=== PATIENT | female | born 1945 | race Caucasian/White ===

== ENCOUNTER → 2019-03-10 23:57 | Outpatient (CLI) | payer MEDICARE, OTHER, SELFPAY ==
[2019-03-10 17:14] VITALS: BMI 22.1
[2019-03-11 00:18] LABS: Absolute Lymphocyte Count 2.07 X10^3/ul (0.83-4.51); Absolute Neutrophil Count 3.5 X10^3/uL (2.0-7.7); Basophil# 0.03 X10^3/uL; Basophil% 0.5 % (0-1); Eosinophil# 0.15 X10^3/uL; Eosinophils% 2.4 % (0-5); Hematocrit 40.7 % (37-47); Hemoglobin 13.5 g/dl (12.0-15.0); Lymphocyte # 2.07 X10^3/ul (4.0); Lymphocyte % 32.7 % (19-41); Mean Corp Hgb Conc 33.2 g/gl (32-36); Mean Corpuscular Hgb 30.9 pg (27.0-32.0); Mean Corpuscular Volume 93.1 fL (81-99); Mean Platelet Vol. 9.7 fl (6.2-12.0); Monocyte# 0.59 X10^3/uL; Monocyte% 9.3 % (0-10); Neutrophil # 3.48 X10^3/uL (2.7-7.7); Neutrophil % 54.9 % (47-70); Platelet Count 326 K/mm3 (150-450); RBC Distribution Width CV 12.7 % (11.6-14.6); RBC Distribution Width SD 42.3 fl (35.1-43.9); Red Blood Count 4.37 M/mm3 (4.2-5.4); White Blood Count 6.3 K/mm3 (4.4-11.0)
[2019-03-11 00:26] LABS: POSITIVE COUNT NO; POSITIVE DIFFERENTIAL NO; POSITIVE MORPHOLOGY NO
[2019-03-11 00:37] LABS: ALB/GLOB Ratio 1.1 RATIO (0.9-2.4); AST(SGOT) 19 U/L (15-37); Alanine Aminotransfer ALT/SGPT 20 U/L (13-56); Albumin, Serum 3.9 g/dL (3.2-5.0); Alkaline Phosphatase 116 U/L (45-117); Anion Gap 5 (5-15); BUN 20 mg/dL (7-18); BUN/Creat Ratio 21.3 RATIO (10-20); Chloride 107 mmol/L (98-107); Cholesterol 195 mg/dL (200); Creatinine, Serum 0.94 mg/dL (0.55-1.02); EST Glomerular Filtration Rate 62 mL/min (>60); Est Glom Filt Rate - Afr Amer 75 mL/min (>60); Globulin 3.6 g/dL (2.2-4.2); Glucose 92 mg/dL (74-106); High Density Lipoprotein 55 mg/dL; Potassium 4.4 mmol/L (3.5-5.1); Protein, Total 7.5 g/dL (6.4-8.2); Sodium Level 140 mmol/L (136-145); Triglycerides 234 mg/dL; Very Low Density Lipoprotein 47 mg/dL (5-40)
== END ==
PROVIDERS: Referring Provider Nurse Practitioner; Visit Provider Nurse Practitioner
DX: E78.00 Pure hypercholesterolemia, unspecified (principal); R00.2 Palpitations
CPT/HCPCS: 80053; 80061; 85025

== ENCOUNTER → 2019-10-13 22:22 | Outpatient (CLI) | payer MEDICARE, OTHER, SELFPAY ==
[2019-10-13 15:03] VITALS: BMI 22.1
[2019-10-13 22:39] LABS: Absolute Lymphocyte Count 1.91 X10^3/uL (0.83-4.51); Absolute Neutrophil Count 3.8 X10^3/uL (2.0-7.7); Basophil# 0.03 X10^3/uL; Basophil% 0.4 % (0-1); Eosinophil# 0.21 X10^3/uL; Eosinophils% 3.1 % (0-5); Hematocrit 39.2 % (37-47); Hemoglobin 13.3 g/dL (12.0-15.0); Lymphocyte # 1.91 X10^3/ul (4.0); Lymphocyte % 28.6 % (19-41); Mean Corp Hgb Conc 33.9 g/dL (32-36); Mean Corpuscular Hgb 31.1 pg (27.0-32.0); Mean Corpuscular Volume 91.6 fL (81-99); Mean Platelet Vol. 10.4 fl (6.2-12.0); Monocyte# 0.71 X10^3/uL; Monocyte% 10.6 % (0-10); NRBC Flagged by Analyzer 0 % (0-5); Platelet Count 338 K/mm3 (150-450); RBC Distribution Width CV 12.1 % (11.6-14.6); RBC Distribution Width SD 40.3 fl (35.1-43.9); Red Blood Count 4.28 M/mm3 (4.2-5.4); White Blood Count 6.7 K/mm3 (4.4-11.0)
[2019-10-13 23:00] LABS: ALB/GLOB Ratio 1.1 RATIO (0.9-2.4); AST(SGOT) 28 U/L (15-37); Alanine Aminotransfer ALT/SGPT 23 U/L (13-56); Albumin, Serum 4.2 g/dL (3.2-5.0); Alkaline Phosphatase 95 U/L (45-117); Anion Gap 9 (5-15); BUN 15 mg/dL (7-18); BUN/Creat Ratio 16.1 RATIO (10-20); Calcium,Total 9.4 mg/dL (8.5-10.1); Chloride 106 mmol/L (98-107); Creatinine, Serum 0.93 mg/dL (0.55-1.02); EST Glomerular Filtration Rate 62 mL/min (>60); Est Glom Filt Rate - Afr Amer 76 mL/min (>60); Globulin 3.9 g/dL (2.2-4.2); Glucose 83 mg/dL (74-106); Potassium 3.2 mmol/L (3.5-5.1); Protein, Total 8.1 g/dL (6.4-8.2); Sodium Level 140 mmol/L (136-145)
== END ==
PROVIDERS: Referring Provider Nurse Practitioner; Visit Provider Nurse Practitioner
DX: I10 Essential (primary) hypertension (principal); E87.6 Hypokalemia
CPT/HCPCS: 80053; 85025

== ENCOUNTER → 2020-12-03 22:50 | Outpatient (CLI) | payer MEDICARE, OTHER, SELFPAY ==
[2020-12-03 15:45] VITALS: BMI 22.8
[2020-12-03 23:02] LABS: Absolute Lymphocyte Count 1.63 X10^3/uL (0.83-4.51); Absolute Neutrophil Count 4.3 X10^3/uL (2.0-7.7); Basophil# 0.03 X10^3/uL; Basophil% 0.5 % (0-1); Eosinophil# 0.06 X10^3/uL; Eosinophils% 0.9 % (0-5); Hematocrit 42.2 % (37-47); Hemoglobin 14.3 g/dL (12.0-15.0); Lymphocyte # 1.63 X10^3/ul (4.0); Mean Corp Hgb Conc 33.9 g/dL (32-36); Mean Corpuscular Hgb 31.5 pg (27.0-32.0); Mean Platelet Vol. 9.7 fl (6.2-12.0); Monocyte# 0.53 X10^3/uL; Monocyte% 8.1 % (0-10); NRBC Flagged by Analyzer 0 % (0-5); Neutrophil # 4.27 X10^3/uL (2.7-7.7); Neutrophil % 65.3 % (47-70); Platelet Count 306 K/mm3 (150-450); RBC Distribution Width CV 11.9 % (11.6-14.6); RBC Distribution Width SD 40.7 fl (35.1-43.9); Red Blood Count 4.54 M/mm3 (4.2-5.4); White Blood Count 6.5 K/mm3 (4.4-11.0)
[2020-12-03 23:15] LABS: ALB/GLOB Ratio 1.1 RATIO (0.9-2.4); AST(SGOT) 21 U/L (15-37); Alanine Aminotransfer ALT/SGPT 27 U/L (13-56); Albumin, Serum 4.2 g/dL (3.2-5.0); Alkaline Phosphatase 111 U/L (45-117); Anion Gap 7 (5-15); BUN 18 mg/dL (7-18); BUN/Creat Ratio 16.7 RATIO (10-20); Calcium,Total 9.2 mg/dL (8.5-10.1); Chloride 109 mmol/L (98-107); Cholesterol 157 mg/dL (200); Creatinine, Serum 1.08 mg/dL (0.55-1.02); EST Glomerular Filtration Rate 53 mL/min (>60); Est Glom Filt Rate - Afr Amer 64 mL/min (>60); Globulin 3.7 g/dL (2.2-4.2); Glucose 124 mg/dL (74-106); High Density Lipoprotein 62 mg/dL; Potassium 4.1 mmol/L (3.5-5.1); Protein, Total 7.9 g/dL (6.4-8.2); Sodium Level 143 mmol/L (136-145); Triglycerides 122 mg/dL; Very Low Density Lipoprotein 24 mg/dL (5-40)
[2020-12-05 20:51] LABS: Vitamin D 1,25-Dihydroxy 55.9 pg/mL (19.9-79.3)
== END ==
PROVIDERS: Referring Provider Nurse Practitioner; Visit Provider Nurse Practitioner
DX: I10 Essential (primary) hypertension (principal); E87.6 Hypokalemia; E55.9 Vitamin D deficiency, unspecified
CPT/HCPCS: 80053; 80061; 82652; 85025

== ENCOUNTER → 2020-12-20 21:47 | Outpatient (CLI) | payer MEDICARE, OTHER, SELFPAY ==
[2020-12-03 15:45] VITALS: BMI 22.8
[2020-12-20 22:00] LABS: Absolute Lymphocyte Count 1.74 X10^3/uL (0.83-4.51); Absolute Neutrophil Count 4.3 X10^3/uL (2.0-7.7); Basophil# 0.04 X10^3/uL; Basophil% 0.6 % (0-1); Eosinophil# 0.15 X10^3/uL; Eosinophils% 2.2 % (0-5); Hematocrit 39.5 % (37-47); Hemoglobin 13.5 g/dL (12.0-15.0); Lymphocyte # 1.74 X10^3/ul (4.0); Lymphocyte % 25.1 % (19-41); Mean Corp Hgb Conc 34.2 g/dL (32-36); Mean Corpuscular Hgb 32.3 pg (27.0-32.0); Mean Corpuscular Volume 94.5 fL (81-99); Mean Platelet Vol. 9.8 fl (6.2-12.0); Monocyte# 0.74 X10^3/uL; Monocyte% 10.7 % (0-10); NRBC Flagged by Analyzer 0 % (0-5); Neutrophil # 4.25 X10^3/uL (2.7-7.7); Neutrophil % 61.3 % (47-70); Platelet Count 269 K/mm3 (150-450); RBC Distribution Width CV 12.3 % (11.6-14.6); RBC Distribution Width SD 42.5 fl (35.1-43.9); Red Blood Count 4.18 M/mm3 (4.2-5.4); White Blood Count 6.9 K/mm3 (4.4-11.0)
[2020-12-20 22:32] LABS: ALB/GLOB Ratio 1.1 RATIO (0.9-2.4); AST(SGOT) 22 U/L (15-37); Alanine Aminotransfer ALT/SGPT 29 U/L (13-56); Alkaline Phosphatase 114 U/L (45-117); Anion Gap 3 (5-15); BUN 16 mg/dL (7-18); BUN/Creat Ratio 16.3 RATIO (10-20); CRP, High Sensitivity Cardiac 0.56 mg/L; Calcium,Total 9.2 mg/dL (8.5-10.1); Chloride 111 mmol/L (98-107); Creatinine, Serum 0.98 mg/dL (0.55-1.02); EST Glomerular Filtration Rate 59 mL/min (>60); Est Glom Filt Rate - Afr Amer 71 mL/min (>60); Globulin 3.5 g/dL (2.2-4.2); Glucose 91 mg/dL (74-106); Protein, Total 7.5 g/dL (6.4-8.2); Sodium Level 144 mmol/L (136-145); Thyroid Stim Hormone (TSH) 1.79 uIU/mL (0.358-3.74)
== END ==
PROVIDERS: PCP Nurse Practitioner; Referring Provider Nurse Practitioner; Visit Provider Nurse Practitioner
DX: I10 Essential (primary) hypertension (principal); R00.2 Palpitations
CPT/HCPCS: 80053; 84443; 84484; 85025; 86141

== ENCOUNTER → 2022-08-13 | Outpatient (CLI) | payer MEDICARE, SELFPAY ==
[2022-08-13 22:32] LABS: Absolute Lymphocyte Count 1.45 X10^3/uL (0.83-4.51); Absolute Neutrophil Count 5.4 X10^3/uL (2.0-7.7); Basophil# 0.05 X10^3/uL; Basophil% 0.6 % (0-1); Eosinophil# 0.17 X10^3/uL; Eosinophils% 2.2 % (0-5); Hematocrit 39.5 % (37-47); Hemoglobin 13.4 g/dL (12.0-15.0); Lymphocyte # 1.45 X10^3/ul (0.83-4.51); Lymphocyte % 18.8 % (19-41); Mean Corp Hgb Conc 33.9 g/dL (32-36); Mean Corpuscular Hgb 30.5 pg (27.0-32.0); Mean Platelet Vol. 9.8 fl (6.2-12.0); Monocyte# 0.67 X10^3/uL; Monocyte% 8.7 % (0-10); NRBC Flagged by Analyzer 0 % (0-5); Neutrophil # 5.36 X10^3/uL (2.7-7.7); Neutrophil % 69.4 % (47-70); Platelet Count 326 K/mm3 (150-450); RBC Distribution Width CV 13.5 % (11.6-14.6); RBC Distribution Width SD 44.6 fl (35.1-43.9); Red Blood Count 4.39 M/mm3 (4.2-5.4); White Blood Count 7.7 K/mm3 (4.4-11.0)
[2022-08-13 22:49] LABS: AST(SGOT) 117 U/L (15-37); Alanine Aminotransfer ALT/SGPT 144 U/L (13-56); Albumin, Serum 3.9 g/dL (3.2-5.0); Alkaline Phosphatase 171 U/L (45-117); Anion Gap 9 (5-15); BUN 17 mg/dL (7-18); Calcium,Total 9.4 mg/dL (8.5-10.1); Chloride 106 mmol/L (98-107); Cholesterol 157 mg/dL (200); Creatinine, Serum 0.85 mg/dL (0.55-1.02); EST Glomerular Filtration Rate 69 mL/min (>60); Est Glom Filt Rate - Afr Amer 84 mL/min (>60); Globulin 4.1 g/dL (2.2-4.2); Glucose 96 mg/dL (74-106); High Density Lipoprotein 72 mg/dL; Potassium 3.6 mmol/L (3.5-5.1); Sodium Level 140 mmol/L (136-145); Triglycerides 60 mg/dL; Very Low Density Lipoprotein 12 mg/dL (5-40)
[2022-08-13 23:03] LABS: Vitamin B12 374 pg/mL (211-911)
[2022-08-17 11:35] LABS: Vitamin D 1,25-Dihydroxy 69.6 pg/mL (24.8-81.5)
== END | disposition home or self-care (01) ==
PROVIDERS: PCP Nurse Practitioner; Visit Provider Nurse Practitioner
DX: I10 Essential (primary) hypertension (principal); G30.9 Alzheimer's disease, unspecified; F02.80 Dementia in other diseases classified elsewhere, unspecified severity, without behavioral disturbance, psychotic disturbance, mood disturbance, and anxiety
CPT/HCPCS: 80053; 80061; 82607; 82652; 85025

== ENCOUNTER → 2023-01-26 | Outpatient (CLI) | payer MEDICARE, SELFPAY ==
[2023-01-26 21:58] LABS: AST(SGOT) 17 U/L (15-37); Alanine Aminotransfer ALT/SGPT 23 U/L (13-56); Albumin, Serum 3.7 g/dL (3.2-5.0); Alkaline Phosphatase 102 U/L (45-117); Anion Gap 6 (5-15); BUN 20 mg/dL (7-18); Calcium,Total 9.3 mg/dL (8.5-10.1); Chloride 112 mmol/L (98-107); Cholesterol 144 mg/dL (200); Creatinine, Serum 0.91 mg/dL (0.55-1.02); EST Glomerular Filtration Rate 64 mL/min (>60); Est Glom Filt Rate - Afr Amer 77 mL/min (>60); Globulin 3.6 g/dL (2.2-4.2); Glucose 107 mg/dL (74-106); High Density Lipoprotein 68 mg/dL; Potassium 3.6 mmol/L (3.5-5.1); Protein, Total 7.3 g/dL (6.4-8.2); Sodium Level 145 mmol/L (136-145); Triglycerides 221 mg/dL; Very Low Density Lipoprotein 44 mg/dL (5-40)
[2023-01-26 21:59] LABS: Vitamin D,25 Hydroxy 12.5 ng/mL
[2023-01-26 22:08] LABS: Absolute Lymphocyte Count 1.61 X10^3/uL (0.83-4.51); Absolute Neutrophil Count 4.5 X10^3/uL (2.0-7.7); Basophil# 0.04 X10^3/uL; Basophil% 0.6 % (0-1); Eosinophil# 0.21 X10^3/uL; Hematocrit 40.8 % (37-47); Hemoglobin 13.4 g/dL (12.0-15.0); Lymphocyte # 1.61 X10^3/ul (0.83-4.51); Mean Corp Hgb Conc 32.8 g/dL (32-36); Mean Corpuscular Hgb 30.7 pg (27.0-32.0); Mean Corpuscular Volume 93.6 fL (81-99); Mean Platelet Vol. 10.8 fl (6.2-12.0); Monocyte# 0.65 X10^3/uL; Monocyte% 9.3 % (0-10); NRBC Flagged by Analyzer 0 % (0-5); Neutrophil # 4.48 X10^3/uL (2.7-7.7); Neutrophil % 63.8 % (47-70); Platelet Count 238 K/mm3 (150-450); RBC Distribution Width CV 13.7 % (11.6-14.6); RBC Distribution Width SD 46.9 fl (35.1-43.9); Red Blood Count 4.36 M/mm3 (4.2-5.4)
== END | disposition home or self-care (01) ==
PROVIDERS: PCP Nurse Practitioner; Visit Provider Nurse Practitioner
DX: I10 Essential (primary) hypertension (principal); E87.6 Hypokalemia; E78.00 Pure hypercholesterolemia, unspecified; E55.9 Vitamin D deficiency, unspecified
CPT/HCPCS: 80053; 80061; 82306; 85025

== ENCOUNTER → 2024-01-26 | Outpatient (CLI) | payer MEDICARE, SELFPAY ==
[2024-01-26 21:43] LABS: Absolute Lymphocyte Count 1.56 X10^3/uL (0.83-4.51); Basophil# 0.05 X10^3/uL; Basophil% 0.8 % (0-1); Eosinophil# 0.18 X10^3/uL; Eosinophils% 2.8 % (0-5); Hematocrit 39.9 % (37-47); Hemoglobin 12.8 g/dL (12.0-15.0); Lymphocyte # 1.56 X10^3/ul (0.83-4.51); Lymphocyte % 23.9 % (19-41); Mean Corp Hgb Conc 32.1 g/dL (32-36); Mean Corpuscular Hgb 30.2 pg (27.0-32.0); Mean Corpuscular Volume 94.1 fL (81-99); Mean Platelet Vol. 9.5 fl (6.2-12.0); Monocyte# 0.75 X10^3/uL; Monocyte% 11.5 % (0-10); NRBC Flagged by Analyzer 0 % (0-5); Neutrophil # 3.97 X10^3/uL (2.7-7.7); Neutrophil % 60.7 % (47-70); Platelet Count 302 K/mm3 (150-450); RBC Distribution Width CV 13.9 % (11.6-14.6); RBC Distribution Width SD 47.3 fl (35.1-43.9); Red Blood Count 4.24 M/mm3 (4.2-5.4); White Blood Count 6.5 K/mm3 (4.4-11.0)
[2024-01-26 21:59] LABS: ALB/GLOB Ratio 0.9 RATIO (0.9-2.4); AST(SGOT) 19 U/L (15-37); Alanine Aminotransfer ALT/SGPT 24 U/L (13-56); Albumin, Serum 3.6 g/dL (3.2-5.0); Alkaline Phosphatase 106 U/L (45-117); Anion Gap 6 (5-15); BUN 13 mg/dL (7-18); BUN/Creat Ratio 13.4 RATIO (10-20); Calcium,Total 9.2 mg/dL (8.5-10.1); Chloride 105 mmol/L (98-107); Creatinine, Serum 0.97 mg/dL (0.55-1.02); EST Glomerular Filtration Rate 59 mL/min (>60); Est Glom Filt Rate - Afr Amer 72 mL/min (>60); Globulin 3.8 g/dL (2.2-4.2); Glucose 99 mg/dL (74-106); Potassium 4.2 mmol/L (3.5-5.1); Protein, Total 7.4 g/dL (6.4-8.2); Sodium Level 140 mmol/L (136-145); Thyroid Stim Hormone (TSH) 2.75 uIU/mL (0.358-3.74)
[2024-01-26 22:05] LABS: Vitamin B12 908 pg/mL (211-911)
[2024-01-29 12:09] LABS: Vitamin D 1,25-Dihydroxy 64.8 pg/mL (24.8-81.5)
== END | disposition home or self-care (01) ==
PROVIDERS: PCP Nurse Practitioner; Visit Provider Nurse Practitioner
DX: G30.9 Alzheimer's disease, unspecified (principal); F02.80 Dementia in other diseases classified elsewhere, unspecified severity, without behavioral disturbance, psychotic disturbance, mood disturbance, and anxiety; I10 Essential (primary) hypertension; E87.6 Hypokalemia; F41.0 Panic disorder [episodic paroxysmal anxiety]; E78.5 Hyperlipidemia, unspecified; R41.82 Altered mental status, unspecified; R50.9 Fever, unspecified
CPT/HCPCS: 80053; 81291; 82607; 82652; 84443; 85025; 87086

== ENCOUNTER → 2024-09-21 | Outpatient (CLI) | payer MEDICARE, SELFPAY ==
[2024-09-21 22:32] LABS: Absolute Lymphocyte Count 1.36 X10^3/uL (0.83-4.51); Basophil# 0.03 X10^3/uL; Basophil% 0.5 % (0-1); Eosinophil# 0.12 X10^3/uL; Hematocrit 39.3 % (37-47); Hemoglobin 13.1 g/dL (12.0-15.0); Lymphocyte # 1.36 X10^3/ul (0.83-4.51); Lymphocyte % 22.9 % (19-41); Mean Corp Hgb Conc 33.3 g/dL (32-36); Mean Corpuscular Hgb 31.2 pg (27.0-32.0); Mean Corpuscular Volume 93.6 fL (81-99); Mean Platelet Vol. 10.5 fl (6.2-12.0); Monocyte# 0.44 X10^3/uL; Monocyte% 7.4 % (0-10); NRBC Flagged by Analyzer 0 % (0-5); Neutrophil # 3.96 X10^3/uL (2.7-7.7); Neutrophil % 66.5 % (47-70); Platelet Count 255 K/mm3 (150-450); RBC Distribution Width CV 12.9 % (11.6-14.6); RBC Distribution Width SD 44.2 fl (35.1-43.9)
[2024-09-21 22:48] LABS: AST(SGOT) 17 U/L (15-37); Alanine Aminotransfer ALT/SGPT 18 U/L (13-56); Albumin, Serum 3.7 g/dL (3.2-5.0); Alkaline Phosphatase 86 U/L (45-117); Anion Gap 4 (5-15); BUN 15 mg/dL (7-18); BUN/Creat Ratio 14.4 RATIO (10-20); Calcium,Total 9.5 mg/dL (8.5-10.1); Chloride 107 mmol/L (98-107); Cholesterol 205 mg/dL (200); Creatinine, Serum 1.04 mg/dL (0.55-1.02); EST Glomerular Filtration Rate 54 mL/min (>60); Est Glom Filt Rate - Afr Amer 66 mL/min (>60); Globulin 3.6 g/dL (2.2-4.2); Glucose 135 mg/dL (74-106); High Density Lipoprotein 59 mg/dL; Potassium 3.5 mmol/L (3.5-5.1); Protein, Total 7.3 g/dL (6.4-8.2); Sodium Level 141 mmol/L (136-145); Triglycerides 162 mg/dL; Very Low Density Lipoprotein 32 mg/dL (5-40)
== END | disposition home or self-care (01) ==
PROVIDERS: PCP Nurse Practitioner; Referring Provider Nurse Practitioner; Visit Provider Nurse Practitioner
DX: R41.82 Altered mental status, unspecified (principal); E78.2 Mixed hyperlipidemia; I10 Essential (primary) hypertension; E87.6 Hypokalemia; E78.00 Pure hypercholesterolemia, unspecified
CPT/HCPCS: 80053; 80061; 85025

== ENCOUNTER → 2025-03-10 | Outpatient (REF) | payer MEDICARE, SELFPAY ==
[2025-03-10 06:17] LABS: Hemoglobin 13.2 g/dL (12.0-15.0); Mean Corp Hgb Conc 33.8 g/dL (32-36); Mean Corpuscular Volume 91.5 fL (81-99); Mean Platelet Vol. 9.6 fl (6.2-12.0); Platelet Count 291 K/mm3 (150-450); RBC Distribution Width CV 12.8 % (11.6-14.6); RBC Distribution Width SD 42.4 fl (35.1-43.9); Red Blood Count 4.26 M/mm3 (4.2-5.4); White Blood Count 8.2 K/mm3 (4.4-11.0)
[2025-03-10 06:36] LABS: Hemoglobin A1c 5.7 % (<=5.6)
[2025-03-10 06:47] LABS: ALB/GLOB Ratio 1.4 RATIO (0.9-2.4); AST(SGOT) 21 U/L (<=31); Alanine Aminotransfer ALT/SGPT 14 U/L (<=34); Albumin, Serum 4.1 g/dL (3.4-4.8); Alkaline Phosphatase 73 U/L (35-104); Anion Gap 11 (5-15); BUN 13 mg/dL (4-19); BUN/Creat Ratio 16.2 RATIO (10-20); Calcium,Total 9.6 mg/dL (7.6-11.0); Carbon Dioxide 24.8 mmol/L (21.0-32.0); Chloride 107 mmol/L (98-108); Cholesterol 214 mg/dL (<=200); Creatinine, Serum 0.82 mg/dL (0.70-1.20); EST Glomerular Filtration Rate 74 (>60); Glucose 102 mg/dL (70-99); High Density Lipoprotein 62 mg/dL; Low Density Lipoprotein Calc. 136 mg/dL; Potassium 4.1 mmol/L (3.3-5.1); Protein, Total 7.2 g/dL (5.9-8.4); Sodium Level 143 mmol/L (133-145); T4 Total, Thyroxin 5.1 ug/dL (4.8-13.9); Total Bilirubin 0.26 mg/dL (0.00-1.30); Triglycerides 78 mg/dL; Very Low Density Lipoprotein 16 mg/dL (5-40); cholesterol:hdl ratio screen 3.43
== END ==
LOC: OLS.SW 05:00
PROVIDERS: PCP Nurse Practitioner; Visit Provider Family Medicine
DX: Z00.00 Encounter for general adult medical examination without abnormal findings (principal); F03.90 Unspecified dementia, unspecified severity, without behavioral disturbance, psychotic disturbance, mood disturbance, and anxiety; I10 Essential (primary) hypertension; E87.6 Hypokalemia; E78.00 Pure hypercholesterolemia, unspecified; Z79.899 Other long term (current) drug therapy
CPT/HCPCS: 36415; 80053; 80061; 83036; 84436; 84443; 85027

== ENCOUNTER → 2025-05-30 04:00 | Outpatient (REF) | payer MEDICARE, SELFPAY ==
--- OUTSIDE RECORDS SUMMARY | 2025-05-30 04:06 | XMS RPT_ITS | CCD ---
Author Organization [facility] Care Team Providers Care Technical Support Agent Name Role Phone HAWK PERKINS, DR ROSEMARY Molina Primary Care Physician [phone] Joey FIELD CROP TECHNICAL OFFICER.Emi LOPEZ Primary Care Provide r Yoselyn Paez Attending Unavailable Cook, Emi Primary Care Unavailable PROVIDER, UNKNOWN Referring Unavailable PROVIDER, UNKNOWN Referring Unavailable GUNJAN CASTILLO Attending Unavailabl e Joey, Emi Primary Care Unavailable PROVIDER, UNKNOWN Referring Unavailable GUNJAN CASTILLO Attending Unavailabl e Cook, Emi Primary Care Unavailable PROVIDER, UNKNOWN Referring Unavailable GUNJAN CASTILLO Attending Unavailabl e Cook, Emi Primary Care Unavailable PROVIDER, UNKNOWN Referring Unavailable GUNJAN CASTILLO Attending Unavailabl e Cook, Emi Primary Care Unavailable Cook, Emi Primary Care Provider Joey FIELD CROP TECHNICAL OFFICER.Emi LOPEZ Primary Care Provide r Ventura Cooka Primary Care Provider PROVIDER, UNKNOWN Attending Unavailable PROVIDER, UNKNOWN Admitting Unavailable PATIENT, SELF Referring Unavailable Unavailable Primary Care Provider Unavailabl e Cook, Emi Primary Care Provider Cook, Emi Primary Care Provider [phone] Joey FIELD CROP TECHNICAL OFFICER.JOHN Emi L Primary Care Provide r Celina Levy MD Unavailable EMI COOK Primary Care Unavailable PUSHPARAJI, NICK Admitting Unavailable EDDIE, NICK Attending Unavailable SHAKILA WARE Attending Unavailable COOK, EMI L Primary Care Unavailable JOEY, EMI L Primary Care Unavailable SHAKILA RUIZ Attending Unavailable COOK, EMI Primary Care Unavailable GUNJAN CASTILLO Attending Unavailable GUNJAN CASTILLO Attending Unavailable COOK, EMI Primary Care Unavailable COOK, EMI Primary Care Unavailable GUNJAN CASTILLO Referring Unavailable GUNJAN CASTILLO Attending Unavailable BRADFORD, AMILCAR Referring Unavailable COOK, EMI L Primary Care Unavailable BRADFORD, AMILCAR Referring Unavailable COOK, EMI L Primary Care Unavailable BRADFORD, AMILCAR Referring Unavailable COOK, EMI L Primary Care Unavailable COOK, EMI L Primary Care Unavailable COOK, EMI L Primary Care Unavailable BRADFORD, AMILCAR Referring Unavailable COOK, EMI L Primary Care Unavailable BRADFORD, AMILCAR Referring Unavailable COOK, EMI L Primary Care Unavailable COOK, EMI L Primary Care Unavailable Cook SPECIAL LIBRARY LIBRARIAN, Emi Primary Care Unavailable Cook SPECIAL LIBRARY LIBRARIAN, Emi Attending Unavailable Cook SPECIAL LIBRARY LIBRARIAN, Emi Referring Unavailable Josué Orr Attending Unavailable Cook SPECIAL LIBRARY LIBRARIAN, Emi Primary Care Unavailable Allergies Allergy Classification Reported Allergen(s) Allergy Type Date of Onset Reaction(s) Facility (3 sources) cat dander; Translations: [cat dander] Allergy to substance 2 NEEDS FOLLOW-UP [facility] Medications Current Medications Medication Drug Class(es) Dates Sig (Normalized) Sig (Original) aspirin 81 mg delayed release oral tablet (20 sources) Platelet Aggregation Inhibitor, Nonsteroidal Anti-inflammatory Drug Start: 10-07-2019 End: 08-31-2023 take 1 tablet by mouth once daily aspirin, enteric coated (ASPIRIN, ENTERIC COATED) 81 mg EC tablet Take 1 tablet by mouth once daily. 31 tablet 10/07/2019 Active Start: 11-30-2015 aspirin 0 Refi ll(s) Start Date: 11/30/15 Status: Ordered Comment on above: Take 1 tablet by yina th once daily. atorvastatin 40 mg oral tablet (20 sources) HMG-CoA Reductase Inhibitor Start: 9 End: 5 take 1 tablet by mouth once daily at bedtime atorvastatin (LIPITOR) 40 mg tablet Take 1 tablet by mouth daily at bedtime. 31 tablet 10/07/2019 Active Comment on above: Take 1 tablet by yina th daily at bedtime. donepezil hydrochloride 10 mg oral tablet (20 sources) Start: 2 End: 5 take 1 tablet by mouth once daily donepezil (ARICEPT) 10 mg tablet TAKE 1 TABLET BY MOUTH NIGHTLY 02/19/2022 Active Start: 11-19-2021 take 5 mg by mouth once daily Donepezil Active 5 MG PO DAILY November 19, 2021 1:00am Comment on above: TAKE 1 TABLET BY YINA TH NIGHTLY Folic Acid (12 sources) Folic Acid (OSBALDO TE PO) Take by mouth. Active Folic Acid (OSBALDO TE PO) Take by mouth. 0 Active loperamide hydrochloride 2 mg oral tablet (20 sources) Opioid Agonist take 2 mg by mouth every twenty-four hours as needed Loperamide HCl (IMODIUM PO) Take 2 mg by mouth Daily as needed (diarrhea). PRN Active Loperamide HCl ( IMODIUM PO) Take by mouth. PRN Active Loperamide HCl ( IMODIUM PO) Take by mouth. PRN 0 Active Loperamide HCl ( IMODIUM PO) Take by mouth. 0 Active memantine hydrochloride 10 mg oral tablet (20 sources) I-caslhb-E-aspartate Receptor Antagonist Start: 04-09-2023 memantine (NAMENDA) 10 MG tablet 04/09/2023 Active Start: 01-27-2023 take 1 tablet by yina th twice daily memantine (Namenda) 10 MG tablet Take 10 mg by mouth 2 times daily. 01/27/2023 Active 24 hr metoprolol succinate 25 mg extended release oral tablet (20 sources) beta-Adrenergic Toribio Start: 03-10-2019 End: 08-31-2023 take 1 tablet by mouth twice daily metoprolol succinate ER (TOPROL XL) 25 mg 24 hr tablet Take 1 tablet by mouth twice daily. 12/27/2020 Active Start: 11-30-2015 metoprolol tar trate 25 mg oral tablet Dose : 25 mg = 1 tab(s), Oral, BID, 0 Refill(s) Start Date: 11/30/15 Status: Ordered Comment on above: Take 1 tablet by yina th twice daily. multivit-min/ferrous fumarate (MULTI VITAMIN ORAL) (20 sources) multivit-min/marion twin fumarate (MULTI VITAMIN ORAL) Take by mouth. Active multivit-min/marion twin fumarate (MULTI VITAMIN ORAL) Take by mouth. 0 Active Comment on above: Take by mouth. Multivitamin preparation (2 sources) Start: 1 take 1 tablet by mouth once daily Multivitamin Active 1 TABLET PO DAILY December 21, 2020 1:00am PARoxetine mesylate 10 mg oral tablet (1 source) Serotonin Reuptake Inhibitor Start: 5 take 1 dose by mouth once daily Paxil Dose : 10 mg =, Oral, qDay, 0 Refill(s) Start Date: 10/11/15 Status: Ordered pyridoxine (12 sources) Pyridoxine HCl (VITAMIN B-6 PO) Take by mouth. Active Pyridoxine HCl ( VITAMIN B-6 PO) Take by mouth. 0 Active QUEtiapine 50 mg oral tablet (17 sources) Atypical Antipsychotic End: 02-25-2024 QUEtiapine (SEROquel) 50 MG tablet Take 50 mg by mouth See administration instructions. 25 mg at 10:00 am, 25 mg at 2:00 pm, 50 mg at 5:00 pm and 50 mg at 8:00 pm Active End: 02-23-2025 QUEtiapine (SEROquel) 25 MG tablet Take 50 mg by mouth See administration instructions. Take 50 mg at lunch, 50mg at 4 and 100mg at 8pm 02/23/2025 Discontinued QUEtiapine (SERO quel) 25 MG tablet Take 12.5 mg by mouth See administration instructions. Take 12.5 mg in Am, 12.5 mg in PM, and 37.5 mg nightly Active sertraline 100 mg oral tablet (20 sources) Serotonin Reuptake Inhibitor Start: 01-26-2024 take 100 mg by mouth once daily Sertraline Active 100 MG PO DAILY January 26, 2024 5:56pm Start: 08-31-2023 End: 08-31-2023 take 50 mg by mouth once daily Sertraline Discontinued 50 MG PO DAILY August 31, 2023 7:23pm August 31, 2023 7:25pm Start: 08-31-2023 End: 01-26-2024 take 50 mg by mouth once daily Sertraline Discontinued 50 MG PO DAILY August 31, 2023 12:00am January 26, 2024 5:56pm Start: 02-26-2023 End: 07-22-2025 take 1 tablet by mouth once daily sertraline (Zoloft) 100 MG tablet Indications: Depression, unspecified depression type Take 1 tablet (100 mg) by mouth daily. 30 tablet 11 07/22/2024 07/22/2025 Active Start: 01-27-2023 End: 02-26-2023 take 1 tablet by mouth once daily in the morning sertraline (Zoloft) 50 MG tablet Take 50 mg by mouth every morning. 0 01/27/2023 02/26/2023 Discontinued Start: 08-22-2022 take 1 tablet by yina th once daily sertraline (ZOLOFT) 50 MG tablet Take 1 tablet by mouth daily 90 tablet 1 08/22/2022 Active Start: 11-19-2021 End: 08-31-2023 take 25 mg by mouth once daily Sertraline Discontinued 25 MG PO DAILY November 19, 2021 1:00am August 31, 2023 7:24pm zolpidem tartrate 10 mg oral tablet (11 sources) gamma-Aminobutyric Acid-ergic Agonist take 1 tablet by mouth once daily as needed for sleep zolpidem (Ambien) 10 MG tablet Take 10 mg by mouth Nightly as needed for sleep. Active End: 08-25-2024 take 10 mg by mouth once daily as needed for sleep zolpidem CR (Ambien CR) 12.5 MG ER tablet Take 10 mg by mouth Nightly as needed for sleep. Do not crush, chew, or split. 08/25/2024 Discontinued Completed/Discontinued Medications Medication Drug Class(es) Dates Sig (Normalized) Sig (Original) amoxicillin 875 mg oral tablet (2 sources) Penicillin-class Antibacterial Start: 08-27-2019 End: 12-03-2020 take 875 mg by mouth twice daily Amoxicillin Discontinued 875 MG PO TWICE A DAY August 27, 2019 12:00am December 03, 2020 4:49pm cinnamon bark 500 mg oral capsule (2 sources) Start: 12-21-2020 End: 08-13-2022 take 1 capsule by mouth once daily Cinnamon Bark (Cinnamon) 500 mg capsule Discontinued 1000 MG PO DAILY December 21, 2020 1:00am August 13, 2022 3:33pm cyclobenzaprine hydrochloride 5 mg oral tablet (1 source) Muscle Relaxant Start: 12-07-2023 End: 01-26-2024 take 5 mg by mouth three times daily Cyclobenzaprine Discontinued 5 MG PO THREE TIMES A DAY December 07, 2023 1:00am January 26, 2024 5:55pm diphenhydrAMINE hydrochloride 25 mg oral capsule (2 sources) Histamine-1 Receptor Antagonist Start: 12-21-2020 End: 08-31-2023 take 1 capsule by mouth twice daily Diphenhydramine Hcl (Benadryl) 25 mg capsule Discontinued 25 MG PO TWICE A DAY December 21, 2020 1:00am August 31, 2023 7:22pm mecobalamin 5 mg oral lozenge (2 sources) Start: 11-19-2021 End: 08-13-2022 take 5000 ug by mouth once daily Mecobalamin (Vitamin B12) Discontinued 5000 MCG PO DAILY November 19, 2021 1:00am August 13, 2022 3:33pm allow to dissolve in mouth OR may chew lightly before swallowing potassium chloride 20 meq extended release oral tablet (2 sources) Start: 10-17-2019 End: 12-03-2020 take 20 mEq by mouth once daily Potassium Chloride Discontinued 20 MEQ PO DAILY October 17, 2019 1:00am December 03, 2020 4:50pm predniSONE 20 mg oral tablet (1 source) Start: 12-07-2023 End: 01-26-2024 take 40 mg by mouth once daily Prednisone Discontinued 40 MG PO DAILY December 07, 2023 1:00am January 26, 2024 5:55pm valACYclovir 1000 mg oral tablet (4 sources) Herpesvirus Nucleoside Analog DNA Polymerase Inhibitor, Herpes Simplex Virus Nucleoside Analog DNA Polymerase Inhibitor, Herpes Zoster Virus Nucleoside Analog DNA Polymerase Inhibitor Start: 01-26-2023 End: 02-26-2023 valACYclovir (Valtrex) 1 g tablet Take 1,000 mg by mouth. 0 01/26/2023 02/26/2023 Discontinued Start: 01-26-2023 End: 02-02-2023 take 1000 mg by mouth three times daily Valacyclovir Discontinued 1000 MG PO THREE TIMES A DAY 29 05January 26, 2023 12:00am February 02, 2023 12:04am vitamin b12 0.5 mg oral tablet (3 sources) Vitamin B12 Start: 11-18-2021 End: 02-26-2023 take 1 tablet by mouth once daily cyanocobalamin (Vitamin B-12) 500 MCG tablet Take 1 tablet by mouth daily. 0 11/18/2021 02/26/2023 Discontinued Problems Active Problems Problem Classification Problem Date Documented Da te Episodic/Chronic Anxiety disorders (1 source) Panic attack; Translations: [Panic disorder [episodic paroxysmal anxiety]] 01-26-2024 Chronic Cardiac dysrhythmias (20 sources) Paroxysmal supraventricular tachycardia; Translations: [Supraventricular tachycardia] Onset: 1 Chronic Delirium, dementia, and amnestic and other cognitive disorders (20 sources) Alzheimer's disease with late onset; Translations: [Dementia in other diseases classified elsewhere without behavioral disturbance] Onset: 2 Chronic Disorders of lipid metabolism (20 sources) Pure hypercholesterolemia; Translations: [Pure hypercholesterolemia, unspecified] Onset: 9 Chronic Diverticulosis and diverticulitis (1 source) Diverticulitis of intestine, part unspecified, without perforation or abscess without bleeding; Translations: [Diverticulitis] Onset: 4 Chronic Essential hypertension (20 sources) Hypertensive disorder; Translations: [Essential (primary) hypertension] Onset: 3 12-20-2020 Chronic Fluid and electrolyte disorders (20 sources) Hypokalemia; Translations: [Hypokalemia] Onset: 9 Resolved: 9 10-13-2019 Episodic Mood disorders (20 sources) Depressive disorder; Translations: [Depression, unspecified depression type] Onset: 3 10-11-2015 Chronic Mood disorders (2 sources) Mood disorders; Translations: [Depression, unspecified] Onset: 2 Nutritional deficiencies (4 sources) Deficiency of other specified B group vitamins; Translations: [Cobalamin deficiency] Onset: 2 Episodic Other and unspecified benign neoplasm (1 source) Benign neoplasm of soft tissue; Translations: [Melanocytic nevi, unspecified] 04-13-2023 Episodic Other gastrointestinal disorders (1 source) Diarrhea, unspecified; Translations: [Diarrhea, unspecified type] Onset: 4 Episodic Other screening for suspected conditions (not mental disorders or infectious disease) (2 sources) Patient encounter status; Translations: [Encounter for screening mammogram for malignant neoplasm of breast] 03-10-2019 Episodic Other skin disorders (1 source) Seborrheic keratosis; Translations: [Other seborrheic keratosis] 04-13-2023 Episodic Other skin disorders (1 source) Ephelis; Translations: [Freckles] 04-13-2023 Episodic Other skin disorders (1 source) Lentiginosis; Translations: [Other melanin hyperpigmentation] 04-13-2023 Episodic Residual codes; unclassified (1 source) Memory impairment; Translations: [Other amnesia] 09-24-2023 Episodic Residual codes; unclassified (2 sources) Driving fitness status; Translations: [Other specified personal risk factors, not elsewhere classified] 10-22-2023 Episodic Residual codes; unclassified (1 source) Altered mental status; Translations: [Altered mental status, unspecified] 01-27-2024 Episodic Screening and history of mental health and substance abuse codes (2 sources) H/O: depression; Translations: [Personal history of other mental and behavioral disorders] 10-22-2023 Episodic Unclassified (1 source) Dementia in other diseases classified elsewhere, unspecified severity, with other behavioral disturbance (HCC); Translations: [Dementia in other diseases classified elsewhere, unspecified severity, with other behavioral disturbance (HCC)] Onset: 4 Viral infection (1 source) COVID-19; Translations: [COVID-19] Onset: 4 Past or Other Problems Problem Classification Problem Date Documented Da te Episodic/Chronic Abdominal pain (15 sources) Abdominal pain; Translations: [Unspecified abdominal pain] Onset: 01-03-2024 01-03-2024 Episodic Cardiac dysrhythmias (20 sources) Palpitations; Translations: [Palpitations] Onset: 02-26-2023 03-10-2019 Episodic E Codes: Fall (1 source) Unspecified fall, initial encounter; Translations: [Fall, initial encounter] Onset: 01-13-2024 Episodic Fever of unknown origin (20 sources) Fever; Translations: [Fever, unspecified] Onset: 02-26-2023 08-27-2019 Episodic Nonspecific chest pain (12 sources) Chest pain; Translations: [Chest pain, unspecified] Onset: 10-06-2019 Resolved: 10-07-2019 10-07-2019 Episodic Other connective tissue disease (20 sources) Pain in buttock; Translations: [Myalgia, other site] Onset: 02-26-2023 01-26-2023 Episodic Other injuries and conditions due to external causes (1 source) Unspecified injury of head, initial encounter; Translations: [Injury of head, initial encounter] Onset: 01-13-2024 Episodic Other upper respiratory infections (20 sources) Acute maxillary sinusitis; Translations: [Acute maxillary sinusitis, unspecified] Onset: 02-26-2023 08-27-2019 Episodic Residual codes; unclassified (2 sources) Other amnesia; Translations: [Other amnesia] Onset: 10-14-2021 Episodic Residual codes; unclassified (1 source) Disorientation, unspecified; Translations: [Delirium] Onset: 01-03-2024 Episodic Residual codes; unclassified (1 source) Altered mental status, unspecified; Translations: [Altered mental status, unspecified] Onset: 10-20-2024 Episodic Spondylosis; intervertebral disc disorders; other back problems (15 sources) Backache; Translations: [Dorsalgia, unspecified] Onset: 01-03-2024 01-03-2024 Episodic Unclassified (1 source) Dementia in other diseases classified elsewhere, unspecified severity, with other behavioral disturbance (HCC); Translations: [Dementia in other diseases classified elsewhere, unspecified severity, with other behavioral disturbance (HCC)] Onset: 08-25-2024 Viral infection (20 sources) Herpes zoster; Translations: [Zoster without complications] Onset: 02-26-2023 01-27-2023 Episodic Results Test Name Value Interpretation Reference Range Facility CBC-Complete Blood Cnt No Di ffon 03-10-2025 Erythrocyte distribution width (RBC) [Ratio] 12.8 % Normal 11.6-14.6 [facility] Comment on above: Order Comment: 402-1 Performed By: #### L [id number], L501.9985, L100.0500, L501.9520, L500.4050, L500.4100 #### [facility] [address] [place], [place], [id number] Hematocrit (Bld) [Volume fraction] 39.0 % Normal 37-47 [facility] Comment on above: Order Comment: 402-1 Performed By: #### L [id number], [id number], L100.0500, L501.9520, L500.4050, L500.4100 #### [facility] [address] [place], [address] Hemoglobin (Bld) [Mass/Vol] 13.2 g/dL Normal 12.0-15.0 [facility] Comment on above: Order Comment: 402-1 Performed By: #### L [id number], [id number], L100.0500, L501.9520, L500.4050, L500.4100 #### [facility] [address] [place], [address] MCH (RBC) [Entitic mass] 31.0 pg Normal 27.0-32.0 [facility] Comment on above: Order Comment: 402-1 Performed By: #### L [id number], [id number], L100.0500, L501.9520, L500.4050, L500.4100 #### [facility] [address] [place], [address] MCHC (RBC) [Mass/Vol] 33.8 g/dL Normal 32-36 [facility] Comment on above: Order Comment: 402-1 Performed By: #### L [id number], [id number], L100.0500, L501.9520, L500.4050, L500.4100 #### [facility] [address] [place], [address] MCV (RBC) [Entitic vol] 91.5 fL Normal 81-99 [facility] Comment on above: Order Comment: 402-1 Performed By: #### L [id number], [id number], L100.0500, L501.9520, L500.4050, L500.4100 #### [facility] [address] [place], [address] Platelet mean volume (Bld) [Entitic vol] 9.6 fL Normal 6.2-12.0 [facility] Comment on above: Order Comment: 402-1 Performed By: #### L [id number], [id number], L100.0500, L501.9520, L500.4050, L500.4100 #### [facility] [address] [place], [address] Platelets (Bld) [#/Vol] 291 10*3/uL Normal 150-450 [facility] Comment on above: Order Comment: 402-1 Performed By: #### L [id number], [id number], L100.0500, L501.9520, L500.4050, L500.4100 #### [facility] [address] [place], [address] RBC (Bld) [#/Vol] 4.26 10*6/uL Normal 4.2-5.4 [facility] Comment on above: Order Comment: 402-1 Performed By: #### L [id number], [id number], L100.0500, L501.9520, L500.4050, L500.4100 #### [facility] [address] [place], [address] RDW SD 42.4 fl Normal 35.1-43.9 [facility] Comment on above: Order Comment: 402-1 Performed By: #### L [id number], [id number], L100.0500, L501.9520, L500.4050, L500.4100 #### [facility] [address] [place], [address] WBC (Bld) [#/Vol] 8.2 10*3/uL Normal 4.4-11.0 [facility] Comment on above: Order Comment: 402-1 Performed By: #### L [id number], [id number], L100.0500, L501.9520, L500.4050, L500.4100 #### [facility] [address] [place], [address] Comprehensive Metabolic Prof ilon 03-10-2025 Albumin [Mass/Vol] 4.1 g/dL Normal 3.4-4.8 [facility] Comment on above: Order Comment: 402-1 Performed By: #### L [id number], [id number], L100.0500, L501.9520, L500.4050, L500.4100 #### [facility] [address] [place], [address] Albumin/Globulin [Mass ratio] 1.4 {ratio} Normal 0.9-2.4 [facility] Comment on above: Order Comment: 402-1 Performed By: #### L [id number], [id number], L100.0500, L501.9520, L500.4050, L500.4100 #### [facility] [address] [place], [address] ALK PHOS 73 U/L Normal 35-104 [facility] Comment on above: Order Comment: 402-1 Performed By: #### L [id number], [id number], L100.0500, L501.9520, L500.4050, L500.4100 #### [facility] [address] [place], [address] ALT [Catalytic activity/Vol] 14 U/L Normal <=34 [facility] Comment on above: Order Comment: 402-1 Performed By: #### L [id number], [id number], L100.0500, L501.9520, L500.4050, L500.4100 #### [facility] [address] [place], [address] AST [Catalytic activity/Vol] 21 U/L Normal <=31 [facility] Comment on above: Order Comment: 402-1 Performed By: #### L [id number], [id number], L100.0500, L501.9520, L500.4050, L500.4100 #### [facility] [address] [place], [address] Bilirubin [Mass/Vol] 0.26 mg/dL Normal 0.00-1.30 [facility] Comment on above: Order Comment: 402-1 Performed By: #### L [id number], [id number], L100.0500, L501.9520, L500.4050, L500.4100 #### [facility] [address] [place], [address] BUN/CRE 16.2 RATIO Normal 10-20 [facility] Comment on above: Order Comment: 402-1 Performed By: #### L [id number], [id number], L100.0500, L501.9520, L500.4050, L500.4100 #### [facility] [address] [place], [address] Calcium [Mass/Vol] 9.6 mg/dL Normal 7.6-11.0 [facility] Comment on above: Order Comment: 402-1 Performed By: #### L [id number], [id number], L100.0500, L501.9520, L500.4050, L500.4100 #### [facility] [address] [place], [address] Chloride [Moles/Vol] 107 mmol/L Normal 98-108 [facility] Comment on above: Order Comment: 402-1 Performed By: #### L [id number], [id number], L100.0500, L501.9520, L500.4050, L500.4100 #### [facility] [address] [place], [address] CO2 [Moles/Vol] 24.8 mmol/L Normal 21.0-32.0 [facility] Comment on above: Order Comment: 402-1 Performed By: #### L [id number], [id number], L100.0500, L501.9520, L500.4050, L500.4100 #### [facility] [address] [place], [address] Creatinine [Mass/Vol] 0.82 mg/dL Normal 0.70-1.20 [facility] Comment on above: Order Comment: 402-1 Performed By: #### L [id number], [id number], L100.0500, L501.9520, L500.4050, L500.4100 #### [facility] [address] [place], [address] GAP 11 Normal 5-15 [facility] Comment on above: Order Comment: 402-1 Performed By: #### L [id number], [id number], L100.0500, L501.9520, L500.4050, L500.4100 #### [facility] [address] [place], [address] GFR/1.73 sq M.predicted among non-blacks MDRD (S/P/Bld) [Vol rate/Area] 74 mL/min/{1.73_m2} Normal >60 [facility] Comment on above: Order Comment: 402-1 Result Comment: mL/m in/1.73m2 CKD-EPI Creatinine Equation (2020) Performed By: #### L [id number], [id number], L100.0500, L501.9520, L500.4050, L500.4100 #### [facility] [address] [place], [address] Globulin (S) [Mass/Vol] 3.0 g/dL Normal 2.2-4.2 [facility] Comment on above: Order Comment: 402-1 Performed By: #### L [id number], [id number], L100.0500, L501.9520, L500.4050, L500.4100 #### [facility] Laboratory [address] [place], [address] Glucose [Mass/Vol] 102 mg/dL High 70-99 [facility] Comment on above: Order Comment: 402-1 Performed By: #### L 501.9310, L501.9985, L100.0500, L501.9520, L500.4050, L500.4100 #### [facility] Laboratory [address] [place], [address] Potassium [Moles/Vol] 4.1 mmol/L Normal 3.3-5.1 [facility] Comment on above: Order Comment: 402-1 Performed By: #### L 501.9310, L501.9985, L100.0500, L501.9520, L500.4050, L500.4100 #### [facility] Laboratory [address] [place], [address] Sodium [Moles/Vol] 143 mmol/L Normal 133-145 [facility] Comment on above: Order Comment: 402-1 Performed By: #### L 501.9310, L501.9985, L100.0500, L501.9520, L500.4050, L500.4100 #### [facility] Laboratory [address] [place], [address] T PROT 7.2 g/dL Normal 5.9-8.4 [facility] Comment on above: Order Comment: 402-1 Performed By: #### L 501.9310, L501.9985, L100.0500, L501.9520, L500.4050, L500.4100 #### [facility] Laboratory [address] [place], [address] Urea nitrogen [Mass/Vol] 13 mg/dL Normal 4-19 [facility] Comment on above: Order Comment: 402-1 Performed By: #### L 501.9310, L501.9985, L100.0500, L501.9520, L500.4050, L500.4100 #### [facility] Laboratory [address], [address] Hemoglobin A1con 03-10-2025 HbA1c (Bld) [Mass fraction] 5.7 % Normal <=5.6 [facility] Comment on above: Order Comment: 402- Result Comment: Norm al < 5.7 % Prediabetic 5.7 - 6.4 % Diabetic >or= 6.5 % Please note range changes. Performed By: #### L 501.9310, L501.9985, L100.0500, L501.9520, L500.4050, L500.4100 #### [facility] Laboratory [address] [place], [address] Lipid Profileon 03-10-2025 CHOL:HDL 3.43 Normal [facility] Comment on above: Order Comment: 402 Performed By: #### L 501.9310, L501.9985, L100.0500, L501.9520, L500.4050, L500.4100 #### [facility] Laboratory [address], [address] Cholesterol [Mass/Vol] 214 mg/dL High <=200 [facility] Comment on above: Order Comment: 402 Result Comment: Chol esterol level, Desirable <200 mg/dL Borderline high cholesterol 200-239 mg/dL High cholesterol >=240 mg/dL Recommendations of the NCEP Adult Treatment Panel for the following risk-cutoff thresholds for the [place] Vincent[place] population. Performed By: #### L 501.9310, L501.9985, L100.0500, L501.9520, L500.4050, L500.4100 #### [facility] Laboratory [address] [place], [address] Cholesterol in HDL [Mass/Vol] 62 mg/dL Normal [facility] Comment on above: Order Comment: 402-1 Result Comment: María onal Cholesterol Education Program (NCEP) guidelines: <40 mg/dL: Low HDL-cholesterol (major risk factor for CHD) >= 60 mg/dL: High HDL-cholesterol (negative risk factor for CHD) HDL-cholesterol is affected by a number of factors, e.g. smoking, exercise, hormones, sex and age. Performed By: #### L 501.9310, L501.9985, L100.0500, L501.9520, L500.4050, L500.4100 #### [facility] Laboratory [address] [place], [address] Cholesterol in LDL [Mass/Vol] 136 mg/dL Normal [facility] Comment on above: Order Comment: 402-1 Result Comment: Bord ljakdj=449-374 mg/dL Higher Umis=294 mg/dL or greater Performed By: #### L 501.9310, L501.9985, L100.0500, L501.9520, L500.4050, L500.4100 #### [facility] Laboratory [address] [place], [address] Cholesterol in VLDL [Mass/Vol] 16 mg/dL Normal 5-40 [facility] Comment on above: Order Comment: 402- Performed By: #### L 501.9310, L501.9985, L100.0500, L501.9520, L500.4050, L500.4100 #### [facility] Laboratory [address] [place], [address] Triglyceride [Mass/Vol] 78 mg/dL Normal [facility] Comment on above: Order Comment: 402-1 Result Comment: The drugs N-Acetylcysteine and Metamizole may falsely depress this assay. Normal range: <150 mg/dL Borderline High: 150-199 mg/dL High: 200-499 mg/dL Very High: >500 mg/dL Performed By: #### L 501.9310, L501.9985, L100.0500, L501.9520, L500.4050, L500.4100 #### [facility] Laboratory [address] [place], [place], [address] T4 Total, Thyroxinon 025 T4 [Mass/Vol] 5.1 ug/dL Normal 4.8-13.9 [facility] Comment on above: Order Comment: 402-1 Performed By: #### L 501.9310, L501.9985, L100.0500, L501.9520, L500.4050, L500.4100 #### [facility] Laboratory [address] [place], [address] Thyroid Stim Hormone (TSH)on 03-10-2025 TSH 4.260 uIU/mL High 0.300-4.200 [facility] Comment on above: Order Comment: 402-1 Performed By: #### L 501.9310, L501.9985, L100.0500, L501.9520, L500.4050, L500.4100 #### [facility] Laboratory [address] [place], [address] ECG 12 leadOrdered By: Fabricio Moctezuma on 02-24-2025 Heart rate 63 /min bpm [employer] Work Phone: P [place] 39 degrees [employer] Work Phone: IA Interval 158 ms [employer] Work Phone: QRS [place] -15 degrees [employer] Work Phone: QRSD Interval 68 ms [facility] Work Phone: QT Interval 396 ms [employer] Work Phone: QTC Interval 405 ms [employer] Work Phone: T Wave [place] 25 degrees [employer] Work Phone: [employer] Work Phone: ECG 12 leadon 02-24-2025 Fabricio Moctezuma MD - 02/24/2025 IMPRESSION: Sinus rhythm Ventricular premature complex Abnormal R-wave progression, early transition No previous ECG available for comparison Electronically Signed On 02-24-2025 10:47:30 EDT by Fabricio [facility] 36on 02-23-2025 36 Requested papers wer e signed by Dr Castillo and faxed to [phone]. [facility] 36 Thanks! Patient will be moving into [facility]. They need the following per daughter: -History and Physical -Face Sheet -Med List -Progress Notes -Discharge orders ( statement from the physician recommending [facility]) They could be sent by email or fax to [email or web address] F: [phone]" Can you print out today's note, today's letter, a facesheet, and a medication list? Once I sign the note/letter, then this can be faxed to [facility]. Thanks! [facility] 36 I spoke to Elizabeth and she said it was recently changed to: 25 mg at 10:00 am, 25 mg at 2:00 pm, 50 mg at 5:00 pm and 50 mg at 8:00 pm [facility] 36 Can you call and confirm the quetiapine (Seroquel) dosing with daughter Elizabeth? We have the dose as 50 mg at lunch, 50 mg at 4 pm, and 100 mg at 8 pm. I want to make sure [facility] is [facility] Follow-up visit [id number] Manas Vital margarita 1945 F Date Provider Department Center 02/23/2025 [id number] CASTILLO [facility] None Family History Problem Relation Age of Onset Dementia Maternal Grandmother Family Status - Relation Status Age at Maternal Grandmother Level of Service:83567 [place] OFFICE/OUTPATIENT ESTABLISHED HIGH MDM 40 MIN Reason for Visit and Comments: Memory Loss [66] [facility] Progress Noteon 02-23-2025 Progress Note Senior Services/Geriatrics Social History Present at visit: patient, ninfa Bui Marital status: Children: 2 children (both local) Living arrangement: alone, own condo, moved here close to daughter in 2018 from [place] >>02/17/22 same >>02/26/23 same >>10/22/23 same >>02/25/24 same- now has 24 hour live in aide >>08/25/24 same >>02/23/25 getting ready to move to jail, still currently at home with 24 hour aide Household safety problems: none >>02/17/22 none >>08/22/22 denies >>02/26/23 denies >>10/22/23 one fall outside >>02/25/24 fall >>08/25/24 none >>02/23/25 none Pets: Yes, 1 cat, no issues caring for cat >>08/22/22 gets feed regularly, cleaning litter box Guns in the home: No Wandering potential: No >>02/17/22 none >>08/22/22 denies >>02/26/23 denies >>10/22/23 denies >>02/25/24 is exit seeking, doesn't think her home is her home, family has now installed locks, security >>08/25/24 climbed out of the window, neighbor found her, now family installed alarms on window >>02/23/25 hasclimbed out a window this winter when it was -14 degrees outside. Went to a neighbors. 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 Activities: watches tv, spends time with cat >>02/17/22 just went on vacation, walks in [place], plays cards, plays piano, visiting friends >>08/22/22 outside, TV, cat sits out with neighbor, gnosticism, >>02/26/23 walks, visits with neighbors, gnosticism, kids' sports games, just came back from vacation >>10/22/23 same >>02/25/24 visits with aide, getting to physical therapy, going on walks >>08/25/24 visits with aides, goes to [facility], goes to [facility] >>02/23/25 same Exercise: walks around her house >>02/17/22 walking, weights >>08/22/22 walks around the condo or in her neighborhood >>02/26/23 walks >>10/22/23 walks >>02/25/24 walks, physical therapy >>08/25/24 walking, goint to [facility] Finances: meeting soon with Medicaid commercial real estate attorney Healthcare Power of Tube Pusher: Yes, Daughter Elizabeth Financial Power of Tube Pusher: Yes, Daughter Elizabeth Living Will: Yes Guardian:No Code Status: Full Code Primary Caregiver: daughter, Elizabeth overseeing aides, care- 24 hour aide assisting with day to day care/supervision >>08/25/24 same >>02/23/25 same Current care plan/supervision: daughter sees patient 2x/week, talks to her daily, son talks to her daily >>02/17/22 daughter comes over every day >>08/22/22 dtr sees her daily for shot, son in/out, calls >>02/26/23 same >>10/22/23 daughter sees patient every other day, son sees her sometimes >>02/25/24 has 24 hour daycare director, Xochitl who is living with her, another aide Anabell comes 10-15 hours per week to take patient places, does activities with her >>08/25/24 2 aides that come, providing 24/7 supervision, son and daughter alternate days to give aides time off >>02/23/25 same Community resources: None >>02/17/22 none >>08/22/22 no issues >>02/26/23 video monitors, gps tracker on car >>10/22/23 same >>02/25/24 aides 24 hours, video monitors, locks/alarms on doors, daughter sees patient daily >>08/25/24 24 hour aides, video monitors, alarms on doors/windows >>02/23/25 same Caregiver stressors: daughter denies stress; is concerned about the future >>02/17/22 daughter feeling less stress since they got her in a clinical trial >>02/26/23 some stress but manageable >>10/22/23 same >>02/25/24 less stress since aides are in place >>08/25/24 denies >>02/23/25 family feeling caregiver stress due to patient wandering, plan to move patient into locked memory unit Goals for care: evaluate memory, keep patient at home as long as possible, then possibly moving in with daughter As a Caregiver, What Matters Most to You: Planning for future needs According to daughter, patient more repetative during last few years, some suspicious behavior more recently, gets overwhelmed with new information >>02/17/22 Daughter has helped patient get into clinical trial for Alzheimer's. Patient is doing a little better in her function since starting the trial. Daughter has gotten an alarmed pill dispenser for patient; she is doing well with using that. No other resources given today. >>02/26/23 Patient remaining stable in function since last visit. Daughter getting patient into new clinical trial starting in March. Patient still very active. Daughter has added video monitors, GPS trackers on patient's car. Daughter also created a big bulletin board with photos/phone numbers of family members. SW suggested that daughter check out [email or web address]. [employer] Information to check out any other prod (more content not included)... Normal [facility] Progress Note Review of Systems Constitutional: Negative for appetite change, fatigue and unexpected weight change. HENT: Negative for dental problem, hearing loss and trouble swallowing. Eyes: Negative for visual disturbance. Gastrointestinal: Negative for constipation and diarrhea. Genitourinary: Negative for difficulty urinating and dysuria. Musculoskeletal: Negative for arthralgias, back pain and gait problem. Neurological: Negative for tremors, speech difficulty and weakness. Psychiatric/Behavioral: Positive for agitation, confusion, dysphoric mood and sleep disturbance. Negative for hallucinations. The patient is nervous/anxious. Normal [facility] Progress Note [facility] [address] [facility] [address] Dept: [phone] Dept Loc: [phone] Visit type: [facility] Follow Up Visit Reason for Visit: Memory Loss Visit Date: 02/23/2025 Assessment and Plan 1. 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 Irregular heart rate - ECG 12 lead 3. Primary hypertension Alzheimer's Disease -Moderate-Severe stage of Alzheimer's Disease complicated by evening agitation -Continue donepezil 10 mg daily -Continue memantine 10 mg BID -Continue zoloft 100 mg daily for mood -She is on seroquel (see below for doing) and ambien 10 mg nightly PRN. These are prescribed and managed by [facility]y at [facility] -We did call daughter Elizabeth to confirm seroquel dosing. Neurology manages. She reported the seroquel is currently dosed at: 25 mg at 10:00 am, 25 mg at 2:00 pm, 50 mg at 5:00 pm and 50 mg at 8:00 pm -Plan is for patient to move into [facility]. I agree that she is appropriate for intermediate care placement at this time due to Alzheimer's Disease. Needs 24/ supervision due wandering risk. Needs medication administration by a caregiver. Needs assistance with ADLs (bathing, dressing, toileting). Hypertension: -Controlled. On metoprolol, which PCP manages. Irregular Heart Rate: -Did note irregular heart rate on exam. Sounded like occasional skipped beats but will check EKG to confirm this Follow up in about 6 months (around 08/25/2025). Subjective HPI: Cyndee Vital is a 79 y.o. female with past medical history of Alzheimer's Disease, hypertension, depression who presents to the [facility] for a follow-up visit. The patient is known to me. Chart Review: First seen in October 2021. MOCA . Diagnosed with mild Alzheimer's Disease -August 2022. Continued aricept. Continue zoloft to help with mood. Having some issues with hallucinations. Discussed that one day she may need antipsychotic to help manage them. No ADL issues. Still driving. MOCA was a -February 2023: She is enrolled in a clinical trial for Alzheimer's Disease. Subjectively, cognition stable. MOCA did decline to . MIS 01/21 Zoloft increased to 100 mg daily to help with anxiety/skin picking. -October 2023: MOCA score declined to 10/08. More forgetful and needing more cueing. Referred to Occupational Therapy for driving evaluation. Started back on Vitamin D. Continued on aricept, namenda, and zoloft. -Did receive a message that patient no longer driving. -February 2024: MOCA 06/07. The physicians at her research study had placed her on seroquel for behavioral disturbance. Now with 01/06 care at home -Last seen in August 2024: Behaviors/Mood stable on the seroquel prescribed by her [facility]. They had prescribed ambien for sleep as well. MMSE 11/07 Received [employer] message from the family: Patient will be moving into a memory care unit at [facility]. Will do the H and P for admission at today's appointment History obtained from caregiver(s): Son Hao -Her cognition has continued to decline. Communication skills have really declined. Doesn't comprehend what family says - even instructions like "wash your hands". -Unsteady on her feet. Not using a cane or a walker. No falls recently. -Mood: Does get mad at times. Can be "more mean". Gets more agitation in the evenings. Will be restless and say she "wants to go home". Occasionally she has tried to become physically combative with her daughter in the evenings (when she "wants to escape"). 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 -Sleep: Better now. -Appetite: Still eats well. Does play with her food a lot. -Hallucinations: No -No physical health issues. -Goes to on walks with her caregiver. History obtained from patient: -Things going well. -Memory: "pretty good". No trouble noticed. -Mood: Doing well. Doesn't feel down or hopeless. No stress or worry. -Sleep: "I like to go to bed". -Appetite: Good. -Physical health: Good. No aches or pains. No fevers or nausea. Stomach feels good. Breathing feels fine. -Vision: wears glasses. She says: "I see you". -Hallucinations: none. -Hearing: good. -Walking: good. Reviewed progress notes completed by ALFREDO RUEDA) and social work. No Known Allergies Current Outpatient Medications Medication Sig Dispense Refill donepezil (Aricept) 10 MG tablet Take 1 tablet (10 mg) by mouth Nightly. 90 tablet 1 Folic Acid (FOLATE PO) Take by mouth. Loperamide HCl (IMODIUM PO) Take 2 mg by mouth Daily as needed (diarrhea). PRN memantine (Namenda) 10 MG tablet Take 10 mg by mouth 2 times daily. metoprolol succinate XL (Toprol-XL) 25 MG 24 hr tablet Take 25 mg by mouth 2 times daily. Pyridoxine HCl (VITAMIN B-6 PO) Take by mouth. QUEtiapine (SEROquel) 50 MG tablet Take 50 mg by mouth See administration (more content not included)... Normal [facility] 36on 01-24-2025 36 Request for refill received from interface Last appointment: 08/25/2024 Next appointment: 02/23/2025 Pharmacy confirmed: [x] Yes [] No Normal [facility] NM PET/CT BRAIN PLAQUE IMAGI NGon 09-29-2024 NM PET/CT BRAIN PLAQUE IMAGING * * *Final Report* * * DATE OF EXAM: Sep 29 2024 3:39PM VERONIQUE 0104 - NM PET/CT BRAIN PLAQUE IMAGING / PROCEDURE REASON: Examination of participant or control in clinical research * * * * Physician Interpretation * * * * EXAMINATION: NM PET/CT BRAIN PLAQUE IMAGING HISTORY: Research scan. Examination of participant or control in clinical research TECHNIQUE: Brain amyloid PET scan. Radiotracer: [id number] Dose (mCi): 10.8 Route: Intravenous Patient rested in a dim quiet room for approximately 50 minutes following tracer injection prior to imaging. This examination was performed as a combined PET/CT scan. The CT scan was obtained for attenuation correction purposes only. CT Radiation dose: Integrated Dose-length product (DLP) for this visit: 80 mGy*cm. CT Dose Reduction Employed: Low dose (attenuation protocol) technique. COMPARISON: None. RESULT: Technically adequate brain amyloid PET scan for research purposes. There are no significant incidental findings. Speech Language Pathology Assistant: TOSIN Transcribe Date/Time: Oct 03 2024 8:53A Dictated by : CARIE MELGAR MD This examination was interpreted and the report reviewed and electronically signed by: CARIE MELGAR MD on Oct 03 2024 8:56AM EST [id number] Normal [facility] CBC W/Diff, Automatedon 11-1 Absolute Lymph 1.36 X10 3/uL Normal 0.83-4.51 [facility] Comment on above: Performed By: #### L 500.4100, L500.4050, L100.0100 #### [facility] Laboratory [address] [place], [address] Absolute Neut 4.0 X10 3/uL Normal 2.0-7.7 [facility] Comment on above: Performed By: #### L 500.4100, L500.4050, L100.0100 #### [facility] Laboratory [address] [place], [address] Basophils/100 WBC (Bld) 0.5 % Normal 0-1 [facility] Comment on above: Performed By: #### L 500.4100, L500.4050, L100.0100 #### [facility] Laboratory [address] [place], [address] Eosinophils/100 WBC (Bld) 2.0 % Normal 0-5 [facility] Comment on above: Performed By: #### L 500.4100, L500.4050, L100.0100 #### [facility] Laboratory [address] [place], [address] Erythrocyte distribution width (RBC) [Ratio] 12.9 % Normal 11.6-14.6 [facility] Comment on above: Performed By: #### L 500.4100, L500.4050, L100.0100 #### [facility] Laboratory [address] [place], [address] Hematocrit (Bld) [Volume fraction] 39.3 % Normal 37-47 [facility] Comment on above: Performed By: #### L 500.4100, L500.4050, L100.0100 #### [facility] Laboratory [address] [place], [address] Hemoglobin (Bld) [Mass/Vol] 13.1 g/dL Normal 12.0-15.0 [facility] Comment on above: Performed By: #### L 500.4100, L500.4050, L100.0100 #### [facility] Laboratory [address] [place], [address] IG% 0.700 Normal 0.0-0.9 [facility] Comment on above: Result Comment: IG% - Immature Granulocytes (promyelocytes, myelocytes and metamyelocytes) > 1% indicates that a LEFT SHIFT is Present. Performed By: #### L 500.4100, L500.4050, L100.0100 #### [facility] Laboratory [address], [address] Lymphocytes/100 WBC (Bld) 22.9 % Normal 19-41 [facility] Comment on above: Performed By: #### L 500.4100, L500.4050, L100.0100 #### [facility] Laboratory [address] [place], [address] MCH (RBC) [Entitic mass] 31.2 pg Normal 27.0-32.0 [facility] Comment on above: Performed By: #### L 500.4100, L500.4050, L100.0100 #### [facility] Laboratory [address] [place], [address] MCHC (RBC) [Mass/Vol] 33.3 g/dL Normal 32-36 [facility] Comment on above: Performed By: #### L 500.4100, L500.4050, L100.0100 #### [facility] Laboratory [address] [place], [address] MCV (RBC) [Entitic vol] 93.6 fL Normal 81-99 [facility] Comment on above: Performed By: #### L 500.4100, L500.4050, L100.0100 #### [facility] Laboratory [address] [place], [address] Monocytes/100 WBC (Bld) 7.4 % Normal 0-10 [facility] Comment on above: Performed By: #### L 500.4100, L500.4050, L100.0100 #### [facility] Laboratory [address] [place], [address] Neutrophils/100 WBC (Bld) 66.5 % Normal 47-70 [facility] Comment on above: Performed By: #### L 500.4100, L500.4050, L100.0100 #### [facility] Laboratory [address] [place], [address] Nucleated RBC (Bld) [#/Vol] 0 10*3/uL Normal 0-5 [facility] Comment on above: Performed By: #### L 500.4100, L500.4050, L100.0100 #### [facility] Laboratory [address] [place], [address] Platelet mean volume (Bld) [Entitic vol] 10.5 fL Normal 6.2-12.0 [facility] Comment on above: Performed By: #### L 500.4100, L500.4050, L100.0100 #### [facility] [address] [place], [address] Platelets (Bld) [#/Vol] 255 10*3/uL Normal 150-450 [facility] Comment on above: Performed By: #### L 500.4100, L500.4050, L100.0100 #### [facility] [address] [place], [address] RBC (Bld) [#/Vol] 4.20 10*6/uL Normal 4.2-5.4 [facility] Comment on above: Performed By: #### L 500.4100, L500.4050, L100.0100 #### [facility] [address] [place], [address] RDW SD 44.2 fl High 35.1-43.9 [facility] Comment on above: Performed By: #### L 500.4100, L500.4050, L100.0100 #### [facility] [address] [place], [address] WBC (Bld) [#/Vol] 6.0 10*3/uL Normal 4.4-11.0 [facility] Comment on above: Performed By: #### L 500.4100, L500.4050, L100.0100 #### [facility] [address] [place], [address] Comprehensive Metabolic [facility] 09-21-2024 Albumin [Mass/Vol] 3.7 g/dL Normal 3.2-5.0 [facility] Comment on above: Performed By: #### L 500.4100, L500.4050, L100.0100 #### [facility] [address] [place], [address] Albumin/Globulin [Mass ratio] 1.0 {ratio} Normal 0.9-2.4 [facility] Comment on above: Performed By: #### L 500.4100, L500.4050, L100.0100 #### [facility] [address] [place], [address] ALK P 86 U/L Normal 45-117 [facility] Comment on above: Performed By: #### L 500.4100, L500.4050, L100.0100 #### [facility] [address] [place], [address] ALT [Catalytic activity/Vol] 18 U/L Normal 13-56 [facility] Comment on above: Performed By: #### L 500.4100, L500.4050, L100.0100 #### [facility] [address] [place], [address] AST [Catalytic activity/Vol] 17 U/L Normal 15-37 [facility] Comment on above: Performed By: #### L 500.4100, L500.4050, L100.0100 #### [facility] [address] [place], [address] Bilirubin [Mass/Vol] 0.30 mg/dL Normal 0.20-1.00 [facility] Comment on above: Result Comment: For patients on eltrombopag therapy, use of Dimension [place] TBIL is not recommended. Performed By: #### L 500.4100, L500.4050, L100.0100 #### [facility] [address] [place], [address] BUN/CRE 14.4 RATIO Normal 10-20 [facility] Comment on above: Performed By: #### L 500.4100, L500.4050, L100.0100 #### [facility] [address] [place], [address] CA,Total 9.5 mg/dL Normal 8.5-10.1 [facility] Comment on above: Performed By: #### L 500.4100, L500.4050, L100.0100 #### [facility] [address] [place], [address] Chloride [Moles/Vol] 107 mmol/L Normal 98-107 [facility] Comment on above: Performed By: #### L 500.4100, L500.4050, L100.0100 #### [facility] [address] [place], [address] CO2 [Moles/Vol] 29.0 mmol/L Normal 21.0-32.0 [facility] Comment on above: Performed By: #### L 500.4100, L500.4050, L100.0100 #### [facility] [address] [place], [address] Creatinine [Mass/Vol] 1.04 mg/dL High 0.55-1.02 [facility] Comment on above: Result Comment: The validity of the calculated GFR GFRAA in patients over 70 years has not been determined. Clinical correlation is essential. Performed By: #### L 500.4100, L500.4050, L100.0100 #### [facility] [address] [place], [address] EST GFR - AA 66 mL/min Normal >60 [facility] Comment on above: Result Comment: Afri can Vincentian GFR Calc Performed By: #### L 500.4100, L500.4050, L100.0100 #### [facility] [address] [place], [address] GAP 4 Low 5-15 [facility] Comment on above: Performed By: #### L 500.4100, L500.4050, L100.0100 #### [facility] [address] [place], [address] GFR/1.73 sq M.predicted among non-blacks MDRD (S/P/Bld) [Vol rate/Area] 54 mL/min/{1.73_m2} Low >60 [facility] Comment on above: Result Comment: Non- GFR Calc Performed By: #### L 500.4100, L500.4050, L100.0100 #### [facility] [address] [place], [address] Globulin (S) [Mass/Vol] 3.6 g/dL Normal 2.2-4.2 [facility] Comment on above: Performed By: #### L 500.4100, L500.4050, L100.0100 #### [facility] [address] [place], [address] Glucose [Mass/Vol] 135 mg/dL High 74-106 [facility] Comment on above: Result Comment: Fast ing Glucose result greater than or equal to 126 mg/dL suggests DIABETES MELLITUS per A.D.A. criteria. Performed By: #### L 500.4100, L500.4050, L100.0100 #### [facility] [address] [place], [address] Potassium [Moles/Vol] 3.5 mmol/L Normal 3.5-5.1 [facility] Comment on above: Performed By: #### L 500.4100, L500.4050, L100.0100 #### [facility] [address] [place], [address] Sodium [Moles/Vol] 141 mmol/L Normal 136-145 [facility] Comment on above: Performed By: #### L 500.4100, L500.4050, L100.0100 #### [facility] [address] [place], [address] T PROT 7.3 g/dL Normal 6.4-8.2 [facility] Comment on above: Performed By: #### L 500.4100, L500.4050, L100.0100 #### [facility] [address] [place], [address] Urea nitrogen [Mass/Vol] 15 mg/dL Normal 7-18 [facility] Comment on above: Performed By: #### L 500.4100, L500.4050, L100.0100 #### [facility] [address] [place], [address] Lipid Profileon 09-21-2024 Cholesterol [Mass/Vol] 205 mg/dL High 200 [facility] Comment on above: Result Comment: <200 mg/dL Desirable 200-240 mg/dL Borderline >240 mg/dL High Risk Performed By: #### L 500.4100, L500.4050, L100.0100 #### [facility] [address] [place], [address] Cholesterol in HDL [Mass/Vol] 59 mg/dL Normal [facility] Comment on above: Result Comment: The drugs N-Acetylcysteine and Metamizole may falsely depress this assay. Reference Range HDL <40 mg/dL Low HDL Cholesterol HDL >or= 60 mg/dL High HDL Cholesterol Performed By: #### L 500.4100, L500.4050, L100.0100 #### [facility] [address] [place], [address] Cholesterol in LDL [Mass/Vol] 114 mg/dL Normal 0-130 [facility] Comment on above: Performed By: #### L 500.4100, L500.4050, L100.0100 #### [facility] [address] [place], [address] Cholesterol in VLDL [Mass/Vol] 32 mg/dL Normal 5-40 [facility] Comment on above: Performed By: #### L 500.4100, L500.4050, L100.0100 #### [facility] [address] [place], [address] Triglyceride [Mass/Vol] 162 mg/dL Normal [facility] Comment on above: Result Comment: The drugs N-Acetylcysteine and Metamizole may falsely depress this assay. Serum Triglycerides Reference Interval Normal <150 mg/dL Borderline high 150 - 199 mg/dL High 200 - 499 mg/dL Very High > or = 500 mg/dL Performed By: #### L 500.4100, L500.4050, L100.0100 #### [facility] [address] [place], [address] [facility] 09-19-2024 YVONNE Telephone ([facility]) QUANCYNDEE ([id number]) 1945 F Date Time Provider Department 09/19/24 AMILCAR BRADFORD MD During your visit today, we recorded the following information about you: Abdon Moctezuma, RT(R) 09/19/2024 10:13 AM Signed CYNDEE VITAL [id number] DOS: 09/29/24 PET INJ: 1430 PET 4: 1530 APPT NOTES: DO NOT SUBMIT AUTH TO INSURANCE, BILLED TO [employer] [id number] PET BRAIN AMYVID [employer]M PET 2 ONLY NO CHARGE FOR DOSE Allergies As of Date: 09/19/2024 (No Known Allergies) Date Reviewed: 08/30/2024 Reviewed by: Panfilo Sy RN - Fully Assessed Reason for Visit: Returning Patient's Call [[phone]] Prescriptions as of 09/19/2024 - donepezil (ARICEPT) 10 mg tablet TAKE 1 TABLET BY MOUTH NIGHTLY - metoprolol succinate ER (TOPROL XL) 25 mg 24 hr tablet Take 1 tablet by mouth twice daily. - multivit-min/ferrous fumarate (MULTI VITAMIN ORAL) Take by mouth. - aspirin, enteric coated (ASPIRIN, ENTERIC COATED) 81 mg EC tablet Take 1 tablet by mouth once daily. - atorvastatin (LIPITOR) 40 mg tablet Take 1 tablet by mouth daily at bedtime. Problem List As Of Date 09/19/2024 Noted Resolved Chest pain [R07.9] 10/06/2019 10/07/2019 Hypokalemia [E87.6] 10/06/2019 10/07/2019 Pure hypercholesterolemia [E78.00] 10/14/2019 PVC (premature ventricular contraction) [I49.3] 01/25/2021 PSVT (paroxysmal supraventricular tachycardia) *01/25/2021 Abdominal pain [R10.9] 01/03/2024 Back pain [M54.9] 01/03/2024 Examination of participant or control in clinic*04/13/2024 Encounter Status:Closed by ABDON MOCTEZUMA on 09/19/24 Normal [facility] 08-30-2024 ALLIED HEALTH HNO ID: [id number] Author: LYDIA COSTA RT(Colette) Service: Radiology Author Type: Technologist Type: Allied Health Filed: 08/30/2024 12:40 Note Text: Radiology Service Progress Note DATE OF SERVICE: August 30, 2024 TIME: 12:40 PM PATIENT IDENTITY VERIFICATION COMPLETED USING TWO (2) STANDARD IDENTIFIERS: Name and Date of confirmed by patient verbally and Name and Date of confirmed by identification band. FALL SCREENING: Has the patient had 2 falls in the last year or 1 fall with injury or currently using an Ambulatory Assistive Device (Walker, Cane, Wheelchair, Crutches, etc.)? Emergency Room Patient: Screened in ED PATIENT GENDER DATA: Female. status: : No status: NO. PATIENT RELEVANT IMPLANT DATA REVIEWED: Yes PATIENT PRESENTS WITH AN IMPLANTABLE OR ATTACHED STRATEGIC MARKETING LEADER: No ALLERGIES: Reviewed and unchanged CONTRAST ALLERGY: NO. EXAM: CT -CONTRAST INDUCED NEPHROPATHY RISK FACTORS: Patient age > 60 years CREATININE: Creatinine Date Value Ref Range Status 08/30/2024 1.13 (H) 0.58 - 0.96 mg/dL Final 01/13/2024 0.85 0.58 - 0.96 mg/dL Final 01/03/2024 0.81 0.58 - 0.96 mg/dL Final Estimated Glomerular Filtration Rate Date Value Ref Range Status 08/30/2024 50 (L) >=60 mL/min/1.73m? Final Comment: Estimated Glomerular Filtration Rate (eGFR) is calculated using the 2020 CKD-EPI creatinine equation. This equation utilizes serum creatinine, sex, and age as parameters. The creatinine assay has traceable calibration to isotope dilution-mass spectrometry. Refer to KDIGO guidelines for clinical interpretation. In patients with unstable renal function, e.g. those with acute kidney injury, the eGFR may not accurately reflect actual GFR. eGFR- Date Value Ref Range Status 10/07/2019 >60 Final P.O.C.T. RESULTS: POC done: Yes, See Lab Tab August 30, 2024 TREATMENT: N/A PERIPHERAL IV DATA: Inpatient - refer to LDA documentation RADIOLOGY DEPARTMENT: CT; Exam(s) Completed: Abdomen/Pelvis SIGNATURE: RT Cheng(R) PATIENT NAME: Cyndee Vital DATE: August 30, 2024 TIME: 12:40 PM Normal [facility] CBC W Auto Differential pane l (Bld)on 08-30-2024 Basophils (Bld) [#/Vol] 0.03 10*3/uL Normal <0.11 [facility] Comment on above: Order Comment: Speci men Type: BLOOD SPECIMENOrdering Facility: [facility] Address: [address] [place] [address] Performed By: #### 5 7021-8 ####[facility] [id number] [address] [place] Basophils/100 WBC (Bld) 0.3 % Normal [facility] Comment on above: Order Comment: Speci men Type: BLOOD SPECIMENOrdering Facility: [facility] Address: [address] [place] [address] Performed By: #### 5 7021-8 ####[facility] [id number] [address] [place] Differential cell count method Nom (Bld) Auto Normal [facility] Comment on above: Order Comment: Speci men Type: BLOOD SPECIMENOrdering Facility: [facility] Address: [address] [place] [address] Performed By: #### 5 7021-8 ####[facility] [id number] [address] [place] Eosinophils (Bld) [#/Vol] 0.07 10*3/uL Normal <0.46 [facility] Comment on above: Order Comment: Speci men Type: BLOOD SPECIMENOrdering Facility: [facility] Address: [address] [place] [address] Performed By: #### 5 7021-8 ####[facility] [id number] [address] [place] Eosinophils/100 WBC (Bld) 0.8 % Normal [facility] Comment on above: Order Comment: Speci men Type: BLOOD SPECIMENOrdering Facility: [facility] Address: [address] [place] [address] Performed By: #### 5 7021-8 ####[facility]ORYCL[facility] [id number] [place] [address] [place] Erythrocyte distribution width (RBC) [Ratio] 12.7 % Normal 11.5-15.0 [facility] Comment on above: Order Comment: Speci men Type: BLOOD SPECIMENOrdering Facility: [facility] Address: [address] [place] [address] Performed By: #### 5 7021-8 ####[facility]ORYCL[facility] [id number] [place] [address] [place] Hematocrit (Bld) [Volume fraction] 40.3 % Normal 36.0-46.0 [facility] Comment on above: Order Comment: Speci men Type: BLOOD SPECIMENOrdering Facility: [facility] Address: [address] [place] [address] Performed By: #### 5 7021-8 ####[facility]ORY[facility] [id number] [place] [address] [place] Hemoglobin (Bld) [Mass/Vol] 13.6 g/dL Normal 11.5-15.5 [facility] Comment on above: Order Comment: Speci men Type: BLOOD SPECIMENOrdering Facility: [facility] Address: [address] [place] [address] Performed By: #### 5 7021-8 ####[facility]ATORYCLIA [id number] [place] [address] [place] Immature granulocytes (Bld) [#/Vol] 10*3/uL Normal <0.10 [facility] Comment on above: Order Comment: Speci men Type: BLOOD SPECIMENOrdering Facility: [facility] Address: [address] [place] [address] Performed By: #### 5 7021-8 ####[facility]ORYCL[facility] [id number] [address] [place] Immature granulocytes/100 WBC (Bld) 0.2 % Normal [facility] Comment on above: Order Comment: Speci men Type: BLOOD SPECIMENOrdering Facility: [facility] Address: [address] [place] [address] Performed By: #### 5 7021-8 ####[facility]ORYCL[facility] [id number] [address] Lymphocytes (Bld) [#/Vol] 1.87 10*3/uL Normal 1.00-4.00 [facility] Comment on above: Order Comment: Speci men Type: BLOOD SPECIMENOrdering Facility: [facility] Address: [address] [place] [address] Performed By: #### 5 7021-8 ####[facility]ORYCLIA [id number] [address] Lymphocytes/100 WBC (Bld) 21.5 % Normal [facility] Comment on above: Order Comment: Speci men Type: BLOOD SPECIMENOrdering Facility: [facility] Address: [address] [place] [address] Performed By: #### 5 7021-8 ####[facility]ORYCLIA [id number] [address] MCH (RBC) [Entitic mass] 31.6 pg Normal 26.0-34.0 [facility] Comment on above: Order Comment: Speci men Type: BLOOD SPECIMENOrdering Facility: [facility] Address: [address] [place] [address] Performed By: #### 5 7021-8 ####[facility]ATORYCLIA [id number] [address] MCHC (RBC) [Mass/Vol] 33.7 g/dL Normal 30.5-36.0 [facility] Comment on above: Order Comment: Speci men Type: BLOOD SPECIMENOrdering Facility: [facility] Address: [address] [place] [address] Performed By: #### 5 7021-8 ####[facility]ATORYCLIA [id number] [address] MCV (RBC) [Entitic vol] 93.7 fL Normal 80.0-100.0 [facility] Comment on above: Order Comment: Speci men Type: BLOOD SPECIMENOrdering Facility: [facility] Address: [address] [place] [address] Performed By: #### 5 7021-8 ####[facility]ORATORYCLIA [id number] [place] [address] [place] Monocytes (Bld) [#/Vol] 0.91 10*3/uL High <0.87 [facility] Comment on above: Order Comment: Speci men Type: BLOOD SPECIMENOrdering Facility: [facility] Address: [address] [place] [address] Performed By: #### 5 7021-8 ####[facility]ATORYCLIA [id number] [address] [place] Monocytes/100 WBC (Bld) 10.5 % Normal [facility] Comment on above: Order Comment: Speci men Type: BLOOD SPECIMENOrdering Facility: [facility] Address: [address] [place] [address] Performed By: #### 5 7021-8 ####[facility]ORATORYCLIA [id number] [place] [address] [place] Neutrophils (Bld) [#/Vol] 5.79 10*3/uL Normal 1.45-7.50 [facility] Comment on above: Order Comment: Speci men Type: BLOOD SPECIMENOrdering Facility: [facility] Address: [address] [place] [address] Performed By: #### 5 7021-8 ####[facility]ATORYCLIA [id number] [address] [place] Neutrophils/100 WBC (Bld) 66.7 % Normal [facility] Comment on above: Order Comment: Speci men Type: BLOOD SPECIMENOrdering Facility: [facility] Address: [address] [place] [address] Performed By: #### 5 7021-8 ####[facility]ORATORYCLIA [id number] [place] [address] [place] [facility] [place] Nucleated RBC (Bld) [#/Vol] 10*3/uL Normal <0.01 [facility] Comment on above: Order Comment: Speci men Type: BLOOD SPECIMENOrdering Facility: [facility] Address: [address] [place] [address] Performed By: #### 5 7021-8 ####[facility]ORATORYCLIA [id number] [place] [address] [place] Nucleated RBC/100 WBC (Bld) [Ratio] 0.0 /100 WBC Normal [facility] Comment on above: Order Comment: Speci men Type: BLOOD SPECIMENOrdering Facility: [facility] Address: [address] [place] [address] Performed By: #### 5 7021-8 ####[facility]ORATORYCLIA [id number] [place] [address] [place] Platelet mean volume (Bld) [Entitic vol] 9.5 fL Normal 9.0-12.7 [facility] Comment on above: Order Comment: Speci men Type: BLOOD SPECIMENOrdering Facility: [facility] Address: [address] [place] [address] Performed By: #### 5 7021-8 ####[facility]ORATORYCLIA [id number] [place] [address] [place] Platelets (Bld) [#/Vol] 229 10*3/uL Normal 150-400 [facility] Comment on above: Order Comment: Speci men Type: BLOOD SPECIMENOrdering Facility: [facility] Address: [address] [place] [address] Performed By: #### 5 7021-8 ####[facility]ORATORYCLIA [id number] [place] [address] [place] RBC (Bld) [#/Vol] 4.30 10*6/uL Normal 3.90-5.20 [facility] Comment on above: Order Comment: Speci men Type: BLOOD SPECIMENOrdering Facility: [facility] Address: [address] [place] [address] Performed By: #### 5 7021-8 ####[facility]ORATORYCLIA [id number] [place] [address] [place] WBC (Bld) [#/Vol] 8.69 10*3/uL Normal 3.70-11.00 [facility] Comment on above: Order Comment: Speci men Type: BLOOD SPECIMENOrdering Facility: [facility] Address: [address] [place] [id number] Performed By: #### 5 7021-8 ####[facility] LABORATORYCLIA [id number] [place] [address] [place] [address] ABD/PEL W IVCONon 10-22-[address] ABD/PEL W IVCON * * *Final Report* * * DATE OF EXAM: Aug 30 2024 12:40PM [facility] 0530 - CT ABD/PEL W IVCON / PROCEDURE REASON: LLQ abdominal pain * * * * Physician Interpretation * * * * EXAMINATION: CT ABDOMEN AND PELVIS WITH IV CONTRAST CLINICAL HISTORY: Left lower quadrant pain TECHNIQUE: CT of the abdomen and pelvis was performed using standard technique, scanning from just above the dome of the diaphragm to the symphysis pubis. MQ: CTAP_3 Contrast: IV: 100 ml of Omnipaque 350 : ml of CT Radiation dose: Integrated Dose-length product (DLP) for this visit = 226 mGy*cm. CT Dose Reduction Employed: Automated exposure control(AEC) and iterative recon COMPARISON: 01/03/2024. RESULT: Liver: Right hepatic lobe cysts. No developing or suspicious hepatic lesion Biliary: No bile duct dilation. The gallbladder is unremarkable Spleen: No mass. No splenomegaly. Pancreas: No mass or duct dilation. Adrenals: No mass. Kidneys: 1 cm left renal cyst. No suspicious renal lesion or gross obstructive uropathy GI tract: No dilation or wall thickening. The appendix appears normal. Diverticulosis of the colon without diverticulitis Lymph nodes: No abdominal or pelvic lymphadenopathy. Mesentery/Peritoneum: No ascites or mass. Retroperitoneum: No mass. Vasculature: - Abdominal aorta and iliac arteries: No aneurysm. - Celiac and SMA: Patent without stenosis. - Portal venous system (SMV, splenic vein, portal vein and branches): Patent. - Hepatic veins: Patent. Pelvis: No mass, ascites or fluid collection. Bones/Soft Tissues: Degenerative changes. Lower thorax: Unremarkable. Localizer images: No additional findings. IMPRESSION: Diverticulosis, without evidence of diverticulitis No evidence of acute process in the abdomen or pelvis Speech Language Pathology Assistant: TOSIN Transcribe Date/Time: Aug 30 2024 1:18P Dictated by : CATY ROJAS MD This examination was interpreted and the report reviewed and electronically signed by: CATY ROJAS MD on Aug 30 2024 1:25PM EST [id number] Normal [facility] Comprehensive metabolic 2000 panelon 08-30-2024 Albumin [Mass/Vol] 4.3 g/dL Normal 3.9-4.9 [facility] Comment on above: Order Comment: Speci men Type: BLOOD SPECIMENOrdering Facility: [facility] Address: [address] [place] [address] Performed By: #### 2 4323-8 ####[facility] LABORATORYCLIA [id number] [place] [address] [place] ALP [Catalytic activity/Vol] 73 U/L Normal 34-123 [facility] Comment on above: Order Comment: Speci men Type: BLOOD SPECIMENOrdering Facility: [facility] Address: [address] [place] [address] Performed By: #### 2 4323-8 ####[facility]ORATORYCLIA [id number] [address] [place] ALT [Catalytic activity/Vol] 13 U/L Normal 7-38 [facility] Comment on above: Order Comment: Speci men Type: BLOOD SPECIMENOrdering Facility: [facility] Address: [address] [place] [address] Performed By: #### 2 4323-8 ####[facility]ORATORYCLIA [id number] [place] [address] [place] [facility] Anion gap [Moles/Vol] 10 mmol/L Normal 8-15 [facility] Comment on above: Order Comment: Speci men Type: BLOOD SPECIMENOrdering Facility: [facility] Address: [address] [place] [address] Performed By: #### 2 4323-8 ####[facility] LABORATORYCLIA [id number] [place] [address] [place] AST [Catalytic activity/Vol] 19 U/L Normal 13-35 [facility] Comment on above: Order Comment: Speci men Type: BLOOD SPECIMENOrdering Facility: [facility] Address: [address] [place] [address] Performed By: #### 2 4323-8 ####[facility] LABORATORYCLIA [id number] [place] [address] [place] [place] Bilirubin [Mass/Vol] 0.8 mg/dL Normal 0.2-1.3 [facility] Comment on above: Order Comment: Speci men Type: BLOOD SPECIMENOrdering Facility: [facility] Address: [address] [place] [address] Performed By: #### 2 4323-8 ####[facility] LABORATORYCLIA [id number] [place] [address] [place] Calcium [Mass/Vol] 9.4 mg/dL Normal 8.5-10.2 [facility] Comment on above: Order Comment: Speci men Type: BLOOD SPECIMENOrdering Facility: [facility] Address: [address] [place] [address] Performed By: #### 2 4323-8 ####DIEGO LABORATORYCLIA [id number] [place] [address] [place] Chloride [Moles/Vol] 103 mmol/L Normal 98-107 [facility] Comment on above: Order Comment: Speci men Type: BLOOD SPECIMENOrdering Facility: [facility] Address: [address] [place] [address] Performed By: #### 2 4323-8 ####DIEGO LABORATORYCLIA [id number] [place] [address] [place] CO2 [Moles/Vol] 26 mmol/L Normal 22-30 [facility] Comment on above: Order Comment: Speci men Type: BLOOD SPECIMENOrdering Facility: [facility] Address: [address] [place] [address] Performed By: #### 2 4323-8 ####DIEGO LABORATORYCLIA [id number] [place] [address] [place] Creatinine [Mass/Vol] 1.13 mg/dL High 0.58-0.96 [facility] Comment on above: Order Comment: Speci men Type: BLOOD SPECIMENOrdering Facility: [facility] Address: [address] [place] [address] Performed By: #### 2 4323-8 ####[place] [place] LABORATORYCLIA [id number] [place] [address] [place] Creatinine and Glomerular filtration rate.predicted panel (S/P/Bld) 50 mL/min/1.73m??? Low >=60 [facility] Comment on above: Order Comment: Jessica shearer Type: BLOOD SPECIMENOrdering Facility: [facility] Address: [address] [place] [address] Result Comment: Tanja mated Glomerular Filtration Rate (eGFR) is calculated using the 2020 CKD-EPI creatinine equation. This equation utilizes serum creatinine, sex, and age as parameters. The creatinine assay has traceable calibration to isotope dilution-mass spectrometry. Refer to KDIGO guidelines for clinical interpretation. In patients with unstable renal function, e.g. those with acute kidney injury, the eGFR may not accurately reflect actual GFR. Performed By: #### 2 4323-8 ####[facility] [place] LABORATORYCLIA [id number] [place] [id number] [place] Glucose [Mass/Vol] 113 mg/dL High 74-99 [facility] Comment on above: Order Comment: Jessica shearer Type: BLOOD SPECIMENOrdering Facility: [facility] Address: [address] [place] [address] Result Comment: The [place] Diabetes Association (ADA) provides guidance for cutoff values for fasting glucose and random glucose. The ADA defines fasting as no caloric intake for at least 8 hours. Fasting plasma glucose results between 100 to 125 mg/dL indicate increased risk for diabetes (prediabetes). Fasting plasma glucose results greater than or equal to 126 mg/dL meet the criteria for diagnosis of diabetes. In the absence of unequivocal hyperglycemia, results should be confirmed by repeat testing. In a patient with classic symptoms of hyperglycemia or hyperglycemic crisis, random plasma glucose results greater than or equal to 200 mg/dL meet the criteria for diagnosis of diabetes. Reference: Standards of Medical Care in Diabetes 2016, [place] Diabetes Association. Diabetes Care. 2016.39(Suppl 1). Performed By: #### 2 4323-8 ####[facility] LABORATORYCLIA [id number] [place] [address] [place] Potassium [Moles/Vol] 4.4 mmol/L Normal 3.7-5.1 [facility] Comment on above: Order Comment: Speci men Type: BLOOD SPECIMENOrdering Facility: [facility] Address: [address] [place] [address] Performed By: #### 2 4323-8 ####DIEGO LABORATORYCLIA [id number] [address] Protein [Mass/Vol] 7.3 g/dL Normal 6.3-8.0 [facility] Comment on above: Order Comment: Speci men Type: BLOOD SPECIMENOrdering Facility: [facility] Address: [address] [place] [address] Performed By: #### 2 4323-8 ####DIEGO LABORATORYCLIA [id number] [address] Sodium [Moles/Vol] 139 mmol/L Normal 136-144 [facility] Comment on above: Order Comment: Speci men Type: BLOOD SPECIMENOrdering Facility: [facility] Address: [address] [place] [address] Performed By: #### 2 4323-8 ####DIE[facility] LABORATORYCLIA [id number] [address] STATES [facility] Urea nitrogen [Mass/Vol] 14 mg/dL Normal 7-21 [facility] Comment on above: Order Comment: Speci men Type: BLOOD SPECIMENOrdering Facility: [facility] Address: [address] [place] [address] Performed By: #### 2 4323-8 ####DIE[facility] LABORATORYCLIA [id number] [address] ED NOTEon 08-30-2024 ED NOTE HNO ID: [id number] Author: ANRESH GRAF RN Service: Nursing Author Type: Registered Nurse Type: ED Notes Filed: 08/30/2024 14:19 Note Text: Pt discharged from the facility at this time in satisfactory condition. Pt peripheral IV removed prior to discharge. Pt educated on how to schedule follow up appt with PCP. This nurse reviewed entire discharge packet with Pt including: medications, side effects, s/s to report to MD. Pt verbalized understanding. Pt has a ride home. Pt left with all personal belongings exiting the facility. [facility] ED PROV NOTEon 08-30-2024 ED PROV NOTE HNO ID: [id number] Author: SHAKILA RUIZ MD Service: ? Author Type: Physician Type: ED Provider Notes Filed: 08/30/2024 13:55 Note Text: ED Provider Note Patient Name: Cyndee Vital : 1945 SERVICE DATE: 08/30/24 History Patient presents with: Abdominal Pain: Patient presents to ED with son for lower abdominal pain x 2 days. Patient has associated fever and blood in her stool per her son. Patient has hx of alzheimers and thus is poor historian on history and current symptoms. She does have hx of similar episodes which were diagnosed as diverticulitis. Diarrhea Fever Patient presenting for evaluation secondary to loose bloody stools lower abdominal pain and fevers. Over the course of the last 2 days the patient has had the above symptoms. Patient has just had small amounts of blood in the stool. There is a strong family history of diverticulitis patient had a history of this in the distant past. No nausea or vomiting. Tmax at home was 101. No recent travel, hospitalizations, antibiotic use, camping. PAST MEDICAL HISTORY Diagnosis Date Alzheimer's disease (HCC) on experimental drug therapy per son PSVT (paroxysmal supraventricular tachycardia) (HCC) 01/25/2021 Pure hypercholesterolemia 10/14/2019 PVC (premature ventricular contraction) 01/25/2021 PAST SURGICAL HISTORY Procedure Laterality Date NONE FAMILY HISTORY Problem Relation Age of Onset Cancer Mother ovarian Social History Tobacco Use Smoking status: Never Smokeless tobacco: Never Vaping Use Vaping status: Never Used Substance and Sexual Activity Alcohol use: Yes Comment: occasional Drug use: Never Sexual activity: Not on file ALLERGIES No Known Allergies Review of Systems Unable to perform ROS: Dementia Constitutional: Positive for fever. Gastrointestinal: Positive for abdominal pain and blood in stool. Physical Exam Vitals [08/30/24 1127] BP Pulse Temp Temp src Resp SpO2 Weight Height 128/61 75 36.7 ?C (98.1 ?F) Oral 20 96 % 58.1 kg (128 lb) -- Physical Exam Vitals and nursing note reviewed. Constitutional: General: She is not in acute distress. Appearance: Normal appearance. She is well-developed. HENT: Head: Normocephalic and atraumatic. Nose: Nose normal. Mouth/Throat: Mouth: Mucous membranes are moist. Eyes: Conjunctiva/sclera: Conjunctivae normal. Pupils: Pupils are equal, round, and reactive to light. Cardiovascular: Rate and Rhythm: Normal rate and regular rhythm. Heart sounds: Normal heart sounds. Comments: Radial pulses 2+ bilaterally Pulmonary: Effort: Pulmonary effort is normal. No respiratory distress. Breath sounds: Normal breath sounds. Abdominal: General: Bowel sounds are normal. There is no distension. Palpations: Abdomen is soft. Tenderness: There is no abdominal tenderness. Comments: Patient complains of some pain in the lower abdomen but it is not reproducible on palpation. Musculoskeletal: General: No tenderness. Normal range of motion. Cervical back: Normal range of motion and neck supple. Lymphadenopathy: Cervical: No cervical adenopathy. Skin: General: Skin is warm and dry. Capillary Refill: Capillary refill takes less than 2 seconds. Findings: No rash. Neurological: Mental Status: She is alert. Mental status is at baseline. GCS: GCS eye subscore is 4. GCS verbal subscore is 5. GCS motor subscore is 6. Sensory: No sensory deficit. Motor: No weakness. Psychiatric: Mood and Affect: Mood normal. Diagnostic Testing ED Labs Ordered and Reviewed COMPREHENSIVE METABOLIC PANEL - Abnormal; Notable for the following components: Result Value Ref Range Glucose 113 (*) 74 - 99 mg/dL Creatinine 1.13 (*) 0.58 - 0.96 mg/dL Estimated Glomerular Filtration Rate 50 (*) >=60 mL/min/1.73m? All other components within normal limits COMPLETE BLOOD COUNT AND DIFFERENTIAL - Abnormal; Notable for the following components: Abs [place] 0.91 (*) <0.87 k/uL All other components within normal limits Procedures ED Course / Clinical Impression Clinical Impressions as of 08/30/24 1355 Diverticulitis Diarrhea, unspecified type MDM / Disposition / Plan Patient presenting for evaluation secondary to abdominal pain and mucousy stools. She has a nonsurgical abdomen workup was initiated. Patient's creatinine mildly elevated at 1.1 over baseline at 0.8 no significant electrolyte derangements. CBC shows no signs of leukocytosis or shift. CT abdomen and pelvis shows diverticulosis without diverticulitis. No other acute process. Patient's son reports that she has been having bloody mucousy diarrhea. This seems consistent with a likely early diverticulitis so believe that she would benefit from a mechanical soft diet and a shorter course of antibiotics. She does not require hospitalization she is taking p.o. Patient was discharged with a course of Omnicef and Flagyl. History and Record Review (more content not included)... Normal [facility] Office Visiton 08-25-2024 Follow-up visit [id number] ChongeneManas ggmargarita 1945 F Date Provider Department Center 08/25/2024 [id number] CASTILLO [facility] CS None Family History Problem Relation Age of Onset Dementia Maternal Grandmother Family Status - Relation Status Age at Maternal Grandmother Level of Service:46360 [place] OFFICE/OUTPATIENT ESTABLISHED MOD [facility] 30 MIN Reason for Visit and Comments: Dementia [30] Normal [facility] Progress Noteon 08-25-2024 Progress Note Senior Services/Geriatrics Social History Present at visit: patient, son Hao Marital status: Children: 2 children (both local) Living arrangement: alone, own condo, moved here close to daughter in 2018 from [place] >>02/17/22 same >>02/26/23 same >>10/22/23 same >>02/25/24 same- now has 24 hour live in aide >>08/25/24 same Household safety problems: none >>02/17/22 none >>08/22/22 denies >>02/26/23 denies >>10/22/23 one fall outside >>02/25/24 fall >>08/25/24 none Pets: Yes, 1 cat, no issues caring for cat >>08/22/22 gets feed regularly, cleaning litter box Guns in the home: No Wandering potential: No >>02/17/22 none >>08/22/22 denies >>02/26/23 denies >>10/22/23 denies >>02/25/24 is exit seeking, doesn't think her home is her home, family has now installed locks, security >>08/25/24 climbed out of the window, neighbor found her, now family installed alarms on window Elder abuse: No >>02/17/22 none >>08/22/22 almost gave CC to someone on the phone and stopped, then called daughter >>02/26/23 denies >>10/22/23 denies, daughter has spam blockers on phone >>02/25/24 denies >>08/25/24 denies Alcohol/Drug Abuse History: has an occasional beer service: Yes: Spouse was a , served during [place] Highest level of education: some college 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 Activities: watches tv, spends time with cat >>02/17/22 just went on vacation, walks in condo, plays cards, plays piano, visiting friends >>08/22/22 outside, TV, cat sits out with neighbor, gnosticism, >>02/26/23 walks, visits with neighbors, gnosticism, kids' sports games, just came back from vacation >>10/22/23 same >>02/25/24 visits with aide, getting to physical therapy, going on walks >>08/25/24 visits with aides, goes to [facility], goes to [facility] Exercise: walks around her house >>02/17/22 walking, weights >>08/22/22 walks around the condo or in her neighborhood >>02/26/23 walks >>10/22/23 walks >>02/25/24 walks, physical therapy >>08/25/24 walking, goint to [facility] Finances: meeting soon with Medicaid commercial real estate attorney Healthcare Power of Tube Pusher: Yes, Daughter Elizabeth Financial Power of Tube Pusher: Yes, Madi Johnson Living Will: Yes Guardian:No Code Status: Full Code Primary Caregiver: daughterElizabeth overseeing aides, care- 24 hour aide assisting with day to day care/supervision >>08/25/24 same Current care plan/supervision: daughter sees patient 2x/week, talks to her daily, son talks to her daily >>02/17/22 daughter comes over every day >>08/22/22 dtr sees her daily for shot, son in/out, calls >>02/26/23 same >>10/22/23 daughter sees patient every other day, son sees her sometimes >>02/25/24 has 24 hour daycare director, Xochitl who is living with her, another aide Anabell comes 10-15 hours per week to take patient places, does activities with her >>08/25/24 2 aides that come, providing 01/06 supervision, son and daughter alternate days to give aides time off Community resources: None >>02/17/22 none >>08/22/22 no issues >>02/26/23 video monitors, gps tracker on car >>10/22/23 same >>02/25/24 aides 24 hours, video monitors, locks/alarms on doors, daughter sees patient daily >>08/25/24 24 hour aides, video monitors, alarms on doors/windows Caregiver stressors: daughter denies stress; is concerned about the future >>02/17/22 daughter feeling less stress since they got her in a clinical trial >>02/26/23 some stress but manageable >>10/22/23 same >>02/25/24 less stress since aides are in place >>08/25/24 denies Goals for care: evaluate memory, keep patient at home as long as possible, then possibly moving in with daughter As a Caregiver, What Matters Most to You: Planning for future needs According to daughter, patient more repetative during last few years, some suspicious behavior more recently, gets overwhelmed with new information >>02/17/22 Daughter has helped patient get into clinical trial for Alzheimer's. Patient is doing a little better in her function since starting the trial. Daughter has gotten an alarmed pill dispenser for patient; she is doing well with using that. No other resources given today. >>02/26/23 Patient remaining stable in function since last visit. Daughter getting patient into new clinical trial starting in March. Patient still very active. Daughter has added video monitors, GPS trackers on patient's car. Daughter also created a big bulletin board with photos/phone numbers of family members. SW suggested that daughter check out www.Look.io. [employer] Information to check out any other products that may help keep patient as independent as possible. No resources given today. >>10/22/23 Patient misplaces things, daughter has apple tags/tiles on her items. Patient in a another new clinical trial, function is remaining very stable. Patient had a decline on memory test today. Daughter is providing good support and main objective is to keep patient as independent as possible. No resources give (more content not included)... Normal [facility] Progress Note Review of Systems Constitutional: Positive for unexpected weight change. Negative for appetite change, fatigue and fever. HENT: Negative for dental problem, hearing loss and trouble swallowing. Eyes: Negative for visual disturbance. Respiratory: Negative for cough and shortness of breath. Cardiovascular: Negative for leg swelling. Gastrointestinal: Negative for constipation and diarrhea. Genitourinary: Negative for difficulty urinating and dysuria. Musculoskeletal: Negative for arthralgias, back pain and gait problem. Neurological: Negative for tremors, speech difficulty and weakness. Psychiatric/Behavioral: Positive for confusion and sleep disturbance. Negative for agitation, dysphoric mood and hallucinations. The patient is nervous/anxious. Normal [facility] Progress Note [facility] - [address] [address] Dept: [phone] Dept Loc: [phone] Visit type: [facility] Follow Up Visit Reason for Visit: Dementia Visit Date: 08/25/2024 Assessment and Plan 1. Alzheimer's dementia with behavioral disturbance (HCC) -Moderate-severe Alzheimer's Disease. Active with research study. -Behaviors/Mood improved on current medications (seroquel prescribed by research physicians). She is on Ambien for sleep (also prescribed by research physicians). Generally not a medication recommended for geriatric patients with dementia. However, she appears to be tolerating the medication and it is helping with her sleep. -Continue aricept and namanda -Continue zoloft -It is reasonable to discontinue the atorvastatin given her moderate-severe dementia and lack of strokes/heart disease history. Discussed with son that it is unknown if her risk of heart attack or stroke would increase following stopping atorvastatin. I asked son to check in with her PCP first before discontinuing as they are the prescribing physician Follow up in about 6 months (around 02/23/2025). Subjective HPI: Cyndee Vital is a 79 y.o. female with past medical history of Alzheimer's Disease, hypertension, depression who presents to the [facility] for a follow-up visit. The patient is known to me. Chart Review: First seen in October 2021. MOCA . Diagnosed with mild Alzheimer's Disease -August 2022. Continued aricept. Continue zoloft to help with mood. Having some issues with hallucinations. Discussed that one day she may need antipsychotic to help manage them. No ADL issues. Still driving. MOCA was a -February 2023: She is enrolled in a clinical trial for Alzheimer's Disease. Subjectively, cognition stable. MOCA did decline to . MIS 01/21 Zoloft increased to 100 mg daily to help with anxiety/skin picking. -October 2023: MOCA score declined to 10/08. More forgetful and needing more cueing. Referred to Occupational Therapy for driving evaluation. Started back on Vitamin D. Continued on aricept, namenda, and zoloft. -Did receive a message that patient no longer driving. -Last seen in February 2024: MOCA 06/07. The physicians at her research study had placed her on seroquel for behavioral disturbance. Now with 01/06 care at home History obtained from caregiver(s): Son Alpseh -Overall she has been doing well. Still active with the research study. Receiving injections/infusions. The "blooming" on her brain MRI cleared up. -The research physicians prescribe her seroquel and ambien. The seroquel is 50 mg at lunch, 50 mg at four pm, and 100 mg at bedside. This helps to control behaviors. No longer gets upset. -Did have one behavioral "blip" recently. On Thursday she crawled out a window and was found wandering outside. Now they put alarms on the window. Patient was later upset that she did that. -Research physicians suggested taking her off of the cholesterol medication. She has been on it for awhile - son thinks it was started for high cholesterol. No history of heart attacks or strokes. -She physically has been feeling well. Hasn't complained about sciatica. Appetite: Good. Pack Worker cooks for her. She has gained weight. -Still with 01/06 care. Sleep: Research physicians put her on ambien. She is tolerating this well. Sleep is overall better with the seroquel and ambien. Mood: Good overall. A little depressed at times. Upset she crawled out the window. History obtained from patient: Doing well today. Memory: "pretty good". No problems noticed. Sh does not think she receives any help during the day. Mood: doing well. No anxiety. Hallucination: None Sleep: good. Appetite: "I love to eat". Physically feeling well. No pains anywhere. Reviewed progress notes completed by ALFREDO (JULITO) and social work. No Known Allergies Current Outpatient Medications Medication Sig Dispense Refill atorvastatin (Lipitor) 40 MG tablet Take 40 mg by mouth Nightly. donepezil (Aricept) 10 MG tablet Take 1 tablet (10 mg) by mouth Nightly. 90 tablet 1 Folic Acid (FOLATE PO) Take by mouth. Loperamide HCl (IMODIUM PO) Take by mouth. PRN memantine (Namenda) 10 MG tablet Take 10 mg by mouth 2 times daily. metoprolol succinate XL (Toprol-XL) 25 MG 24 hr tablet Take 25 mg by mouth 2 times daily. Pyridoxine HCl (VITAMIN B-6 PO) Take by mouth. QUEtiapine (SEROquel) 25 MG tablet Take 50 mg by mouth See administration instructions. Take 50 mg at lunch, 50mg at 4 and 100mg at 8pm sertraline (Zoloft) 100 MG tablet Take 1 tablet (100 mg) by mouth daily. 30 tablet 11 zolpidem (Ambien) 10 MG tablet Take 10 mg by mouth Nightly as needed for sleep. No current facility-administered medications for this visit. Past Medical History: Diagnosis Date Acute maxillary sinusitis 02/26/2023 Al (more content not included)... [facility] 36 07-22-2024 36 Ordering provider: Gunjan Castillo Date of last office visit: 02/25/24 Date of next office visit: 08/25/24 Updated/Validated preferred pharmacy: Yes [facility] - [place], [place] - [address] [phone] Patient instructed to contact the pharmacy prior to picking up the medication: Yes (1) Medication name: sertraline (Zoloft) 100 MG tablet Medication dosage: 100 mg (Miligrams Monthly quantity needed: 30 How many day supply requestin days Medication route: oral (PO) Medication administration time(s): daily If taking medication PRN, reason for taking medication: N/A If this is a controlled substance do you receive this or any other controlled medication from any other doctor or facility: N/A Date of last refill (see medication tab): 07/05/23 (2) Medication name: donepezil (Aricept) 10 MG tablet Medication dosage: 10 mg (Miligrams Monthly quantity needed: 30 How many day supply requestin days Medication route: oral (PO) Medication administration time(s): Take 1 tablet (10 mg) by mouth Nightly. If taking medication PRN, reason for taking medication: N/A If this is a controlled substance do you receive this or any other controlled medication from any other doctor or facility: N/A Date of last refill (see medication tab): 12/28/23 [facility] NM PET/CT BRAIN PLAQUE IMAGI [facility] 04-26-2024 NM PET/CT BRAIN PLAQUE IMAGING * * *Final Report* * * DATE OF EXAM: Apr 26 2024 3:31PM N 0104 - NM PET/CT BRAIN PLAQUE IMAGING / PROCEDURE REASON: Examination of participant or control in clinical research * * * * Physician Interpretation * * * * EXAMINATION: NM PET/CT BRAIN PLAQUE IMAGING HISTORY: Research scan. Examination of participant or control in clinical research TECHNIQUE: Brain amyloid PET scan. Radiotracer: 18F-florbetapir Dose (mCi): 11.8 Route: Intravenous Patient rested in a dim quiet room for approximately 50 minutes following tracer injection prior to imaging. This examination was performed as a combined PET/CT scan. The CT scan was obtained for attenuation correction purposes only. CT Radiation dose: Integrated Dose-length product (DLP) for this visit: 80 mGy*cm. CT Dose Reduction Employed: Low dose (attenuation protocol) technique. COMPARISON: None. RESULT: Technically adequate brain amyloid PET scan for research purposes. There are no significant incidental findings. Speech Language Pathology Assistant: TOSIN Transcribe Date/Time: May 04 2024 1:10P Dictated by : JOSUÉ MCCORMACK MD This examination was interpreted and the report reviewed and electronically signed by: JOSUÉ MCCORMACK MD on May 04 2024 1:14PM EST [id number] [facility] 04-18-2024 CNPN Telephone ([facility]) CYNDEE VITAL ([id number]) 1945 F Date Time Provider Department 04/18/24 AMILCAR BRADFORD MD [facility] During your visit today, we recorded the following information about you: MoctezumaAbdon RT(R) 04/18/2024 11:41 AM Signed CYNDEE VITAL [id number] DOS: 04/26/24 PET INJ: 1430 PET 2: 1530 APPT NOTES: DO NOT SUBMIT AUTH TO INSURANCE, BILLED TO [employer]ARCH [employer] ANU [id number] PET BRAIN AMYVID [employer] TRANSMITTAL FORM PET 2 ONLY Dasha Bradley 04/18/2024 11:50 AM Signed Scheduled as requested 04/26 @ 1530 Allergies As of Date: 04/18/2024 (No Known Allergies) Date Reviewed: 01/13/2024 Reviewed by: Sujatha Mckee, RN - Fully Assessed Reason for Visit: Returning Patient's Call [[phone]] Prescriptions as of 04/18/2024 - donepezil (ARICEPT) 10 mg tablet TAKE 1 TABLET BY MOUTH NIGHTLY - metoprolol succinate ER (TOPROL XL) 25 mg 24 hr tablet Take 1 tablet by mouth twice daily. - multivit-min/ferrous fumarate (MULTI VITAMIN ORAL) Take by mouth. - aspirin, enteric coated (ASPIRIN, ENTERIC COATED) 81 mg EC tablet Take 1 tablet by mouth once daily. - atorvastatin (LIPITOR) 40 mg tablet Take 1 tablet by mouth daily at bedtime. Problem List As Of Date 04/18/2024 Noted Resolved Chest pain [R07.9] 10/06/2019 10/07/2019 Hypokalemia [E87.6] 10/06/2019 10/07/2019 Pure hypercholesterolemia [E78.00] 10/14/2019 PVC (premature ventricular contraction) [I49.3] 01/25/2021 PSVT (paroxysmal supraventricular tachycardia) *01/25/2021 Abdominal pain [R10.9] 01/03/2024 Back pain [M54.9] 01/03/2024 Examination of participant or control in clinic*04/13/2024 Encounter Status:Closed by ABDON MOCTEZUMA on 04/18/24 Normal [facility] MR Brain WO contraston 01-31 [facility] Absolute lymphocyte countOrd ered By: Emi Cook on 01-26-2024 Lymphocytes Auto (Unsp spec) [#/Vol] 1.56 10*3/uL 0.83-4.51 [facility] Automated lymphocyte count a s percentage of total leukocytesOrdered By: Emi Cook on 01-26-2024 Lymphocytes/100 WBC Auto (Unsp spec) 23.9 % 19-41 [facility] Basophil percentageOrdered B y: Emi Cook on 01-26-2024 Basophils/100 WBC (Bld) 0.8 % 0-1 [facility] Bilirubin [Mass/Vol] 0.50 mg/dL 0.20-1.00 [facility] Comment on above: For patients on eltr ombopag therapy, use of Dimension [place] TBIL is not recommended. Chloride [Moles/Vol] 105 mmol/L 98-107 [facility] Eosinophils/100 WBC (Bld) 2.8 % 0-5 [facility] Glucose [Mass/Vol] 99 mg/dL 74-106 [facility] Hemoglobin (Bld) [Mass/Vol] 12.8 g/dL 12.0-15.0 [facility] Monocytes/100 WBC (Bld) 11.5 % 0-10 [facility] Neutrophils (Bld) [#/Vol] 4.0 10*3/uL 2.0-7.7 [facility] Neutrophils/100 WBC (Bld) 60.7 % 47-70 [facility] Potassium [Moles/Vol] 4.2 mmol/L 3.5-5.1 [facility] Protein [Mass/Vol] 7.4 g/dL 6.4-8.2 [facility] Sodium [Moles/Vol] 140 mmol/L 136-145 [facility] WBC (Bld) [#/Vol] 6.5 10*3/uL 4.4-11.0 [facility] Culture, urineOrdered By: Do ra Cook on 01-26-2024 Bacteria identified Cx Nom (U) Culture exhibits no growth. [facility] Determination of erythrocyte mean corpuscular volume (MCV)Ordered By: Emi Cook on 01-26-2024 MCV (RBC) [Entitic vol] 94.1 fL 81-99 [facility] Erythrocyte distribution wid th ratioOrdered By: Emi Cook on 01-26-2024 Erythrocyte distribution width (RBC) [Ratio] 13.9 % 11.6-14.6 [facility] Erythrocyte distribution wid th standard deviationOrdered By: Emi Cook on 01-26-2024 Erythrocyte distribution width (RBC) [Entitic vol] 47.3 fL 35.1-43.9 [facility] Hematocrit Auto (Bld) [Volum e fraction]Ordered By: Emi Cook on 01-26-2024 Hematocrit (Bld) [Volume fraction] 39.9 % 37-47 [facility] Immature granulocytes/100 WB C Auto (Bld)Ordered By: Emi Cook on 01-26-2024 Immature granulocytes/100 WBC (Bld) 0.300 % 0.0-0.9 [facility] Comment on above: IG% - Immature Granu locytes (promyelocytes, myelocytes and metamyelocytes) > 1% indicates that a LEFT SHIFT is Present. Laboratory - Chemistry and C hemistry - challengeOrdered By: Emi Cook on 01-26-2024 Albumin/Globulin [Mass ratio] 0.9 {ratio} 0.9-2.4 [facility] ALP [Catalytic activity/Vol] 106 U/L 45-117 [facility] ALT [Catalytic activity/Vol] 24 U/L 13-56 [facility] CO2 [Moles/Vol] 29.0 mmol/L 21.0-32.0 [facility] Cobalamin (Vitamin B12) [Mass/Vol] 908 pg/mL 211-911 [facility] Globulin (S) [Mass/Vol] 3.8 g/dL 2.2-4.2 [facility] Urea nitrogen/Creatinine [Mass ratio] 13.4 mg/mg 10-20 [facility] Laboratory - Chemistry and C hemistry - challengeon 01-26-2024 Bilirubin Ql (U) Negative [facility] Glucose Ql (U) Negative [facility] Ketones Ql (U) Negative [facility] pH (U) 6.5 [pH] [facility] Specific gravity (U) [Rel density] 1.015 [facility] Urobilinogen (U) [Mass/Vol] 0.8868912 mg/dL [facility] Laboratory - Hematology and Cell countsOrdered By: Emi Cook on 01-26-2024 MCH (RBC) [Entitic mass] 30.2 pg 27.0-32.0 [facility] MCHC (RBC) [Mass/Vol] 32.1 g/dL 32-36 [facility] Nucleated RBC/100 WBC (Bld) [Ratio] 0 % 0-5 [facility] Platelet mean volume (Bld) [Entitic vol] 9.5 fL 6.2-12.0 [facility] Platelets (Bld) [#/Vol] 302 10*3/uL 150-450 [facility] Laboratory - Hematology and Cell countson 01-26-2024 Hemoglobin Ql (U) Hemolyzed [facility] Laboratory - Specimen inform ationon 01-26-2024 Clarity (U) Clear [facility] Color (U) YELLOW [facility] Laboratory - Urinalysison Nitrite Ql (U) Negative [facility] Protein Ql (U) Negative [facility] No Panel InformationOrdered By: Emi Cook on 01-26-2024 Estimated GFR (MDRD) Amer 72 mL/min >60 [facility] Comment on above: GFR Calc Estimated GFR (MDRD) Non-Af Amer 59 mL/min >60 [facility] Comment on above: Non- GFR Calc No Panel Informationon 01-25 Urine Leukocytes Negatve [facility] Urine Non-Hemolyzed Blood Trace [facility] RBC Auto (Bld) [#/Vol]Ordere d By: Emi Cook on 01-26-2024 RBC (Bld) [#/Vol] 4.24 10*6/uL 4.2-5.4 [facility] Serum or plasma calcitriol m easurement (mass/volume)Ordered By: Emi Cook on 01-26-2024 1,25-dihydroxyvitamin D3 [Mass/Vol] 64.8 pg/mL 24.8-81.5 [facility] Comment on above: Performed at: [address] [id number] Director: Aimrah Menard MD, Phone: [phone] Serum or plasma calcium yahaira urement (mass/volume)Ordered By: Emi Cook on 01-26-2024 Calcium [Mass/Vol] 9.2 mg/dL 8.5-10.1 [facility] Serum or plasma creatinine m easurement (mass/volume)Ordered By: Emi Cook on 01-26-2024 Creatinine [Mass/Vol] 0.97 mg/dL 0.55-1.02 [facility] Comment on above: The validity of the calculated GFR & GFRAA in patients over 70 years has not been determined. Clinical correlation is essential. Serum or plasma thyroid stim ulating hormone (TSH) measurement (units/volume)Ordered By: Emi Cook on 01-26-2024 TSH Qn 2.75 uIU/mL 0.358-3.74 [facility] Serum or plasma urea nitroge n measurement (mass/volume)Ordered By: Emi Cook on 01-26-2024 Urea nitrogen [Mass/Vol] 13 mg/dL 7-18 [facility] Thin prep Papanicolaou smear with manual screeningOrdered By: Emi Cook on 01-26-2024 Thin prep Papanicolaou smear with manual screening 3.6 g/dL 3.2-5.0 [facility] Thin prep Papanicolaou smear with manual screening 19 U/L 15-37 [facility] Thin prep Papanicolaou smear with manual screening 6 5-15 [facility] ALLIED HEALTHon 01-13-2024 ALLIED HEALTH HNO ID: [id number] Author: ESPERANZA ARCINIEGA RT(R) Service: Radiology Author Type: Technologist Type: Allied Health Filed: 01/13/2024 12:20 Note Text: Radiology Service Progress Note PATIENT NAME: Cyndee Vital DATE OF SERVICE: January 13, 2024 TIME: 12:20 PM PATIENT IDENTITY VERIFICATION COMPLETED USING TWO (2) IDENTIFIERS: Name and Date of confirmed by patient verbally and Name and Date of confirmed by identification band. FALL SCREENING: Has the patient had 2 falls in the last year or 1 fall with injury or currently using an Ambulatory Assistive Device (Walker, Cane, Wheelchair, Crutches, etc.)? Emergency Room Patient: Screened in ED PATIENT GENDER DATA: Female. status: : No status: NO. PATIENT RELEVANT IMPLANT DATA REVIEWED: Not Applicable PATIENT PRESENTS WITH AN IMPLANTABLE OR ATTACHED STRATEGIC MARKETING LEADER: No RADIOLOGY DEPARTMENT: CT; Exam(s) Completed: Brain and Spine PERIPHERAL IV DATA: Not applicable SIGNED BY: Esperanza Arciniega, RT(R) January 13, 2024 12:20 PM Normal [facility] Basic metabolic 2000 panelon 01-13-2024 Anion gap [Moles/Vol] 11 mmol/L Normal 9-18 [facility] Comment on above: Order Comment: Speci men Type: BLOOD SPECIMENOrdering Facility: [facility] Address: [address] [place] [address] Performed By: #### 2 4321-2 ####[facility]ORYCLIA [id number] [place] [address] [place] Calcium [Mass/Vol] 9.3 mg/dL Normal 8.5-10.2 [facility] Comment on above: Order Comment: Speci men Type: BLOOD SPECIMENOrdering Facility: [facility] Address: [address] [place] [address] Performed By: #### 2 4321-2 ####[facility]ATORYCLIA [id number] [place] [address] [place] Chloride [Moles/Vol] 96 mmol/L Low 97-105 [facility] Comment on above: Order Comment: Speci men Type: BLOOD SPECIMENOrdering Facility: [facility] Address: [address] [place] [address] Performed By: #### 2 4321-2 ####[facility]ORYCLIA [id number] [place] [address] [place] CO2 [Moles/Vol] 27 mmol/L Normal 22-30 [facility] Comment on above: Order Comment: Speci men Type: BLOOD SPECIMENOrdering Facility: [facility] Address: [address] [place] [address] Performed By: #### 2 4321-2 ####[facility]ATORYCLIA [id number] [place] [id number] [place] [facility] Creatinine [Mass/Vol] 0.85 mg/dL Normal 0.58-0.96 [facility] Comment on above: Order Comment: Jessica shearer Type: BLOOD SPECIMENOrdering Facility: [facility] Address: [address] [place] [address] Performed By: #### 2 4321-2 ####[facility]ORYCLIA [id number] [address] Creatinine and Glomerular filtration rate.predicted panel (S/P/Bld) 71 mL/min/1.73m??? Normal >=60 [facility] Comment on above: Order Comment: Jessica shearer Type: BLOOD SPECIMENOrdering Facility: [facility] Address: [address] [place] [address] Result Comment: Tanja mated Glomerular Filtration Rate (eGFR) is calculated using the 2020 CKD-EPI creatinine equation. This equation utilizes serum creatinine, sex, and age as parameters. The creatinine assay has traceable calibration to isotope dilution-mass spectrometry. Refer to KDIGO guidelines for clinical interpretation. In patients with unstable renal function, e.g. those with acute kidney injury, the eGFR may not accurately reflect actual GFR. Performed By: #### 2 4321-2 ####[facility]ORYCLIA [id number] [place] [id number] [facility] Glucose [Mass/Vol] 108 mg/dL High 74-99 [facility] Comment on above: Order Comment: Jessica shearer Type: BLOOD SPECIMENOrdering Facility: [facility] Address: [address] [place] [address] Result Comment: The [place] Diabetes Association (ADA) provides guidance for cutoff values for fasting glucose and random glucose. The ADA defines fasting as no caloric intake for at least 8 hours. Fasting plasma glucose results between 100 to 125 mg/dL indicate increased risk for diabetes (prediabetes). Fasting plasma glucose results greater than or equal to 126 mg/dL meet the criteria for diagnosis of diabetes. In the absence of unequivocal hyperglycemia, results should be confirmed by repeat testing. In a patient with classic symptoms of hyperglycemia or hyperglycemic crisis, random plasma glucose results greater than or equal to 200 mg/dL meet the criteria for diagnosis of diabetes. Reference: Standards of Medical Care in Diabetes 2016, [place] Diabetes Association. Diabetes Care. 2016.39(Suppl 1). Performed By: #### 2 4321-2 ####[facility]ORYCLIA [id number] [address] [place] Potassium [Moles/Vol] 3.7 mmol/L Normal 3.7-5.1 [facility] Comment on above: Order Comment: Jessica shearer Type: BLOOD SPECIMENOrdering Facility: [facility] Address: [address] [place] [address] Performed By: #### 2 4321-2 ####[facility]ORYCLIA [id number] [address] Sodium [Moles/Vol] 134 mmol/L Low 136-144 [facility] Comment on above: Order Comment: Jessica shearer Type: BLOOD SPECIMENOrdering Facility: [facility] Address: [address] [place] [address] Performed By: #### 2 4321-2 ####[facility]ORYCLIA [id number] [address] Urea nitrogen [Mass/Vol] 19 mg/dL Normal 7-21 [facility] Comment on above: Order Comment: Jessica shearer Type: BLOOD SPECIMENOrdering Facility: [facility] Address: [address] [place] [address] Performed By: #### 2 4321-2 ####[facility]ORYCLIA [id number] [address] [place] CBC panel Auto (Bld)on 01-12 Erythrocyte distribution width (RBC) [Ratio] 13.0 % Normal 11.5-15.0 [facility] Comment on above: Order Comment: Jessica shearer Type: BLOOD SPECIMENOrdering Facility: [facility] Address: [address] [place] [address] Performed By: #### 5 8410-2 ####[facility]ORYCLIA [id number] [address] [place] Hematocrit (Bld) [Volume fraction] 38.4 % Normal 36.0-46.0 [facility] Comment on above: Order Comment: Speci men Type: BLOOD SPECIMENOrdering Facility: [facility] Address: [address] [place] [address] Performed By: #### 5 8410-2 ####[facility]ATORYCLIA [id number] [address] Hemoglobin (Bld) [Mass/Vol] 13.6 g/dL Normal 11.5-15.5 [facility] Comment on above: Order Comment: Speci men Type: BLOOD SPECIMENOrdering Facility: [facility] Address: [address] [place] [address] Performed By: #### 5 8410-2 ####[facility]ORYCLIA [id number] [address] MCH (RBC) [Entitic mass] 31.6 pg Normal 26.0-34.0 [facility] Comment on above: Order Comment: Speci men Type: BLOOD SPECIMENOrdering Facility: [facility] Address: [address] [place] [address] Performed By: #### 5 8410-2 ####[facility]ORYCLIA [id number] [address] MCHC (RBC) [Mass/Vol] 35.4 g/dL Normal 30.5-36.0 [facility] Comment on above: Order Comment: Speci men Type: BLOOD SPECIMENOrdering Facility: [facility] Address: [address] [place] [address] Performed By: #### 5 8410-2 ####[facility]ORYCLIA [id number] [address] MCV (RBC) [Entitic vol] 89.1 fL Normal 80.0-100.0 [facility] Comment on above: Order Comment: Speci men Type: BLOOD SPECIMENOrdering Facility: [facility] Address: [address] [place] [address] Performed By: #### 5 8410-2 ####[facility]ATORYCLIA [id number] [place] [address] [place] Nucleated RBC (Bld) [#/Vol] 10*3/uL Normal <0.01 [facility] Comment on above: Order Comment: Speci men Type: BLOOD SPECIMENOrdering Facility: [facility] Address: [address] [place] [address] Performed By: #### 5 8410-2 ####[facility]ORYCLIA [id number] [place] [address] [place] Platelet mean volume (Bld) [Entitic vol] 9.2 fL Normal 9.0-12.7 [facility] Comment on above: Order Comment: Speci men Type: BLOOD SPECIMENOrdering Facility: [facility] Address: [address] [place] [address] Performed By: #### 5 8410-2 ####[facility]ATORYCLIA [id number] [place] [address] [place] Platelets (Bld) [#/Vol] 322 10*3/uL Normal 150-400 [facility] Comment on above: Order Comment: Speci men Type: BLOOD SPECIMENOrdering Facility: [facility] Address: [address] [place] [address] Performed By: #### 5 8410-2 ####[facility]ORYCLIA [id number] [place] [address] [place] RBC (Bld) [#/Vol] 4.31 10*6/uL Normal 3.90-5.20 [facility] Comment on above: Order Comment: Speci men Type: BLOOD SPECIMENOrdering Facility: [facility] Address: [address] [place] [address] Performed By: #### 5 8410-2 ####[facility]ORYCLIA [id number] [place] [address] [place] WBC (Bld) [#/Vol] 13.59 10*3/uL High 3.70-11.00 [facility] Comment on above: Order Comment: Speci men Type: BLOOD SPECIMENOrdering Facility: [facility] Address: [address] [place] [address] Performed By: #### 5 8410-2 ####[facility] [id number] [place] [address] [place] [address] BRAIN WO IVCONon 01-13-[address] BRAIN WO IVCON * * *Final Report* * * DATE OF EXAM: Jan 13 2024 12:20PM [facility] - CT BRAIN WO IVCON / PROCEDURE REASON: Head trauma, moderate-severe * * * * Physician Interpretation * * * * EXAMINATION: CT BRAIN WO IVCON, CT CERVICAL SPINE WO IVCON PATIENT/TECHNOLOGIST PROVIDED HISTORY: Hematoma on back of head from fall this morning; no thinner, no LOC witnessed Was in bathroom and fell off the toilet CLINICAL HISTORY: 78 years old Female with Head trauma, moderate-severe. Spine fracture, cervical, traumatic. TECHNIQUE: Serial axial unenhanced images were obtained from the vertex to the foramen magnum. Spiral, high resolution axial unenhanced images were obtained from the skull base to the cervicothoracic junction with sagittal and coronal planar reconstructions. MQ: CTBCSWO_3 Dose-Length Product (DLP): 878 mGy*cm. CT Dose Reduction Employed: Automated exposure control(AEC) and iterative recon COMPARISON: CT brain 01/03/2024 RESULT: BRAIN: Acute change: No evidence of an acute contusion or other acute parenchymal process. Hemorrhage: No evidence of acute intracranial hemorrhage. Mass lesion / Mass effect: There is no evidence of an intracranial mass or extraaxial fluid collection. No significant mass effect. Chronic change: Scattered patchy foci of low attenuation are present within supratentorial white matter which is a nonspecific finding but likely represents mild microvascular ischemia. Parenchyma: There is mild generalized volume loss. The brain parenchyma is otherwise within normal limits for age. 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 Paranasal sinuses and skull base: 5.0 x 1.6 cm LEFT parietal scalp hematoma without underlying calvarial fracture. Mild mucosal thickening of the ethmoid air cells and LEFT maxillary sinus. No air-fluid levels. CERVICAL: Counting reference: Craniocervical junction. Anatomic Variants: None. 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 Craniocervical junction: Craniocervical junction is normal. Osseous structures/fracture: Osteopenia which limits sensitivity for detecting subtle nondisplaced fractures. No acute fracture identified. Chronic RIGHT C6 pars defect and unfused C6 spinous process. Cervical soft tissues: The paraspinal soft tissues planes are maintained. Degenerative changes: Degenerative hypertrophic changes at the C1-C2 articulation. Multilevel facet degenerative changes. Facet and uncovertebral degenerative change contribute to mild RIGHT C5-C6 foraminal stenosis. No significant canal stenosis. Motor Vehicle Field Representative (topogram) images: No significant findings. IMPRESSION: No CT evidence of acute intracranial abnormality. 5 cm LEFT parietal scalp hematoma without underlying calvarial fracture. No evidence of acute cervical spine fracture. 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 Speech Language Pathology Assistant: PSCB Transcribe Date/Time: Jan 13 2024 12:40P Dictated by : ADDISON GUTIERREZ DO This examination was interpreted and the report reviewed and electronically signed by: ADDISON GUTIERREZ DO on Jan 13 2024 1:08PM EST [id number] [facility] CT CERVICAL SPINE WO IVCONon 01-13-2024 CT CERVICAL SPINE WO IVCON * * *Final Report* * * DATE OF EXAM: Jan 13 2024 12:20PM [facility] 0505 - CT CERVICAL SPINE WO IVCON / PROCEDURE REASON: Spine fracture, cervical, traumatic * * * * Physician Interpretation * * * * EXAMINATION: CT BRAIN WO IVCON, CT CERVICAL SPINE WO IVCON PATIENT/TECHNOLOGIST PROVIDED HISTORY: Hematoma on back of head from fall this morning; no thinner, no LOC witnessed Was in bathroom and fell off the toilet CLINICAL HISTORY: 78 years old Female with Head trauma, moderate-severe. Spine fracture, cervical, traumatic. TECHNIQUE: Serial axial unenhanced images were obtained from the vertex to the foramen magnum. Spiral, high resolution axial unenhanced images were obtained from the skull base to the cervicothoracic junction with sagittal and coronal planar reconstructions. MQ: CTBCSWO_3 Dose-Length Product (DLP): 878 mGy*cm. CT Dose Reduction Employed: Automated exposure control(AEC) and iterative recon COMPARISON: CT brain 01/03/2024 RESULT: BRAIN: Acute change: No evidence of an acute contusion or other acute parenchymal process. Hemorrhage: No evidence of acute intracranial hemorrhage. Mass lesion / Mass effect: There is no evidence of an intracranial mass or extraaxial fluid collection. No significant mass effect. Chronic change: Scattered patchy foci of low attenuation are present within supratentorial white matter which is a nonspecific finding but likely represents mild microvascular ischemia. Parenchyma: There is mild generalized volume loss. The brain parenchyma is otherwise within normal limits for age. 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 Paranasal sinuses and skull base: 5.0 x 1.6 cm LEFT parietal scalp hematoma without underlying calvarial fracture. Mild mucosal thickening of the ethmoid air cells and LEFT maxillary sinus. No air-fluid levels. CERVICAL: Counting reference: Craniocervical junction. Anatomic Variants: None. 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 Craniocervical junction: Craniocervical junction is normal. Osseous structures/fracture: Osteopenia which limits sensitivity for detecting subtle nondisplaced fractures. No acute fracture identified. Chronic RIGHT C6 pars defect and unfused C6 spinous process. Cervical soft tissues: The paraspinal soft tissues planes are maintained. Degenerative changes: Degenerative hypertrophic changes at the C1-C2 articulation. Multilevel facet degenerative changes. Facet and uncovertebral degenerative change contribute to mild RIGHT C5-C6 foraminal stenosis. No significant canal stenosis. Motor Vehicle Field Representative (topogram) images: No significant findings. IMPRESSION: No CT evidence of acute intracranial abnormality. 5 cm LEFT parietal scalp hematoma without underlying calvarial fracture. No evidence of acute cervical spine fracture. 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 Speech Language Pathology Assistant: [facility] HOSPITALGinny Transcribe Date/Time: Jan 13 2024 12:40P Dictated by : ADDISON GUTIERREZ DO This examination was interpreted and the report reviewed and electronically signed by: ADDISON GUTIERREZ DO on Jan 13 2024 1:08PM EST [id number] Normal [facility] ED NOTEon 01-13-2024 ED NOTE HNO ID: [id number] Author: BETTY GAFFNEY RN Service: Nursing Author Type: Registered Nurse Type: ED Notes Filed: 01/13/2024 14:16 Note Text: Pt is being discharged home in stable condition, with son. Breathing even and unlabored, color good, skin warm and dry. Pt reports no pain at this time. Discharge instructions, and follow up reviewed, pt verbalized understanding, with no further questions for this nurse. Pt was provided with a copy of discharge instructions . IV removed, no bleeding noted. Pt was encouraged to return to ED as needed, for persistent or worsening symptoms or any new concerns, pt verbalized understanding. Pt ambulated off ED in no distress, with son. [facility] ED NOTE HNO ID: [id number] Author: BETTY GAFFNEY RN Service: Nursing Author Type: Registered Nurse Type: ED Notes Filed: 01/13/2024 12:26 Note Text: Pt back to Ed from CT [facility] ED NOTE HNO ID: [id number] Author: BETTY GAFFNEY RN Service: Nursing Author Type: Registered Nurse Type: ED Notes Filed: 01/13/2024 11:55 Note Text: Pt to CT with tech [facility] ED NOTE HNO ID: [id number] Author: SUJATHA MCKEE RN Service: Nursing Author Type: Registered Nurse Type: ED Notes Filed: 01/13/2024 11:20 Note Text: Patient has been taking flexeril 3x daily and has been unsteady. She fell off the toilet this morning, large hematoma on back of head. No thinners, no LOC per her daughter who witnessed the fall. [facility] ED PROV NOTEon 01-13-2024 ED PROV NOTE HNO ID: [id number] Author: SHAKILA WARE DO Service: Emergency Medicine Author Type: Physician Type: ED Provider Notes Filed: 01/13/2024 19:58 Note Text: ED Provider Note Patient Name: Cyndee Vital : 1945 SERVICE DATE: 01/13/24 History Patient presents with: Head Injury: Hematoma on back of head from fall this morning; no thinner, no LOC witnessed Was in bathroom and fell off the toilet Confusion: Son has concern for UTI for her Cyndee Vital is a 78-year-old female who is presenting to the emergency department after a fall. Patient has a history of Alzheimer's dizziness. She was sick with COVID at the end of December. She is also been dealing with sciatic tenderness taking Flexeril. He attributes this to his increased clumsiness. Today she fell off the toilet striking the back of her head. States she simply lost her balance. She denies loss of consciousness or other injuries other than a head injury. Have some concerns that she may be developing a urinary tract infection though the patient herself denies any symptoms. PAST MEDICAL HISTORY Diagnosis Date Alzheimer's disease (HCC) on experimental drug therapy per son PSVT (paroxysmal supraventricular tachycardia) (HCC) 01/25/2021 Pure hypercholesterolemia 10/14/2019 PVC (premature ventricular contraction) 01/25/2021 PAST SURGICAL HISTORY Procedure Laterality Date NONE FAMILY HISTORY Problem Relation Age of Onset Cancer Mother ovarian Social History Tobacco Use Smoking status: Never Smokeless tobacco: Never Vaping Use Vaping Use: Never used Substance and Sexual Activity Alcohol use: Yes Comment: occasional Drug use: Never Sexual activity: Not on file ALLERGIES No Known Allergies Review of Systems Constitutional: Negative for chills and fever. HENT: Negative for congestion, rhinorrhea and sore throat. Respiratory: Negative for cough and shortness of breath. Cardiovascular: Negative for chest pain, palpitations and leg swelling. Gastrointestinal: Negative for abdominal pain, diarrhea, nausea and vomiting. Genitourinary: Negative for dysuria and hematuria. Musculoskeletal: Negative for back pain. Skin: Negative for pallor, rash and wound. Neurological: Negative for headaches. Psychiatric/Behavioral: Negative for confusion. Physical Exam Vitals [01/13/24 1117] BP Pulse Temp Temp src Resp SpO2 Weight Height 132/60 87 37 ?C (98.6 ?F) Oral 16 97 % 58.1 kg (128 lb) -- Physical Exam Diagnostic Testing ED Labs Ordered and Reviewed - No data to display Procedures ED Course / Clinical Impression Clinical Impressions as of 01/13/241954 Injury of head, initial encounter Fall, initial encounter MDM / Disposition / Plan Cyndee Aguirre Baringer 78-year-old female is presenting to the emergency department after a fall with head injury. CT imaging negative. There was some concern that there may have been a urinary tract infection however this does not seem to be the case on her urinalysis. She otherwise seems to be acting normally. Son is at bedside who agrees. Given her falls at home we had a discussion regarding her safety and they all feel comfortable with her returning. Patient will be discharged advised to follow-up with her primary physician. History and Record Review Clinical information obtained from an independent historian. History obtained from or confirmed by: family member. External record(s) reviewed: PDMP reviewed. Differential Diagnoses - Fall - Mild head injury - Intracranial hemorrhage is less likely for the following reason(s): no evidence on imaging - Skull fracture is less likely for the following reason(s): no evidence on imaging - Urinary tract infection is less likely for the following reason(s): no evidence on imaging Management Radiology Reports CT BRAIN WO IVCON Final Result IMPRESSION: No CT evidence of acute intracranial abnormality. 5 cm LEFT parietal scalp hematoma without underlying calvarial fracture. No evidence of acute cervical spine fracture. 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 Speech Language Pathology Assistant: TOSIN Transcribe Date/Time: Jan 13 2024 12:40P Dictated by : ADDISON GUTIERREZ DO This examination was interpreted and the report reviewed and electronically signed by: ADDISON GUTIERREZ DO on Jan 13 2024 1:08PM EST CT CERVICAL SPINE WO IVCON Final Result IMPRESSION: No CT evidence of acute intracranial abnormality. 5 cm LEFT parietal scalp hematoma without underlying calvarial fracture. No evidence of acute cervical spine fracture. 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 Speech Language Pathology Assistant: [employer] Transcribe Date/Time: Jan 13 2024 12:40P Dictated by : ADDISON GUTIERREZ DO This examination was interpreted and the report reviewed and electronically signed by: ADDISON GUTIERREZ DO on Jan 13 2024 1:08PM EST Meds Given During Visit ED Me (more content not included)... Normal [facility] Urinalysis complete panel (U )on 01-13-2024 Bacteria LM.HPF (Urine sed) [#/Area] Few Abnormal None Seen [facility] Comment on above: Order Comment: Jessica shearer Type: URINE SPECIMENOrdering Facility: [facility] Address: [address] [place] [address] Performed By: #### 2 4356-8 ####[facility]ORATORYCLIA [id number] [place] [address] [place] Bilirubin Ql (U) Negative Normal Negative [facility] Comment on above: Order Comment: Jessica shearer Type: URINE SPECIMENOrdering Facility: [facility] Address: [address] [place] [address] Performed By: #### 2 4356-8 ####[facility]ATORYCLIA [id number] [address] [place] CALCIUM OXALATE CRYSTALS (UA) Moderate Abnormal None Seen [facility] Comment on above: Order Comment: Speci men Type: URINE SPECIMENOrdering Facility: [facility] Address: [address] [place] [address] Performed By: #### 2 4356-8 ####[facility]ORATORYCLIA [id number] [place] [id number] [facility] [place] Clarity (Unsp spec) Clear Normal Clear [facility] Comment on above: Order Comment: Speci men Type: URINE SPECIMENOrdering Facility: [facility] Address: [address] [place] [address] Performed By: #### 2 4356-8 ####[facility]ORATORYCLIA [id number] [place] [address] [place] Color (U) Yellow Normal Yellow [facility] Comment on above: Order Comment: Speci men Type: URINE SPECIMENOrdering Facility: [facility] Address: [address] [place] [address] Performed By: #### 2 4356-8 ####[facility]ATORYCLIA [id number] [address] [place] Epithelial cells LM.HPF (Urine sed) [#/Area] Few Normal [facility] Comment on above: Order Comment: Speci men Type: URINE SPECIMENOrdering Facility: [facility] Address: [address] [place] [address] Performed By: #### 2 4356-8 ####[facility]ATORYCLIA [id number] [place] [address] [place] Glucose Test strip (U) [Mass/Vol] Negative Normal Negative [facility] Comment on above: Order Comment: Speci men Type: URINE SPECIMENOrdering Facility: [facility] Address: [address] [place] [address] Performed By: #### 2 4356-8 ####[facility]ATORYCLIA [id number] [place] [address] [place] Hemoglobin Ql (U) Trace Abnormal Negative [facility] Comment on above: Order Comment: Speci men Type: URINE SPECIMENOrdering Facility: [facility] Address: [address] [place] [address] Performed By: #### 2 4356-8 ####[facility]ATORYCLIA [id number] [place] [address] [place] Ketones Ql (U) Negative Normal Negative [facility] Comment on above: Order Comment: Speci men Type: URINE SPECIMENOrdering Facility: [facility] Address: [address] [place] [address] Performed By: #### 2 4356-8 ####[facility]ATORYCLIA [id number] [address] [place] Leukocyte esterase Test strip Ql (U) Negative Normal Negative [facility] Comment on above: Order Comment: Speci men Type: URINE SPECIMENOrdering Facility: [facility] Address: [address] [place] [address] Performed By: #### 2 4356-8 ####[facility]ATORYCLIA [id number] [place] [address] [place] Nitrite Ql (U) Negative Normal Negative [facility] Comment on above: Order Comment: Speci men Type: URINE SPECIMENOrdering Facility: [facility] Address: [address] [place] [address] Performed By: #### 2 4356-8 ####[facility]ATORYCLIA [id number] [place] [address] [place] pH (U) 6.0 [pH] Normal 5.0-8.0 [facility] Comment on above: Order Comment: Speci men Type: URINE SPECIMENOrdering Facility: [facility] Address: [address] [place] [address] Performed By: #### 2 4356-8 ####[facility]ATORYCLIA [id number] [place] [address] [place] Protein (U) [Mass/Vol] Negative Normal Negative [facility] Comment on above: Order Comment: Speci men Type: URINE SPECIMENOrdering Facility: [facility] Address: [address] [place] [address] Performed By: #### 2 4356-8 ####[facility]ATORYCLIA [id number] [address] RBC LM.HPF (Urine sed) [#/Area] 0-3 /HPF Normal 0-3 /HPF [facility] Comment on above: Order Comment: Speci men Type: URINE SPECIMENOrdering Facility: [facility] Address: [address] [place] [address] Performed By: #### 2 4356-8 ####[facility]ATORYCLIA [id number] [address] Specific gravity (U) [Rel density] 1.020 Normal 1.005-1.030 [facility] Comment on above: Order Comment: Speci men Type: URINE SPECIMENOrdering Facility: [facility] Address: [address] [place] [address] Performed By: #### 2 4356-8 ####[facility]ATORYCLIA [id number] [address] Urobilinogen Ql (U) 0.2 EU/dL Normal 0.2-1.0 EU/dL [facility] Comment on above: Order Comment: Speci men Type: URINE SPECIMENOrdering Facility: [facility] Address: [address] [place] [address] Performed By: #### 2 4356-8 ####[facility]ATORYCLIA [id number] [address] WBC LM.HPF (Urine sed) [#/Area] 0-5 /HPF Normal 0-5 /HPF [facility] Comment on above: Order Comment: Speci men Type: URINE SPECIMENOrdering Facility: [facility] Address: [address] [place] [address] Performed By: #### 2 4356-8 ####[facility]ATORYCLIA [id number] [address] [place] ALLIED HEALTHon 01-03-2024 ALLIED HEALTH HNO ID: [id number] Author: DENISE CHURCH RT(R) Service: Radiology Author Type: Technologist Type: Allied Health Filed: 01/03/2024 04:57 Note Text: Radiology Service Progress Note DATE OF SERVICE: January 03, 2024 TIME: 4:39 AM PATIENT IDENTITY VERIFICATION COMPLETED USING TWO (2) STANDARD IDENTIFIERS: Name and Date of confirmed by patient verbally. FALL SCREENING: Has the patient had 2 falls in the last year or 1 fall with injury or currently using an Ambulatory Assistive Device (Walker, Cane, Wheelchair, Crutches, etc.)? Emergency Room Patient: Screened in ED PATIENT GENDER DATA: Female. status: : No status: NO. PATIENT RELEVANT IMPLANT DATA REVIEWED: Yes PATIENT PRESENTS WITH AN IMPLANTABLE OR ATTACHED STRATEGIC MARKETING LEADER: No ALLERGIES: Reviewed and unchanged CONTRAST ALLERGY: NO. EXAM: CT -CONTRAST INDUCED NEPHROPATHY RISK FACTORS: Patient age > 60 years CREATININE: Creatinine Date Value Ref Range Status 01/03/2024 0.81 0.58 - 0.96 mg/dL Final 10/07/2019 0.73 0.58 - 0.96 mg/dL Final 10/06/2019 0.82 0.58 - 0.96 mg/dL Final Estimated Glomerular Filtration Rate Date Value Ref Range Status 01/03/2024 75 >=60 mL/min/1.73m? Final Comment: Estimated Glomerular Filtration Rate (eGFR) is calculated using the 2020 CKD-EPI creatinine equation. This equation utilizes serum creatinine, sex, and age as parameters. The creatinine assay has traceable calibration to isotope dilution-mass spectrometry. Refer to KDIGO guidelines for clinical interpretation. In patients with unstable renal function, e.g. those with acute kidney injury, the eGFR may not accurately reflect actual GFR. eGFR- Date Value Ref Range Status 10/07/2019 >60 Final P.O.C.T. RESULTS: POC done: Yes, See Lab Tab January 03, 2024 TREATMENT: N/A PERIPHERAL IV DATA: Inpatient - refer to [facility] documentation RADIOLOGY DEPARTMENT: CT; Exam(s) Completed: Brain , CTA Abdomen Pelvis, and CTA Chest SIGNATURE: RT Ranjit(R) PATIENT NAME: Cyndee Vital DATE: January 03, 2024 TIME: 4:39 AM [facility] CBC W Auto Differential pane l (Bld)on 01-03-2024 Basophils (Bld) [#/Vol] 10*3/uL Normal <0.11 [facility] Comment on above: Order Comment: Speci men Type: BLOOD SPECIMENOrdering Facility: [facility] Address: [address] [place] [address] Performed By: #### 5 7021-8 ####[facility]ORATORYCLIA [id number] [place] [address] [place] Basophils/100 WBC (Bld) 0.1 % Normal [facility] Comment on above: Order Comment: Speci men Type: BLOOD SPECIMENOrdering Facility: [facility] Address: [address] [place] [address] Performed By: #### 5 7021-8 ####[facility]ATORYCLIA [id number] [address] [place] Differential cell count method Nom (Bld) Auto Normal [facility] Comment on above: Order Comment: Speci men Type: BLOOD SPECIMENOrdering Facility: [facility] Address: [address] [place] [address] Performed By: #### 5 7021-8 ####[facility]ATORYCLIA [id number] [place] [address] [place] Eosinophils (Bld) [#/Vol] 10*3/uL Normal <0.46 [facility] Comment on above: Order Comment: Speci men Type: BLOOD SPECIMENOrdering Facility: [facility] Address: [address] [place] [address] Performed By: #### 5 7021-8 ####[facility]ORATORYCLIA [id number] [place] [address] [place] Eosinophils/100 WBC (Bld) 0.0 % Normal [facility] Comment on above: Order Comment: Speci men Type: BLOOD SPECIMENOrdering Facility: [facility] Address: [address] [place] [address] Performed By: #### 5 7021-8 ####[facility]ORATORYCLIA [id number] [place] [address] [place] Erythrocyte distribution width (RBC) [Ratio] 13.1 % Normal 11.5-15.0 [facility] Comment on above: Order Comment: Speci men Type: BLOOD SPECIMENOrdering Facility: [facility] Address: [address] [place] [address] Performed By: #### 5 7021-8 ####[facility]ATORYCLIA [id number] [address] [place] Hematocrit (Bld) [Volume fraction] 44.7 % Normal 36.0-46.0 [facility] Comment on above: Order Comment: Speci men Type: BLOOD SPECIMENOrdering Facility: [facility] Address: [address] [place] [address] Performed By: #### 5 7021-8 ####[facility]ATORYCLIA [id number] [address] [place] Hemoglobin (Bld) [Mass/Vol] 15.3 g/dL Normal 11.5-15.5 [facility] Comment on above: Order Comment: Speci men Type: BLOOD SPECIMENOrdering Facility: [facility] Address: [address] [place] [address] Performed By: #### 5 7021-8 ####[facility]ATORYCLIA [id number] [address] [place] Immature granulocytes (Bld) [#/Vol] 0.09 10*3/uL Normal <0.10 [facility] Comment on above: Order Comment: Speci men Type: BLOOD SPECIMENOrdering Facility: [facility] Address: [address] [place] [address] Performed By: #### 5 7021-8 ####[facility]ATORYCLIA [id number] [address] [place] Immature granulocytes/100 WBC (Bld) 0.8 % Normal [facility] Comment on above: Order Comment: Speci men Type: BLOOD SPECIMENOrdering Facility: [facility] Address: [address] [place] [address] Performed By: #### 5 7021-8 ####[facility]ORATORYCLIA [id number] [place] [address] Lymphocytes (Bld) [#/Vol] 1.54 10*3/uL Normal 1.00-4.00 [facility] Comment on above: Order Comment: Speci men Type: BLOOD SPECIMENOrdering Facility: [facility] Address: [address] [place] [address] Performed By: #### 5 7021-8 ####[facility]ATORYCLIA [id number] [address] Lymphocytes/100 WBC (Bld) 13.3 % Normal [facility] Comment on above: Order Comment: Speci men Type: BLOOD SPECIMENOrdering Facility: [facility] Address: [address] [place] [address] Performed By: #### 5 7021-8 ####[facility]ORATORYCLIA [id number] [address] [place] [facility] MCH (RBC) [Entitic mass] 31.4 pg Normal 26.0-34.0 [facility] Comment on above: Order Comment: Speci men Type: BLOOD SPECIMENOrdering Facility: [facility] Address: [address] [place] [address] Performed By: #### 5 7021-8 ####[facility]ATORYCLIA [id number] [address] STATES [facility] MCHC (RBC) [Mass/Vol] 34.2 g/dL Normal 30.5-36.0 [facility] Comment on above: Order Comment: Speci men Type: BLOOD SPECIMENOrdering Facility: [facility] Address: [address] [place] [address] Performed By: #### 5 7021-8 ####[facility]ORATORYCLIA [id number] [address] STATES [facility] MCV (RBC) [Entitic vol] 91.8 fL Normal 80.0-100.0 [facility] Comment on above: Order Comment: Speci men Type: BLOOD SPECIMENOrdering Facility: [facility] Address: [address] [place] [address] Performed By: #### 5 7021-8 ####[facility]ORATORYCLIA [id number] [place] [address] [place] Monocytes (Bld) [#/Vol] 0.47 10*3/uL Normal <0.87 [facility] Comment on above: Order Comment: Speci men Type: BLOOD SPECIMENOrdering Facility: [facility] Address: [address] [place] [address] Performed By: #### 5 7021-8 ####[facility]ORATORYCLIA [id number] [place] [address] [place] Monocytes/100 WBC (Bld) 4.1 % Normal [facility] Comment on above: Order Comment: Speci men Type: BLOOD SPECIMENOrdering Facility: [facility] Address: [address] [place] [address] Performed By: #### 5 7021-8 ####[facility]ORATORYCLIA [id number] [place] [address] [place] Neutrophils (Bld) [#/Vol] 9.49 10*3/uL High 1.45-7.50 [facility] Comment on above: Order Comment: Speci men Type: BLOOD SPECIMENOrdering Facility: [facility] Address: [address] [place] [address] Performed By: #### 5 7021-8 ####[facility]ORATORYCLIA [id number] [address] [place] Neutrophils/100 WBC (Bld) 81.7 % Normal [facility] Comment on above: Order Comment: Speci men Type: BLOOD SPECIMENOrdering Facility: [facility] Address: [address] [place] [address] Performed By: #### 5 7021-8 ####[facility] LABORATORYCLIA [id number] [place] [address] [place] Nucleated RBC (Bld) [#/Vol] 10*3/uL Normal <0.01 [facility] Comment on above: Order Comment: Speci men Type: BLOOD SPECIMENOrdering Facility: [facility] Address: [address] [place] [address] Performed By: #### 5 7021-8 ####[facility] LABORATORYCLIA [id number] [place] [address] [place] Nucleated RBC/100 WBC (Bld) [Ratio] 0.0 /100 WBC Normal [facility] Comment on above: Order Comment: Speci men Type: BLOOD SPECIMENOrdering Facility: [facility] Address: [address] [place] [address] Performed By: #### 5 7021-8 ####[facility]ORATORYCLIA [id number] [place] [address] [place] Platelet mean volume (Bld) [Entitic vol] 9.9 fL Normal 9.0-12.7 [facility] Comment on above: Order Comment: Speci men Type: BLOOD SPECIMENOrdering Facility: [facility] Address: [address] [place] [address] Performed By: #### 5 7021-8 ####[facility]ORATORYCLIA [id number] [place] [address] [place] Platelets (Bld) [#/Vol] 309 10*3/uL Normal 150-400 [facility] Comment on above: Order Comment: Speci men Type: BLOOD SPECIMENOrdering Facility: [facility] Address: [address] [place] [address] Performed By: #### 5 7021-8 ####[facility] LABORATORYCLIA [id number] [place] [address] [place] RBC (Bld) [#/Vol] 4.87 10*6/uL Normal 3.90-5.20 [facility] Comment on above: Order Comment: Speci men Type: BLOOD SPECIMENOrdering Facility: [facility] Address: [address] [place] [address] Performed By: #### 5 7021-8 ####[facility]ORATORYCLIA [id number] [place] [address] [place] WBC (Bld) [#/Vol] 11.60 10*3/uL High 3.70-11.00 [facility] Comment on above: Order Comment: Speci men Type: BLOOD SPECIMENOrdering Facility: [facility] Address: [address] [place] [address] Performed By: #### 5 7021-8 ####[facility] LABORATORYCLIA [id number] [place] [address] [facility] CNDSon 01-03-2024 CNDS HNO ID: [id number] Author: ZAC HENAO MD Service: Hospital Medicine Author Type: Physician Type: Discharge Summary Filed: 01/03/2024 10:21 Note Text: DISCHARGE SUMMARY PATIENT NAME: Cyndee Vital Code Status: Not on file Highest Readmission Risk Score: 16 The 30 day readmissions risk score is derived from an internally validated risk model which evaluates patient level characteristics, utilization history, medication orders and lab results up until the day of discharge. Patients with a score of 40 or above are considered highest risk for readmission. Specific patient level drivers will be listed at the bottom of the summary. Admission Information Admission Information ADMIT DATE: 01/03/2024 DISCHARGE DATE: 01/03/2024 MY DOCTORS AND MEDICAL TEAM: My Main Hospital Doctor: Nick Torrez MD Primary Care Provider: Emi Cook APRN.SECOND CRUSHER My Medical Team Members: Treatment Team: Attending Provider: Nick Torrez MD MY CONDITION AT DISCHARGE: Stable REASON I WAS IN THE HOSPITAL: Back pain SUMMARY OF WHAT HAPPENED WHILE I WAS IN THE HOSPITAL: Patient was admitted to the hospital for evaluation of abdominal/back pain. In the ED she underwent CTA chest and abdomen which was negative for any acute pathology or dissection. She does have history of chronic sciatic Pain and her symptoms were consistent with the same, she received doses of pain medications with improvement in her symptoms and at that time of discharge patient was pain-free. After talking to the daughter, patient seemed to be at baseline and was discharged home in stable condition with follow-up with PCP. Of note patient tested positive for COVID however her symptoms were present about 1 week ago and was completely asymptomatic with good oxygen saturation. Patient did not receive any treatment for the viral infection. OTHER PROBLEMS/DIAGNOSIS: Active Problems: Back pain Resolved Problems: * No resolved hospital problems. * OPERATIONS PERFORMED WHILE IN THE HOSPITAL: None IMPORTANT TEST/PROCEDURES: No procedures performed TEST RESULTS NOT AVAILABLE AT THIS TIME: No pending results Discharge Disposition Discharge Disposition: Home With Self Care Activity When You Leave the Hospital Resume pre-hospital activity Diet Instructions Resume your pre-hospital diet Follow Up Appointments Follow-Up Appointment Post discharge follow up and back pain. When: In 1 week Patient/Parents to call for appointment?: Yes Emi Cook, FIELD CROP TECHNICAL OFFICER.SECOND CRUSHER [phone] [address] [facility] [address] [facility] [address] PCP Requested Referral Additional Provider to Provider Information: No notes on file Active Hospital Problems as of 01/03/2024 Noted - Resolved POA Hospital Back pain 01/03/2024 - Present Unknown Resolved Hospital Problems as of 01/03/2024 None Transitions of Care Critical Issues: CHURCH MEDICATION CHANGES: none LABS AND PROCEDURES PENDING AT DISCHARGE: No pending results. FOLLOW-UP APPOINTMENTS ALREADY SCHEDULED WITH A [facility] PROVIDER: No future appointments. ALLERGIES No Known Allergies DISCHARGE MEDICATION: Medication List CONTINUE taking these medications aspirin, enteric coated 81 mg EC tablet Commonly known as: ASPIRIN, ENTERIC COATED Take 1 tablet by mouth once daily. atorvastatin 40 mg tablet Commonly known as: LIPITOR Take 1 tablet by mouth daily at bedtime. donepezil 10 mg tablet Commonly known as: ARICEPT metoprolol succinate ER 25 mg 24 hr tablet Commonly known as: TOPROL XL Take 1 tablet by mouth twice daily. MULTI VITAMIN ORAL Discharge Physical Exam: VITAL SIGNS: BP 161/74 Pulse 55 Temp 36.5 ?C (97.7 ?F) (Oral) Resp 18 Ht 155 cm (5' 1.02") Wt 58.1 kg (128 lb 1.4 oz) SpO2 93% BMI 24.18 kg/m? General : No distress , alert and oriented times 1-2 Oral : oral mucosa moist, no ulcers Eyes: PERRLA Neck - no JVD Respiratory : b/l equal breath sounds CVS - S1,S2 normal , no murmer heard Abdomen :soft non tender, BS active Extremities : no leg edema Neuro : cognitive impairment present, no motor or sensory deficit Pulses - 2+ radial, 2+carotid The patient's risk for 30-day readmission is determined using the following contributing factors: Pt variables contributing to increased readmission risk: 23 Most Recent BUN Result 11 Active Medication Orders 9.4 First Resulted Calcium During Admission 1 Previous ED Visit (6 mos.)? 1 Number of Previous ED Visits (6 mos.) 1 Insurance - Medicare 1 Discharge Disposition - Home 1 Active Anticoagulant 1 Barriers to Health Literacy Identified Plan of care discussed with Provider, RN, Patient I have performed the egix-dy-gxpj and relevant services for a total of < 30 minutes. SIGNATURE: Zac Henao MD DATE: January 03, 2024 TIME: 10:20 AM Normal [facility] CRP SerPl-mCncon 01-03-2024 CRP [Mass/Vol] mg/L Normal <0.9 [facility] Comment on above: Order Comment: Speci men Type: BLOOD SPECIMENOrdering Facility: [facility] Address: [address] [place], [place] [address] [address] Performed By: #### 1 988-5, 2777-1, [id number], 86919-4 ####[facility] [id number] [place], [place] [id number] [place] [address] CT BRAIN WO IVCONon 01-03-20 CT BRAIN WO IVCON * * *Final Report* * * DATE OF EXAM: Jan 03 2024 4:59AM [facility] [address]504 - CT BRAIN WO IVCON / PROCEDURE REASON: Encephalitis * * * * Physician Interpretation * * * * EXAMINATION: CT BRAIN WO IVCON CLINICAL HISTORY: Encephalitis. Confusion. TECHNIQUE: Serial axial images without IV contrast were obtained from the vertex to the foramen magnum. MQ: CTBWO_3 CT Radiation dose: Integrated Dose-Length Product (DLP) for this visit = 748.91 mGy*cm CT Dose Reduction Employed: Automated exposure control (AEC) COMPARISON: None. RESULT: Post-operative change: None. Acute change: No evidence of an acute infarct or other acute parenchymal process. Hemorrhage: No evidence of acute intracranial hemorrhage. ECASS hemorrhagic transformation score: Not Applicable Mass Lesion / Mass Effect: There is no evidence of an intracranial mass or extraaxial fluid collection. No significant mass effect. Chronic change: Scattered patchy foci of low attenuation are present within supratentorial white matter which is a nonspecific finding but likely represents mild microvascular ischemia. Parenchyma: There is mild generalized volume loss. The brain parenchyma is otherwise within normal limits for age. Ventricles: Ventricular enlargement concordant with the degree of parenchymal volume loss. Paranasal sinuses and skull base: The visualized paranasal sinuses are grossly clear. The skull base and imaged soft tissues are unremarkable. Motor Vehicle Field Representative (topogram) images: No additional findings. IMPRESSION: No acute intracranial abnormality identified Mild chronic intracranial changes as described Speech Language Pathology Assistant: TSOIN Transcribe Date/Time: Jan 03 2024 5:23A Dictated by : CHUY DAVIS MD This examination was interpreted and the report reviewed and electronically signed by: CHUY DAVIS MD on Jan 03 2024 5:26AM EST [id number] [facility] CTA ABD/PELV W IVCONon 01-03 CTA ABD/PELV W IVCON * * *Final Report* * * DATE OF EXAM: Jan 03 2024 5:34AM [facility] 0466 - CTA ABD/PELV W IVCON / PROCEDURE REASON: Aortic dissection suspected * * * * Physician Interpretation * * * * EXAMINATION: CTA CHEST (GATED) WO/W IVCON, CTA ABD/PELV W IVCON HISTORY: Aortic dissection suspected COMPARISON: None TECHNIQUE: CT angiography of the chest, abdomen and pelvis was performed with multiplanar reformations. Dose modulation, iterative reconstruction, and/or weight based adjustment of the mA/kV was utilized to reduce the radiation dose to as low as reasonably achievable. Multiplanar and Maximum intensity projection reformations were performed on a separate postprocessing workstation. All data sets were reviewed. FINDINGS: CARDIOVASCULAR: Heart: Unremarkable Aorta: Scattered atherosclerosis. Three vessel aortic arch No aneurysm or dissection. Pulmonary: Not enlarged Celiac: Unremarkable SMA: Unremarkable Renal: Patent, bilateral single renal arteries observed CHARLY: Unremarkable Common Iliac: Visualized portions unremarkable CHEST: Mediastinum: No adenopathy, abnormal fluid or gas collections. Lungs: Pulmonary hyperinflation. Linear scarring and scarring in the posterior basal right lower lobe. No focal opacity. Airways: Unremarkable. Pleura: No pleural effusion or pneumothorax ABDOMEN: Liver: 24 mm right hepatic lobe cyst. Gallbladder: Unremarkable Biliary: Unremarkable Pancreas: Unremarkable Spleen: Unremarkable Adrenals: Unremarkable Kidneys: Unremarkable GI/ Bowel: Stomach and small bowel appear unremarkable. Diverticulosis without wall thickening or regional inflammation.d fecal ball versus polyp in the ascending colon measuring up to 31 mm axial series image 150 Unremarkable appendix. PELVIS: Bladder: Partially distended. Reproductive: Hysterectomy. OTHER: Peritoneum/ Retroperitoneum: No adenopathy, free air or free fluid. Bones: Degenerative changes Other: Unremarkable IMPRESSION: No acute aortic pathology No acute chest pathology 3 cm fecal ball versus polyp in the ascending colon. Please consider direct visualization as necessary. Diverticulosis Speech Language Pathology Assistant: TOSIN Transcribe Date/Time: Jan 03 2024 5:44A Dictated by : SATYA SINGH MD This examination was interpreted and the report reviewed and electronically signed by: SATYA SINGH MD on Jan 03 2024 5:52AM EST [id number] [facility] CTA CHEST (GATED) WO/W IVCON on 01-03-2024 CTA CHEST (GATED) WO/W IVCON * * *Final Report* * * DATE OF EXAM: Jan 03 2024 5:34AM [facility] 0126 - CTA CHEST (GATED) WO/W IVCON / PROCEDURE REASON: Aortic dissection suspected * * * * Physician Interpretation * * * * EXAMINATION: CTA CHEST (GATED) WO/W IVCON, CTA ABD/PELV W IVCON HISTORY: Aortic dissection suspected COMPARISON: None TECHNIQUE: CT angiography of the chest, abdomen and pelvis was performed with multiplanar reformations. Dose modulation, iterative reconstruction, and/or weight based adjustment of the mA/kV was utilized to reduce the radiation dose to as low as reasonably achievable. Multiplanar and Maximum intensity projection reformations were performed on a separate postprocessing workstation. All data sets were reviewed. FINDINGS: CARDIOVASCULAR: Heart: Unremarkable Aorta: Scattered atherosclerosis. Three vessel aortic arch No aneurysm or dissection. Pulmonary: Not enlarged Celiac: Unremarkable SMA: Unremarkable Renal: Patent, bilateral single renal arteries observed CHARLY: Unremarkable Common Iliac: Visualized portions unremarkable CHEST: Mediastinum: No adenopathy, abnormal fluid or gas collections. Lungs: Pulmonary hyperinflation. Linear scarring and scarring in the posterior basal right lower lobe. No focal opacity. Airways: Unremarkable. Pleura: No pleural effusion or pneumothorax ABDOMEN: Liver: 24 mm right hepatic lobe cyst. Gallbladder: Unremarkable Biliary: Unremarkable Pancreas: Unremarkable Spleen: Unremarkable Adrenals: Unremarkable Kidneys: Unremarkable GI/ Bowel: Stomach and small bowel appear unremarkable. Diverticulosis without wall thickening or regional inflammation.d fecal ball versus polyp in the ascending colon measuring up to 31 mm axial series image 150 Unremarkable appendix. PELVIS: Bladder: Partially distended. Reproductive: Hysterectomy. OTHER: Peritoneum/ Retroperitoneum: No adenopathy, free air or free fluid. Bones: Degenerative changes Other: Unremarkable IMPRESSION: No acute aortic pathology No acute chest pathology 3 cm fecal ball versus polyp in the ascending colon. Please consider direct visualization as necessary. Diverticulosis Speech Language Pathology Assistant: TOSIN Transcribe Date/Time: Jan 03 2024 5:44A Dictated by : SATYA SINGH MD This examination was interpreted and the report reviewed and electronically signed by: SATYA SINGH MD on Jan 03 2024 5:52AM EST [id number] Normal [facility] Comprehensive metabolic 2000 panelon 01-03-2024 Albumin [Mass/Vol] 4.5 g/dL Normal 3.9-4.9 [facility] Comment on above: Order Comment: Speci men Type: BLOOD SPECIMEN [facility] Address: [address] [place] [address] Performed By: #### 3 040-3, 02512-1, 49953-0, 19167-6, [id number] #### [facility] CLIA [id number] [address] [place] [address] [place] ALP [Catalytic activity/Vol] 127 U/L High 34-123 [facility] Comment on above: Order Comment: Speci men Type: BLOOD SPECIMEN [facility] Facility: [facility] Address: [address] [place] [address] Performed By: #### 3 040-3, 29620-5, 85493-7, 81869-0, [id number] #### [facility] CLIA [id number] [address] [place] [address] [place] ALT [Catalytic activity/Vol] 24 U/L Normal 7-38 [facility] Comment on above: Order Comment: Speci men Type: BLOOD SPECIMEN [facility]: [facility] Address: [address] [place] [address] Performed By: #### 3 040-3, 18027-1, 79018-4, 36332-8, [id number] #### [facility] CLIA [id number] [address] [place] [address] [place] Anion gap [Moles/Vol] 14 mmol/L Normal 9-18 [facility] Comment on above: Order Comment: Speci men Type: BLOOD SPECIMEN [facility] Address: [address] [place] [address] Performed By: #### 3 040-3, 59594-9, 23809-0, 68884-0, [id number] #### [facility] CLIA [id number] [address] [place] [address] [place] AST [Catalytic activity/Vol] 21 U/L Normal 13-35 [facility] Comment on above: Order Comment: Speci men Type: BLOOD SPECIMEN [facility] Address: [address] [place] [address] Performed By: #### 3 040-3, 85033-0, 83498-0, 11881-1, [id number] #### [facility] CLIA [id number] [address] [place] [address] [place] Bilirubin [Mass/Vol] 0.4 mg/dL Normal 0.2-1.3 [facility] Comment on above: Order Comment: Speci men Type: BLOOD SPECIMEN [facility] Address: [address] [place] [address] Performed By: #### 3 040-3, 74177-2, 20802-5, 33487-1, [id number] #### [facility] CLIA [id number] [address] [place] [address] [place] Calcium [Mass/Vol] 9.4 mg/dL Normal 8.5-10.2 [facility] Comment on above: Order Comment: Speci men Type: BLOOD SPECIMEN [facility] Address: [address] [place] [address] Performed By: #### 3 040-3, 86785-1, 26808-8, 96487-9, [id number] #### [facility] CLIA [id number] [address] [place] [address] [place] Chloride [Moles/Vol] 102 mmol/L Normal 97-105 [facility] Comment on above: Order Comment: Speci men Type: BLOOD SPECIMEN [facility]: [facility] Address: [address] [place] [address] Performed By: #### 3 040-3, 99053-8, 35094-6, 80664-4, [id number] #### [facility] CLIA [id number] [address] [place] [address] [place] CO2 [Moles/Vol] 25 mmol/L Normal 22-30 [facility] Comment on above: Order Comment: Jessica shearer Type: BLOOD SPECIMEN [facility]: [facility] Address: [address] [place] [address] Performed By: #### 3 040-3, 21689-5, 82310-2, 45650-0, [id number] #### [facility] CLIA [id number] [address] Creatinine [Mass/Vol] 0.81 mg/dL Normal 0.58-0.96 [facility] Comment on above: Order Comment: Jessica shearer Type: BLOOD SPECIMEN [facility] Address: [address] [place] [address] Performed By: #### 3 040-3, 26835-1, 06345-9, 33260-5, [id number] #### [facility] CLIA [id number] [address] Creatinine and Glomerular filtration rate.predicted panel (S/P/Bld) 75 mL/min/1.73m??? Normal >=60 [facility] Comment on above: Order Comment: Jessica shearer Type: BLOOD SPECIMEN [facility] Address: [address] [place] [address] Result Comment: Tanja mated Glomerular Filtration Rate (eGFR) is calculated using the 2020 CKD-EPI creatinine equation. This equation utilizes serum creatinine, sex, and age as parameters. The creatinine assay has traceable calibration to isotope dilution-mass spectrometry. Refer to KDIGO guidelines for clinical interpretation. In patients with unstable renal function, e.g. those with acute kidney injury, the eGFR may not accurately reflect actual GFR. Performed By: #### 3 040-3, 40145-7, 30288-0, 57475-4, [id number] #### [facility] CLIA [id number] [address] [place] Glucose [Mass/Vol] 158 mg/dL High 74-99 [facility] Comment on above: Order Comment: Jessica shearer Type: BLOOD SPECIMEN [facility] Address: [address] [place] [id number] Result Comment: The [place] Diabetes Association (ADA) provides guidance for cutoff values for fasting glucose and random glucose. The ADA defines fasting as no caloric intake for at least 8 hours. Fasting plasma glucose results between 100 to 125 mg/dL indicate increased risk for diabetes (prediabetes). Fasting plasma glucose results greater than or equal to 126 mg/dL meet the criteria for diagnosis of diabetes. In the absence of unequivocal hyperglycemia, results should be confirmed by repeat testing. In a patient with classic symptoms of hyperglycemia or hyperglycemic crisis, random plasma glucose results greater than or equal to 200 mg/dL meet the criteria for diagnosis of diabetes. Reference: Standards of Medical Care in Diabetes 2016, [place] Diabetes Association. Diabetes Care. 2016.39(Suppl 1). Performed By: #### 3 040-3, 61485-6, 24967-8, 78945-7, [id number] #### [facility] CLIA [id number] [address] [place] [address] [place] Potassium [Moles/Vol] 3.7 mmol/L Normal 3.7-5.1 [facility] Comment on above: Order Comment: Speci men Type: BLOOD SPECIMEN [facility] Address: [address] [place] [address] Performed By: #### 3 040-3, 10513-7, 98207-6, 65466-9, [id number] #### [facility] CLIA [id number] [address] [place] [address] [place] Protein [Mass/Vol] 7.9 g/dL Normal 6.3-8.0 [facility] Comment on above: Order Comment: Speci men Type: BLOOD SPECIMEN [facility] Address: [address] [place] [place] [id number] Performed By: #### 3 040-3, 55096-6, 03591-0, 69955-5, [id number] #### [facility] CLIA [id number] [address] [place] [address] [place] Sodium [Moles/Vol] 141 mmol/L Normal 136-144 [facility] Comment on above: Order Comment: Speci men Type: BLOOD SPECIMEN [facility] Address: [address] [place] [address] Performed By: #### 3 040-3, 29829-3, 18811-5, 86671-7, [id number] #### [facility] CLIA [id number] [address] Urea nitrogen [Mass/Vol] 23 mg/dL High 7- [facility] Comment on above: Order Comment: Speci men Type: BLOOD SPECIMEN [facility] Address: [address] [place] [id number] Performed By: #### 3 040-3, 01112-0, 97577-1, 12640-3, [id number] #### [facility] CLIA [id number] [address] ECG COMPLETEon 01-03-2024 ECG COMPLETE Ventricular Rate : 5 1 BPM Atrial Rate : 51 BPM P-R Interval : 138 ms QRS Duration : 78 ms Q-T Interval : 432 ms QTC Calculation(Bazett) : 398 ms Calculated P [place] : 49 degrees Calculated R [place] : -9 degrees Calculated T [place] : 59 degrees SINUS BRADYCARDIA NONSPECIFIC ST ABNORMALITY ABNORMAL ECG no STEMI Confirmed by MD VUONG EDWARD.S ([id number]), non linear editor CHUY INFANTE ([id number]) on 01/04/2024 7:14:53 AM NAME : CYNDEE VITAL PID : [id number] : 1945 Gender : Female Race : ORD : [id number] Procedure Date : Jan 03 2024 04:14:58 Edit Date : Jan 04 2024 07:14:56 Diagnosis: SINUS BRADYCARDIA NONSPECIFIC ST ABNORMALITY ABNORMAL ECG no STEMI Confirmed by MD VUONG EDWARD.S ([id number]), non linear editor CHUY INFANTE ([id number]) on 01/04/2024 7:14:53 AM Test Reason : Chest Pain Location : 1 : ER 0203 Overread By : MD VUONG EDWARD.S Edited By : CHUY INFANTE Referred By : , Acquired by : PA [id number], [facility] ED PROV NOTEon 01-03-2024 ED PROV NOTE HNO ID: [id number] Author: ELIEZER VUONG MD Service: Emergency Medicine Author Type: Physician Type: ED Provider Notes Filed: 01/03/2024 06:12 Note Text: ED Provider Note Patient Name: Cyndee Vital : 1945 SERVICE DATE: 01/03/24 History Patient presents with: Abdominal Pain: Pt states she had sudden onset of diffuse abdominal pain. Pt appears slightly confused. Ms. Vital is a 78-year-old female with history of SVT and hyperlipidemia and PVCs presenting now with intense abdominal discomfort earlier which woke her up from rest. She is also mildly confused. She now complains of mild left-sided abdominal discomfort and of back discomfort. EMS noted that her blood pressure was significantly higher in her right arm than her left. She has no unilateral weakness or numbness or trouble speaking or swallowing. She does not know the year, but does know she is 78 and that it is December. PAST MEDICAL HISTORY Diagnosis Date PSVT (paroxysmal supraventricular tachycardia) (HCC) 01/25/2021 Pure hypercholesterolemia 10/14/2019 PVC (premature ventricular contraction) 01/25/2021 PAST SURGICAL HISTORY Procedure Laterality Date NONE FAMILY HISTORY Problem Relation Age of Onset Cancer Mother ovarian Social History Tobacco Use Smoking status: Never Smokeless tobacco: Never Vaping Use Vaping Use: Never used Substance and Sexual Activity Alcohol use: Yes Comment: occasional Drug use: Never Sexual activity: Not on file ALLERGIES No Known Allergies Review of Systems Constitutional: Negative for chills and fever. HENT: Negative for ear pain, rhinorrhea and sore throat. Respiratory: Negative for cough and shortness of breath. Cardiovascular: Negative for chest pain and leg swelling. Gastrointestinal: Positive for abdominal pain. Negative for diarrhea, nausea and vomiting. Genitourinary: Negative for dysuria, flank pain, frequency and hematuria. Musculoskeletal: Negative for back pain. Skin: Negative for rash. Neurological: Negative for speech difficulty, weakness, light-headedness, numbness and headaches. Psychiatric/Behavioral: Positive for confusion. Negative for hallucinations and suicidal ideas. Physical Exam Vitals BP Pulse Temp Temp src Resp SpO2 Weight Height -- -- -- -- -- -- -- -- Physical Exam Vitals and nursing note reviewed. Constitutional: General: She is not in acute distress. Appearance: She is well-developed. HENT: Head: Normocephalic and atraumatic. Eyes: Pupils: Pupils are equal, round, and reactive to light. Neck: Trachea: No tracheal deviation. Cardiovascular: Rate and Rhythm: Normal rate. Heart sounds: No murmur heard. No friction rub. No gallop. Pulmonary: Effort: Pulmonary effort is normal. No respiratory distress. Breath sounds: Normal breath sounds. No wheezing or rales. Abdominal: General: Bowel sounds are normal. There is no distension. Palpations: Abdomen is soft. Tenderness: There is abdominal tenderness. There is no guarding or rebound. Comments: Mild left lower quadrant tenderness Musculoskeletal: General: Normal range of motion. Cervical back: Normal range of motion and neck supple. Lymphadenopathy: Cervical: No cervical adenopathy. Skin: General: Skin is warm and dry. Findings: No erythema. Neurological: Mental Status: She is alert. Cranial Nerves: No cranial nerve deficit. Motor: No abnormal muscle tone. Comments: Oriented to self, situation, not to year, does know the month and her age, no aphasia or dysarthria, no cranial nerve deficit, vision grossly intact, no unilateral facial droop or weakness or numbness in either arm or leg or pronator drift Psychiatric: Behavior: Behavior normal. Thought Content: Thought content normal. Judgment: Judgment normal. Diagnostic Testing ED Labs Ordered and Reviewed - No data to display Procedures ED Course / Clinical Impression ED Course as of 01/03/24 0611 Eliezer Vuong's Documentation Sun Jan 03, 2024 0418 ECG sinus bradycardia @ 51 bpm no STEMI Clinical Impressions as of 01/03/24 0611 COVID-19 Delirium Abdominal pain, unspecified abdominal location COVID-19 test performed per [facility] [place] policy for suspected COVID community exposure. MDM / Disposition / Plan Ms. Vital is a 78-year-old female presenting today with abdominal discomfort as well as mild confusion. Will obtain CT of her brain as well as CTA of her chest and abdomen and pelvis given that she had a BP differential and route here for EMS. Will reassess after workup.. History and Record Review Clinical information obtained from an independent historian. History obtained from or confirmed by: EMS personnel. Differential Diagnoses - Diverticulitis with or without local complication such as perforation or abscess, UTI, electrolyte disarray, anemia, other abdominal pathology is more likely for the following (more content not included)... Normal [facility] FLUABV+SARS-CoV-2+RSV Pnl Re sp ROSEMARY+probeon 01-03-2024 FLUABV+SARS-CoV-2+RSV Pnl Resp ROSEMARY+probe COVID 19 RESULT: Detected The method used is RT-PCR or an equivalent NAAT method. Reference Range(the expected result in uninfected individuals): Not detected INFLUENZA A PCR: Not detected INFLUENZA B PCR: Not detected RSV PCR: Not detected Abnormal [facility] Comment on above: Performed By: #### 9 5941-1 ####[facility]ORYCLIA [id number] [place] [address] [place] HIGH SENSITIVITY TROPONIN T (INITIAL)on 01-03-2024 Troponin T.cardiac High sensitivity method [Mass/Vol] 6 ng/L Normal <12 [facility] Comment on above: Order Comment: Jessica shearer Type: BLOOD SPECIMENOrdering Facility: [facility] Address: [address] [place] [address] Result Comment: When assessing risk for acute coronary syndromes: In patients undergoing blood draw greater than or equal to 2 hours from symptom onset, with history of very low to moderate risk and non-ischemic ECG, an initial hs-Troponin T less than 12 ng/L AND a 1 hour delta hs-Troponin T less than 3 ng/L should be considered very low risk for 30 day MACE. Performed By: #### 3 040-3, 56388-6, 69935-7, 80502-3, [id number] ####[facility]ATORYCLIA [id number] [place] [id number] [place] HIGH SENSITIVITY TROPONIN T (SECOND)on 01-03-2024 Troponin T.cardiac High sensitivity method [Mass/Vol] 7 ng/L Normal <12 [facility] Comment on above: Order Comment: Jessica shearer Type: BLOOD SPECIMENOrdering Facility: [facility] Address: [address] [place] [address] Result Comment: When assessing risk for acute coronary syndromes: In patients undergoing blood draw greater than or equal to 2 hours from symptom onset, with history of very low to moderate risk and non-ischemic ECG, an initial hs-Troponin T less than 12 ng/L AND a 1 hour delta hs-Troponin T less than 3 ng/L should be considered very low risk for 30 day MACE. Performed By: #### 1 988-5, 2777-1, [id number], ####[facility]ATORYCLIA [id number] [place] [address] [place] Lipase SerPl-cCncon 01-03-20 24 Lipase [Catalytic activity/Vol] 52 U/L Normal 16-61 [facility] Comment on above: Order Comment: Speci men Type: BLOOD SPECIMENOrdering Facility: [facility] Address: [address] [place] [address] Performed By: #### 3 040-3, 33416-8, 88221-9, 29887-9, [id number] ####[facility]ORYCLIA [id number] [address] STATES [facility] Magnesium SerPl-mCncon 01-03 Magnesium [Mass/Vol] 2.0 mg/dL Normal 1.7-2.3 [facility] Comment on above: Order Comment: Speci men Type: BLOOD SPECIMENOrdering Facility: [facility] Address: [address] [place] [address] Performed By: #### 1 988-5, 2777-1, [id number], ####[facility]ATORYCLIA [id number] [address] Magnesium [Mass/Vol] 2.2 mg/dL Normal 1.7-2.3 [facility] Comment on above: Order Comment: Speci men Type: BLOOD SPECIMENOrdering Facility: [facility] Address: [address] [place] [address] Performed By: #### 3 040-3, 16777-0, 17164-2, 36102-0, [id number] ####[facility]ORYCLIA [id number] [place] [address] [place] NT-proBNP SerPl-mCncon 01-03 Natriuretic peptide.B prohormone N-Terminal [Mass/Vol] 407 pg/mL Normal <450 [facility] Comment on above: Order Comment: Speci men Type: BLOOD SPECIMENOrdering Facility: [facility] Address: [address] [place] [address] Performed By: #### 3 040-3, 73876-5, 89978-7, 66346-4, [id number] ####[facility]ORYCLIA [id number] [place] [address] [place] PT panel Coag (PPP)on 2023 INR Coag (PPP) [Relative time] 1.0 {INR} Normal 0.9-1.3 [facility] Comment on above: Order Comment: Speci men Type: BLOOD SPECIMENOrdering Facility: [facility] Address: [address] [place] [address] Result Comment: Gege min K Antagonist (VKA) Therapeutic Range: INR 2 to 3 (Target INR of 2.5) Note: For patients treated with VKA drugs, such as warfarin, the [employer] 2012 Guideline recommends a therapeutic INR range of 2 to 3 (target INR of 2.5). This recommendation includes high-risk patients with antiphospholipid syndrome with previous arterial or venous thromboembolism, current-generation mechanical or bioprosthetic aortic heart valve replacement. Note: Patients with mechanical aortic valve replacement and additional risk factors for thromboembolic events (atrial fibrillation, previous thromboembolism, LV dysfunction, hypercoagulable conditions) or an older generation mechanical AVR (i.e., ball in-Cage) or any mechanical MVR should have a INR therapeutic range of 2.5 to 3.5 (target INR of 3). Mary GH, et al. Chest 2012, 141:7S-47S Sunshine RA, et al. [facility] 2017, 70: 252-289 Performed By: #### 3 4528-0, 42416-8 ####[facility]ORYCLIA [id number] [place] [id number] [place] PT Coag (PPP) [Time] 10.8 s Normal 9.7-13.0 [facility] Comment on above: Order Comment: Jessica shearer Type: BLOOD SPECIMENOrdering Facility: [facility] Address: [address] [place] [address] Performed By: #### 3 4528-0, 72165-2 ####[facility]ORYCLIA [id number] [address] [place] Phosphate SerPl-mCncon 01-03 Phosphate [Mass/Vol] 2.9 mg/dL Normal 2.7-4.8 [facility] Comment on above: Order Comment: Speci men Type: BLOOD SPECIMENOrdering Facility: [facility] Address: [address] [place] [address] Performed By: #### 1 988-5, 2777-1, [id number], 36108-6 ####[facility]ORYCLIA [id number] [address] Urinalysis complete panel (U )on 01-03-2024 Bilirubin Ql (U) Negative Normal Negative [facility] Comment on above: Order Comment: Speci men Type: URINE SPECIMENOrdering Facility: [facility] Address: [address] [place] [address] Performed By: #### 2 4356-8 ####[facility]ATORYCLIA [id number] [address] [place] Clarity (Unsp spec) Clear Normal Clear [facility] Comment on above: Order Comment: Speci men Type: URINE SPECIMENOrdering Facility: [facility] Address: [address] [place] [address] Performed By: #### 2 4356-8 ####[facility]ORYCLIA [id number] [address] Color (U) Yellow Normal Yellow [facility] Comment on above: Order Comment: Speci men Type: URINE SPECIMENOrdering Facility: [facility] Address: [address] [place] [address] Performed By: #### 2 4356-8 ####[facility]ORYCLIA [id number] [address] [place] Glucose Test strip (U) [Mass/Vol] Trace Abnormal Negative [facility] Comment on above: Order Comment: Speci men Type: URINE SPECIMENOrdering Facility: [facility] Address: [address] [place] [address] Performed By: #### 2 4356-8 ####[facility]ATORYCLIA [id number] [place] [address] [place] Hemoglobin Ql (U) Trace Abnormal Negative [facility] Comment on above: Order Comment: Speci men Type: URINE SPECIMENOrdering Facility: [facility] Address: [address] [place] [address] Performed By: #### 2 4356-8 ####[facility]ATORYCLIA [id number] [place] [address] [place] Ketones Ql (U) Negative Normal Negative [facility] Comment on above: Order Comment: Speci men Type: URINE SPECIMENOrdering Facility: [facility] Address: [address] [place] [address] Performed By: #### 2 4356-8 ####[facility]ORYCLIA [id number] [address] [place] Leukocyte esterase Test strip Ql (U) Negative Normal Negative [facility] Comment on above: Order Comment: Speci men Type: URINE SPECIMENOrdering Facility: [facility] Address: [address] [place] [address] Performed By: #### 2 4356-8 ####[facility]ORYCLIA [id number] [place] [address] [place] Nitrite Ql (U) Negative Normal Negative [facility] Comment on above: Order Comment: Speci men Type: URINE SPECIMENOrdering Facility: [facility] Address: [address] [place] [address] Performed By: #### 2 4356-8 ####[facility]ATORYCLIA [id number] [place] [address] [place] pH (U) 7.0 [pH] Normal 5.0-8.0 [facility] Comment on above: Order Comment: Speci men Type: URINE SPECIMENOrdering Facility: [facility] Address: [address] [place] [address] Performed By: #### 2 4356-8 ####[facility]ORYCLIA [id number] [place] [address] [place] Protein (U) [Mass/Vol] Negative Normal Negative [facility] Comment on above: Order Comment: Speci men Type: URINE SPECIMENOrdering Facility: [facility] Address: [address] [place] [address] Performed By: #### 2 4356-8 ####[facility]ATORYCLIA [id number] [place] [address] [place] RBC LM.HPF (Urine sed) [#/Area] 0-3 /HPF Normal 0-3 /HPF [facility] Comment on above: Order Comment: Speci men Type: URINE SPECIMENOrdering Facility: [facility] Address: [address] [place] [address] Performed By: #### 2 4356-8 ####[facility]ATORYCLIA [id number] [place] [address] [place] Specific gravity (U) [Rel density] 1.010 Normal 1.005-1.030 [facility] Comment on above: Order Comment: Speci men Type: URINE SPECIMENOrdering Facility: [facility] Address: [address] [place] [address] Performed By: #### 2 4356-8 ####[facility]ATORYCLIA [id number] [address] Urobilinogen Ql (U) 0.2 EU/dL Normal 0.2-1.0 EU/dL [facility] Comment on above: Order Comment: Speci men Type: URINE SPECIMENOrdering Facility: [facility] Address: [address] [place] [address] Performed By: #### 2 4356-8 ####[facility]ATORYCLIA [id number] [address] [place] [facility] WBC LM.HPF (Urine sed) [#/Area] 0-5 /HPF Normal 0-5 /HPF [facility] Comment on above: Order Comment: Speci men Type: URINE SPECIMENOrdering Facility: [facility] Address: [address] [place] [address] Performed By: #### 2 4356-8 ####[facility]ATORYCLIA [id number] [address] [place] aPTT PPPon 01-03-2024 aPTT Coag (PPP) [Time] 21.9 s Low 23.0-32.4 [facility] Comment on above: Order Comment: Speci men Type: BLOOD SPECIMENOrdering Facility: [facility] Address: [address] [place] [address] Performed By: #### 3 4528-0, 07507-2 ####[facility]ATORYCLIA [id number] [address] [place] NM PET/CT BRAIN PLAQUE IMAGI NGon 09-24-2023 [facility] Patient Instructionson 04-13 Cargo Worker Authentication Interface Message Text Sunscreen Recommendations: Recommend sunscreen with Zinc Oxide (in ingredient list on back): Small stick - looks like antiperspirant - (CeraVe, Neutrogena, [employer] brand) OR lotion (Neutrogena's pure and free liquid-- pure screen-- or CeraVe face AM moisturizer that has Zinc oxide) Newer Options: iMah PERKINS SPF 36 tinted sunscreen with zinc oxide and iron oxide Cetaphil Sheer Mineral Liquid Face SPF 50 Coppertone's Pure and Simple Zinc oxide Normal [facility] [facility] Progress Noteson 04-13-2023 Cargo Worker Authentication Interface Message Text Vitals not obtained per provider's instructions. Patient was identified by name and date of . Alvaro Collazo Why are you seeing the trust officer (doctor) today? mole What specific location on your body is the problem located? neck How long ago did this start? 6 months Do you have any open sores that won't heal?no ROS: No other skin concerns. Do you have any allergies to medications? no Have you been told to take antibiotic prior to routine dental work? no If yes why? MEDICAL HISTORY: Patient has a history of the following medical Conditions/Devices: Pacemaker no Defibrillator no Cancer (non skin) no Skin cancer no Current no HIV/AIDS no HepC no Any other medical issues not listed in your medical record ( use .PMHX AND .PROB) No past medical history on file. Any other medical conditions not listed in your record: no Is current medication list up to date? Yes on file Family history of skin cancer? no Alcohol Use? yes Tobacco Use? no Normal [employer] Cargo Worker Authentication Interface Message Text ------- HISTORY OF PRESENT ILLNESS --- Visit Date/Time: 04/13/2023, 9:00 AM Patient: Cyndee Vital is a 77 year old White female Reason for Visit: skin lesions, New patient; Referring Provider: Self Patient Pt here today for skin lesions - Pt reports having a lesion on right neck that geriatric doctor asked to be inspected Patient has h/o the following medical conditions/devices: Pacemaker: No Defibrillator: No Cancer (non skin): No Skin cancer: No Current : No HIV/AIDS: No HepC: No No past medical history on file. There is no problem list on file for this patient. Current Outpatient Medications: donepezil (ARICEPT) 10 MG tablet, Take 1 Tablet by mouth., Disp: , Rfl: atorvastatin (LIPITOR) 40 mg tablet, Take 40 mg by mouth., Disp: , Rfl: memantine (NAMENDA) 10 MG tablet, , Disp: , Rfl: sertraline (ZOLOFT) 100 MG tablet, Take 100 mg by mouth daily., Disp: , Rfl: metoprolol (TOPROL-XL) 25 mg XL tablet, Take 25 mg by mouth 2 times daily., Disp: , Rfl: Not on File No FMHx skin cancer SHx: Alcohol Use? yes Tobacco Use? no PHYSICAL EXAM Pt sitting in NAD - Stuck on papule right neck close to submandibular - Hyperpigmented macules and papules, face, chest, back, arms, legs - No suspicious lesions buttocks, hands - Thin stuck on papules and plaques, posterior legs ASSESSMENT AND PLAN 1) Seborrheic Keratosis (SK) - Reassured pt. No treatment. If changes to call for evaluation. - AAD pamphlet given 2) Nevi/Ephelides/solar lentigines - None suspicious, reassured pt of benign nature of condition - Sunscreen recs given Follow up as needed SCRIBE ATTESTATION 04/13/2023, 9:31 AM. This note is prepared by Jimmy Plasencia acting as Scribe for Celina Levy MD. The scribe's documentation has been prepared under my direction and personally reviewed by me in its entirety. I confirm that the note above accurately reflects all work, treatment, procedures, and medical decision making performed by me, Celina Levy MD. Normal [facility] NM PET/CT BRAIN PLAQUE IMAGI NGon 02-19-2023 [facility] Absolute lymphocyte countOrd ered By: Emi Cook on 01-26-2023 Lymphocytes Auto (Unsp spec) [#/Vol] 1.61 10*3/uL 0.83-4.51 [facility] Basophil percentageOrdered B y: Emi Cook on 01-26-2023 Basophils/100 WBC (Bld) 0.6 % 0-1 [facility] Bilirubin [Mass/Vol] 0.50 mg/dL 0.20-1.00 [facility] Comment on above: For patients on eltr ombopag therapy, use of Dimension [place] TBIL is not recommended. Chloride [Moles/Vol] 112 mmol/L 98-107 [facility] Cholesterol [Mass/Vol] 144 mg/dL <200 [facility] Comment on above: <200 mg/dL Desirable 200-240 mg/dL Borderline >240 mg/dL High Risk Eosinophils/100 WBC (Bld) 3.0 % 0-5 [facility] Glucose [Mass/Vol] 107 mg/dL 74-106 [facility] Comment on above: Fasting Glucose resu lt from 100 to 125 mg/dL suggests IMPAIRED HOMEOSTASIS per A.D.A. criteria. Neutrophils (Bld) [#/Vol] 4.5 10*3/uL 2.0-7.7 [facility] Neutrophils/100 WBC (Bld) 63.8 % 47-70 [facility] Potassium [Moles/Vol] 3.6 mmol/L 3.5-5.1 [facility] Protein [Mass/Vol] 7.3 g/dL 6.4-8.2 [facility] Sodium [Moles/Vol] 145 mmol/L 136-145 [facility] Triglyceride [Mass/Vol] 221 mg/dL <199 [facility] Comment on above: The drugs N-Acetylcy steine and Metamizole may falsely depress this assay.Serum Triglycerides Reference Interval Normal <150 mg/dL Borderline high 150 - 199 mg/dL High 200 - 499 mg/dL Very High > or = 500 mg/dL WBC (Bld) [#/Vol] 7.0 10*3/uL 4.4-11.0 [facility] Blood erythrocytes count (nu mber/volume)Ordered By: Emi Cook on 01-26-2023 RBC (Bld) [#/Vol] 4.36 10*6/uL 4.2-5.4 [facility] Blood hemoglobin measurement (mass/volume)Ordered By: Emi Cook on 01-26-2023 Hemoglobin (Bld) [Mass/Vol] 13.4 g/dL 12.0-15.0 [facility] Blood lymphocytes/100 leukoc ytesOrdered By: Emi Cook on 01-26-2023 Lymphocytes/100 WBC (Bld) 23.0 % 19-41 [facility] Blood monocytes/100 leukocyt esOrdered By: Emi Cook on 01-26-2023 Monocytes/100 WBC (Bld) 9.3 % 0-10 [facility] Blood platelet mean volumeOr dered By: Emi Cook on 01-26-2023 Platelet mean volume (Bld) [Entitic vol] 10.8 fL 6.2-12.0 [facility] Determination of erythrocyte mean corpuscular volume (MCV)Ordered By: Emi Coko on 01-26-2023 MCV (RBC) [Entitic vol] 93.6 fL 81-99 [facility] Hematocrit Auto (Bld) [Volum e fraction]Ordered By: Emi Cook on 01-26-2023 Hematocrit (Bld) [Volume fraction] 40.8 % 37-47 [facility] Laboratory - Chemistry and C hemistry - challengeOrdered By: Emi Cook on 01-26-2023 ALP [Catalytic activity/Vol] 102 U/L 45-117 [facility] ALT [Catalytic activity/Vol] 23 U/L 13-56 [facility] CO2 [Moles/Vol] 27.0 mmol/L 21.0-32.0 [facility] Globulin (S) [Mass/Vol] 3.6 g/dL 2.2-4.2 [facility] Urea nitrogen/Creatinine [Mass ratio] 22.0 mg/mg 10-20 [facility] Laboratory - Hematology and Cell countsOrdered By: Emi Cook on 01-26-2023 Erythrocyte distribution width (RBC) [Entitic vol] 46.9 fL 35.1-43.9 [facility] Erythrocyte distribution width (RBC) [Ratio] 13.7 % 11.6-14.6 [facility] Immature granulocytes/100 WBC (Bld) 0.300 % 0.0-0.9 [facility] Comment on above: IG% - Immature Granu locytes (promyelocytes, myelocytes and metamyelocytes) > 1% indicates that a LEFT SHIFT is Present. MCH (RBC) [Entitic mass] 30.7 pg 27.0-32.0 [facility] Nucleated RBC/100 WBC (Bld) [Ratio] 0 % 0-5 [facility] MCHC Auto (RBC) [Mass/Vol]Or dered By: Emi Cook on 01-26-2023 MCHC (RBC) [Mass/Vol] 32.8 g/dL 32-36 [facility] No Panel InformationOrdered By: Emi Cook on 01-26-2023 Vitamin D 25-Hydroxy 12.5 ng/mL [facility] Comment on above: Vitamin D 25(OH) Sta tus Range Deficiency <20 ng/mL (50nmol/L) Insufficiency 20 - 30 ng/mL (50 - 75 nmol/L) Sufficiency 30 - 100 ng/mL (75 - 250 nmol/L) Toxicity >100 ng/mL (>250 nmol/L) Estimated GFR (MDRD) Amer 77 mL/min >60 [facility] Comment on above: GFR Calc Estimated GFR (MDRD) Non-Af Amer 64 mL/min >60 [facility] Comment on above: Non- GFR Calc Platelets bldOrdered By: Ventura Cook on 01-26-2023 Platelets (Bld) [#/Vol] 238 10*3/uL 150-450 [facility] Serum or plasma albumin yahaira urement (mass/volume)Ordered By: Emi Cook on 01-26-2023 Albumin [Mass/Vol] 3.7 g/dL 3.2-5.0 [facility] Serum or plasma albumin/glob ulin mass ratioOrdered By: Emi Cook on 01-26-2023 Albumin/Globulin [Mass ratio] 1.0 {ratio} 0.9-2.4 [facility] Serum or plasma calcium yahaira urement (mass/volume)Ordered By: Emi Cook on 01-26-2023 Calcium [Mass/Vol] 9.3 mg/dL 8.5-10.1 [facility] Serum or plasma cholesterol in HDL measurement (mass/volume)Ordered By: Emi Cook on 01-26-2023 Cholesterol in HDL [Mass/Vol] 68 mg/dL >40 [facility] Comment on above: The drugs N-Acetylcy steine and Metamizole may falsely depress this assay. Reference Range HDL <40 mg/dL Low HDL Cholesterol HDL >or= 60 mg/dL High HDL Cholesterol Serum or plasma cholesterol in VLDL measurement (mass/volume)Ordered By: Emi Cook on 01-26-2023 Cholesterol in VLDL [Mass/Vol] 44 mg/dL 5-40 [facility] Serum or plasma creatinine m easurement (mass/volume)Ordered By: Emi Cook on 01-26-2023 Creatinine [Mass/Vol] 0.91 mg/dL 0.55-1.02 [facility] Comment on above: The validity of the calculated GFR & GFRAA in patients over 70 years has not been determined. Clinical correlation is essential. Serum or plasma low density lipoprotein (LDL) cholesterol measurement (mass/volume)Ordered By: Emi Cook on 01-26-2023 Cholesterol in LDL [Mass/Vol] 32 mg/dL 0-130 [facility] Serum or plasma urea nitroge n measurement (mass/volume)Ordered By: Emi Cook on 01-26-2023 Urea nitrogen [Mass/Vol] 20 mg/dL 7-18 [facility] Thin prep Papanicolaou smear with manual screeningOrdered By: Emi Cook on 01-26-2023 Thin prep Papanicolaou smear with manual screening 17 U/L 15-37 [facility] Thin prep Papanicolaou smear with manual screening 6 5-15 [facility] MRI Brain w/o Contraston MRI Brain w/o Contrast Patient Name: CYNDEE VITAL [facility] ACCESSION EXAM DATE/TIME PROCEDURE ORDERING PROVIDER [id number] 11/11/2021 12:17 EST MRI Brain w/o Contrast MD JONATHAN, GUNJAN CPT code 97648 Reason For Exam (MRI Brain w/o Contrast) memory loss Report MRI brain without contrast HISTORY: Memory loss Protocol: Axial T2, FLAIR, diffusion, gradient echo sequences without contrast: Sagittal T1 sequence without contrast A few small foci of chronic white matter ischemic changes. No acute infarcts. No extra-axial fluid collection or hydrocephalus. Mild cerebral atrophy. No mass or mass effect. The paranasal sinuses and mastoid air cells are clear. IMPRESSION: A few small foci of chronic white matter ischemic changes. Mild cerebral atrophy. Report Dictated on Final Dictating Physician: MD SAUNDERS MALAY Signed Date and Time: 11/11/2021 1:27 pm Signed by: MD SAUNDERS MALAY Transcribed Date and Time: 11/11/2021 1:28 Normal [facility] Thyroid Stim. Hormoneon 12-0 Thyroid Stim. Hormone 2.135 u[IU]/mL Normal 0.465-4.68 0 [facility] Comment on above: Performed By: #### T SH5, B12 #### [facility] [address] [place] [address] Vitamin B12on 10-14-2021 Cobalamin (Vitamin B12) [Mass/Vol] 256 pg/mL Normal 239-931 [facility] Comment on above: Performed By: #### T SH5, B12 #### [facility] [address] [place] [address] MA MAMMOGRAM SCREENING BILAT ERAL W/TOMOon 08-19-2021 MA MAMMOGRAM SCREENING BILATERAL W/DOMINIC ORIGINAL FROM: [facility] [address] [place], [place] [address] PROCEDURE FOR: CYNDEE VITAL [address] [place] [address] Home: PID#: [id number] Exam#: [id number] : 1945 Age: 76 TO: EMI COOK APRN [employer] [address] [place] [address] EXAMINATION: SCREENING DIGITAL BILATERAL MAMMOGRAM WITH TOMOSYNTHESIS, 08/19/2021 TECHNIQUE: Screening mammography of the bilateral breasts was performed with tomosynthesis. 2D standard and 3D tomosynthesis combination imaging performed through both breasts in the MLO and CC projection. Computer aided detection was utilized in the interpretation of this exam. COMPARISON: 03/21/2019, 01/13/2018 HISTORY: Breast cancer screening. FINDINGS: BREAST DENSITY: Scattered fibroglandular tissue There are no significant masses or calcifications. IMPRESSION: No mammographic evidence of malignancy. Continued screening with annual mammograms is recommended. BIRADS: MAMMOGRAM BI-RADS: 1: Negative RECALL: 1 year screening RECALL TYPE: mammo LETTER SENT: Normal BI-RADS 1 and 2 Interpreted by: Berto Conte MD Preliminary Report By: Berto Conte MD Electronically signed By Berto Conte MD Dictated Date: 08/20/2021 9:20:13 AM Prelim Date: 08/20/2021 9:23:16 AM Sign Date: 08/20/2021 9:23:16 AM Ordering Provider: EMI COOK Yarn Cleaner: HAM RODRIGUEZ RT (R) (M) (CT) letter sent: Normal BI-RADS 1 and 2 Mammogram BI-RADS: 1 Negative Normal [facility] ([place]) Vital Signs Date Time Vital Sign Value Performing Clinician Mirna trinh 02-23-2025 08:57-0400 Body mass index (BMI) [Ratio] 24.46 kg/m2 Gunjan Castillo MD Work Phone: [facility] [employer] 02-23-2025 08:57-0400 Body weight 58.24 kg Gunjan Castillo MD Work Phone: [facility] [employer] 02-23-2025 08:57-0400 Diastolic blood pressure 76 mm[Hg] Gunjan Castillo MD Work Phone: [facility] [employer] 02-23-2025 08:57-0400 Heart rate 78 /min Gunjan Castillo MD Work Phone: [facility] [employer] 02-23-2025 08:57-0400 Systolic blood pressure 121 mm[Hg] Gunjan Castillo MD Work Phone: [facility] [employer] 08-25-2024 08:44-0400 Body mass index (BMI) [Ratio] 26.18 kg/m2 Gunjan Castillo MD Work Phone: [facility] [employer] 08-25-2024 08:44-0400 Body weight 62.32 kg Gunjan Castillo MD Work Phone: [facility] [employer] 08-25-2024 08:44-0400 Diastolic blood pressure 74 mm[Hg] Gunjan Castillo MD Work Phone: [facility] [employer] 08-25-2024 08:44-0400 Heart rate 72 /min Gunjan Castillo MD Work Phone: [facility] [employer] 08-25-2024 08:44-0400 Systolic blood pressure 119 mm[Hg] Gunjan Castillo MD Work Phone: [facility] [employer] 02-25-2024 08:53-0400 Body mass index (BMI) [Ratio] 24.38 kg/m2 Gunjan Castillo MD Work Phone: [facility] 02-25-2024 08:53-0400 Body weight 58.06 kg Gunjan Castillo MD Work Phone: [facility] 02-25-2024 08:53-0400 Diastolic blood pressure 60 mm[Hg] Gunjan Castillo MD Work Phone: [facility] 02-25-2024 08:53-0400 Heart rate 69 /min Gunjan Castillo MD Work Phone: [facility] 02-25-2024 08:53-0400 Systolic blood pressure 94 mm[Hg] Gunjan Castillo MD Work Phone: [facility] 01-26-2024 17:41-0400 Body height 154.94 cm [facility] 01-26-2024 17:41-0400 Body mass index (BMI) [Ratio] 24 kg/m2 [facility] 01-26-2024 17:41-0400 Body temperature 96.3 [degF] [facility] 01-26-2024 17:41-0400 Body weight 57.6 kg [facility] 01-26-2024 17:41-0400 Diastolic blood pressure 80 mm[Hg] [facility] 01-26-2024 17:41-0400 Heart rate 84 /min [facility] 01-26-2024 17:41-0400 Respiratory rate 18 /min [facility] 01-26-2024 17:41-0400 SaO2% (BldA) [Mass fraction] 97 % [facility] 01-26-2024 17:41-0400 Systolic blood pressure 120 mm[Hg] [facility] 12-07-2023 17:43-0500 Body mass index (BMI) [Ratio] 25.1 kg/m2 [facility] 12-07-2023 17:43-0500 Body temperature 96.8 [degF] [facility] 12-07-2023 17:43-0500 Body weight 60.32 kg [facility] 12-07-2023 17:43-0500 Diastolic blood pressure 60 mm[Hg] [facility] 12-07-2023 17:43-0500 Heart rate 64 /min [facility] 12-07-2023 17:43-0500 Respiratory rate 18 /min [facility] 12-07-2023 17:43-0500 SaO2% (BldA) [Mass fraction] 95 % [facility] 12-07-2023 17:43-0500 Systolic blood pressure 98 mm[Hg] [facility] 10-22-2023 14:58-0500 Body mass index (BMI) [Ratio] 24.42 kg/m2 Gunjan Castillo MD Work Phone: [facility] 10-22-2023 14:58-0500 Body weight 58.15 kg Gunjan Castillo MD Work Phone: [facility] 10-22-2023 14:58-0500 Diastolic blood pressure 69 mm[Hg] Gunjan Castillo MD Work Phone: [facility] 10-22-2023 14:58-0500 Heart rate 56 /min Gunjan Castillo MD Work Phone: [facility] 10-22-2023 14:58-0500 Systolic blood pressure 112 mm[Hg] Gunjan Castillo MD Work Phone: [facility] 02-26-2023 15:46-0400 Body mass index (BMI) [Ratio] 21.87 kg/m2 Gunjan Castillo MD Work Phone: [facility] 02-26-2023 15:46-0400 Body temperature 96.6 [degF] Gunjan Castillo MD Work Phone: [facility] 02-26-2023 15:46-0400 Body weight 52.07 kg Gunjan Castillo MD Work Phone: [facility] 02-26-2023 15:46-0400 Diastolic blood pressure 72 mm[Hg] Gunjan Castillo MD Work Phone: [facility] 02-26-2023 15:46-0400 Heart rate 58 /min Gunjan Castillo MD Work Phone: [facility] 02-26-2023 15:46-0400 Systolic blood pressure 112 mm[Hg] Gunjan Castillo MD Work Phone: [facility] 01-26-2023 16:19-0400 Body height 154.94 cm [facility] 01-26-2023 16:19-0400 Body mass index (BMI) [Ratio] 22.8 kg/m2 [facility] 01-26-2023 16:19-0400 Body temperature 97.2 [degF] [facility] 01-26-2023 16:19-0400 Body weight 54.88 kg [facility] 01-26-2023 16:19-0400 Diastolic blood pressure 80 mm[Hg] [facility] 01-26-2023 16:19-0400 Heart rate 87 /min [facility] 01-26-2023 16:19-0400 Respiratory rate 18 /min [facility] 01-26-2023 16:19-0400 SaO2% (BldA) [Mass fraction] 97 % [facility] 01-26-2023 16:19-0400 Systolic blood pressure 120 mm[Hg] [facility] 02-28-2022 15:28-0400 Body height 154.9 cm Marcus Sorensen DO Work Phone: [facility] 02-28-2022 15:28-0400 Body weight 49.9 kg Marcus Sorensen DO Work Phone: [facility] 02-28-2022 15:28-0400 Diastolic blood pressure 58 mm[Hg] Marcus Sorensen DO Work Phone: [facility] 02-28-2022 15:28-0400 Heart rate 58 /min Marcus Sorensen DO Work Phone: [facility] 02-28-2022 15:28-0400 SaO2% (BldA) [Mass fraction] 98 % Marcus Sorensen DO Work Phone: [facility] 02-28-2022 15:28-0400 Systolic blood pressure 112 mm[Hg] Marcus Sorensen DO Work Phone: [facility] Encounters Encounter Date Encounter Type Care Provider Facility Start: 03-31-2025 Encounter for genera l adult medical examination without abnormal findings Josué Last OLS [facility] Start: 03-14-2025 ambulatory EMI COOK Facil ity:[facility] Start: 03-14-2025 End: 03-14-2025 Subsequent hospital visit by physician [facility]i [facility] Work Phone: Radiology Comment on above: Arrived Start: 03-10-2025 End: 03-10-2025 ambulatory Josué BERG Facility:[facility] Start: 02-23-2025 End: 03-10-2025 Telephone encounter Gunjan Castillo MD Work Phone: [facility] Start: 02-23-2025 End: 02-23-2025 Subsequent hospital visit by physician Gunjan Castillo MD Work Phone: [facility] Comment on above: Irregular heart rate Start: 02-23-2025 End: 02-23-2025 ambulatory EMICarla COOK [facility] Start: 02-23-2025 End: 02-23-2025 Office outpatient visit 40 minutes [facility] Comment on above: 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 Start: 09-29-2024 End: 09-29-2024 ambulatory AMILCAR BRADFORD Facility:[facility] Start: 09-29-2024 End: 09-29-2024 Patient encounter procedure Emi Cook FIELD CROP TECHNICAL OFFICER.SECOND CRUSHER Work Phone: [facility] Start: 09-29-2024 End: 09-29-2024 Subsequent hospital visit by physician Pet[facility] Comment on above: Examination of parti cipant or control in clinical research [Z00.6] Start: 09-29-2024 End: 09-29-2024 ambulatory AMILCAR BRADFORD Facility:[facility] Start: 09-29-2024 Patient encounter procedure AMILCAR BRADFORD [facility] Start: 09-21-2024 End: 09-21-2024 ambulatory Emi Cook SPECIAL LIBRARY LIBRARIAN Facility:[facility] Start: 09-19-2024 End: 09-19-2024 Telephone encounter Amilcar Bradford MD, PhD Work Phone: Molecular Imaging Comment on above: Returning Patient's Call Start: 09-14-2024 End: 09-15-2024 Orders Only Amilcar Bradford MD, PhD Work Phone: [facility] Comment on above: Examination of parti cipant or control in clinical research (Primary Dx) Start: 09-14-2024 End: 09-15-2024 Patient encounter procedure Amilcar Bradford MD, PhD Work Phone: [facility] Start: 08-30-2024 End: 08-30-2024 Emergency department patient visit EMI COOK Facility:[facility] Start: 08-25-2024 End: 08-25-2024 Office outpatient visit 25 minutes Gunjan Castillo MD Work Phone: [facility] [place] Comment on above: Alzheimer's dementia with behavioral disturbance (HCC) (Primary Dx) Start: 08-25-2024 End: 08-25-2024 ambulatory GUNJAN CASTILLO [facility] Start: 08-14-2024 End: 08-14-2024 Letter encounter Celina Levy MD Work Phone: [facility] Start: 07-22-2024 End: 07-22-2024 Samantha Castillo MD Work Phone: [facility] Comment on above: Depression, unspecif ied depression type Start: 05-10-2024 End: 05-10-2024 ambulatory EMI COOK Facility:[facility] Start: 04-26-2024 End: 04-26-2024 ambulatory AMILCAR BRADFORD Facility:[facility] Start: 04-26-2024 End: 04-26-2024 ambulatory AMILCAR BRADFORD Facility:[facility] Start: 04-26-2024 End: 04-26-2024 Patient encounter procedure Emi Cook FIELD CROP TECHNICAL OFFICER.SECOND CRUSHER Work Phone: [facility] Start: 04-26-2024 End: 04-26-2024 Subsequent hospital visit by physician Petct4 Work Phone: [facility] Comment on above: Examination of parti cipant or control in clinical research [Z00.6] Start: 04-18-2024 Telephone encounter Amilcar Bradford MD, PhD Work Phone: [facility] Comment on above: Returning Patient's Call Start: 04-15-2024 Orders Only Amilcar naqvi MD, PhD Work Phone: [facility] Comment on above: Examination of parti cipant or control in clinical research (Primary Dx) Start: 04-15-[address] arun Bradford MD, PhD Work Phone: [facility] Start: 04-14-2024 Orders Only Amilcar naqvi MD, PhD Work Phone: Neurology Comment on above: Examination of parti cipant or control in clinical research (Primary Dx) Start: 04-14-[address] arun Bradford MD, PhD Work Phone: [facility] Start: 04-13-2024 Orders Only Amilcar naqvi MD, PhD Work Phone: Radiology Comment on above: Examination of parti cipant in clinical trial (Primary Dx) Start: 04-13-[address] arun Bradford MD, PhD Work Phone: [facility] Start: 02-25-2024 End: 02-25-2024 Office outpatient visit 40 minutes Gunjan Castillo MD Work Phone: [facility] Geriatrics Comment on above: Alzheimer's dementia with behavioral disturbance (HCC) (Primary Dx) Start: 02-01-2024 End: 02-01-2024 Patient encounter procedure Mri Ctr Work Phone: [facility] Start: 02-01-2024 End: 02-01-2024 Subsequent hospital visit by physician Mri Guillaume Noe [facility] Work Phone: Radiology Comment on above: Examination for norm al comparison or control in clinical research [Z00.6] Start: 01-26-2024 End: 01-26-2024 ambulatory [facility] Work Phone: Start: 01-26-2024 End: 01-26-2024 Patient encounter procedure Wolfgang Sagastume Neurology Comment on above: Examination for norm al comparison or control in clinical research (Primary Dx) Start: 01-25-2024 ambulatory Roxann Collins RN [facility] Start: 01-25-2024 Patient encounter procedure Roxann Collins RN [facility] Start: 01-25-2024 Telephone encounter Gunjan ferraro MD Work Phone: [facility] Start: 01-13-2024 End: 01-13-2024 Emergency department patient visit SHAKILA WARE Facility:[facility] Start: 01-03-2024 End: 01-03-2024 Evaluation and management of inpatient EMI COOK Facility:[facility] Start: 12-28-2023 Refill Monica Ahn [facility] [employer] Start: 10-22-2023 End: 10-22-2023 Office outpatient visit 40 minutes Gunjan Castillo MD Work Phone: [facility] Geriatrics Comment on above: Alzheimer's dementia without behavioral disturbance (HCC) (Primary Dx); History of depression; Driving safety issue; Vitamin B12 deficiency Start: 09-24-2023 End: 09-24-2023 Subsequent hospital visit by physician [facility] Comment on above: Memory changes [R41. 3] Start: 09-17-2023 Telephone encounter Amilcar Bradford MD, PhD Work Phone: Molecular Imaging Comment on above: NM RESEARCH Start: 07-30-2023 Telephone encounter Wolfgang murray Comment on above: Opened In Error Start: 07-03-2023 Refill Gunjan goetz MD Work Phone: [facility] Geriatrics Comment on above: Depression, unspecif ied depression type Start: 04-13-2023 End: 04-13-2023 ambulatory UNKNOWN PROVIDER Facility:[facility] Start: 04-13-2023 End: 04-13-2023 Office outpatient new 20 minutes Celina Levy MD Work Phone: [facility] Dermatology Comment on above: Seborrheic keratoses (Primary Dx); Ephelides; Lentigines; Multiple nevi Start: 02-26-2023 End: 02-26-2023 Office outpatient visit 40 minutes Gunjan Castillo MD Work Phone: [facility] Geriatrics Comment on above: Alzheimer's dementia without behavioral disturbance (HCC) (Primary Dx); Depression, unspecified depression type Start: 02-19-2023 Telephone encounter Amilcar Bradford MD, PhD Work Phone: [facility] Comment on above: NM RESEARCH Cancelled Appointmen t (Cancel and reschedule ) Start: 02-19-2023 End: 02-19-2023 Patient encounter procedure Emi Cook FIELD CROP TECHNICAL OFFICER.SECOND CRUSHER Work Phone: [facility] Start: 02-19-2023 End: 02-19-2023 Subsequent hospital visit by physician Petct[facility] Comment on above: Examination for norm al comparison or control in clinical research [Z00.6] Start: 01-26-2023 End: 01-26-2023 ambulatory [facility] Work Phone: Start: 01-26-2023 End: 01-26-2023 Patient encounter procedure [facility] Spec[facility] Start: 01-21-2023 Patient encounter procedure Wolfgang richardsond Neurology Comment on above: Examination for norm al comparison or control in clinical research (Primary Dx) Start: 08-22-2022 ambulatory Yoselyn Castanoyaneli [facility] Start: 08-22-2022 End: 08-22-2022 Subsequent hospital visit by physician Yoselyn Paez FIELD CROP TECHNICAL OFFICER - SECOND CRUSHER Work Phone: [facility] Start: 02-28-2022 End: 02-28-2022 Patient encounter procedure Marcus Sorensen DO Work Phone: Cardiology Comment on above: PSVT (paroxysmal sup raventricular tachycardia) (HCC) (Primary Dx); PVC (premature ventricular contraction); Pure hypercholesterolemia Start: 02-17-2022 ambulatory UNKNOWN PROVIDER [facility] Start: 11-18-2021 ambulatory UNKNOWN PROVIDER [facility] Start: 10-28-2021 ambulatory UNKNOWN PROVIDER [facility] Start: 10-14-2021 ambulatory UNKNOWN PROVIDER [facility] Start: 08-19-2021 End: 08-19-2021 Patient encounter procedure EMI COOK FIELD CROP TECHNICAL OFFICER-SECOND CRUSHER [facility] Procedures Date Procedure Procedure Detail Performing Clinician Start: 02-23-2025 Ecg routine ecg w/le ast 12 lds trcg only w/o i&r Gunjan Castillo MD Work Phone: Start: 02-01-2024 Mri brain brain stem w/o contrast material Amilcar Bradford MD, PhD Work Phone: Start: 01-26-2024 Urine culture Start: 09-24-[address] for attenuation limited area Amilcar Bradford MD, PhD Work Phone: Start: 02-19-[address] for attenuation limited area Amilcar Bradford MD, PhD Work Phone: Start: 10-06-2019 Adult depression scr eening assessment Marcus Sorensen DO Work Phone: H/O: hysterectomy EMI AJ FIELD CROP TECHNICAL OFFICER-SECOND CRUSHER Plan of Treatment Date Care Activity Detail Author Start: 08-30-2027 Diabetes Screening Diabetes Screenjob g [facility] Start: 01-12-2027 Diabetes Screening Diabetes Screenin g [facility] Start: 08-31-2025 End: 08-31-2025 Patient encounter procedure 08/31/2025 9:00 AM EDT Office Visit [facility] [place] [phone] Gunjan Castillo MD [address] [id number] [facility] Start: 08-25-2025 Depression Monitoring Depression Merary [facility] Start: 07-10-2025 Influenza vaccination Influenz a Vaccine (Season Ended) [facility] Start: 04-11-2025 End: 04-11-2025 Patient encounter procedure 04/11/2025 9:30 AM EDT Appointment Radiology [address] [place], [place] [id number]/ [address] [id number] professional [id number] MR Radiology Comment on above: [id number]/ [address] [id number] professional [id number]_Unscheduled MR Start: 02-23-2025 Depression Monitoring [facility] Start: 02-23-2025 End: 02-23-2025 Patient encounter procedure 02/23/2025 9:00 AM EDT Office Visit [facility] [address] [place] [phone] Gunjan Castillo MD [address] [id number] [facility] Start: 11-09-2024 Advance Directive Discussion Advance Directive Discussion [facility] Start: 11-09-2024 Medicare Advantage Annual Wellness Visit Medicare Advantage Annual Wellness Visit [facility] Start: 10-07-2024 LIPID SCREEN LIPID SCREEN [facility] Start: 09-29-2024 End: 09-29-2024 Patient encounter procedure [facility] Comment on above: NM PET/CT BRAIN PLAQ [facility] Start: 09-29-2024 End: 09-29-2024 Patient encounter procedure 09/29/2024 12:30 PM EST Office Visit Radiology [address] [place] [address] Direct pt.to MRI U15 desk Radiology Comment on above: Direct pt.to MRI U15 desk Start: 08-26-2024 Depression Monitoring Depression Mon [facility] Start: 08-26-2024 Depresssion [facility] Start: 08-25-2024 End: 08-25-2024 Patient encounter procedure [facility] Ger[facility] Start: 07-10-2024 COVID-19 Vaccine ( season) COVID-19 Vaccine ( season) [facility] Start: 07-10-2024 COVID-19 Vaccine () COVID-19 Vaccine () [facility] Start: 07-10-2024 Covid-19 Vaccine ( season) Covid-19 Vaccine () [facility] Start: 07-10-2024 Influenza vaccination [facility] Start: 04-26-2024 End: 04-26-2024 Patient encounter procedure [facility] Comment on above: NM PET/CT BRAIN PLAQ [facility] Start: 04-22-2024 Depresssion Monitoring Depresssion M [facility] Start: 04-19-2024 End: 04-19-2024 Patient encounter procedure 04/19/2024 9:30 AM EDT Office Visit Radiology [address] [place] [address] Research [id number] Subject [id number] Day 162 MRI Radiology Comment on above: Research [id number] Subject [id number] Day 162 MRI Start: 02-25-2024 End: 02-25-2024 Patient encounter procedure 02/25/2024 8:45 AM EDT Office Visit [facility] Geriatrics [address] [place] [phone] Gunjan Castillo MD [address] [phone] [facility] Start: 01-26-2024 5,10-methylenetetrah ydr ofolate reductase gene analysis [facility] Start: 11-09-2023 Advance Directive Discussion Advance Directive Discussion [facility] Start: 11-09-2023 Behavioral Health Screening Behavioral Health Screening [facility] Start: 11-09-2023 Depression Assessment Depression Ass essment [facility] Start: 11-09-2023 Medicare Advantage Annual Wellness Visit Medicare Advantage Annual Wellness Visit [facility] Start: 10-22-2023 End: 10-22-2024 Cobalamin (Vitamin B12) [Mass/volume] in Serum or Plasma Vitamin B12 Lab Routine Vitamin B12 deficiency Expected: 10/22/2023 (Approximate), Expires: 10/22/2024 [facility] Work Phone: Comment on above: Expected: 10/22/2023 (Approximate), Expires: 10/22/2024 Start: 08-28-2023 Depresssion Monitoring Depresssion M onitoring [facility] Start: 07-10-2023 COVID-19 Vaccine ( season) COVID-19 Vaccine ( season) [facility] Start: 07-10-2023 Covid-19 Vaccine ( season) Covid-19 Vaccine ( season) [facility] Start: 07-10-2023 Influenza vaccination [facility] Start: 02-17-2023 Depression Monitoring Depression Mon itoring [facility] Start: 11-09-2022 ADVANCE DIRECTIVE DISCUSSION ADVANCE DIRECTIVE DISCUSSION [facility] Start: 11-09-2022 DEPRESSION ASSESSMENT DEPRESSION ASS ESSMENT [facility] Start: 10-07-2022 DIABETES SCREEN [facility]ABETES SCREEN [facility] Start: 10-07-2022 Diabetes Screening Diabetes Screenin g [facility] Start: 07-10-2022 Influenza vaccination [facility] Start: 06-09-2022 Influenza vaccination Flu vaccine (# 1) [facility] Start: 11-30-2021 COVID-19 VACCINE (4 - Booster for Pfizer series) COVID-19 VACCINE (4 - Booster for Pfizer series) [facility] Start: 11-30-2021 Covid-19 Vaccine (4 - Pfizer series) Covid-19 Vaccine (4 - Pfizer series) [facility] Start: 11-09-2021 ADVANCE DIRECTIVE DISCUSSION ADVANCE DIRECTIVE DISCUSSION [facility] Start: 10-14-2021 Annual Wellness Visi t (AWV) Annual Wellness Visit (AWV) [facility] Start: 2021 RSV Immunization for Adults (1 - 1-dose 75+ series) RSV Immunization for Adults (1 - 1-dose 75+ series) [facility] Start: 2021 RSV Vaccine (1 - 1-d ose 75+ series) RSV Vaccine (1 - 1-dose 75+ series) [facility] Start: 2021 RSV Vaccine (75+ years) RSV Vaccine (75+ years) [facility] Start: 2021 RSV vaccine (adult) (1 - 1-dose 75+ series) RSV vaccine (adult) (1 - 1-dose 75+ series) [facility] Start: 10-06-2020 Adult depression screening assessment DEPRESSION SCREENING [facility] Start: 2011 BONE DENSITY BONE DENSITY [facility] Start: 2011 Bone Density Screening Bone Density Screening [facility] Start: 2011 Pneumococcal 65+ yea rs Vaccine (1 - PCV) Pneumococcal 65+ years Vaccine (1 - PCV) [facility] Start: [address] [facility] Start: 2011 Pneumococcal Vaccine : 65+ (1 - PCV) Pneumococcal Vaccine: 65+ (1 - PCV) [facility] Start: 2011 Pneumococcal Vaccine : 65+ (1 of 1 - PCV) Pneumococcal Vaccine: 65+ (1 of 1 - PCV) [facility] Start: 2011 Pneumococcal Vaccine : 65+ Years (1 - PCV) Pneumococcal Vaccine: 65+ Years (1 - PCV) [facility] Start: 2011 Pneumococcal Vaccine : 65+ Years (1 of 1 - PCV) Pneumococcal Vaccine: 65+ Years (1 of 1 - PCV) [facility] Start: 2011 PNEUMOCOCCAL: 65+ (1 - PCV) PNEUMOCOCCAL: 65+ (1 - PCV) [facility] Start: 2011 PNEUMOVAX AGE 65 AND OVER WITH 5YR LOOKBACK (#1) PNEUMOVAX AGE 65 AND OVER WITH 5YR LOOKBACK (#1) [facility] Start: [address] [facility] Start: 2006 Hepatitis B (HBV) Vaccine (optional start 60+ years) Hepatitis B (HBV) Vaccine (optional start 60+ years) [facility] Start: 2006 RSV Immunization age d 60 or older (1 - 1-dose 60+ series) RSV Immunization aged 60 or older (1 - 1-dose 60+ series) [facility] Start: 2006 RSV Vaccine (1 - 1-d ose 60+ series) RSV Vaccine (1 - 1-dose 60+ series) [facility] Start: 2001 Screening for osteoporosis DEXA (modify frequency per FRAX score) [facility] Start: 1996 Pneumococcal vaccination Pneumococcal Vaccine(s) (50+ yrs) (1 of 1 - PCV) [facility] Start: 1996 Pneumococcal Vaccine : 50+ (1 of 1 - PCV) Pneumococcal Vaccine: 50+ (1 of 1 - PCV) [facility] Start: 1996 Pneumococcal Vaccine : 50+ Years (1 of 1 - PCV) Pneumococcal Vaccine: 50+ Years (1 of 1 - PCV) [facility] Start: 1996 Shingles (RZV) Vacci ne (1 of 2) Shingles (RZV) Vaccine (1 of 2) [facility] Start: 1996 Shingles vaccine (1 of 2) Shingles vaccine (1 of 2) [facility] Start: 1996 SHINGRIX VACCINE (1 of 2) SHINGRIX VACCINE (1 of 2) [facility] Start: 1996 Zoster Vaccines (1 o f 2) Zoster Vaccines (1 of 2) [facility] Start: 1991 COLOGUARD (FIT-DNA) COLOGUARD (FIT-D NA) [facility] Start: 1991 Colonoscopy COLONOSCOPY [facility] Start: 1991 COLORECTAL CANCER SCREENING COLORECTAL CANCER SCREENING [facility] Start: [address] COLONOGRAPHY [facility] Start: 1991 FECAL OCCULT BLOOD FECAL OCCULT BLOO D [facility] Start: 1991 SIGMOIDOSCOPY SIGMOIDOSCOPY [facility] Start: 1965 DTaP/Tdap/Td vaccine (1 - Tdap) DTaP/Tdap/Td vaccine (1 - Tdap) [facility] Start: 1965 DTaP/Tdap/Td Vaccine s (1 - Tdap) DTaP/Tdap/Td Vaccines (1 - Tdap) [facility] Start: 1965 Hepatitis A (HAV) Vaccine (optional start 19+ years) Hepatitis A (HAV) Vaccine (optional start 19+ years) [facility] Start: 1965 Urine microalbumin profile [facility] Start: 1964 Anxiety Screening Anxiety Screening [facility] Start: 1964 [facility]: [facility] Diabetes mellitus screening Diabetes Screening [facility] Start: 1964 HEPATITIS C SCREENING HEPATITIS C SC REENING [facility] Start: 1964 Hepatitis C screening [facility] Start: 1964 Tetanus + diphtheria + acellular pertussis vaccine (product) Tdap Booster [facility] Start: 1956 Lipid panel Lipids [facility] Start: 1946 COVID-19 Vaccine (#1) COVID-19 Vacci ne (#1) [facility] Start: 1946 Hepatitis B Vaccines (1 of 3 - 3-dose series) Hepatitis B Vaccines (1 of 3 - 3-dose series) [facility] Start: 1946 Lipid panel Lipid Panel [facility] Start: 1946 Medicare Advantage Annual Wellness Visit (AWV) Medicare Advantage Annual Wellness Visit (AWV) [facility] Start: 1946 Screening for osteoporosis Bone Density Scan [facility] 5,10-methylenetetrah ydr ofolate reductase gene analysis [facility] ECG 12 lead ECG 12 lead CV E CG Routine Irregular heart rate 02/23/2025 9:57 AM EDT [facility] Work Phone: End: 02-28-2023 ECG COMPLETE ECG COMPLETE ECG Routine PSVT (paroxysmal supraventricular tachycardia) (HCC) 1 Occurrences starting 02/28/2022 until 02/28/2023 Work Phone: Comment on above: 1 Occurrences starti ng 02/28/2022 until 02/28/2023 End: 02-24-2025 MR Brain WO contrast MRI BRAIN WO IVCON Radiology Routine Examination for normal comparison or control in clinical research 1 Occurrences starting 01/27/2024 until 02/24/2025 Work Phone: Comment on above: 1 Occurrences starti ng 01/27/2024 until 02/24/2025 End: 02-20-[address] for attenuation limited area NM PET/CT BRAIN [facility] Radiology Routine Examination for normal comparison or control in clinical research 1 Occurrences starting 01/22/2023 until 02/20/2024 Work Phone: Comment on above: 1 Occurrences starti ng 01/22/2023 until 02/20/2024 End: 05-15-2025 PET+CT Brain for amyloidosis NM PET/CT [facility] Radiology Routine Examination of participant or control in clinical research 1 Occurrences starting 04/16/2024 until 05/15/2025 Work Phone: Comment on above: 1 Occurrences starti ng 04/16/2024 until 05/15/2025 PET+CT Brain for amyloidosis NM PET/CT [facility] Radiology Routine Examination of participant or control in clinical research 04/26/2024 3:31 PM EDT Work Phone: End: 10-14-2025 PET+CT Brain for amyloidosis NM PET/CT [facility]iology Routine Examination of participant or control in clinical research 1 Occurrences starting 09/15/2024 until 10/14/2025 Work Phone: Comment on above: 1 Occurrences starti ng 09/15/2024 until 10/14/2025 PET+CT Brain for amyloidosis NM PET/CT [facility]iology Routine Examination of participant or control in clinical research 09/29/2024 3:39 PM EST Work Phone: [facility] Immunizations Immunization Date Immunization Notes Care Provider Fa david 09-23-2007 influenza virus vacc ine, unspecified formulation [facility] Work Phone: [facility] Payers Date Payer Category Payer Medicare [id number] 2024 Medicare [id number] 2024 Self-pay [id number] 2022 Commercial Indemnity COMMERCIAL INSURANCE - OTHER Member Subscriber Plan / Payer (Effective 2022-Present) Name: Cyndee Vital Relation to Subscriber: Self Name: Cyndee Vital Payer ID: Not on file Group ID: Not on file Type: Indemnity Address: [address] [place] [address] [id number] 11-09-2022 Medicare HMO [id number] 11-09-2022 Private Health Insurance [id number] 11-09-2022 Unknown COMMERCIAL INSUR ANCE - OTHER COMMERCIAL INSURANCE OTHER [id number] 11/09/2022-Present [address] [place] [address] Indemnity [id number] 11-09-2020 Medicare UHC AARP MEDICAR E [facility] AARP MEDICARE HMO [id number] 11/09/2020-Present [phone] [address] [address] [place] [address] HMO [id number] 11-09-2020 Medicare [id number] 11-09-2020 Medicare [id number] 05-09-2011 Medicare MEDICARE PART A B [id number] 1945 Unknown [id number] Unknown [id number] Unknown [id number] Unknown [id number] .1945 Unknown [id number] .1945 Unknown [id number] Private Health Insurance Private Health Insurance [employer] [facility] [id number] Unknown AARP [id number] Unknown PHYSICIAN [employer] [id number] Unknown [id number] Unknown [id number] Social History Date Type Detail Facility Start: 10-06-2019 End: 01-13-2024 Never smoked tobacco (finding) [facility] Start: 1945 Sex Assigned At Female [facility] Start: 10-06-2019 End: 01-13-2024 Tobacco use and exposure Smokeless tobacco non-user [facility] Start: 02-28-2022 End: 08-30-2024 Alcohol intake Current drinker of alcohol (finding) [facility] Start: 10-06-2019 History SDOH Alcohol Frequency 2 [facility] Start: 10-06-2019 History SDOH Alcohol Std Drinks 1 [facility] Start: 10-06-2019 History SDOH Alcohol Comment occasional [facility] Start: 1945 Sex Assigned At Not on file [facility] Start: 08-12-2022 End: 02-26-2023 Exposure to SARS-CoV-2 (event) Not sure [facility] Start: 12-21-2020 End: 08-31-2023 Tobacco smoking status NHIS Unknown if ever smoked [facility] Start: 02-26-2023 End: 02-23-2025 Alcohol intake Ex-drinker (finding) [facility] Start: 02-26-2023 End: 09-24-2023 Alcohol intake [facility] Start: 02-26-2023 End: 09-24-2023 Gender identity Not on file [facility] Start: 02-18-2023 Gender identity Identifies as female gender (finding) [facility] Start: 02-18-2023 Sexual orientation Heterosexual (finding) [facility] How often to you hav e a drink containing alcohol? Monthly or less [facility] Work Phone: How many standard dr inks containing alcohol do you have on a typical day? 1 or 2 [facility] Work Phone: How often do you hav e 6 or more drinks on 1 occasion? Never [facility] Work Phone: PHQ2 Score 0 [facility] Start: 06-09-2022 End: 11-04-2022 Sex Female (finding) [facility] Has the [employer], or [employer] threatened to shut off services in your home in past 12Mo No [facility] [employer] Do you belong to any clubs or organizations such as gnosticism groups, unions, fraternal or athletic groups, or school groups? Yes [facility] Are you now , , , , never or living with a partner? [facility] How hard is it for y ou to pay for the very basics like food, housing, medical care, and heating Somewhat hard [facility] Do you feel stress - tense, restless, nervous, or anxious, or unable to sleep at night because your mind is troubled all the time - these days [OSQ] To some extent [facility] Functional Status Date Assessment Result Facility 01-03-2024 Are you deaf, or do you have serious difficulty hearing No 01/03/2024 10:37 AM Tyra Patiño, PAULETTE No [facility] 01-03-2024 Are you blind, or do you have serious difficulty seeing, even when wearing glasses No 01/03/2024 10:37 AM Tyra Patiño, PAULETTE No [facility] 01-03-2024 Do you have serious difficulty walking or climbing stairs No 01/03/2024 10:37 AM Tyra Patiño, PAULETTE No [facility] 01-03-2024 Do you have difficul ty dressing or bathing No 01/03/2024 10:37 AM Tyra Patiño, PAULETTE No [facility] 01-03-2024 Because of a physica l, mental, or emotional condition, do you have difficulty doing errands alone such as visiting a physician's office or shopping Yes 01/03/2024 10:37 AM Tyra Patiño, PAULETTE Yes [facility] Mental Status Date Assessment Result Facility 01-03-2024 Because of a physica l, mental, or emotional condition, do you have serious difficulty concentrating, remembering, or making decisions Yes 01/03/2024 10:37 AM Tyra Patiño, PAULETTE Yes [facility] Clinical Notes 10-06-2019 to 02-24-2025 Telephone Encounter - Yoselyn Cote MA - 02/23/2025 1:04 PM EDTTelephone Encounter - Yoselyn Cote MA - 02/23/2025 1:04 PM EDTTelephone Encounter - Gunjan Castillo MD - 02/23/2025 12:33 PM EDT Note Date & Type Note Facility 02-24-2025 Note Sinus rhythm Ventricular premature complex Abnormal R-wave progression, early transition No previous ECG available for comparison Electronically Signed On 02-24-2025 10:47:30 EDT by Fabricio HAMILTON 02-24-2025 Note IMPRESSION: Sinus rhythm Ventricular premature complex Abnormal R-wave progression, early transition No previous ECG available for comparison Electronically Signed On 04-18-2025 10:47:30 EDT by [facility] 02-23-2025 Telephone encounter Note Requested papers were signed by Dr Castillo and faxed to [phone]. [facility] 02-23-2025 Miscellaneous Notes Requested papers were signed by Dr Castillo and faxed to [phone]. Thanks! Patient will be moving into [facility]. They need the following per daughter: -History and Physical -Face Sheet -Med List -Progress Notes -Discharge orders ( statement from the physician recommending [facility]) They could be sent by email or fax to [email or web address]: [phone]" Can you print out today's note, today's letter, a facesheet, and a medication list? Once I sign the note/letter, then this can be faxed to [facility]. Thanks! I spoke to Elizabeth and she said it was recently changed to: 25 mg at 10:00 am, 25 mg at 2:00 pm, 50 mg at 5:00 pm and 50 mg at 8:00 pm Can you call and confirm the quetiapine (Seroquel) dosing with daughter Elizabeth? We have the dose as 50 mg at lunch, 50 mg at 4 pm, and 100 mg at 8 pm. I want to make sure it is correct on the Med list for the jail documented in this encounter [facility] 02-23-2025 Telephone encounter Note Thanks! Patient will be moving into [facility]. They need the following per daughter: -History and Physical -Face Sheet -Med List -Progress Notes -Discharge orders ( statement from the physician recommending [facility]) They could be sent by email or fax to Gail Ortiz ENEDINA [email or web address] F: [phone]" Can you print out today's note, today's letter, a facesheet, and a medication list? Once I sign the note/letter, then this can be faxed to [facility]. Thanks! [facility] 02-23-2025 Telephone encounter Note I spoke to Elizabeth and she said it was recently changed to: 25 mg at 10:00 am, 25 mg at 2:00 pm, 50 mg at 5:00 pm and 50 mg at 8:00 pm [facility] 02-23-2025 Telephone encounter Note Can you call and confirm the quetiapine (Seroquel) dosing with daughter Elizabeth? We have the dose as 50 mg at lunch, 50 mg at 4 pm, and 100 mg at 8 pm. I want to make sure it is correct on the Med list for the jail [facility] 02-23-2025 History of Present illness Narrative Images from the original note were not included. [facility] [address] Dept: [phone] Dept Loc: [phone] Visit type: [facility] Follow Up Visit Reason for Visit: Memory Loss Visit Date: 02/23/2025 Assessment and Plan 1. 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 Irregular heart rate - ECG 12 lead 3. Primary hypertension Alzheimer's Disease -Moderate-Severe stage of Alzheimer's Disease complicated by evening agitation -Continue donepezil 10 mg daily -Continue memantine 10 mg BID -Continue zoloft 100 mg daily for mood -She is on seroquel (see below for doing) and ambien 10 mg nightly PRN. These are prescribed and managed by neurology at [facility] -We did call daughter Elizabeth to confirm seroquel dosing. Neurology manages. She reported the seroquel is currently dosed at: 25 mg at 10:00 am, 25 mg at 2:00 pm, 50 mg at 5:00 pm and 50 mg at 8:00 pm -Plan is for patient to move into [facility] care unit. 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 Needs 24/ supervision due wandering risk. Needs medication administration by a caregiver. Needs assistance with ADLs (bathing, dressing, toileting). Hypertension: -Controlled. On metoprolol, which PCP manages. Irregular Heart Rate: -Did note irregular heart rate on exam. Sounded like occasional skipped beats but will check EKG to confirm this Follow up in about 6 months (around 08/25/2025). Subjective HPI: Cyndee Vital is a 79 y.o. female with past medical history of Alzheimer's Disease, hypertension, depression who presents to the [facility] for a follow-up visit. The patient is known to me. Chart Review: First seen in October 2021. MOCA . Diagnosed with mild Alzheimer's Disease -August 2022. Continued aricept. Continue zoloft to help with mood. Having some issues with hallucinations. Discussed that one day she may need antipsychotic to help manage them. No ADL issues. Still driving. MOCA was a -February 2023: She is enrolled in a clinical trial for Alzheimer's Disease. Subjectively, cognition stable. MOCA did decline to 15. MIS 01/21 Zoloft increased to 100 mg daily to help with anxiety/skin picking. -October 2023: MOCA score declined to 10/08. More forgetful and needing more cueing. Referred to Occupational Therapy for driving evaluation. Started back on Vitamin D. Continued on aricept, namenda, and zoloft. -Did receive a message that patient no longer driving. -February 2024: MOCA 06/07. The physicians at her research study had placed her on seroquel for behavioral disturbance. Now with 01/06 care at home -Last seen in August 2024: Behaviors/Mood stable on the seroquel prescribed by her [facility]. They had prescribed ambien for sleep as well. MMSE 11/07 Received [employer] message from the family: Patient will be moving into a memory care unit at [facility]. Will do the H and P for admission at today's appointment History obtained from caregiver(s): Son Hao -Her cognition has continued to decline. Communication skills have really declined. Doesn't comprehend what family says - even instructions like "wash your hands". -Unsteady on her feet. Not using a cane or a walker. No falls recently. -Mood: Does get mad at times. Can be "more mean". Gets more agitation in the evenings. Will be restless and say she "wants to go home". Occasionally she has tried to become physically combative with her daughter in the evenings (when she "wants to escape"). 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 -Sleep: Better now. -Appetite: Still eats well. Does play with her food a lot. -Hallucinations: No -No physical health issues. -Goes to on walks with her caregiver. History obtained from patient: -Things going well. -Memory: "pretty good". No trouble noticed. -Mood: Doing well. Doesn't feel down or hopeless. No stress or worry. -Sleep: "I like to go to bed". -Appetite: Good. -Physical health: Good. No aches or pains. No fevers or nausea. Stomach feels good. Breathing feels fine. -Vision: wears glasses. She says: "I see you". -Hallucinations: none. -Hearing: good. -Walking: good. Reviewed progress notes completed by ALFREDO RUEDA) and social work. No Known Allergies Current Outpatient Medications Medication Sig Dispense Refill donepezil (Aricept) 10 MG tablet Take 1 tablet (10 mg) by mouth Nightly. 90 tablet 1 Folic Acid (FOLATE PO) Take by mouth. Loperamide HCl (IMODIUM PO) Take 2 mg by mouth Daily as needed (diarrhea). PRN memantine (Namenda) 10 MG tablet Take 10 mg by mouth 2 times daily. metoprolol succinate XL (Toprol-XL) 25 MG 24 hr tablet Take 25 mg by mouth 2 times daily. Pyridoxine HCl (VITAMIN B-6 PO) Take by mouth. QUEtiapine (SEROquel) 50 MG tablet Take 50 mg by mouth See administration instructions. 25 mg at 10:00 am, 25 mg at 2:00 pm, 50 mg at 5:00 pm and 50 mg at 8:00 pm sertraline (Zoloft) 100 MG tablet Take 1 tablet (100 mg) by mouth daily. 30 tablet 11 zolpidem (Ambien) 10 MG tablet Take 10 mg by mouth Nightly as needed for sleep. No current facility-administered medications for this visit. Past Medical History: Diagnosis Date Acute maxillary sinusitis 02/26/2023 Alzheimer's disease (HCC) 02/17/2022 Anxiety Depressive disorder 02/26/2023 Fever 02/26/2023 Herpes zoster 02/26/2023 Hypertension 01/30/2023 Hypokalemia 02/26/2023 Pain in buttock 02/26/2023 Paroxysmal supraventricular tachycardia (HCC) 01/25/2021 Pure hypercholesterolemia 10/14/2019 PVC (premature ventricular contraction) 01/25/2021 Social History Tobacco Use Smoking status: Never Smokeless tobacco: Never Substance Use Topics Alcohol use: Not Currently Alcohol/week: 3.0 standard drinks of alcohol Past Surgical History: Procedure Laterality Date HYSTERECTOMY Family History Problem Relation Name Age of Onset Dementia Maternal Grandmother Zachary Jamil Family Status Relation Name Status LISA Jamil (Not Specified) No partnership data on file Objective Vitals: 02/23/25 0857 BP: 121/76 BP Location: Left arm Patient Position: Sitting BP Cuff Size: Adult Pulse: 78 Weight: 128 lb 6.4 oz (58.2 kg) Wt Readings from Last 3 Encounters: 02/23/25 128 lb 6.4 oz (58.2 kg) 08/25/24 137 lb 6.4 oz (62.3 kg) 02/25/24 128 lb (58.1 kg) Physical Exam Constitutional: General: She is not in acute distress. Appearance: She is not ill-appearing. HENT: Head: Normocephalic and atraumatic. Comments: Mucous membranes moist Cardiovascular: Rate and Rhythm: Normal rate. Rhythm irregular. Heart sounds: No murmur heard. No friction rub. No gallop. Pulmonary: Effort: Pulmonary effort is normal. Breath sounds: Normal breath sounds. No decreased breath sounds, wheezing, rhonchi or rales. Abdominal: General: There is no distension. Palpations: Abdomen is soft. Tenderness: There is no abdominal tenderness. There is no guarding or rebound. Musculoskeletal: Cervical back: Neck supple. Right lower leg: No edema. Left lower leg: No edema. Lymphadenopathy: Cervical: No cervical adenopathy. Neurological: Mental Status: She is alert. Cranial Nerves: No facial asymmetry. Motor: No weakness. Psychiatric: Attention and Perception: Attention normal. Mood and Affect: Mood and affect normal. Cognition and Memory: Cognition is impaired. Memory is impaired. Comments: Poor insight Data Reviewed and Summarized Testing: The following tests were performed at today's visit and scanned in to thechart: MMSE score:8/30 Clock drawing score: 0/7 PHQ-9 score: 0 I independently reviewed the Mini Mental Status Exam and Clock Draw Test from 02/23/2025. Test scanned in to the chart. I spent total time of 60 minutes face to face with the patient and/or family discussing the diagnosis and importance of compliance with the treatment plan as well as documenting on the day of the visit. In addition, that total time includes the following (this does not include the time spent in Advanced Care Planning which, if done, was documented elsewhere in the note): -Reviewing previous notes, -Reviewing labs, -Obtaining and/or reviewing separately obtained history, -Communicating results to the patient/family/caregiver, -Counseling/educating the patient/family/caregiver, -Documenting clinical information in the patients electronic record, -Coordination of care for the patient, and -Performing a medically appropriate exam and/or evaluation IGunjan MD, furnish ongoing care related to Cyndee Vital single, serious and complex condition(s) Dementia. I assume responsibility for the patient's ongoing medical care of this condition. Review of Systems Constitutional: Negative for appetite change, fatigue and unexpected weight change. HENT: Negative for dental problem, hearing loss and trouble swallowing. Eyes: Negative for visual disturbance. Gastrointestinal: Negative for constipation and diarrhea. Genitourinary: Negative for difficulty urinating and dysuria. Musculoskeletal: Negative for arthralgias, back pain and gait problem. Neurological: Negative for tremors, speech difficulty and weakness. Psychiatric/Behavioral: Positive for agitation, confusion, dysphoric mood and sleep disturbance. Negative for hallucinations. The patient is nervous/anxious. Senior Services/Geriatrics Social History Present at visit: patient, son Hao Marital status: Children: 2 children (both local) Living arrangement: alone, own condo, moved here close to daughter in 2018 from [place] >>02/17/22 same >>02/26/23 same >>10/22/23 same >>02/25/24 same- now has 24 hour live in aide >>08/25/24 same >>02/23/25 getting ready to move to jail, still currently at home with 24 hour aide Household safety problems: none >>02/17/22 none >>08/22/22 denies >>02/26/23 denies >>10/22/23 one fall outside >>02/25/24 fall >>08/25/24 none >>02/23/25 none Pets: Yes, 1 cat, no issues caring for cat >>08/22/22 gets feed regularly, cleaning litter box Guns in the home: No Wandering potential: No >>02/17/22 none >>08/22/22 denies >>02/26/23 denies >>10/22/23 denies >>02/25/24 is exit seeking, doesn't think her home is her home, family has now installed locks, security >>08/25/24 climbed out of the window, neighbor found her, now family installed alarms on window >>02/23/25 has climbed out a window this winter when it was -14 degrees outside. Went to a neighbors. 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 Activities: watches tv, spends time with cat >>02/17/22 just went on vacation, walks in condo, plays cards, plays piano, visiting friends >>08/22/22 outside, TV, cat sits out with neighbor, gnosticism, >>02/26/23 walks, visits with neighbors, gnosticism, kids' sports games, just came back from vacation >>10/22/23 same >>02/25/24 visits with aide, getting to physical therapy, going on walks >>08/25/24 visits with aides, goes to [facility], goes to [facility] >>02/23/25 same Exercise: walks around her house >>02/17/22 walking, weights >>08/22/22 walks around the condo or in her neighborhood >>02/26/23 walks >>10/22/23 walks >>02/25/24 walks, physical therapy >>08/25/24 walking, goint to [facility] Finances: meeting soon with Medicaid commercial real estate attorney Healthcare Power of Tube Pusher: Yes, Daughter Elziabeth Financial Power of Tube Pusher: Yes, Daughter Elizabeth Living Will: Yes Guardian:No Code Status: Full Code Primary Caregiver: daughterElizabeth overseeing aides, care- 24 hour aide assisting with day to day care/supervision >>08/25/24 same >>02/23/25 same Current care plan/supervision: daughter sees patient 2x/week, talks to her daily, son talks to her daily >>02/17/22 daughter comes over every day >>08/22/22 dtr sees her daily for shot, son in/out, calls >>02/26/23 same >>10/22/23 daughter sees patient every other day, son sees her sometimes >>02/25/24 has 24 hour daycare director, Xochitl who is living with her, another aide Anabell comes 10-15 hours per week to take patient places, does activities with her >>08/25/24 2 aides that come, providing 01/06 supervision, son and daughter alternate days to give aides time off >>02/23/25 same Community resources: None >>02/17/22 none >>08/22/22 no issues >>02/26/23 video monitors, gps tracker on car >>10/22/23 same >>02/25/24 aides 24 hours, video monitors, locks/alarms on doors, daughter sees patient daily >>08/25/24 24 hour aides, video monitors, alarms on doors/windows >>02/23/25 same Caregiver stressors: daughter denies stress; is concerned about the future >>02/17/22 daughter feeling less stress since they got her in a clinical trial >>02/26/23 some stress but manageable >>10/22/23 same >>02/25/24 less stress since aides are in place >>08/25/24 denies >>02/23/25 family feeling caregiver stress due to patient wandering, plan to move patient into locked memory unit Goals for care: evaluate memory, keep patient at home as long as possible, then possibly moving in with daughter As a Caregiver, What Matters Most to You: Planning for future needs According to daughter, patient more repetative during last few years, some suspicious behavior more recently, gets overwhelmed with new information >>02/17/22 Daughter has helped patient get into clinical trial for Alzheimer's. Patient is doing a little better in her function since starting the trial. Daughter has gotten an alarmed pill dispenser for patient; she is doing well with using that. No other resources given today. >>02/26/23 Patient remaining stable in function since last visit. Daughter getting patient into new clinical trial starting in March. Patient still very active. Daughter has added video monitors, GPS trackers on patient's car. Daughter also created a big bulletin board with photos/phone numbers of family members. SW suggested that daughter check out www.Look.[employer]. [employer] Information to check out any other products that may help keep patient as independent as possible. No resources given today. >>10/22/23 Patient misplaces things, daughter has apple tags/tiles on her items. Patient in a another new clinical trial, function is remaining very stable. Patient had a decline on memory test today. Daughter is providing good support and main objective is to keep patient as independent as possible. No resources given today. >>02/25/24 Patient has declined in memory and function. Had a fall, hit her head. Now declining much in function, having more behaviors. Trying to wander, agitated. Now on a medicine to calm those behaviors. Family now has obtained 24 hour aide and another aide who comes in 10-15 hours per week to provide care and supervision for patient. They've also installed video monitors, alarms and locks on doors. Patient has good support and goal is to keep her at home as long as possible with this level of care and supervision. No resources given today. >>08/25/24 Still has 24/7 aide, patient still involved with research study. Patient remaining mostly stable, may need a little more direction with personal care. Has good support. Patient did climb out of window and neighbor found her outside. Family now has installed alarms on all the windows. No resources given today. >>02/23/25 Patient still has 24 hour aide but family is planning on moving patient into a locked memory unit within next month. Patient continues to have episodes of wandering; once in very cold weather in winter, she got out of window and went to neighbors. No resources given today. Functional Status (I: Independent, A: Assisted, D: Dependent) ADLs I A D Notes Bathing [] [] [x] No issues >>02/17/22 no issues with personal care >>08/22/22 no issues with ADLs/hygiene >>02/26/23 same >>10/22/23 needs cuing to shower sometimes >>02/25/24 needs cuing to shower >>08/25/24 aides helping her shower, needs directed and cued >>02/23/25 same, hands on help Dressing [] [x] [] No issues >>10/22/23 no issues >>02/25/24 needs cuing, clothes are laid out for her >>08/25/24 same >>02/23/25 same Toileting [] [x] [] No issues >>10/22/23 no issues >>02/25/24 has accidents at night, wearing Depends, aides are helping with clean up >>08/25/24 same >>02/23/25 less accidents, wears the Depends Transfers [x] [] [] No issues >>10/22/23 no issues >>02/25/24 no issues >>08/25/24 no issues >>02/23/25 no issues Feeding [] [x] [] No issues >>10/22/23 no issues >>02/25/24 no issues >>08/25/24 no issues >>02/23/25 wll play with her food, cutting it into tiny pieces Ambulation [] [] [] Assistive devices: None IADLs I A D Telephone [] [] [x] Can dial, answer, text using phone, can set up own appointments but daughter helping her more with medical appointments, writes everything down on calendar, usually goes at the wrong time or a day early >>02/17/22 same, did set up a hair appt, seems like she is needing less reminders, daughter still helps >>08/22/22 landline, call/answer/text, not much on apps, does get on computer >>02/26/23 still using phone, daughter sets up appointments, not needing too many reminders >>10/22/23 can call and answer the phone, daughter sets up appointments, now needs reminders >>02/25/24 same >>08/25/24 same >>02/23/25 no longer using the phone Transportation [] [] [x] Driving safety concerns: still driving, no concerns about driving ability, has gotten lost >>02/17/22 driving no concerns, not getting lost >>08/22/22 stays local, daytime, no accidents/tickets/damage, new car and was able to adjust, dtr rides and feels safe, dtr tracks may put GPS on car, and add ring doorbell >>02/26/23 still driving locally, daughter added gps trackers to car, no concerns >>10/22/23 still driving, only locally, daughter tracks her, still no concerns >>02/25/24 none, family stopped her from driving Shopping [] [] [x] Patient does her own shopping, getting appropriate items for meals >>02/17/22 same >>08/22/22 mostly, dtr will do fresh foods, etc, goes to [employer] >>02/26/23 patient buys her dry products at [employer], daughter picks up the rest >>10/22/23 same >>02/25/24 son takes her shopping, son shops, Xochitl makes a list >>08/25/24 sister shops, berta makes list Meal prep [] [] [x] Still cooking, no issues >>02/17/22 same >>08/22/22 never been a big cooker, dtr does meals for her, microwave, basic stuff ,soup >>02/26/23 daughter takes over meals frequently, goes out to eat often, eats more prepared foods >>10/22/23 not forgetting to eat, mostly heating up prepared foods >>02/25/24 Xochitl hampton prepares food, puts in front of her >>08/25/24 same Housework [] [] [x] Still cleaning, no issues >>02/17/22 same >>08/22/22 immaculate >>02/26/23 same >>10/22/23 same >>02/25/24 Xochitl hampton cleans >>08/25/24 same Medications [] [] [x] Daughter not sure if patient using a pill box, no one monitoring, daughter thinks she is managing refills ok >>02/17/22 patient now using an alarmed dispenser, doing ok with that, no issues >>08/22/22 dtr sets up, then gives her shot >>02/26/23 still using alarmed dispenser, working great >>10/22/23 same >>02/25/24 daughter Elizabeth sets up pill dispenser, Xochitl makes sure patient is taking medications >>08/25/24 using 2 alarmed pill dispensers, Elizabeth sets up, aide or family administers Finances [] [] [x] Most bills on autopay, patient uses debit card, patient had missed paying real estate taxes- paid late, daughter on accounts and monitors >>02/17/22 same >>08/22/22 dtr handles , uses debit cards >>02/26/23 same >>10/22/23 same >>02/25/24 same >>08/25/24 same documented in this encounter [facility] 01-24-2025 Telephone encounter Note Request for refill received from interface Last appointment: 08/25/2024 Next appointment: 02/23/2025 Pharmacy confirmed: [x] Yes [] No [facility] 01-24-2025 Miscellaneous Notes Request for refill received from interface Last appointment: 08/25/2024 Next appointment: 02/23/2025 Pharmacy confirmed: [x] Yes [] No documented in this encounter [facility] 09-29-2024 History of Present illness Narrative RADIOLOGY SERVICE PROGRESS NOTE SERVICE DATE: 09/29/2024 SERVICE TIME: 2:27 PM PATIENT IDENTITY VERIFICATION COMPLETED USING TWO (2) STANDARD IDENTIFIERS: Name and Date of confirmed by patient verbally and Name and Date of confirmed by identification band FALL SCREENING: Has the patient had 2 falls in the last year or 1 fall with injury or currently using an Ambulatory Assistive Device (Walker, Cane, Wheelchair, Crutches, etc.)? Yes, Patient High Risk for Falls What interventions were put in place to prevent falls during this visit? Yellow "Falls Risk Wristband" Applied, Offered Assistance with Transfers/Clothing, and Increased Observations by Caregivers PATIENT GENDER DATA: .female : No ALLERGIES: Reviewed and unchanged MEDICATIONS REVIEWED: Yes PATIENT RELEVANT IMPLANT DATA REVIEWED: Not Applicable PATIENT PRESENTS WITH AN IMPLANTABLE OR ATTACHED STRATEGIC MARKETING LEADER: No CREATININE: Creatinine Date Value Ref Range Status 08/30/2024 1.13 (H) 0.58 - 0.96 mg/dL Final 01/13/2024 0.85 0.58 - 0.96 mg/dL Final 01/03/2024 0.81 0.58 - 0.96 mg/dL Final Estimated Glomerular Filtration Rate Date Value Ref Range Status 08/30/2024 50 (L) >=60 mL/min/1.73m Final Comment: Estimated Glomerular Filtration Rate (eGFR) is calculated using the 2020 CKD-EPI creatinine equation. This equation utilizes serum creatinine, sex, and age as parameters. The creatinine assay has traceable calibration to isotope dilution-mass spectrometry. Refer to KDIGO guidelines for clinical interpretation. In patients with unstable renal function, e.g. those with acute kidney injury, the eGFR may not accurately reflect actual GFR. eGFR- Date Value Ref Range Status 10/07/2019 >60 Final P.O.C.T. RESULTS: N/A September 29, [address] PERFORMED: No IV SITE: Ambulatory: A peripheral IV was started in the Right antecubital site with a Angio cath: 22 gauge. POST EXAM PIV STATUS: Discontinued PROCEDURE TYPE: NM INJECT: PET BRAIN SCAN. 10.8 mCi F18 Amyvid. No other medications given.. ADMINISTRATION TIME: 1424 PATIENT DISCHARGED TO: Ambulatory patient, left [place] department area. Is this a therapy: No A Diagnostic radioactive procedure has taken place, with no further precautions necessary other than routine body substance precautions. More information regarding radiation safety can be found using this link: [email or web address] %[email or web address] SIGNATURE: RT Shira(Colette) PATIENT NAME: Cyndee Vital DATE: September 29, 2024 TIME: 2:27 PM PAGER/CONTACT #: documented in this encounter [facility] 09-29-2024 Note HNO ID: [id number] Author: STYLES, RAISA, RT(R) Service: Radiology Author Type: Technologist Type: Progress Notes Filed: 09/29/2024 14:28 Note Text: RADIOLOGY SERVICE PROGRESS NOTE SERVICE DATE: 09/29/2024 SERVICE TIME: 2:27 PM PATIENT IDENTITY VERIFICATION COMPLETED USING TWO (2) STANDARD IDENTIFIERS: Name and Date of confirmed by patient verbally and Name and Date of confirmed by identification band FALL SCREENING: Has the patient had 2 falls in the last year or 1 fall with injury or currently using an Ambulatory Assistive Device (Walker, Cane, Wheelchair, Crutches, etc.)? Yes, Patient High Risk for Falls What interventions were put in place to prevent falls during this visit? Yellow "Falls Risk Wristband" Applied, Offered Assistance with Transfers/Clothing, and Increased Observations by Caregivers PATIENT GENDER DATA: .female : No ALLERGIES: Reviewed and unchanged MEDICATIONS REVIEWED: Yes PATIENT RELEVANT IMPLANT DATA REVIEWED: Not Applicable PATIENT PRESENTS WITH AN IMPLANTABLE OR ATTACHED STRATEGIC MARKETING LEADER: No CREATININE: Creatinine Date Value Ref Range Status 08/30/2024 1.13 (H) 0.58 - 0.96 mg/dL Final 01/13/2024 0.85 0.58 - 0.96 mg/dL Final 01/03/2024 0.81 0.58 - 0.96 mg/dL Final Estimated Glomerular Filtration Rate Date Value Ref Range Status 08/30/2024 50 (L) >=60 mL/min/1.73m? Final Comment: Estimated Glomerular Filtration Rate (eGFR) is calculated using the 2020 CKD-EPI creatinine equation. This equation utilizes serum creatinine, sex, and age as parameters. The creatinine assay has traceable calibration to isotope dilution-mass spectrometry. Refer to KDIGO guidelines for clinical interpretation. In patients with unstable renal function, e.g. those with acute kidney injury, the eGFR may not accurately reflect actual GFR. eGFR- Date Value Ref Range Status 10/07/2019 >60 Final P.O.C.T. RESULTS: N/A September 29, [address] PERFORMED: No IV SITE: Ambulatory: A peripheral IV was started in the Right antecubital site with a Angio cath: 22 gauge. POST EXAM PIV STATUS: Discontinued PROCEDURE TYPE: NM INJECT: PET BRAIN SCAN. 10.8 mCi F18 Amyvid. No other medications given.. ADMINISTRATION TIME: 1424 PATIENT DISCHARGED TO: Ambulatory patient, left [place] department area. Is this a therapy: No A Diagnostic radioactive procedure has taken place, with no further precautions necessary other than routine body substance precautions. More information regarding radiation safety can be found using this link: [email or web address]%20Nuclear%20Medicine% 20Procedures.[email or web address] SIGNATURE: Raisa Metzger RT(R) PATIENT NAME: Cyndee Vital DATE: September 29, 2024 TIME: 2:27 PM PAGER/CONTACT #: [facility] 09-19-2024 Telephone encounter Note CYNDEE VITAL \\ [id number] DOS: 09/29/24 PET INJ: 1430 PET 4: 1530 APPT NOTES: DO NOT SUBMIT AUTH TO INSURANCE, BILLED TO [employer] [id number] PET BRAIN AMYVID [employer] TRANSM[employer]AL FORM PET 2 ONLY NO CHARGE FOR DOSE [facility] 09-19-2024 Miscellaneous Notes CYNDEE VITAL \\ [id number] DOS: 09/29/24 PET INJ: 1430 PET 4: 1530 APPT NOTES: DO NOT SUBMIT AUTH TO INSURANCE, BILLED TO [employer] [id number] PET BRAIN AMYVID [employer]SM[employer]M PET 2 ONLY NO CHARGE FOR DOSE documented in this encounter [facility] 08-25-2024 History of Present illness Narrative Review of Systems Constitutional: Positive for unexpected weight change. Negative for appetite change, fatigue and fever. HENT: Negative for dental problem, hearing loss and trouble swallowing. Eyes: Negative for visual disturbance. Respiratory: Negative for cough and shortness of breath. Cardiovascular: Negative for leg swelling. Gastrointestinal: Negative for constipation and diarrhea. Genitourinary: Negative for difficulty urinating and dysuria. Musculoskeletal: Negative for arthralgias, back pain and gait problem. Neurological: Negative for tremors, speech difficulty and weakness. Psychiatric/Behavioral: Positive for confusion and sleep disturbance. Negative for agitation, dysphoric mood and hallucinations. The patient is nervous/anxious. Images from the original note were not included. [facility] [address] [facility] [address] Dept: [phone] Dept Loc: [phone] Visit type: [facility] Follow Up Visit Reason for Visit: Dementia Visit Date: 08/25/2024 Assessment and Plan 1. Alzheimer's dementia with behavioral disturbance (HCC) -Moderate-severe Alzheimer's Disease. Active with research study. -Behaviors/Mood improved on current medications (seroquel prescribed by research physicians). She is on Ambien for sleep (also prescribed by research physicians). Generally not a medication recommended for geriatric patients with dementia. However, she appears to be tolerating the medication and it is helping with her sleep. -Continue aricept and namanda -Continue zoloft -It is reasonable to discontinue the atorvastatin given her moderate-severe dementia and lack of strokes/heart disease history. Discussed with son that it is unknown if her risk of heart attack or stroke would increase following stopping atorvastatin. I asked son to check in with her PCP first before discontinuing as they are the prescribing physician Follow up in about 6 months (around 02/23/2025). Subjective HPI: Cyndee Vital is a 79 y.o. female with past medical history of Alzheimer's Disease, hypertension, depression who presents to the [facility] for a follow-up visit. The patient is known to me. Chart Review: First seen in October 2021. MOCA . Diagnosed with mild Alzheimer's Disease -August 2022. Continued aricept. Continue zoloft to help with mood. Having some issues with hallucinations. Discussed that one day she may need antipsychotic to help manage them. No ADL issues. Still driving. MOCA was a -February 2023: She is enrolled in a clinical trial for Alzheimer's Disease. Subjectively, cognition stable. MOCA did decline to 15. MIS 01/21 Zoloft increased to 100 mg daily to help with anxiety/skin picking. -October 2023: MOCA score declined to 10/08. More forgetful and needing more cueing. Referred to Occupational Therapy for driving evaluation. Started back on Vitamin D. Continued on aricept, namenda, and zoloft. -Did receive a message that patient no longer driving. -Last seen in February 2024: MOCA 06/07. The physicians at her research study had placed her on seroquel for behavioral disturbance. Now with 01/06 care at home History obtained from caregiver(s): Son Alpesh -Overall she has been doing well. Still active with the research study. Receiving injections/infusions. The "blooming" on her brain MRI cleared up. -The research physicians prescribe her seroquel and ambien. The seroquel is 50 mg at lunch, 50 mg at four pm, and 100 mg at bedside. This helps to control behaviors. No longer gets upset. -Did have one behavioral "blip" recently. On Thursday she crawled out a window and was found wandering outside. Now they put alarms on the window. Patient was later upset that she did that. -Research physicians suggested taking her off of the cholesterol medication. She has been on it for awhile - son thinks it was started for high cholesterol. No history of heart attacks or strokes. -She physically has been feeling well. Hasn't complained about sciatica. Appetite: Good. Pack Worker cooks for her. She has gained weight. -Still with 01/06 care. Sleep: Research physicians put her on ambien. She is tolerating this well. Sleep is overall better with the seroquel and ambien. Mood: Good overall. A little depressed at times. Upset she crawled out the window. History obtained from patient: Doing well today. Memory: "pretty good". No problems noticed. Sh does not think she receives any help during the day. Mood: doing well. No anxiety. Hallucination: None Sleep: good. Appetite: "I love to eat". Physically feeling well. No pains anywhere. Reviewed progress notes completed by ALFREDO (ROS) and social work. No Known Allergies Current Outpatient Medications Medication Sig Dispense Refill atorvastatin (Lipitor) 40 MG tablet Take 40 mg by mouth Nightly. donepezil (Aricept) 10 MG tablet Take 1 tablet (10 mg) by mouth Nightly. 90 tablet 1 Folic Acid (FOLATE PO) Take by mouth. Loperamide HCl (IMODIUM PO) Take by mouth. PRN memantine (Namenda) 10 MG tablet Take 10 mg by mouth 2 times daily. metoprolol succinate XL (Toprol-XL) 25 MG 24 hr tablet Take 25 mg by mouth 2 times daily. Pyridoxine HCl (VITAMIN B-6 PO) Take by mouth. QUEtiapine (SEROquel) 25 MG tablet Take 50 mg by mouth See administration instructions. Take 50 mg at lunch, 50mg at 4 and 100mg at 8pm sertraline (Zoloft) 100 MG tablet Take 1 tablet (100 mg) by mouth daily. 30 tablet 11 zolpidem (Ambien) 10 MG tablet Take 10 mg by mouth Nightly as needed for sleep. No current facility-administered medications for this visit. Past Medical History: Diagnosis Date Acute maxillary sinusitis 02/26/2023 Alzheimer's disease (HCC) 02/17/2022 Anxiety Depressive disorder 02/26/2023 Fever 02/26/2023 Herpes zoster 02/26/2023 Hypertension 01/30/2023 Hypokalemia 02/26/2023 Pain in buttock 02/26/2023 Paroxysmal supraventricular tachycardia (HCC) 01/25/2021 Pure hypercholesterolemia 10/14/2019 PVC (premature ventricular contraction) 01/25/2021 Social History Tobacco Use Smoking status: Never Smokeless tobacco: Never Substance Use Topics Alcohol use: Not Currently Alcohol/week: 3.0 standard drinks of alcohol Past Surgical History: Procedure Laterality Date HYSTERECTOMY Family History Problem Relation Name Age of Onset Dementia Maternal Grandmother Zachary Jamil Family Status Relation Name Status MGJanna Jamil (Not Specified) No partnership data on file Objective Vitals: 08/25/24 0844 BP: 119/74 BP Location: Right arm Patient Position: Sitting Pulse: 73 Weight: 137 lb 6.4 oz (62.3 kg) Wt Readings from Last 3 Encounters: 08/25/24 137 lb 6.4 oz (62.3 kg) 02/25/24 128 lb (58.1 kg) 10/22/23 128 lb 3.2 oz (58.2 kg) Physical Exam Constitutional: General: She is not in acute distress. Appearance: She is not ill-appearing. HENT: Head: Normocephalic and atraumatic. Cardiovascular: Rate and Rhythm: Normal rate and regular rhythm. Heart sounds: No murmur heard. No friction rub. No gallop. Pulmonary: Effort: Pulmonary effort is normal. Breath sounds: Normal breath sounds. No decreased breath sounds, wheezing, rhonchi or rales. Musculoskeletal: Right lower leg: No edema. Left lower leg: No edema. Neurological: Mental Status: She is alert. Psychiatric: Attention and Perception: Attention normal. Mood and Affect: Mood and affect normal. Cognition and Memory: Cognition is impaired. Memory is impaired. Data Reviewed and Summarized Testing: The following tests were performed at today's visit and scanned in to thechart: MMSE score:30 Clock drawing score: 1/7 PHQ-9 score: 0 I independently reviewed the Mini Mental Status Exam and Clock Draw Test from 08/25/2024. Test scanned in to the chart. I spent total time of 37 minutes face to face with the patient and/or family discussing the diagnosis and importance of compliance with the treatment plan as well as documenting on the day of the visit. In addition, that total time includes the following (this does not include the time spent in Advanced Care Planning which, if done, was documented elsewhere in the note): -Reviewing previous notes, -Reviewing labs, -Obtaining and/or reviewing separately obtained history, -Communicating results to the patient/family/caregiver, -Counseling/educating the patient/family/caregiver, -Documenting clinical information in the patients electronic record, -Coordination of care for the patient, and -Performing a medically appropriate exam and/or evaluation Senior Services/Geriatrics Social History Present at visit: patient, ninfa Bui Marital status: Children: 2 children (both local) Living arrangement: alone, own condo, moved here close to daughter in 2018 from [place] >>02/17/22 same >>02/26/23 same >>10/22/23 same >>02/25/24 same- now has 24 hour live in aide >>08/25/24 same Household safety problems: none >>02/17/22 none >>08/22/22 denies >>02/26/23 denies >>10/22/23 one fall outside >>02/25/24 fall >>08/25/24 none Pets: Yes, 1 cat, no issues caring for cat >>08/22/22 gets feed regularly, cleaning litter box Guns in the home: No Wandering potential: No >>02/17/22 none >>08/22/22 denies >>02/26/23 denies >>10/22/23 denies >>02/25/24 is exit seeking, doesn't think her home is her home, family has now installed locks, security >>08/25/24 climbed out of the window, neighbor found her, now family installed alarms on window Elder abuse: No >>02/17/22 none >>08/22/22 almost gave CC to someone on the phone and stopped, then called daughter >>02/26/23 denies >>10/22/23 denies, daughter has spam blockers on phone >>02/25/24 denies >>08/25/24 denies Alcohol/Drug Abuse History: has an occasional beer service: Yes: Spouse was a , served during [place] Highest level of education: some college 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 Activities: watches tv, spends time with cat >>02/17/22 just went on vacation, walks in [place], plays cards, plays piano, visiting friends >>08/22/22 outside, TV, cat sits out with neighbor, gnosticism, >>02/26/23 walks, visits with neighbors, gnosticism, kids' sports games, just came back from vacation >>10/22/23 same >>02/25/24 visits with aide, getting to physical therapy, going on walks >>08/25/24 visits with aides, goes to [facility], goes to [facility] Exercise: walks around her house >>02/17/22 walking, weights >>08/22/22 walks around the condo or in her neighborhood >>02/26/23 walks >>10/22/23 walks >>02/25/24 walks, physical therapy >>08/25/24 walking, goint to [facility] Finances: meeting soon with Medicaid commercial real estate attorney Healthcare Power of Tube Pusher: Yes, Daughter Elizabeth Financial Power of Tube Pusher: Yes, Daughter Elizabeth Living Will: Yes Guardian:No Code Status: Full Code Primary Caregiver: daughter, Elizabeth overseeing aides, care- 24 hour aide assisting with day to day care/supervision >>08/25/24 same Current care plan/supervision: daughter sees patient 2x/week, talks to her daily, son talks to her daily >>02/17/22 daughter comes over every day >>08/22/22 dtr sees her daily for shot, son in/out, calls >>02/26/23 same >>10/22/23 daughter sees patient every other day, son sees her sometimes >>02/25/24 has 24 hour daycare directorXochitl who is living with her, another aide Anabell comes 10-15 hours per week to take patient places, does activities with her >>08/25/24 2 aides that come, providing / supervision, son and daughter alternate days to give aides time off Community resources: None >>02/17/22 none >>08/22/22 no issues >>02/26/23 video monitors, gps tracker on car >>10/22/23 same >>02/25/24 aides 24 hours, video monitors, locks/alarms on doors, daughter sees patient daily >>08/25/24 24 hour aides, video monitors, alarms on doors/windows Caregiver stressors: daughter denies stress; is concerned about the future >>02/17/22 daughter feeling less stress since they got her in a clinical trial >>02/26/23 some stress but manageable >>10/22/23 same >>02/25/24 less stress since aides are in place >>08/25/24 denies Goals for care: evaluate memory, keep patient at home as long as possible, then possibly moving in with daughter As a Caregiver, What Matters Most to You: Planning for future needs According to daughter, patient more repetative during last few years, some suspicious behavior more recently, gets overwhelmed with new information >>02/17/22 Daughter has helped patient get into clinical trial for Alzheimer's. Patient is doing a little better in her function since starting the trial. Daughter has gotten an alarmed pill dispenser for patient; she is doing well with using that. No other resources given today. >>02/26/23 Patient remaining stable in function since last visit. Daughter getting patient into new clinical trial starting in March. Patient still very active. Daughter has added video monitors, GPS trackers on patient's car. Daughter also created a big bulletin board with photos/phone numbers of family members. SW suggested that daughter check out www.Look.io. [employer] Information to check out any other products that may help keep patient as independent as possible. No resources given today. >>10/22/23 Patient misplaces things, daughter has apple tags/tiles on her items. Patient in a another new clinical trial, function is remaining very stable. Patient had a decline on memory test today. Daughter is providing good support and main objective is to keep patient as independent as possible. No resources given today. >>02/25/24 Patient has declined in memory and function. Had a fall, hit her head. Now declining much in function, having more behaviors. Trying to wander, agitated. Now on a medicine to calm those behaviors. Family now has obtained 24 hour aide and another aide who comes in 10-15 hours per week to provide care and supervision for patient. They've also installed video monitors, alarms and locks on doors. Patient has good support and goal is to keep her at home as long as possible with this level of care and supervision. No resources given today. >>08/25/24 Still has 24/7 aide, patient still involved with research study. Patient remaining mostly stable, may need a little more direction with personal care. Has good support. Patient did climb out of window and neighbor found her outside. Family now has installed alarms on all the windows. No resources given today. Functional Status (I: Independent, A: Assisted, D: Dependent) ADLs I A D Notes Bathing [] [x] [] No issues >>02/17/22 no issues with personal care >>08/22/22 no issues with ADLs/hygiene >>02/26/23 same >>10/22/23 needs cuing to shower sometimes >>02/25/24 needs cuing to shower >>08/25/24 aides helping her shower, needs directed and cued Dressing [] [x] [] No issues >>10/22/23 no issues >>02/25/24 needs cuing, clothes are laid out for her >>08/25/24 same Toileting [] [x] [] No issues >>10/22/23 no issues >>02/25/24 has accidents at night, wearing Depends, aides are helping with clean up >>08/25/24 same Transfers [x] [] [] No issues >>10/22/23 no issues >>02/25/24 no issues >>08/25/24 no issues Feeding [x] [] [] No issues >>10/22/23 no issues >>02/25/24 no issues >>08/25/24 no issues Ambulation [] [] [] Assistive devices: None IADLs I A D Telephone [] [x] [] Can dial, answer, text using phone, can set up own appointments but daughter helping her more with medical appointments, writes everything down on calendar, usually goes at the wrong time or a day early >>02/17/22 same, did set up a hair appt, seems like she is needing less reminders, daughter still helps >>08/22/22 landline, call/answer/text, not much on apps, does get on computer >>02/26/23 still using phone, daughter sets up appointments, not needing too many reminders >>10/22/23 can call and answer the phone, daughter sets up appointments, now needs reminders >>02/25/24 same >>08/25/24 same Transportation [] [] [x] Driving safety concerns: still driving, no concerns about driving ability, has gotten lost >>02/17/22 driving no concerns, not getting lost >>08/22/22 stays local, daytime, no accidents/tickets/damage, new car and was able to adjust, dtr rides and feels safe, dtr tracks may put GPS on car, and add ring doorbell >>02/26/23 still driving locally, daughter added gps trackers to car, no concerns >>10/22/23 still driving, only locally, daughter tracks her, still no concerns >>02/25/24 none, family stopped her from driving Shopping [] [] [x] Patient does her own shopping, getting appropriate items for meals >>02/17/22 same >>08/22/22 mostly, dtr will do fresh foods, etc, goes to [employer] >>02/26/23 patient buys her dry products at [employer], daughter picks up the rest >>10/22/23 same >>02/25/24 son takes her shopping, son shops, February makes a list >>08/25/24 sister shops, berta makes list Meal prep [] [] [x] Still cooking, no issues >>02/17/22 same >>08/22/22 never been a big cooker, dtr does meals for her, microwave, basic stuff ,soup >>02/26/23 daughter takes over meals frequently, goes out to eat often, eats more prepared foods >>10/22/23 not forgetting to eat, mostly heating up prepared foods >>02/25/24 Xochitl hampton prepares food, puts in front of her >>08/25/24 same Housework [] [] [x] Still cleaning, no issues >>02/17/22 same >>08/22/22 immaculate >>02/26/23 same >>10/22/23 same >>02/25/24 Xochitl hampton cleans >>08/25/24 same Medications [] [] [x] Daughter not sure if patient using a pill box, no one monitoring, daughter thinks she is managing refills ok >>02/17/22 patient now using an alarmed dispenser, doing ok with that, no issues >>08/22/22 dtr sets up, then gives her shot >>02/26/23 still using alarmed dispenser, working great >>10/22/23 same >>02/25/24 daughter Elizabeth sets up pill dispenser, February makes sure patient is taking medications >>08/25/24 using 2 alarmed pill dispensers, Elizabeth sets up, aide or family administers Finances [] [] [x] Most bills on autopay, patient uses debit card, patient had missed paying real estate taxes- paid late, daughter on accounts and monitors >>02/17/22 same >>08/22/22 dtr handles , uses debit cards >>02/26/23 same >>10/22/23 same >>02/25/24 same >>08/25/24 same documented in this encounter [facility] 07-22-2024 Telephone encounter Note Ordering provider: Gunjan Castillo Date of last office visit: 02/25/24 Date of next office visit: 08/25/24 Updated/Validated preferred pharmacy: Yes [id number] - [place], [place] - [address] [phone] Patient instructed to contact the pharmacy prior to picking up the medication: Yes (1) Medication name: sertraline (Zoloft) 100 MG tablet Medication dosage: 100 mg (Miligrams Monthly quantity needed: 30 How many day supply requestin days Medication route: oral (PO) Medication administration time(s): daily If taking medication PRN, reason for taking medication: N/A If this is a controlled substance do you receive this or any other controlled medication from any other doctor or facility: N/A Date of last refill (see medication tab): 07/05/23 (2) Medication name: donepezil (Aricept) 10 MG tablet Medication dosage: 10 mg (Miligrams Monthly quantity needed: 30 How many day supply requestin days Medication route: oral (PO) Medication administration time(s): Take 1 tablet (10 mg) by mouth Nightly. If taking medication PRN, reason for taking medication: N/A If this is a controlled substance do you receive this or any other controlled medication from any other doctor or facility: N/A Date of last refill (see medication tab): 12/28/23 [facility] 07-22-2024 Miscellaneous Notes Ordering provider: Gunjan Castillo Date of last office visit: 02/25/24 Date of next office visit: 08/25/24 Updated/Validated preferred pharmacy: Yes [id number] - [place], [place] - [address] [phone] Patient instructed to contact the pharmacy prior to picking up the medication: Yes (1) Medication name: sertraline (Zoloft) 100 MG tablet Medication dosage: 100 mg (Miligrams Monthly quantity needed: 30 How many day supply requestin days Medication route: oral (PO) Medication administration time(s): daily If taking medication PRN, reason for taking medication: N/A If this is a controlled substance do you receive this or any other controlled medication from any other doctor or facility: N/A Date of last refill (see medication tab): 07/05/23 (2) Medication name: donepezil (Aricept) 10 MG tablet Medication dosage: 10 mg (Miligrams Monthly quantity needed: 30 How many day supply requestin days Medication route: oral (PO) Medication administration time(s): Take 1 tablet (10 mg) by mouth Nightly. If taking medication PRN, reason for taking medication: N/A If this is a controlled substance do you receive this or any other controlled medication from any other doctor or facility: N/A Date of last refill (see medication tab): 12/28/23 documented in this encounter [facility] 04-26-2024 History of Present illness Narrative RADIOLOGY SERVICE PROGRESS NOTE SERVICE DATE: 04/26/2024 SERVICE TIME: 2:22 PM PATIENT IDENTITY VERIFICATION COMPLETED USING TWO (2) STANDARD IDENTIFIERS: Name and Date of confirmed by patient verbally and Name and Date of confirmed by identification band FALL SCREENING: Has the patient had 2 falls in the last year or 1 fall with injury or currently using an Ambulatory Assistive Device (Walker, Cane, Wheelchair, Crutches, etc.)? No PATIENT GENDER DATA: .female : No ALLERGIES: Reviewed and unchanged MEDICATIONS REVIEWED: Not applicable PATIENT RELEVANT IMPLANT DATA REVIEWED: Not Applicable PATIENT PRESENTS WITH AN IMPLANTABLE OR ATTACHED STRATEGIC MARKETING LEADER: No CREATININE: Creatinine Date Value Ref Range Status 01/13/2024 0.85 0.58 - 0.96 mg/dL Final 01/03/2024 0.81 0.58 - 0.96 mg/dL Final 10/07/2019 0.73 0.58 - 0.96 mg/dL Final Estimated Glomerular Filtration Rate Date Value Ref Range Status 01/13/2024 71 >=60 mL/min/1.73m Final Comment: Estimated Glomerular Filtration Rate (eGFR) is calculated using the 2020 CKD-EPI creatinine equation. This equation utilizes serum creatinine, sex, and age as parameters. The creatinine assay has traceable calibration to isotope dilution-mass spectrometry. Refer to KDIGO guidelines for clinical interpretation. In patients with unstable renal function, e.g. those with acute kidney injury, the eGFR may not accurately reflect actual GFR. eGFR- Date Value Ref Range Status 10/07/2019 >60 Final P.O.C.T. RESULTS: N/A April 26, [address] PERFORMED: No IV SITE: Ambulatory: A peripheral IV was started in the Right antecubital site with a Angio cath: 24 gauge. POST EXAM PIV STATUS: Discontinued PROCEDURE TYPE: NM INJECT: PET Research BRAIN SCAN. 11.8 mCi F18 Amyvid. No other medications given.. ADMINISTRATION TIME: 14:16 PATIENT DISCHARGED TO: Ambulatory patient, left [place] department area. A Diagnostic radioactive procedure has taken place, with no further precautions necessary other than routine body substance precautions. More information regarding radiation safety can be found using this link: [email or web address] %[email or web address] SIGNATURE: MERLINE Dan) PATIENT NAME: Cyndee Vital DATE: April 26, 2024 TIME: 2:22 PM PAGER/CONTACT #: documented in this encounter [facility] 04-26-2024 Note HNO ID: [id number] Author: EMERSON MOCTEZUMA RT(R) Service: Nuclear Medicine Author Type: Technologist Type: Progress Notes Filed: 04/26/2024 14:45 Note Text: RADIOLOGY SERVICE PROGRESS NOTE SERVICE DATE: 04/26/2024 SERVICE TIME: 2:22 PM PATIENT IDENTITY VERIFICATION COMPLETED USING TWO (2) STANDARD IDENTIFIERS: Name and Date of confirmed by patient verbally and Name and Date of confirmed by identification band FALL SCREENING: Has the patient had 2 falls in the last year or 1 fall with injury or currently using an Ambulatory Assistive Device (Walker, Cane, Wheelchair, Crutches, etc.)? No PATIENT GENDER DATA: .female : No ALLERGIES: Reviewed and unchanged MEDICATIONS REVIEWED: Not applicable PATIENT RELEVANT IMPLANT DATA REVIEWED: Not Applicable PATIENT PRESENTS WITH AN IMPLANTABLE OR ATTACHED STRATEGIC MARKETING LEADER: No CREATININE: Creatinine Date Value Ref Range Status 01/13/2024 0.85 0.58 - 0.96 mg/dL Final 01/03/2024 0.81 0.58 - 0.96 mg/dL Final 10/07/2019 0.73 0.58 - 0.96 mg/dL Final Estimated Glomerular Filtration Rate Date Value Ref Range Status 01/13/2024 71 >=60 mL/min/1.73m? Final Comment: Estimated Glomerular Filtration Rate (eGFR) is calculated using the 2020 CKD-EPI creatinine equation. This equation utilizes serum creatinine, sex, and age as parameters. The creatinine assay has traceable calibration to isotope dilution-mass spectrometry. Refer to KDIGO guidelines for clinical interpretation. In patients with unstable renal function, e.g. those with acute kidney injury, the eGFR may not accurately reflect actual GFR. eGFR- Date Value Ref Range Status 10/07/2019 >60 Final P.O.C.T. RESULTS: N/A April 26, [address] PERFORMED: No IV SITE: Ambulatory: A peripheral IV was started in the Right antecubital site with a Angio cath: 24 gauge. POST EXAM PIV STATUS: Discontinued PROCEDURE TYPE: NM INJECT: PET Research BRAIN SCAN. 11.8 mCi F18 Amyvid. No other medications given.. ADMINISTRATION TIME: 14:16 PATIENT DISCHARGED TO: Ambulatory patient, left [place] department area. A Diagnostic radioactive procedure has taken place, with no further precautions necessary other than routine body substance precautions. More information regarding radiation safety can be found using this link: [email or web address] 20Diagnostic%20Nuclear%20Medicine% 20Procedures.pdf SIGNATURE: RT Sy(R) PATIENT NAME: Cyndee Vital DATE: April 26, 2024 TIME: 2:22 PM PAGER/CONTACT #: [facility] 04-18-2024 Telephone encounter Note Scheduled as requested 04/26 @ 1530 [facility] 04-18-2024 Miscellaneous Notes Scheduled as requested 04/26 @ 1530 CYNDEE VITAL \\ [id number] DOS: 04/26/24 PET INJ: 1430 PET 2: 1530 APPT NOTES: DO NOT SUBMIT AUTH TO INSURANCE, BILLED TO [employer] [id number] PET BRAIN AMYVID [employer] TRANSMITTAL FORM PET 2 ONLY documented in this encounter [facility] 04-18-2024 Telephone encounter Note CYNDEE VITAL \\ [id number] DOS: 04/26/24 PET INJ: 1430 PET 2: 1530 APPT NOTES: DO NOT SUBMIT AUTH TO INSURANCE, BILLED TO [employer] [id number] PET BRAIN AMYVID [employer]SM[employer]M PET 2 ONLY [facility] 02-25-2024 History of Present illness Narrative Review of Systems Constitutional: Negative for appetite change, fatigue, fever and unexpected weight change. HENT: Negative for dental problem, hearing loss and trouble swallowing. Eyes: Negative for visual disturbance. Respiratory: Negative for cough and shortness of breath. Cardiovascular: Negative for leg swelling. Gastrointestinal: Negative for constipation and diarrhea. Genitourinary: Negative for difficulty urinating and dysuria. Musculoskeletal: Positive for back pain and gait problem. Negative for arthralgias. Neurological: Positive for weakness. Negative for tremors and speech difficulty. Psychiatric/Behavioral: Positive for agitation, confusion, dysphoric mood, hallucinations and sleep disturbance. The patient is nervous/anxious. Images from the original note were not included. [facility] [address] [facility] [address] Dept: [phone] Dept Loc: [phone] Visit type: [facility] Follow Up Visit Reason for Visit: Dementia Visit Date: 02/25/2024 Assessment and Plan 1. Alzheimer's dementia with behavioral disturbance (HCC) -Seroquel appropriate for her behaviors and appears to be helping. She is currently on 12.5 mg in AM, 12.5 mg in afternoon, and 37.5 mg nightly. Management per her physicians in her research study -she had an MRI brain through the research study which was read has an acute lacunar infarct. Son reports that he has been told by the research study physicians that the medication can cause changes that look like strokes. Other than her dementia, she did not have neuro deficits on exam. -Continue aricept and namenda -Continue zoloft for mood -Now with 24/7 care in her home. Will eventually transition into a jail but family want to keep her home as long as possible. Follow up in about 6 months (around 08/26/2024). Subjective HPI: Cyndee Vital is a 78 y.o. female with past medical history of Alzheimer's Disease, hypertension, depression who presents to the [facility] for a follow-up visit. The patient is known to me. Chart Review: First seen in October 2021. MOCA . Repeating questions more. Getting overwhelmed with too much information. Diagnosed with mild Alzheimer's Disease -August 2022. Continued aricept. Continue zoloft to help with mood. Having some issues with hallucinations. Discussed that one day she may need antipsychotic to help manage them. No ADL issues. Still driving. MOCA was a -February 2023: She is enrolled in a clinical trial for Alzheimer's Disease. Subjectively, cognition stable. MOCA did decline to 15/30. MIS 01/21 Zoloft increased to 100 mg daily to help with anxiety/skin picking. -Last seen in October 2023: MOCA score declined to 11/30. More forgetful and needing more cueing. Referred to Occupational Therapy for driving evaluation. Started back on Vitamin D. Continued on aricept, namenda, and zoloft. -Did receive a message that patient no longer driving. -She was hospitalized at the end of December 2023: abdominal/back pain. [place] it was related to sciatica. Also tested positive for COVID. -Seen in ER on 01/12: she had a fall off the toilet and hit the back of her had. She had been taking flexeril for back pain. -In middle of January, daughter called in concerned about behavior changes. Patient left her condo, approached a food safety auditor, and asked them to take her home. She was in a panic. -She had an MRI on 02/01/24 as part of her research steady. It was read as the following: SMALL FOCAL RESTRICTED DIFFUSION SUGGESTIVE OF ACUTE LACUNAR INFARCT INVOLVING THE LEFT OCCIPITAL PERIVENTRICULAR WHITE MATTER. MILD GENERALIZED BRAIN PARENCHYMAL VOLUME LOSS. NONSPECIFIC SMALL FOCI OF HIGH T2 SIGNAL INTENSITY SEEN INVOLVING THE WHITE MATTER, LIKELY REPRESENTING MILD CHRONIC MICROVASCULAR ISCHEMIC CHANGES VERSUS DEMYELINATION. PUNCTATE FLAIR HYPERINTENSE FOCI INVOLVING THE IMAGED UPPER CERVICAL CORD, PERHAPS FOCI OF DEMYELINATION. SMALL OLD LEFT TEJADA RADIATA LACUNAR INFARCT. SMALL FOCI OF SUSCEPTIBILITY IN THE BILATERAL FRONTAL REGIONS MAY REPRESENT HEMOSIDEROSIS FROM PRIOR SUBARACHNOID HEMORRHAGE. " -started on folate and vitamin B6 History obtained from caregiver(s): Son Alpesh -She has had a lot of cognitive decline since she was last seen in October. -In , she was complaining of sciatica. She was started on flexeril. Was living by herself at that time. Daughter broke her leg and couldn't help out as much. Couldn't check in every day. Patient started to cognitively decline. -She had a fall and hit her head in early january. She went to the hospital. No blood on the brain. However, hasn't recovered from that episode. She is unsteady on her feet. She now has 24/7 care. She gets "mean and agitated". She tries to run away. Police had to pick her up and bring her back. -She continues in the dementia research trial. Gets a shot once a week. She gets MRIs once a month. Sees the physicians there regularly (at least once a month). Son was told that on the last MRI (in January) there were changes. He was told that the medication caused "blooming" changes that can look like a stroke. She is getting another Mri next week -the physicians in her research trial have started her on seroquel for behaviors. She takes 25 mg twice during the day and a 50 mg nightly. -The seroquel has been helping. She is not as mad and nasty. More re-directable. Doesn't want to run away as much. -On Thursday evening, she ran out of seroquel. Daughter was bringing over the new bottle. However, her agitation increased without the seroquel and she ran away from the house. Police brought her back -She now has a live in daycare manager and is receiving 24/7 care. Son is hopeful this can continue for awhile. Family is looking into nursing homes, knowing that one day she will have to move into one. -Hallucinations: Yes. Especially when she was on the flexeril. Will also reach out for things in her sleep. -Sleep: Seroquel has been helping -Appetite: Good. Likely weight gain. Memory: poor. Comprehension: poor. Always losing things. 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 Mood: No tearfulness. Does have periods of contentment/happiness. However, she can get mad. Says "I want to go home" even when she is at home. History obtained from patient: -She feels she is doing pretty well -memory: "not as clear as it used to be". Not able to answer questions on the test today -She says she is not receiving help in her home. -Mood: "I think it's been doing good". No anxiety. Occasionally feels "down". Not irritated -No hallucinations. -Appetite: "I like to eat" -Sleep: Seems well. -Physically been feeling well. Reviewed progress notes completed by ALFREDO RUEDA) and social work. No Known Allergies Current Outpatient Medications Medication Sig Dispense Refill atorvastatin (Lipitor) 40 MG tablet Take 40 mg by mouth Nightly. donepezil (Aricept) 10 MG tablet Take 1 tablet (10 mg) by mouth Nightly. 90 tablet 1 Folic Acid (FOLATE PO) Take by mouth. Loperamide HCl (IMODIUM PO) Take by mouth. PRN memantine (Namenda) 10 MG tablet Take 10 mg by mouth 2 times daily. metoprolol succinate XL (Toprol-XL) 25 MG 24 hr tablet Take 25 mg by mouth 2 times daily. Pyridoxine HCl (VITAMIN B-6 PO) Take by mouth. QUEtiapine (SEROquel) 25 MG tablet Take 12.5 mg by mouth See administration instructions. Take 12.5 mg in Am, 12.5 mg in PM, and 37.5 mg nightly sertraline (Zoloft) 100 MG tablet Take 1 tablet (100 mg) by mouth daily. 30 tablet 6 No current facility-administered medications for this visit. Past Medical History: Diagnosis Date Acute maxillary sinusitis 02/26/2023 Alzheimer's disease (HCC) 02/17/2022 Anxiety Depressive disorder 02/26/2023 Fever 02/26/2023 Herpes zoster 02/26/2023 Hypertension 01/30/2023 Hypokalemia 02/26/2023 Pain in buttock 02/26/2023 Paroxysmal supraventricular tachycardia (HCC) 01/25/2021 Pure hypercholesterolemia 10/14/2019 PVC (premature ventricular contraction) 01/25/2021 Social History Tobacco Use Smoking status: Never Smokeless tobacco: Never Substance Use Topics Alcohol use: Not Currently Alcohol/week: 3.0 standard drinks of alcohol Past Surgical History: Procedure Laterality Date HYSTERECTOMY Family History Problem Relation Name Age of Onset Dementia Maternal Grandmother Family Status Relation Name Status MG (Not Specified) Objective Vitals: 02/25/24 0853 BP: 94/60 BP Location: Right arm Patient Position: Sitting Pulse: 69 Weight: 128 lb (58.1 kg) Wt Readings from Last 3 Encounters: 02/25/24 128 lb (58.1 kg) 10/22/23 128 lb 3.2 oz (58.2 kg) 02/26/23 114 lb 12.8 oz (52.1 kg) Physical Exam Constitutional: General: She is not in acute distress. Appearance: She is not ill-appearing. HENT: Head: Normocephalic and atraumatic. Cardiovascular: Rate and Rhythm: Normal rate and regular rhythm. Heart sounds: No murmur heard. No friction rub. No gallop. Pulmonary: Effort: Pulmonary effort is normal. Breath sounds: Normal breath sounds. No decreased breath sounds, wheezing, rhonchi or rales. Musculoskeletal: Right lower leg: No edema. Left lower leg: No edema. Neurological: Mental Status: She is alert. Cranial Nerves: No facial asymmetry. Motor: Motor function is intact. Coordination: Anuepb-Oxcj-Mhigol Test normal. Psychiatric: Attention and Perception: Attention normal. Mood and Affect: Mood and affect normal. Speech: Speech normal. Cognition and Memory: Cognition is impaired. Memory is impaired. Comments: Poor insight Data Reviewed and Summarized Testing: The following tests were performed at today's visit and scanned in to thechart: MoCA score: 7/30, MIS score: 4/15 Clock drawing score: 2/7 PHQ-9 score: 1 I independently reviewed the [place] Cognitive Assessment from 02/25/2024. Test scanned in to the chart. I spent total time of 67 minutes face to face with the patient and/or family discussing the diagnosis and importance of compliance with the treatment plan as well as documenting on the day of the visit. In addition, that total time includes the following: -Reviewing previous notes, -Reviewing previous cognitive tests, -Obtaining and/or reviewing separately obtained history, -Communicating results to the patient/family/caregiver, -Counseling/educating the patient/family/caregiver, -Documenting clinical information in the patients electronic record, -Coordination of care for the patient, and -Performing a medically appropriate exam and/or evaluation Senior Services/Geriatrics Social History Present at visit: patient, ninfa Bui Marital status: Children: 2 children (both local) Living arrangement: alone, own condo, moved here close to daughter in 2018 from [place] >>02/17/22 same >>02/26/23 same >>10/22/23 same >>02/25/24 same- now has 24 hour live in aide Household safety problems: none >>02/17/22 none >>08/22/22 denies >>02/26/23 denies >>10/22/23 one fall outside >>02/25/24 fall Pets: Yes, 1 cat, no issues caring for cat >>08/22/22 gets feed regularly, cleaning litter box Guns in the home: No Wandering potential: No >>02/17/22 none >>08/22/22 denies >>02/26/23 denies >>10/22/23 denies >>02/25/24 is exit seeking, doesn't think her home is her home, family has now installed locks, security Elder abuse: No >>02/17/22 none >>08/22/22 almost gave CC to someone on the phone and stopped, then called daughter >>02/26/23 denies >>10/22/23 denies, daughter has spam blockers on phone >>02/25/24 denies Alcohol/Drug Abuse History: has an occasional beer service: Yes: Spouse was a , served during [place] Highest level of education: some college 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 Activities: watches tv, spends time with cat >>02/17/22 just went on vacation, walks in condo, plays cards, plays piano, visiting friends >>08/22/22 outside, TV, cat sits out with neighbor, gnosticism, >>02/26/23 walks, visits with neighbors, gnosticism, kids' sports games, just came back from vacation >>10/22/23 same >>02/25/24 visits with aide, getting to physical therapy, going on walks Exercise: walks around her house >>02/17/22 walking, weights >>08/22/22 walks around the condo or in her neighborhood >>02/26/23 walks >>10/22/23 walks >>02/25/24 walks, physical therapy Finances: meeting soon with Medicaid commercial real estate attorney Healthcare Power of Tube Pusher: Yes, Daughter Elizabeth Financial Power of Tube Pusher: Yes, Daughter Elizabeth Living Will: Yes Guardian:No Code Status: Full Code Primary Caregiver: daughterElizabeth overseeing aides, care- 24 hour aide assisting with day to day care/supervision Current care plan/supervision: daughter sees patient 2x/week, talks to her daily, son talks to her daily >>02/17/22 daughter comes over every day >>08/22/22 dtr sees her daily for shot, son in/out, calls >>02/26/23 same >>10/22/23 daughter sees patient every other day, son sees her sometimes >>02/25/24 has 24 hour daycare director, Xochitl who is living with her, another aide Anabell comes 10-15 hours per week to take patient places, does activities with her Community resources: None >>02/17/22 none >>08/22/22 no issues >>02/26/23 video monitors, gps tracker on car >>10/22/23 same >>02/25/24 aides 24 hours, video monitors, locks/alarms on doors, daughter sees patient daily Caregiver stressors: daughter denies stress; is concerned about the future >>02/17/22 daughter feeling less stress since they got her in a clinical trial >>02/26/23 some stress but manageable >>10/22/23 same >>02/25/24 less stress since aides are in place Goals for care: evaluate memory, keep patient at home as long as possible, then possibly moving in with daughter As a Caregiver, What Matters Most to You: Planning for future needs According to daughter, patient more repetative during last few years, some suspicious behavior more recently, gets overwhelmed with new information >>02/17/22 Daughter has helped patient get into clinical trial for Alzheimer's. Patient is doing a little better in her function since starting the trial. Daughter has gotten an alarmed pill dispenser for patient; she is doing well with using that. No other resources given today. >>02/26/23 Patient remaining stable in function since last visit. Daughter getting patient into new clinical trial starting in March. Patient still very active. Daughter has added video monitors, GPS trackers on patient's car. Daughter also created a big bulletin board with photos/phone numbers of family members. SW suggested that daughter check out www.[employer]. [employer] Information to check out any other products that may help keep patient as independent as possible. No resources given today. >>10/22/23 Patient misplaces things, daughter has apple tags/tiles on her items. Patient in a another new clinical trial, function is remaining very stable. Patient had a decline on memory test today. Daughter is providing good support and main objective is to keep patient as independent as possible. No resources given today. >>02/25/24 Patient has declined in memory and function. Had a fall, hit her head. Now declining much in function, having more behaviors. Trying to wander, agitated. Now on a medicine to calm those behaviors. Family now has obtained 24 hour aide and another aide who comes in 10-15 hours per week to provide care and supervision for patient. They've also installed video monitors, alarms and locks on doors. Patient has good support and goal is to keep her at home as long as possible with this level of care and supervision. No resources given today. Functional Status (I: Independent, A: Assisted, D: Dependent) ADLs I A D Notes Bathing [] [x] [] No issues >>02/17/22 no issues with personal care >>08/22/22 no issues with ADLs/hygiene >>02/26/23 same >>10/22/23 needs cuing to shower sometimes >>02/25/24 needs cuing to shower Dressing [] [x] [] No issues >>10/22/23 no issues >>02/25/24 needs cuing, clothes are laid out for her Toileting [] [x] [] No issues >>10/22/23 no issues >>02/25/24 has accidents at night, wearing Depends, aides are helping with clean up Transfers [x] [] [] No issues >>10/22/23 no issues >>02/25/24 no issues Feeding [x] [] [] No issues >>10/22/23 no issues >>02/25/24 no issues Ambulation [] [] [] Assistive devices: None IADLs I A D Telephone [] [x] [] Can dial, answer, text using phone, can set up own appointments but daughter helping her more with medical appointments, writes everything down on calendar, usually goes at the wrong time or a day early >>02/17/22 same, did set up a hair appt, seems like she is needing less reminders, daughter still helps >>08/22/22 landline, call/answer/text, not much on apps, does get on computer >>02/26/23 still using phone, daughter sets up appointments, not needing too many reminders >>10/22/23 can call and answer the phone, daughter sets up appointments, now needs reminders >>02/25/24 same Transportation [] [] [x] Driving safety concerns: still driving, no concerns about driving ability, has gotten lost >>02/17/22 driving no concerns, not getting lost >>08/22/22 stays local, daytime, no accidents/tickets/damage, new car and was able to adjust, dtr rides and feels safe, dtr tracks may put GPS on car, and add ring doorbell >>02/26/23 still driving locally, daughter added gps trackers to car, no concerns >>10/22/23 still driving, only locally, daughter tracks her, still no concerns >>02/25/24 none, family stopped her from driving Shopping [] [] [x] Patient does her own shopping, getting appropriate items for meals >>02/17/22 same >>08/22/22 mostly, dtr will do fresh foods, etc, goes to [employer] >>02/26/23 patient buys her dry products at [employer], daughter picks up the rest >>10/22/23 same >>02/25/24 son takes her shopping, son shops, February makes a list Meal prep [] [] [x] Still cooking, no issues >>02/17/22 same >>08/22/22 never been a big cooker, dtr does meals for her, microwave, basic stuff ,soup >>02/26/23 daughter takes over meals frequently, goes out to eat often, eats more prepared foods >>10/22/23 not forgetting to eat, mostly heating up prepared foods >>02/25/24 berta, Xochitl prepares food, puts in front of her Housework [] [] [x] Still cleaning, no issues >>02/17/22 same >>08/22/22 immaculate >>02/26/23 same >>10/22/23 same >>02/25/24 aide, February cleans Medications [] [] [x] Daughter not sure if patient using a pill box, no one monitoring, daughter thinks she is managing refills ok >>02/17/22 patient now using an alarmed dispenser, doing ok with that, no issues >>08/22/22 dtr sets up, then gives her shot >>02/26/23 still using alarmed dispenser, working great >>10/22/23 same >>02/25/24 daughter Elizabeth sets up pill dispenser, February makes sure patient is taking medications Finances [] [x] [x] Most bills on autopay, patient uses debit card, patient had missed paying real estate taxes- paid late, daughter on accounts and monitors >>02/17/22 same >>08/22/22 dtr handles , uses debit cards >>02/26/23 same >>10/22/23 same >>02/25/24 same documented in this encounter [facility] 02-01-2024 History of Present illness Narrative Radiology Service Progress Note PATIENT NAME: Cyndee Vital DATE OF SERVICE: February 01, 2024 TIME: 10:07 AM PATIENT IDENTITY VERIFICATION COMPLETED USING TWO (2) IDENTIFIERS: Name and Date of confirmed by patient verbally. FALL SCREENING: Has the patient had 2 falls in the last year or 1 fall with injury or currently using an Ambulatory Assistive Device (Walker, Cane, Wheelchair, Crutches, etc.)? No PATIENT GENDER DATA: Female. status: : No status: NO. PATIENT RELEVANT IMPLANT DATA REVIEWED: Yes PATIENT PRESENTS WITH AN IMPLANTABLE OR ATTACHED STRATEGIC MARKETING LEADER: No RADIOLOGY DEPARTMENT: MR; Exam(s) Completed: Head: Routine Brain PERIPHERAL IV DATA: Not applicable SIGNED BY: RT Radha(R) February 01, 2024 10:07 AM documented in this encounter [facility] 01-26-2024 Telephone encounter Note I spoke to daughter Elizabeth. I read her the instructions from Dr Bright verbatim. She understands she needs to be seen by PCP first available. I also got patient scheduled with jonathan 02/25/2024. [facility] 01-26-2024 Miscellaneous Notes I spoke to daughter Elizabeth. I read her the instructions from Dr Bright verbatim. She understands she needs to be seen by PCP first available. I also got patient scheduled with jonathan 02/25/2024. Noted thank you. Please have office schedule an appointment with us. Also should be seen by PCP to rule out medical causes of increased anxiety Late entry. Call returned at time of page. I spoke with [facility] nurse Yudy. I asked Yudy (nurse) to call patient's dtr back, encourage increased supervision of patient, and advised calling 911 if pt risk to herself or others and ensure she has close follow up with PCP (primary care provider) to rule out potential primary medical illness contributing to patient's symptoms over the last weeks and especially confusion today. Patient last seen by Dr. Castillo at outpatient dementia clinic on 10/22/23 along w Social Work(er) Yesica Coats. Sending to our medical scheduler Yoselyn to please schedule in the next 2-[address] Castillo if Dr. Castillo has any openings. Otherwise, can offer patient to see a different provider who has openings sooner if patient/family amenable. S: Patient's Daughter Elizabeth spoke with [facility] nurse regarding update to previous TE B: dramatic change in behavior recently A: Elizabeth states since calling earlier, they had an incident in which they had to call police. States Patient left her condo and approached a landscape person and asked them to take her home because she was confused and did not believe she lived there, Elizabeth states she was in a complete panic. [facility] Police took her to her home and Elizabeth went over to her house and is with her now and plans to stay with her tonight. Elizabeth mentions that after patient was brought back her caregiver that was hired was there and when she left the Patient started panicking again. States the last 3 weeks this type of behavior has progressed very rapidly. R: Secure chat sent to director of rehabilitation Provider Dr Bright who called and advised that Patient have increased supervision at home, if Daughter Elizabeth feels the Patient is a risk to herself or others she should call 911 and have the Patient taken to [facility] emergency room, also advised Elizabeth that they need to call PCP Dr Cook and have Patient evaluated. Elizabeth understands care advice. She is asking if Dr Castillo could follow up with her and schedule an appointment to see her. Message to Provider, please advise. No further needs at this time. Patient instructed to call back with new or worsening symptoms. S: Patient's daughter, Elizabeth spoke with [facility] nurse regarding anxiety and fear. B: Onset of symptoms/concern: x 3 weeks Hx-alzheimer's dementia A: Elizabeth reports mom is exhibiting really bizarre behavior, confused, frustrated, states it's out of character for her and reports it was a sudden change, daughter believed a lot of symptoms were due to reaction to flexeril; however, has been off medication for the past week and symptoms persist, taking Zoloft 100 mg daily. Elizabeth also mentioned mom is receiving weekly injections as part of a drug trial for her dementia. R: Elizabeth advised message would be sent to provider for follow up, verbalized understanding. Reason for Disposition Patient sounds very upset or troubled to the triager Protocols used: Anxiety and Panic [id number] documented in this encounter [facility] 01-26-2024 Telephone encounter Note Noted thank you. Please have office schedule an appointment with us. Also should be seen by PCP to rule out medical causes of increased anxiety [facility] 01-25-2024 Telephone encounter Note Late entry. Call returned at time of page. I spoke with [facility] nurse Yudy. I asked Yudy (nurse) to call patient's dtr back, encourage increased supervision of patient, and advised calling 911 if pt risk to herself or others and ensure she has close follow up with PCP (primary care provider) to rule out potential primary medical illness contributing to patient's symptoms over the last weeks and especially confusion today. Patient last seen by Dr. Castillo at outpatient dementia clinic on 10/22/23 along w Social Work(er) Yesica Coats. Sending to our medical scheduler Yoselyn to please schedule in the next 2-[address] Castillo if Dr. Castillo has any openings. Otherwise, can offer patient to see a different provider who has openings sooner if patient/family amenable. [facility] Phone: 01-25-2024 Telephone encounter Note S: Patient's Daughter Elizabeth spoke with [facility] nurse regarding update to previous TE B: dramatic change in behavior recently A: Elizabeth states since calling earlier, they had an incident in which they had to call police. States Patient left her condo and approached a landscape person and asked them to take her home because she was confused and did not believe she lived there, Elizabeth states she was in a complete panic. States Police took her to her home and Elizabeth went over to her house and is with her now and plans to stay with her tonight. Elizabeth mentions that after patient was brought back her caregiver that was hired was there and when she left the Patient started panicking again. States the last 3 weeks this type of behavior has progressed very rapidly. R: Secure chat sent to director of rehabilitation Provider Dr Bright who called and advised that Patient have increased supervision at home, if Daughter Elizabeth feels the Patient is a risk to herself or others she should call 911 and have the Patient taken to [facility] emergency room, also advised Elizabeth that they need to call PCP Dr Cook and have Patient evaluated. Elizabeth understands care advice. She is asking if Dr Castillo could follow up with her and schedule an appointment to see her. Message to Provider, please advise. No further needs at this time. Patient instructed to call back with new or worsening symptoms. [facility] 01-25-2024 Telephone encounter Note Error [facility] 01-25-2024 Miscellaneous Notes Error documented in this encounter [facility] 01-25-2024 Telephone encounter Note S: Patient's daughter, Elizabeth spoke with [facility] nurse regarding anxiety and fear. B: Onset of symptoms/concern: x 3 weeks Hx-alzheimer's dementia A: Elizabeth reports mom is exhibiting really bizarre behavior, confused, frustrated, states it's out of character for her and reports it was a sudden change, daughter believed a lot of symptoms were due to reaction to flexeril; however, has been off medication for the past week and symptoms persist, taking Zoloft 100 mg daily. Elizabeth also mentioned mom is receiving weekly injections as part of a drug trial for her dementia. R: Elizabeth advised message would be sent to provider for follow up, verbalized understanding. Reason for Disposition Patient sounds very upset or troubled to the triager Protocols used: Anxiety and Panic [id number] [facility] 12-28-2023 Telephone encounter Note Request for refill received from [facility] Last appointment: 10/22/2024 Next appointment: recall Pharmacy confirmed: [x] Yes [] No [facility] 12-28-2023 Miscellaneous Notes Request for refill received from [facility] Last appointment: 10/22/2024 Next appointment: recall Pharmacy confirmed: [x] Yes [] No documented in this encounter [facility] 10-22-2023 History of Present illness Narrative Images from the original note were not included. [facility] [address] [facility] [address] Dept: [phone] Dept Loc: [phone] Visit type: [facility] Follow Up Visit Reason for Visit: Dementia Visit Date: 10/22/2023 Assessment and Plan 1. Alzheimer's dementia without behavioral disturbance (HCC) - [facility] Occupational Therapy 2. History of depression 3. Driving safety issue - [facility]ational [facility] 4. Vitamin B12 deficiency - Vitamin B12 -slowly progressive course of Alzheimer's Disease. MOCA score declined. Daughter also noticing more forgetfulness and needing to cue more -Given low MOCA score, will refer to Occupational Therapy for driving evaluation. Executive function scores still ok on the MOCA -restart vitamin b12 (500 mcg or 1000 mcg daily) given history of deficiency. Recheck vitamin b12 in about a month -Continue aricept and namenda -Continue zoloft for history of depression and anxiety. Mood is doing well on the zoloft. Follow up in about 6 months (around 04/22/2024). Subjective HPI: Cyndee Vital is a 78 y.o. female with pmhof Alzheimer's Disease, hypertension, depression who presents to the [facility] for a follow-up visit. The patient is known to me. Chart Review: First seen in October 2021. MOCA 1530. Repeating questions more. Getting overwhelmed with too much information. Diagnosed with mild Alzheimer's Disease -August 2022. Continued aricept. Continue zoloft to help with mood. Having some issues with hallucinations. Discussed that one day she may need antipsychotic to help manage them. No ADL issues. Still driving. MOCA was a -Last seen in February 2023: She is enrolled in a clinical trial for Alzheimer's Disease. Subjectively, cognition stable. MOCA did decline to . MIS 01/21 Zoloft increased to 100 mg daily to help with anxiety/skin picking. History obtained from caregiver(s): Daughter Elizabeth -She is still in a medical trial for Prothena. Did the "blind" trial of Prothena. Will be going into the open label once a month for a year. -Daughter has seem some progression of the dementia. -short term memory: "iffy" -She does her own laundry. Dresses appropriately. Can use the microwave but doesn't cook anymore -long-term memory: good. -She had one episode of a weird dream that she thought was real. -No hallucinations -Driving locally. There is a GPS on the car. No accidents. -Appetite: gained 14 pounds. She has not forgotten to eat. -Sleep: Great -Mood: Increasing the dose of zoloft last visit seemed to help her mood. No depression. Gets anxious about "what the future will be like". -Gets upset when the diagnosis of "dementia" is mentioned -Walks around her [employer] - [employer]. [employer]. complex for exercise. She enjoys this. History obtained from patient: -She feels she is doing well. -Memory: "I don't think it is well". Example: not able to give an example -Short term memory seems 'pretty good" -Knows the people that she sees the most -She lives alone. -Still driving. Doesn't feel that she is "in trouble". -Sleep: good -Appetite: doing well -Mood: Really good. Enjoys life -Hallucinations: good -Physical health is good. Feels "good on her feet". No falls. No walker or cane. -Knows 911. Reviewed progress notes completed by ALFREDO (JULITO) and social work. No Known Allergies Current Outpatient Medications Medication Sig Dispense Refill atorvastatin (Lipitor) 40 MG tablet Take 40 mg by mouth Nightly. donepezil (Aricept) 10 MG tablet Take 1 tablet (10 mg) by mouth Nightly. 90 tablet 1 memantine (Namenda) 10 MG tablet Take 10 mg by mouth 2 times daily. metoprolol succinate XL (Toprol-XL) 25 MG 24 hr tablet Take 25 mg by mouth 2 times daily. sertraline (Zoloft) 100 MG tablet Take 1 tablet (100 mg) by mouth daily. 30 tablet 6 Loperamide HCl (IMODIUM PO) Take by mouth. PRN No current facility-administered medications for this visit. Past Medical History: Diagnosis Date Acute maxillary sinusitis 02/26/2023 Alzheimer's disease (HCC) 02/17/2022 Anxiety Depressive disorder 02/26/2023 Fever 02/26/2023 Herpes zoster 02/26/2023 Hypertension 01/30/2023 Hypokalemia 02/26/2023 Pain in buttock 02/26/2023 Paroxysmal supraventricular tachycardia 01/25/2021 Pure hypercholesterolemia 10/14/2019 PVC (premature ventricular contraction) 01/25/2021 Social History Tobacco Use Smoking status: Never Smokeless tobacco: Never Substance Use Topics Alcohol use: Not Currently Alcohol/week: 3.0 standard drinks of alcohol Types: 3 Cans of beer per week Past Surgical History: Procedure Laterality Date HYSTERECTOMY Family History Problem Relation Name Age of Onset Dementia Maternal Grandmother Family Status Relation Name Status MG (Not Specified) Objective Vitals: 10/22/23 1458 BP: 112/69 BP Location: Left arm Patient Position: Sitting Pulse: 56 Weight: 128 lb 3.2 oz (58.2 kg) Wt Readings from Last 3 Encounters: 10/22/23 128 lb 3.2 oz (58.2 kg) 02/26/23 114 lb 12.8 oz (52.1 kg) 02/17/22 115 lb 6.4 oz (52.3 kg) Physical Exam Constitutional: General: She is not in acute distress. Appearance: She is not ill-appearing. HENT: Head: Normocephalic and atraumatic. Cardiovascular: Rate and Rhythm: Normal rate and regular rhythm. Heart sounds: No murmur heard. No friction rub. No gallop. Pulmonary: Effort: Pulmonary effort is normal. Breath sounds: Normal breath sounds. No decreased breath sounds, wheezing, rhonchi or rales. Musculoskeletal: Right lower leg: No edema. Left lower leg: No edema. Neurological: Mental Status: She is alert. Psychiatric: Attention and Perception: Attention normal. Mood and Affect: Mood and affect normal. Speech: Speech normal. Cognition and Memory: Cognition is impaired. Memory is impaired. Data Reviewed and Summarized Testing: The following tests were performed at today's visit and scanned in to thechart: MoCA score: 11/30, MIS score: 4/15 Clock drawing score: 5/7 PHQ-9 score: 0 I independently reviewed the [place] Cognitive Assessment from 10/22/2023. Test scanned in to the chart. I spent total time of 41 minutes face to face with the patient and/or family discussing the diagnosis and importance of compliance with the treatment plan as well as documenting on the day of the visit. In addition, that total time includes the following: -Reviewing previous notes, -Reviewing previous cognitive tests, -Obtaining and/or reviewing separately obtained history, -Ordering prescription medications, tests and procedures, -Communicating results to the patient/family/caregiver, -Counseling/educating the patient/family/caregiver, -Documenting clinical information in the patients electronic record, -Coordination of care for the patient, and -Performing a medically appropriate exam and/or evaluation Review of Systems Constitutional: Negative for appetite change, fatigue, fever and unexpected weight change. HENT: Negative for dental problem, hearing loss and trouble swallowing. Eyes: Negative for visual disturbance. Respiratory: Negative for cough and shortness of breath. Cardiovascular: Negative for leg swelling. Gastrointestinal: Negative for constipation and diarrhea. Genitourinary: Negative for difficulty urinating and dysuria. Musculoskeletal: Negative for arthralgias, back pain and gait problem. Neurological: Negative for tremors, speech difficulty and weakness. Psychiatric/Behavioral: Positive for confusion and hallucinations. Negative for agitation, dysphoric mood and sleep disturbance. The patient is nervous/anxious. Senior Services/Geriatrics Social History Present at visit: patient, daughter- Elizabeth Marital status: Children: 2 children (both local) Living arrangement: alone, own condo, moved here close to daughter in 2018 from [place] >>02/17/22 same >>02/26/23 same >>10/22/23 same Household safety problems: none >>02/17/22 none >>08/22/22 denies >>02/26/23 denies >>10/22/23 one fall outside Pets: Yes, 1 cat, no issues caring for cat >>08/22/22 gets feed regularly, cleaning litter box Guns in the home: No Wandering potential: No >>02/17/22 none >>08/22/22 denies >>02/26/23 denies >>10/22/23 denies Elder abuse: No >>02/17/22 none >>08/22/22 almost gave CC to someone on the phone and stopped, then called daughter >>02/26/23 denies >>10/22/23 denies, daughter has spam blockers on phone Alcohol/Drug Abuse History: has an occasional beer service: Yes: Spouse was a , served during [employer] Highest level of education: some college 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 Activities: watches tv, spends time with cat >>02/17/22 just went on vacation, walks in condo, plays cards, plays piano, visiting friends >>08/22/22 outside, TV, cat sits out with neighbor, gnosticism, >>02/26/23 walks, visits with neighbors, gnosticism, kids' sports games, just came back from vacation >>10/22/23 same Exercise: walks around her house >>02/17/22 walking, weights >>08/22/22 walks around the condo or in her neighborhood >>02/26/23 walks >>10/22/23 walks Finances: meeting soon with Medicaid commercial real estate attorney Healthcare Power of Tube Pusher: Yes, Daughter Elizabeth Financial Power of Tube Pusher: Yes, Daughter Elizabeth Living Will: Yes Guardian:No Code Status: Full Code Primary Caregiver: daughter, Elizabeth Current care plan/supervision: daughter sees patient 2x/week, talks to her daily, son talks to her daily >>02/17/22 daughter comes over every day >>08/22/22 dtr sees her daily for shot, son in/out, calls >>02/26/23 same >>10/22/23 daughter sees patient every other day, son sees her sometimes Community resources: None >>02/17/22 none >>08/22/22 no issues >>02/26/23 video monitors, gps tracker on car >>10/22/23 same Caregiver stressors: daughter denies stress; is concerned about the future >>02/17/22 daughter feeling less stress since they got her in a clinical trial >>02/26/23 some stress but manageable >>10/22/23 same Goals for care: evaluate memory, keep patient at home as long as possible, then possibly moving in with daughter As a Caregiver, What Matters Most to You: Planning for future needs According to daughter, patient more repetative during last few years, some suspicious behavior more recently, gets overwhelmed with new information >>02/17/22 Daughter has helped patient get into clinical trial for Alzheimer's. Patient is doing a little better in her function since starting the trial. Daughter has gotten an alarmed pill dispenser for patient; she is doing well with using that. No other resources given today. >>02/26/23 Patient remaining stable in function since last visit. Daughter getting patient into new clinical trial starting in March. Patient still very active. Daughter has added video monitors, GPS trackers on patient's car. Daughter also created a big bulletin board with photos/phone numbers of family members. SW suggested that daughter check out www.Look.io. [employer] Information to check out any other products that may help keep patient as independent as possible. No resources given today. >>10/22/23 Patient misplaces things, daughter has apple tags/tiles on her items. Patient in a another new clinical trial, function is remaining very stable. Patient had a decline on memory test today. Daughter is providing good support and main objective is to keep patient as independent as possible. No resources given today. Functional Status (I: Independent, A: Assisted, D: Dependent) ADLs I A D Notes Bathing [] [x] [] No issues >>02/17/22 no issues with personal care >>08/22/22 no issues with ADLs/hygiene >>02/26/23 same >>10/22/23 needs cuing to shower sometimes Dressing [x] [] [] No issues >>10/22/23 no issues Toileting [x] [] [] No issues >>10/22/23 no issues Transfers [x] [] [] No issues >>10/22/23 no issues Feeding [x] [] [] No issues >>10/22/23 no issues Ambulation [] [] [] Assistive devices: None IADLs I A D Telephone [] [x] [] Can dial, answer, text using phone, can set up own appointments but daughter helping her more with medical appointments, writes everything down on calendar, usually goes at the wrong time or a day early >>02/17/22 same, did set up a hair appt, seems like she is needing less reminders, daughter still helps >>08/22/22 landline, call/answer/text, not much on apps, does get on computer >>02/26/23 still using phone, daughter sets up appointments, not needing too many reminders >>10/22/23 can call and answer the phone, daughter sets up appointments, now needs reminders Transportation [x] [] [] Driving safety concerns: still driving, no concerns about driving ability, has gotten lost >>02/17/22 driving no concerns, not getting lost >>08/22/22 stays local, daytime, no accidents/tickets/damage, new car and was able to adjust, dtr rides and feels safe, dtr tracks may put GPS on car, and add ring doorbell >>02/26/23 still driving locally, daughter added gps trackers to car, no concerns >>10/22/23 still driving, only locally, daughter tracks her, still no concerns Shopping [] [x] [] Patient does her own shopping, getting appropriate items for meals >>02/17/22 same >>08/22/22 mostly, dtr will do fresh foods, etc, goes to [employer] >>02/26/23 patient buys her dry products at [employer], daughter picks up the rest >>10/22/23 same Meal prep [] [x] [] Still cooking, no issues >>02/17/22 same >08/22/22 never been a big cooker, dtr does meals for her, microwave, basic stuff ,soup >>02/26/23 daughter takes over meals frequently, goes out to eat often, eats more prepared foods >>10/22/23 not forgetting to eat, mostly heating up prepared foods Housework [x] [] [] Still cleaning, no issues >>02/17/22 same >>08/22/22 immaculate >>02/26/23 same >>10/22/23 same Medications [] [x] [] Daughter not sure if patient using a pill box, no one monitoring, daughter thinks she is managing refills ok >>02/17/22 patient now using an alarmed dispenser, doing ok with that, no issues >>08/22/22 dtr sets up, then gives her shot >>02/26/23 still using alarmed dispenser, working great >>10/22/23 same Finances [] [x] [] Most bills on autopay, patient uses debit card, patient had missed paying real estate taxes- paid late, daughter on accounts and monitors >>02/17/22 same >>08/22/22 dtr handles , uses debit cards >>02/26/23 same >>10/22/23 same documented in this encounter [facility] [employer] 10-22-2023 Instructions Gunjan Castillo MD - 10/22/2023 2:45 PM EST Restart Vitamin B12 pill. This can be picked up Over The Counter. Can take 500 mcg or 1000 mcg once a day. Please get your vitamin b12 levels rechecked in one month. documented in this encounter [facility] [employer] 09-24-2023 History of Present illness Narrative RADIOLOGY SERVICE PROGRESS NOTE SERVICE DATE: 09/24/2023 SERVICE TIME: 2:02 PM PATIENT IDENTITY VERIFICATION COMPLETED USING TWO (2) STANDARD IDENTIFIERS: Name and Date of confirmed by patient verbally FALL SCREENING: Has the patient had 2 falls in the last year or 1 fall with injury or currently using an Ambulatory Assistive Device (Walker, Cane, Wheelchair, Crutches, etc.)? No PATIENT GENDER DATA: .female : No ALLERGIES: Reviewed and unchanged MEDICATIONS REVIEWED: No IV SITE: Ambulatory: A peripheral IV was started in the Left antecubital site with a Angio cath: 22 gauge. POST EXAM PIV STATUS: Discontinued PROCEDURE TYPE: NM INJECT: PET BRAIN Prothena Research Study SCAN. 11.41 mCi F18 Amyvid. No other medications given. ADMINISTRATION TIME: 1355 PATIENT DISCHARGED TO: Ambulatory patient, left NM department area. A Diagnostic radioactive procedure has taken place, with no further precautions necessary other than routine body substance precautions. More information regarding radiation safety can be found using this link: [email or web address] SIGNATURE: RT Tae(R) PATIENT NAME: Cyndee Vital DATE: September 24, 2023 TIME: 2:02 PM PAGER/CONTACT #: documented in this encounter [facility] 09-17-2023 Miscellaneous Notes CYNDEE VITAL \\ [id number] DOS: 09/24/23 PET INJ: 1430 PET 2: 1530 APPT NOTES: DO NOT SUBMIT AUTH TO INSURANCE, BILLED TO [employer] [id number] PET BRAIN AMYVID [employer] TRANSMITTAL FORM PET 2 ONLY documented in this encounter [facility] 07-30-2023 Miscellaneous Notes Opend in error documented in this encounter [facility] 07-03-2023 Telephone encounter Note (1) Medication name: Sertraline Medication dosage: 100 mg (Miligrams Monthly quantity needed: 30 How many day supply requestin days Medication route: oral (PO) Medication administration time(s): daily If taking medication PRN, reason for taking medication: N/A If this is a controlled substance do you receive this or any other controlled medication from any other doctor or facility: No Date of last refill (see medication tab): 02.26.23 (2) Medication name: Donepezil Medication dosage: 10 mg (Miligrams Monthly quantity needed: N/A How many day supply requesting: N/A Medication route: oral (PO) Medication administration time(s): daily If taking medication PRN, reason for taking medication: N/A If this is a controlled substance do you receive this or any other controlled medication from any other doctor or facility: No Date of last refill (see medication tab): 02.19.22 [facility] 07-03-2023 Miscellaneous Notes (1) Medication name: Sertraline Medication dosage: 100 mg (Miligrams Monthly quantity needed: 30 How many day supply requestin days Medication route: oral (PO) Medication administration time(s): daily If taking medication PRN, reason for taking medication: N/A If this is a controlled substance do you receive this or any other controlled medication from any other doctor or facility: No Date of last refill (see medication tab): 02.26.23 (2) Medication name: Donepezil Medication dosage: 10 mg (Miligrams Monthly quantity needed: N/A How many day supply requesting: N/A Medication route: oral (PO) Medication administration time(s): daily If taking medication PRN, reason for taking medication: N/A If this is a controlled substance do you receive this or any other controlled medication from any other doctor or facility: No Date of last refill (see medication tab): 02.19.22 documented in this encounter [facility] 04-13-2023 Instructions Celina Levy MD - 04/13/2023 9:37 AM EDT Sunscreen Recommendations: Recommend sunscreen with Zinc Oxide (in ingredient list on back): Small stick - looks like antiperspirant - (CeraVe, Neutrogena, [employer] brand) OR lotion (Neutrogena's pure and free liquid-- pure screen-- or CeraVe face AM moisturizer that has Zinc oxide) Newer Options: Miah PERKINS SPF 36 tinted sunscreen with zinc oxide and iron oxide Cetaphil Sheer Mineral Liquid Face SPF 50 Coppertone's Pure and Simple Zinc oxide documented in this encounter [facility] 04-13-2023 History of Present illness Narrative Vitals not obtained per provider's instructions. Patient was identified by name and date of . Alvaro Collazo Why are you seeing the trust officer (doctor) today? mole What specific location on your body is the problem located? neck How long ago did this start? 6 months Do you have any open sores that won't heal?no ROS: No other skin concerns. Do you have any allergies to medications? no Have you been told to take antibiotic prior to routine dental work? no If yes why? MEDICAL HISTORY: Patient has a history of the following medical Conditions/Devices: Pacemaker no Defibrillator no Cancer (non skin) no Skin cancer no Current no HIV/AIDS no HepC no Any other medical issues not listed in your medical record ( use .PMHX AND .PROB) No past medical history on file. Any other medical conditions not listed in your record: no Is current medication list up to date? Yes on file Family history of skin cancer? no Alcohol Use? yes Tobacco Use? no documented in this encounter [facility] 02-26-2023 History of Present illness Narrative Review of Systems Constitutional: Negative for appetite change, diaphoresis, fatigue, fever and unexpected weight change. HENT: Negative for dental problem, hearing loss and trouble swallowing. Eyes: Negative for visual disturbance. Respiratory: Negative for cough and shortness of breath. Cardiovascular: Negative for chest pain, palpitations and leg swelling. Gastrointestinal: Negative for abdominal pain, constipation, diarrhea, nausea and vomiting. Genitourinary: Positive for dysuria. Negative for difficulty urinating. Musculoskeletal: Negative for arthralgias, back pain, gait problem and neck pain. Neurological: Negative for dizziness, tremors, syncope, speech difficulty, weakness, light-headedness and headaches. Psychiatric/Behavioral: Positive for agitation, confusion, dysphoric mood, hallucinations and sleep disturbance. The patient is nervous/anxious. Answers submitted by the patient for this visit: Neurological Problem Questionnaire (Submitted on 02/26/2023) Chief Complaint: Neurologic complaint altered mental status: No clumsiness: No focal sensory loss: No focal weakness: No loss of balance: No memory loss: Yes near-syncope: No slurred speech: No visual change: No Chronicity: chronic Onset: more than 1 year ago Onset quality: gradually Progression since onset: waxing and waning Focality: no focality noted auditory change: No aura: No bladder incontinence: No bowel incontinence: No vertigo: No Treatments tried: medication, walking Improvement on treatment: mild Senior Services/Geriatrics Social History Present at visit: patient, daughter- Elizabeth Marital status: Children: 2 children (both local) Living arrangement: alone, own condo, moved here close to daughter in 2018 from [place] >>02/17/22 same >>02/26/23 same Household safety problems: none >>02/17/22 none >>08/22/22 denies >>02/26/23 denies Pets: Yes, 1 cat, no issues caring for cat >>08/22/22 gets feed regularly, cleaning litter box Guns in the home: No Wandering potential: No >>02/17/22 none >>08/22/22 denies >>02/26/23 denies Elder abuse: No >>02/17/22 none >>08/22/22 almost gave CC to someone on the phone and stopped, then called daughter >>02/26/23 denies Alcohol/Drug Abuse History: has an occasional beer service: Yes: Spouse was a , served during [place] Highest level of education: some college 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 Activities: watches tv, spends time with cat >>02/17/22 just went on vacation, walks in condo, plays cards, plays piano, visiting friends >>08/22/22 outside, TV, cat sits out with neighbor, gnosticism, >>02/26/23 walks, visits with neighbors, gnosticism, kids' sports games, just came back from vacation Exercise: walks around her house >>02/17/22 walking, weights >>08/22/22 walks around the condo or in her neighborhood >>02/26/23 walks Finances: meeting soon with Medicaid commercial real estate attorney Healthcare Power of Tube Pusher: Yes, Daughter Elizabeth Financial Power of Tube Pusher: Yes, Daughter Elizabeth Living Will: Yes Guardian:No Code Status: Full Code Primary Caregiver: daughter, Elizabeth Current care plan/supervision: daughter sees patient 2x/week, talks to her daily, son talks to her daily >>02/17/22 daughter comes over every day >>08/22/22 dtr sees her daily for shot, son in/out, calls >>02/26/23 same Community resources: None >>02/17/22 none >>08/22/22 no issues >>02/26/23 video monitors, gps tracker on car Caregiver stressors: daughter denies stress; is concerned about the future >>02/17/22 daughter feeling less stress since they got her in a clinical trial >>02/26/23 some stress but manageable Goals for care: evaluate memory, keep patient at home as long as possible, then possibly moving in with daughter As a Caregiver, What Matters Most to You: Planning for future needs According to daughter, patient more repetative during last few years, some suspicious behavior more recently, gets overwhelmed with new information >>02/17/22 Daughter has helped patient get into clinical trial for Alzheimer's. Patient is doing a little better in her function since starting the trial. Daughter has gotten an alarmed pill dispenser for patient; she is doing well with using that. No other resources given today. >>02/26/23 Patient remaining stable in function since last visit. Daughter getting patient into new clinical trial starting in March. Patient still very active. Daughter has added video monitors, GPS trackers on patient's car. Daughter also created a big bulletin board with photos/phone numbers of family members. SW suggested that daughter check out [email or web address]. [employer] Information to check out any other products that may help keep patient as independent as possible. No resources given today. Functional Status (I: Independent, A: Assisted, D: Dependent) ADLs I A D Notes Bathing [x] [] [] No issues >>02/17/22 no issues with personal care >>08/22/22 no issues with ADLs/hygiene >>02/26/23 same Dressing [x] [] [] No issues Toileting [x] [] [] No issues Transfers [x] [] [] No issues Feeding [x] [] [] No issues Ambulation [] [] [] Assistive devices: None IADLs I A D Telephone [] [x] [] Can dial, answer, text using phone, can set up own appointments but daughter helping her more with medical appointments, writes everything down on calendar, usually goes at the wrong time or a day early >>02/17/22 same, did set up a hair appt, seems like she is needing less reminders, daughter still helps >>08/22/22 landline, call/answer/text, not much on apps, does get on computer >>02/26/23 still using phone, daughter sets up appointments, not needing too many reminders Transportation [x] [] [] Driving safety concerns: still driving, no concerns about driving ability, has gotten lost >>02/17/22 driving no concerns, not getting lost >>08/22/22 stays local, daytime, no accidents/tickets/damage, new car and was able to adjust, dtr rides and feels safe, dtr tracks may put GPS on car, and add ring doorbell >>02/26/23 still driving locally, daughter added gps trackers to car, no concerns Shopping [] [x] [] Patient does her own shopping, getting appropriate items for meals >>02/17/22 same >>08/22/22 mostly, dtr will do fresh foods, etc, goes to [employer] >>02/26/23 patient buys her dried products at [employer], daughter picks up the rest Meal prep [] [x] [] Still cooking, no issues >>02/17/22 same >>08/22/22 never been a big cooker, dtr does meals for her, microwave, basic stuff ,soup >>02/26/23 daughter takes over meals frequently, goes out to eat often, eats more prepared foods Housework [x] [] [] Still cleaning, no issues >>02/17/22 same >>08/22/22 immaculate >>02/26/23 same Medications [] [x] [] Daughter not sure if patient using a pill box, no one monitoring, daughter thinks she is managing refills ok >>02/17/22 patient now using an alarmed dispenser, doing ok with that, no issues >>08/22/22 dtr sets up, then gives her shot >>02/26/23 still using alarmed dispenser, working great Finances [] [x] [] Most bills on autopay, patient uses debit card, 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 [facility] [address] [place] [address] Dept: [phone] Dept Loc: [phone] Visit type: [facility] Follow Up Visit Reason for Visit: Dementia Visit Date: 02/26/2023 Assessment and Plan 1. Alzheimer's dementia without behavioral disturbance (HCC) 2. Depression, unspecified depression type -MOCA scores tend to fluctuate between 15 and 20 out of 30. She was a bit more forgetful and poorer on orientation questions than last appointment. -Subjectively, cognition seems stable -Continue aricept and namenda -will increase zoloft due to report of decreased mood overall. Take 75 mg daily for 7 days. Then increase to 100 mg daily. Follow up in about 6 months (around 08/28/2023). Subjective HPI: Cyndee Vital is a 77 y.o. female with past medical history of Alzheimer's Disease, hypertension, depression who presents to the [facility] for a follow-up visit. The patient is known to me. Chart Review: First seen in October 2021. MOCA . Repeating questions more. Getting overwhelmed with too much information. Diagnosed with mild Alzheimer's Disease -last seen by JESSICA Paez in August 2022. Continued aricept. Continue zoloft to help with mood. Having some issues with hallucinations. Discussed that one day she may need antipsychotic to help manage them. No ADL issues. Still driving. MOCA was a History obtained from caregiver(s): Daughter Elizabeth -She finished one clinical trail for Alzheimer's Disease. Will be starting another one soon. -Her memory issues seemed to be pretty "steady" during the last clinical trial. 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 2nd stage: a medication to prevent the plague from building up again. -She went to [place] with the family on a trip. She had a bit of a hard time adjusting to the time change. Then got more oriented as the week went on -Physical health has been pretty good. -Did have shingles since the last appointment. -she does talk a lot in her sleep. Doesn't move around that much though -Tends to get disoriented and confused in the middle of the night. Thinks her dreams are real. Elizabeth saw this when on vacation with her. -She can get upset about having the dementia. She will say she feels 'down'. She is a worrier. Also picks at her skin. Elizabeth would like to increase the zoloft dose. -taking pills regularly with an alarmed pill box. -No hallucinations during the day. -Appetite: good. -Sleep: good History obtained from patient: -Memory has not been doing well. "Not as sharp as it should be". Doesn't feel like the memory issues have gotten in the way of her day to day life though. -Lives alone. -Doesn't have a lot of people to talk to Watches TV a lot. Did make friends with the lady across the street. -Mood: Good. Sometimes gets a bit down. No hallucinations -Appetite: "Love to eat" -Sleep: sleep very well. -likes were she lives -driving locally. Not a lot. No accidents -walks around the house a lot. Sometimes around the [facility] Reviewed progress notes completed by ALFREDO RUEDA) and social work. No Known Allergies Current Outpatient Medications Medication Sig Dispense Refill atorvastatin (Lipitor) 40 MG tablet Take 40 mg by mouth Nightly. donepezil (Aricept) 10 MG tablet Take 1 tablet by mouth Nightly. Loperamide HCl (IMODIUM PO) Take by mouth. memantine (Namenda) 10 MG tablet Take 10 mg by mouth 2 times daily. metoprolol succinate XL (Toprol-XL) 25 MG 24 hr tablet Take 25 mg by mouth 2 times daily. No current facility-administered medications for this visit. Past Medical History: Diagnosis Date Acute maxillary sinusitis 02/26/2023 Alzheimer's disease (HCC) 02/17/2022 Anxiety Depressive disorder 02/26/2023 Fever 02/26/2023 Herpes zoster 02/26/2023 Hypertension 01/30/2023 Hypokalemia 02/26/2023 Pain in buttock 02/26/2023 Paroxysmal supraventricular tachycardia (CMS/HCC) (HCC) 01/25/2021 Pure hypercholesterolemia 10/14/2019 PVC (premature ventricular contraction) 01/25/2021 Social History Tobacco Use Smoking status: Never Smokeless tobacco: Never Substance Use Topics Alcohol use: Not Currently Alcohol/week: 3.0 standard drinks Types: 3 Cans of beer per week Past Surgical History: Procedure Laterality Date HYSTERECTOMY Family History Problem Relation Name Age of Onset Dementia Maternal Grandmother Family Status Relation Name Status MG (Not Specified) Objective Vitals: 02/26/23 1546 BP: 112/72 BP Location: Right arm Patient Position: Sitting Pulse: 58 Temp: (!) 35.9 C (96.6 F) Weight: 114 lb 12.8 oz (52.1 kg) Wt Readings from Last 3 Encounters: 02/26/23 114 lb 12.8 oz (52.1 kg) 02/17/22 115 lb 6.4 oz (52.3 kg) 01/10/22 114 lb 12.8 oz (52.1 kg) Physical Exam Constitutional: General: She is not in acute distress. Appearance: She is not ill-appearing. HENT: Head: Normocephalic and atraumatic. Cardiovascular: Rate and Rhythm: Normal rate and regular rhythm. Heart sounds: No murmur heard. No friction rub. No gallop. Pulmonary: Effort: Pulmonary effort is normal. Breath sounds: Normal breath sounds. No decreased breath sounds, wheezing, rhonchi or rales. Musculoskeletal: Right lower leg: No edema. Left lower leg: No edema. Neurological: Mental Status: She is alert. Gait: Gait is intact. Psychiatric: Attention and Perception: Attention normal. Mood and Affect: Mood and affect normal. Speech: Speech normal. Behavior: Behavior normal. Behavior is cooperative. Cognition and Memory: Cognition is impaired. Memory is impaired. Data Reviewed and Summarized Testing: The following tests were performed at today's visit and scanned in to thechart: MoCA score: 15/30, MIS score: 3/15 Clock drawing score: 5/7 PHQ-9 score: 1 I independently reviewed the Darius Cognitive Assessment from 02/26/2023. Test scanned in to the chart. I spent total time of 53 minutes face to face with the patient and/or family discussing the diagnosis and importance of compliance with the treatment plan as well as documenting on the day of the visit. In addition, that total time includes the following: -Reviewing previous notes, -Reviewing previous cognitive tests, -Obtaining and/or reviewing separately obtained history, -Ordering prescription medications, tests and procedures, -Communicating results to the patient/family/caregiver, -Counseling/educating the patient/family/caregiver, -Documenting clinical information in the patients electronic record, -Coordination of care for the patient, and -Performing a medically appropriate exam and/or evaluation documented in this encounter [facility] 02-26-2023 Instructions Gunjan Castillo MD - 02/26/2023 3:45 PM EDT We will increase your sertraline (Zoloft) to help with your mood. Take 75 mg daily (a tablet and a half of the 50 mg tablets you have at home) for 7 days. Then, increase to 100 mg daily thereafter. I will send in a prescription for the new 100 mg tablets to your pharmacy. documented in this encounter [facility] 02-19-2023 History of Present illness Narrative RADIOLOGY SERVICE PROGRESS NOTE SERVICE DATE: 02/19/2023 SERVICE TIME: 2:37 PM PATIENT IDENTITY VERIFICATION COMPLETED USING TWO (2) STANDARD IDENTIFIERS: Name and Date of confirmed by patient verbally FALL SCREENING: Has the patient had 2 falls in the last year or 1 fall with injury or currently using an Ambulatory Assistive Device (Walker, Cane, Wheelchair, Crutches, etc.)? No PATIENT GENDER DATA: .female : No ALLERGIES: Reviewed and unchanged MEDICATIONS REVIEWED: Not applicable PATIENT RELEVANT IMPLANT DATA REVIEWED: Not Applicable CREATININE: Creatinine Date Value Ref Range Status 10/07/2019 0.73 0.58 - 0.96 mg/dL Final 10/06/2019 0.82 0.58 - 0.96 mg/dL Final eGFR-All Other Races Date Value Ref Range Status 10/07/2019 >60 . Final Comment: eGFR (Estimated GFR) Units of measure: mL/min/1.73 meters squared eGFR is derived from the reexpressed MDRD Study equation using the following parameters: serum creatinine, age, gender and race. The creatinine assay has been calibrated to be traceable to IDMS. An eGFR <60 mL/min/1.73m2 for >3 months is consistent with chronic kidney disease. Refer to KDOQI guidelines for clinical interpretation. In patients with unstable renal function, e.g. those with acute kidney injury, the eGFR may not accurately reflect actual GFR. eGFR- Date Value Ref Range Status 10/07/2019 >60 Final P.O.C.T. RESULTS: N/A February 19, [address] PERFORMED: No IV SITE: Ambulatory: A peripheral IV was started in the Left antecubital site with a Angio cath: 22 gauge. POST EXAM PIV STATUS: Discontinued PROCEDURE TYPE: NM INJECT: PET/CT Research Brain Prothena. 11.28 mCi F18 Amyvid. No other medications given.. ADMINISTRATION TIME: 1423 PATIENT DISCHARGED TO: Ambulatory patient, left [place] department area. A Diagnostic radioactive procedure has taken place, with no further precautions necessary other than routine body substance precautions. More information regarding radiation safety can be found using this link: [email or web address] SIGNATURE: RT Amanda(R) PATIENT NAME: Cyndee Vital DATE: February 19, 2023 TIME: 2:37 PM PAGER/CONTACT #: documented in this encounter [facility] 02-19-2023 Telephone encounter Note Rescheduled. [facility] 02-19-2023 Miscellaneous Notes Rescheduled. DONNA Castillo Name of caller: Elizabeth Contact phone number: [phone] Relationship to Patient: patient daughter Provider: Dr. Castillo Practice: [facility] Chief Complaint/Reason for Call: The patient and daughter is at the [facility] getting a PET Scan because the patient is part of a trail program. They will not be able to make it to the patient appointment at 3: 45 pm today. Please call the patient daughter to reschedule the patient appointment. Best time of day caller can be reached: any Patient advised that office/PCP has 24-48 business hours to return their call: Yes documented in this encounter [facility] 02-19-2023 Telephone encounter Note DONNA to Jonathan [facility] 02-19-2023 Telephone encounter Note Name of caller: Elizabeth Contact phone number: [phone] Relationship to Patient: patient daughter Provider: Dr. Castillo Practice: [facility] Chief Complaint/Reason for Call: The patient and daughter is at the [facility] getting a PET Scan because the patient is part of a trail program. They will not be able to make it to the patient appointment at 3: 45 pm today. Please call the patient daughter to reschedule the patient appointment. Best time of day caller can be reached: any Patient advised that office/PCP has 24-48 business hours to return their call: Yes [facility] 02-19-2023 Miscellaneous Notes CYNDEE VITAL \\ [id number] DOS: 02/19/23 PET INJ: 1445 PET 2: 1545 APPT NOTES: ANU [id number] PET BRAIN AMYVID RESEARCH STUDY TRANSMITTAL FORM PET 2 ONLY documented in this encounter [facility] 02-28-2022 History of Present illness Narrative Images from the original note were not included. [facility] OUTPATIENT VISIT DATE February 28, 2022 PRIMARY CARE PHYSICIAN: Emi Cook (Cassandra) [address] [address] HISTORY OF PRESENT ILLNESS: Ms. Vital is a 76 year old female. Patient returns for follow-up second history of symptomatic PVCs and short runs of paroxysmal SVT on telemetry monitoring. She has additional history of hyperlipidemia. Who recently has been enrolled in a trial for dementia for which she is markedly improved. She denies chest scar, dyspnea, orthopnea, paroxysmal nocturnal dyspnea, palpitations, near-syncope or syncope. PLAN AND RECOMMENDATIONS: The patient appears stable without symptoms of suggest angina or cardiac compensation. Heart rate, blood pressure and recent cholesterol profile are favorable. We have therefore made no additions or changes. Dietary and lifestyle modification was reemphasized. We will look forward to reevaluating her in 7 months time. Vitals: BP 112/58 Pulse (!) 58 Ht 154.9 cm (5' 1") Wt 49.9 kg (110 lb) SpO2 98% BMI 20.78 kg/m Physical Exam Vitals reviewed. Constitutional: Appearance: She is well-developed. HENT: Head: Normocephalic and atraumatic. Eyes: Pupils: Pupils are equal, round, and reactive to light. Neck: Thyroid: No thyromegaly. Vascular: No JVD. Cardiovascular: Rate and Rhythm: Normal rate and regular rhythm. Heart sounds: Normal heart sounds. No murmur heard. No friction rub. No gallop. Pulmonary: Effort: Pulmonary effort is normal. No respiratory distress. Breath sounds: Normal breath sounds. No wheezing or rales. Abdominal: General: Bowel sounds are normal. Palpations: Abdomen is soft. Musculoskeletal: General: Normal range of motion. Cervical back: Normal range of motion and neck supple. Skin: General: Skin is warm and dry. Coloration: Skin is not pale. Neurological: Mental Status: She is alert and oriented to person, place, and time. Cranial Nerves: No cranial nerve deficit. Psychiatric: Behavior: Behavior normal. Thought Content: Thought content normal. Judgment: Judgment normal. Review of Systems Constitutional: Negative for activity change and fatigue. HENT: Negative for ear pain and facial swelling. Eyes: Negative for pain and discharge. Respiratory: Negative for chest tightness and shortness of breath. Cardiovascular: Negative for chest pain, palpitations and leg swelling. Gastrointestinal: Negative for abdominal pain, blood in stool, nausea and vomiting. Endocrine: Negative for cold intolerance and heat intolerance. Genitourinary: Negative for frequency and hematuria. Musculoskeletal: Negative for arthralgias and gait problem. Skin: Negative for color change, pallor and rash. Allergic/Immunologic: Negative for immunocompromised state. Neurological: Negative for dizziness, syncope, light-headedness and headaches. Hematological: Negative for adenopathy. Does not bruise/bleed easily. Psychiatric/Behavioral: Negative for confusion. The patient is not nervous/anxious. PAST MEDICAL HISTORY Diagnosis Date PSVT (paroxysmal supraventricular tachycardia) (HCC) 01/25/2021 Pure hypercholesterolemia 10/14/2019 PVC (premature ventricular contraction) 01/25/2021 PAST SURGICAL HISTORY Procedure Laterality Date NONE Social History Tobacco Use Smoking status: Never Smoker Smokeless tobacco: Never Used Vaping Use Vaping Use: Never used Substance Use Topics Alcohol use: Yes Comment: occasional Drug use: Never FAMILY HISTORY Problem Relation Age of Onset Cancer Mother ovarian ALLERGIES No Known Allergies CURRENT MEDICATIONS: metoprolol succinate ER (TOPROL XL) 25 mg 24 hr tablet Take 1 tablet by mouth twice daily. multivit-min/ferrous fumarate (MULTI VITAMIN ORAL) Take by mouth. aspirin, enteric coated (ASPIRIN, ENTERIC COATED) 81 mg EC tablet Take 1 tablet by mouth once daily. atorvastatin (LIPITOR) 40 mg tablet Take 1 tablet by mouth daily at bedtime. donepezil (ARICEPT) 10 mg tablet TAKE 1 TABLET BY MOUTH NIGHTLY EKG performed today demonstrates sinus bradycardia and is otherwise normal. Marcus Sorensen DO, FACC, FACOI Clinical and Preventive Cardiology Department of Medicine and Division of Cardiology, [facility] Raisin Separator Operatorassociate professor of medicine [facility] Raisin Separator Operator of Congestive Heart Failure Clinic [facility] Cardiology Office Raisin Separator Operator [facility] Staff Pari Mutuel Ticket Cashier, Rosemary and Kristina Johnston Department of Cardiovascular Medicine/Heart and Vascular [place], [facility] Clinical Irrigation Supervisor Profressor of Medicine, [facility] of Medicine [facility] Please note: This note has been produced using speech recognition software and may contain errors related to that system including lianet, punctuation, spelling, words, gender and phrases that may be inappropriate. documented in this encounter [facility] 10-06-2019 History of Past i llness Narrative Problem Noted Date Resolved Date Chest pain 10/06/2019 10/07/2019 Overview: Assessment: Troponins negative TSH and A1C normal Lipid panel: total chol 211; trig 95; HDL 60; LDL 132 Cardiology recommends outpatient stress test and continuing ASA/statin No acute events on tele overnight; T waves back to normal on tele PLAN: Follow up with PCP in 3-5 days Follow up with cardiology outpatient to obtain stress test Continue home medications Continue ASA and statin Monitor BP at home and report results to PCP Return to ED if CP returns Last Assessment & Plan: Assessment: Troponins negative TSH and A1C normal Lipid panel: total chol 211; trig 95; HDL 60; LDL 132 Cardiology recommends outpatient stress test and continuing ASA/statin No acute events on tele overnight; T waves back to normal on tele PLAN: Follow up with PCP in 3-5 days Follow up with cardiology outpatient to obtain stress test Continue home medications Continue ASA and statin Monitor BP at home and report results to PCP Return to ED if CP returns Hypokalemia 10/06/2019 10/07/2019 Overview: Assessment: K 4.1 today T waves appear normal on tele PLAN: Follow up with PCP in 3-5 days Last Assessment & Plan: Assessment: K 4.1 today T waves appear normal on tele PLAN: Follow up with PCP in 3-5 days documented as of this encounter (statuses as of 02/28/2022) [facility]11-[facility]-2019 History of Past illness Narrative* Problem Noted Date Resolved Date Chest pain 10/06/2019 10/07/2019 Overview: Assessment: Troponins negative TSH and A1C normal Lipid panel: total chol 211; trig 95; HDL 60; LDL 132 Cardiology recommends outpatient stress test and continuing ASA/statin No acute events on tele overnight; T waves back to normal on tele PLAN: Follow up with PCP in 3-5 days Follow up with cardiology outpatient to obtain stress test Continue home medications Continue ASA and statin Monitor BP at home and report results to PCP Return to ED if CP returns Last Assessment & Plan: Assessment: Troponins negative TSH and A1C normal Lipid panel: total chol 211; trig 95; HDL 60; LDL 132 Cardiology recommends outpatient stress test and continuing ASA/statin No acute events on tele overnight; T waves back to normal on tele PLAN: Follow up with PCP in 3-5 days Follow up with cardiology outpatient to obtain stress test Continue home medications Continue ASA and statin Monitor BP at home and report results to PCP Return to ED if CP returns Hypokalemia 10/06/2019 10/07/2019 Overview: Assessment: K 4.1 today T waves appear normal on tele PLAN: Follow up with PCP in 3-5 days Last Assessment & Plan: Assessment: K 4.1 today T waves appear normal on tele PLAN: Follow up with PCP in 3-5 days documented as of this encounter (statuses as of 01/22/2023) [facility]2019 History of Past illness Narrative* Problem Noted Date Resolved Date Chest pain 10/06/2019 10/07/2019 Overview: Assessment: Troponins negative TSH and A1C normal Lipid panel: total chol 211; trig 95; HDL 60; LDL 132 Cardiology recommends outpatient stress test and continuing ASA/statin No acute events on tele overnight; T waves back to normal on tele PLAN: Follow up with PCP in 3-5 days Follow up with cardiology outpatient to obtain stress test Continue home medications Continue ASA and statin Monitor BP at home and report results to PCP Return to ED if CP returns Last Assessment & Plan: Assessment: Troponins negative TSH and A1C normal Lipid panel: total chol 211; trig 95; HDL 60; LDL 132 Cardiology recommends outpatient stress test and continuing ASA/statin No acute events on tele overnight; T waves back to normal on tele PLAN: Follow up with PCP in 3-5 days Follow up with cardiology outpatient to obtain stress test Continue home medications Continue ASA and statin Monitor BP at home and report results to PCP Return to ED if CP returns Hypokalemia 10/06/2019 10/07/2019 Overview: Assessment: K 4.1 today T waves appear normal on tele PLAN: Follow up with PCP in 3-5 days Last Assessment & Plan: Assessment: K 4.1 today T waves appear normal on tele PLAN: Follow up with PCP in 3-5 days documented as of this encounter (statuses as of 02/20/2023) [facility]-2019 History of Past illness Narrative* Problem Noted Date Resolved Date Chest pain 10/06/2019 10/07/2019 Overview: Assessment: Troponins negative TSH and A1C normal Lipid panel: total chol 211; trig 95; HDL 60; LDL 132 Cardiology recommends outpatient stress test and continuing ASA/statin No acute events on tele overnight; T waves back to normal on tele PLAN: Follow up with PCP in 3-5 days Follow up with cardiology outpatient to obtain stress test Continue home medications Continue ASA and statin Monitor BP at home and report results to PCP Return to ED if CP returns Last Assessment & Plan: Assessment: Troponins negative TSH and A1C normal Lipid panel: total chol 211; trig 95; HDL 60; LDL 132 Cardiology recommends outpatient stress test and continuing ASA/statin No acute events on tele overnight; T waves back to normal on tele PLAN: Follow up with PCP in 3-5 days Follow up with cardiology outpatient to obtain stress test Continue home medications Continue ASA and statin Monitor BP at home and report results to PCP Return to ED if CP returns Hypokalemia 10/06/2019 10/07/2019 Overview: Assessment: K 4.1 today T waves appear normal on tele PLAN: Follow up with PCP in 3-5 days Last Assessment & Plan: Assessment: K 4.1 today T waves appear normal on tele PLAN: Follow up with PCP in 3-5 days documented as of this encounter (statuses as of 02/20/2023) [facility] History of Past illness Narrative* Problem Noted Date Diagnosed Date Resolved Date Chest pain 10/06/2019 10/07/2019 Overview: Assessment: Troponins negative TSH and A1C normal Lipid panel: total chol 211; trig 95; HDL 60; LDL 132 Cardiology recommends outpatient stress test and continuing ASA/statin No acute events on tele overnight; T waves back to normal on tele PLAN: Follow up with PCP in 3-5 days Follow up with cardiology outpatient to obtain stress test Continue home medications Continue ASA and statin Monitor BP at home and report results to PCP Return to ED if CP returns Last Assessment & Plan: Assessment: Troponins negative TSH and A1C normal Lipid panel: total chol 211; trig 95; HDL 60; LDL 132 Cardiology recommends outpatient stress test and continuing ASA/statin No acute events on tele overnight; T waves back to normal on tele PLAN: Follow up with PCP in 3-5 days Follow up with cardiology outpatient to obtain stress test Continue home medications Continue ASA and statin Monitor BP at home and report results to PCP Return to ED if CP returns Hypokalemia 10/06/2019 10/07/2019 Overview: Assessment: K 4.1 today T waves appear normal on tele PLAN: Follow up with PCP in 3-5 days Last Assessment & Plan: Assessment: K 4.1 today T waves appear normal on tele PLAN: Follow up with PCP in 3-5 days documented as of this encounter (statuses as of 07/30/2023) [facility]11-[facility]-2019 History of Past illness Narrative* Problem Noted Date Diagnosed Date Resolved Date Chest pain 10/06/2019 10/07/2019 Overview: Assessment: Troponins negative TSH and A1C normal Lipid panel: total chol 211; trig 95; HDL 60; LDL 132 Cardiology recommends outpatient stress test and continuing ASA/statin No acute events on tele overnight; T waves back to normal on tele PLAN: Follow up with PCP in 3-5 days Follow up with cardiology outpatient to obtain stress test Continue home medications Continue ASA and statin Monitor BP at home and report results to PCP Return to ED if CP returns Last Assessment & Plan: Assessment: Troponins negative TSH and A1C normal Lipid panel: total chol 211; trig 95; HDL 60; LDL 132 Cardiology recommends outpatient stress test and continuing ASA/statin No acute events on tele overnight; T waves back to normal on tele PLAN: Follow up with PCP in 3-5 days Follow up with cardiology outpatient to obtain stress test Continue home medications Continue ASA and statin Monitor BP at home and report results to PCP Return to ED if CP returns Hypokalemia 10/06/2019 10/07/2019 Overview: Assessment: K 4.1 today T waves appear normal on tele PLAN: Follow up with PCP in 3-5 days Last Assessment & Plan: Assessment: K 4.1 today T waves appear normal on tele PLAN: Follow up with PCP in 3-5 days documented as of this encounter (statuses as of 09/17/2023) [facility]-2019 History of Past illness Narrative* Problem Noted Date Diagnosed Date Resolved Date Chest pain 10/06/2019 10/07/2019 Overview: Assessment: Troponins negative TSH and A1C normal Lipid panel: total chol 211; trig 95; HDL 60; LDL 132 Cardiology recommends outpatient stress test and continuing ASA/statin No acute events on tele overnight; T waves back to normal on tele PLAN: Follow up with PCP in 3-5 days Follow up with cardiology outpatient to obtain stress test Continue home medications Continue ASA and statin Monitor BP at home and report results to PCP Return to ED if CP returns Last Assessment & Plan: Assessment: Troponins negative TSH and A1C normal Lipid panel: total chol 211; trig 95; HDL 60; LDL 132 Cardiology recommends outpatient stress test and continuing ASA/statin No acute events on tele overnight; T waves back to normal on tele PLAN: Follow up with PCP in 3-5 days Follow up with cardiology outpatient to obtain stress test Continue home medications Continue ASA and statin Monitor BP at home and report results to PCP Return to ED if CP returns Hypokalemia 10/06/2019 10/07/2019 Overview: Assessment: K 4.1 today T waves appear normal on tele PLAN: Follow up with PCP in 3-5 days Last Assessment & Plan: Assessment: K 4.1 today T waves appear normal on tele PLAN: Follow up with PCP in 3-5 days documented as of this encounter (statuses as of 09/25/2023) [facility]2019 History of Past illness Narrative* Problem Noted Date Diagnosed Date Resolved Date Chest pain 10/06/2019 10/07/2019 Overview: Assessment: Troponins negative TSH and A1C normal Lipid panel: total chol 211; trig 95; HDL 60; LDL 132 Cardiology recommends outpatient stress test and continuing ASA/statin No acute events on tele overnight; T waves back to normal on tele PLAN: Follow up with PCP in 3-5 days Follow up with cardiology outpatient to obtain stress test Continue home medications Continue ASA and statin Monitor BP at home and report results to PCP Return to ED if CP returns Last Assessment & Plan: Assessment: Troponins negative TSH and A1C normal Lipid panel: total chol 211; trig 95; HDL 60; LDL 132 Cardiology recommends outpatient stress test and continuing ASA/statin No acute events on tele overnight; T waves back to normal on tele PLAN: Follow up with PCP in 3-5 days Follow up with cardiology outpatient to obtain stress test Continue home medications Continue ASA and statin Monitor BP at home and report results to PCP Return to ED if CP returns Hypokalemia 10/06/2019 10/07/2019 Overview: Assessment: K 4.1 today T waves appear normal on tele PLAN: Follow up with PCP in 3-5 days Last Assessment & Plan: Assessment: K 4.1 today T waves appear normal on tele PLAN: Follow up with PCP in 3-5 days documented as of this encounter (statuses as of 09/25/2023) [facility]-2019 History of Past illness Narrative* Problem Noted Date Diagnosed Date Resolved Date Chest pain 10/06/2019 10/07/2019 Overview: Assessment: Troponins negative TSH and A1C normal Lipid panel: total chol 211; trig 95; HDL 60; LDL 132 Cardiology recommends outpatient stress test and continuing ASA/statin No acute events on tele overnight; T waves back to normal on tele PLAN: Follow up with PCP in 3-5 days Follow up with cardiology outpatient to obtain stress test Continue home medications Continue ASA and statin Monitor BP at home and report results to PCP Return to ED if CP returns Last Assessment & Plan: Assessment: Troponins negative TSH and A1C normal Lipid panel: total chol 211; trig 95; HDL 60; LDL 132 Cardiology recommends outpatient stress test and continuing ASA/statin No acute events on tele overnight; T waves back to normal on tele PLAN: Follow up with PCP in 3-5 days Follow up with cardiology outpatient to obtain stress test Continue home medications Continue ASA and statin Monitor BP at home and report results to PCP Return to ED if CP returns Hypokalemia 10/06/2019 10/07/2019 Overview: Assessment: K 4.1 today T waves appear normal on tele PLAN: Follow up with PCP in 3-5 days Last Assessment & Plan: Assessment: K 4.1 today T waves appear normal on tele PLAN: Follow up with PCP in 3-5 days documented as of this encounter (statuses as of 01/27/2024) [facility]-28-2019 History of Past illness Narrative* Problem Noted Date Diagnosed Date Resolved Date Chest pain 10/06/2019 10/07/2019 Overview: Assessment: Troponins negative TSH and A1C normal Lipid panel: total chol 211; trig 95; HDL 60; LDL 132 Cardiology recommends outpatient stress test and continuing ASA/statin No acute events on tele overnight; T waves back to normal on tele PLAN: Follow up with PCP in 3-5 days Follow up with cardiology outpatient to obtain stress test Continue home medications Continue ASA and statin Monitor BP at home and report results to PCP Return to ED if CP returns Last Assessment & Plan: Assessment: Troponins negative TSH and A1C normal Lipid panel: total chol 211; trig 95; HDL 60; LDL 132 Cardiology recommends outpatient stress test and continuing ASA/statin No acute events on tele overnight; T waves back to normal on tele PLAN: Follow up with PCP in 3-5 days Follow up with cardiology outpatient to obtain stress test Continue home medications Continue ASA and statin Monitor BP at home and report results to PCP Return to ED if CP returns Hypokalemia 10/06/2019 10/07/2019 Overview: Assessment: K 4.1 today T waves appear normal on tele PLAN: Follow up with PCP in 3-5 days Last Assessment & Plan: Assessment: K 4.1 today T waves appear normal on tele PLAN: Follow up with PCP in 3-5 days documented as of this encounter (statuses as of 02/02/2024) [facility] No data available for this section [facility] Evaluation note* Diagnosis PSVT (paroxysmal supraventricular tachycardia) ([facility])- Primary Paroxysmal supraventricular tachycardia PVC (premature ventricular contraction) Other premature beats Pure hypercholesterolemia [facility]* Diagnosis Examination for normal comparison or control in clinical research- Primary Examination of participant in clinical trial documented in this encounter [facility] note* Diagnosis Onset Date Resolution Status Acute buttock pain acute Hyperlipidemia acute Shingles acute [facility] Work Phone: Evaluation note* Diagnosis Examination for normal comparison or control in clinical research Examination of participant in clinical trial documented in this encounter [facility] note* Diagnosis Alzheimer's dementia without behavioral disturbance (HCC)- Primary Alzheimer's disease Depression, unspecified depression type documented in this encounter [facility] note* Diagnosis Seborrheic keratoses- Primary Ephelides Other dyschromia Lentigines Other dyschromia Multiple nevi documented in this encounter [facility] note* Diagnosis Depression, unspecified depression type documented in this encounter [facility] note* Diagnosis Memory changes Memory loss documented in this encounter [facility] note* Diagnosis Alzheimer's dementia without behavioral disturbance (HCC)- Primary Alzheimer's disease History of depression Personal history of other mental disorder Driving safety issue Vitamin B12 deficiency Other B-complex deficiencies documented in this encounter [facility] note* Diagnosis Examination for normal comparison or control in clinical research- Primary Examination of participant in clinical trial documented in this encounter [facility] note* Diagnosis Onset Date Resolution Status Alzheimer's dementia acute Sciatica, left side acute Alzheimer's dementia acute Change in mental status acut e Panic attacks acute Sciatica, left side acute [facility] Work Phone: Evaluation note* Diagnosis Examination for normal comparison or control in clinical research Examination of participant in clinical trial [facility]* Diagnosis Alzheimer's dementia with behavioral disturbance (HCC)- Primary Alzheimer's disease documented in this encounter [facility] note* Diagnosis Examination of participant in clinical trial- Primary documented in this encounter [facility] note* Diagnosis Examination of participant or control in clinical research- Primary Examination of participant in clinical trial [facility]* Diagnosis Examination of participant or control in clinical research- Primary Examination of participant in clinical trial [facility] Diagnosis Examination of participant or control in clinical research Examination of participant in clinical trial documented in this encounter [facility] note* Diagnosis Depression, unspecified depression type documented in this encounter [facility] note* Diagnosis Alzheimer's dementia with behavioral disturbance (HCC)- Primary Alzheimer's disease documented in this encounter [facility] note* Diagnosis Examination of participant or control in clinical research Examination of participant in clinical trial documented in this encounter [facility] note* Diagnosis 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 Irregular heart rate Primary hypertension Unspecified essential hypertension documented in this encounter [facility] note* Diagnosis Irregular heart rate [facility] Diagnosis 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 Irregular heart rate Primary hypertension Unspecified essential hypertension Irregular heart rate documented in this encounter [facility] Discharge instructions No data available for this section [facility] Reason for referral (narrative)* Outpatient Procedure (Routine) - Closed Specialty Diagnoses / Procedures Referred By Rufino estrella Referred To Contact [facility] Diagnoses PSVT (paroxysmal supraventricular tachycardia) ([facility]) Procedures ECG COMPLETE ECG ROUTINE ECG W/LEAST 12 LDS W/I&R Marcus Sorensen DO [address] [place] [address] [facility] [address] [place] [address] Referral ID Status Reason Start Date Expiration Date V isits Requested Visits Authorized [id number] Closed Auto-Generate d Referral 02/28/2022 02/28/2023 1 1 [facility] for referral (narrative)* Diagnostic Procedure Only (Routine) - Pending Review Specialty Diagnoses / Procedures Referred By Rufino estrella Referred To Contact MOLECULAR & FUNCTIONAL IMAGING Diagnoses Examination for normal comparison or control in clinical research Procedures NM PET/CT BRAIN PLAQUE IMAGING PET IMAGING CT FOR ATTENUATION LIMITED AREA Amilcar Bradford MD, MD, PhD [address] [place] [address] [facility] [address] [place] [address] Referral ID Status Reason Start Date Expiration Date Visits Requested Visits Authorized [id number] Pending Review Auto-Generat ed Referral 01/22/2023 02/20/2024 1 1 T [facility] for referral (narrative)* Diagnostic Procedure Only (Routine) - Closed Specialty Diagnoses / Procedures Referred [facility] Referred To Contact [facility]LECULAR [facility] FUNCTIONAL IMAGING Diagnoses Examination for normal comparison or control in clinical research Procedures NM PET/CT BRAIN PLAQUE IMAGING PET IMAGING CT FOR ATTENUATION LIMITED AREA Amilcar Bradford MD, , PhD [address] [id number] [facility] [address] [place] [address] Referral ID Status Reason Start Date Expiration Date V isits Requested Visits Authorized [id number] Closed Auto-Generate d Referral 01/22/2023 02/20/2024 1 1 [facility] for referral (narrative)* Diagnostic Procedure Only (Routine) - Closed Specialty Diagnoses / Procedures Referred By [facility] Referred To Contact MOLECULAR & FUNCTIONAL IMAGING Diagnoses Memory changes Procedures NM PET/CT BRAIN PLAQUE IMAGING PET IMAGING CT FOR ATTENUATION LIMITED AREA Amilcar Bradford MD, MD, PhD [address] [id number] [facility] [address] [place] [address] Referral ID Status Reason Start Date Expiration Date V isits Requested Visits Authorized [id number] Closed Auto-Generate d Referral 09/15/2023 10/13/2024 1 1 [facility] for referral (narrative)* Consultation (Routine) - Pending Review Specialty Diagnoses / Procedures Referred By [facility] Referred To Contact Occupational Therapy / Geriatric Medicine Diagnoses Alzheimer's dementia without behavioral disturbance (HCC) Driving safety issue Procedures IA OFFICE/OUTPATIENT NEW HIGH MDM 60-74 MINUTES Gunjan Castillo MD [address] [place] [address] [facility] [address] [place] [address] Referral ID Status Reason Start Date Expiration Date Visits Requested Visits Authorized [id number] Pending Review Specialty Services Required 3 10/22/2024 99 99 [facility] for referral (narrative)* Diagnostic Procedure Only (Routine) - Pending Review Specialty Diagnoses / Procedures Referred By [facility] Referred To Contact MOLECULAR [facility] FUNCTIONAL IMAGING Diagnoses Examination of participant or control in clinical research Procedures NM PET/CT BRAIN PLAQUE IMAGING PET IMAGING CT FOR ATTENUATION LIMITED AREA Amilcar Bradford MD, , PhD [address] [place] [address] [facility] [address] [place] [address] Referral ID Status Reason Start Date Expiration Date Visits Requested Visits Authorized [id number] Pending Review Auto-Generat ed Referral 04/16/2024 05/15/2025 1 1 T [facility] for referral (narrative)* Diagnostic Procedure Only (Routine) - New Request Specialty Diagnoses / Procedures Referred By [facility] Referred To Contact MOLECULAR & FUNCTIONAL IMAGING Diagnoses Examination of participant or control in clinical research Procedures NM PET/CT BRAIN PLAQUE IMAGING PET IMAGING CT FOR ATTENUATION LIMITED AREA Amilcar Bradford MD, , PhD [address] [place] [address] [facility] [address] [place] [address] Referral ID Status Reason Start Date Expiration Date Visits Requested Visits Authorized [id number] New Request Auto-Generat ed Referral 09/15/2024 10/14/2025 1 1 [facility] for visit Narrative* Diagnostic Procedure Only (Routine) - Closed Specialty Diagnoses / Procedures Referred By Rufino t Referred To Contact MOLECULAR & FUNCTIONAL IMAGING Diagnoses Examination for normal comparison or control in clinical research Procedures NM PET/CT BRAIN PLAQUE IMAGING PET IMAGING CT FOR ATTENUATION LIMITED AREA Amilcar Bradford MD, , PhD [address] [place] [address] Molecular [facility] [address] [place] [address] Referral ID Status Reason Start Date Expiration Date V isits Requested Visits Authorized [id number] Closed Auto-Generate d Referral 01/22/2023 02/20/2024 1 1 [facility] for visit Narrative* Diagnostic Procedure Only (Routine) - Closed Specialty Diagnoses / Procedures Referred By Rufino Referred To Contact MOLECULAR & FUNCTIONAL IMAGING Diagnoses Memory changes Procedures NM PET/CT BRAIN PLAQUE IMAGING PET IMAGING CT FOR ATTENUATION LIMITED AREA Amilcar Bradford MD, MD, PhD [address] [place] [address] [facility] [address] [place] [address] Referral ID Status Reason Start Date Expiration Date V isits Requested Visits Authorized [id number] Closed Auto-Generate d Referral 09/15/2023 10/13/2024 1 1 [facility] for visit Narrative* Diagnostic Procedure Only (Routine) - Closed Specialty Diagnoses / Procedures Referred By Rufino Referred To Contact MOLECULAR & FUNCTIONAL IMAGING Diagnoses Examination of participant or control in clinical research Procedures NM PET/CT BRAIN PLAQUE IMAGING PET IMAGING CT FOR ATTENUATION LIMITED AREA Amilcar Bradford MD MD, PhD [address] [place] [address] Molecular [facility] Functional Imaging [address] [place] [address] Referral ID Status Reason Start Date Expiration Date V isits Requested Visits Authorized [id number] Closed Auto-Generate d Referral 04/16/2024 05/15/2025 1 1 [facility] Diagnostic Procedure Only (Routine) - Closed Specialty Diagnoses / Procedures Referred By Rufino estrella Referred To Contact MOLECULAR & FUNCTIONAL IMAGING Diagnoses Examination of participant or control in clinical research Procedures NM PET/CT BRAIN PLAQUE IMAGING PET IMAGING CT FOR ATTENUATION LIMITED AREA Amilcar Bradford MD, , PhD [address] [place] [address] Molecular [facility] Functional Imaging [address] [place] [address] Referral ID Status Reason Start Date Expiration Date V isits Requested Visits Authorized [id number] Closed Auto-Generate d Referral 09/15/2024 10/14/2025 1 1 [facility] Summary Purpose Family History No Family History Records Found Relationship Condition Age at Onset Recorded Date/T debbie mother Malignant neoplasm Unknown Malignant neoplasm of ovary Unknown daughter Malignant neoplasm of breast Unknown uncle Cardiac disease Unknown Advance Directives No Advanced Directives Records FoundDocuments on File Type Date Recorded 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 Advance Directive(s) 10/06/2019 2:19 PM Documents on File Type Date Recorded 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 ACP-Advance Directive 11/11/2021 Chief Complaint and Reason for Visit Chief Complaint (L) butt cheek painf ul Reason for Visit Acute buttock pain Hyperlipidemia Shingles Chief Complaint Lower back pain Urinary tract infection Reason for Visit Alzheimer's dementia Sciatica, left side Alzheimer's dementia Change in mental status Panic attacks Sciatica, left side Reason for Referral Specialty Diagnoses / Procedures Referred By Rufino estrella Referred To Contact MR IMAGING Diagnoses Examination for normal comparison or control in clinical research Procedures MRI BRAIN WO IVCON MRI BRAIN BRAIN STEM W/O CONTRAST MATERIAL Amilcar Bradford MD, MD, PhD [address] [place] [address] [place] [address] Referral ID Status Reason Start Date Expiration Date Visits Requested Visits Authorized [id number] Pending Review Auto-Generat ed Referral 01/27/2024 02/24/2025 1 1 Additional Source Comments INFORMATION SOURCE (unrecogn ized section and content) DATE CREATED AUTHOR 08/21/2021 [facility] ([place]) DATE CREATED AUTHOR AUTHOR'S ORGANIZ ATION 11/15/2021 [facility] DATE CREATED AUTHOR AUTHOR'S ORGANIZ ATION 08/30/2022 [facility] DATE CREATED AUTHOR AUTHOR'S ORGANIZ ATION [facility]/2023 [facility] DATE CREATED AUTHOR AUTHOR'S ORGANIZ ATION 09/01/2024 [facility] DATE CREATED AUTHOR AUTHOR'S ORGANIZ ATION 02/25/2025 [facility] DATE CREATED AUTHOR AUTHOR'S ORGANIZ ATION 03/17/2025 [facility] DATE CREATED AUTHOR AUTHOR'S ORGANIZ ATION 04/06/2025 [facility] Source Comments (unrecognize d section and content) In the event this informatio n is protected by the Federal Confidentiality of Alcohol and Drug Abuse Patient Records regulations: The Federal rules restrict any use of the information to criminally investigate or prosecute any alcohol or drug abuse patient.[facility] the event this information is protected by the Federal Confidentiality of Alcohol and Drug Abuse Patient Records regulations: The Federal rules restrict any use of the information to criminally investigate or prosecute any alcohol or drug abuse patient.[facility] the event this information is protected by the Federal Confidentiality of Alcohol and Drug Abuse Patient Records regulations: The Federal rules restrict any use of the information to criminally investigate or prosecute any alcohol or drug abuse patient.[facility] the event this information is protected by the Federal Confidentiality of Alcohol and Drug Abuse Patient Records regulations: The Federal rules restrict any use of the information to criminally investigate or prosecute any alcohol or drug abuse patient.[facility] AndersonIn the event this information is protected by the Federal Confidentiality of Alcohol and Drug Abuse Patient Records regulations: The Federal rules restrict any use of the information to criminally investigate or prosecute any alcohol or drug abuse patient.[facility] AndersonIn the event this information is protected by the Federal Confidentiality of Alcohol and Drug Abuse Patient Records regulations: The Federal rules restrict any use of the information to criminally investigate or prosecute any alcohol or drug abuse patient.[facility] AndersonIn the event this information is protected by the Federal Confidentiality of Alcohol and Drug Abuse Patient Records regulations: The Federal rules restrict any use of the information to criminally investigate or prosecute any alcohol or drug abuse patient.[facility] AndersonIn the event this information is protected by the Federal Confidentiality of Alcohol and Drug Abuse Patient Records regulations: The Federal rules restrict any use of the information to criminally investigate or prosecute any alcohol or drug abuse patient.[facility] AndersonIn the event this information is protected by the Federal Confidentiality of Alcohol and Drug Abuse Patient Records regulations: The Federal rules restrict any use of the information to criminally investigate or prosecute any alcohol or drug abuse patient.[facility] AndersonIn the event this information is protected by the Federal Confidentiality of Alcohol and Drug Abuse Patient Records regulations: The Federal rules restrict any use of the information to criminally investigate or prosecute any alcohol or drug abuse patient.[facility] AndersonIn the event this information is protected by the Federal Confidentiality of Alcohol and Drug Abuse Patient Records regulations: The Federal rules restrict any use of the information to criminally investigate or prosecute any alcohol or drug abuse patient.[facility] AndersonIn the event this information is protected by the Federal Confidentiality of Alcohol and Drug Abuse Patient Records regulations: The Federal rules restrict any use of the information to criminally investigate or prosecute any alcohol or drug abuse patient.[facility] AndersonIn the event this information is protected by the Federal Confidentiality of Alcohol and Drug Abuse Patient Records regulations: The Federal rules restrict any use of the information to criminally investigate or prosecute any alcohol or drug abuse patient.[facility] AndersonIn the event this information is protected by the Federal Confidentiality of Alcohol and Drug Abuse Patient Records regulations: The Federal rules restrict any use of the information to criminally investigate or prosecute any alcohol or drug abuse patient.[facility] AndersonIn the event this information is protected by the Federal Confidentiality of Alcohol and Drug Abuse Patient Records regulations: The Federal rules restrict any use of the information to criminally investigate or prosecute any alcohol or drug abuse patient.[facility] AndersonIn the event this information is protected by the Federal Confidentiality of Alcohol and Drug Abuse Patient Records regulations: The Federal rules restrict any use of the information to criminally investigate or prosecute any alcohol or drug abuse patient.[facility] AndersonIn the event this information is protected by the Federal Confidentiality of Alcohol and Drug Abuse Patient Records regulations: The Federal rules restrict any use of the information to criminally investigate or prosecute any alcohol or drug abuse patient.[facility] AndersonIn the event this information is protected by the Federal Confidentiality of Alcohol and Drug Abuse Patient Records regulations: The Federal rules restrict any use of the information to criminally investigate or prosecute any alcohol or drug abuse patient.[facility] AndersonIn the event this information is protected by the Federal Confidentiality of Alcohol and Drug Abuse Patient Records regulations: The Federal rules restrict any use of the information to criminally investigate or prosecute any alcohol or drug abuse patient.[facility] AndersonIn the event this information is protected by the Federal Confidentiality of Alcohol and Drug Abuse Patient Records regulations: The Federal rules restrict any use of the information to criminally investigate or prosecute any alcohol or drug abuse patient.[facility] AndersonIn the event this information is protected by the Federal Confidentiality of Alcohol and Drug Abuse Patient Records regulations: The Federal rules restrict any use of the information to criminally investigate or prosecute any alcohol or drug abuse patient.[facility] AndersonIn the event this information is protected by the Federal Confidentiality of Alcohol and Drug Abuse Patient Records regulations: The Federal rules restrict any use of the information to criminally investigate or prosecute any alcohol or drug abuse patient.[facility] AndersonIn the event this information is protected by the Federal Confidentiality of Alcohol and Drug Abuse Patient Records regulations: The Federal rules restrict any use of the information to criminally investigate or prosecute any alcohol or drug abuse patient.[facility] Reason for Visit (unrecogniz ed section and content) Reason Comments Radiology NM Specialty Diagnoses / Procedures Referred By Rufino estrella Referred To Contact MOLECULAR & FUNCTIONAL IMAGING Diagnoses Examination of participant or control in clinical research Procedures NM PET/CT BRAIN PLAQUE IMAGING PET IMAGING CT FOR ATTENUATION LIMITED AREA Amilcar Bradford MD, MD, PhD [address] [id number] Molecular & Functional Imaging [address] [place] [address] Referral ID Status Reason Start Date Expiration Date V isits Requested Visits Authorized [id number] Closed Auto-Generate d Referral 09/15/2024 10/14/2025 1 1 Reason Comments Cardiology Follow Up Reason Comments NM RESEARCH Reason Comments Dementia Reason Comments New patient, to establish relationship Nevus/mole neck Reason Onset Date Comments Med Refill 07/03/2023 Reason Comments Opened In Error Reason Comments Dementia Reason Onset Date Comments Med Refill 12/28/2023 Reason Onset Date Comments Dementia 01/25/2024 Reason Comments Radiology MRI Specialty Diagnoses / Procedures Referred By Rufino estrella Referred To Contact MR IMAGING Diagnoses Examination for normal comparison or control in clinical research Procedures MRI BRAIN WO IVCON MRI BRAIN BRAIN STEM W/O CONTRAST MATERIAL Amilcar Bradford MD, MD, PhD [address] [id number] [facility] [place] [address] Referral ID Status Reason Start Date Expiration Date V isits Requested Visits Authorized [id number] Closed Auto-Generate d Referral 01/27/2024 02/24/2025 1 1 Reason Onset Date Comments Med Refill 07/22/2024 Reason Comments Returning Patient's Call Reason Onset Date Comments Cancelled Appointment 02/19/2023 Cancel and reschedule Reason Onset Date Comments Med Refill 01/24/2025 Reason Comments Radiology MRI Research brain Reason Comments Memory Loss Reason Comments Radiology MRI Scanned under resear number. Care Teams (unrecognized sec tion and content) Technical Support Agent Relationship Specialty Start Date End Date Emi Cook, SIRIA.SECOND CRUSHER [address] [place], [place] [phone] PCP - General Family Practice 10/06/19 Technical Support Agent Relationship Specialty Start Date End Date Emi Cook [address] [address] PCP - General Nurse Practitioner 09/10/21 Technical Support Agent Relationship Specialty Start Date End Date Emi Cook, SIRIA.SECOND CRUSHER [address] [place], [place] [phone] PCP - General Family Medicine 10/06/19 Team Status: Active Member Role Status Dates Emi Cook SPECIAL LIBRARY LIBRARIAN, SPECIAL LIBRARY LIBRARIAN-C Primary Care Provider Active Team Status: Inactive Member Role Status Dates Emi Cook SPECIAL LIBRARY LIBRARIAN, SPECIAL LIBRARY LIBRARIAN-C Primary Care Pr ovider, Attending Provider, Referring Provider Active Team Status: Inactive Member Role Status Dates Emi Cook SPECIAL LIBRARY LIBRARIAN, SPECIAL LIBRARY LIBRARIAN-C Primary Care Provider, Attend ing Provider Active Technical Support Agent Relationship Specialty Start Date End Date Emi Cook, SIRIA.SECOND CRUSHER [address] [place], [place] [phone] PCP - General Family Medicine 10/06/19 Technical Support Agent Relationship Specialty Start Date End Date Emi Cook, SIRIA.SECOND CRUSHER [address] [place], [place] [phone] PCP - General Family Medicine 10/06/19 Technical Support Agent Relationship Specialty Start Date End Date Emi Cook, FIELD CROP TECHNICAL OFFICER.SECOND CRUSHER [address] [place], [place] [phone] PCP - General Family Medicine 10/06/19 Technical Support Agent Relationship Specialty Start Date End Date Emi Cook [address] [place] [address] PCP - General 09/10/21 Technical Support Agent Relationship Specialty Start Date End Date Emi Cook [address] [place] [address] PCP - General 09/10/21 Technical Support Agent Relationship Specialty Start Date End Date mEi Cook, FIELD CROP TECHNICAL OFFICER.SECOND CRUSHER [address] [place], [place] [phone] PCP - General Family Medicine 10/06/19 Technical Support Agent Relationship Specialty Start Date End Date Emi Cook, FIELD CROP TECHNICAL OFFICER.SECOND CRUSHER [address] [place] [address] PCP - General Family Medicine 10/06/19 Technical Support Agent Relationship Specialty Start Date End Date CookEmi ocasio, FIELD CROP TECHNICAL OFFICER.SECOND CRUSHER [address] [place] [address] PCP - General Family Medicine 10/06/19 Technical Support Agent Relationship Specialty Start Date End Date Emi Cook, FIELD CROP TECHNICAL OFFICER.SECOND CRUSHER [address] [place], [place] [phone] PCP - General Family Medicine 10/06/19 Technical Support Agent Relationship Specialty Start Date End Date Emi Cook [address] [place] [address] PCP - General 09/10/21 Technical Support Agent Relationship Specialty Start Date End Date JoeyEmi [address] [place] [address] PCP - General 09/10/21 Technical Support Agent Relationship Specialty Start Date End Date JoeyEmi [address] [facility] [place] [address] PCP - General Nurse Practitioner 01/25/24 Technical Support Agent Relationship Specialty Start Date End Date Emi Cook, FIELD CROP TECHNICAL OFFICER.SECOND CRUSHER [address] [place], [place] [phone] PCP - General Family Medicine 10/06/19 Technical Support Agent Relationship Specialty Start Date End Date Cook, Dora [address] [address] PCP - General Nurse Practitioner 01/25/24 Technical Support Agent Relationship Specialty Start Date End Date Emi Cook, FIELD CROP TECHNICAL OFFICER.SECOND CRUSHER [address] [facility] [place] [phone] PCP - General Family Medicine 10/06/19 Technical Support Agent Relationship Specialty Start Date End Date Ventura Cooka [address] [facility] [place] [address] PCP - General Nurse Practitioner 01/25/24 Technical Support Agent Relationship Specialty Start Date End Date Emi Cook, FIELD CROP TECHNICAL OFFICER.SECOND CRUSHER [address] [facility] [place] [phone] PCP - General Family Medicine 10/06/19 Technical Support Agent Relationship Specialty Start Date End Date Emi Cook, FIELD CROP TECHNICAL OFFICER.SECOND CRUSHER [address] [place], [place] [phone] PCP - General Family Medicine 10/06/19 Technical Support Agent Relationship Specialty Start Date End Date Celina Levy MD [address] [place] [address] Physician Dermatology 05/09/23 Technical Support Agent Relationship Specialty Start Date End Date Emi Cook [address] [place], [place] [phone] PCP - General Nurse Practitioner 01/25/24 Technical Support Agent Relationship Specialty Start Date End Date Emi Cook, FIELD CROP TECHNICAL OFFICER.SECOND CRUSHER [address] [place], [place] [phone] PCP - General Family Medicine 10/06/19 Technical Support Agent Relationship Specialty Start Date End Date Emi Cook, FIELD CROP TECHNICAL OFFICER.SECOND CRUSHER [address] [place], [place] [phone] PCP - General Family Medicine 10/06/19 Technical Support Agent Relationship Specialty Start Date End Date Emi Cook [address] [address] PCP - General 09/10/21 Technical Support Agent Relationship Specialty Start Date End Date Emi Cook [address] [place] [address] PCP - General Nurse Practitioner 01/25/24 Technical Support Agent Relationship Specialty Start Date End Date Emi Cook, FIELD CROP TECHNICAL OFFICER.SECOND CRUSHER [address] [place], [place] [phone] PCP - General Family Medicine 10/06/19 Technical Support Agent Relationship Specialty Start Date End Date Emi Cook [address] [address] PCP - General Nurse Practitioner 01/25/24 Technical Support Agent Relationship Specialty Start Date End Date Emi Cook [address] [address] PCP - General Nurse Practitioner 01/25/24 Technical Support Agent Relationship Specialty Start Date End Date Celina Levy MD [address] [place] [address] Physician Dermatology 05/09/23 Goals (unrecognized section and content) Goals may be documented in a n alternate section FOR RECORDS PERTAINING TO PATIENTS WHO ARE OR HAVE BEEN ENROLLED IN A CHEMICAL DEPENDENCY/SUBSTANCEABUSE PROGRAM, SOME INFORMATION MAY BE OMITTED. This clinical summary was aggregated from multiple sources. Caution should be exercised in using it in the provision of clinical care. This summary normalizes information from multiple sources, and as a consequence, information in this document may materially change the coding, format and clinical context of patient data. In addition, data may be omitted in some cases. CLINICAL DECISIONS SHOULD BE BASED ON THE PRIMARY CLINICAL RECORDS. [facility] [employer] [facility]. provides no warranty or guarantee of the accuracy or completeness of information in this document.
[2025-05-30 08:12] LABS: T4 Total, Thyroxin 5.3 ug/dL (4.8-13.9)
== END ==
LOC: OLS.SW 04:00
PROVIDERS: PCP Nurse Practitioner; Referring Provider Family Medicine; Visit Provider Family Medicine
DX: E03.9 Hypothyroidism, unspecified (principal)
CPT/HCPCS: 36415; 84436; 84443

== ENCOUNTER → 2025-06-01 05:00 | Outpatient (REF) | payer MEDICARE, SELFPAY ==
--- OUTSIDE RECORDS SUMMARY | 2025-06-01 04:13 | XMS RPT_ITS | CCD ---
Author Organization [facility] Care Team Providers Care Beef Lugger Name Role Phone HAWK PERKINS, DR ROSEMARY Molina Primary Care Physician [phone] CUTTER.Emi LOPEZ Primary Care Provide r Yoselyn Paez Attending Unavailable Cook, Emi Primary Care Unavailable PROVIDER, UNKNOWN Referring Unavailable PROVIDER, UNKNOWN Referring Unavailable GUNJAN CASTILLO Attending Unavailabl e Cook, Emi Primary Care Unavailable PROVIDER, UNKNOWN Referring Unavailable GUNJAN CASTILLO Attending Unavailabl e Cook, Emi Primary Care Unavailable PROVIDER, UNKNOWN Referring Unavailable GUNJAN CASTILLO Attending Unavailabl e Cook, Mei Primary Care Unavailable PROVIDER, UNKNOWN Referring Unavailable GUNJAN CASTILLO Attending Unavailabl e Cook, Emi Primary Care Unavailable Cook, Emi Primary Care Provider [phone] CUTTER.Emi LOPEZ Primary Care Provide r Ventura Cooka Primary Care Provider PROVIDER, UNKNOWN Attending Unavailable PROVIDER, UNKNOWN Admitting Unavailable PATIENT, SELF Referring Unavailable Unavailable Primary Care Provider Unavailabl e Joey, Mei Primary Care Provider [phone] Joey, Emi Primary Care Provider [phone] CUTTER.Emi LOPEZ Primary Care Provide r Mildred PERKINS, Celina Unavailable COOK, EMI L Primary Care Unavailable PUSHJACQUIE, NIKC Admitting Unavailable EDDIE NICK Attending Unavailable SHAKILA WARE Attending Unavailable COOK, EMI L Primary Care Unavailable COOK, EMI L Primary Care Unavailable SHAKILA RUIZ Attending Unavailable COOK, EMI Primary Care Unavailable SIMTRACI COUCHSA Attending Unavailable SIMMERS, GUNJAN Attending Unavailable COOK, EMI Primary Care Unavailable COOK, EMI Primary Care Unavailable SIMMERS, GUNJAN Referring Unavailable SIMMERS, GUNJAN Attending Unavailable BRADFORD, AMILCAR Referring Unavailable COOK, EMI L Primary Care Unavailable BRADFORD, AMILCAR Referring Unavailable COOK, EMI L Primary Care Unavailable AMILCAR BRADFORD Referring Unavailable COOK, EMI L Primary Care Unavailable COOK, EMI L Primary Care Unavailable COOK, EMI L Primary Care Unavailable BRADFORD, AMILCAR Referring Unavailable COOK, EMI L Primary Care Unavailable SUZETTE, AMILCAR Referring Unavailable COOK, EMI L Primary Care Unavailable COOK, EMI L Primary Care Unavailable Cook ENVIRONMENTAL MAINTENANCE WORKER, Emi Referring Unavailable Cook ENVIRONMENTAL MAINTENANCE WORKER, Emi Attending Unavailable Cook ENVIRONMENTAL MAINTENANCE WORKER, Emi Primary Care Unavailable Josué Orr Attending Unavailable Cook ENVIRONMENTAL MAINTENANCE WORKER, Emi Primary Care Unavailable Josué Orr Attending Unavailable Cook ENVIRONMENTAL MAINTENANCE WORKER, Emi Primary Care Unavailable Allergies Allergy Classification Reported Allergen(s) Allergy Type Date of Onset Reaction(s) Facility (3 sources) cat dander; Translations: [cat dander] Allergy to substance 2 NEEDS FOLLOW-UP [facility] Medications Current Medications Medication Drug Class(es) Dates [...] 10 mg oral tablet (20 sources) Start: End: take 1 tablet by mouth once daily [...] hydrochloride 10 mg oral tablet (20 sources) J-zafejt-A-aspartate Receptor Antagonist Start: 04-09-2023 memantine (NAMENDA) 10 [...] Test Name Value Interpretation Reference Range Facility T4 Total, Thyroxinon 025 T4 [Mass/Vol] 5.3 ug/dL Normal 4.8-13.9 [facility] Comment on above: Order Comment: 410.2 Performed By: #### L 501.9310, L501.9520 #### [facility] [address] [place], [address] Thyroid Stim Hormone (TSH)on 05-30-2025 TSH 4.480 uIU/mL High 0.300-4.200 [facility] Comment on above: Order Comment: 410.2 Performed By: #### L 501.9310, L501.9520 #### [facility] [address] [place], [address] CBC-Complete Blood Cnt No Di ffon 03-10-2025 Erythrocyte distribution width (RBC) [Ratio] 12.8 % Normal 11.6-14.6 [facility] Comment on above: Order Comment: 402-1 Performed By: #### L 501.9310, L501.9985, L100.0500, L501.9520, L500.4050, L500.4100 #### [facility] [address] [place], [address] Hematocrit (Bld) [Volume fraction] 39.0 % Normal 37-47 [facility] Comment on above: Order Comment: 402-1 Performed By: #### L 501.9310, L501.9985, L100.0500, L501.9520, L500.4050, L500.4100 #### [facility] [address], [address] Hemoglobin (Bld) [Mass/Vol] 13.2 g/dL Normal 12.0-15.0 [facility] Comment on above: Order Comment: 402-1 Performed By: #### L 501.9310, L501.9985, L100.0500, L501.9520, L500.4050, L500.4100 #### [facility] [address] [place], [address] MCH (RBC) [Entitic mass] 31.0 pg Normal 27.0-32.0 [facility] Comment on above: Order Comment: 402-1 Performed By: #### L 501.9310, L501.9985, L100.0500, L501.9520, L500.4050, L500.4100 #### [facility] [address] [place], [address] MCHC (RBC) [Mass/Vol] 33.8 g/dL Normal 32-36 [facility] Comment on above: Order Comment: 402-1 Performed By: #### L 501.9310, L501.9985, L100.0500, L501.9520, L500.4050, L500.4100 #### [facility] [address] [place], [address] MCV (RBC) [Entitic vol] 91.5 fL Normal 81-99 [facility] Comment on above: Order Comment: 402-1 Performed By: #### L 501.9310, L501.9985, L100.0500, L501.9520, L500.4050, L500.4100 #### [facility] [address] [place], [address] Platelet mean volume (Bld) [Entitic vol] 9.6 fL Normal 6.2-12.0 [facility] Comment on above: Order Comment: 402-1 Performed By: #### L 501.9310, L501.9985, L100.0500, L501.9520, L500.4050, L500.4100 #### [facility] [address] [place], [address] Platelets (Bld) [#/Vol] 291 10*3/uL Normal 150-450 [facility] Comment on above: Order Comment: 402-1 Performed By: #### L 501.9310, L501.9985, L100.0500, L501.9520, L500.4050, L500.4100 #### [facility] [address] [place], [address] RBC (Bld) [#/Vol] 4.26 10*6/uL Normal 4.2-5.4 [facility] Comment on above: Order Comment: 402-1 Performed By: #### L 501.9310, L501.9985, L100.0500, L501.9520, L500.4050, L500.4100 #### [facility] [address] [place], [address] RDW SD 42.4 fl Normal 35.1-43.9 [facility] Comment on above: Order Comment: 402-1 Performed By: #### L 501.9310, L501.9985, L100.0500, L501.9520, L500.4050, L500.4100 #### [facility] [address] [place], [address] WBC (Bld) [#/Vol] 8.2 10*3/uL Normal 4.4-11.0 [facility] Comment on above: Order Comment: 402-1 Performed By: #### L 501.9310, L501.9985, L100.0500, L501.9520, L500.4050, L500.4100 #### [facility] [address] [place], [address] Comprehensive Metabolic Prof [facility] 03-10-2025 Albumin [Mass/Vol] 4.1 g/dL Normal 3.4-4.8 [facility] Comment on above: Order Comment: 402-1 Performed By: #### L 501.9310, L501.9985, L100.0500, L501.9520, L500.4050, L500.4100 #### [facility] [address] [place], [address] Albumin/Globulin [Mass ratio] 1.4 {ratio} Normal 0.9-2.4 [facility] Comment on above: Order Comment: 402-1 Performed By: #### L 501.9310, L501.9985, L100.0500, L501.9520, L500.4050, L500.4100 #### [facility] [address] [place], [address] ALK PHOS 73 U/L Normal 35-104 [facility] Comment on above: Order Comment: 402-1 Performed By: #### L 501.9310, L501.9985, L100.0500, L501.9520, L500.4050, L500.4100 #### [facility] [address] [place], [address] ALT [Catalytic activity/Vol] 14 U/L Normal <=34 [facility] Comment on above: Order Comment: 402-1 Performed By: #### L 501.9310, L501.9985, L100.0500, L501.9520, L500.4050, L500.4100 #### [facility] [address] [place], [address] AST [Catalytic activity/Vol] 21 U/L Normal <=31 [facility] Comment on above: Order Comment: 402-1 Performed By: #### L 501.9310, L501.9985, L100.0500, L501.9520, L500.4050, L500.4100 #### [facility] [address] [place], [address] Bilirubin [Mass/Vol] 0.26 mg/dL Normal 0.00-1.30 [facility] Comment on above: Order Comment: 402-1 Performed By: #### L 501.9310, L501.9985, L100.0500, L501.9520, L500.4050, L500.4100 #### [facility] [address] [place], [address] BUN/CRE 16.2 RATIO Normal 10-20 [facility] Comment on above: Order Comment: 402-1 Performed By: #### L 501.9310, L501.9985, L100.0500, L501.9520, L500.4050, L500.4100 #### [facility] [address] [place], [address] Calcium [Mass/Vol] 9.6 mg/dL Normal 7.6-11.0 [facility] Comment on above: Order Comment: 402-1 Performed By: #### L 501.9310, L501.9985, L100.0500, L501.9520, L500.4050, L500.4100 #### [facility] [address] [place], [address] Chloride [Moles/Vol] 107 mmol/L Normal 98-108 [facility] Comment on above: Order Comment: 402-1 Performed By: #### L 501.9310, L501.9985, L100.0500, L501.9520, L500.4050, L500.4100 #### [facility] [address] [place], [address] CO2 [Moles/Vol] 24.8 mmol/L Normal 21.0-32.0 [facility] Comment on above: Order Comment: 402-1 Performed By: #### L 501.9310, L501.9985, L100.0500, L501.9520, L500.4050, L500.4100 #### [facility] [address] [place], [address] Creatinine [Mass/Vol] 0.82 mg/dL Normal 0.70-1.20 [facility] Comment on above: Order Comment: 402-1 Performed By: #### L 501.9310, L501.9985, L100.0500, L501.9520, L500.4050, L500.4100 #### [facility] [address] [place], [address] GAP 11 Normal 5-15 [facility] Comment on above: Order Comment: 402-1 Performed By: #### L 501.9310, L501.9985, L100.0500, L501.9520, L500.4050, L500.4100 #### [facility] [address] [place], [address] GFR/1.73 sq M.predicted among non-blacks MDRD (S/P/Bld) [Vol rate/Area] 74 mL/min/{1.73_m2} Normal >60 [facility] Comment on above: Order Comment: 402-1 Result Comment: mL/m in/1.73m2 CKD-EPI Creatinine Equation (2020) Performed By: #### L 501.9310, L501.9985, L100.0500, L501.9520, L500.4050, L500.4100 #### [facility] [address] [place], [address] Globulin (S) [Mass/Vol] 3.0 g/dL Normal 2.2-4.2 [facility] Comment on above: Order Comment: 402-1 Performed By: #### L 501.9310, L501.9985, L100.0500, L501.9520, L500.4050, L500.4100 #### [facility] [address] [place], [address] Glucose [Mass/Vol] 102 mg/dL High 70-99 [facility] Comment on above: Order Comment: 402-1 Performed By: #### L 501.9310, L501.9985, L100.0500, L501.9520, L500.4050, L500.4100 #### [facility] [address] [place], [address] Potassium [Moles/Vol] 4.1 mmol/L Normal 3.3-5.1 [facility] Comment on above: Order Comment: 402-1 Performed By: #### L 501.9310, L501.9985, L100.0500, L501.9520, L500.4050, L500.4100 #### [facility] [address] [place], [address] Sodium [Moles/Vol] 143 mmol/L Normal 133-145 [facility] Comment on above: Order Comment: 402-1 Performed By: #### L 501.9310, L501.9985, L100.0500, L501.9520, L500.4050, L500.4100 #### [facility] [address] [place], [address] T PROT 7.2 g/dL Normal 5.9-8.4 [facility] Comment on above: Order Comment: 402-1 Performed By: #### L 501.9310, L501.9985, L100.0500, L501.9520, L500.4050, L500.4100 #### [facility] [address] [place], [address] Urea nitrogen [Mass/Vol] 13 mg/dL Normal 4-19 [facility] Comment on above: Order Comment: 402-1 Performed By: #### L 501.9310, L501.9985, L100.0500, L501.9520, L500.4050, L500.4100 #### [facility] [address] [place], [address] Hemoglobin A1con 03-10-2025 HbA1c (Bld) [Mass fraction] 5.7 % Normal <=5.6 [facility] Comment on above: Order Comment: 402-1 Result Comment: Norm al < 5.7 % Prediabetic 5.7 - 6.4 % Diabetic >or= 6.5 % Please note range changes. Performed By: #### L 501.9310, L501.9985, L100.0500, L501.9520, L500.4050, L500.4100 #### [facility] [address] [place], [address] Lipid Profileon 03-10-2025 CHOL:HDL 3.43 Normal [facility] Comment on above: Order Comment: 402-1 Performed By: #### L 501.9310, L501.9985, L100.0500, L501.9520, L500.4050, L500.4100 #### [facility] [address] [place], [address] Cholesterol [Mass/Vol] 214 mg/dL High <=200 [facility] Comment on above: Order Comment: 402-1 Result Comment: Chol esterol level, Desirable <200 mg/dL Borderline high cholesterol 200-239 mg/dL High cholesterol >=240 mg/dL Recommendations of the NCEP Adult Treatment Panel for the following risk-cutoff thresholds for the [place] population. Performed By: #### L 501.9310, L501.9985, L100.0500, L501.9520, L500.4050, L500.4100 #### [facility] [address] [place], [address] Cholesterol in HDL [Mass/Vol] 62 mg/dL Normal [facility] Comment on above: Order Comment: 402-1 Result Comment: María onal Cholesterol Education Program (NCEP) guidelines: <40 mg/dL: Low HDL-cholesterol (major risk factor for CHD) >= 60 mg/dL: High HDL-cholesterol (negative risk factor for CHD) HDL-cholesterol is affected by a number of factors, e.g. smoking, exercise, hormones, sex and age. Performed By: #### L 501.9310, L501.9985, L100.0500, L501.9520, L500.4050, L500.4100 #### [facility] [address] [place], [address] Cholesterol in LDL [Mass/Vol] 136 mg/dL Normal [facility] Comment on above: Order Comment: 402-1 Result Comment: Bord jpgygg=459-955 mg/dL Higher Vtod=052 mg/dL or greater Performed By: #### L 501.9310, L501.9985, L100.0500, L501.9520, L500.4050, L500.4100 #### [facility] [address] [place], [address] Cholesterol in VLDL [Mass/Vol] 16 mg/dL Normal 5-40 [facility] Comment on above: Order Comment: 402-1 Performed By: #### L 501.9310, L501.9985, L100.0500, L501.9520, L500.4050, L500.4100 #### [facility] [address] [place], [address] Triglyceride [Mass/Vol] 78 mg/dL Normal [facility] Comment on above: Order Comment: 402-1 Result Comment: The drugs N-Acetylcysteine and Metamizole may falsely depress this assay. Normal range: <150 mg/dL Borderline High: 150-199 mg/dL High: 200-499 mg/dL Very High: >500 mg/dL Performed By: #### L 501.9310, L501.9985, L100.0500, L501.9520, L500.4050, L500.4100 #### [facility] [address] [place], [address] T4 Total, Thyroxinon 025 T4 [Mass/Vol] 5.1 ug/dL Normal 4.8-13.9 [facility] Comment on above: Order Comment: 402-1 Performed By: #### L 501.9310, L501.9985, L100.0500, L501.9520, L500.4050, L500.4100 #### [facility] [address] [place], [address] Thyroid Stim Hormone (TSH)on 03-10-2025 TSH 4.260 uIU/mL High 0.300-4.200 [facility] Comment on above: Order Comment: 410.2 Performed By: #### L 501.9310, L501.9520 #### [facility] [address] [place], [address] ECG 12 leadOrdered By: Fabricio Moctezuma on 02-24-2025 Heart rate 63 /min bpm [employer] Work Phone: P [place] 39 degrees [employer] Work Phone: [place] Interval 158 ms [employer] Work Phone: QRS [place] -15 degrees [employer] Work Phone: QRSD Interval 68 ms [employer] Work Phone: QT Interval 396 ms [employer] Work Phone: QTC Interval 405 ms [employer] Work Phone: T Wave [place] 25 degrees [employer] Work Phone: [employer] Work Phone: ECG 12 leadon 02-24-2025 Fabricio Moctezuma MD - 02/24/2025 IMPRESSION: Sinus rhythm Ventricular premature complex Abnormal R-wave progression, early transition No previous ECG available for comparison Electronically Signed On 02-24-2025 10:47:30 EDT by Fabricio Moctezuma [employer] 36on 02-23-2025 36 Requested papers wer e signed by Dr Castillo and faxed to [phone]. [place] [address] Thanks! Patient will be moving into [facility]. They need the following per daughter: -History and Physical -Face Sheet -Med List -Progress Notes -Discharge orders ( statement from the physician recommending Blood Collector Care Placement) They could be sent by email or fax to [email or web address] F: [phone]" Can you print out today's note, today's letter, a facesheet, and a medication list? Once I sign the note/letter, then this can be faxed to [facility]. Thanks! [facility] 36 I spoke to Elizabeth and she said it was recently changed to: 25 mg at 10:00 am, 25 mg at 2:00 pm, 50 mg at 5:00 pm and 50 mg at 8:00 pm Normal [facility] 36 Can you call and confirm the quetiapine (Seroquel) dosing with daughter Elizabeth? We have the dose as 50 mg at lunch, 50 mg at 4 pm, and 100 mg at 8 pm. I want to make sure it is correct on the Med list for the [facility] Office Visiton 02-23-2025 Follow-up visit [id number] Manas [place] 1945 F Date Provider Department Center 02/23/2025 [id number]-MOSUXRIGUNJAN CASTILLO [facility] CS None Family History Problem Relation Age of Onset Dementia Maternal Grandmother Family Status - Relation Status Age at Maternal Grandmother Level of Service:[address] [place] OFFICE/OUTPATIENT ESTABLISHED HIGH MDM 40 MIN Reason for Visit and Comments: Memory Loss [66] [facility] Progress Noteon 02-23-2025 Progress Note Senior Services/Geriatrics Social History Present at visit: patient, son Hao Marital status: Children: 2 children (both local) Living arrangement: alone, own condo, moved here close to daughter in 2018 from [place] >>02/17/22 same >>02/26/23 same >>10/22/23 same >>02/25/24 same- now has 24 hour live in aide >>08/25/24 same >>02/23/25 getting ready to move to [facility], still currently at home with 24 hour [...] of education: some college 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 Activities: watches tv, spends time with cat >>02/17/22 just went on vacation, walks in condo, plays cards, plays piano, visiting friends >>08/22/22 outside, TV, cat sits out with neighbor, mandaen, >>02/26/23 walks, visits with neighbors, mandaen, kids' sports games, just came back from vacation >>10/22/23 same >>02/25/24 visits with aide, getting to physical therapy, going on walks >>08/25/24 visits with aides, goes to [facility], goes to [facility] >>02/23/25 same Exercise: walks around her house >>02/17/22 walking, weights >>08/22/22 walks around the condo or in her neighborhood >>02/26/23 walks >>10/22/23 walks >>02/25/24 walks, physical therapy >>08/25/24 walking, goint to [facility] Finances: meeting soon with Medicaid attorney at law Healthcare Power of Public Health Teacher: Yes, Daughter Elizabeth Financial Power of Public Health Teacher: Yes, Daughter Elizabeth Living Will: Yes Guardian:No [...] sees her sometimes >>02/25/24 has 24 hour care management coordinator, Xochitl who is living with her, another [...] members. SW suggested that daughter check out [email or web address] to check out any other prod (more content not included)... Normal [facility] Progress Note Review of Systems Constitutional: Negative [...] for hallucinations. The patient is nervous/anxious. Normal [facility] Progress Note [facility] [place] [address] [facility] [address] Dept: [phone] Dept Loc: [phone] Visit type: [facility] Follow Up Visit Reason for Visit: [...] -Plan is for patient to move into [facility] care unit. I agree that she is appropriate for [facility] care placement at this time due to Alzheimer's Disease. Needs 24/7 supervision due wandering risk. Needs medication administration [...] Disease, hypertension, depression who presents to the [facility] for a follow-up visit. The patient [...] for sleep as well. MMSE 11/07 Received mychart message from the family: Patient will be moving into a memory care unit at [facility]. Will do the H and P for [...] "wants to escape"). -Has a 24 hour surgery consultant. -Sleep: Better now. -Appetite: Still eats well. [...] See administration (more content not included)... Normal [facility] 36on 01-24-2025 36 Request for refill received from interface Last appointment: 08/25/2024 Next appointment: 02/23/2025 Pharmacy confirmed: [x] Yes [] No Normal [facility] NM PET/CT BRAIN PLAQUE IMAGI NGon 09-29-2024 [...] purposes. There are no significant incidental findings. Carton Gluing Machine Operator: TOSIN Transcribe Date/Time: Oct 03 2024 8:53A Dictated by : CARIE MELGAR MD This examination was interpreted and the report reviewed and electronically signed by: CARIE MELGAR MD on Oct 03 2024 8:56AM EST [id number] Normal [facility] CBC W/Diff, Automatedon 11-1 Absolute Lymph 1.36 X10 3/uL Normal 0.83-4.51 [facility] Comment on above: Performed By: #### L 500.4100, L500.4050, L100.0100 #### [facility] [address] [place], [address] Absolute Neut 4.0 X10 3/uL Normal 2.0-7.7 [facility] Comment on above: Performed By: #### L 500.4100, L500.4050, L100.0100 #### [facility] [address] [place], [address] Basophils/100 WBC (Bld) 0.5 % Normal 0-1 [facility] Comment on above: Performed By: #### L 500.4100, L500.4050, L100.0100 #### [facility] [address] [place], [address] Eosinophils/100 WBC (Bld) 2.0 % Normal 0-5 [facility] Comment on above: Performed By: #### L 500.4100, L500.4050, L100.0100 #### [facility] [address] [place], [address] Erythrocyte distribution width (RBC) [Ratio] 12.9 % Normal 11.6-14.6 [facility] Comment on above: Performed By: #### L 500.4100, L500.4050, L100.0100 #### [facility] [facility] [address] [place], [address] Hematocrit (Bld) [Volume fraction] 39.3 % Normal 37-47 [facility] Comment on above: Performed By: #### L 500.4100, L500.4050, L100.0100 #### [facility] [address] [place], [address] Hemoglobin (Bld) [Mass/Vol] 13.1 g/dL Normal 12.0-15.0 [facility] Comment on above: Performed By: #### L 500.4100, L500.4050, L100.0100 #### [facility] [address] [place], [address] IG% 0.700 Normal 0.0-0.9 [facility] Comment on above: Result Comment: IG% - Immature Granulocytes (promyelocytes, myelocytes and metamyelocytes) > 1% indicates that a LEFT SHIFT is Present. Performed By: #### L 500.4100, L500.4050, L100.0100 #### [facility] [address] [place], [address] Lymphocytes/100 WBC (Bld) 22.9 % Normal 19-41 [facility] Comment on above: Performed By: #### L 500.4100, L500.4050, L100.0100 #### [facility] [address] [place], [address] MCH (RBC) [Entitic mass] 31.2 pg Normal 27.0-32.0 [facility] Comment on above: Performed By: #### L 500.4100, L500.4050, L100.0100 #### [facility] [address] [place], [address] MCHC (RBC) [Mass/Vol] 33.3 g/dL Normal 32-36 [facility] Comment on above: Performed By: #### L 500.4100, L500.4050, L100.0100 #### [facility] [address] [place], [address] MCV (RBC) [Entitic vol] 93.6 fL Normal 81-99 [facility] Comment on above: Performed By: #### L 500.4100, L500.4050, L100.0100 #### [facility] [address], [address] Monocytes/100 WBC (Bld) 7.4 % Normal 0-10 [facility] Comment on above: Performed By: #### L 500.4100, L500.4050, L100.0100 #### [facility] [address] [place], [address] Neutrophils/100 WBC (Bld) 66.5 % Normal 47-70 [facility] Comment on above: Performed By: #### L 500.4100, L500.4050, L100.0100 #### [facility] [address] [place], [address] Nucleated RBC (Bld) [#/Vol] 0 10*3/uL Normal 0-5 [facility] Comment on above: Performed By: #### L 500.4100, L500.4050, L100.0100 #### [facility] [address] [place], [address] Platelet mean volume (Bld) [Entitic vol] 10.5 fL Normal 6.2-12.0 [facility] Comment on above: Performed By: #### L 500.4100, L500.4050, L100.0100 #### [facility] [address] [place], [address] Platelets (Bld) [#/Vol] 255 10*3/uL Normal 150-450 [facility] Comment on above: Performed By: #### L 500.4100, L500.4050, L100.0100 #### [facility] [address] [place], [address] RBC (Bld) [#/Vol] 4.20 10*6/uL Normal 4.2-5.4 [facility] Comment on above: Performed By: #### L 500.4100, L500.4050, L100.0100 #### [facility] [address] [place], [address] RDW SD 44.2 fl High 35.1-43.9 [facility] Comment on above: Performed By: #### L 500.4100, L500.4050, L100.0100 #### [facility] [address] [place], [address] WBC (Bld) [#/Vol] 6.0 10*3/uL Normal 4.4-11.0 [facility] Comment on above: Performed By: #### L 500.4100, L500.4050, L100.0100 #### [facility] [address] [place], [address] Comprehensive Metabolic Prof ilon 09-21-2024 Albumin [Mass/Vol] 3.7 g/dL Normal 3.2-5.0 [facility] Comment on above: Performed By: #### L 500.4100, L500.4050, L100.0100 #### [facility] [address] [place], [address] Albumin/Globulin [Mass ratio] 1.0 {ratio} Normal 0.9-2.4 [facility] Comment on above: Performed By: #### L 500.4100, L500.4050, L100.0100 #### [facility] [address] [place], [address] ALK P 86 U/L Normal 45-117 [facility] Comment on above: Performed By: #### L 500.4100, L500.4050, L100.0100 #### [facility] [address] [place], [address] ALT [Catalytic activity/Vol] 18 U/L Normal 13-56 [facility] Comment on above: Performed By: #### L 500.4100, L500.4050, L100.0100 #### [facility] [address] [place], [address] AST [Catalytic activity/Vol] 17 U/L Normal 15-37 [facility] Comment on above: Performed By: #### L 500.4100, L500.4050, L100.0100 #### [facility] [address] [place], [address] Bilirubin [Mass/Vol] 0.30 mg/dL Normal 0.20-1.00 [facility] Comment on above: Result Comment: For patients on eltrombopag therapy, use of Dimension [place] TBIL is not recommended. Performed By: #### L 500.4100, L500.4050, L100.0100 #### [facility] [address] [place], [address] BUN/CRE 14.4 RATIO Normal 10-20 [facility] Comment on above: Performed By: #### L 500.4100, L500.4050, L100.0100 #### [facility] [address] [place], [address] CA,Total 9.5 mg/dL Normal 8.5-10.1 [facility] Comment on above: Performed By: #### L 500.4100, L500.4050, L100.0100 #### [facility] [address] [place], [address] Chloride [Moles/Vol] 107 mmol/L Normal 98-107 [facility] Comment on above: Performed By: #### L 500.4100, L500.4050, L100.0100 #### [facility] [address] [place], [address] CO2 [Moles/Vol] 29.0 mmol/L Normal 21.0-32.0 [facility] Comment on above: Performed By: #### L 500.4100, L500.4050, L100.0100 #### [facility] [address] [place], [address] Creatinine [Mass/Vol] 1.04 mg/dL High 0.55-1.02 [facility] Comment on above: Result Comment: The validity of the calculated GFR GFRAA in patients over 70 years has not been determined. Clinical correlation is essential. Performed By: #### L 500.4100, L500.4050, L100.0100 #### [facility] [address] [place], [address] EST GFR - AA 66 mL/min Normal >60 [facility] Comment on above: Result Comment: Afri can [place] GFR Calc Performed By: #### L 500.4100, L500.4050, L100.0100 #### [facility] [address] [place], [address] GAP 4 Low 5-15 [facility] Comment on above: Performed By: #### L 500.4100, L500.4050, L100.0100 #### [facility] [address] [place], [address] GFR/1.73 sq M.predicted among non-blacks MDRD (S/P/Bld) [Vol rate/Area] 54 mL/min/{1.73_m2} Low >60 [facility] Comment on above: Result Comment: Non- GFR Calc Performed By: #### L 500.4100, L500.4050, L100.0100 #### [facility] [address] [place], [address] Globulin (S) [Mass/Vol] 3.6 g/dL Normal 2.2-4.2 [facility] Comment on above: Performed By: #### L 500.4100, L500.4050, L100.0100 #### [facility] [address] [place], [address] Glucose [Mass/Vol] 135 mg/dL High 74-106 [facility] Comment on above: Result Comment: Fast ing Glucose result greater than or equal to 126 mg/dL suggests DIABETES MELLITUS per A.D.A. criteria. Performed By: #### L 500.4100, L500.4050, L100.0100 #### [facility] [address] [place], [address] Potassium [Moles/Vol] 3.5 mmol/L Normal 3.5-5.1 [facility] Comment on above: Performed By: #### L 500.4100, L500.4050, L100.0100 #### [facility] [address] [place], [address] Sodium [Moles/Vol] 141 mmol/L Normal 136-145 [facility] Comment on above: Performed By: #### L 500.4100, L500.4050, L100.0100 #### [facility] [address] [place], [address] T PROT 7.3 g/dL Normal 6.4-8.2 [facility] Comment on above: Performed By: #### L 500.4100, L500.4050, L100.0100 #### [facility] [address] [place], [address] Urea nitrogen [Mass/Vol] 15 mg/dL Normal 7-18 [facility] Comment on above: Performed By: #### L 500.4100, L500.4050, L100.0100 #### [facility] [address] [place], [address] Lipid Profileon 09-21-2024 Cholesterol [Mass/Vol] 205 mg/dL High 200 [facility] Comment on above: Result Comment: <200 mg/dL Desirable 200-240 mg/dL Borderline >240 mg/dL High Risk Performed By: #### L 500.4100, L500.4050, L100.0100 #### [facility] [address] [place], [address] Cholesterol in HDL [Mass/Vol] 59 mg/dL Normal [facility] Comment on above: Result Comment: The drugs N-Acetylcysteine and Metamizole may falsely depress this assay. Reference Range HDL <40 mg/dL Low HDL Cholesterol HDL >or= 60 mg/dL High HDL Cholesterol Performed By: #### L 500.4100, L500.4050, L100.0100 #### [facility] [address] [place], [address] Cholesterol in LDL [Mass/Vol] 114 mg/dL Normal 0-130 [facility] Comment on above: Performed By: #### L 500.4100, L500.4050, L100.0100 #### [facility] [address] [place], [address] Cholesterol in VLDL [Mass/Vol] 32 mg/dL Normal 5-40 [facility] Comment on above: Performed By: #### L 500.4100, L500.4050, L100.0100 #### [facility] [address] [place], [place], [address] Triglyceride [Mass/Vol] 162 mg/dL Normal [facility] Comment on above: Result Comment: The drugs N-Acetylcysteine and Metamizole may falsely depress this assay. Serum Triglycerides Reference Interval Normal <150 mg/dL Borderline high 150 - 199 mg/dL High 200 - 499 mg/dL Very High > or = 500 mg/dL Performed By: #### L 500.4100, L500.4050, L100.0100 #### [facility] [address] [place], [place], [address] [facility] Telephone (MFI) CYNDEE VITAL ([id number]) 1945 F Date Time Provider Department 09/19/24 AMILCAR BRADFORD MD [facility] During your visit today, we recorded the following information about you: Abdon Moctezuma, (R) 09/19/2024 10:13 AM Signed CYNDEE VITAL [id number] DOS: 09/29/24 PET INJ: 1430 PET 4: 1530 APPT NOTES: DO NOT SUBMIT AUTH TO INSURANCE, BILLED TO [employer] ANU [id number] PET BRAIN AMYVID [employer]SM[employer] PET 2 ONLY NO CHARGE FOR DOSE Allergies As of Date: 09/19/2024 (No Known Allergies) Date Reviewed: 08/30/2024 Reviewed by: Panfilo Sy, PAULETTE - Fully Assessed Reason for Visit: Returning [...] Encounter Status:Closed by ABDON MOCTEZUMA on 09/19/24 [facility] 08-30-2024 ALLIED [facility]ALTH HNO ID: [id number] Author: LYDIA COSTA RT(Colette) Service: Radiology Author [...] PATIENT PRESENTS WITH AN IMPLANTABLE OR ATTACHED DIRECTOR MACHINE: No ALLERGIES: Reviewed and unchanged CONTRAST ALLERGY: [...] PERIPHERAL IV DATA: Inpatient - refer to [facility] documentation RADIOLOGY DEPARTMENT: CT; Exam(s) Completed: Abdomen/Pelvis SIGNATURE: RT Cheng(R) PATIENT NAME: Cyndee Vital DATE: August 30, 2024 TIME: 12:40 PM Normal [facility] CBC W Auto Differential pane l (Bld)on 08-30-2024 Basophils (Bld) [#/Vol] 0.03 10*3/uL Normal <0.11 [facility] Comment on above: Order Comment: Speci men Type: BLOOD SPECIMENOrdering Facility: [facility] Address: [address] [place] [address] Performed By: #### 5 7021-8 ####[facility]ORATORYCLIA [id number] [place] [address] [place] Basophils/100 WBC (Bld) 0.3 % Normal [facility] Comment on above: Order Comment: Zoilai men Type: BLOOD SPECIMENOrdering Facility: [facility] Address: [address] [place] [address] Performed By: #### 5 7021-8 ####[facility] LABORATORYCLIA [id number] [place] [address] [place] Differential cell count method Nom (Bld) Auto Normal [facility] Comment on above: Order Comment: Speci men Type: BLOOD SPECIMENOrdering Facility: [facility] Address: [address] [place] [address] Performed By: #### 5 7021-8 ####[facility]ORATORYCLIA [id number] [place] [address] [place] Eosinophils (Bld) [#/Vol] 0.07 10*3/uL Normal <0.46 [facility] Comment on above: Order Comment: Speci men Type: BLOOD SPECIMENOrdering Facility: [facility] Address: [address] [place] [address] Performed By: #### 5 7021-8 ####[facility]ORATORYCLIA [id number] [address] [place] Eosinophils/100 WBC (Bld) 0.8 % Normal [facility] Comment on above: Order Comment: Speci men Type: BLOOD SPECIMENOrdering Facility: [facility] Address: [address] [place] [address] Performed By: #### 5 7021-8 ####[facility]ORATORYCLIA [id number] [address] [place] Erythrocyte distribution width (RBC) [Ratio] 12.7 % Normal 11.5-15.0 [facility] Comment on above: Order Comment: Speci men Type: BLOOD SPECIMENOrdering Facility: [facility] Address: [address] [place] [address] Performed By: #### 5 7021-8 ####[facility]ORATORYCLIA [id number] [address] [place] Hematocrit (Bld) [Volume fraction] 40.3 % Normal 36.0-46.0 [facility] Comment on above: Order Comment: Speci men Type: BLOOD SPECIMENOrdering Facility: [facility] Address: [address] [place] [address] Performed By: #### 5 7021-8 ####[facility]ORATORYCLIA [id number] [address] [place] Hemoglobin (Bld) [Mass/Vol] 13.6 g/dL Normal 11.5-15.5 [facility] Comment on above: Order Comment: Speci men Type: BLOOD SPECIMENOrdering Facility: [facility] Address: [address] [place] [address] Performed By: #### 5 7021-8 ####[facility]ORATORYCLIA [id number] [place] [address] [place] Immature granulocytes (Bld) [#/Vol] 10*3/uL Normal <0.10 [facility] Comment on above: Order Comment: Speci men Type: BLOOD SPECIMENOrdering Facility: [facility] Address: [address] [place] [address] Performed By: #### 5 7021-8 ####[facility]ORATORYCLIA [id number] [address] Immature granulocytes/100 WBC (Bld) 0.2 % Normal [facility] Comment on above: Order Comment: Speci men Type: BLOOD SPECIMENOrdering Facility: [facility] Address: [address] [place] [address] Performed By: #### 5 7021-8 ####[facility] LABORATORYCLIA [id number] [place] [address] [place] Lymphocytes (Bld) [#/Vol] 1.87 10*3/uL Normal 1.00-4.00 [facility] Comment on above: Order Comment: Speci men Type: BLOOD SPECIMENOrdering Facility: [facility] Address: [address] [place] [address] Performed By: #### 5 7021-8 ####[facility] LABORATORYCLIA [id number] [address] [place] Lymphocytes/100 WBC (Bld) 21.5 % Normal [facility] Comment on above: Order Comment: Speci men Type: BLOOD SPECIMENOrdering Facility: [facility] Address: [address] [place] [address] Performed By: #### 5 7021-8 ####[facility] LABORATORYCLIA [id number] [place] [address] [place] MCH (RBC) [Entitic mass] 31.6 pg Normal 26.0-34.0 [facility] Comment on above: Order Comment: Speci men Type: BLOOD SPECIMENOrdering Facility: [facility] Address: [address] [place] [address] Performed By: #### 5 7021-8 ####[facility] LABORATORYCLIA [id number] [address] STATES [facility] MCHC (RBC) [Mass/Vol] 33.7 g/dL Normal 30.5-36.0 [facility] Comment on above: Order Comment: Speci men Type: BLOOD SPECIMENOrdering Facility: [facility] Address: [address] [place] [address] Performed By: #### 5 7021-8 ####[facility] LABORATORYCLIA [id number] [address] MCV (RBC) [Entitic vol] 93.7 fL Normal 80.0-100.0 [facility] Comment on above: Order Comment: Speci men Type: BLOOD SPECIMENOrdering Facility: [facility] Address: [address] [place] [address] Performed By: #### 5 7021-8 ####[facility] LABORATORYCLIA [id number] [address] [place] Monocytes (Bld) [#/Vol] 0.91 10*3/uL High <0.87 [facility] Comment on above: Order Comment: Speci men Type: BLOOD SPECIMENOrdering Facility: [facility] Address: [address] [place] [address] Performed By: #### 5 7021-8 ####[facility] LABORATORYCLIA [id number] [address] Monocytes/100 WBC (Bld) 10.5 % Normal [facility] Comment on above: Order Comment: Speci men Type: BLOOD SPECIMENOrdering Facility: [facility] Address: [address] [place] [address] Performed By: #### 5 7021-8 ####[facility] LABORATORYCLIA [id number] [address] [place] Neutrophils (Bld) [#/Vol] 5.79 10*3/uL Normal 1.45-7.50 [facility] Comment on above: Order Comment: Speci men Type: BLOOD SPECIMENOrdering Facility: [facility] Address: [facility] [place] [address] Performed By: #### 5 7021-8 ####[facility] LABORATORYCLIA [id number] [place] [address] [place] [facility] [place] Neutrophils/100 WBC (Bld) 66.7 % Normal [facility] Comment on above: Order Comment: Speci men Type: BLOOD SPECIMENOrdering Facility: [facility] Address: [address] [place] [address] Performed By: #### 5 7021-8 ####[facility] LABORATORYCLIA [id number] [place] [address] [place] Nucleated RBC (Bld) [#/Vol] 10*3/uL Normal <0.01 [facility] Comment on above: Order Comment: Speci men Type: BLOOD SPECIMENOrdering Facility: [facility] Address: [address] [place] [address] Performed By: #### 5 7021-8 ####[facility] LABORATORYCLIA [id number] [address] [place] Nucleated RBC/100 WBC (Bld) [Ratio] 0.0 /100 WBC Normal [facility] Comment on above: Order Comment: Speci men Type: BLOOD SPECIMENOrdering Facility: [facility] Address: [address] [place] [address] Performed By: #### 5 7021-8 ####[facility] LABORATORYCLIA [id number] [place] [address] [place] Platelet mean volume (Bld) [Entitic vol] 9.5 fL Normal 9.0-12.7 [facility] Comment on above: Order Comment: Speci men Type: BLOOD SPECIMENOrdering Facility: [facility] Address: [address] [place] [address] Performed By: #### 5 7021-8 ####DIG[facility] LABORATORYCLIA [id number] [place] [address] [place] Platelets (Bld) [#/Vol] 229 10*3/uL Normal 150-400 [facility] Comment on above: Order Comment: Speci men Type: BLOOD SPECIMENOrdering Facility: [facility] Address: [address] [place] [address] Performed By: #### 5 7021-8 ####[facility] LABORATORYCLIA [id number] [place] [address] [place] RBC (Bld) [#/Vol] 4.30 10*6/uL Normal 3.90-5.20 [facility] Comment on above: Order Comment: Speci men Type: BLOOD SPECIMENOrdering Facility: [facility] Address: [address] [place] [address] Performed By: #### 5 7021-8 ####[facility] LABORATORYCLIA [id number] [address] [place] WBC (Bld) [#/Vol] 8.69 10*3/uL Normal 3.70-11.00 [facility] Comment on above: Order Comment: Speci men Type: BLOOD SPECIMENOrdering Facility: [facility] Address: [address] [place] [address] Performed By: #### 5 7021-8 ####[facility] LABORATORYCLIA [id number] [address] ABD/PEL W IVCONon 10-22-[address] ABD/PEL W IVCON * * *Final Report* * * DATE OF EXAM: Aug 30 2024 12:40PM [facility] 0530 - CT ABD/PEL W IVCON / [...] acute process in the abdomen or pelvis [employer] Machine Operator: [facility] Transcribe Date/Time: Aug 30 2024 1:18P Dictated by : CATY ROJAS MD This examination was interpreted and the report reviewed and electronically signed by: CATY ROJAS MD on Aug 30 2024 1:25PM EST [id number] Normal [facility] Comprehensive metabolic 2000 panelon 08-30-2024 Albumin [Mass/Vol] 4.3 g/dL Normal 3.9-4.9 [facility] Comment on above: Order Comment: Speci men Type: BLOOD SPECIMENOrdering Facility: [facility] Address: [address] [place] [address] Performed By: #### 2 4323-8 ####[facility] LABORATORYCLIA [id number] [address] [place] [facility] ALP [Catalytic activity/Vol] 73 U/L Normal 34-123 [facility] Comment on above: Order Comment: Speci men Type: BLOOD SPECIMENOrdering Facility: [facility] Address: [address] [place] [address] Performed By: #### 2 4323-8 ####[facility] LABORATORYCLIA [id number] [address] [place] ALT [Catalytic activity/Vol] 13 U/L Normal 7-38 [facility] Comment on above: Order Comment: Speci men Type: BLOOD SPECIMENOrdering Facility: [facility] Address: [facility] [place] [place] [address] Performed By: #### 2 4323-8 ####[facility] LABORATORYCLIA [id number] [place] [address] [place] Anion gap [Moles/Vol] 10 mmol/L Normal 8-15 [facility] Comment on above: Order Comment: Speci men Type: BLOOD SPECIMENOrdering Facility: [facility] Address: [address] [place] [address] Performed By: #### 2 4323-8 ####[facility] LABORATORYCLIA [id number] [place] [address] [place] AST [Catalytic activity/Vol] 19 U/L Normal 13-35 [facility] Comment on above: Order Comment: Speci men Type: BLOOD SPECIMENOrdering Facility: [facility] Address: [address] [place] [address] Performed By: #### 2 4323-8 ####[facility] LABORATORYCLIA [id number] [place] [address] [place] Bilirubin [Mass/Vol] 0.8 mg/dL Normal 0.2-1.3 [facility] Comment on above: Order Comment: Speci men Type: BLOOD SPECIMENOrdering Facility: [facility] Address: [address] [place] [address] Performed By: #### 2 4323-8 ####[facility] LABORATORYCLIA [id number] [place] [address] [place] Calcium [Mass/Vol] 9.4 mg/dL Normal 8.5-10.2 [facility] Comment on above: Order Comment: Speci men Type: BLOOD SPECIMENOrdering Facility: [facility] Address: [address] [place] [address] Performed By: #### 2 4323-8 ####[facility] LABORATORYCLIA [id number] [place] [address] [place] Chloride [Moles/Vol] 103 mmol/L Normal 98-107 [facility] Comment on above: Order Comment: Speci men Type: BLOOD SPECIMENOrdering Facility: [facility] Address: [address] [place] [address] Performed By: #### 2 4323-8 ####[facility] LABORATORYCLIA [id number] [place] [address] [place] CO2 [Moles/Vol] 26 mmol/L Normal 22-30 [facility] [facility] Comment on above: Order Comment: Speci men Type: BLOOD SPECIMENOrdering Facility: [facility] Address: [address] [place] [address] Performed By: #### 2 4323-8 ####DIEGO LABORATORYCLIA [id number] [place] [address] [place] Creatinine [Mass/Vol] 1.13 mg/dL High 0.58-0.96 [facility] Comment on above: Order Comment: Speci men Type: BLOOD SPECIMENOrdering Facility: [facility] Address: [address] [place] [address] Performed By: #### 2 4323-8 ####DIEGO LABORATORYCLIA [id number] [place] [address] [place] Creatinine and Glomerular filtration rate.predicted panel (S/P/Bld) 50 mL/min/1.73m??? Low >=60 [facility] Comment on above: Order Comment: Speci men Type: BLOOD SPECIMENOrdering Facility: [facility] Address: [address] [place] [address] Result Comment: Tanja mated Glomerular Filtration Rate [...] actual GFR. Performed By: #### 2 4323-8 ####DIEGO LABORATORYCLIA [id number] [place] [address] [place] Glucose [Mass/Vol] 113 mg/dL High 74-99 [facility] Comment on above: Order Comment: Speci men Type: BLOOD SPECIMENOrdering Facility: [facility] Address: [address] [id number] Result Comment: The [place] Diabetes Association (ADA) provides guidance for cutoff [...] Standards of Medical Care in Diabetes 2016, [place] [employer] Association. Diabetes Care. 2016.39(Suppl 1). Performed By: #### 2 4323-8 ####DIEGO LABORATORYCLIA [id number] [place] [address] [place] Potassium [Moles/Vol] 4.4 mmol/L Normal 3.7-5.1 [facility] Comment on above: Order Comment: Jessica [facility] Type: BLOOD SPECIMENOrdering Facility: [facility] Address: [address] [place] [address] Performed By: #### 2 4323-8 ####DIEGO LABORATORYCLIA [id number] [place] [address] [place] Protein [Mass/Vol] 7.3 g/dL Normal 6.3-8.0 [facility] Comment on above: Order Comment: Zoilai men Type: BLOOD SPECIMENOrdering Facility: [facility] Address: [address] [id number] Performed By: #### 2 4323-8 ####DIEGO LABORATORYCLIA [id number] [place] [address] [place] Sodium [Moles/Vol] 139 mmol/L Normal 136-144 [facility] Comment on above: Order Comment: Jessica men Type: BLOOD SPECIMENOrdering Facility: [facility] Address: [address] [phone] Performed By: #### 2 4323-8 ####PARMA LABORATORYCLIA [id number] [place] [address] [facility] Urea nitrogen [Mass/Vol] 14 mg/dL Normal - [facility] Comment on above: Order Comment: Speci men Type: BLOOD SPECIMENOrdering Facility: [facility] Address: [address] [place] [address] Performed By: #### 2 4323-8 ####PARMA LABORATORYCLIA [id number] [address] [place] [id number] [facility] ED NOTEon 08-30-2024 ED NOTE HNO ID: [id number] Author: NARESH GRAF RN Service: Nursing Author Type: Registered [...] with all personal belongings exiting the facility. Normal [facility] ED PROV NOTEon 08-30-2024 ED PROV NOTE HNO ID: [id number] Author: SHAKILA RUIZ MD Service: ? Author [...] Abnormal; Notable for the following components: Abs [place] 0.91 (*) <0.87 k/uL All other components [...] Record Review (more content not included)... Normal [facility] Office Visiton 08-25-2024 Follow-up visit [id number] Manas Vital 1945 F Date Provider Department Center 08/25/2024 [id number] CASTILLO [facility] None Family History Problem Relation Age of Onset Dementia Maternal Grandmother Family Status - Relation Status Age at Maternal Grandmother Level of Service:19900 [place] OFFICE/OUTPATIENT ESTABLISHED MOD [facility] 30 MIN Reason for Visit and Comments: Dementia [30] Normal [facility] Progress Noteon 08-25-2024 Progress Note Senior Services/Geriatrics Social History Present at visit: patient, son Hao Marital status: Children: 2 children (both local) Living arrangement: alone, own condo, moved here close to daughter in 2018 from [place] >>02/17/22 same >>02/26/23 same >>10/22/23 same >>02/25/24 [...] of education: some college 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 Activities: watches tv, spends time with cat >>02/17/22 just went on vacation, walks in [employer], plays cards, plays piano, visiting friends >>08/22/22 outside, TV, cat sits out with neighbor, mandaen, >>02/26/23 walks, visits with neighbors, mandaen, kids' sports games, just came back from vacation >>10/22/23 same >>02/25/24 visits with aide, getting to physical therapy, going on walks >>08/25/24 visits with aides, goes to [facility], goes to [facility] Exercise: walks around her house >>02/17/22 walking, weights >>08/22/22 walks around the condo or in her neighborhood >>02/26/23 walks >>10/22/23 walks >>02/25/24 walks, physical therapy >>08/25/24 walking, goint to [facility] Finances: meeting soon with Medicaid attorney at law Healthcare Power of Public Health Teacher: Yes, Daughter Elizabeth Financial Power of Public Health Teacher: Yes, Daughter Elizabeth Living Will: Yes Guardian:No [...] sees her sometimes >>02/25/24 has 24 hour care management coordinatorXochitl who is living with her, another aide [...] members. SW suggested that daughter check out www.[email or web address]. [employer] to check out any other products that [...] resources give (more content not included)... Normal [facility] Progress Note Review of Systems Constitutional: Positive [...] and hallucinations. The patient is nervous/anxious. Normal [facility] Progress Note [facility] - [address] [address] Dept: [phone] Dept Loc: [phone] Visit type: [facility] Follow Up Visit Reason for Visit: [...] Disease, hypertension, depression who presents to the [facility] for a follow-up visit. The patient [...] Subjectively, cognition stable. MOCA did decline to 15/. MIS 01/21 Zoloft increased to 100 mg daily to help with anxiety/skin picking. -October 2023: MOCA score declined to 11/. More forgetful and needing more cueing. Referred [...] care at home History obtained from caregiver(s): Sreekanth Betts -Overall she has been doing well. Still [...] well. Hasn't complained about sciatica. Appetite: Good. Lpn Medical Assistant cooks for her. She has gained weight. [...] sinusitis 02/26/2023 Al (more content not included)... [facility] 36on 07-22-2024 36 Ordering provider: Gunjan Castillo Date of last office visit: 02/25/24 Date of next office visit: 08/25/24 Updated/Validated preferred pharmacy: Yes [facility] - [place], [place] - [address] [phone] Patient instructed to contact the pharmacy prior [...] of last refill (see medication tab): 12/28/23 [facility] NM PET/CT BRAIN PLAQUE IMAGI on 04-26-2024 NM PET/CT BRAIN [facility] * * *Final Report* * * DATE OF EXAM: Apr 26 2024 3:31PM VERONIQUE 0104 - NM PET/CT BRAIN PLAQUE [...] purposes. There are no significant incidental findings. Carton Gluing Machine Operator: PSCB Transcribe Date/Time: May 04 2024 1:10P Dictated by : JOSUÉ MCCORMACK MD This examination was interpreted and the report reviewed and electronically signed by: JOSUÉ MCCORMACK MD on May 04 2024 1:14PM EST [id number] Normal [facility] 04-18-2024 [facility] Telephone (MFI) CYNDEE VITAL ([id number]) 1945 F Date Time Provider Department 04/18/24 AMILCAR BRADFORD MD [facility] During your visit today, we recorded the following information about you: Abdon Moctezuma RT(R) 04/18/2024 11:41 AM Signed CYNDEE VITAL [id number] DOS: 04/26/24 PET INJ: 1430 PET 2: 1530 APPT NOTES: DO NOT SUBMIT AUTH TO INSURANCE, BILLED TO [employer] AN[employer] [id number] PET BRAIN AMYVID [employer] TRANSMITTAL FORM [...] Status:Closed by ABDON MOCTEZUMA on 04/18/24 Normal [facility] MR Brain WO contraston 01-31 [facility] Absolute lymphocyte countOrd ered By: Emi Cook on 01-26-2024 Lymphocytes Auto (Unsp spec) [#/Vol] 1.56 10*3/uL 0.83-4.51 [facility] Automated lymphocyte count a s percentage of total leukocytesOrdered By: Emi Cook on 01-26-2024 Lymphocytes/100 WBC Auto (Unsp spec) 23.9 % 19-41 [facility] Basophil percentageOrdered B y: Emi Cook on 01-26-2024 Basophils/100 WBC (Bld) 0.8 % 0-1 [facility] Bilirubin [Mass/Vol] 0.50 mg/dL 0.20-1.00 [facility] Comment on above: For patients on eltr ombopag therapy, use of Dimension [place] TBIL is not recommended. Chloride [Moles/Vol] 105 mmol/L 98-107 [facility] Eosinophils/100 WBC (Bld) 2.8 % 0-5 [facility] Glucose [Mass/Vol] 99 mg/dL 74-106 [facility] Hemoglobin (Bld) [Mass/Vol] 12.8 g/dL 12.0-15.0 [facility] Monocytes/100 WBC (Bld) 11.5 % 0-10 [facility] Neutrophils (Bld) [#/Vol] 4.0 10*3/uL 2.0-7.7 [facility] Neutrophils/100 WBC (Bld) 60.7 % 47-70 [facility] Potassium [Moles/Vol] 4.2 mmol/L 3.5-5.1 [facility] Protein [Mass/Vol] 7.4 g/dL 6.4-8.2 [facility] Sodium [Moles/Vol] 140 mmol/L 136-145 [facility] WBC (Bld) [#/Vol] 6.5 10*3/uL 4.4-11.0 [facility] Culture, urineOrdered By: Do ra Cook on 01-26-2024 Bacteria identified Cx Nom (U) Culture exhibits no growth. [facility] Determination of erythrocyte mean corpuscular volume (MCV)Ordered By: Emi Cook on 01-26-2024 MCV (RBC) [Entitic vol] 94.1 fL 81-99 [facility] Erythrocyte distribution wid th ratioOrdered By: Emi Cook on 01-26-2024 Erythrocyte distribution width (RBC) [Ratio] 13.9 % 11.6-14.6 [facility] Erythrocyte distribution wid th standard deviationOrdered By: Emi Cook on 01-26-2024 Erythrocyte distribution width (RBC) [Entitic vol] 47.3 fL 35.1-43.9 [facility] Hematocrit Auto (Bld) [Volum e fraction]Ordered By: Emi Cook on 01-26-2024 Hematocrit (Bld) [Volume fraction] 39.9 % 37-47 [facility] Immature granulocytes/100 WB C Auto (Bld)Ordered By: Emi Cook on 01-26-2024 Immature granulocytes/100 WBC (Bld) 0.300 % 0.0-0.9 [facility] Comment on above: IG% - Immature Granu locytes (promyelocytes, myelocytes and metamyelocytes) > 1% indicates that a LEFT SHIFT is Present. Laboratory - Chemistry and C hemistry - challengeOrdered By: Emi Cook on 01-26-2024 Albumin/Globulin [Mass ratio] 0.9 {ratio} 0.9-2.4 [facility] ALP [Catalytic activity/Vol] 106 U/L 45-117 [facility] ALT [Catalytic activity/Vol] 24 U/L 13-56 [facility] CO2 [Moles/Vol] 29.0 mmol/L 21.0-32.0 [facility] Cobalamin (Vitamin B12) [Mass/Vol] 908 pg/mL 211-911 [facility] Globulin (S) [Mass/Vol] 3.8 g/dL 2.2-4.2 [facility] Urea nitrogen/Creatinine [Mass ratio] 13.4 mg/mg 10-20 [facility] Laboratory - Chemistry and C hemistry - challengeon 01-26-2024 Bilirubin Ql (U) Negative [facility] Glucose Ql (U) Negative [facility] Ketones Ql (U) Negative [facility] pH (U) 6.5 [pH] [facility] Specific gravity (U) [Rel density] 1.015 [facility] Urobilinogen (U) [Mass/Vol] 0.0075983 mg/dL [facility] Laboratory - Hematology and Cell countsOrdered By: Emi Cook on 01-26-2024 MCH (RBC) [Entitic mass] 30.2 pg 27.0-32.0 [facility] MCHC (RBC) [Mass/Vol] 32.1 g/dL 32-36 [facility] Nucleated RBC/100 WBC (Bld) [Ratio] 0 % 0-5 [facility] Platelet mean volume (Bld) [Entitic vol] 9.5 fL 6.2-12.0 [facility] Platelets (Bld) [#/Vol] 302 10*3/uL 150-450 [facility] Laboratory - Hematology and Cell countson 01-26-2024 Hemoglobin Ql (U) Hemolyzed [facility] Laboratory - Specimen inform ationon 01-26-2024 Clarity (U) Clear [facility] Color (U) YELLOW [facility] Laboratory - Urinalysison Nitrite Ql (U) Negative [facility] Protein Ql (U) Negative [facility] No Panel InformationOrdered By: Emi Cook on 01-26-2024 Estimated GFR (MDRD) Amer 72 mL/min >60 [facility] Comment on above: GFR Calc Estimated GFR (MDRD) Non-Af Amer 59 mL/min >60 [facility] Comment on above: Non- GFR Calc No Panel Informationon 01-25 Urine Leukocytes Negatve [facility] Urine Non-Hemolyzed Blood Trace [facility] RBC Auto (Bld) [#/Vol]Ordere d By: Emi Cook on 01-26-2024 RBC (Bld) [#/Vol] 4.24 10*6/uL 4.2-5.4 [facility] Serum or plasma calcitriol m easurement (mass/volume)Ordered By: Emi Cook on 01-26-2024 1,25-dihydroxyvitamin D3 [Mass/Vol] 64.8 pg/mL 24.8-81.5 [facility] Comment on above: Performed at: [address] [id number] Director: Amirah Menard MD, Phone: [phone] Serum or plasma calcium yahaira urement (mass/volume)Ordered By: Emi Cook on 01-26-2024 Calcium [Mass/Vol] 9.2 mg/dL 8.5-10.1 [facility] Serum or plasma creatinine m easurement (mass/volume)Ordered By: Emi Cook on 01-26-2024 Creatinine [Mass/Vol] 0.97 mg/dL 0.55-1.02 [facility] Comment on above: The validity of the calculated GFR & GFRAA in patients over 70 years has not been determined. Clinical correlation is essential. Serum or plasma thyroid stim ulating hormone (TSH) measurement (units/volume)Ordered By: Emi Cook on 01-26-2024 TSH Qn 2.75 uIU/mL 0.358-3.74 [facility] Serum or plasma urea nitroge n measurement (mass/volume)Ordered By: Emi Cook on 01-26-2024 Urea nitrogen [Mass/Vol] 13 mg/dL 7-18 [facility] Thin prep Papanicolaou smear with manual screeningOrdered By: Emi Cook on 01-26-2024 Thin prep Papanicolaou smear with manual screening 3.6 g/dL 3.2-5.0 [facility] Thin prep Papanicolaou smear with manual screening 19 U/L 15-37 [facility] Thin prep Papanicolaou smear with manual screening 6 5-15 [facility] ALLIED HEALTHon 01-13-2024 ALLIED HEALTH HNO ID: [id number] Author: ESPERANZA KAPADIA RT(R) Service: Radiology Author Type: Technologist Type: [...] PATIENT PRESENTS WITH AN IMPLANTABLE OR ATTACHED DIRECTOR MACHINE: No RADIOLOGY DEPARTMENT: CT; Exam(s) Completed: Brain and Spine PERIPHERAL IV DATA: Not applicable SIGNED BY: RT Traci(R) January 13, 2024 12:20 PM Normal [facility] Basic metabolic 2000 panelon 01-13-2024 Anion gap [Moles/Vol] 11 mmol/L Normal 9-18 [facility] Comment on above: Order Comment: Speci men Type: BLOOD SPECIMENOrdering Facility: [facility] Address: [address] [place] [address] Performed By: #### 2 4321-2 ####PARMA LABORATORYCLIA [id number] [place] [address] [place] Calcium [Mass/Vol] 9.3 mg/dL Normal 8.5-10.2 [facility] Comment on above: Order Comment: Speci men Type: BLOOD SPECIMENOrdering Facility: [facility] Address: [address] [place] [address] Performed By: #### 2 4321-2 ####DIEGO LABORATORYCLIA [id number] [place] [address] [place] Chloride [Moles/Vol] 96 mmol/L Low 97-105 [facility] Comment on above: Order Comment: Speci men Type: BLOOD SPECIMENOrdering Facility: [facility] Address: [address] [place] [address] Performed By: #### 2 4321-2 ####DIEGO LABORATORYCLIA [id number] [place] [address] [place] CO2 [Moles/Vol] 27 mmol/L Normal 22-30 [facility] Comment on above: Order Comment: Speci men Type: BLOOD SPECIMENOrdering Facility: [facility] Address: [address] [place] [address] Performed By: #### 2 4321-2 ####DIEGO LABORATORYCLIA [id number] [place] [address] [place] Creatinine [Mass/Vol] 0.85 mg/dL Normal 0.58-0.96 [facility] Comment on above: Order Comment: Speci men Type: BLOOD SPECIMENOrdering Facility: [facility] Address: [address] [place] [address] Performed By: #### 2 4321-2 ####DIEGO LABORATORYCLIA [id number] [address] Creatinine and Glomerular filtration rate.predicted panel (S/P/Bld) 71 mL/min/1.73m??? Normal >=60 [facility] Comment on above: Order Comment: Speci men Type: BLOOD SPECIMENOrdering Facility: [facility] Address: [address] [place] [address] Result Comment: Tanja mated Glomerular Filtration Rate [...] Performed By: #### 2 4321-2 ####DIEGO LABORATORYCLIA [id number] [place] [address] [place] Glucose [Mass/Vol] 108 mg/dL High 74-99 [facility] Comment on above: Order Comment: Jessica shearer Type: BLOOD SPECIMENOrdering Facility: [facility] Address: [address] [place] [address] Result Comment: The [place] Diabetes Association (ADA) provides guidance for cutoff [...] Standards of Medical Care in Diabetes 2016, [place] [employer] Association. Diabetes Care. 2016.39(Suppl 1). Performed By: #### 2 4321-2 ####PARMA LABORATORYCLIA [id number] [place] [address] [place] Potassium [Moles/Vol] 3.7 mmol/L Normal 3.7-5.1 [facility] Comment on above: Order Comment: Jessica shearer Type: BLOOD SPECIMENOrdering Facility: [facility] Address: [address] [place] [address] Performed By: #### 2 4321-2 ####PARMA LABORATORYCLIA [id number] [place] [id number] [place] Sodium [Moles/Vol] 134 mmol/L Low 136-144 [facility] Comment on above: Order Comment: Jessica shearer Type: BLOOD SPECIMENOrdering Facility: [facility] Address: [address] [id number] Performed By: #### 2 4321-2 ####DIEGO LABORATORYCLIA [id number] [address] STATES [facility] Urea nitrogen [Mass/Vol] 19 mg/dL Normal 7-21 [facility] Comment on above: Order Comment: Speci men Type: BLOOD SPECIMENOrdering Facility: [facility] Address: [address] [place] [address] Performed By: #### 2 4321-2 ####DIEGO LABORATORYCLIA [id number] [address] CBC panel Auto (Bld)on 01-12 Erythrocyte distribution width (RBC) [Ratio] 13.0 % Normal 11.5-15.0 [facility] Comment on above: Order Comment: Speci men Type: BLOOD SPECIMENOrdering Facility: [facility] Address: [address] [place] [address] Performed By: #### 5 8410-2 ####DIEGO LABORATORYCLIA [id number] [address] Hematocrit (Bld) [Volume fraction] 38.4 % Normal 36.0-46.0 [facility] Comment on above: Order Comment: Speci men Type: BLOOD SPECIMENOrdering Facility: [facility] Address: [address] [place] [address] Performed By: #### 5 8410-2 ####DIEOG LABORATORYCLIA [id number] [address] Hemoglobin (Bld) [Mass/Vol] 13.6 g/dL Normal 11.5-15.5 [facility] Comment on above: Order Comment: Speci men Type: BLOOD SPECIMENOrdering Facility: [facility] Address: [address] [place] [address] Performed By: #### 5 8410-2 ####DIEGO LABORATORYCLIA [id number] [address] MCH (RBC) [Entitic mass] 31.6 pg Normal 26.0-34.0 [facility] Comment on above: Order Comment: Speci men Type: BLOOD SPECIMENOrdering Facility: [facility] Address: [address] [place] [address] Performed By: #### 5 8410-2 ####DIEGO LABORATORYCLIA [id number] [address] [place] MCHC (RBC) [Mass/Vol] 35.4 g/dL Normal 30.5-36.0 [facility] Comment on above: Order Comment: Speci men Type: BLOOD SPECIMENOrdering Facility: [facility] Address: [address] [place] [address] Performed By: #### 5 8410-2 ####DIEGO LABORATORYCLIA [id number] [place] [address] [place] MCV (RBC) [Entitic vol] 89.1 fL Normal 80.0-100.0 [facility] Comment on above: Order Comment: Speci men Type: BLOOD SPECIMENOrdering Facility: [facility] Address: [address] [place] [address] Performed By: #### 5 8410-2 ####DIEGO LABORATORYCLIA [id number] [place] [address] [place] Nucleated RBC (Bld) [#/Vol] 10*3/uL Normal <0.01 [facility] Comment on above: Order Comment: Speci men Type: BLOOD SPECIMENOrdering Facility: [facility] Address: [address] [place] [address] Performed By: #### 5 8410-2 ####DIEGO LABORATORYCLIA [id number] [place] [address] [place] Platelet mean volume (Bld) [Entitic vol] 9.2 fL Normal 9.0-12.7 [facility] Comment on above: Order Comment: Speci men Type: BLOOD SPECIMENOrdering Facility: [facility] Address: [address] [place] [address] Performed By: #### 5 8410-2 ####DIEGO LABORATORYCLIA [id number] [address] OF [place] Platelets (Bld) [#/Vol] 322 10*3/uL Normal 150-400 [facility] Comment on above: Order Comment: Speci men Type: BLOOD SPECIMENOrdering Facility: [facility] Address: [address] [id number] Performed By: #### 5 8410-2 ####DIEGO LABORATORYCLIA [id number] [address] RBC (Bld) [#/Vol] 4.31 10*6/uL Normal 3.90-5.20 [facility] Comment on above: Order Comment: Speci men Type: BLOOD SPECIMENOrdering Facility: [facility] Address: [address] [place] [address] Performed By: #### 5 8410-2 ####DIEGO LABORATORYCLIA [id number] [place] [id number] [facility] WBC (Bld) [#/Vol] 13.59 10*3/uL High 3.70-11.00 [facility] Comment on above: Order Comment: Speci men Type: BLOOD SPECIMENOrdering Facility: [facility] Address: [address] [place] [address] Performed By: #### 5 8410-2 ####DIEGO LABORATORYCLIA [id number] [address] BRAIN WO IVCONon 01-13-[address] BRAIN WO IVCON * * *Final Report* * * DATE OF EXAM: Jan 13 2024 12:20PM [facility] - CT BRAIN WO IVCON / [...] C5-C6 foraminal stenosis. No significant canal stenosis. Manager Law (topogram) images: No significant findings. IMPRESSION: No CT evidence of acute intracranial abnormality. 5 cm LEFT parietal scalp hematoma without underlying calvarial fracture. No evidence of acute cervical spine fracture. 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 Carton Gluing Machine Operator: PSCB Transcribe Date/Time: Jan 13 2024 12:40P Dictated by : ADDISON GUTIERREZ DO This examination was interpreted and the report reviewed and electronically signed by: ADDISON GUTIERREZ DO on Jan 13 2024 1:08PM EST [id number] [facility] CT CERVICAL SPINE WO IVCONon 01-13-2024 CT CERVICAL SPINE WO IVCON * * *Final Report* * * DATE OF EXAM: Jan 13 2024 12:20PM [facility] 0505 - CT CERVICAL SPINE WO IVCON [...] C5-C6 foraminal stenosis. No significant canal stenosis. Manager Law (topogram) images: No significant findings. IMPRESSION: No CT evidence of acute intracranial abnormality. 5 cm LEFT parietal scalp hematoma without underlying calvarial fracture. No evidence of acute cervical spine fracture. 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 [employer] Gl[employer] Machine Operator: TOSIN Transcribe Date/Time: Jan 13 2024 12:40P Dictated by : ADDISON GUTIERREZ DO This examination was interpreted and the report reviewed and electronically signed by: ADDISON GUTIERREZ DO on Jan 13 2024 1:08PM EST [id number] [facility] ED NOTEon 01-13-2024 ED NOTE HNO ID: [id number] Author: BETTY GAFFNEY RN Service: Nursing Author [...] off ED in no distress, with son. [facility] ED NOTE HNO ID: [id number] Author: BETTY GAFFNEY RN Service: Nursing Author Type: Registered Nurse Type: ED Notes Filed: 01/13/2024 12:26 Note Text: Pt back to Ed from [facility] ED NOTE HNO ID: [id number] Author: BETTY GAFFNEY RN Service: Nursing Author Type: Registered Nurse Type: ED Notes Filed: 01/13/2024 11:55 Note Text: Pt to CT with tech [facility] ED NOTE HNO ID: [id number] Author: SUJATHA MCKEE RN Service: Nursing Author Type: Registered Nurse Type: ED Notes Filed: 01/13/2024 11:20 Note Text: Patient has been taking flexeril 3x daily and has been unsteady. She fell off the toilet this morning, large hematoma on back of head. No thinners, no LOC per her daughter who witnessed the fall. Normal [facility] ED PROV NOTEon 01-13-2024 ED PROV NOTE HNO ID: [id number] Author: SHAKILA WARE DO Service: Emergency Medicine [...] with grade 1 C6 on C7 spondylolisthesis. [employer] Gl[employer] Machine Operator: PSCB Transcribe Date/Time: Jan 13 2024 12:40P [...] with grade 1 C6 on C7 spondylolisthesis. [employer] Machine Operator: TOSIN Transcribe Date/Time: Jan 13 2024 12:40P Dictated by : ADDISON GUTIERREZ DO This examination was interpreted and the report reviewed and electronically signed by: ADDISON GUTIERREZ DO on Jan 13 2024 1:08PM EST Meds Given During Visit ED Me (more content not included)... Normal [facility] Urinalysis complete panel (U )on 01-13-2024 Bacteria LM.HPF (Urine sed) [#/Area] Few Abnormal None Seen [facility] Comment on above: Order Comment: Speci men Type: URINE SPECIMENOrdering Facility: [facility] Address: [address] [place] [address] Performed By: #### 2 4356-8 ####[facility] LABORATORYCLIA [id number] [place] [address] [place] Bilirubin Ql (U) Negative Normal Negative [facility] Comment on above: Order Comment: Speci men Type: URINE SPECIMENOrdering Facility: [facility] Address: [address] [place] [address] Performed By: #### 2 4356-8 ####[facility] LABORATORYCLIA [id number] [address] CALCIUM OXALATE CRYSTALS (UA) Moderate Abnormal None Seen [facility] Comment on above: Order Comment: Speci men Type: URINE SPECIMENOrdering Facility: [facility] Address: [address] [place] [address] Performed By: #### 2 4356-8 ####[facility] LABORATORYCLIA [id number] [address] [place] Clarity (Unsp spec) Clear Normal Clear [facility] Comment on above: Order Comment: Speci men Type: URINE SPECIMENOrdering Facility: [facility] Address: [address] [place] [address] Performed By: #### 2 4356-8 ####[facility] LABORATORYCLIA [id number] [address] [place] Color (U) Yellow Normal Yellow [facility] Comment on above: Order Comment: Speci men Type: URINE SPECIMENOrdering Facility: [facility] Address: [address] [place] [address] Performed By: #### 2 4356-8 ####[facility] LABORATORYCLIA [id number] [address] Epithelial cells LM.HPF (Urine sed) [#/Area] Few Normal [facility] Comment on above: Order Comment: Speci men Type: URINE SPECIMENOrdering Facility: [facility] Address: [address] [place] [address] Performed By: #### 2 4356-8 ####[facility] LABORATORYCLIA [id number] [address] [place] Glucose Test strip (U) [Mass/Vol] Negative Normal Negative [facility] Comment on above: Order Comment: Speci men Type: URINE SPECIMENOrdering Facility: [facility] Address: [address] [place] [address] Performed By: #### 2 4356-8 ####[facility] LABORATORYCLIA [id number] [address] [place] Hemoglobin Ql (U) Trace Abnormal Negative [facility] Comment on above: Order Comment: Speci men Type: URINE SPECIMENOrdering Facility: [facility] Address: [address] [place] [address] Performed By: #### 2 4356-8 ####[facility] LABORATORYCLIA [id number] [address] Ketones Ql (U) Negative Normal Negative [facility] Comment on above: Order Comment: Speci men Type: URINE SPECIMENOrdering Facility: [facility] Address: [address] [place] [address] Performed By: #### 2 4356-8 ####[facility] LABORATORYCLIA [id number] [address] [place] Leukocyte esterase Test strip Ql (U) Negative Normal Negative [facility] Comment on above: Order Comment: Speci men Type: URINE SPECIMENOrdering Facility: [facility] Address: [address] [place] [address] Performed By: #### 2 4356-8 ####[facility] LABORATORYCLIA [id number] [place] [address] [place] Nitrite Ql (U) Negative Normal Negative [facility] Comment on above: Order Comment: Speci men Type: URINE SPECIMENOrdering Facility: [facility] Address: [address] [place] [address] Performed By: #### 2 4356-8 ####[facility] LABORATORYCLIA [id number] [place] [address] [place] pH (U) 6.0 [pH] Normal 5.0-8.0 [facility] Comment on above: Order Comment: Speci men Type: URINE SPECIMENOrdering Facility: [facility] Address: [address] [place] [address] Performed By: #### 2 4356-8 ####[facility] LABORATORYCLIA [id number] [place] [address] [place] Protein (U) [Mass/Vol] Negative Normal Negative [facility] Comment on above: Order Comment: Speci men Type: URINE SPECIMENOrdering Facility: [facility] Address: [address] [place] [address] Performed By: #### 2 4356-8 ####[facility] LABORATORYCLIA [id number] [place] [address] [place] RBC LM.HPF (Urine sed) [#/Area] 0-3 /HPF Normal 0-3 /HPF [facility] Comment on above: Order Comment: Speci men Type: URINE SPECIMENOrdering Facility: [facility] Address: [address] [place] [address] Performed By: #### 2 4356-8 ####[facility] LABORATORYCLIA [id number] [place] [address] [place] Specific gravity (U) [Rel density] 1.020 Normal 1.005-1.030 [facility] Comment on above: Order Comment: Speci men Type: URINE SPECIMENOrdering Facility: [facility] Address: [address] [place] [address] Performed By: #### 2 4356-8 ####[facility] LABORATORYCLIA [id number] [address] Urobilinogen Ql (U) 0.2 EU/dL Normal 0.2-1.0 EU/dL [facility] Comment on above: Order Comment: Speci men Type: URINE SPECIMENOrdering Facility: [facility] Address: [address] [place] [address] Performed By: #### 2 4356-8 ####[facility] LABORATORYCLIA [id number] [address] WBC LM.HPF (Urine sed) [#/Area] 0-5 /HPF Normal 0-5 /HPF [facility] Comment on above: Order Comment: Speci men Type: URINE SPECIMENOrdering Facility: [facility] Address: [address] [place] [address] Performed By: #### 2 4356-8 ####[facility] LABORATORYCLIA [id number] [address] ALLIED HEALTHon 01-03-2024 ALLIED HEALTH HNO ID: [id number] Author: LETICIA HENDRIX RT(R) Service: Radiology Author Type: Technologist Type: [...] PATIENT PRESENTS WITH AN IMPLANTABLE OR ATTACHED DIRECTOR MACHINE: No ALLERGIES: Reviewed and unchanged CONTRAST ALLERGY: [...] PERIPHERAL IV DATA: Inpatient - refer to [facility] documentation RADIOLOGY DEPARTMENT: CT; Exam(s) Completed: Brain , CTA Abdomen Pelvis, and CTA Chest SIGNATURE: Leticia Hendrix RT(R) PATIENT NAME: Cyndee Vital DATE: January 03, 2024 TIME: 4:39 AM Normal [facility] CBC W Auto Differential pane l (Bld)on 01-03-2024 Basophils (Bld) [#/Vol] 10*3/uL Normal <0.11 [facility] Comment on above: Order Comment: Speci men Type: BLOOD SPECIMENOrdering Facility: [facility] Address: [address] [place] [address] Performed By: #### 5 7021-8 ####[facility] LABORATORYCLIA [id number] [address] STATES OF [facility] Basophils/100 WBC (Bld) 0.1 % Normal [facility] Comment on above: Order Comment: Speci men Type: BLOOD SPECIMENOrdering Facility: [facility] Address: [address] [place] [address] Performed By: #### 5 7021-8 ####[facility] LABORATORYCLIA [id number] [address] OF [facility] Differential cell count method Nom (Bld) Auto Normal [facility] Comment on above: Order Comment: Speci men Type: BLOOD SPECIMENOrdering Facility: [facility] Address: [address] [place] [address] Performed By: #### 5 7021-8 ####[facility] LABORATORYCLIA [id number] [place] [address] [place] Eosinophils (Bld) [#/Vol] 10*3/uL Normal <0.46 [facility] Comment on above: Order Comment: Speci men Type: BLOOD SPECIMENOrdering Facility: [facility] Address: [address] [place] [address] Performed By: #### 5 7021-8 ####[facility] LABORATORYCLIA [id number] [place] [address] [place] Eosinophils/100 WBC (Bld) 0.0 % Normal [facility] Comment on above: Order Comment: Speci men Type: BLOOD SPECIMENOrdering Facility: [facility] Address: [address] [place] [address] Performed By: #### 5 7021-8 ####[facility] LABORATORYCLIA [id number] [address] [place] Erythrocyte distribution width (RBC) [Ratio] 13.1 % Normal 11.5-15.0 [facility] Comment on above: Order Comment: Speci men Type: BLOOD SPECIMENOrdering Facility: [facility] Address: [address] [place] [address] Performed By: #### 5 7021-8 ####[facility] LABORATORYCLIA [id number] [address] [place] Hematocrit (Bld) [Volume fraction] 44.7 % Normal 36.0-46.0 [facility] Comment on above: Order Comment: Speci men Type: BLOOD SPECIMENOrdering Facility: [facility] Address: [address] [place] [address] Performed By: #### 5 7021-8 ####[facility] LABORATORYCLIA [id number] [place] [address] [place] Hemoglobin (Bld) [Mass/Vol] 15.3 g/dL Normal 11.5-15.5 [facility] Comment on above: Order Comment: Speci men Type: BLOOD SPECIMENOrdering Facility: [facility] Address: [address] [place] [address] Performed By: #### 5 7021-8 ####[facility] LABORATORYCLIA [id number] [address] Immature granulocytes (Bld) [#/Vol] 0.09 10*3/uL Normal <0.10 [facility] Comment on above: Order Comment: Speci men Type: BLOOD SPECIMENOrdering Facility: [facility] Address: [address] [place] [address] Performed By: #### 5 7021-8 ####[facility] LABORATORYCLIA [id number] [address] Immature granulocytes/100 WBC (Bld) 0.8 % Normal [facility] Comment on above: Order Comment: Speci men Type: BLOOD SPECIMENOrdering Facility: [facility] Address: [address] [place] [address] Performed By: #### 5 7021-8 ####[facility] LABORATORYCLIA [id number] [address] STATES [facility] Lymphocytes (Bld) [#/Vol] 1.54 10*3/uL Normal 1.00-4.00 [facility] Comment on above: Order Comment: Speci men Type: BLOOD SPECIMENOrdering Facility: [facility] Address: [address] [place] [address] Performed By: #### 5 7021-8 ####[facility] LABORATORYCLIA [id number] [address] Lymphocytes/100 WBC (Bld) 13.3 % Normal [facility] Comment on above: Order Comment: Speci men Type: BLOOD SPECIMENOrdering Facility: [facility] Address: [address] [place] [address] Performed By: #### 5 7021-8 ####[facility] LABORATORYCLIA [id number] [address] MCH (RBC) [Entitic mass] 31.4 pg Normal 26.0-34.0 [facility] Comment on above: Order Comment: Speci men Type: BLOOD SPECIMENOrdering Facility: [facility] Address: [address] [place] [address] Performed By: #### 5 7021-8 ####D[facility] LABORATORYCLIA [id number] [place] [address] [place] MCHC (RBC) [Mass/Vol] 34.2 g/dL Normal 30.5-36.0 [facility] Comment on above: Order Comment: Speci men Type: BLOOD SPECIMENOrdering Facility: [facility] Address: [address] [place] [address] Performed By: #### 5 7021-8 ####[facility] LABORATORYCLIA [id number] [place] [address] [place] MCV (RBC) [Entitic vol] 91.8 fL Normal 80.0-100.0 [facility] Comment on above: Order Comment: Speci men Type: BLOOD SPECIMENOrdering Facility: [facility] Address: [address] [place] [address] Performed By: #### 5 7021-8 ####[facility] LABORATORYCLIA [id number] [address] [place] Monocytes (Bld) [#/Vol] 0.47 10*3/uL Normal <0.87 [facility] Comment on above: Order Comment: Speci men Type: BLOOD SPECIMENOrdering Facility: [facility] Address: [address] [place] [address] Performed By: #### 5 7021-8 ####[facility] LABORATORYCLIA [id number] [address] Monocytes/100 WBC (Bld) 4.1 % Normal [facility] Comment on above: Order Comment: Speci men Type: BLOOD SPECIMENOrdering Facility: [facility] Address: [address] [place] [address] Performed By: #### 5 7021-8 ####[facility] LABORATORYCLIA [id number] [address] [place] Neutrophils (Bld) [#/Vol] 9.49 10*3/uL High 1.45-7.50 [facility] Comment on above: Order Comment: Speci men Type: BLOOD SPECIMENOrdering Facility: [facility] Address: [address] [place] [address] Performed By: #### 5 7021-8 ####[facility] LABORATORYCLIA [id number] [place] [address] [place] Neutrophils/100 WBC (Bld) 81.7 % Normal [facility] Comment on above: Order Comment: Speci men Type: BLOOD SPECIMENOrdering Facility: [facility] Address: [address] [place] [address] Performed By: #### 5 7021-8 ####[facility] LABORATORYCLIA [id number] [place] [address] [place] Nucleated RBC (Bld) [#/Vol] 10*3/uL Normal <0.01 [facility] Comment on above: Order Comment: Speci men Type: BLOOD SPECIMENOrdering Facility: [facility] Address: [address] [place] [address] Performed By: #### 5 7021-8 ####[facility] LABORATORYCLIA [id number] [place] [address] [place] Nucleated RBC/100 WBC (Bld) [Ratio] 0.0 /100 WBC Normal [facility] Comment on above: Order Comment: Speci men Type: BLOOD SPECIMENOrdering Facility: [facility] Address: [address] [place] [address] Performed By: #### 5 7021-8 ####D[facility] LABORATORYCLIA [id number] [place] [address] [place] Platelet mean volume (Bld) [Entitic vol] 9.9 fL Normal 9.0-12.7 [facility] Comment on above: Order Comment: Speci men Type: BLOOD SPECIMENOrdering Facility: [facility] Address: [address] [place] [address] Performed By: #### 5 7021-8 ####[facility] LABORATORYCLIA [id number] [place] [address] [place] Platelets (Bld) [#/Vol] 309 10*3/uL Normal 150-400 [facility] Comment on above: Order Comment: Speci men Type: BLOOD SPECIMENOrdering Facility: [facility] Address: [address] [place], [place] [address] Performed By: #### 5 7021-8 ####[facility] LABORATORYCLIA [id number] [address] RBC (Bld) [#/Vol] 4.87 10*6/uL Normal 3.90-5.20 [facility] Comment on above: Order Comment: Speci men Type: BLOOD SPECIMENOrdering Facility: [facility] Address: [address] [place] [address] Performed By: #### 5 7021-8 ####[facility] LABORATORYCLIA [id number] [address] WBC (Bld) [#/Vol] 11.60 10*3/uL High 3.70-11.00 [facility] Comment on above: Order Comment: Speci men Type: BLOOD SPECIMENOrdering Facility: [facility] Address: [address] [place] [address] Performed By: #### 5 7021-8 ####[facility] LABORATORYCLIA [id number] [address] CNDSon 01-03-2024 CNDS HNO ID: [id number] Author: ZAC HENAO MD Service: Hospital Medicine [...] Torrez MD Primary Care Provider: Emi Cook APRN.CNP My Medical Team Members: Treatment Team: Attending [...] to call for appointment?: Yes Emi Cook, [facility] [phone] [address] [phone] PCP Requested Referral Additional Provider to Provider Information: No notes on file Active Hospital Problems as of 01/03/2024 Noted - Resolved POA Hospital Back pain 01/03/2024 - Present Unknown Resolved Hospital Problems as of 01/03/2024 None Transitions of Care Critical Issues: HENDRIX MEDICATION CHANGES: none LABS AND PROCEDURES PENDING AT DISCHARGE: No pending results. FOLLOW-UP APPOINTMENTS ALREADY SCHEDULED WITH A [facility] PROVIDER: No future appointments. ALLERGIES No Known [...] Provider, RN, Patient I have performed the [id number]-[id number] and relevant services for a total of < 30 minutes. SIGNATURE: Zac Henao MD DATE: January 03, 2024 TIME: 10:20 AM Normal [facility] CRP SerPl-mCncon 01-03-2024 CRP [Mass/Vol] mg/L Normal <0.9 [facility] Comment on above: Order Comment: Speci men Type: BLOOD SPECIMENOrdering Facility: [facility] Address: [address] [place] [address] Performed By: #### 1 988-5, 2777-1, [id number], 39779-3 ####PARMA LABORATORYCLIA [id number] [address] [place] CT BRAIN WO IVCONon 01-03-20 CT BRAIN WO IVCON * * *Final Report* * * DATE OF EXAM: Jan 03 2024 4:59AM [facility] [place] CT BRAIN WO IVCON / [...] base and imaged soft tissues are unremarkable. Manager Law (topogram) images: No additional findings. IMPRESSION: No acute intracranial abnormality identified Mild chronic intracranial changes as described [employer] Gluing Machine Operator: TOSIN Transcribe Date/Time: Jan 03 2024 5:23A Dictated by : CHUY DAVIS MD This examination was interpreted and the report reviewed and electronically signed by: CHUY DAVIS MD on Jan 03 2024 5:26AM EST [id number] [facility] CTA ABD/PELV W IVCONon 01-03 CTA ABD/PELV W IVCON * * *Final Report* * * DATE OF EXAM: Jan 03 2024 5:34AM [facility] [place] 0466 - CTA ABD/PELV W IVCON / [...] Please consider direct visualization as necessary. Diverticulosis [employer] Machine Operator: TOSIN Transcribe Date/Time: Jan 03 2024 5:44A Dictated by : SATYA SINGH MD This examination was interpreted and the report reviewed and electronically signed by: SATYA SINGH MD on Jan 03 2024 5:52AM EST [id number] [facility] CTA CHEST (GATED) WO/W IVCON on 01-03-2024 CTA CHEST (GATED) WO/W IVCON * * *Final Report* * * DATE OF EXAM: Jan 03 2024 5:34AM [facility] [place] 0126 - CTA CHEST (GATED) WO/W IVCON [...] Please consider direct visualization as necessary. Diverticulosis [employer] Operator: [employer] Transcribe Date/Time: Jan 03 2024 5:44A Dictated by : SATYA SINGH MD This examination was interpreted and the report reviewed and electronically signed by: SATYA SINGH MD on Jan 03 2024 5:52AM EST [id number] Normal [facility] Comprehensive metabolic 2000 panelon 01-03-2024 Albumin [Mass/Vol] 4.5 g/dL Normal 3.9-4.9 [facility] Comment on above: Order Comment: Jessica shearer Type: BLOOD SPECIMEN [facility] Address: [address] [place] [address] Performed By: #### 3 040-3, 38396-1, 17359-4, 79682-1, [id number] #### [facility] CLIA [id number] [address] [place] [address] [place] ALP [Catalytic activity/Vol] 127 U/L High 34-123 [facility] Comment on above: Order Comment: Jessica shearer Type: BLOOD SPECIMEN [facility] Address: [address] [place] [address] Performed By: #### 3 040-3, 95094-4, 93325-4, 82894-6, [id number] #### [facility] CLIA [id number] [address] STATES [facility] ALT [Catalytic activity/Vol] 24 U/L Normal 7-38 [facility] Comment on above: Order Comment: Speci men Type: BLOOD SPECIMEN [facility] Address: [address] [place] [address] Performed By: #### 3 040-3, 16141-1, 84579-9, 92258-1, [id number] #### [facility] CLIA [id number] [address] [place] [address] [place] Anion gap [Moles/Vol] 14 mmol/L Normal 9-18 [facility] Comment on above: Order Comment: Speci men Type: BLOOD SPECIMEN [facility] Address: [address] [place] [address] Performed By: #### 3 040-3, 17460-6, 83851-9, 11799-4, [id number] #### [facility] CLIA [id number] [address] [place] AST [Catalytic activity/Vol] 21 U/L Normal 13-35 [facility] Comment on above: Order Comment: Speci men Type: BLOOD SPECIMEN [facility] Address: [facility] [place] [place] [address] Performed By: #### 3 040-3, 65861-2, 97596-1, 95315-3, [id number] #### [facility] CLIA [id number] [address] [place] [address] [place] Bilirubin [Mass/Vol] 0.4 mg/dL Normal 0.2-1.3 [facility] Comment on above: Order Comment: Speci men Type: BLOOD SPECIMEN [facility] Address: [address] [place] [address] Performed By: #### 3 040-3, 11697-1, 82541-7, 73273-4, [id number] #### [facility] CLIA [id number] [address] [place] [address] [place] Calcium [Mass/Vol] 9.4 mg/dL Normal 8.5-10.2 [facility] Comment on above: Order Comment: Speci men Type: BLOOD SPECIMEN [facility] Address: [address] [place] [address] Performed By: #### 3 040-3, 40862-1, 19233-0, 68473-9, [id number] #### [facility] CLIA [id number] [address] [place] [address] [place] Chloride [Moles/Vol] 102 mmol/L Normal 97-105 [facility] Comment on above: Order Comment: Speci men Type: BLOOD SPECIMEN [facility] Address: [address] [place] [address] Performed By: #### 3 040-3, 25248-7, 87903-4, 76341-1, [id number] #### [facility] CLIA [id number] [address] [place] [address] [place] CO2 [Moles/Vol] 25 mmol/L Normal 22-30 [facility] Comment on above: Order Comment: Speci men Type: BLOOD SPECIMEN [facility] Address: [address] [place] [address] Performed By: #### 3 040-3, 12301-1, 11450-0, 43368-2, [id number] #### [facility] CLIA [id number] [address] [place] [address] [place] Creatinine [Mass/Vol] 0.81 mg/dL Normal 0.58-0.96 [facility] Comment on above: Order Comment: Speci men Type: BLOOD SPECIMEN [facility] Address: [address] [place] [address] Performed By: #### 3 040-3, 44883-3, 13419-4, 66185-5, [id number] #### [facility] CLIA [id number] [address] [place] [address] [place] Creatinine and Glomerular filtration rate.predicted panel (S/P/Bld) 75 mL/min/1.73m??? Normal >=60 [facility] Comment on above: Order Comment: Jessica shearer Type: BLOOD SPECIMEN [facility] Address: [address] [place] [address] Result Comment: Tanja mated Glomerular Filtration Rate [...] actual GFR. Performed By: #### 3 040-3, 25834-2, 79511-3, 15760-0, [id number] #### [facility] CLIA [id number] [address] [place] [address] [place] Glucose [Mass/Vol] 158 mg/dL High 74-99 [facility] Comment on above: Order Comment: Jessica shearer Type: BLOOD SPECIMEN [facility] Address: [address] [place] [address] Result Comment: The [place] [employer] (ADA) provides guidance for cutoff [...] Standards of Medical Care in Diabetes 2016, [place] [employer]. Diabetes Care. 2016.39(Suppl 1). Performed By: #### 3 040-3, 87758-6, 04352-3, 29379-7, [id number] #### [facility] CLIA [id number] [address] [place] [address] [place] Potassium [Moles/Vol] 3.7 mmol/L Normal 3.7-5.1 [facility] Comment on above: Order Comment: Speci men Type: BLOOD SPECIMEN [facility] Facility[facility] Address: [address] [place] [address] Performed By: #### 3 040-3, 68548-5, 09848-7, 55189-8, [id number] #### [facility] CLIA [id number] [address] [place] [address] [place] Protein [Mass/Vol] 7.9 g/dL Normal 6.3-8.0 [facility] Comment on above: Order Comment: Speci men Type: BLOOD SPECIMEN [facility] Facility[facility] Address: [address] [place] [address] Performed By: #### 3 040-3, 87298-0, 62878-1, 83586-8, [id number] #### [facility] CLIA [id number] [address] STATES OF [facility] Sodium [Moles/Vol] 141 mmol/L Normal 136-144 [facility] Comment on above: Order Comment: Speci men Type: BLOOD SPECIMEN [facility] Address: [address] [place] [address] Performed By: #### 3 040-3, 04063-2, 37874-6, 27686-5, [id number] #### [facility] CLIA [id number] [address] [place] Urea nitrogen [Mass/Vol] 23 mg/dL High 7-21 [facility] Comment on above: Order Comment: Speci men Type: BLOOD SPECIMEN [facility] Address: [address] [place] [address] Performed By: #### 3 040-3, 02117-3, 94001-4, 33674-3, [id number] #### [facility] CLIA [id number] [address] [place] ECG COMPLETEon 01-03-2024 ECG COMPLETE Ventricular Rate : 5 1 BPM Atrial Rate : 51 BPM P-R Interval : 138 ms QRS Duration : 78 ms Q-T Interval : 432 ms QTC Calculation(Bazett) : 398 ms Calculated P [place] : 49 degrees Calculated R [place] : -9 degrees Calculated T [place] : 59 degrees SINUS BRADYCARDIA NONSPECIFIC ST ABNORMALITY ABNORMAL ECG no STEMI Confirmed by MD VUONG EDWARD.S ([id number]), website/blog editor CHUY INFANTE ([id number]) on 01/04/2024 7:14:53 AM NAME : CYNDEE VITAL PID : [id number] : 1945 Gender : Female Race : ORD : [id number] Procedure Date : Jan 03 2024 04:14:58 Edit Date : Jan 04 2024 07:14:56 Diagnosis: SINUS BRADYCARDIA NONSPECIFIC ST ABNORMALITY ABNORMAL ECG no STEMI Confirmed by MD VUONG EDWARD.S ([id number]), website/blog editor CHUY INFANTE ([id number]) on 01/04/2024 7:14:53 AM Test Reason : Chest Pain Location : 1 : ER 0203 Overread By : MD VUONG EDWARD.S Edited By : CHUY INFANTE Referred By : , Acquired by : [place] [id number], [facility] ED PROV NOTEon 01-03-2024 ED PROV NOTE HNO ID: [id number] Author: ELIEZER VUONG MD Service: Emergency Medicine [...] unspecified abdominal location COVID-19 test performed per [facility] Eads policy for suspected COVID community exposure. MDM [...] the following (more content not included)... Normal [facility] FLUABV+SARS-CoV-2+RSV Pnl Re sp ROSEMARY+probeon 01-03-2024 FLUABV+SARS-CoV-2+RSV Pnl Resp ROSEMARY+probe COVID 19 RESULT: Detected The method used is RT-PCR or an equivalent NAAT method. Reference Range(the expected result in uninfected individuals): Not detected INFLUENZA A PCR: Not detected INFLUENZA B PCR: Not detected RSV PCR: Not detected Abnormal [facility] Comment on above: Performed By: #### 9 5941-1 ####[facility] [id number] [place] [address] [place] HIGH SENSITIVITY TROPONIN T (INITIAL)on 01-03-2024 Troponin T.cardiac High sensitivity method [Mass/Vol] 6 ng/L Normal <12 [facility] Comment on above: Order Comment: Speci men Type: BLOOD SPECIMENOrdering Facility: [facility] Address: [address] [place] [address] Result Comment: When assessing risk for acute [...] day MACE. Performed By: #### 3 040-3, 01953-8, 34017-5, 38073-6, [id number] ####[facility] [id number] [place] [address] [place] HIGH SENSITIVITY TROPONIN T (SECOND)on 01-03-2024 Troponin T.cardiac High sensitivity method [Mass/Vol] 7 ng/L Normal <12 [facility] Comment on above: Order Comment: Jessica shearer Type: BLOOD SPECIMENOrdering Facility: [facility] Address: [address] [place] [address] Result Comment: When assessing risk for acute [...] MACE. Performed By: #### 1 988-5, 2777-1, [id number], ####[facility] [id number] [place] [address] [place] Lipase SerPl-cCncon 01-03-20 24 Lipase [Catalytic activity/Vol] 52 U/L Normal 16-61 [facility] Comment on above: Order Comment: Jessica shearer Type: BLOOD SPECIMENOrdering Facility: [facility] Address: [address] [place] [address] Performed By: #### 3 040-3, 16123-7, 85752-2, 67934-1, [id number] ####[facility] [id number] [place] [id number] [place] Magnesium SerPl-mCncon 01-03 Magnesium [Mass/Vol] 2.0 mg/dL Normal 1.7-2.3 [facility] Comment on above: Order Comment: Jessica shearer Type: BLOOD SPECIMENOrdering Facility: [facility] Address: [address] [place], [place] [address] Performed By: #### 1 988-5, 2777-1, [id number], 31328-0 ####[facility] [id number] [address] Magnesium [Mass/Vol] 2.2 mg/dL Normal 1.7-2.3 [facility] Comment on above: Order Comment: Jessica shearer Type: BLOOD SPECIMENOrdering Facility: [facility] Address: [address] [place] [address] Performed By: #### 3 040-3, 64445-9, 02319-1, 04816-7, [id number] ####[facility] [id number] [address] NT-proBNP [facility] 01-03 Natriuretic peptide.B prohormone N-Terminal [Mass/Vol] 407 pg/mL Normal <450 [facility] Comment on above: Order Comment: Jessica shearer Type: BLOOD SPECIMENOrdering Facility: [facility] Address: [address] [place] [address] Performed By: #### 3 040-3, 79829-1, 91042-6, 09087-7, [id number] ####[facility] [id number] [address] PT panel Coag (PPP)on 2023 INR Coag (PPP) [Relative time] 1.0 {INR} Normal 0.9-1.3 [facility] Comment on above: Order Comment: Jessica shearer Type: BLOOD SPECIMENOrdering Facility: [facility] Address: [address] [place] [address] Result Comment: Gege min K Antagonist (VKA) Therapeutic Range: INR 2 to 3 (Target INR of 2.5) Note: For patients treated with VKA drugs, such as warfarin, the [place] [employer] 2012 Guideline recommends [...] to 3.5 (target INR of 3). Mary LOUISE, et al. Chest 2012, 141:7S-47S Sunshine RA, et al. [facility] 2017, 70: 252-289 Performed By: #### 3 4528-0, 13728-7 ####[facility] [id number] [address] STATES OF [facility] PT Coag (PPP) [Time] 10.8 s Normal 9.7-13.0 [facility] Comment on above: Order Comment: Speci men Type: BLOOD SPECIMENOrdering Facility: [facility] Address: [address] [place] [address] Performed By: #### 3 4528-0, 98228-3 ####[facility] [id number] [address] OF [place] Phosphate SerPl-mCncon 01-03 Phosphate [Mass/Vol] 2.9 mg/dL Normal 2.7-4.8 [facility] Comment on above: Order Comment: Speci manfred Type: BLOOD SPECIMENOrdering Facility: [facility] Address: [address] [place] [address] Performed By: #### 1 988-5, 2777-1, [id number], 07285-0 ####[facility] [id number] [address] Urinalysis complete panel (U )on 01-03-2024 Bilirubin Ql (U) Negative Normal Negative [facility] Comment on above: Order Comment: Speci men Type: URINE SPECIMENOrdering Facility: [facility] Address: [address] [place] [address] Performed By: #### 2 4356-8 ####[facility] [id number] [address] OF [place] Clarity (Unsp spec) Clear Normal Clear [facility] Comment on above: Order Comment: Speci men Type: URINE SPECIMENOrdering Facility: [facility] Address: [address] [place] [address] Performed By: #### 2 4356-8 ####[facility] [id number] [place] [address] [place] Color (U) Yellow Normal Yellow [facility] Comment on above: Order Comment: Speci men Type: URINE SPECIMENOrdering Facility: [facility] Address: [address] [place] [address] Performed By: #### 2 4356-8 ####[facility] [id number] [place] [address] [place] [facility] [place] Glucose Test strip (U) [Mass/Vol] Trace Abnormal Negative [facility] Comment on above: Order Comment: Speci men Type: URINE SPECIMENOrdering Facility: [facility] Address: [address] [place] [address] Performed By: #### 2 4356-8 ####[facility] [id number] [place] [address] [place] Hemoglobin Ql (U) Trace Abnormal Negative [facility] Comment on above: Order Comment: Speci men Type: URINE SPECIMENOrdering Facility: [facility] Address: [address] [place] [address] Performed By: #### 2 4356-8 ####[facility] [id number] [place] [address] [place] Ketones Ql (U) Negative Normal Negative [facility] Comment on above: Order Comment: Speci men Type: URINE SPECIMENOrdering Facility: [facility] Address: [address] [place] [address] Performed By: #### 2 4356-8 ####[facility] [id number] [place] [id number] [place] Leukocyte esterase Test strip Ql (U) Negative Normal Negative [facility] Comment on above: Order Comment: Speci men Type: URINE SPECIMENOrdering Facility: [facility] Address: [address] [place] [address] Performed By: #### 2 4356-8 ####[facility] [id number] [place] [address] [place] Nitrite Ql (U) Negative Normal Negative [facility] Comment on above: Order Comment: Speci men Type: URINE SPECIMENOrdering Facility: [facility] Address: [address] [place] [address] Performed By: #### 2 4356-8 ####[facility] [id number] [place] [address] [place] pH (U) 7.0 [pH] Normal 5.0-8.0 [facility] Comment on above: Order Comment: Speci men Type: URINE SPECIMENOrdering Facility: [facility] Address: [address] [place] [address] Performed By: #### 2 4356-8 ####[facility] [id number] [address] [place] Protein (U) [Mass/Vol] Negative Normal Negative [facility] Comment on above: Order Comment: Speci men Type: URINE SPECIMENOrdering Facility: [facility] Address: [address] [place] [address] Performed By: #### 2 4356-8 ####[facility] [id number] [address] [place] RBC LM.HPF (Urine sed) [#/Area] 0-3 /HPF Normal 0-3 /HPF [facility] Comment on above: Order Comment: Speci men Type: URINE SPECIMENOrdering Facility: [facility] Address: [address] [place] [address] Performed By: #### 2 4356-8 ####[facility] [id number] [address] Specific gravity (U) [Rel density] 1.010 Normal 1.005-1.030 [facility] Comment on above: Order Comment: Speci men Type: URINE SPECIMENOrdering Facility: [facility] Address: [address] [place] [address] Performed By: #### 2 4356-8 ####[facility] [id number] [address] Urobilinogen Ql (U) 0.2 EU/dL Normal 0.2-1.0 EU/dL [facility] Comment on above: Order Comment: Speci men Type: URINE SPECIMENOrdering Facility: [facility] Address: [address] [place] [address] Performed By: #### 2 4356-8 ####[facility] [id number] [address] WBC LM.HPF (Urine sed) [#/Area] 0-5 /HPF Normal 0-5 /HPF [facility] Comment on above: Order Comment: Speci men Type: URINE SPECIMENOrdering Facility: [facility] Address: [address] [place] [address] Performed By: #### 2 4356-8 ####[facility] [id number] [address] [place] aPTT PPPon 01-03-2024 aPTT Coag (PPP) [Time] 21.9 s Low 23.0-32.4 [facility] Comment on above: Order Comment: Speci men Type: BLOOD SPECIMENOrdering Facility: [facility] Address: [address] [place] [address] Performed By: #### 3 4528-0, 28090-8 ####[facility] [id number] [address] [place] NM PET/CT BRAIN PLAQUE IMAGI NGon 09-24-2023 [facility] Patient Instructionson 04-13 Box Office Clerk Authentication Interface Message Text Sunscreen Recommendations: Recommend [...] Pure and Simple Zinc oxide Normal [employer] Progress Noteson 04-13-2023 Box Office Clerk Authentication Interface Message Text Vitals not obtained per provider's instructions. Patient was identified by name and date of . Alvaro Collazo Why are you seeing the director of food and nutrition services (doctor) today? mole What specific location on [...] Use? yes Tobacco Use? no Normal [employer] Box Office Clerk Authentication Interface Message Text ------- HISTORY OF [...] procedures, and medical decision making performed by mi, Celina Levy MD. Normal [facility] [employer] NM PET/CT BRAIN PLAQUE IMAGI NGon 02-19-2023 [facility] Absolute lymphocyte countOrd ered By: Emi Cook on 01-26-2023 Lymphocytes Auto (Unsp spec) [#/Vol] 1.61 10*3/uL 0.83-4.51 [facility] Basophil percentageOrdered B y: Emi Cook on 01-26-2023 Basophils/100 WBC (Bld) 0.6 % 0-1 [facility] Bilirubin [Mass/Vol] 0.50 mg/dL 0.20-1.00 [facility] Comment on above: For patients on eltr ombopag therapy, use of Dimension [place] TBIL is not recommended. Chloride [Moles/Vol] 112 mmol/L 98-107 [facility] Cholesterol [Mass/Vol] 144 mg/dL <200 [facility] Comment on above: <200 mg/dL Desirable 200-240 mg/dL Borderline >240 mg/dL High Risk Eosinophils/100 WBC (Bld) 3.0 % 0-5 [facility] Glucose [Mass/Vol] 107 mg/dL 74-106 [facility] Comment on above: Fasting Glucose resu lt from 100 to 125 mg/dL suggests IMPAIRED HOMEOSTASIS per A.D.A. criteria. Neutrophils (Bld) [#/Vol] 4.5 10*3/uL 2.0-7.7 [facility] Neutrophils/100 WBC (Bld) 63.8 % 47-70 [facility] Potassium [Moles/Vol] 3.6 mmol/L 3.5-5.1 [facility] Protein [Mass/Vol] 7.3 g/dL 6.4-8.2 [facility] Sodium [Moles/Vol] 145 mmol/L 136-145 [facility] Triglyceride [Mass/Vol] 221 mg/dL <199 [facility] Comment on above: The drugs N-Acetylcy steine and Metamizole may falsely depress this assay.Serum Triglycerides Reference Interval Normal <150 mg/dL Borderline high 150 - 199 mg/dL High 200 - 499 mg/dL Very High > or = 500 mg/dL WBC (Bld) [#/Vol] 7.0 10*3/uL 4.4-11.0 [facility] Blood erythrocytes count (nu mber/volume)Ordered By: Emi Cook on 01-26-2023 RBC (Bld) [#/Vol] 4.36 10*6/uL 4.2-5.4 [facility] Blood hemoglobin measurement (mass/volume)Ordered By: Emi Cook on 01-26-2023 Hemoglobin (Bld) [Mass/Vol] 13.4 g/dL 12.0-15.0 [facility] Blood lymphocytes/100 leukoc ytesOrdered By: Emi Cook on 01-26-2023 Lymphocytes/100 WBC (Bld) 23.0 % 19-41 [facility] Blood monocytes/100 leukocyt esOrdered By: Emi Cook on 01-26-2023 Monocytes/100 WBC (Bld) 9.3 % 0-10 [facility] Blood platelet mean volumeOr dered By: Emi Cook on 01-26-2023 Platelet mean volume (Bld) [Entitic vol] 10.8 fL 6.2-12.0 [facility] Determination of erythrocyte mean corpuscular volume (MCV)Ordered By: Emi Cook on 01-26-2023 MCV (RBC) [Entitic vol] 93.6 fL 81-99 [facility] Hematocrit Auto (Bld) [Volum e fraction]Ordered By: Emi Cook on 01-26-2023 Hematocrit (Bld) [Volume fraction] 40.8 % 37-47 [facility] Laboratory - Chemistry and C hemistry - challengeOrdered By: Emi Cook on 01-26-2023 ALP [Catalytic activity/Vol] 102 U/L 45-117 [facility] ALT [Catalytic activity/Vol] 23 U/L 13-56 [facility] CO2 [Moles/Vol] 27.0 mmol/L 21.0-32.0 [facility] Globulin (S) [Mass/Vol] 3.6 g/dL 2.2-4.2 [facility] Urea nitrogen/Creatinine [Mass ratio] 22.0 mg/mg 10-20 [facility] Laboratory - Hematology and Cell countsOrdered By: Emi Cook on 01-26-2023 Erythrocyte distribution width (RBC) [Entitic vol] 46.9 fL 35.1-43.9 [facility] Erythrocyte distribution width (RBC) [Ratio] 13.7 % 11.6-14.6 [facility] Immature granulocytes/100 WBC (Bld) 0.300 % 0.0-0.9 [facility] Comment on above: IG% - Immature Granu locytes (promyelocytes, myelocytes and metamyelocytes) > 1% indicates that a LEFT SHIFT is Present. MCH (RBC) [Entitic mass] 30.7 pg 27.0-32.0 [facility] Nucleated RBC/100 WBC (Bld) [Ratio] 0 % 0-5 [facility] MCHC Auto (RBC) [Mass/Vol]Or dered By: Emi Cook on 01-26-2023 MCHC (RBC) [Mass/Vol] 32.8 g/dL 32-36 [facility] No Panel InformationOrdered By: Emi Cook on 01-26-2023 Vitamin D 25-Hydroxy 12.5 ng/mL [facility] Comment on above: Vitamin D 25(OH) Sta tus Range Deficiency <20 ng/mL (50nmol/L) Insufficiency 20 - 30 ng/mL (50 - 75 nmol/L) Sufficiency 30 - 100 ng/mL (75 - 250 nmol/L) Toxicity >100 ng/mL (>250 nmol/L) Estimated GFR (MDRD) Amer 77 mL/min >60 [facility] Comment on above: GFR Calc Estimated GFR (MDRD) Non-Af Amer 64 mL/min >60 [facility] Comment on above: Non- GFR Calc Platelets bldOrdered By: Ventura Cook on 01-26-2023 Platelets (Bld) [#/Vol] 238 10*3/uL 150-450 [facility] Serum or plasma albumin yahaira urement (mass/volume)Ordered By: Emi Cook on 01-26-2023 Albumin [Mass/Vol] 3.7 g/dL 3.2-5.0 [facility] Serum or plasma albumin/glob ulin mass ratioOrdered By: Emi Cook on 01-26-2023 Albumin/Globulin [Mass ratio] 1.0 {ratio} 0.9-2.4 [facility] Serum or plasma calcium yahaira urement (mass/volume)Ordered By: Emi Cook on 01-26-2023 Calcium [Mass/Vol] 9.3 mg/dL 8.5-10.1 [facility] Serum or plasma cholesterol in HDL measurement (mass/volume)Ordered By: Emi Cook on 01-26-2023 Cholesterol in HDL [Mass/Vol] 68 mg/dL >40 [facility] Comment on above: The drugs N-Acetylcy steine and Metamizole may falsely depress this assay. Reference Range HDL <40 mg/dL Low HDL Cholesterol HDL >or= 60 mg/dL High HDL Cholesterol Serum or plasma cholesterol in VLDL measurement (mass/volume)Ordered By: Emi Cook on 01-26-2023 Cholesterol in VLDL [Mass/Vol] 44 mg/dL 5-40 [facility] Serum or plasma creatinine m easurement (mass/volume)Ordered By: Emi Cook on 01-26-2023 Creatinine [Mass/Vol] 0.91 mg/dL 0.55-1.02 [facility] Comment on above: The validity of the calculated GFR & GFRAA in patients over 70 years has not been determined. Clinical correlation is essential. Serum or plasma low density lipoprotein (LDL) cholesterol measurement (mass/volume)Ordered By: Emi Cook on 01-26-2023 Cholesterol in LDL [Mass/Vol] 32 mg/dL 0-130 [facility] Serum or plasma urea nitroge n measurement (mass/volume)Ordered By: Emi Cook on 01-26-2023 Urea nitrogen [Mass/Vol] 20 mg/dL 7-18 [facility] Thin prep Papanicolaou smear with manual screeningOrdered By: Emi Cook on 01-26-2023 Thin prep Papanicolaou smear with manual screening 17 U/L 15-37 [facility] Thin prep Papanicolaou smear with manual screening 6 5-15 [facility] MRI Brain w/o Contraston MRI Brain w/o Contrast Patient Name: CYNDEE VITAL [facility] ACCESSION EXAM DATE/TIME PROCEDURE ORDERING PROVIDER [id number] 11/11/2021 12:17 EST MRI Brain w/o Contrast MD JONATHAN, GUNJAN CPT code 61356 Reason For Exam (MRI Brain w/o Contrast) [...] Transcribed Date and Time: 11/11/2021 1:28 Normal [facility] Thyroid Stim. Hormoneon 12-0 Thyroid Stim. Hormone 2.135 u[IU]/mL Normal 0.465-4.68 0 [facility] Comment on above: Performed By: #### T SH5, B12 #### [facility] [address] [place] [address] Vitamin B12on 10-14-2021 Cobalamin (Vitamin B12) [Mass/Vol] 256 pg/mL Normal 239-931 [facility] Comment on above: Performed By: #### T SH5, B12 #### [facility] [address] [place] [address] MA MAMMOGRAM SCREENING BILAT ERAL W/TOMOon 08-19-2021 MA MAMMOGRAM SCREENING BILATERAL W/DOMINIC ORIGINAL FROM: EULALIA DEETH [address] [place], [place] [address] PROCEDURE FOR: CYNDEE VITAL [address] [place] [address] Home: PID#: [id number] Exam#: [id number] : 1945 Age: 76 TO: EMI COOK APRN [employer] IN[employer] [address] [place], [place] [address] EXAMINATION: SCREENING DIGITAL BILATERAL MAMMOGRAM WITH TOMOSYNTHESIS, [...] 08/20/2021 9:23:16 AM Ordering Provider: EMI COOK Vascular Sonographer: HAM RODRIGUEZ RT (R) (M) (CT) letter sent: Normal BI-RADS 1 and 2 Mammogram BI-RADS: 1 Negative Normal [facility] [place] Vital Signs Date Time Vital Sign Value Performing Clinician Mirna trinh 02-23-2025 08:57-0400 Body mass index (BMI) [Ratio] 24.46 kg/m2 Gunjan Castillo MD Work Phone: [facility] [employer] 02-23-2025 08:57-0400 Body weight 58.24 kg Gunjan Castillo MD Work Phone: [facility] [employer] 02-23-2025 08:57-0400 Diastolic blood pressure 76 mm[Hg] Gunjan Castillo MD Work Phone: [facility] [employer] 02-23-2025 08:57-0400 Heart rate 78 /min Gunjan Castillo MD Work Phone: [facility] [employer] 02-23-2025 08:57-0400 Systolic blood pressure 121 mm[Hg] Gunjan Castillo MD Work Phone: [facility] [employer] 08-25-2024 08:44-0400 Body mass index (BMI) [Ratio] 26.18 kg/m2 Gunjan Castillo MD Work Phone: [facility] [employer] 08-25-2024 08:44-0400 Body weight 62.32 kg Gujnan Castillo MD Work Phone: [facility] [employer] 08-25-2024 08:44-0400 Diastolic blood pressure 74 mm[Hg] Gunjan Castillo MD Work Phone: [facility] [employer] 08-25-2024 08:44-0400 Heart rate 72 /min Gunjan Castillo MD Work Phone: [facility] [employer] 08-25-2024 08:44-0400 Systolic blood pressure 119 mm[Hg] Gunjan Castillo MD Work Phone: [facility] [employer] 02-25-2024 08:53-0400 Body mass index (BMI) [Ratio] 24.38 kg/m2 Gunjan Castillo MD Work Phone: [facility] [employer] 02-25-2024 08:53-0400 Body weight 58.06 kg Gunjan Castillo MD Work Phone: [facility] [employer] 02-25-2024 08:53-0400 Diastolic blood pressure 60 mm[Hg] Gunjan Castillo MD Work Phone: [facility] [employer] 02-25-2024 08:53-0400 Heart rate 69 /min Gunjan Castillo MD Work Phone: [facility] [employer] 02-25-2024 08:53-0400 Systolic blood pressure 94 mm[Hg] Gunjan Castillo MD Work Phone: [facility] 01-26-2024 17:41-0400 Body height 154.94 cm [facility] 01-26-2024 17:41-0400 Body mass index (BMI) [Ratio] 24 kg/m2 [facility] 01-26-2024 17:41-0400 Body temperature 96.3 [degF] [facility] 01-26-2024 17:41-0400 Body weight 57.6 kg [facility] 01-26-2024 17:41-0400 Diastolic blood pressure 80 mm[Hg] [facility] 01-26-2024 17:41-0400 Heart rate 84 /min [facility] 01-26-2024 17:41-0400 Respiratory rate 18 /min [facility] 01-26-2024 17:41-0400 SaO2% (BldA) [Mass fraction] 97 % [facility] 01-26-2024 17:41-0400 Systolic blood pressure 120 mm[Hg] [facility] 12-07-2023 17:43-0500 Body mass index (BMI) [Ratio] 25.1 kg/m2 [facility] 12-07-2023 17:43-0500 Body temperature 96.8 [degF] [facility] 12-07-2023 17:43-0500 Body weight 60.32 kg [facility] 12-07-2023 17:43-0500 Diastolic blood pressure 60 mm[Hg] [facility] 12-07-2023 17:43-0500 Heart rate 64 /min [facility] 12-07-2023 17:43-0500 Respiratory rate 18 /min [facility] 12-07-2023 17:43-0500 SaO2% (BldA) [Mass fraction] 95 % [facility] 12-07-2023 17:43-0500 Systolic blood pressure 98 mm[Hg] [facility] 10-22-2023 14:58-0500 Body mass index (BMI) [Ratio] 24.42 kg/m2 Gunjan Castillo MD Work Phone: [facility] 10-22-2023 14:58-0500 Body weight 58.15 kg Gunjan Castillo MD Work Phone: [facility] 10-22-2023 14:58-0500 Diastolic blood pressure 69 mm[Hg] Gunjan Castillo MD Work Phone: [facility] 10-22-2023 14:58-0500 Heart rate 56 /min Gunjan Castillo MD Work Phone: [facility] 10-22-2023 14:58-0500 Systolic blood pressure 112 mm[Hg] Gunjan Castillo MD Work Phone: [facility] 02-26-2023 15:46-0400 Body mass index (BMI) [Ratio] 21.87 kg/m2 Gunjan Castillo MD Work Phone: [facility] 02-26-2023 15:46-0400 Body temperature 96.6 [degF] Gunjan Castillo MD Work Phone: [facility] 02-26-2023 15:46-0400 Body weight 52.07 kg Gunjan Castillo MD Work Phone: [facility] 02-26-2023 15:46-0400 Diastolic blood pressure 72 mm[Hg] Gunjan Castillo MD Work Phone: [facility] 02-26-2023 15:46-0400 Heart rate 58 /min Gunjan Castillo MD Work Phone: [facility] 02-26-2023 15:46-0400 Systolic blood pressure 112 mm[Hg] Gunjan Castillo MD Work Phone: [facility] 01-26-2023 16:19-0400 Body height 154.94 cm [facility] 01-26-2023 16:19-0400 Body mass index (BMI) [Ratio] 22.8 kg/m2 [facility] 01-26-2023 16:19-0400 Body temperature 97.2 [degF] [facility] 01-26-2023 16:19-0400 Body weight 54.88 kg [facility] 01-26-2023 16:19-0400 Diastolic blood pressure 80 mm[Hg] [facility] 01-26-2023 16:19-0400 Heart rate 87 /min [facility] 01-26-2023 16:19-0400 Respiratory rate 18 /min [facility] 01-26-2023 16:19-0400 SaO2% (BldA) [Mass fraction] 97 % [facility] 01-26-2023 16:19-0400 Systolic blood pressure 120 mm[Hg] [facility] 02-28-2022 15:28-0400 Body height 154.9 cm Marcus Sorensen DO Work Phone: [facility] 02-28-2022 [id number] Body weight 49.9 kg Marcus Sorensen DO Work Phone: [facility] 02-28-2022 15:040 Diastolic blood pressure 58 mm[Hg] Marcus Sorensen DO Work Phone: [facility] 02-28-2022 15:[id number] Heart rate 58 /min Marcus Sorensen DO Work Phone: [facility] 02-28-2022 [id number] SaO2% (BldA) [Mass fraction] 98 % Marcus Sorensen DO Work Phone: [facility] 02-28-2022 15:040 Systolic blood pressure 112 mm[Hg] Marcus Sorensen DO Work Phone: [facility] Encounters Encounter Date Encounter Type Care Provider Facility Start: 05-30-2025 ambulatory Josué BERG Facil ity:[facility] Start: 03-31-2025 Encounter for genera l adult medical examination without abnormal findings Josué BERG [facility] Start: 03-14-2025 ambulatory EMI Lilo COOK Facil ity:[facility] Start: 03-14-2025 End: 03-14-2025 Subsequent hospital visit by physician Fredi Lauren Work Phone: Radiology Comment on above: Arrived Start: 03-10-2025 End: 03-10-2025 ambulatory Josué BERG Facility:[facility] Start: 02-23-2025 End: 03-10-2025 Telephone encounter Gunjan Castillo MD Work Phone: [facility] Start: 02-23-2025 End: 02-23-2025 Subsequent hospital visit by physician Gunjan Castillo MD Work Phone: [facility] Comment on above: Irregular heart rate Start: 02-23-2025 End: 02-23-2025 ambulatory EMI COOK [facility] Start: 02-23-2025 End: 02-23-2025 Office outpatient visit 40 minutes Gunjan Castillo MD Work Phone: [facility] Comment on above: 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) (Primary Dx); Irregular heart rate; Primary hypertension Start: 02-23-2025 End: 02-23-2025 ambulatory EMI COOK [facility] Start: 02-14-2025 End: 02-14-2025 ambulatory EMI L JOEY Facility:[facility] Start: 02-14-2025 End: 02-14-2025 Subsequent hospital visit by physician Mri Guillaume Lauren Work Phone: Radiology Start: 01-24-2025 End: 01-24-2025 [facility] Start: 11-19-2024 End: 11-19-2024 Letter encounter Celina Levy MD Work Phone: [facility] Start: 09-29-2024 End: 09-29-2024 ambulatory AMILCAR BRADFORD Facility:[facility] Start: 09-29-2024 End: 09-29-2024 Patient encounter procedure Emi Cook ROAD CUTTER.COMPUTER SYSTEMS TECHNOLOGY INSTRUCTOR Work Phone: [facility] Start: 09-29-2024 End: 09-29-2024 Subsequent hospital visit by physician [facility] Comment on above: Examination of parti cipant or control in clinical research [Z00.6] Start: 09-29-2024 End: 09-29-2024 ambulatory AMILCAR BRADFORD Facility:[facility] Start: 09-29-2024 Patient encounter procedure AMILCAR BRADFORD [facility] Start: 09-21-2024 End: 09-21-2024 ambulatory Emi Cook ENVIRONMENTAL MAINTENANCE WORKER Facility:[facility] Start: 09-19-2024 End: 09-19-2024 Telephone encounter Amilcar Bradford MD, PhD Work Phone: Molecular Imaging Comment on above: Returning Patient's Call Start: 09-14-2024 End: 09-15-2024 Orders Only Amilcar Bradford MD, PhD Work Phone: Molecular Imaging Comment on above: Examination of parti cipant or control in clinical research (Primary Dx) Start: 09-14-2024 End: 09-15-2024 Patient encounter procedure Amilcar Bradford MD, PhD Work Phone: [facility] Start: 08-30-2024 End: 08-30-2024 Emergency department patient visit EMI COOK Facility:[facility] Start: 08-25-2024 End: 08-25-2024 Office outpatient visit 25 minutes [facility] Castillo MD [facility] Comment on above: Alzheimer's dementia with behavioral disturbance (HCC) (Primary Dx) Start: 08-25-2024 End: 08-25-2024 ambulatory myTipsIZA [facility] Start: 08-14-2024 End: 08-14-2024 Letter encounter Celina Levy MD Work Phone: [facility] Start: 07-22-2024 End: 07-22-2024 Refill Gunjan Castillo MD Work Phone: [facility] Comment on above: Depression, unspecif ied depression type Start: 05-10-2024 End: 05-10-2024 ambulatory EMI COOK Facility:[facility] Start: 04-26-2024 End: 04-26-2024 ambulatory AMILCAR BRADFORD Facility:[facility] Start: 04-26-2024 End: 04-26-2024 ambulatory AMILCAR BRADFORD Facility:[facility] Start: 04-26-2024 End: 04-26-2024 Patient encounter procedure Emi Cook ROAD CUTTER.COMPUTER SYSTEMS TECHNOLOGY INSTRUCTOR Work Phone: [facility] Start: 04-26-2024 End: 04-26-2024 Subsequent hospital visit [...] St arun Bradford MD, PhD Work Phone: [facility] Start: 04-14-2024 Orders Only Amilcar naqvi MD, PhD Work Phone: Neurology Comment on above: Examination of parti cipant or control in clinical research (Primary Dx) Start: 04-14-[address] arun Bradford MD, PhD Work Phone: [facility] Start: 04-13-2024 Orders Only Amilcar naqvi MD, PhD Work Phone: Radiology Comment on above: Examination of parti cipant in clinical trial (Primary Dx) Start: 04-13-[address] arun Bradford MD, PhD Work Phone: [facility] Start: 02-25-2024 End: 02-25-2024 Office outpatient visit 40 minutes Gunjan Castillo MD Work Phone: [facility] Geriatrics Comment on above: Alzheimer's dementia with behavioral disturbance (HCC) (Primary Dx) Start: 02-01-2024 End: 02-01-2024 Patient encounter procedure [facility] Work Phone: [facility] Start: 02-01-2024 End: 02-01-2024 Subsequent hospital visit by physician Mri [facility] Work Phone: Radiology Comment on above: Examination for norm al comparison or control in clinical research [Z00.6] Start: 01-26-2024 End: 01-26-2024 [facility] Work Phone: Start: 01-26-2024 End: 01-26-2024 Patient encounter procedure Wolfgang Sagastume Neurology Comment on above: Examination for norm al comparison or control in clinical research (Primary Dx) Start: 01-25-2024 ambulatory Roxann Collins RN [facility] C linical Communication Start: 01-25-2024 Patient encounter procedure Roxann Collins RN [facility] Clinical Communication Start: 01-25-2024 Telephone encounter Gunjan ferraro MD Work Phone: [facility] Geriatrics Start: 01-13-2024 End: 01-13-2024 Emergency department patient visit SHAKILA WARE Facility:[facility] Start: 01-03-2024 End: 01-03-2024 Evaluation and management of inpatient EMI COOK Facility:[facility] Start: 12-28-2023 Refill Monica Ahn [facility] Start: 10-22-2023 End: 10-22-2023 Office outpatient visit 40 minutes Gunjan Castillo MD Work Phone: [facility] Geriatrics Comment on above: Alzheimer's dementia without behavioral disturbance (HCC) (Primary Dx); History of depression; Driving safety issue; Vitamin B12 deficiency Start: 09-24-2023 End: 09-24-2023 Subsequent hospital visit by physician [facility] Comment on above: Memory changes [R41. 3] Start: 09-17-2023 Telephone encounter Amilcar Bradford MD, PhD Work Phone: Molecular Imaging Comment on above: NM RESEARCH Start: 07-30-2023 Telephone encounter Wolfgang Sagastume [facility] Comment on above: Opened In Error Start: 07-03-2023 Refill Gunjan goetz MD Work Phone: [facility] Geriatrics Comment on above: Depression, unspecif ied depression type Start: 04-13-2023 End: 04-13-2023 ambulatory UNKNOWN PROVIDER Facility:[facility] Start: 04-13-2023 End: 04-13-2023 Office outpatient new 20 minutes Celina Levy MD Work Phone: [facility] Dermatology Comment on above: Seborrheic keratoses (Primary Dx); Ephelides; Lentigines; Multiple nevi Start: 02-26-2023 End: 02-26-2023 Office outpatient visit 40 minutes Gunjan Castillo MD Work Phone: [facility] Geriatrics Comment on above: Alzheimer's dementia without behavioral disturbance (HCC) (Primary Dx); Depression, unspecified depression type Start: 02-19-2023 Telephone encounter Amilcar Bradford MD, PhD Work Phone: Molecular Imaging Comment on above: NM RESEARCH Cancelled Appointmen t (Cancel and reschedule ) Start: 02-19-2023 End: 02-19-2023 Patient encounter procedure Emi Cook ROAD CUTTER.COMPUTER SYSTEMS TECHNOLOGY INSTRUCTOR Work Phone: Molecular Imaging Start: 02-19-2023 End: 02-19-2023 Subsequent hospital visit by physician [facility] Comment on above: Examination for norm al comparison or control in clinical research [Z00.6] Start: 01-26-2023 End: 01-26-2023 ambulatory [facility] Work Phone: Start: 01-26-2023 End: 01-26-2023 Patient encounter procedure [facility], Specimen Start: 01-21-2023 Patient encounter procedure Wolfgang gaston Neurology Comment on above: Examination for norm al comparison or control in clinical research (Primary Dx) Start: 08-22-[address] [facility] Start: 08-22-2022 End: 08-22-2022 Subsequent hospital visit by physician Yoselyn Paez ROAD CUTTER - COMPUTER SYSTEMS TECHNOLOGY INSTRUCTOR Work Phone: [facility] Start: 02-28-2022 End: 02-28-2022 Patient encounter procedure Marcus Christian Sorensen DO Work Phone: Cardiology Comment on above: PSVT (paroxysmal sup raventricular tachycardia) (HCC) (Primary Dx); PVC (premature ventricular contraction); Pure hypercholesterolemia Start: 02-17-2022 ambulatory UNKNOWN PROVIDER [facility] Start: 11-18-2021 ambulatory UNKNOWN PROVIDER [facility] Start: 10-28-2021 ambulatory UNKNOWN PROVIDER [facility] Start: 10-14-2021 ambulatory UNKNOWN PROVIDER [facility] Start: 08-19-2021 End: 08-19-2021 Patient encounter procedure EMI Nagy JOEY ROAD CUTTER-COMPUTER SYSTEMS TECHNOLOGY INSTRUCTOR [place] Procedures Date Procedure Procedure Detail Performing Clinician [...] 10-06-2019 Adult depression scr eening assessment Marcus Eduasia URIBE Work Phone: H/O: hysterectomy EMI CUEVAS JE[address] CUTTER-COMPUTER SYSTEMS TECHNOLOGY INSTRUCTOR Plan of Treatment Date Care Activity Detail Author Start: 08-30-2027 [facility] Start: 01-12-2027 Diabetes Screening Diabetes Screenin [facility] Start: 08-31-2025 End: 08-31-2025 Patient encounter procedure 08/31/2025 9:00 AM EDT Office Visit [facility] Shreyas Perales [address] [place] [address] Gunjan Castillo MD [address] [place] [phone] [facility] Start: 08-25-2025 Depression Monitoring Depression Mon [facility] Start: 07-10-2025 Influenza vaccination Influenz a Vaccine (Season Ended) [facility] Start: 04-11-2025 End: 04-11-2025 Patient encounter procedure 04/11/2025 9:30 AM EDT Appointment Radiology [address] [place] [id number]/ Pro[facility]na [id number] professional [id number]_Unscheduled MR Radiology Comment on above: [id number] [address]/ Prothena [id number] professional [id number]_Unscheduled MR Start: 02-23-2025 Depression Monitoring Depression Mon itoring [facility] Start: 02-23-2025 End: 02-23-2025 Patient encounter procedure 02/23/2025 9:00 AM EDT [facility] [address] [place] [phone] Gunjan Castillo MD [address] [phone] [facility] Start: 11-09-2024 Advance Directive Discussion Advance Directive Discussion [facility] Start: 11-09-2024 Medicare Advantage Annual Wellness Visit Medicare [facility] Annual Wellness Visit [facility] Start: 10-07-2024 LIPID SCREEN LIPID SCREEN [facility] Start: 09-29-2024 End: 09-29-2024 Patient encounter procedure [facility] Comment on above: NM PET/CT BRAIN PLAQ [facility] Start: 09-29-2024 End: 09-29-2024 Patient encounter procedure 09/29/2024 12:30 PM EST Office Visit Radiology [address] [place] [address] Direct pt.to MRI U15 desk Radiology Comment on above: Direct pt.to MRI U15 desk Start: 08-26-2024 [facility] Start: 08-26-2024 Depresssion Monitoring Depresssion M onitoring [facility] [employer] Start: 08-25-2024 End: 08-25-2024 Patient encounter procedure [facility] Start: 07-10-2024 COVID-19 Vaccine ( season) COVID-19 Vaccine ( season) [facility] Start: 07-10-2024 COVID-19 Vaccine () COVID-19 Vaccine () [facility] Start: 07-10-2024 Covid-19 Vaccine ( season) Covid-19 Vaccine ( season) [facility] Start: 07-10-2024 Influenza vaccination S [facility] Start: 04-26-2024 End: 04-26-2024 Patient encounter procedure [facility] Comment on above: NM PET/CT BRAIN PLAQ [facility] Start: 04-22-2024 Depresssion Monitoring Depresssion M onitoring [facility] Start: 04-19-2024 End: 04-19-2024 Patient encounter procedure 04/19/2024 9:30 AM EDT Office Visit Radiology [address] [place] [address] Research [id number] Subject [id number] Day 162 MRI Radiology Comment on above: Research [id number] Subject [id number] Day 162 MRI Start: 02-25-2024 End: 02-25-2024 Patient encounter procedure 02/25/2024 8:45 AM EDT Office Visit [facility] Geriatric[facility] [place] [place] [address] Gunjan Castillo MD [address] [address] [facility] Geriatric[facility] Start: 01-26-2024 5,10-methylenetetrah ydr ofolate reductase gene analysis [facility] Start: 11-09-2023 Advance Directive Discussion Advance Directive Discussion [facility] Start: 11-09-2023 Behavioral Health Screening Behavioral Health Screening [facility] Start: 11-09-2023 Depression Assessment Depression Ass essment [facility] Start: 11-09-2023 Medicare Advantage Annual Wellness Visit Medicare Advantage Annual Wellness Visit [facility] Start: 10-22-2023 End: 10-22-2024 Cobalamin (Vitamin B12) [Mass/volume] in Serum or Plasma Vitamin B12 Lab Routine Vitamin B12 deficiency Expected: 10/22/2023 (Approximate), Expires: 10/22/2024 [facility] [employer] Work Phone: Comment on above: Expected: 10/22/2023 (Approximate), Expires: 10/22/2024 Start: 08-28-2023 Depresssion Monitoring Depresssion M onitoring [facility] Start: 07-10-2023 COVID-19 Vaccine ( season) COVID-19 Vaccine () [facility] Start: 07-10-2023 Covid-19 Vaccine ( season) Covid-19 Vaccine () [facility] Start: 07-10-2023 Influenza vaccination C [facility] Start: 02-17-2023 Depression Monitoring Depression Mon itoring [facility] Start: 11-09-2022 ADVANCE DIRECTIVE DISCUSSION ADVANCE DIRECTIVE DISCUSSION [facility] Start: 11-09-2022 DEPRESSION ASSESSMENT DEPRESSION ASS ESSMENT [facility] Start: 10-07-2022 DIABETES SCREEN DIABETES SCREEN [facility] Start: 10-07-2022 Diabetes Screening Diabetes Screenin g [facility] Start: 07-10-2022 Influenza vaccination C [facility] Start: 06-09-2022 Influenza vaccination Flu vaccine (# 1) [facility] Start: 11-30-2021 COVID-19 VACCINE (4 - Booster for Pfizer series) COVID-19 VACCINE (4 - Booster for Pfizer series) [facility] Start: 11-30-2021 Covid-19 Vaccine (4 - Pfizer series) Covid-19 Vaccine (4 - Pfizer series) [facility] Start: 11-09-2021 ADVANCE DIRECTIVE DISCUSSION ADVANCE DIRECTIVE DISCUSSION [facility] Start: 10-14-2021 Annual Wellness Visi t (AWV) Annual Wellness Visit (AWV) [facility] Start: 2021 RSV Immunization for Adults (1 - 1-dose 75+ series) RSV Immunization for Adults (1 - 1-dose 75+ series) [facility] Start: 2021 RSV Vaccine (1 - 1-d ose 75+ series) RSV Vaccine (1 - 1-dose 75+ series) [facility] Start: 2021 RSV Vaccine (75+ years) RSV Vaccine (75+ years) [facility] Start: 2021 RSV vaccine (adult) (1 - 1-dose 75+ series) RSV vaccine (adult) (1 - 1-dose 75+ series) [facility] Start: 10-06-2020 Adult depression screening assessment DEPRESSION SCREENING [facility] Start: 2011 BONE DENSITY BONE DENSITY [facility] Start: 2011 Bone Density Screening Bone Density Screening [facility] Start: 2011 Pneumococcal 65+ yea rs Vaccine (1 - PCV) Pneumococcal 65+ years Vaccine (1 - PCV) [facility] Start: 2011 Pneumococcal vaccination [facility] Start: 2011 Pneumococcal Vaccine : 65+ (1 - PCV) Pneumococcal Vaccine: 65+ (1 - PCV) [facility] Start: 2011 Pneumococcal Vaccine : 65+ (1 of 1 - PCV) Pneumococcal Vaccine: 65+ (1 of 1 - PCV) [facility] Start: 2011 Pneumococcal Vaccine : 65+ Years (1 - PCV) Pneumococcal Vaccine: 65+ Years (1 - PCV) [facility] Start: 2011 Pneumococcal Vaccine : 65+ Years (1 of 1 - PCV) Pneumococcal Vaccine: 65+ Years (1 of 1 - PCV) [facility] Start: 2011 PNEUMOCOCCAL: 65+ (1 - PCV) PNEUMOCOCCAL: 65+ (1 - PCV) [facility] Start: 2011 PNEUMOVAX AGE 65 AND OVER WITH 5YR LOOKBACK (#1) PNEUMOVAX AGE 65 AND OVER WITH 5YR LOOKBACK (#1) [facility] Start: 2011 Screening for osteoporosis [facility] Start: 2006 Hepatitis B (HBV) Vaccine (optional start 60+ years) Hepatitis B (HBV) Vaccine (optional start 60+ years) [facility] Start: 2006 RSV Immunization age d 60 or older (1 - 1-dose 60+ series) RSV Immunization aged 60 or older (1 - 1-dose 60+ series) [facility] Start: 2006 RSV Vaccine (1 - 1-d ose 60+ series) RSV Vaccine (1 - 1-dose 60+ series) [facility] Start: 2001 Screening for osteoporosis DEXA (modify frequency per FRAX score) [facility] Start: 1996 Pneumococcal vaccination Pneumococcal Vaccine(s) (50+ yrs) (1 of 1 - PCV) [facility] Start: 1996 Pneumococcal Vaccine : 50+ (1 of 1 - PCV) Pneumococcal Vaccine: 50+ (1 of 1 - PCV) [facility] Start: 1996 Pneumococcal Vaccine : 50+ Years (1 of 1 - PCV) Pneumococcal Vaccine: 50+ Years (1 of 1 - PCV) [facility] Start: 1996 Shingles (RZV) Vacci ne (1 of 2) Shingles (RZV) Vaccine (1 of 2) [facility] Start: 1996 Shingles vaccine (1 of 2) Shingles vaccine (1 of 2) [facility] Start: 1996 SHINGRIX VACCINE (1 of 2) SHINGRIX VACCINE (1 of 2) [facility] Start: 1996 Zoster Vaccines (1 o f 2) Zoster Vaccines (1 of 2) [facility] Start: 1991 COLOGUARD (FIT-DNA) COLOGUARD (FIT-D NA) [facility] Start: 1991 Colonoscopy COLONOSCOPY [facility] Start: 1991 COLORECTAL CANCER SCREENING COLORECTAL CANCER SCREENING [facility] Start: [address] COLONOGRAPHY [facility] Start: 1991 FECAL OCCULT BLOOD FECAL OCCULT BLOO D [facility] Start: 1991 SIGMOIDOSCOPY SIGMOIDOSCOPY [facility] Start: 1965 DTaP/Tdap/Td vaccine (1 - Tdap) DTaP/Tdap/Td vaccine (1 - Tdap) [facility] Start: 1965 DTaP/Tdap/Td Vaccine s (1 - Tdap) DTaP/Tdap/Td Vaccines (1 - Tdap) [facility] Start: 1965 Hepatitis A (HAV) Vaccine (optional start 19+ years) Hepatitis A (HAV) Vaccine (optional start 19+ years) [facility] Start: 1965 Urine microalbumin profile [facility] Start: 1964 Anxiety Screening Anxiety Screening [facility] Start: 1964 Depression Screening Depression Scre ening [facility] Start: 1964 Diabetes mellitus screening Diabetes Screening [facility] Start: 1964 HEPATITIS C SCREENING HEPATITIS C SC ALLIE [facility] Start: 1964 Hepatitis C screening S [facility] Start: 1964 Tetanus + diphtheria + acellular pertussis vaccine (product) Tdap Booster [facility] Start: 1956 Lipid panel Lipids [facility] Start: 1946 COVID-19 Vaccine (#1) COVID-19 Vacci ne (#1) [facility] Start: 1946 Hepatitis B Vaccines (1 of 3 - 3-dose series) Hepatitis B Vaccines (1 of 3 - 3-dose series) [facility] Start: 1946 Lipid panel Lipid Panel [facility] Start: 1946 Medicare Advantage Annual Wellness Visit (AWV) Medicare Advantage Annual Wellness Visit (AWV) [facility] Start: 1945 Screening for osteoporosis Bone Density Scan [facility] 5,10-methylenetetrah ydr ofolate reductase gene analysis [facility] ECG 12 lead ECG 12 lead CV E CG Routine Irregular heart rate 02/23/2025 9:57 AM EDT [facility] [employer] [facility] Work Phone: End: 02-28-2023 ECG COMPLETE ECG COMPLETE ECG Routine PSVT (paroxysmal supraventricular tachycardia) (HCC) 1 Occurrences starting 02/28/2022 until 02/28/2023 [facility] Work Phone: Comment on above: 1 Occurrences starti ng 02/28/2022 until 02/28/2023 End: 02-24-2025 MR Brain WO contrast MRI BRAIN WO IVCON Radiology Routine Examination for normal comparison or control in clinical research 1 Occurrences starting 01/27/2024 until 02/24/2025 [facility] Work Phone: Comment on above: 1 Occurrences starti ng 01/27/2024 until 02/24/2025 End: 02-20-[address] for attenuation limited area NM PET/CT BRAIN [facility] Radiology Routine Examination for normal comparison or control in clinical research 1 Occurrences starting 01/22/2023 until 02/20/2024 [facility] Work Phone: Comment on above: 1 Occurrences starti ng 01/22/2023 until 02/20/2024 End: 05-15-2025 PET+CT Brain for amyloidosis NM PET/CT BRAIN [facility] Radiology Routine Examination of participant or control in clinical research 1 Occurrences starting 04/16/2024 until 05/15/2025 [facility] Work Phone: Comment on above: 1 Occurrences starti ng 04/16/2024 until 05/15/2025 PET+CT Brain for amyloidosis NM PET/CT BRAIN [facility] Radiology Routine Examination of participant or control in clinical research 04/26/2024 3:31 PM EDT [facility] Work Phone: End: 10-14-2025 PET+CT Brain for amyloidosis NM PET/CT BRAIN [facility] Radiology Routine Examination of participant or control in clinical research 1 Occurrences starting 09/15/2024 until 10/14/2025 [facility] Work Phone: Comment on above: 1 Occurrences starti ng 09/15/2024 until 10/14/2025 PET+CT Brain for amyloidosis NM PET/CT BRAIN [facility] Radiology Routine Examination of participant or control in clinical research 09/29/2024 3:39 PM EST [facility] Work Phone: [facility] Immunizations Immunization Date Immunization Notes Care Provider Kenroy hernandez 09-23-2007 influenza virus vacc ine, unspecified formulation [facility] Work Phone: [facility] Payers Date Payer Category Payer Medicare [id number] 2024 Medicare [id number] 2024 Self-pay [id number] 2022 Commercial Indemnity COMMERCIAL INSURANCE - OTHER Member Subscriber Plan / Payer (Effective 2022-Present) Name: Cyndee Vital Relation to Subscriber: Self Name: Cyndee Vital Payer ID: Not on file Group ID: Not on file Type: Indemnity Address: [facility] [address] [place] [address] [id number] 11-09-2022 Medicare HMO [id number] 11-09-2022 Private Health Insurance [id number] 11-09-2022 Unknown COMMERCIAL INSUR ANCE - OTHER COMMERCIAL INSURANCE OTHER [id number] 11/09/2022-Present [address] [place] [address] Indemnity [id number] 11-09-2020 Medicare UHC AAR MEDICAR E [facility] AAR MEDICARE O [id number] 11/09/2020-Present [phone] [address] [address] [place] [address] HMO [id number] 11-09-2020 Medicare [id number] 11-09-2020 Medicare [id number] 05-09-2011 Medicare MEDICARE PART A B [id number] 1945 Unknown [id number] Unknown [id number] Unknown [id number] .1946 Unknown [id number] .1946 Unknown [id number] .1945 Unknown [id number] Private Health Insurance Private Health Insurance [employer] [facility] [id number] Unknown [facility] [id number] Unknown [employer] [id number] Unknown [id number] Unknown [id number] Unknown [id number] Social History Date Type Detail Facility Start: 10-06-2019 End: 01-13-2024 Never smoked tobacco (finding) [place] Start: 1945 Sex Assigned At Female [facility] Start: 10-06-2019 End: 01-13-2024 Tobacco use and exposure Smokeless tobacco non-user [facility] Start: 02-28-2022 End: 08-30-2024 Alcohol intake Current drinker of alcohol (finding) [facility] Start: 10-06-2019 History SDOH Alcohol Frequency 2 [facility] Start: 10-06-2019 History SDOH Alcohol Std Drinks 1 [facility] Start: 10-06-2019 History SDOH Alcohol Comment occasional [facility] Start: 1945 Sex Assigned At Not on file [facility] Start: 08-12-2022 End: 02-26-2023 Exposure to SARS-CoV-2 (event) Not sure [facility] Start: 12-21-2020 End: 08-31-2023 Tobacco smoking status NCIS Unknown if ever smoked [facility] Start: 02-26-2023 End: 02-23-2025 Alcohol intake Ex-drinker (finding) [facility] Start: 02-26-2023 End: 09-24-2023 Alcohol intake [facility] Start: 02-26-2023 End: 09-24-2023 Gender identity Not on file [facility] Start: 02-18-2023 Gender identity Identifies as female gender (finding) [facility] Start: 02-18-2023 Sexual orientation Heterosexual (finding) [facility] How often to you hav e a drink containing alcohol? Monthly or less [facility] Work Phone: How many standard dr inks containing alcohol do you have on a typical day? 1 or 2 [facility] Work Phone: How often do you hav e 6 or more drinks on 1 occasion? Never [facility] Work Phone: PHQ2 Score 0 [facility] Start: 06-09-2022 End: 11-04-2022 Sex Female (finding) [facility] Has the [employer], or [employer] threatened to shut off services in your home in past 12Mo No [facility] Do you belong to any clubs or organizations such as mandaen groups, unions, fraternal or athletic groups, or school groups? Yes [facility] Are you now , , , , never or living with a partner? [facility] How hard is it for y ou to pay for the very basics like food, housing, medical care, and heating Somewhat hard [facility] Do you feel stress - tense, restless, nervous, or anxious, or unable to sleep at night because your mind is troubled all the time - these days [OSQ] To some extent [facility] Functional Status Date Assessment Result Facility 01-03-2024 Are you deaf, or do you have serious difficulty hearing No 01/03/2024 10:37 AM Tyra Patiño, PAULETTE No [facility] 01-03-2024 Are you blind, or do you have serious difficulty seeing, even when wearing glasses No 01/03/2024 10:37 AM Tyra Patiño, PAULETTE No [facility] 01-03-2024 Do you have serious difficulty walking or climbing stairs No 01/03/2024 10:37 AM Tyra Patiño, PAULETTE No [facility] 01-03-2024 Do you have difficul ty dressing or bathing No 01/03/2024 10:37 AM Tyra Patiño, PAULETTE No [facility] 01-03-2024 Because of a physica l, mental, or emotional condition, do you have difficulty doing errands alone such as visiting a physician's office or shopping Yes 01/03/2024 10:37 AM Tyra Patiño, RN Yes [facility] Mental Status Date Assessment Result Facility 01-03-2024 Because of a physica l, mental, or emotional condition, do you have serious difficulty concentrating, remembering, or making decisions Yes 01/03/2024 10:37 AM Tyra Patiño, RN Yes [facility] Clinical Notes 10-06-2019 to 02-24-2025 Telephone Encounter [...] Electronically Signed On 02-24-2025 10:47:30 EDT by [facility] 02-24-2025 Note IMPRESSION: Sinus rhythm Ventricular premature complex Abnormal R-wave progression, early transition No previous ECG available for comparison Electronically Signed On 02-24-2025 10:47:30 EDT by [facility] 02-23-2025 Telephone encounter Note Requested papers were signed by Dr Castillo and faxed to [phone]. [facility] 02-23-2025 Miscellaneous Notes Requested papers were signed by Dr Castillo and faxed to [phone]. Thanks! Patient will be moving into [facility]. They need the following per daughter: -History and Physical -Face Sheet -Med List -Progress Notes -Discharge orders ( statement from the physician recommending [facility] Collector Care Placement) They could be sent by email or fax to [email or web address] F: [phone]" Can you print out today's note, today's letter, a facesheet, and a medication list? Once I sign the note/letter, then this can be faxed to [facility]. Thanks! I spoke to Elizabeth and she [...] correct on the Med list for the [facility] documented in this encounter [facility] 02-23-2025 Telephone encounter Note Thanks! Patient will be moving into [facility]. They need the following per daughter: -History and Physical -Face Sheet -Med List -Progress Notes -Discharge orders ( statement from the physician recommending Blood Collector Care Placement) They could be sent by email or fax to [email or web address] F: [phone]" Can you print out today's note, today's letter, a facesheet, and a medication list? Once I sign the note/letter, then this can be faxed to [facility]. Thanks! [facility] 02-23-2025 Telephone encounter Note I spoke to Elizabeth and she said it was recently changed to: 25 mg at 10:00 am, 25 mg at 2:00 pm, 50 mg at 5:00 pm and 50 mg at 8:[address] [facility] 02-23-2025 Telephone encounter Note Can you call and confirm the quetiapine (Seroquel) dosing with daughter Elizabeth? We have the dose as 50 mg at lunch, 50 mg at 4 pm, and 100 mg at 8 pm. I want to make sure it is correct on the Med list for the [facility] 02-23-2025 History of Present illness Narrative Images from the original note were not included. [facility] - [address] [address] Dept: [phone] Dept Loc: [phone] Visit type: [facility] Follow Up Visit Reason for Visit: [...] -Plan is for patient to move into [facility] care unit. I agree that she is appropriate for ocean transportation intermediary care placement at this time due to Alzheimer's Disease. Needs 24/7 supervision due wandering risk. Needs medication administration [...] Disease, hypertension, depression who presents to the [facility] for a follow-up visit. The patient [...] for sleep as well. MMSE 11/07 Received mychart message from the family: Patient will be moving into a memory care unit at [facility]. Will do the H and P for [...] "wants to escape"). -Has a 24 hour surgery consultant. -Sleep: Better now. -Appetite: Still eats well. [...] good. 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 Activities: watches tv, spends time with cat >>02/17/22 just went on vacation, walks in condo, plays cards, plays piano, visiting friends >>08/22/22 outside, TV, cat sits out with neighbor, mandaen, >>02/26/23 walks, visits with neighbors, mandaen, kids' sports games, just came back from vacation >>10/22/23 same >>02/25/24 visits with aide, getting to physical therapy, going on walks >>08/25/24 visits with aides, goes to [facility], goes to [facility] >>02/23/25 same Exercise: walks around her house >>02/17/22 walking, weights >>08/22/22 walks around the condo or in her neighborhood >>02/26/23 walks >>10/22/23 walks >>02/25/24 walks, physical therapy >>08/25/24 walking, goint to [facility] Finances: meeting soon with Medicaid attorney at law Healthcare Power of Public Health Teacher: Yes, Daughter Elizabeth Financial Power of Public Health Teacher: Yes, Daughter Elizabeth Living Will: Yes Guardian:No [...] sees her sometimes >>02/25/24 has 24 hour care management coordinator, April who is living with her, another aide [...] members. SW suggested that daughter check out www.[email or web address] to check out any other products that [...] will do fresh foods, etc, goes to [employer] >>02/26/23 patient buys her dry products at [employer], daughter picks up the rest >>10/22/23 same >>02/25/24 son takes her shopping, son shops, February makes a list >>08/25/24 sister shops, aide makes list Meal prep [] [] [x] Still cooking, no issues >>02/17/22 same >>08/22/22 never been a big cooker, dtr does meals for her, microwave, basic stuff ,soup >>02/26/23 daughter takes over meals frequently, goes out to eat often, eats more prepared foods >>10/22/23 not forgetting to eat, mostly heating up prepared foods >>02/25/24 bertaFebruary prepares food, puts in front of her >>08/25/24 same Housework [] [] [x] Still cleaning, no issues >>02/17/22 same >>08/22/22 immaculate >>02/26/23 same >>10/22/23 same >>02/25/24ricardoFebruary cleans >>08/25/24 same Medications [] [] [x] [...] same >>08/25/24 same documented in this encounter [facility] 01-24-2025 Telephone encounter Note Request for refill received from interface Last appointment: 08/25/2024 Next appointment: 02/23/2025 Pharmacy confirmed: [x] Yes [] No [facility] 01-24-2025 Miscellaneous Notes Request for refill received from interface Last appointment: 08/25/2024 Next appointment: 02/23/2025 Pharmacy confirmed: [x] Yes [] No documented in this encounter [facility] 09-29-2024 History of Present illness Narrative RADIOLOGY [...] PATIENT PRESENTS WITH AN IMPLANTABLE OR ATTACHED DIRECTOR MACHINE: No CREATININE: Creatinine Date Value Ref Range [...] 1424 PATIENT DISCHARGED TO: Ambulatory patient, left [facility] area. Is this a therapy: No A Diagnostic radioactive procedure has taken place, with no further precautions necessary other than routine body substance precautions. More information regarding radiation safety can be found using this link: [email or web address] [email or web address]%20Nuclear %20Medicine%[email or web address] SIGNATURE: MERLINE Silva) PATIENT NAME: Cyndee Vital DATE: September 29, 2024 TIME: 2:27 PM PAGER/CONTACT #: documented in this encounter [facility] 09-29-2024 Note HNO ID: [id number] Author: RAISA SMITH RT (R) Service: Radiology Author Type: Technologist Type: Progress [...] PATIENT PRESENTS WITH AN IMPLANTABLE OR ATTACHED DIRECTOR MACHINE: No CREATININE: Creatinine Date Value Ref Range [...] 1424 PATIENT DISCHARGED TO: Ambulatory patient, left [facility] area. Is this a therapy: No A Diagnostic radioactive procedure has taken place, with no further precautions necessary other than routine body substance precautions. More information regarding radiation safety can be found using this link: [email or web address] [email or web address]-% 20Diagnostic%20Nuclear%20Medicine% 20Procedures.pdf SIGNATURE: Raisa Smith RT(R) PATIENT NAME: Cyndee Vital DATE: September 29, 2024 TIME: 2:27 PM PAGER/CONTACT #: [facility] 09-19-2024 Telephone encounter Note CYNDEE VITAL \\ [id number] DOS: 09/29/24 PET INJ: 1430 PET 4: 1530 APPT NOTES: DO NOT SUBMIT AUTH TO INSURANCE, BILLED TO [facility]EARCH STUDY ANU [id number] PET BRAIN AMYVID RESEARCH STUDY TRANSMITTAL FORM PET 2 ONLY NO CHARGE FOR DOSE [facility] 09-19-2024 Miscellaneous Notes CYNDEE VITAL \\ [id number] DOS: 09/29/24 PET INJ: 1430 PET 4: 1530 APPT NOTES: DO NOT SUBMIT AUTH TO INSURANCE, BILLED TO [facility] ANU [id number] PET BRAIN AMYVID RESEARCH STUDY TRANSMITTAL FORM PET 2 ONLY NO CHARGE FOR DOSE documented in this encounter [facility] 08-25-2024 History of Present illness Narrative Review [...] from the original note were not included. [facility] [address] [facility] [address] Dept: [phone] Dept Loc: [phone] Visit type: [facility] Follow Up Visit Reason for Visit: [...] Disease, hypertension, depression who presents to the [facility] for a follow-up visit. The patient [...] picking. -October 2023: MOCA score declined to 11/30. More [...] care at home History obtained from caregiver(s): Sreekanth Betts -Overall she has been doing well. Still [...] well. Hasn't complained about sciatica. Appetite: Good. [employer] Medical Assistant cooks for her. She has gained weight. [...] anywhere. Reviewed progress notes completed by ALFREDO RUEDA) [...] visit and scanned in to thechart: MMSE score:11/07 Clock drawing score: 1/7 PHQ-9 score: 0 [...] here close to daughter in 2018 from [place] >>02/17/22 same >>02/26/23 same >>10/22/23 same >>02/25/24 [...] of education: some college Occupation: retired from [employer] Activities: watches tv, spends time with cat >>02/17/22 just went on vacation, walks in condo, plays cards, plays piano, visiting friends >>08/22/22 outside, TV, cat sits out with neighbor, mandaen, >>02/26/23 walks, visits with neighbors, mandaen, kids' sports games, just came back from vacation >>10/22/23 same >>02/25/24 visits with aide, getting to physical therapy, going on walks >>08/25/24 visits with aides, goes to [facility], goes to [facility] Exercise: walks around her house >>02/17/22 walking, weights >>08/22/22 walks around the condo or in her neighborhood >>02/26/23 walks >>10/22/23 walks >>02/25/24 walks, physical therapy >>08/25/24 walking, goint to [facility] Finances: meeting soon with Medicaid attorney at law Healthcare Power of Public Health Teacher: Yes, Daughter Elizabeth Financial Power of Public Health Teacher: Yes, Daughter Elizabeth Living Will: Yes Guardian:No [...] sees her sometimes >>02/25/24 has 24 hour care management coordinator, Xochitl who is living with her, another [...] members. SW suggested that daughter check out www.[employer] to check out any other products that [...] No resources given today. >>08/25/24 Still has 01/06 aide, patient still involved with research study. [...] will do fresh foods, etc, goes to [employer] >>02/26/23 patient buys her dry products at [employer], daughter picks up the rest >>10/22/23 same >>02/25/24 son takes her shopping, son shops, February makes a list >>08/25/24 sister shops, aide makes list Meal prep [] [] [x] Still cooking, no issues >>02/17/22 same >>08/22/22 never been a big cooker, dtr does meals for her, microwave, basic stuff ,soup >>02/26/23 daughter takes over meals frequently, goes out to eat often, eats more prepared foods >>10/22/23 not forgetting to eat, mostly heating up prepared foods >>02/25/24 dougricardo Xochitl prepares food, puts in front of her >>08/25/24 same Housework [] [] [x] Still cleaning, no issues >>02/17/22 same >>08/22/22 immaculate >>02/26/23 same >>10/22/23 same >>02/25/24 berta February cleans >>08/25/24 same Medications [] [] [x] [...] same >>08/25/24 same documented in this encounter [facility] 07-22-2024 Telephone encounter Note Ordering provider: Gunjan Castillo Date of last office visit: 02/25/24 Date of next office visit: 08/25/24 Updated/Validated preferred pharmacy: Yes [facility] - [place], [place] - [address] [phone] Patient instructed to contact the pharmacy prior [...] of last refill (see medication tab): 12/28/23 [facility] 07-22-2024 Miscellaneous Notes Ordering provider: Gunjan Castillo Date of last office visit: 02/25/24 Date of next office visit: 08/25/24 Updated/Validated preferred pharmacy: Yes [facility] - [place], [place] - [address] [phone] Patient instructed to contact the pharmacy prior [...] medication tab): 12/28/23 documented in this encounter [facility] 04-26-2024 History of Present illness Narrative RADIOLOGY [...] PATIENT PRESENTS WITH AN IMPLANTABLE OR ATTACHED DIRECTOR MACHINE: No CREATININE: Creatinine Date Value Ref Range [...] 14:16 PATIENT DISCHARGED TO: Ambulatory patient, left [place] area. A Diagnostic radioactive procedure has taken place, with no further precautions necessary other than routine body substance precautions. More information regarding radiation safety can be found using this link: [email or web address] [email or web address]-%20Diagnostic%20Nuclear %20Medicine%20Procedures.pdf SIGNATURE: MERLINE Dan) PATIENT NAME: Cyndee Vital DATE: April 26, 2024 TIME: 2:22 PM PAGER/CONTACT #: documented in this encounter [facility] 04-26-2024 Note HNO ID: [id number] Author: EMERSON MOCTEZUMA RT (R) Service: Nuclear Medicine Author Type: Technologist Type: [...] PATIENT PRESENTS WITH AN IMPLANTABLE OR ATTACHED DIRECTOR MACHINE: No CREATININE: Creatinine Date Value Ref Range [...] 14:16 PATIENT DISCHARGED TO: Ambulatory patient, left [place] department area. A Diagnostic radioactive procedure has taken place, with no further precautions necessary other than routine body substance precautions. More information regarding radiation safety can be found using this link: [email or web address] [email or web address]-% 20Diagnostic%20Nuclear%20Medicine% 20Procedures.pdf SIGNATURE: RT Sy(R) PATIENT NAME: Cyndee Vital DATE: April 26, 2024 TIME: 2:22 PM PAGER/CONTACT #: [facility] 04-18-2024 Telephone encounter Note Scheduled as requested 04/26 @ 1530 [facility] 04-18-2024 Miscellaneous Notes Scheduled as requested 04/26 @ 1530 CYNDEE VITAL \\ [id number] DOS: 04/26/24 PET INJ: 1430 PET 2: 1530 APPT NOTES: DO NOT SUBMIT AUTH TO INSURANCE, BILLED TO RESEARCH STUDY PROTHENA [id number] PET BRAIN AMYVID RESEARCH STUDY TRANSMITTAL FORM PET 2 ONLY documented in this encounter [facility] 04-18-2024 Telephone encounter Note CYNDEE VITAL \\ [id number] DOS: 04/26/24 PET INJ: 1430 PET 2: 1530 APPT NOTES: DO NOT SUBMIT AUTH TO INSURANCE, BILLED TO RESEARCH STUDY PROTHENA [id number] PET BRAIN AMYVID RESEARCH STUDY TRANSMITTAL FORM PET 2 ONLY [facility] 02-25-2024 History of Present illness Narrative Review [...] from the original note were not included. [facility] [address] [facility] [address] Dept: [phone] Dept Loc: [phone] Visit type: [facility] Follow Up Visit Reason for Visit: [...] namenda -Continue zoloft for mood -Now with 01/06 care in her home. Will eventually transition into a chcf but family want to keep her home as long as possible. Follow up in about 6 months (around 08/26/2024). Subjective HPI: Cyndee Vital is a 78 y.o. female with past medical history of Alzheimer's Disease, hypertension, depression who presents to the [facility] for a follow-up visit. The patient [...] Subjectively, cognition stable. MOCA did decline to 15/. MIS 01/21 Zoloft increased to 100 mg daily to help with anxiety/skin picking. -Last seen in October 2023: MOCA score declined to 11. More forgetful and needing more cueing. Referred to Occupational Therapy for driving evaluation. Started back on Vitamin D. Continued on aricept, namenda, and zoloft. -Did receive a message that patient no longer driving. -She was hospitalized at the end of December 2023: abdominal/back pain. [place] it was related to sciatica. Also tested positive for COVID. -Seen in ER on 01/12: she had a fall off the toilet and hit the back of her had. She had been taking flexeril for back pain. -In middle of January, daughter called in concerned about behavior changes. Patient left her condo, approached a cafe helper, and asked them to take her home. [...] unsteady on her feet. She now has 24/ care. She gets "mean and agitated". She [...] back -She now has a live in inpatient care manager rn and is receiving 01/06 care. Son is hopeful this can continue for awhile. Family is looking into nursing homes, knowing that one day she will have to move into one. -Hallucinations: Yes. Especially when she was on the flexeril. Will also reach out for things in her sleep. -Sleep: Seroquel has been helping -Appetite: Good. Likely weight gain. Memory: poor. Comprehension: poor. Always losing things. Will car pick up driver a pack of cards and will ask [...] Maternal Grandmother Family Status Relation Name Status MGM (Not Specified) Objective Vitals: 02/25/24 0853 BP: [...] asymmetry. Motor: Motor function is intact. Coordination: Nmjoev-Copo-Mvsjat Test normal. Psychiatric: Attention and Perception: Attention [...] independently reviewed the Darius Cognitive Assessment from 02/25/2024. 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 Activities: watches tv, spends time with cat >>02/17/22 just went on vacation, walks in condo, plays cards, plays piano, visiting friends >>08/22/22 outside, TV, cat sits out with neighbor, mandaen, >>02/26/23 walks, visits with neighbors, mandaen, kids' sports games, just came back from vacation >>10/22/23 same >>02/25/24 visits with aide, getting to physical therapy, going on walks Exercise: walks around her house >>02/17/22 walking, weights >>08/22/22 walks around the condo or in her neighborhood >>02/26/23 walks >>10/22/23 walks >>02/25/24 walks, physical therapy Finances: meeting soon with Medicaid attorney at law Healthcare Power of Public Health Teacher: Yes, Daughter Elizabeth Financial Power of Public Health Teacher: Yes, Daughter Elizabeth Living Will: Yes Guardian:No [...] sees her sometimes >>02/25/24 has 24 hour care management coordinator, Xochitl who is living with her, another [...] members. SW suggested that daughter check out www.[employer]. [employer] to check out any other products that [...] will do fresh foods, etc, goes to [employer] >>02/26/23 patient buys her dry products at [employer], daughter picks up the rest >>10/22/23 same [...] same >>10/22/23 same >>02/25/24 Xochitl hampton cleans Medications [] [] [x] Daughter not [...] same >>02/25/24 same documented in this encounter [facility] 02-01-2024 History of Present illness Narrative Radiology [...] PATIENT PRESENTS WITH AN IMPLANTABLE OR ATTACHED DIRECTOR MACHINE: No RADIOLOGY DEPARTMENT: MR; Exam(s) Completed: Head: Routine Brain PERIPHERAL IV DATA: Not applicable SIGNED BY: RT Rdaha(R) February 01, 2024 10:07 AM documented in this encounter [facility] 01-26-2024 Telephone encounter Note I spoke to pravin Johnson. I read her the instructions from Dr Bright verbatim. She understands she needs to be seen by PCP first available. I also got [facility] 02/25[facility]2024. [facility] 01-26-2024 Miscellaneous Notes I spoke to pravin Johnson. I read her the instructions from Dr Bright verbatim. She understands she needs to be seen by PCP first available. I also got patient scheduled with [facility] 02/25/2024. Noted thank you. Please have office schedule an appointment with us. Also should be seen by PCP to rule out medical causes of increased anxiety Late entry. Call returned at time of page. I spoke with [facility] nurse Yuyd. I asked Yudy (nurse) to call patient's [...] Social Work(er) Yesica Coats. Sending to our casting wheel operator Yoselyn to please schedule in the next 2-[address] Castillo if Dr. Castillo has any openings. Otherwise, can offer patient to see a different provider who has openings sooner if patient/family amenable. S: Patient's Daughter Elizabeth spoke with [facility] nurse regarding update to previous TE B: [...] states she was in a complete panic. [facility] Police took her to her home [...] very rapidly. R: Secure chat sent to economics instructor Provider Dr Bright who called and advised that Patient have increased supervision at home, if Daughter Elizabeth feels the Patient is a risk to herself or others she should call 911 and have the Patient taken to [facility] emergency room, also advised Elizabeth that they [...] symptoms. S: Patient's daughter, Elizabeth spoke with [facility] nurse regarding anxiety and fear. B: Onset [...] the triager Protocols used: Anxiety and Panic [id number] documented in this encounter [facility] 01-26-2024 Telephone encounter Note Noted thank you. Please have office schedule an appointment with us. Also should be seen by PCP to rule out medical causes of increased anxiety [facility] 01-25-2024 Telephone encounter Note Late entry. Call returned at time of page. I spoke with [facility] nurse Yudy. I asked Yudy (nurse) to [...] Social Work(er) Yesica Coats. Sending to our casting wheel operator Yoselyn to please schedule in the next 2-[address] Castillo if Dr. Castillo has any openings. Otherwise, can offer patient to see a different provider who has openings sooner if patient/family amenable. [facility] Work Phone: 01-25-2024 Telephone encounter Note S: Patient's Daughter Elizabeth spoke with [facility] nurse regarding update to previous TE B: [...] states she was in a complete panic. [facility] Police took her to her home [...] very rapidly. R: Secure chat sent to economics instructor Provider Dr Bright who called and advised that Patient have increased supervision at home, if Daughter Elizabeth feels the Patient is a risk to herself or others she should call 911 and have the Patient taken to [facility] emergency room, also advised Elizabeth that they need to call PCP Dr Cook and have Patient evaluated. Elizabeth understands care advice. She is asking if Dr Castillo could follow up with her and schedule an appointment to see her. Message to Provider, please advise. No further needs at this time. Patient instructed to call back with new or worsening symptoms. T [facility] 01-25-2024 Telephone encounter Note Error [facility] 01-25-2024 Miscellaneous Notes Error documented in this encounter [facility] 01-25-2024 Telephone encounter Note S: Patient's daughter, Elizabeth spoke with [facility] nurse regarding anxiety and fear. B: Onset [...] the triager Protocols used: Anxiety and Panic [id number] [facility] 12-28-2023 Telephone encounter Note Request for refill received from [facility] Last appointment: 10/22/2024 Next appointment: recall Pharmacy confirmed: [x] Yes [] No [facility] 12-28-2023 Miscellaneous Notes Request for refill received from [facility] Last appointment: 10/22/2024 Next appointment: recall Pharmacy confirmed: [x] Yes [] No documented in this encounter [facility] 10-22-2023 History of Present illness Narrative Images from the original note were not included. [facility] [address] [facility] [address] Dept: [phone] Dept Loc: [phone] Visit type: [facility] Follow Up Visit Reason for Visit: Dementia Visit Date: 10/22/2023 Assessment and Plan 1. Alzheimer's dementia without behavioral disturbance (HCC) - [facility] Occupational Therapy 2. History of depression 3. Driving safety issue - [facility] Occupational Therapy 4. Vitamin B12 deficiency [...] Disease, hypertension, depression who presents to the [facility] for a follow-up visit. 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 -She had one episode of [...] of "dementia" is mentioned -Walks around her [place] for exercise. She enjoys this. History [...] 911. Reviewed progress notes completed by ALFREDO RUEDA) [...] Maternal Grandmother Family Status Relation Name Status MGM (Not Specified) Objective Vitals: 10/22/23 1458 BP: [...] PHQ-9 score: 0 I independently reviewed the Darius Cognitive Assessment from 10/22/2023. Test scanned in [...] here close to daughter in 2018 from [place] >>02/17/22 same >>02/26/23 same >>10/22/23 same Household [...] of education: some college Occupation: retired from [employer] Activities: watches tv, spends time with cat >>02/17/22 just went on vacation, walks in condo, plays cards, plays piano, visiting friends >>08/22/22 outside, TV, cat sits out with neighbor, mandaen, >>02/26/23 walks, visits with neighbors, mandaen, kids' sports games, just came back from vacation >>10/22/23 same Exercise: walks around her house >>02/17/22 walking, weights >>08/22/22 walks around the condo or in her neighborhood >>02/26/23 walks >>10/22/23 walks Finances: meeting soon with Medicaid attorney at law Healthcare Power of Public Health Teacher: Yes, Daughter Elizabeth Financial Power of Public Health Teacher: Yes, Daughter Elizabeth Living Will: Yes Guardian:No Code Status: Full Code Primary Caregiver: daughterElizabeth Current care plan/supervision: daughter sees patient 2x/week, [...] members. SW suggested that daughter check out www[employer]. [employer] to check out any other products that [...] will do fresh foods, etc, goes to [employer] >>02/26/23 patient buys her dry products at [employer], daughter picks up the rest >>10/22/23 same [...] same >>10/22/23 same documented in this encounter [facility] 10-22-2023 Instructions Gunjan Castillo MD - 10/22/2023 2:45 PM EST Restart Vitamin B12 pill. This can be picked up Over The Counter. Can take 500 mcg or 1000 mcg once a day. Please get your vitamin b12 levels rechecked in one month. documented in this encounter [facility] 09-24-2023 History of Present illness Narrative RADIOLOGY [...] 1355 PATIENT DISCHARGED TO: [facility]ulatory patient[facility]. A Diagnostic radioactive procedure has taken place, with no further precautions necessary other than routine body substance precautions. More information regarding radiation safety can be found using this link: [email or web address] [email or web address]%20Nuclear %20Medicine%20Procedures.[email or web address] SIGNATURE: RT Tae(R) PATIENT NAME: Cyndee Vital DATE: September 24, 2023 TIME: 2:02 PM PAGER/CONTACT #: documented in this encounter [facility] 09-17-2023 Miscellaneous Notes CYNDEE VITAL \\ [id number] DOS: 09/24/23 PET INJ: 1430 PET 2: 1530 APPT NOTES: DO NOT SUBMIT AUTH TO INSURANCE, BILLED TO RESEARCH STUDY IAINA [id number] PET BRAIN AMYVID RESEARCH STUDY TRANSMITTAL FORM PET 2 ONLY documented in this encounter [facility] 07-30-2023 Miscellaneous Notes Opend in error documented in this encounter [facility] 07-03-2023 Telephone encounter Note (1) Medication name: [...] of last refill (see medication tab): 02.19.[address] [facility] 07-03-2023 Miscellaneous Notes (1) Medication name: Sertraline [...] medication tab): 02.19.22 documented in this encounter [facility] 04-13-2023 Instructions Celina Levy MD - 04/13/2023 [...] Simple Zinc oxide documented in this encounter [facility] 04-13-2023 History of Present illness Narrative Vitals not obtained per provider's instructions. Patient was identified by name and date of . Dropati Crichlow Why are you seeing the director of food and nutrition services (doctor) today? mole What specific location on [...] Tobacco Use? 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: watches tv, spends time with cat >>02/17/22 just went on vacation, walks in condo, plays cards, plays piano, visiting friends >>08/22/22 outside, TV, cat sits out with neighbor, mandaen, >>02/26/23 walks, visits with neighbors, mandaen, kids' sports games, just came back from vacation Exercise: walks around her house >>02/17/22 walking, weights >>08/22/22 walks around the condo or in her neighborhood >>02/26/23 walks Finances: meeting soon with Medicaid attorney at law Healthcare Power of Public Health Teacher: Yes, Daughter Elizabeth Financial Power of Public Health Teacher: Yes, Daughter Elizabeth Living Will: Yes Guardian:No [...] members. SW suggested that daughter check out www[employer]. [employer] to check out any other products that [...] will do fresh foods, etc, goes to [employer] >>02/26/23 patient buys her dried products at [employer], daughter picks up the rest Meal prep [...] from the original note were not included. [facility] [address] [address] Dept: [phone] Dept Loc: [phone] Visit type: [facility] Follow Up Visit Reason for Visit: [...] Disease, hypertension, depression who presents to the [facility] for a follow-up visit. The patient [...] from building up again. -She went to [place] with the family on a trip. She [...] the house a lot. Sometimes around the [place] Reviewed progress notes completed by ALFREDO [...] Maternal Grandmother Family Status Relation Name Status MGM (Not Specified) Objective Vitals: 02/26/23 1546 BP: 112/72 BP Location: Right arm Patient Position: Sitting Pulse: 58 Temp: (!) 35.9 C (96.6 F) Weight: 114 lb 12.8 oz (52.1 kg) Wt Readings from Last 3 Encounters: 02/26/23 114 lb 12.8 oz (52.1 kg) 02/17/22 115 lb 6.4 oz (52.3 kg) 11/18/21 114 lb 12.8 oz (52.1 kg) Physical [...] exam and/or evaluation documented in this encounter [facility] 02-26-2023 Instructions Gunjan Castillo MD - 02/26/2023 [...] to your pharmacy. documented in this encounter [facility] 02-19-2023 History of Present illness Narrative RADIOLOGY [...] 1423 PATIENT DISCHARGED TO: Ambulatory patient, left [place] department area. A Diagnostic radioactive procedure has taken place, with no further precautions necessary other than routine body substance precautions. More information regarding radiation safety can be found using this link: [email or web address] [email or web address]%20Nuclear %20Medicine%[email or web address] SIGNATURE: RT Amanda(R) PATIENT NAME: Cyndee Vital DATE: February 19, 2023 TIME: 2:37 PM PAGER/CONTACT #: documented in this encounter [facility] 02-19-2023 Telephone encounter Note Rescheduled. [facility] 02-19-2023 Miscellaneous Notes Rescheduled. DONNA Castillo Name of caller: Elizabeth Contact phone number: [phone] Relationship to Patient: patient daughter Provider: Dr. Castillo Practice: Senior Services Chief Complaint/Reason for Call: The patient and daughter is at the [facility] getting a PET Scan because the patient [...] their call: Yes documented in this encounter [facility] 02-19-2023 Telephone encounter Note DONNA Castillo [facility] 02-19-2023 Telephone encounter Note Name of caller: Elizabeth Contact phone number: [phone] Relationship to Patient: patient daughter Provider: Dr. Castillo Practice: Senior Services Chief Complaint/Reason for Call: The patient and daughter is at the [facility] getting a PET Scan because the patient is part of a trail program. They will not be able to make it to the patient appointment at 3: 45 pm today. Please call the patient daughter to reschedule the patient appointment. Best time of day caller can be reached: any Patient advised that office/PCP has 24-48 business hours to return their call: Yes [facility] 02-19-2023 Miscellaneous Notes CYNDEE VITAL \\ [id number] DOS: 02/19/23 PET INJ: 1445 PET 2: 1545 APPT NOTES: ANU [id number] PET BRAIN AMYVID RESEARCH STUDY TRANSMITTAL FORM PET 2 ONLY documented in this encounter [facility] 02-28-2022 History of Present illness Narrative Images from the original note were not included. [facility] SECTION OF [facility] CARDIOLOGY [facility] OUTPATIENT VISIT DATE February 28, 2022 PRIMARY CARE PHYSICIAN: Emi Cook (Abi) [address] [facility] [address] [place] [address] HISTORY OF PRESENT ILLNESS: Ms. Vital is [...] Department of Medicine and Division of Cardiology, [facility] Asset Protection Greeterauxiliary equipment tender [facility] Asset Protection Greeter of Congest[facility] Failure [facility] Cardiology Office Asset Protection Greeter [facility] Staff Mold Construction Supervisor, Rosemary and Kristina Johnston Department of Cardiovascular Medicine/Heart and Vascular [place], [facility] Clinical Thermodynamics Teacher Profressor of Medicine, [facility] Please note: This note has been produced using speech recognition software and may contain errors related to that system including lianet, punctuation, spelling, words, gender and phrases that may be inappropriate. documented in this encounter [facility] 10-06-2019 History of Past i llness Narrative [...] of this encounter (statuses as of 02/28/2022) [facility] History of Past illness Narrative* Problem Noted [...] of this encounter (statuses as of 01/22/2023) [facility] History of Past illness Narrative* Problem Noted [...] of this encounter (statuses as of 02/20/2023) [facility] History of Past illness Narrative* Problem Noted [...] of this encounter (statuses as of 02/20/2023) [facility] History of Past illness Narrative* Problem Noted [...] of this encounter (statuses as of 07/30/2023) [facility] History of Past illness Narrative* Problem Noted [...] of this encounter (statuses as of 09/17/2023) [facility] History of Past illness Narrative* Problem Noted [...] of this encounter (statuses as of 09/25/2023) [facility] History of Past illness Narrative* Problem Noted [...] of this encounter (statuses as of 09/25/2023) [facility] History of Past illness Narrative* Problem Noted [...] of this encounter (statuses as of 01/27/2024) [facility] History of Past illness Narrative* Problem Noted [...] of this encounter (statuses as of 02/02/2024) [facility] No data available for this section [place] Evaluation note* Diagnosis PSVT (paroxysmal supraventricular tachycardia) (HCC)- Primary Paroxysmal supraventricular tachycardia PVC (premature ventricular contraction) Other premature beats Pure hypercholesterolemia documented in this encounter [facility] note* Diagnosis Examination for normal comparison or control in clinical research- Primary Examination of participant in clinical trial documented [facility]* Diagnosis Onset Date Resolution Status Acute buttock pain acute Hyperlipidemia acute Shingles acute [facility] Work Phone: Evaluation note* Diagnosis Examination for normal comparison or control in clinical research Examination of participant in clinical trial documented in this encounter [facility] note* Diagnosis Alzheimer's dementia without behavioral disturbance (HCC)- Primary Alzheimer's disease Depression, unspecified depression type documented [facility]* Diagnosis Seborrheic keratoses- Primary Ephelides Other dyschromia Lentigines Other dyschromia Multiple nevi [facility] Diagnosis Depression, unspecified depression type [facility] [facility] note* Diagnosis Memory changes Memory loss documented in this encounter [facility] note* Diagnosis Alzheimer's dementia without behavioral disturbance (HCC)- Primary Alzheimer's disease History of depression Personal history of other mental disorder Driving safety issue Vitamin B12 deficiency Other B-complex deficiencies documented in this encounter [facility] note* Diagnosis Examination for normal comparison or control in clinical research- Primary Examination of participant in clinical trial documented in this encounter [facility] note* Diagnosis Onset Date Resolution Status Alzheimer's dementia acute Sciatica, left side acute Alzheimer's dementia acute Change in mental status acut e Panic attacks acute Sciatica, left side acute [facility] Work Phone: Evaluation note* Diagnosis Examination for normal comparison or control in clinical research Examination of participant in clinical trial documented in this encounter [facility] note* Diagnosis Alzheimer's dementia with behavioral disturbance (HCC)- Primary Alzheimer's disease documented in this encounter [facility] note* Diagnosis Examination of participant in clinical trial- Primary documented in this encounter [facility] note* Diagnosis Examination of participant or control in clinical research- Primary Examination of participant in clinical trial documented in this encounter [facility] note* Diagnosis Examination of participant or control in clinical research- Primary Examination of participant in clinical trial documented in this encounter [facility] note* Diagnosis Examination of participant or control in clinical research Examination of participant in clinical trial documented in this encounter [facility] note* Diagnosis Depression, unspecified depression type documented in this encounter [facility] note* Diagnosis Alzheimer's dementia with behavioral disturbance (HCC)- Primary Alzheimer's disease documented in this encounter [facility] note* Diagnosis Examination of participant or control in clinical research Examination of participant in clinical trial documented in this encounter [facility] note* Diagnosis 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 Irregular heart rate Primary hypertension Unspecified essential hypertension documented in this encounter [facility] note* Diagnosis Irregular heart rate documented in this encounter [facility] note* Diagnosis 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 Irregular heart rate Primary hypertension Unspecified essential hypertension Irregular heart rate documented in this encounter [facility] Discharge instructions No data available for this section [facility] [facility] for referral (narrative)* Outpatient Procedure (Routine) - Closed Specialty Diagnoses / Procedures Referred By Contac t Referred To Contact [facility] Diagnoses PSVT (paroxysmal supraventricular tachycardia) (HCC) Procedures ECG COMPLETE ECG ROUTINE ECG W/LEAST 12 LDS W/I&R Marcus Sorensen DO [address] [place] [address] [facility] [address] [place], [place] [id number] Referral ID Status Reason Start Date Expiration Date V isits Requested Visits Authorized [id number] Closed Auto-Generate d Referral 02/28/2022 02/28/2023 1 1 [facility] for referral (narrative)* Diagnostic Procedure Only (Routine) - Pending Review Specialty Diagnoses / Procedures Referred By Contac t Referred To Contact MOLECULAR & FUNCTIONAL IMAGING Diagnoses Examination for normal comparison or control in clinical research Procedures NM PET/CT BRAIN PLAQUE IMAGING PET IMAGING CT FOR ATTENUATION LIMITED AREA Amilcar Bradford MD, MD, PhD [address] [place] [address] Molecular & Functional Imaging [address] [place], [place] [id number] Referral ID Status Reason Start Date Expiration Date Visits Requested Visits Authorized [id number] Pending Review Auto-Generat ed Referral 01/22/2023 02/20/2024 1 1 [facility] for referral (narrative)* Diagnostic Procedure Only (Routine) - Closed Specialty Diagnoses / Procedures Referred By Contac t Referred To Contact MOLECULAR & FUNCTIONAL IMAGING Diagnoses Examination for normal comparison or control in clinical research Procedures NM PET/CT BRAIN PLAQUE IMAGING PET IMAGING CT FOR ATTENUATION LIMITED AREA Amilcar Bradford MD, MD, PhD [address] [place] [address] Molecular & Functional Imaging [address] [place], [place] [id number] Referral ID Status Reason Start Date Expiration Date V isits Requested Visits Authorized [id number] Closed Auto-Generate d Referral 01/22/2023 02/20/2024 1 1 [facility] for referral (narrative)* Diagnostic Procedure Only (Routine) - Closed Specialty Diagnoses / Procedures Referred By Rufino t Referred To Contact MOLECULAR & FUNCTIONAL IMAGING Diagnoses Memory changes Procedures NM PET/CT BRAIN PLAQUE IMAGING PET IMAGING CT FOR ATTENUATION LIMITED AREA Amilcar Bradford MD, MD, PhD [address] [place] [address] Molecular & Functional Imaging [address] [place] [address] Referral ID Status Reason Start Date Expiration Date V isits Requested Visits Authorized [id number] Closed Auto-Generate d Referral 09/15/2023 10/13/2024 1 1 [facility] for referral (narrative)* Consultation (Routine) - Pending Review Specialty Diagnoses / Procedures Referred By Rufino Referred To Contact Occupational Therapy / Geriatric Medicine Diagnoses Alzheimer's dementia without behavioral disturbance (HCC) Driving safety issue Procedures [place] OFFICE/OUTPATIENT [facility] 60-74 MINUTES Gunjan Castillo MD [address] [place] [address] [address] [facility] [address] [place] [address] Referral ID Status Reason Start Date Expiration Date Visits Requested Visits Authorized [id number] Pending Review Specialty Services Required 3 10/22/2024 99 99 [facility] for referral (narrative)* Diagnostic Procedure Only (Routine) - Pending Review Specialty Diagnoses / Procedures Referred By Rufino estrella Referred To Contact MOLECULAR & FUNCTIONAL IMAGING Diagnoses Examination of participant or control in clinical research Procedures NM PET/CT BRAIN PLAQUE IMAGING PET IMAGING CT FOR ATTENUATION LIMITED AREA Amilcar Bradford MD, , PhD [address] [place] [address] Molecular & Functional Imaging [address] [place] [address] Referral ID Status Reason Start Date Expiration Date Visits Requested Visits Authorized [id number] Pending Review Auto-Generat ed Referral 04/16/2024 05/15/2025 1 1 [facility] for referral (narrative)* Diagnostic Procedure Only (Routine) - New Request Specialty Diagnoses / Procedures [facility] Referred To Contact MOLECULAR & FUNCTIONAL IMAGING Diagnoses Examination of participant or control in clinical research Procedures NM PET/CT BRAIN PLAQUE IMAGING PET IMAGING CT FOR ATTENUATION LIMITED AREA Amilcar Bradford MD, , PhD [address] [place] [address] Molecular & Functional Imaging [address] [place] [address] Referral ID Status Reason Start Date Expiration Date Visits Requested Visits Authorized [id number] New Request Auto-Generat ed Referral 09/15/2024 10/14/2025 1 1 [facility] for visit Narrative* Diagnostic Procedure Only (Routine) - Closed Specialty Diagnoses / Procedures Referred By Contac Referred To Contact MOLECULAR & FUNCTIONAL IMAGING Diagnoses Examination for normal comparison or control in clinical research Procedures NM PET/CT BRAIN PLAQUE IMAGING PET IMAGING CT FOR ATTENUATION LIMITED AREA Amilcar Bradford MD, MD, PhD [address] [place] [address] Molecular & Functional Imaging [address] [place] [address] Referral ID Status Reason Start Date Expiration Date V isits Requested Visits Authorized [id number] Closed Auto-Generate d Referral 01/22/2023 02/20/2024 1 1 [facility] for visit Narrative* Diagnostic Procedure Only (Routine) - Closed Specialty Diagnoses / Procedures Referred By Rufino estrella Referred To Contact MOLECULAR & FUNCTIONAL IMAGING Diagnoses Memory changes Procedures NM PET/CT BRAIN PLAQUE IMAGING PET IMAGING CT FOR ATTENUATION LIMITED AREA Amilcar Bradford MD, MD, PhD [address] [place] [phone] Molecular & Functional Imaging [address] [place] [address] Referral ID Status Reason Start Date Expiration Date V isits Requested Visits Authorized [id number] Closed Auto-Generate d Referral 09/15/2023 10/13/2024 1 1 [facility] for visit Narrative* Diagnostic Procedure Only (Routine) - Closed Specialty Diagnoses / Procedures Referred By Rufino estrella Referred To Contact MOLECULAR & FUNCTIONAL IMAGING Diagnoses Examination of participant or control in clinical research Procedures NM PET/CT BRAIN PLAQUE IMAGING PET IMAGING CT FOR ATTENUATION LIMITED AREA Amilcar Bradford MD, MD, PhD [address] [place] [address] Molecular & Functional Imaging [address] [place] [address] Referral ID Status Reason Start Date Expiration Date V isits Requested Visits Authorized [id number] Closed Auto-Generate d Referral 04/16/2024 05/15/2025 1 1 [facility] for visit Narrative* Diagnostic Procedure Only (Routine) - Closed Specialty Diagnoses / Procedures Referred By Rufino estrella Referred To Contact MOLECULAR & FUNCTIONAL IMAGING Diagnoses Examination of participant or control in clinical research Procedures NM PET/CT BRAIN PLAQUE IMAGING PET IMAGING CT FOR ATTENUATION LIMITED AREA Amilcar Bradford MD MD, PhD [address] [place] [address] Molecular & Functional Imaging [address] [place] [address] Referral ID Status Reason Start Date Expiration Date V isits Requested Visits Authorized [id number] Closed Auto-Generate d Referral 09/15/2024 10/14/2025 1 1 [facility] Summary Purpose Family History No Family History Records Found Relationship Condition Age at Onset Recorded Date/T debbie mother Malignant neoplasm Unknown Malignant neoplasm of ovary Unknown daughter Malignant neoplasm of breast Unknown uncle Cardiac disease Unknown Advance Directives No Advanced Directives Records FoundDocuments on File Type Date Recorded 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 Advance Directive(s) 10/06/2019 2:19 PM Documents on File Type Date Recorded 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 ACP-Advance Directive 11/11/2021 Chief Complaint and Reason for Visit Chief Complaint (L) butt cheek painf ul Reason for Visit Acute buttock pain Hyperlipidemia Shingles Chief Complaint Lower back pain Urinary tract infection Reason for Visit Alzheimer's dementia Sciatica, left side Alzheimer's dementia Change in mental status Panic attacks Sciatica, left side Reason for Referral Specialty Diagnoses / Procedures Referred By Contac t Referred To Contact MR IMAGING Diagnoses Examination for normal comparison or control in clinical research Procedures MRI BRAIN WO IVCON MRI BRAIN BRAIN STEM W/O CONTRAST MATERIAL Amilcar Bradford MD, MD, PhD [address] [place] [address] [id number] Referral ID Status Reason Start Date Expiration Date Visits Requested Visits Authorized [id number] Pending Review Auto-Generat ed Referral 01/27/2024 02/24/2025 1 1 Additional Source Comments INFORMATION SOURCE (unrecogn ized section and content) DATE CREATED AUTHOR 08/21/2021 [facility] ([place] DATE CREATED AUTHOR AUTHOR'S ORGANIZ ATION 11/15/2021 [facility] DATE CREATED AUTHOR AUTHOR'S ORGANIZ ATION 08/30/2022 [facility] DATE CREATED AUTHOR AUTHOR'S ORGANIZ ATION 04/18/2023 [facility] DATE CREATED AUTHOR AUTHOR'S ORGANIZ ATION 09/01/2024 [facility] DATE CREATED AUTHOR AUTHOR'S ORGANIZ ATION 02/25/2025 [facility] DATE CREATED AUTHOR AUTHOR'S ORGANIZ ATION 03/17/2025 [facility] DATE CREATED AUTHOR AUTHOR'S ORGANIZ ATION 05/31/2025 [facility] Source Comments (unrecognize d section and content) In the event this informatio n is protected by the Federal Confidentiality of Alcohol and Drug Abuse Patient Records regulations: The Federal rules restrict any use of the information to criminally investigate or prosecute any alcohol or drug abuse patient.[facility] the event this information is protected by the Federal Confidentiality of Alcohol and Drug Abuse Patient Records regulations: The Federal rules restrict any use of the information to criminally investigate or prosecute any alcohol or drug abuse patient.[facility] the event this information is protected by the Federal Confidentiality of Alcohol and Drug Abuse Patient Records regulations: The Federal rules restrict any use of the information to criminally investigate or prosecute any alcohol or drug abuse patient.[facility] Hospital[facility] the event this information is protected by the Federal Confidentiality of Alcohol and Drug Abuse Patient Records regulations: The Federal rules restrict any use of the information to criminally investigate or prosecute any alcohol or drug abuse patient.[facility] Hospital[facility] the event this information is protected by the Federal Confidentiality of Alcohol and Drug Abuse Patient Records regulations: The Federal rules restrict any use of the information to criminally investigate or prosecute any alcohol or drug abuse patient.[facility] Hospital[facility] the event this information is protected by the Federal Confidentiality of Alcohol and Drug Abuse Patient Records regulations: The Federal rules restrict any use of the information to criminally investigate or prosecute any alcohol or drug abuse patient.[facility] HospitalIn the event this information is protected by the Federal Confidentiality of Alcohol and Drug Abuse Patient Records regulations: The Federal rules restrict any use of the information to criminally investigate or prosecute any alcohol or drug abuse patient.[facility] HospitalIn the event this information is protected by the Federal Confidentiality of Alcohol and Drug Abuse Patient Records regulations: The Federal rules restrict any use of the information to criminally investigate or prosecute any alcohol or drug abuse patient.[facility] the event this information is protected by the Federal Confidentiality of Alcohol and Drug Abuse Patient Records regulations: The Federal rules restrict any use of the information to criminally investigate or prosecute any alcohol or drug abuse patient.[facility] the event this information is protected by the Federal Confidentiality of Alcohol and Drug Abuse Patient Records regulations: The Federal rules restrict any use of the information to criminally investigate or prosecute any alcohol or drug abuse patient.[facility] Hospital[facility] the event this information is protected by the Federal Confidentiality of Alcohol and Drug Abuse Patient Records regulations: The Federal rules restrict any use of the information to criminally investigate or prosecute any alcohol or drug abuse patient.[facility] HospitalIn the event this information is protected by the Federal Confidentiality of Alcohol and Drug Abuse Patient Records regulations: The Federal rules restrict any use of the information to criminally investigate or prosecute any alcohol or drug abuse patient.[facility] Hospital[facility] the event this information is protected by the Federal Confidentiality of Alcohol and Drug Abuse Patient Records regulations: The Federal rules restrict any use of the information to criminally investigate or prosecute any alcohol or drug abuse patient.[facility] HospitalIn the event this information is protected by the Federal Confidentiality of Alcohol and Drug Abuse Patient Records regulations: The Federal rules restrict any use of the information to criminally investigate or prosecute any alcohol or drug abuse patient.[facility] HospitalIn the event this information is protected by the Federal Confidentiality of Alcohol and Drug Abuse Patient Records regulations: The Federal rules restrict any use of the information to criminally investigate or prosecute any alcohol or drug abuse patient.[facility] HospitalIn the event this information is protected by the Federal Confidentiality of Alcohol and Drug Abuse Patient Records regulations: The Federal rules restrict any use of the information to criminally investigate or prosecute any alcohol or drug abuse patient.[facility] HospitalIn the event this information is protected by the Federal Confidentiality of Alcohol and Drug Abuse Patient Records regulations: The Federal rules restrict any use of the information to criminally investigate or prosecute any alcohol or drug abuse patient.[facility] HospitalIn the event this information is protected by the Federal Confidentiality of Alcohol and Drug Abuse Patient Records regulations: The Federal rules restrict any use of the information to criminally investigate or prosecute any alcohol or drug abuse patient.[facility] HospitalIn the event this information is protected by the Federal Confidentiality of Alcohol and Drug Abuse Patient Records regulations: The Federal rules restrict any use of the information to criminally investigate or prosecute any alcohol or drug abuse patient.[facility] HospitalIn the event this information is protected by the Federal Confidentiality of Alcohol and Drug Abuse Patient Records regulations: The Federal rules restrict any use of the information to criminally investigate or prosecute any alcohol or drug abuse patient.[facility] HospitalIn the event this information is protected by the Federal Confidentiality of Alcohol and Drug Abuse Patient Records regulations: The Federal rules restrict any use of the information to criminally investigate or prosecute any alcohol or drug abuse patient.[facility] HospitalIn the event this information is protected by the Federal Confidentiality of Alcohol and Drug Abuse Patient Records regulations: The Federal rules restrict any use of the information to criminally investigate or prosecute any alcohol or drug abuse patient.[facility] HospitalIn the event this information is protected by the Federal Confidentiality of Alcohol and Drug Abuse Patient Records regulations: The Federal rules restrict any use of the information to criminally investigate or prosecute any alcohol or drug abuse patient.[facility] Reason for Visit (unrecogniz ed section and content) Reason Comments Radiology NM Specialty Diagnoses / Procedures Referred By Contac t Referred To Contact MOLECULAR & FUNCTIONAL IMAGING Diagnoses Examination of participant or control in clinical research Procedures NM PET/CT BRAIN PLAQUE IMAGING PET IMAGING CT FOR ATTENUATION LIMITED AREA Amilcar Bradford MD, MD, PhD [address] [place] [address] Molecular & Functional Imaging [address] [place] [id number] Referral ID Status Reason Start Date Expiration Date V isits Requested Visits Authorized [id number] Closed Auto-Generate d Referral 09/15/2024 10/14/2025 1 [...] MRI Specialty Diagnoses / Procedures Referred By Marieac t Referred To Contact MR IMAGING Diagnoses Examination for normal comparison or control in clinical research Procedures MRI BRAIN WO IVCON MRI BRAIN BRAIN STEM W/O CONTRAST MATERIAL Amilcar Bradford MD, , PhD [address] [place] [id number] Mr Imaging [id number] Referral ID Status Reason Start Date Expiration Date V isits Requested Visits Authorized [id number] Closed Auto-Generate d Referral 01/27/2024 02/24/2025 1 1 Reason Onset Date Comments Med Refill 07/22/2024 Reason Comments Returning Patient's Call Reason Onset Date Comments Cancelled Appointment 02/19/2023 Cancel and reschedule Reason Onset Date Comments Med Refill 01/24/2025 Reason Comments Radiology MRI Research brain Reason Comments Memory Loss Reason Comments Radiology MRI Scanned under resear number. Care Teams (unrecognized sec tion and content) Beef Lugger Relationship Specialty Start Date End Date Emi Cook ROAD CUTTER.COMPUTER SYSTEMS TECHNOLOGY INSTRUCTOR [address] [facility] [address] [place] [address] PCP - General Family Practice 10/06/19 Beef Lugger Relationship Specialty Start Date End Date Emi Cook [address] [facility] [place] [address] PCP - General Nurse Practitioner 09/10/21 Beef Lugger Relationship Specialty Start Date End Date Emi Cook, ROAD CUTTER.COMPUTER SYSTEMS TECHNOLOGY INSTRUCTOR [address] [facility] [address] [place], [place] [phone] PCP - General Family Medicine 10/06/19 Team Status: Active Member Role Status Dates Emi Cook ENVIRONMENTAL MAINTENANCE WORKER, ENVIRONMENTAL MAINTENANCE WORKER-C Primary Care Provider Active Team Status: Inactive Member Role Status Dates Emi Cook ENVIRONMENTAL MAINTENANCE WORKER, ENVIRONMENTAL MAINTENANCE WORKER-C Primary Care Pr ovider, Attending Provider, Referring Provider Active Team Status: Inactive Member Role Status Dates Emi Cook ENVIRONMENTAL MAINTENANCE WORKER, ENVIRONMENTAL MAINTENANCE WORKER-C Primary Care Provider, Attend ing Provider Active Beef Lugger Relationship Specialty Start Date End Date Emi Cook, ROAD CUTTER.COMPUTER SYSTEMS TECHNOLOGY INSTRUCTOR [address] [facility] [address] [place] [phone] PCP - General Family Medicine 10/06/19 Beef Lugger Relationship Specialty Start Date End Date Emi Cook, ROAD CUTTER.COMPUTER SYSTEMS TECHNOLOGY INSTRUCTOR [address] [facility] [address] [place] [phone] PCP - General Family Medicine 10/06/19 Beef Lugger Relationship Specialty Start Date End Date Emi Cook ROAD CUTTER.COMPUTER SYSTEMS TECHNOLOGY INSTRUCTOR [address] [phone] PCP - General Family Medicine 10/06/19 Beef Lugger Relationship Specialty Start Date End Date Emi Cook [address] [place] [address] PCP - General 09/10/21 Beef Lugger Relationship Specialty Start Date End Date Emi Cook [address] [place] [address] PCP - General 09/10/21 Beef Lugger Relationship Specialty Start Date End Date Emi Cook, ROAD CUTTER.COMPUTER SYSTEMS TECHNOLOGY INSTRUCTOR [address] [facility] [address] [place] [address] [phone] PCP - General Family Medicine 10/06/19 Beef Lugger Relationship Specialty Start Date End Date Emi Cook, ROAD CUTTER.COMPUTER SYSTEMS TECHNOLOGY INSTRUCTOR [address] [place], [place] [phone] PCP - General Family Medicine 10/06/19 Beef Lugger Relationship Specialty Start Date End Date Emi Cook, ROAD CUTTER.COMPUTER SYSTEMS TECHNOLOGY INSTRUCTOR [address] [place], [place] [phone] PCP - General Family Medicine 10/06/19 Beef Lugger Relationship Specialty Start Date End Date Emi Cook, ROAD CUTTER.COMPUTER SYSTEMS TECHNOLOGY INSTRUCTOR [address] [place], [place] [phone] PCP - General Family Medicine 10/06/19 Beef Lugger Relationship Specialty Start Date End Date Cook, Emi [address] [place] [address] PCP - General 09/10/21 Beef Lugger Relationship Specialty Start Date End Date Cook, Dora [address] [place] [address] PCP - General 09/10/21 Beef Lugger Relationship Specialty Start Date End Date Emi Cook [address] [place] [address] PCP - General Nurse Practitioner 01/25/24 Beef Lugger Relationship Specialty Start Date End Date Emi Cook, ROAD CUTTER.COMPUTER SYSTEMS TECHNOLOGY INSTRUCTOR [address] [place], [place] [id number] PCP - General Family Medicine 10/06/19 Beef Lugger Relationship Specialty Start Date End Date Emi Cook [address] [place], [place] [id number] PCP - General Nurse Practitioner 01/25/24 Beef Lugger Relationship Specialty Start Date End Date Emi Cook, ROAD CUTTER.COMPUTER SYSTEMS TECHNOLOGY INSTRUCTOR [address] [place], [place] [phone] PCP - General Family Medicine 10/06/19 Beef Lugger Relationship Specialty Start Date End Date Emi Cook [address] [place], [place] [phone] PCP - General Nurse Practitioner 01/25/24 Beef Lugger Relationship Specialty Start Date End Date Emi Cook, ROAD CUTTER.COMPUTER SYSTEMS TECHNOLOGY INSTRUCTOR [address] [place], [place] [phone] PCP - General Family Medicine 10/06/19 Beef Lugger Relationship Specialty Start Date End Date Emi Cook, ROAD CUTTER.COMPUTER SYSTEMS TECHNOLOGY INSTRUCTOR [address] [place], [place] [id number] PCP - General Family Medicine 10/06/19 Beef Lugger Relationship Specialty Start Date End Date Celina Levy MD [address] [place] [address] Physician Dermatology 05/09/23 Beef Lugger Relationship Specialty Start Date End Date Emi Cook [address] [place] [address] PCP - General Nurse Practitioner 01/25/24 Beef Lugger Relationship Specialty Start Date End Date Emi Cook, ROAD CUTTER.COM[employer]ER SYSTEMS TECHNOLOGY INSTRUCTOR [address] [place], [place] [phone] PCP - General Family Medicine 10/06/19 Beef Lugger Relationship Specialty Start Date End Date Emi Cook, ROAD CUTTER.COMPUTER SYSTEMS TECHNOLOGY INSTRUCTOR [address] [place], [place] [phone] PCP - General Family Medicine 10/06/19 Beef Lugger Relationship Specialty Start Date End Date Emi Cook [address] [place], [place] [id number] PCP - General 09/10/21 Beef Lugger Relationship Specialty Start Date End Date Emi Cook [address] [place] [address] PCP - General Nurse Practitioner 01/25/24 Beef Lugger Relationship Specialty Start Date End Date Emi Cook, ROAD CUTTER.COMPUTER SYSTEMS TECHNOLOGY INSTRUCTOR [address] [place] [phone] PCP - General Family Medicine 10/06/19 Beef Lugger Relationship Specialty Start Date End Date Emi Cook [address] [place] [address] PCP - General Nurse Practitioner 01/25/24 Beef Lugger Relationship Specialty Start Date End Date Emi Cook [address] [place] [address] PCP - General Nurse Practitioner 01/25/24 Beef Lugger Relationship Specialty Start Date End Date Celina Levy MD [address] [place] [address] Physician Dermatology 05/09/23 Goals (unrecognized [...] BE BASED ON THE PRIMARY CLINICAL RECORDS. [facility] [employer] [facility] provides no warranty or guarantee of the accuracy or completeness of information in this document.
[2025-06-01 08:05] LABS: Ammonia 21.1 umol/L (11-51)
[2025-06-01 08:26] LABS: Hematocrit 41.3 % (37-47); Hemoglobin 13.7 g/dL (12.0-15.0); Mean Corp Hgb Conc 33.2 g/dL (32-36); Mean Corpuscular Volume 95.2 fL (81-99); Mean Platelet Vol. 9.8 fl (6.2-12.0); Platelet Count 215 K/mm3 (150-450); RBC Distribution Width CV 13.9 % (11.6-14.6); RBC Distribution Width SD 49.1 fl (35.1-43.9); Red Blood Count 4.34 M/mm3 (4.2-5.4); White Blood Count 6.6 K/mm3 (4.4-11.0)
[2025-06-01 08:39] LABS: AST(SGOT) 22 U/L (<=31); Alanine Aminotransfer ALT/SGPT 13 U/L (<=34); Albumin, Serum 3.9 g/dL (3.4-4.8); Alkaline Phosphatase 69 U/L (35-104); Bilirubin, Direct 0.12 mg/dL (0.00-0.30); Globulin 3.1 g/dL (2.2-4.2)
[2025-06-01 08:40] LABS: Valproic Acid (Depakene) Level 40 ug/mL (50-100)
== END ==
LOC: OLS.SW 05:00
PROVIDERS: PCP Nurse Practitioner; Visit Provider Family Medicine
DX: R48.8 Other symbolic dysfunctions (principal); F03.90 Unspecified dementia, unspecified severity, without behavioral disturbance, psychotic disturbance, mood disturbance, and anxiety; Z79.899 Other long term (current) drug therapy
CPT/HCPCS: 36415; 80076; 80164; 82140; 85027

== ENCOUNTER → 2025-07-18 05:00 | Outpatient (REF) | payer MEDICARE, SELFPAY ==
--- OUTSIDE RECORDS SUMMARY | 2025-07-18 04:07 | XMS RPT_ITS | CCD ---
Author Organization [facility] Care Team Providers Care Professor Of Genetics Name Role Phone HAWK PERKINS, DR ROSEMARY Molina Primary Care Physician [phone] Joey PROBATION AND PATROL AGENT.Emi LOPEZ Primary Care Provide r Yoselyn Paez [...] Care Unavailable Cook, Emi Primary Care Provider [phone] Joey PROBATION AND PATROL AGENT.Emi LOPEZ Primary Care Provide r Ventura Cooka Primary Care Provider PROVIDER, UNKNOWN Attending Unavailable PROVIDER, UNKNOWN Admitting Unavailable PATIENT, SELF Referring Unavailable Unavailable Primary Care Provider Unavailabl e Cook, Emi Primary Care Provider [phone] Joey Emi Primary Care Provider Joey PROBATION AND PATROL AGENT.Emi LOPEZ Primary Care Provide r Mildred PERKINS, Celina Unavailable COOK, EMI L Primary Care Unavailable EDDIE, NICK Admitting Unavailable NICK MORGAN Attending Unavailable SHAKILA WARE Attending Unavailable COOK, EMI L Primary Care Unavailable COOK, EMI L Primary Care Unavailable SHAKILA RUIZ Attending Unavailable COOK, EMI Primary Care Unavailable GUNJAN CASTILLO Attending Unavailable SIMMERSGUNJAN Attending Unavailable COOK, EMI Primary Care Unavailable COOK, EMI Primary Care Unavailable SIMMERS, GUNJAN Referring Unavailable SIMMERS GUNJAN Attending Unavailable AMILCAR BRADFORD Referring Unavailable COOK, EMI [...] Unavailable COOK, EMI L Primary Care Unavailable Joey TELEPHONE SURVEYOR, Emi Primary Care Unavailable Josué Orr Attending Unavailable Josué Orr Attending Unavailable Joey TELEPHONE SURVEYOR, Emi Primary Care Unavailable Josué Orr Referring Unavailable Joey TELEPHONE SURVEYOR, Emi Primary Care Unavailable Josué Orr Attending Unavailable Joey TELEPHONE SURVEYOR, Emi Primary Care Unavailable Cook TELEPHONE SURVEYOR, Emi Attending Unavailable Cook TELEPHONE SURVEYOR, Emi Referring Unavailable Allergies Allergy Classification Reported Allergen(s) Allergy Type Date of Onset Reaction(s) Facility (3 sources) cat dander; Translations: [cat dander] Allergy to substance 2 NEEDS FOLLOW-UP [facility] Medications Current Medications Medication Drug [...] on above: Take 1 tablet by yina once daily. atorvastatin 40 mg oral tablet [...] hydrochloride 10 mg oral tablet (20 sources) E-pqzmqb-B-aspartate Receptor Antagonist Start: 04-09-2023 memantine (NAMENDA) 10 [...] Translations: [Cobalamin deficiency] Onset: 2 Episodic Other aftercare (1 source) Other vermin exterminator (current) drug therapy; Translations: [Other senior care (current) drug therapy] Onset: 5 Episodic Other and unspecified benign neoplasm (1 [...] other mental and behavioral disorders] 10-22-2023 Episodic Thyroid disorders (1 source) Hypothyroidism, unspecified; Translations: [Hypothyroidism, unspecified] Onset: 5 Chronic Unclassified (1 source) Dementia in other diseases [...] Test Name Value Interpretation Reference Range Facility [facility] 06-01-2025 Ammonia (P) [Moles/Vol] 21.1 umol/L Normal 11-51 [facility] Comment on above: Order Comment: 402-1 Performed By: #### L 500.4100, L501.9310, L501.9985, L100.0500, L501.9520, L500.4050 #### [facility] [address] [place], [address] CBC-[facility] Erythrocyte distribution width (RBC) [Ratio] 13.9 % Normal 11.6-14.6 [facility] Comment on above: Order Comment: 402-1 Performed By: #### L 500.4100, L501.9310, L501.9985, L100.0500, L501.9520, L500.4050 #### [facility] [address] [place], [address] Hematocrit (Bld) [Volume fraction] 41.3 % Normal 37-47 [facility] Comment on above: Order Comment: 402-1 Performed By: #### L 500.4100, L501.9310, L501.9985, L100.0500, L501.9520, L500.4050 #### [facility] [address] [place], [address] Hemoglobin (Bld) [Mass/Vol] 13.7 g/dL Normal 12.0-15.0 [facility] Comment on above: Order Comment: 402-1 Performed By: #### L 500.4100, L501.9310, L501.9985, L100.0500, L501.9520, L500.4050 #### [facility] [address] [place], [address] MCH (RBC) [Entitic mass] 31.6 pg Normal 27.0-32.0 [facility] Comment on above: Order Comment: 402-1 Performed By: #### L 500.4100, L501.9310, L501.9985, L100.0500, L501.9520, L500.4050 #### [facility] [address] [place], [address] MCHC (RBC) [Mass/Vol] 33.2 g/dL Normal 32-36 [facility] Comment on above: Order Comment: 402-1 Performed By: #### L 500.4100, L501.9310, L501.9985, L100.0500, L501.9520, L500.4050 #### [facility] [address] [place], [address] MCV (RBC) [Entitic vol] 95.2 fL Normal 81-99 [facility] Comment on above: Order Comment: 402-1 Performed By: #### L 500.4100, L501.9310, L501.9985, L100.0500, L501.9520, L500.4050 #### [facility] [address] [place], [address] Platelet mean volume (Bld) [Entitic vol] 9.8 fL Normal 6.2-12.0 [facility] Comment on above: Order Comment: 402-1 Performed By: #### L 500.4100, L501.9310, L501.9985, L100.0500, L501.9520, L500.4050 #### [facility] [address] [place], [address] Platelets (Bld) [#/Vol] 215 10*3/uL Normal 150-450 [facility] Comment on above: Order Comment: 402-1 Performed By: #### L 500.4100, L501.9310, L501.9985, L100.0500, L501.9520, L500.4050 #### [facility] [address] [place], [address] RBC (Bld) [#/Vol] 4.34 10*6/uL Normal 4.2-5.4 [facility] Comment on above: Order Comment: 402-1 Performed By: #### L 500.4100, L501.9310, L501.9985, L100.0500, L501.9520, L500.4050 #### [facility] [address] [place], [address] RDW SD 49.1 fl High 35.1-43.9 [facility] Comment on above: Order Comment: 402-1 Performed By: #### L 500.4100, L501.9310, L501.9985, L100.0500, L501.9520, L500.4050 #### [facility] [address] [place], [address] WBC (Bld) [#/Vol] 6.6 10*3/uL Normal 4.4-11.0 [facility] Comment on above: Order Comment: 402-1 Performed By: #### L 500.4100, L501.9310, L501.9985, L100.0500, L501.9520, L500.4050 #### [facility] [address] [place], [address] Liver Profileon 06-01-2025 Albumin [Mass/Vol] 3.9 g/dL Normal 3.4-4.8 [facility] Comment on above: Order Comment: 402-1 Performed By: #### L 500.4100, L501.9310, L501.9985, L100.0500, L501.9520, L500.4050 #### [facility] [address] [place], [address] ALK PHOS 69 U/L Normal 35-104 [facility] Comment on above: Order Comment: 402-1 Performed By: #### L 500.4100, L501.9310, L501.9985, L100.0500, L501.9520, L500.4050 #### [facility] [address] [place], [address] ALT [Catalytic activity/Vol] 13 U/L Normal <=34 [facility] Comment on above: Order Comment: 402-1 Performed By: #### L 500.4100, L501.9310, L501.9985, L100.0500, L501.9520, L500.4050 #### [facility] [address] [place], [address] AST [Catalytic activity/Vol] 22 U/L Normal <=31 [facility] Comment on above: Order Comment: 402-1 Performed By: #### L 500.4100, L501.9310, L501.9985, L100.0500, L501.9520, L500.4050 #### [facility] [address] [place], [address] Bilirubin [Mass/Vol] 0.34 mg/dL Normal 0.00-1.30 [facility] Comment on above: Order Comment: 402-1 Performed By: #### L 500.4100, L501.9310, L501.9985, L100.0500, L501.9520, L500.4050 #### [facility] [address] [place], [address] Bilirubin.direct [Mass/Vol] 0.12 mg/dL Normal 0.00-0.30 [facility] Comment on above: Order Comment: 402-1 Performed By: #### L 500.4100, L501.9310, L501.9985, L100.0500, L501.9520, L500.4050 #### [facility] [address] [place], [address] Globulin (S) [Mass/Vol] 3.1 g/dL Normal 2.2-4.2 [facility] Comment on above: Order Comment: 402-1 Performed By: #### L 500.4100, L501.9310, L501.9985, L100.0500, L501.9520, L500.4050 #### [facility] [address] [place], [address] T PROT 7.0 g/dL Normal 5.9-8.4 [facility] Comment on above: Order Comment: 402-1 Performed By: #### L 500.4100, L501.9310, L501.9985, L100.0500, L501.9520, L500.4050 #### [facility] [address] [place], [address] Valproic Acid (Depakene) Lev ene 06-01-2025 VALPROIC ACID 40 ug/mL Low 50-100 [facility] Comment on above: Order Comment: 402-1 Result Comment: Valp roic Acid concentrations >100 ug/mL are potentially toxic. Performed By: #### L 500.4100, L501.9310, L501.9985, L100.0500, L501.9520, L500.4050 #### [facility] [address] [place], [address] T4 Total, Thyroxinon 025 T4 [Mass/Vol] 5.3 ug/dL Normal 4.8-13.9 [facility] Comment on above: Order Comment: 410.2 Performed By: #### L 501.9310, L501.9520 #### [facility] [address] [place], [address] Thyroid Stim Hormone (TSH)on 05-30-2025 TSH 4.480 uIU/mL High 0.300-4.200 [facility] Comment on above: Order Comment: 402-1 Performed By: #### L 500.4100, L501.9310, L501.9985, L100.0500, L501.9520, L500.4050 #### [facility] [address] [place], [address] CBC-Complete Blood Cnt No Di on 03-10-2025 Erythrocyte distribution width (RBC) [Ratio] 12.8 % Normal 11.6-14.6 [facility] Comment on above: Order Comment: 402-1 Performed By: #### L 500.4100, L501.9310, L501.9985, L100.0500, L501.9520, L500.4050 #### [facility] [address] [place], [address] Hematocrit (Bld) [Volume fraction] 39.0 % Normal 37-47 [facility] Comment on above: Order Comment: 402-1 Performed By: #### L 500.4100, L501.9310, L501.9985, L100.0500, L501.9520, L500.4050 #### [facility] [address] [place], [address] Hemoglobin (Bld) [Mass/Vol] 13.2 g/dL Normal 12.0-15.0 [facility] Comment on above: Order Comment: 402-1 Performed By: #### L 500.4100, L501.9310, L501.9985, L100.0500, L501.9520, L500.4050 #### [facility] [address] [place], [address] MCH (RBC) [Entitic mass] 31.0 pg Normal 27.0-32.0 [facility] Comment on above: Order Comment: 402-1 Performed By: #### L 500.4100, L501.9310, L501.9985, L100.0500, L501.9520, L500.4050 #### [facility] [address] [place], [address] MCHC (RBC) [Mass/Vol] 33.8 g/dL Normal 32-36 [facility] Comment on above: Order Comment: 402-1 Performed By: #### L 500.4100, L501.9310, L501.9985, L100.0500, L501.9520, L500.4050 #### [facility] [address] [place], [address] MCV (RBC) [Entitic vol] 91.5 fL Normal 81-99 [facility] Comment on above: Order Comment: 402-1 Performed By: #### L 500.4100, L501.9310, L501.9985, L100.0500, L501.9520, L500.4050 #### [facility] [address] [place], [address] Platelet mean volume (Bld) [Entitic vol] 9.6 fL Normal 6.2-12.0 [facility] Comment on above: Order Comment: 402-1 Performed By: #### L 500.4100, L501.9310, L501.9985, L100.0500, L501.9520, L500.4050 #### [facility] [address] [place], [address] Platelets (Bld) [#/Vol] 291 10*3/uL Normal 150-450 [facility] Comment on above: Order Comment: 402-1 Performed By: #### L 500.4100, L501.9310, L501.9985, L100.0500, L501.9520, L500.4050 #### [facility] [address] [place], [address] RBC (Bld) [#/Vol] 4.26 10*6/uL Normal 4.2-5.4 [facility] Comment on above: Order Comment: 402-1 Performed By: #### L 500.4100, L501.9310, L501.9985, L100.0500, L501.9520, L500.4050 #### [facility] [address] [place], [address] RDW SD 42.4 fl Normal 35.1-43.9 [facility] Comment on above: Order Comment: 402-1 Performed By: #### L 500.4100, L501.9310, L501.9985, L100.0500, L501.9520, L500.4050 #### [facility] [address] [place], [place], [address] [phone] WBC (Bld) [#/Vol] 8.2 10*3/uL Normal 4.4-11.0 [facility] Comment on above: Order Comment: 402-1 Performed By: #### L 500.4100, L501.9310, L501.9985, L100.0500, L501.9520, L500.4050 #### [facility] [address] [place], [address] Comprehensive Metabolic Prof ilon 03-10-2025 Albumin [Mass/Vol] 4.1 g/dL Normal 3.4-4.8 [facility] Comment on above: Order Comment: 402-1 Performed By: #### L 500.4100, L501.9310, L501.9985, L100.0500, L501.9520, L500.4050 #### [facility] [address] [place], [address] Albumin/Globulin [Mass ratio] 1.4 {ratio} Normal 0.9-2.4 [facility] Comment on above: Order Comment: 402-1 Performed By: #### L 500.4100, L501.9310, L501.9985, L100.0500, L501.9520, L500.4050 #### [facility] [address] [place], [address] ALK PHOS 73 U/L Normal 35-104 [facility] Comment on above: Order Comment: 402-1 Performed By: #### L 500.4100, L501.9310, L501.9985, L100.0500, L501.9520, L500.4050 #### [facility] [address] [place], [address] ALT [Catalytic activity/Vol] 14 U/L Normal <=34 [facility] Comment on above: Order Comment: 402-1 Performed By: #### L 500.4100, L501.9310, L501.9985, L100.0500, L501.9520, L500.4050 #### [facility] [address] [place], [address] AST [Catalytic activity/Vol] 21 U/L Normal <=31 [facility] Comment on above: Order Comment: 402-1 Performed By: #### L 500.4100, L501.9310, L501.9985, L100.0500, L501.9520, L500.4050 #### [facility] [address] [place], [address] Bilirubin [Mass/Vol] 0.26 mg/dL Normal 0.00-1.30 [facility] Comment on above: Order Comment: 402-1 Performed By: #### L 500.4100, L501.9310, L501.9985, L100.0500, L501.9520, L500.4050 #### [facility] [address] [place], [address] BUN/CRE 16.2 RATIO Normal 10-20 [facility] Comment on above: Order Comment: 402-1 Performed By: #### L 500.4100, L501.9310, L501.9985, L100.0500, L501.9520, L500.4050 #### [facility] [address] [place], [address] Calcium [Mass/Vol] 9.6 mg/dL Normal 7.6-11.0 [facility] Comment on above: Order Comment: 402-1 Performed By: #### L 500.4100, L501.9310, L501.9985, L100.0500, L501.9520, L500.4050 #### [facility] [address] [place], [address] Chloride [Moles/Vol] 107 mmol/L Normal 98-108 [facility] Comment on above: Order Comment: 402-1 Performed By: #### L 500.4100, L501.9310, L501.9985, L100.0500, L501.9520, L500.4050 #### [facility] [address] [place], [address] CO2 [Moles/Vol] 24.8 mmol/L Normal 21.0-32.0 [facility] Comment on above: Order Comment: 402-1 Performed By: #### L 500.4100, L501.9310, L501.9985, L100.0500, L501.9520, L500.4050 #### [facility] [address] [place], [address] Creatinine [Mass/Vol] 0.82 mg/dL Normal 0.70-1.20 [facility] Comment on above: Order Comment: 402-1 Performed By: #### L 500.4100, L501.9310, L501.9985, L100.0500, L501.9520, L500.4050 #### [facility] [address] [place], [address] GAP 11 Normal 5-15 [facility] Comment on above: Order Comment: 402-1 Performed By: #### L 500.4100, L501.9310, L501.9985, L100.0500, L501.9520, L500.4050 #### [facility] [address] [place], [address] GFR/1.73 sq M.predicted among non-blacks MDRD (S/P/Bld) [Vol rate/Area] 74 mL/min/{1.73_m2} Normal >60 [facility] Comment on above: Order Comment: 402-1 Result Comment: mL/m in/1.73m2 CKD-EPI Creatinine Equation (2020) Performed By: #### L 500.4100, L501.9310, L501.9985, L100.0500, L501.9520, L500.4050 #### [facility] [address] [place], [address] Globulin (S) [Mass/Vol] 3.0 g/dL Normal 2.2-4.2 [facility] Comment on above: Order Comment: 402-1 Performed By: #### L 500.4100, L501.9310, L501.9985, L100.0500, L501.9520, L500.4050 #### [facility] [address] [place], [address] Glucose [Mass/Vol] 102 mg/dL High 70-99 [facility] Comment on above: Order Comment: 402-1 Performed By: #### L 500.4100, L501.9310, L501.9985, L100.0500, L501.9520, L500.4050 #### [facility] [address] [place], [address] Potassium [Moles/Vol] 4.1 mmol/L Normal 3.3-5.1 [facility] Comment on above: Order Comment: 402-1 Performed By: #### L 500.4100, L501.9310, L501.9985, L100.0500, L501.9520, L500.4050 #### [facility] [address] [place], [address] Sodium [Moles/Vol] 143 mmol/L Normal 133-145 [facility] Comment on above: Order Comment: 402-1 Performed By: #### L 500.4100, L501.9310, L501.9985, L100.0500, L501.9520, L500.4050 #### [facility] [address] [place], [address] T PROT 7.2 g/dL Normal 5.9-8.4 [facility] Comment on above: Order Comment: 402-1 Performed By: #### L 500.4100, L501.9310, L501.9985, L100.0500, L501.9520, L500.4050 #### [facility] [address] [place], [address] Urea nitrogen [Mass/Vol] 13 mg/dL Normal 4-19 [facility] Comment on above: Order Comment: 402-1 Performed By: #### L 500.4100, L501.9310, L501.9985, L100.0500, L501.9520, L500.4050 #### [facility] [address] [place], [address] Hemoglobin A1con 03-10-2025 HbA1c (Bld) [Mass fraction] 5.7 % Normal <=5.6 [facility] Comment on above: Order Comment: 402-1 Result Comment: Norm al < 5.7 % Prediabetic 5.7 - 6.4 % Diabetic >or= 6.5 % Please note range changes. Performed By: #### L 500.4100, L501.9310, L501.9985, L100.0500, L501.9520, L500.4050 #### [facility] [address] [place], [address] Lipid Profileon 03-10-2025 CHOL:HDL 3.43 Normal [facility] Comment on above: Order Comment: 402-1 Performed By: #### L 500.4100, L501.9310, L501.9985, L100.0500, L501.9520, L500.4050 #### [facility] [address] [place], [address] Cholesterol [Mass/Vol] 214 mg/dL High <=200 [facility] Comment on above: Order Comment: 402-1 Result Comment: Chol esterol level, Desirable <200 mg/dL Borderline high cholesterol 200-239 mg/dL High cholesterol >=240 mg/dL Recommendations of the NCEP Adult Treatment Panel for the following risk-cutoff thresholds for the [place] population. Performed By: #### L 500.4100, L501.9310, L501.9985, L100.0500, L501.9520, L500.4050 #### [facility] [address] [place], [address] Cholesterol in HDL [Mass/Vol] 62 mg/dL Normal [facility] Comment on above: Order Comment: 402-1 Result Comment: María onal Cholesterol Education Program (NCEP) guidelines: <40 mg/dL: Low HDL-cholesterol (major risk factor for CHD) >= 60 mg/dL: High HDL-cholesterol (negative risk factor for CHD) HDL-cholesterol is affected by a number of factors, e.g. smoking, exercise, hormones, sex and age. Performed By: #### L 500.4100, L501.9310, L501.9985, L100.0500, L501.9520, L500.4050 #### [facility] [address] [place], [address] Cholesterol in LDL [Mass/Vol] 136 mg/dL Normal [facility] Comment on above: Order Comment: 402-1 Result Comment: Bord fuegmp=379-345 mg/dL Higher Gdfb=210 mg/dL or greater Performed By: #### L 500.4100, L501.9310, L501.9985, L100.0500, L501.9520, L500.4050 #### [facility] [address] [place], [address] Cholesterol in VLDL [Mass/Vol] 16 mg/dL Normal 5-40 [facility] Comment on above: Order Comment: 402-1 Performed By: #### L 500.4100, L501.9310, L501.9985, L100.0500, L501.9520, L500.4050 #### [facility] [address], [address] Triglyceride [Mass/Vol] 78 mg/dL Normal [facility] Comment on above: Order Comment: 402-1 Result Comment: The drugs N-Acetylcysteine and Metamizole may falsely depress this assay. Normal range: <150 mg/dL Borderline High: 150-199 mg/dL High: 200-499 mg/dL Very High: >500 mg/dL Performed By: #### L 500.4100, L501.9310, L501.9985, L100.0500, L501.9520, L500.4050 #### [facility] [address] [place], [place], [address] T4 Total, Thyroxinon 025 T4 [Mass/Vol] 5.1 ug/dL Normal 4.8-13.9 [facility] Comment on above: Order Comment: 402-1 Performed By: #### L 500.4100, L501.9310, L501.9985, L100.0500, L501.9520, L500.4050 #### [facility] [address] [place], [address] Thyroid Stim Hormone (TSH)on 03-10-2025 TSH 4.260 uIU/mL High 0.300-4.200 [facility] Comment on above: Order Comment: 402-1 Performed By: #### L 500.4100, L501.9310, L501.9985, L100.0500, L501.9520, L500.4050 #### [facility] [address] [place], [place], [address] ECG 12 leadOrdered By: Fabricio Moctezuma on 02-24-2025 Heart rate 63 /min bpm [facility] Phone: P [place] 39 degrees [facility] Phone: [place] Interval 158 ms [facility] [employer] Work Phone: QRS [place] -15 degrees [facility] [employer] Work Phone: QRSD Interval 68 ms [facility] [facility] [employer] Work Phone: QT Interval 396 ms [facility] [employer] Work Phone: QTC Interval 405 ms [facility] [employer] Work Phone: T Wave Enderlin 25 degrees [facility] [employer] Work Phone: [facility] [employer] Work Phone: ECG 12 leadon 02-24-2025 Fabricio Moctezuma MD - 02/24/2025 IMPRESSION: Sinus rhythm Ventricular premature complex Abnormal R-wave progression, early transition No previous ECG available for comparison Electronically Signed On 02-24-2025 10:47:30 EDT by Fabricio Moctezuma [facility] 36on 02-23-2025 36 Requested papers wer e signed by Dr Castillo and faxed to [phone]. [facility] 36 Thanks! Patient will be moving into [facility]. They need the following per daughter: -History and Physical -Face Sheet -Med List -Progress Notes -Discharge orders ( statement from the physician recommending Group Home Care Placement) They could be sent by email or fax to [email or web address] F: [phone]" Can you print out today's note, today's letter, a facesheet, and a medication list? Once I sign the note/letter, then this can be faxed to [facility]. Thanks! [facility] 36 I spoke to Elizabeth and she said it was recently changed to: 25 mg at 10:00 am, 25 mg at 2:00 pm, 50 mg at 5:00 pm and 50 mg at 8:00 pm [facility] 36 Can you call and confirm the quetiapine (Seroquel) dosing with daughter Elizabeth? We have the dose as 50 mg at lunch, 50 mg at 4 pm, and 100 mg at 8 pm. I want to make sure it is correct on the Med list for the alf [facility] Office Visiton 02-23-2025 Follow-up visit [id number] Manas Vital ggmargarita 1945 F Date Provider Department Center 02/23/2025 [id number] CASTILLO [facility] None Family History Problem Relation Age of Onset Dementia Maternal Grandmother Family Status - Relation Status Age at Maternal Grandmother Level of Service:20577 VA OFFICE/OUTPATIENT ESTABLISHED HIGH MDM 40 MIN Reason for Visit and Comments: Memory Loss [66] Normal 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 Activities: watches tv, spends time with cat >>02/17/22 just went on vacation, walks in condo, plays cards, plays piano, visiting friends >>08/22/22 outside, TV, cat sits out with neighbor, yazdanism, >>02/26/23 walks, visits with neighbors, yazdanism, [employer] sports games, just came back from vacation >>10/22/23 same >>02/25/24 visits with aide, getting to physical therapy, going on walks >>08/25/24 visits with aides, goes to [facility], goes to [facility] >>02/23/25 same Exercise: walks around her house >>02/17/22 walking, weights >>08/22/22 walks around the condo or in her neighborhood >>02/26/23 walks >>10/22/23 walks >>02/25/24 walks, physical therapy >>08/25/24 walking, goint to [facility] Finances: meeting soon with Medicaid chief design drafter Healthcare Power of Record Tester: Yes, Daughter Elizabeth Financial Power of Record Tester: Yes, Daughter Elizabeth Living Will: Yes Guardian:No [...] sees her sometimes >>02/25/24 has 24 hour healthcare architect, Xochitl who is living with her, another [...] members. SW suggested that daughter check out [email or web address] to check out any other prod (more content not included)... Normal [facility] Progress Note Review of Systems Constitutional: Negative [...] for hallucinations. The patient is nervous/anxious. Normal [facility] Progress Note [facility] [address] [facility] [address] Dept: [phone] Dept Loc: [phone] Visit type: [facility] Follow Up Visit Reason for Visit: [...] -Plan is for patient to move into [facility] memory care unit. I agree that she is appropriate for exterminator termite care placement at this time due to [...] Disease, hypertension, depression who presents to the [facility] for a follow-up visit. The patient [...] moving into a memory care unit at [facility]. Will do the H and P [...] "wants to escape"). 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 -Sleep: Better now. -Appetite: Still eats well. [...] See administration (more content not included)... Normal [facility] 36on 01-24-2025 36 Request for refill received from interface Last appointment: 08/25/2024 Next appointment: 02/23/2025 Pharmacy confirmed: [x] Yes [] No Normal [facility] NM PET/CT BRAIN PLAQUE IMAGI NGon 09-29-2024 [...] purposes. There are no significant incidental findings. Tooling Manager: TOSIN Transcribe Date/Time: Oct 03 2024 8:53A Dictated by : CARIE MELGAR MD This examination was interpreted and the report reviewed and electronically signed by: CARIE MELGAR MD on Oct 03 2024 8:56AM EST [id number] Normal [facility] CBC W/Diff, Automatedon 11-1 Absolute Lymph 1.36 X10 3/uL Normal 0.83-4.51 [facility] Comment on above: Performed By: #### L 500.4100, L500.4050, L100.0100 #### [facility] Laboratory [address] [place], [address] Absolute Neut 4.0 X10 3/uL Normal 2.0-7.7 [facility] Comment on above: Performed By: #### L 500.4100, L500.4050, L100.0100 #### [facility] Laboratory [address] [place], [address] Basophils/100 WBC (Bld) 0.5 % Normal 0-1 [facility] Comment on above: Performed By: #### L 500.4100, L500.4050, L100.0100 #### [facility] [address] [place], [address] Eosinophils/100 WBC (Bld) 2.0 % Normal 0-5 [facility] Comment on above: Performed By: #### L 500.4100, L500.4050, L100.0100 #### [facility] [address] [place], [address] Erythrocyte distribution width (RBC) [Ratio] 12.9 % Normal 11.6-14.6 [facility] Comment on above: Performed By: #### L 500.4100, L500.4050, L100.0100 #### [facility] [address] [place], [address] Hematocrit (Bld) [Volume fraction] 39.3 % Normal 37-47 [facility] Comment on above: Performed By: #### L 500.4100, L500.4050, L100.0100 #### [facility] [address] [place], [address] Hemoglobin (Bld) [Mass/Vol] 13.1 g/dL Normal 12.0-15.0 [facility] Comment on above: Performed By: #### L 500.4100, L500.4050, L100.0100 #### [facility] [address] [place], [address] IG% 0.700 Normal 0.0-0.9 [facility] Comment on above: Result Comment: IG% - Immature Granulocytes (promyelocytes, myelocytes and metamyelocytes) > 1% indicates that a LEFT SHIFT is Present. Performed By: #### L 500.4100, L500.4050, L100.0100 #### [facility] [address], [address] Lymphocytes/100 WBC (Bld) 22.9 % Normal 19-41 [facility] Comment on above: Performed By: #### L 500.4100, L500.4050, L100.0100 #### [facility] [address] [place], [address] MCH (RBC) [Entitic mass] 31.2 pg Normal 27.0-32.0 [facility] Comment on above: Performed By: #### L 500.4100, L500.4050, L100.0100 #### [facility] [address] [place], [address] MCHC (RBC) [Mass/Vol] 33.3 g/dL Normal 32-36 [facility] Comment on above: Performed By: #### L 500.4100, L500.4050, L100.0100 #### [facility] [address] [place], [address] MCV (RBC) [Entitic vol] 93.6 fL Normal 81-99 [facility] Comment on above: Performed By: #### L 500.4100, L500.4050, L100.0100 #### [facility] [address] [place], [address] Monocytes/100 WBC (Bld) 7.4 % Normal 0-10 [facility] Comment on above: Performed By: #### L 500.4100, L500.4050, L100.0100 #### [facility] [address] [place], [address] Neutrophils/100 WBC (Bld) 66.5 % Normal 47-70 [facility] Comment on above: Performed By: #### L 500.4100, L500.4050, L100.0100 #### [facility] [address] [place], [address] Nucleated RBC (Bld) [#/Vol] 0 10*3/uL Normal 0-5 [facility] Comment on above: Performed By: #### L 500.4100, L500.4050, L100.0100 #### [facility] [address] [place], [address] Platelet mean volume (Bld) [Entitic vol] 10.5 fL Normal 6.2-12.0 [facility] Comment on above: Performed By: #### L 500.4100, L500.4050, L100.0100 #### [facility] [address] [place], [address] Platelets (Bld) [#/Vol] 255 10*3/uL Normal 150-450 [facility] Comment on above: Performed By: #### L 500.4100, L500.4050, L100.0100 #### [facility] [address] [place], [address] RBC (Bld) [#/Vol] 4.20 10*6/uL Normal 4.2-5.4 [facility] Comment on above: Performed By: #### L 500.4100, L500.4050, L100.0100 #### [facility] [address] [place], [address] RDW SD 44.2 fl High 35.1-43.9 [facility] Comment on above: Performed By: #### L 500.4100, L500.4050, L100.0100 #### [facility] [address] [place], [address] WBC (Bld) [#/Vol] 6.0 10*3/uL Normal 4.4-11.0 [facility] Comment on above: Performed By: #### L 500.4100, L500.4050, L100.0100 #### [facility] [address] [place], [address] Comprehensive Metabolic Prof ilon 09-21-2024 Albumin [Mass/Vol] 3.7 g/dL Normal 3.2-5.0 [facility] Comment on above: Performed By: #### L 500.4100, L500.4050, L100.0100 #### [facility] [address] [place], [address] Albumin/Globulin [Mass ratio] 1.0 {ratio} Normal 0.9-2.4 [facility] Comment on above: Performed By: #### L 500.4100, L500.4050, L100.0100 #### [facility] [address] [place], [address] ALK P 86 U/L Normal 45-117 [facility] Comment on above: Performed By: #### L 500.4100, L500.4050, L100.0100 #### [facility] [address] [place], [address] ALT [Catalytic activity/Vol] 18 U/L Normal 13-56 [facility] Comment on above: Performed By: #### L 500.4100, L500.4050, L100.0100 #### [facility] [address] [place], [address] AST [Catalytic activity/Vol] 17 U/L Normal 15-37 [facility] Comment on above: Performed By: #### L 500.4100, L500.4050, L100.0100 #### [facility] [address] [place], [address] Bilirubin [Mass/Vol] 0.30 mg/dL Normal 0.20-1.00 [facility] Comment on above: Result Comment: For patients on eltrombopag therapy, use of Dimension [place] TBIL is not recommended. Performed By: #### L 500.4100, L500.4050, L100.0100 #### [facility] [address] [place], [address] BUN/CRE 14.4 RATIO Normal 10-20 [facility] Comment on above: Performed By: #### L 500.4100, L500.4050, L100.0100 #### [facility] [address] [place], [address] CA,Total 9.5 mg/dL Normal 8.5-10.1 [facility] Comment on above: Performed By: #### L 500.4100, L500.4050, L100.0100 #### [facility] [address] [place], [address] Chloride [Moles/Vol] 107 mmol/L Normal 98-107 [facility] Comment on above: Performed By: #### L 500.4100, L500.4050, L100.0100 #### [facility] [address] [place], [address] CO2 [Moles/Vol] 29.0 mmol/L Normal 21.0-32.0 [facility] Comment on above: Performed By: #### L 500.4100, L500.4050, L100.0100 #### [facility] [address] [place], [address] Creatinine [Mass/Vol] 1.04 mg/dL High 0.55-1.02 [facility] Comment on above: Result Comment: The validity of the calculated GFR GFRAA in patients over 70 years has not been determined. Clinical correlation is essential. Performed By: #### L 500.4100, L500.4050, L100.0100 #### [facility] [address] [place], [address] EST GFR - AA 66 mL/min Normal >60 [facility] Comment on above: Result Comment: Afri can Czech GFR Calc Performed By: #### L 500.4100, L500.4050, L100.0100 #### [facility] [address] [place], [address] GAP 4 Low 5-15 [facility] Comment on above: Performed By: #### L 500.4100, L500.4050, L100.0100 #### [facility] [address] [place], [address] GFR/1.73 sq M.predicted among non-blacks MDRD (S/P/Bld) [Vol rate/Area] 54 mL/min/{1.73_m2} Low >60 [facility] Comment on above: Result Comment: Non- GFR Calc Performed By: #### L 500.4100, L500.4050, L100.0100 #### [facility] [address] [place], [address] Globulin (S) [Mass/Vol] 3.6 g/dL Normal 2.2-4.2 [facility] Comment on above: Performed By: #### L 500.4100, L500.4050, L100.0100 #### [facility] [address] [place], [address] Glucose [Mass/Vol] 135 mg/dL High 74-106 [facility] Comment on above: Result Comment: Fast ing Glucose result greater than or equal to 126 mg/dL suggests DIABETES MELLITUS per A.D.A. criteria. Performed By: #### L 500.4100, L500.4050, L100.0100 #### [facility] [address] [place], [address] Potassium [Moles/Vol] 3.5 mmol/L Normal 3.5-5.1 [facility] Comment on above: Performed By: #### L 500.4100, L500.4050, L100.0100 #### [facility] [address] [place], [address] Sodium [Moles/Vol] 141 mmol/L Normal 136-145 [facility] Comment on above: Performed By: #### L 500.4100, L500.4050, L100.0100 #### [facility] [address] [place], [address] T PROT 7.3 g/dL Normal 6.4-8.2 [facility] Comment on above: Performed By: #### L 500.4100, L500.4050, L100.0100 #### [facility] [address] [place], [address] Urea nitrogen [Mass/Vol] 15 mg/dL Normal 7-18 [facility] Comment on above: Performed By: #### L 500.4100, L500.4050, L100.0100 #### [facility] [address] [place], [address] Lipid Profileon 09-21-2024 Cholesterol [Mass/Vol] 205 mg/dL High 200 [facility] Comment on above: Result Comment: <200 mg/dL Desirable 200-240 mg/dL Borderline >240 mg/dL High Risk Performed By: #### L 500.4100, L500.4050, L100.0100 #### [facility] [address] [place], [address] Cholesterol in HDL [Mass/Vol] 59 mg/dL Normal [facility] Comment on above: Result Comment: The drugs N-Acetylcysteine and Metamizole may falsely depress this assay. Reference Range HDL <40 mg/dL Low HDL Cholesterol HDL >or= 60 mg/dL High HDL Cholesterol Performed By: #### L 500.4100, L500.4050, L100.0100 #### [facility] [address] [place], [address] Cholesterol in LDL [Mass/Vol] 114 mg/dL Normal 0-130 [facility] Comment on above: Performed By: #### L 500.4100, L500.4050, L100.0100 #### [facility] [address] [place], [address] Cholesterol in VLDL [Mass/Vol] 32 mg/dL Normal 5-40 [facility] Comment on above: Performed By: #### L 500.4100, L500.4050, L100.0100 #### [facility] [address] [place], [address] Triglyceride [Mass/Vol] 162 mg/dL Normal [facility] Comment on above: Result Comment: The drugs N-Acetylcysteine and Metamizole may falsely depress this assay. Serum Triglycerides Reference Interval Normal <150 mg/dL Borderline high 150 - 199 mg/dL High 200 - 499 mg/dL Very High > or = 500 mg/dL Performed By: #### L 500.4100, L500.4050, L100.0100 #### [facility] [address] [place], [address] CNPTeodora 09-19-2024 CNPN Telephone (MFI) CYNDEE VITAL ([id number]) 1945 F Date Time Provider Department 09/19/24 AMILCAR BRADFORD MD [facility] During your visit today, we recorded the following information about you: Abdon Moctezuma, RT(R) 09/19/2024 10:13 AM Signed CYNDEE VITAL [id number] DOS: 09/29/24 PET INJ: 1430 PET 4: 1530 APPT NOTES: DO NOT SUBMIT AUTH TO INSURANCE, BILLED TO [employer] ANU [id number] PET BRAIN AMYVID [employer] TRANSMITTAL FORM [...] Status:Closed by ABDON MOCTEZUMA on 09/19/24 [facility] HNO ID: [id number] Author: LYDIA COSTA RT(Colette) Service: Radiology Author [...] PATIENT PRESENTS WITH AN IMPLANTABLE OR ATTACHED BASIN OPERATOR: No ALLERGIES: Reviewed and unchanged CONTRAST ALLERGY: [...] PERIPHERAL IV DATA: Inpatient - refer to [facility] documentation RADIOLOGY DEPARTMENT: CT; Exam(s) Completed: Abdomen/Pelvis SIGNATURE: RT Cheng(R) PATIENT NAME: Cyndee Vital DATE: August 30, 2024 TIME: 12:40 PM Normal [facility] CBC W Auto Differential pane l (Bld)on 08-30-2024 Basophils (Bld) [#/Vol] 0.03 10*3/uL Normal <0.11 [facility] Comment on above: Order Comment: Speci men Type: BLOOD SPECIMENOrdering Facility: [facility] Address: [address] [place] [address] Performed By: #### 5 7021-8 ####[facility] LABORATORYCLIA [id number] [place] [address] [place] Basophils/100 WBC (Bld) 0.3 % Normal [facility] Comment on above: Order Comment: Speci men Type: BLOOD SPECIMENOrdering Facility: [facility] Address: [address] [place] [address] Performed By: #### 5 7021-8 ####[facility] LABORATORYCLIA [id number] [place] [address] [place] Differential cell count method Nom (Bld) Auto Normal [facility] Comment on above: Order Comment: Speci men Type: BLOOD SPECIMENOrdering Facility: [facility] Address: [address] [place] [address] Performed By: #### 5 7021-8 ####[facility] LABORATORYCLIA [id number] [place] [address] [place] Eosinophils (Bld) [#/Vol] 0.07 10*3/uL Normal <0.46 [facility] Comment on above: Order Comment: Speci men Type: BLOOD SPECIMENOrdering Facility: [facility] Address: [address] [place] [address] Performed By: #### 5 7021-8 ####[facility] LABORATORYCLIA [id number] [address] [place] Eosinophils/100 WBC (Bld) 0.8 % Normal [facility] Comment on above: Order Comment: Speci men Type: BLOOD SPECIMENOrdering Facility: [facility] Address: [address] [place] [address] Performed By: #### 5 7021-8 ####[facility] LABORATORYCLIA [id number] [address] [place] Erythrocyte distribution width (RBC) [Ratio] 12.7 % Normal 11.5-15.0 [facility] Comment on above: Order Comment: Speci men Type: BLOOD SPECIMENOrdering Facility: [facility] Address: [address] [place] [address] Performed By: #### 5 7021-8 ####[facility] LABORATORYCLIA [id number] [address] [place] Hematocrit (Bld) [Volume fraction] 40.3 % Normal 36.0-46.0 [facility] Comment on above: Order Comment: Speci men Type: BLOOD SPECIMENOrdering Facility: [facility] Address: [address] [place] [address] Performed By: #### 5 7021-8 ####[facility] LABORATORYCLIA [id number] [address] [place] Hemoglobin (Bld) [Mass/Vol] 13.6 g/dL Normal 11.5-15.5 [facility] Comment on above: Order Comment: Speci men Type: BLOOD SPECIMENOrdering Facility: [facility] Address: [address] [place] [address] Performed By: #### 5 7021-8 ####[facility] LABORATORYCLIA [id number] [place] [address] [place] Immature granulocytes (Bld) [#/Vol] 10*3/uL Normal <0.10 [facility] Comment on above: Order Comment: Speci men Type: BLOOD SPECIMENOrdering Facility: [facility] Address: [address] [place] [address] Performed By: #### 5 7021-8 ####D[facility] LABORATORYCLIA [id number] [address] [place] [facility] Immature granulocytes/100 WBC (Bld) 0.2 % Normal [facility] Comment on above: Order Comment: Speci men Type: BLOOD SPECIMENOrdering Facility: [facility] Address: [address] [place] [address] Performed By: #### 5 7021-8 ####[facility] LABORATORYCLIA [id number] [place] [address] [place] Lymphocytes (Bld) [#/Vol] 1.87 10*3/uL Normal 1.00-4.00 [facility] Comment on above: Order Comment: Speci men Type: BLOOD SPECIMENOrdering Facility: [facility] Address: [address] [place] [address] Performed By: #### 5 7021-8 ####[facility] LABORATORYCLIA [id number] [address] Lymphocytes/100 WBC (Bld) 21.5 % Normal [facility] Comment on above: Order Comment: Speci men Type: BLOOD SPECIMENOrdering Facility: [facility] Address: [address] [place] [address] Performed By: #### 5 7021-8 ####DIE[facility] LABORATORYCLIA [id number] [place] [address] [place] MCH (RBC) [Entitic mass] 31.6 pg Normal 26.0-34.0 [facility] Comment on above: Order Comment: Speci men Type: BLOOD SPECIMENOrdering Facility: [facility] Address: [address] [place] [address] Performed By: #### 5 7021-8 ####DIE[facility] LABORATORYCLIA [id number] [place] [id number] [place] MCHC (RBC) [Mass/Vol] 33.7 g/dL Normal 30.5-36.0 [place] [facility] Comment on above: Order Comment: Speci men Type: BLOOD SPECIMENOrdering Facility: [facility] Address: [address] [place] [address] Performed By: #### 5 7021-8 ####DIEGO LABORATORYCLIA [id number] [place] [address] [place] MCV (RBC) [Entitic vol] 93.7 fL Normal 80.0-100.0 [facility] Comment on above: Order Comment: Speci men Type: BLOOD SPECIMENOrdering Facility: [facility] Address: [address] [place] [address] Performed By: #### 5 7021-8 ####DIEGO LABORATORYCLIA [id number] [place] [address] [place] Monocytes (Bld) [#/Vol] 0.91 10*3/uL High <0.87 [facility] Comment on above: Order Comment: Speci men Type: BLOOD SPECIMENOrdering Facility: [facility] Address: [address] [place] [address] Performed By: #### 5 7021-8 ####DIEGO LABORATORYCLIA [id number] [address] Monocytes/100 WBC (Bld) 10.5 % Normal [facility] Comment on above: Order Comment: Speci men Type: BLOOD SPECIMENOrdering Facility: [facility] Address: [address] [place] [address] Performed By: #### 5 7021-8 ####DIEGO LABORATORYCLIA [id number] [place] [address] [place] Neutrophils (Bld) [#/Vol] 5.79 10*3/uL Normal 1.45-7.50 [facility] Comment on above: Order Comment: Speci men Type: BLOOD SPECIMENOrdering Facility: [facility] Address: [address] [place], [place] [address] Performed By: #### 5 7021-8 ####DIEGO LABORATORYCLIA [id number] [address] Neutrophils/100 WBC (Bld) 66.7 % Normal [facility] Comment on above: Order Comment: Speci men Type: BLOOD SPECIMENOrdering Facility: [facility] Address: [address] [place] [address] Performed By: #### 5 7021-8 ####DIEGO LABORATORYCLIA [id number] [address] [place] Nucleated RBC (Bld) [#/Vol] 10*3/uL Normal <0.01 [facility] Comment on above: Order Comment: Speci men Type: BLOOD SPECIMENOrdering Facility: [facility] Address: [address] [place] [address] Performed By: #### 5 7021-8 ####DIEGO LABORATORYCLIA [id number] [address] Nucleated RBC/100 WBC (Bld) [Ratio] 0.0 /100 WBC Normal [facility] Comment on above: Order Comment: Speci men Type: BLOOD SPECIMENOrdering Facility: [facility] Address: [address] [place] [address] Performed By: #### 5 7021-8 ####DIEGO LABORATORYCLIA [id number] [address] [place] Platelet mean volume (Bld) [Entitic vol] 9.5 fL Normal 9.0-12.7 [facility] Comment on above: Order Comment: Speci men Type: BLOOD SPECIMENOrdering Facility: [facility] Address: [address] [place] [address] Performed By: #### 5 7021-8 ####DIEGO LABORATORYCLIA [id number] [address] Platelets (Bld) [#/Vol] 229 10*3/uL Normal 150-400 [facility] Comment on above: Order Comment: Speci men Type: BLOOD SPECIMENOrdering Facility: [facility] Address: [address] [place] [id number] Performed By: #### 5 7021-8 ####DIEGO LABORATORYCLIA [id number] [place] [address] [place] RBC (Bld) [#/Vol] 4.30 10*6/uL Normal 3.90-5.20 [facility] Comment on above: Order Comment: Speci men Type: BLOOD SPECIMENOrdering Facility: [facility] Address: [address] [place] [address] Performed By: #### 5 7021-8 ####DIEGO LABORATORYCLIA [id number] [place] [address] [place] WBC (Bld) [#/Vol] 8.69 10*3/uL Normal 3.70-11.00 [facility] Comment on above: Order Comment: Speci men Type: BLOOD SPECIMENOrdering Facility: [facility] Address: [address] [place] [address] Performed By: #### 5 7021-8 ####DIEGO LABORATORYCLIA [id number] [address] [place] CT ABD/PEL W IVCONon -22-[address] ABD/PEL W IVCON * * [...] acute process in the abdomen or pelvis Tooling Manager: [facility] Transcribe Date/Time: Aug 30 2024 1:18P Dictated by : CATY ROJAS MD This examination was interpreted and the report reviewed and electronically signed by: CATY ROJAS MD on Aug 30 2024 1:25PM EST [id number] Normal [facility] Comprehensive metabolic 2000 panelon 08-30-2024 Albumin [Mass/Vol] 4.3 g/dL Normal 3.9-4.9 [facility] Comment on above: Order Comment: Speci men Type: BLOOD SPECIMENOrdering Facility: [facility] Address: [address] [place] [address] Performed By: #### 2 4323-8 ####[facility] LABORATORYCLIA [id number] [address] STATES OF [facility] ALP [Catalytic activity/Vol] 73 U/L Normal 34-123 [facility] Comment on above: Order Comment: Speci men Type: BLOOD SPECIMENOrdering Facility: [facility] Address: [address] [place] [address] Performed By: #### 2 4323-8 ####[facility]ORE[facility] LABORATORYCLIA [id number] [address] STATES [facility] ALT [Catalytic activity/Vol] 13 U/L Normal 7-38 [facility] Comment on above: Order Comment: Speci men Type: BLOOD SPECIMENOrdering Facility: [facility] Address: [address] [place] [address] Performed By: #### 2 4323-8 ####DIEGO LABORATORYCLIA [id number] [place] [address] [place] Anion gap [Moles/Vol] 10 mmol/L Normal 8-15 [facility] Comment on above: Order Comment: Speci men Type: BLOOD SPECIMENOrdering Facility: [facility] Address: [address] [place] [address] Performed By: #### 2 4323-8 ####DIEGO LABORATORYCLIA [id number] [place] [address] [place] AST [Catalytic activity/Vol] 19 U/L Normal 13-35 [facility] Comment on above: Order Comment: Speci men Type: BLOOD SPECIMENOrdering Facility: [facility] Address: [address] [place] [address] Performed By: #### 2 4323-8 ####DIEGO LABORATORYCLIA [id number] [address] [place] Bilirubin [Mass/Vol] 0.8 mg/dL Normal 0.2-1.3 [facility] Comment on above: Order Comment: Speci men Type: BLOOD SPECIMENOrdering Facility: [facility] Address: [address] [place] [address] Performed By: #### 2 4323-8 ####DIEGO LABORATORYCLIA [id number] [address] [place] Calcium [Mass/Vol] 9.4 mg/dL Normal 8.5-10.2 [facility] Comment on above: Order Comment: Speci men Type: BLOOD SPECIMENOrdering Facility: [facility] Address: [address] [place] [address] Performed By: #### 2 4323-8 ####DIEGO LABORATORYCLIA [id number] [place] [address] [place] Chloride [Moles/Vol] 103 mmol/L Normal 98-107 [facility] Comment on above: Order Comment: Speci men Type: BLOOD SPECIMENOrdering Facility: [facility] Address: [address] [place] [address] Performed By: #### 2 4323-8 ####DIEGO LABORATORYCLIA [id number] [address] [place] CO2 [Moles/Vol] 26 mmol/L Normal 22-30 [facility] Comment on above: Order Comment: Zoilai men Type: BLOOD SPECIMENOrdering Facility: [facility] Address: [address] [place] [address] Performed By: #### 2 4323-8 ####DIEGO LABORATORYCLIA [id number] [address] Creatinine [Mass/Vol] 1.13 mg/dL High 0.58-0.96 [facility] Comment on above: Order Comment: Speci men Type: BLOOD SPECIMENOrdering Facility: [facility] Address: [address] [place] [address] Performed By: #### 2 4323-8 ####DIEGO LABORATORYCLIA [id number] [address] Creatinine and Glomerular filtration rate.predicted panel (S/P/Bld) 50 mL/min/1.73m??? Low >=60 [facility] Comment on above: Order Comment: Speci men Type: BLOOD SPECIMENOrdering Facility: [facility] Address: [address] [place] [address] Result Comment: Tanja mated Glomerular Filtration Rate [...] Performed By: #### 2 4323-8 ####DIEGO LABORATORYCLIA [id number] [address] [place] Glucose [Mass/Vol] 113 mg/dL High 74-99 [facility] Comment on above: Order Comment: Jessica manfred Type: BLOOD SPECIMENOrdering Facility: [facility] Address: [address] [place] [address] Result Comment: The [place] Diabetes Association (ADA) provides guidance for cutoff [...] Standards of Medical Care in Diabetes 2016, [place] Diabetes Association. Diabetes Care. 2016.39(Suppl 1). Performed By: #### 2 4323-8 ####DIEGO LABORATORYCLIA [id number] [place] [address] [place] Potassium [Moles/Vol] 4.4 mmol/L Normal 3.7-5.1 [facility] Comment on above: Order Comment: Jessica shearer Type: BLOOD SPECIMENOrdering Facility: [facility] Address: [address] [place] [address] Performed By: #### 2 4323-8 ####DIEGO LABORATORYCLIA [id number] [place] [address] [place] Protein [Mass/Vol] 7.3 g/dL Normal 6.3-8.0 [facility] Comment on above: Order Comment: Jessica shearer Type: BLOOD SPECIMENOrdering Facility: [facility] Address: [address] [place] [address] Performed By: #### 2 4323-8 ####DIEGO LABORATORYCLIA [id number] [place] [address] [place] Sodium [Moles/Vol] 139 mmol/L Normal 136-144 [facility] Comment on above: Order Comment: Jessica shearer Type: BLOOD SPECIMENOrdering Facility: [facility] Address: [address] [place] [address] Performed By: #### 2 4323-8 ####DIEGO LABORATORYCLIA [id number] [place] [address] [place] Urea nitrogen [Mass/Vol] 14 mg/dL Normal 7-21 [facility] Comment on above: Order Comment: Speci men Type: BLOOD SPECIMENOrdering Facility: [facility] Address: [address] [id number] Performed By: #### 2 4323-8 ####DIEGO LABORATORYCLIA [id number] [place] [address] [place] ED NOTEon 08-30-2024 ED NOTE HNO ID: [id number] Author: NARESH GRAF RN Service: Nursing Author [...] all personal belongings exiting the facility. Normal [facility] ED PROV NOTEon 08-30-2024 ED PROV NOTE HNO ID: [id number] Author: SHAKILA RUIZ MD Service: ? Author [...] Abnormal; Notable for the following components: Abs [place] 0.91 (*) <0.87 k/uL All other components [...] Record Review (more content not included)... Normal [facility] Office Visiton 08-25-2024 Follow-up visit [id number] Manas Vital 1945 F Date Provider Department Center 08/25/2024 [id number] CASTILLO [facility] None Family History Problem Relation Age of Onset Dementia Maternal Grandmother Family Status - Relation Status Age at Maternal Grandmother Level of Service:57039 VA OFFICE/OUTPATIENT ESTABLISHED MOD MDM 30 MIN Reason for Visit and Comments: Dementia [30] Normal 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 Activities: watches tv, spends time with cat >>02/17/22 just went on vacation, walks in condo, plays cards, plays piano, visiting friends >>08/22/22 outside, TV, cat sits out with neighbor, yazdanism, >>02/26/23 walks, visits with neighbors, yazdanism, kids' sports games, just came back from vacation >>10/22/23 same >>02/25/24 visits with aide, getting to physical therapy, going on walks >>08/25/24 visits with aides, goes to [facility], goes to [facility] Exercise: walks around her house >>02/17/22 walking, weights >>08/22/22 walks around the condo or in her neighborhood >>02/26/23 walks >>10/22/23 walks >>02/25/24 walks, physical therapy >>08/25/24 walking, goint to [facility] Finances: meeting soon with Medicaid chief design drafter Healthcare Power of Record Tester: Yes, Daughter Elizabeth Financial Power of Record Tester: Yes, Daughter Elizabeth Living Will: Yes Guardian:No [...] sees her sometimes >>02/25/24 has 24 hour healthcare architect, Xochitl who is living with her, another [...] members. SW suggested that daughter check out [email or web address] to check out any other products that [...] resources give (more content not included)... Normal [facility] Progress Note Review of Systems Constitutional: Positive [...] and hallucinations. The patient is nervous/anxious. Normal [facility] Progress Note [facility] [address] [facility] [address] Dept: [phone] Dept Loc: [phone] Visit type: [facility] Follow Up Visit Reason for Visit: [...] Disease, hypertension, depression who presents to the [facility] for a follow-up visit. The patient [...] well. Hasn't complained about sciatica. Appetite: Good. 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 She has gained weight. [...] sinusitis 02/26/2023 Al (more content not included)... [facility] 36on 07-22-2024 36 Ordering provider: Gunjan Castillo Date of last office visit: 02/25/24 Date of next office visit: 08/25/24 Updated/Validated preferred pharmacy: Yes [email or web address] - [place], [place] - [address] [phone] Patient instructed to contact the pharmacy prior [...] of last refill (see medication tab): 12/28/23 [facility] [place] PET/CT BRAIN [facility]AG[facility] 04-26-2024 NM PET/CT BRAIN PLAQUE IMAGING [...] purposes. There are no significant incidental findings. Tooling Manager: TOSIN Transcribe Date/Time: May 04 2024 1:10P Dictated by : JOSUÉ MCCORMACK MD This examination was interpreted and the report reviewed and electronically signed by: JOSUÉ MCCORMACK MD on May 04 2024 1:14PM EST [id number] Normal [place] [facility] CYNDEE VITAL ([id number]) 1945 F Date Time Provider Department 04/18/24 AMILCAR BRADFORD MD [facility] During your visit today, we recorded the following information about you: Abdon Moctezuma, RT(R) 04/18/2024 11:41 AM Signed CYNDEE VITAL [id number] DOS: 04/26/24 PET INJ: 1430 PET 2: 1530 APPT NOTES: DO NOT SUBMIT AUTH TO INSURANCE, BILLED TO [employer] G[employer] [id number] PET BRAIN AMYVID [employer]SM[employer]M PET 2 ONLY Dasha Bradley 04/18/2024 11:50 AM Signed Scheduled as requested 04/26 @ 1530 Allergies As of Date: 04/18/2024 (No Known Allergies) Date Reviewed: 01/13/2024 Reviewed by: Sujatha Mckee, PAULETTE - Fully Assessed Reason for Visit: [...] Status:Closed by ABDON MOCTEZUMA on 04/18/24 Normal [facility] MR Brain WO contraston 01-31 [facility] Absolute lymphocyte countOrd ered By: Emi Cook on 01-26-2024 Lymphocytes Auto (Unsp spec) [#/Vol] 1.56 10*3/uL 0.83-4.51 [facility] Automated lymphocyte count a s percentage of total leukocytesOrdered By: Emi Cook on 01-26-2024 Lymphocytes/100 WBC Auto (Unsp spec) 23.9 % 19-41 [facility] Basophil percentageOrdered B y: Emi Cook on 01-26-2024 Basophils/100 WBC (Bld) 0.8 % 0-1 [facility] Bilirubin [Mass/Vol] 0.50 mg/dL 0.20-1.00 [facility] Comment on above: For patients on eltr ombopag therapy, use of Dimension [place] TBIL is not recommended. Chloride [Moles/Vol] 105 mmol/L 98-107 [facility] Eosinophils/100 WBC (Bld) 2.8 % 0-5 [facility] Glucose [Mass/Vol] 99 mg/dL 74-106 [facility] Hemoglobin (Bld) [Mass/Vol] 12.8 g/dL 12.0-15.0 [facility] Monocytes/100 WBC (Bld) 11.5 % 0-10 [facility] Neutrophils (Bld) [#/Vol] 4.0 10*3/uL 2.0-7.7 [facility] Neutrophils/100 WBC (Bld) 60.7 % 47-70 [facility] Potassium [Moles/Vol] 4.2 mmol/L 3.5-5.1 [facility] Protein [Mass/Vol] 7.4 g/dL 6.4-8.2 [facility] Sodium [Moles/Vol] 140 mmol/L 136-145 [facility] WBC (Bld) [#/Vol] 6.5 10*3/uL 4.4-11.0 [facility] Culture, urineOrdered By: Do ra Cook on 01-26-2024 Bacteria identified Cx Nom (U) Culture exhibits no growth. [facility] Determination of erythrocyte mean corpuscular volume (MCV)Ordered By: Emi Cook on 01-26-2024 MCV (RBC) [Entitic vol] 94.1 fL 81-99 [facility] Erythrocyte distribution wid th ratioOrdered By: Emi Cook on 01-26-2024 Erythrocyte distribution width (RBC) [Ratio] 13.9 % 11.6-14.6 [facility] Erythrocyte distribution wid th standard deviationOrdered By: Emi Cook on 01-26-2024 Erythrocyte distribution width (RBC) [Entitic vol] 47.3 fL 35.1-43.9 [facility] Hematocrit Auto (Bld) [Volum e fraction]Ordered By: Emi Cook on 01-26-2024 Hematocrit (Bld) [Volume fraction] 39.9 % 37-47 [facility] Immature granulocytes/100 WB C Auto (Bld)Ordered By: Emi Cook on 01-26-2024 Immature granulocytes/100 WBC (Bld) 0.300 % 0.0-0.9 [facility] Comment on above: IG% - Immature Granu locytes (promyelocytes, myelocytes and metamyelocytes) > 1% indicates that a LEFT SHIFT is Present. Laboratory - Chemistry and C hemistry - challengeOrdered By: Emi Cook on 01-26-2024 Albumin/Globulin [Mass ratio] 0.9 {ratio} 0.9-2.4 [facility] ALP [Catalytic activity/Vol] 106 U/L 45-117 [facility] ALT [Catalytic activity/Vol] 24 U/L 13-56 [facility] CO2 [Moles/Vol] 29.0 mmol/L 21.0-32.0 [facility] Cobalamin (Vitamin B12) [Mass/Vol] 908 pg/mL 211-911 [facility] Globulin (S) [Mass/Vol] 3.8 g/dL 2.2-4.2 [facility] Urea nitrogen/Creatinine [Mass ratio] 13.4 mg/mg 10-20 [facility] Laboratory - Chemistry and C hemistry - challengeon 01-26-2024 Bilirubin Ql (U) Negative [facility] Glucose Ql (U) Negative [facility] Ketones Ql (U) Negative [facility] pH (U) 6.5 [pH] [facility] Specific gravity (U) [Rel density] 1.015 [facility] Urobilinogen (U) [Mass/Vol] 0.1439396 mg/dL [facility] Laboratory - Hematology and Cell countsOrdered By: Emi Cook on 01-26-2024 MCH (RBC) [Entitic mass] 30.2 pg 27.0-32.0 [facility] MCHC (RBC) [Mass/Vol] 32.1 g/dL 32-36 [facility] Nucleated RBC/100 WBC (Bld) [Ratio] 0 % 0-5 [facility] Platelet mean volume (Bld) [Entitic vol] 9.5 fL 6.2-12.0 [facility] Platelets (Bld) [#/Vol] 302 10*3/uL 150-450 [facility] Laboratory - Hematology and Cell countson 01-26-2024 Hemoglobin Ql (U) Hemolyzed [facility] Laboratory - Specimen inform ationon 01-26-2024 Clarity (U) Clear [facility] Color (U) YELLOW [facility] Laboratory - Urinalysison Nitrite Ql (U) Negative [facility] Protein Ql (U) Negative [facility] No Panel InformationOrdered By: Emi Cook on 01-26-2024 Estimated GFR (MDRD) Amer 72 mL/min >60 [facility] Comment on above: GFR Calc Estimated GFR (MDRD) Non-Af Amer 59 mL/min >60 [facility] Comment on above: Non- GFR Calc No Panel Informationon 01-25 Urine Leukocytes Negatve [facility] Urine Non-Hemolyzed Blood Trace [facility] RBC Auto (Bld) [#/Vol]Ordere d By: Emi Cook on 01-26-2024 RBC (Bld) [#/Vol] 4.24 10*6/uL 4.2-5.4 [facility] Serum or plasma calcitriol m easurement (mass/volume)Ordered By: Emi Cook on 01-26-2024 1,25-dihydroxyvitamin D3 [Mass/Vol] 64.8 pg/mL 24.8-81.5 [facility] Comment on above: Performed at: - [address] [id number] Director: Amirah Menard MD, Phone: [phone] Serum or plasma calcium yahaira urement (mass/volume)Ordered By: Emi Cook on 01-26-2024 Calcium [Mass/Vol] 9.2 mg/dL 8.5-10.1 [facility] Serum or plasma creatinine m easurement (mass/volume)Ordered By: Emi Cook on 01-26-2024 Creatinine [Mass/Vol] 0.97 mg/dL 0.55-1.02 [facility] Comment on above: The validity of the calculated GFR & GFRAA in patients over 70 years has not been determined. Clinical correlation is essential. Serum or plasma thyroid stim ulating hormone (TSH) measurement (units/volume)Ordered By: Emi Cook on 01-26-2024 TSH Qn 2.75 uIU/mL 0.358-3.74 [facility] Serum or plasma urea nitroge n measurement (mass/volume)Ordered By: Emi Cook on 01-26-2024 Urea nitrogen [Mass/Vol] 13 mg/dL 7-18 [facility] Thin prep Papanicolaou smear with manual screeningOrdered By: Emi Cook on 01-26-2024 Thin prep Papanicolaou smear with manual screening 3.6 g/dL 3.2-5.0 [facility] Thin prep Papanicolaou smear with manual screening 19 U/L 15-37 [facility] Thin prep Papanicolaou smear with manual screening 6 5-15 [facility] ALLIED HEALTHon 01-13-2024 ALLIED HEALTH HNO ID: [id number] Author: ESPERANZA KAPADIA RT(R) Service: Radiology Author [...] PATIENT PRESENTS WITH AN IMPLANTABLE OR ATTACHED BASIN OPERATOR: No RADIOLOGY DEPARTMENT: CT; Exam(s) Completed: Brain and Spine PERIPHERAL IV DATA: Not applicable SIGNED BY: RT Traci(R) January 13, 2024 12:20 PM Normal [facility] Basic metabolic 2000 panelon 01-13-2024 Anion gap [Moles/Vol] 11 mmol/L Normal 9-18 [facility] Comment on above: Order Comment: Specspencer shearer Type: BLOOD SPECIMENOrdering Facility: [facility] Address: [address] [place] [address] Performed By: #### 2 4321-2 ####[facility] LABORATORYCLIA [id number] [place] [id number] [place] Calcium [Mass/Vol] 9.3 mg/dL Normal 8.5-10.2 [facility] Comment on above: Order Comment: Jessica shearer Type: BLOOD SPECIMENOrdering Facility: [facility] Address: [address] [place] [address] Performed By: #### 2 4321-2 ####DIE[facility] LABORATORYCLIA [id number] [place] [address] [place] Chloride [Moles/Vol] 96 mmol/L Low 97-105 [facility] Comment on above: Order Comment: Speci men Type: BLOOD SPECIMENOrdering Facility: [facility] Address: [address] [place] [address] Performed By: #### 2 4321-2 ####DIEGO LABORATORYCLIA [id number] [address] [place] CO2 [Moles/Vol] 27 mmol/L Normal 22-30 [facility] Comment on above: Order Comment: Speci men Type: BLOOD SPECIMENOrdering Facility: [facility] Address: [address] [place] [address] Performed By: #### 2 4321-2 ####[facility] LABORATORYCLIA [id number] [address] Creatinine [Mass/Vol] 0.85 mg/dL Normal 0.58-0.96 [facility] Comment on above: Order Comment: Speci men Type: BLOOD SPECIMENOrdering Facility: [facility] Address: [address] [place] [address] Performed By: #### 2 4321-2 ####DIEGO LABORATORYCLIA [id number] [address] Creatinine and Glomerular filtration rate.predicted panel (S/P/Bld) 71 mL/min/1.73m??? Normal >=60 [facility] Comment on above: Order Comment: Speci men Type: BLOOD SPECIMENOrdering Facility: [facility] Address: [address] [place] [address] Result Comment: Tanja mated Glomerular Filtration Rate [...] Performed By: #### 2 4321-2 ####DIEGO LABORATORYCLIA [id number] [place] [address] [place] Glucose [Mass/Vol] 108 mg/dL High 74-99 [facility] Comment on above: Order Comment: Jessica shearer Type: BLOOD SPECIMENOrdering Facility: [facility] Address: [address] [place] [address] Result Comment: The [place] Diabetes Association (ADA) provides guidance for cutoff [...] Standards of Medical Care in Diabetes 2016, [place] Diabetes Association. Diabetes Care. 2016.39(Suppl 1). Performed By: #### 2 4321-2 ####DIEGO LABORATORYCLIA [id number] [place] [id number] [place] Potassium [Moles/Vol] 3.7 mmol/L Normal 3.7-5.1 [facility] Comment on above: Order Comment: Jessica shearer Type: BLOOD SPECIMENOrdering Facility: [facility] Address: [address] [place] [address] Performed By: #### 2 4321-2 ####DIEGO LABORATORYCLIA [id number] [place] [id number] [place] Sodium [Moles/Vol] 134 mmol/L Low 136-144 [facility] Comment on above: Order Comment: Jessica manfred Type: BLOOD SPECIMENOrdering Facility: [facility] Address: [address] [place] [address] Performed By: #### 2 4321-2 ####DIEGO LABORATORYCLIA [id number] [place] [id number] [place] Urea nitrogen [Mass/Vol] 19 mg/dL Normal 7-21 [facility] Comment on above: Order Comment: Speci men Type: BLOOD SPECIMENOrdering Facility: [facility] Address: [address] [place] [address] Performed By: #### 2 4321-2 ####DIEGO LABORATORYCLIA [id number] [address] CBC panel Auto (Bld)on 01-12 Erythrocyte distribution width (RBC) [Ratio] 13.0 % Normal 11.5-15.0 [facility] Comment on above: Order Comment: Speci men Type: BLOOD SPECIMENOrdering Facility: [facility] Address: [address] [place] [address] Performed By: #### 5 8410-2 ####DIEGO LABORATORYCLIA [id number] [address] Hematocrit (Bld) [Volume fraction] 38.4 % Normal 36.0-46.0 [facility] Comment on above: Order Comment: Speci men Type: BLOOD SPECIMENOrdering Facility: [facility] Address: [address] [place] [address] Performed By: #### 5 8410-2 ####DIEGO LABORATORYCLIA [id number] [address] [place] Hemoglobin (Bld) [Mass/Vol] 13.6 g/dL Normal 11.5-15.5 [facility] Comment on above: Order Comment: Speci men Type: BLOOD SPECIMENOrdering Facility: [facility] Address: [address] [place] [address] Performed By: #### 5 8410-2 ####DIEGO LABORATORYCLIA [id number] [address] MCH (RBC) [Entitic mass] 31.6 pg Normal 26.0-34.0 [facility] Comment on above: Order Comment: Speci men Type: BLOOD SPECIMENOrdering Facility: [facility] Address: [address] [place] [address] Performed By: #### 5 8410-2 ####DIEGO LABORATORYCLIA [id number] [address] [place] MCHC (RBC) [Mass/Vol] 35.4 g/dL Normal 30.5-36.0 [facility] Comment on above: Order Comment: Speci men Type: BLOOD SPECIMENOrdering Facility: [facility] Address: [address] [place] [address] Performed By: #### 5 8410-2 ####DIEGO LABORATORYCLIA [id number] [address] MCV (RBC) [Entitic vol] 89.1 fL Normal 80.0-100.0 [facility] Comment on above: Order Comment: Speci men Type: BLOOD SPECIMENOrdering Facility: [facility] Address: [address] [place] [address] Performed By: #### 5 8410-2 ####DIEGO LABORATORYCLIA [id number] [address] Nucleated RBC (Bld) [#/Vol] 10*3/uL Normal <0.01 [facility] Comment on above: Order Comment: Speci men Type: BLOOD SPECIMENOrdering Facility: [facility] Address: [address] [place] [address] Performed By: #### 5 8410-2 ####DIEGO LABORATORYCLIA [id number] [address] Platelet mean volume (Bld) [Entitic vol] 9.2 fL Normal 9.0-12.7 [facility] Comment on above: Order Comment: Speci men Type: BLOOD SPECIMENOrdering Facility: [facility] Address: [address] [place] [address] Performed By: #### 5 8410-2 ####DIEGO LABORATORYCLIA [id number] [address] [place] Platelets (Bld) [#/Vol] 322 10*3/uL Normal 150-400 [facility] Comment on above: Order Comment: Speci men Type: BLOOD SPECIMENOrdering Facility: [facility] Address: [address] [place] [address] Performed By: #### 5 8410-2 ####DIEGO LABORATORYCLIA [id number] [place] [address] [place] RBC (Bld) [#/Vol] 4.31 10*6/uL Normal 3.90-5.20 [facility] Comment on above: Order Comment: Speci men Type: BLOOD SPECIMENOrdering Facility: [facility] Address: [address] [place] [address] Performed By: #### 5 8410-2 ####[facility] LABORATORYCLIA [id number] [place] [address] [place] WBC (Bld) [#/Vol] 13.59 10*3/uL High 3.70-11.00 [facility] Comment on above: Order Comment: Speci men Type: BLOOD SPECIMENOrdering Facility: [facility] Address: [address] [place] [address] Performed By: #### 5 8410-2 ####[facility] LABORATORYCLIA [id number] [address] BRAIN WO IVCONon 01-13-20 24 [...] C5-C6 foraminal stenosis. No significant canal stenosis. Finish Painter (topogram) images: No significant findings. IMPRESSION: No CT evidence of acute intracranial abnormality. 5 cm LEFT parietal scalp hematoma without underlying calvarial fracture. No evidence of acute cervical spine fracture. 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 Tooling Manager: TOSIN Transcribe Date/Time: Jan 13 2024 12:40P Dictated by : ADDISON GUTIERREZ DO This examination was interpreted and the report reviewed and electronically signed by: ADDISON GUTIERREZ DO on Jan 13 2024 1:08PM EST [id number] [facility] CT CERVICAL SPINE WO IVCONon 01-13-2024 [...] C5-C6 foraminal stenosis. No significant canal stenosis. Finish Painter (topogram) images: No significant findings. IMPRESSION: No CT evidence of acute intracranial abnormality. 5 cm LEFT parietal scalp hematoma without underlying calvarial fracture. No evidence of acute cervical spine fracture. 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 Tooling Manager: PSCB Transcribe Date/Time: Jan 13 2024 12:40P Dictated by : ADDISON GUTIERREZ DO This examination was interpreted and the report reviewed and electronically signed by: ADDISON GUTIERREZ DO on Jan 13 2024 1:08PM EST [id number] [facility] ED NOTEon 01-13-2024 ED NOTE HNO ID: [id number] Author: BETTY GAFFNEY, RN Service: Nursing Author Type: Registered Nurse [...] off ED in no distress, with son. [facility] ED NOTE HNO ID: [id number] Author: BETTY GAFFNEY RN Service: Nursing Author Type: Registered Nurse Type: ED Notes Filed: 01/13/2024 12:26 Note Text: Pt back to Ed from CT [facility] ED NOTE HNO ID: [id number] Author: BETTY GAFFNEY RN Service: Nursing Author Type: Registered Nurse Type: ED Notes Filed: 01/13/2024 11:55 Note Text: Pt to CT with tech [facility] ED NOTE HNO ID: [id number] Author: SUJATHA MCKEE RN Service: Nursing Author Type: Registered Nurse Type: ED Notes Filed: 01/13/2024 11:20 Note Text: Patient has been taking flexeril 3x daily and has been unsteady. She fell off the toilet this morning, large hematoma on back of head. No thinners, no LOC per her daughter who witnessed the fall. [facility] ED PROV NOTEon 01-13-2024 ED PROV NOTE HNO ID: [id number] Author: SHAKILA WARE DO Service: Emergency Medicine [...] with grade 1 C6 on C7 spondylolisthesis. Tooling Manager: TOSIN Transcribe Date/Time: Jan 13 2024 12:40P [...] with grade 1 C6 on C7 spondylolisthesis. Tooling Manager: TOSIN Transcribe Date/Time: Jan 13 2024 12:40P Dictated by : ADDISON GUTIERREZ DO This examination was interpreted and the report reviewed and electronically signed by: ADDISON GUTIERREZ DO on Jan 13 2024 1:08PM EST Meds Given During Visit ED Me (more content not included)... Normal [facility] Urinalysis complete panel (U )on 01-13-2024 Bacteria LM.HPF (Urine sed) [#/Area] Few Abnormal None Seen [facility] Comment on above: Order Comment: Speci men Type: URINE SPECIMENOrdering Facility: [facility] Address: [address] [place] [address] Performed By: #### 2 4356-8 ####DIEGO LABORATORYCLIA [id number] [place] [address] [place] Bilirubin Ql (U) Negative Normal Negative [facility] Comment on above: Order Comment: Speci men Type: URINE SPECIMENOrdering Facility: [facility] Address: [address] [place] [address] Performed By: #### 2 4356-8 ####DIE[facility] LABORATORYCLIA [id number] [address] CALCIUM OXALATE CRYSTALS (UA) Moderate Abnormal None Seen [facility] Comment on above: Order Comment: Speci men Type: URINE SPECIMENOrdering Facility: [facility] Address: [address] [place] [address] Performed By: #### 2 4356-8 ####DIE[facility] LABORATORYCLIA [id number] [address] [place] Clarity (Unsp spec) Clear Normal Clear [facility] Comment on above: Order Comment: Speci men Type: URINE SPECIMENOrdering Facility: [facility] Address: [address] [place] [address] Performed By: #### 2 4356-8 ####D[facility] LABORATORYCLIA [id number] [address] Color (U) Yellow Normal Yellow [facility] Comment on above: Order Comment: Speci men Type: URINE SPECIMENOrdering Facility: [facility] Address: [address] [place] [address] Performed By: #### 2 4356-8 ####DIE[facility] LABORATORYCLIA [id number] [place] [address] [place] Epithelial cells LM.HPF (Urine sed) [#/Area] Few Normal [facility] Comment on above: Order Comment: Speci men Type: URINE SPECIMENOrdering Facility: [facility] Address: [address] [place] [address] Performed By: #### 2 4356-8 ####DIE[facility] LABORATORYCLIA [id number] [place] [address] [place] Glucose Test strip (U) [Mass/Vol] Negative Normal Negative [facility] Comment on above: Order Comment: Speci men Type: URINE SPECIMENOrdering Facility: [facility] Address: [address] [place] [address] Performed By: #### 2 4356-8 ####DIE[facility] LABORATORYCLIA [id number] [place] [address] [place] Hemoglobin Ql (U) Trace Abnormal Negative [facility] Comment on above: Order Comment: Speci men Type: URINE SPECIMENOrdering Facility: [facility] Address: [address] [place] [address] Performed By: #### 2 4356-8 ####DIE[facility] LABORATORYCLIA [id number] [place] [address] [place] Ketones Ql (U) Negative Normal Negative [facility] Comment on above: Order Comment: Speci men Type: URINE SPECIMENOrdering Facility: [facility] Address: [address] [place] [address] Performed By: #### 2 4356-8 ####DIE[facility] LABORATORYCLIA [id number] [place] [address] [place] Leukocyte esterase Test strip Ql (U) Negative Normal Negative [facility] Comment on above: Order Comment: Speci men Type: URINE SPECIMENOrdering Facility: [facility] Address: [address] [place] [address] Performed By: #### 2 4356-8 ####DIE[facility] LABORATORYCLIA [id number] [place] [address] [place] Nitrite Ql (U) Negative Normal Negative [facility] Comment on above: Order Comment: Speci men Type: URINE SPECIMENOrdering Facility: [facility] Address: [address] [place] [address] Performed By: #### 2 4356-8 ####DIE[facility] LABORATORYCLIA [id number] [address] pH (U) 6.0 [pH] Normal 5.0-8.0 [facility] Comment on above: Order Comment: Speci men Type: URINE SPECIMENOrdering Facility: [facility] Address: [address] [place] [address] Performed By: #### 2 4356-8 ####DIE[facility] LABORATORYCLIA [id number] [place] [address] [place] Protein (U) [Mass/Vol] Negative Normal Negative [facility] Comment on above: Order Comment: Speci men Type: URINE SPECIMENOrdering Facility: [facility] Address: [address] [place] [address] Performed By: #### 2 4356-8 ####DIE[facility] LABORATORYCLIA [id number] [place] [address] [place] RBC LM.HPF (Urine sed) [#/Area] 0-3 /HPF Normal 0-3 /HPF [facility] Comment on above: Order Comment: Speci men Type: URINE SPECIMENOrdering Facility: [facility] Address: [address] [place] [address] Performed By: #### 2 4356-8 ####DIEGO LABORATORYCLIA [id number] [address] [place] Specific gravity (U) [Rel density] 1.020 Normal 1.005-1.030 [facility] Comment on above: Order Comment: Speci men Type: URINE SPECIMENOrdering Facility: [facility] Address: [address] [place] [address] Performed By: #### 2 4356-8 ####DIE[facility] LABORATORYCLIA [id number] [address] Urobilinogen Ql (U) 0.2 EU/dL Normal 0.2-1.0 EU/dL [facility] Comment on above: Order Comment: Speci men Type: URINE SPECIMENOrdering Facility: [facility] Address: [address] [place], [place] [address] Performed By: #### 2 4356-8 ####[facility] LABORATORYCLIA [id number] [address] WBC LM.HPF (Urine sed) [#/Area] 0-5 /HPF Normal 0-5 /HPF [facility] Comment on above: Order Comment: Speci men Type: URINE SPECIMENOrdering Facility: [facility] Address: [address] [place], [place] [address] Performed By: #### 2 4356-8 ####[facility] LABORATORYCLIA [id number] [address] ALLIED HEALTHon 01-03-2024 ALLIED HEALTH HNO ID: [id number] Author: LETICIA HENDRIX RT(Colette) Service: Radiology Author Type: Technologist Type: [...] PATIENT PRESENTS WITH AN IMPLANTABLE OR ATTACHED BASIN OPERATOR: No ALLERGIES: Reviewed and unchanged CONTRAST ALLERGY: [...] PERIPHERAL IV DATA: Inpatient - refer to [facility] documentation RADIOLOGY DEPARTMENT: CT; Exam(s) Completed: Brain , CTA Abdomen Pelvis, and CTA Chest SIGNATURE: Leticia Hendrix RT(R) PATIENT NAME: Cyndee Vital DATE: January 03, 2024 TIME: 4:39 AM Normal [facility] CBC W Auto Differential pane l (Bld)on 01-03-2024 Basophils (Bld) [#/Vol] 10*3/uL Normal <0.11 [facility] Comment on above: Order Comment: Speci men Type: BLOOD SPECIMENOrdering Facility: [facility] Address: [address] [place] [address] Performed By: #### 5 7021-8 ####DIEGO LABORATORYCLIA [id number] [place] [address] [place] Basophils/100 WBC (Bld) 0.1 % Normal [facility] Comment on above: Order Comment: Speci men Type: BLOOD SPECIMENOrdering Facility: [facility] Address: [address] [place] [address] Performed By: #### 5 7021-8 ####DIE[facility] LABORATORYCLIA [id number] [place] [address] [place] Differential cell count method Nom (Bld) Auto Normal [facility] Comment on above: Order Comment: Speci men Type: BLOOD SPECIMENOrdering Facility: [facility] Address: [address] [place] [address] Performed By: #### 5 7021-8 ####DIEGO LABORATORYCLIA [id number] [place] [address] [place] Eosinophils (Bld) [#/Vol] 10*3/uL Normal <0.46 [facility] Comment on above: Order Comment: Speci men Type: BLOOD SPECIMENOrdering Facility: [facility] Address: [address] [place] [address] Performed By: #### 5 7021-8 ####DIE[facility] LABORATORYCLIA [id number] [address] [place] Eosinophils/100 WBC (Bld) 0.0 % Normal [facility] Comment on above: Order Comment: Speci men Type: BLOOD SPECIMENOrdering Facility: [facility] Address: [address] [place] [address] Performed By: #### 5 7021-8 ####D[facility] LABORATORYCLIA [id number] [address] Erythrocyte distribution width (RBC) [Ratio] 13.1 % Normal 11.5-15.0 [facility] Comment on above: Order Comment: Speci men Type: BLOOD SPECIMENOrdering Facility: [facility] Address: [address] [place] [address] Performed By: #### 5 7021-8 ####DIE[facility] LABORATORYCLIA [id number] [address] Hematocrit (Bld) [Volume fraction] 44.7 % Normal 36.0-46.0 [facility] Comment on above: Order Comment: Speci men Type: BLOOD SPECIMENOrdering Facility: [facility] Address: [address] [place] [address] Performed By: #### 5 7021-8 ####DIE[facility] LABORATORYCLIA [id number] [address] [place] Hemoglobin (Bld) [Mass/Vol] 15.3 g/dL Normal 11.5-15.5 [facility] Comment on above: Order Comment: Speci men Type: BLOOD SPECIMENOrdering Facility: [facility] Address: [address] [place] [address] Performed By: #### 5 7021-8 ####DIE[facility] LABORATORYCLIA [id number] [address] [place] Immature granulocytes (Bld) [#/Vol] 0.09 10*3/uL Normal <0.10 [facility] Comment on above: Order Comment: Speci men Type: BLOOD SPECIMENOrdering Facility: [facility] Address: [address] [place] [address] Performed By: #### 5 7021-8 ####D[facility] LABORATORYCLIA [id number] [address] Immature granulocytes/100 WBC (Bld) 0.8 % Normal [facility] Comment on above: Order Comment: Speci men Type: BLOOD SPECIMENOrdering Facility: [facility] Address: [address] [place] [address] Performed By: #### 5 7021-8 ####[facility] LABORATORYCLIA [id number] [address] Lymphocytes (Bld) [#/Vol] 1.54 10*3/uL Normal 1.00-4.00 [facility] Comment on above: Order Comment: Speci men Type: BLOOD SPECIMENOrdering Facility: [facility] Address: [address] [place] [address] Performed By: #### 5 7021-8 ####D[facility] LABORATORYCLIA [id number] [address] Lymphocytes/100 WBC (Bld) 13.3 % Normal [facility] Comment on above: Order Comment: Speci men Type: BLOOD SPECIMENOrdering Facility: [facility] Address: [address] [place] [address] Performed By: #### 5 7021-8 ####D[facility] LABORATORYCLIA [id number] [address] MCH (RBC) [Entitic mass] 31.4 pg Normal 26.0-34.0 [facility] Comment on above: Order Comment: Speci men Type: BLOOD SPECIMENOrdering Facility: [facility] Address: [address] [place] [address] Performed By: #### 5 7021-8 ####DIE[facility] LABORATORYCLIA [id number] [place] [address] [place] MCHC (RBC) [Mass/Vol] 34.2 g/dL Normal 30.5-36.0 [facility] Comment on above: Order Comment: Speci men Type: BLOOD SPECIMENOrdering Facility: [facility] Address: [facility] [place] [address] Performed By: #### 5 7021-8 ####D[facility] LABORATORYCLIA [id number] [address] [place] MCV (RBC) [Entitic vol] 91.8 fL Normal 80.0-100.0 [facility] Comment on above: Order Comment: Speci men Type: BLOOD SPECIMENOrdering Facility: [facility] Address: [address] [place] [address] Performed By: #### 5 7021-8 ####[facility] LABORATORYCLIA [id number] [address] [place] Monocytes (Bld) [#/Vol] 0.47 10*3/uL Normal <0.87 [facility] Comment on above: Order Comment: Speci men Type: BLOOD SPECIMENOrdering Facility: [facility] Address: [address] [place] [address] Performed By: #### 5 7021-8 ####D[facility] LABORATORYCLIA [id number] [address] Monocytes/100 WBC (Bld) 4.1 % Normal [facility] Comment on above: Order Comment: Speci men Type: BLOOD SPECIMENOrdering Facility: [facility] Address: [address] [place] [address] Performed By: #### 5 7021-8 ####DIE[facility] LABORATORYCLIA [id number] [place] [address] [place] Neutrophils (Bld) [#/Vol] 9.49 10*3/uL High 1.45-7.50 [facility] Comment on above: Order Comment: Speci men Type: BLOOD SPECIMENOrdering Facility: [facility] Address: [address] [place] [address] Performed By: #### 5 7021-8 ####D[facility] LABORATORYCLIA [id number] [place] [address] [place] Neutrophils/100 WBC (Bld) 81.7 % Normal [facility] Comment on above: Order Comment: Speci men Type: BLOOD SPECIMENOrdering Facility: [facility] Address: [address] [place] [address] Performed By: #### 5 7021-8 ####DIE[facility] LABORATORYCLIA [id number] [place] [address] [place] Nucleated RBC (Bld) [#/Vol] 10*3/uL Normal <0.01 [facility] Comment on above: Order Comment: Speci men Type: BLOOD SPECIMENOrdering Facility: [facility] Address: [address] [place] [address] Performed By: #### 5 7021-8 ####DIE[facility] LABORATORYCLIA [id number] [place] [address] [place] Nucleated RBC/100 WBC (Bld) [Ratio] 0.0 /100 WBC Normal [facility] Comment on above: Order Comment: Speci men Type: BLOOD SPECIMENOrdering Facility: [facility] Address: [address] [place] [address] Performed By: #### 5 7021-8 ####DIE[facility] LABORATORYCLIA [id number] [place] [address] [place] Platelet mean volume (Bld) [Entitic vol] 9.9 fL Normal 9.0-12.7 [facility] Comment on above: Order Comment: Speci men Type: BLOOD SPECIMENOrdering Facility: [facility] Address: [address] [place] [address] Performed By: #### 5 7021-8 ####D[facility] LABORATORYCLIA [id number] [place] [address] [place] Platelets (Bld) [#/Vol] 309 10*3/uL Normal 150-400 [facility] Comment on above: Order Comment: Speci men Type: BLOOD SPECIMENOrdering Facility: [facility] Address: [address] [place] [address] Performed By: #### 5 7021-8 ####DIE[facility] LABORATORYCLIA [id number] [address] [place] RBC (Bld) [#/Vol] 4.87 10*6/uL Normal 3.90-5.20 [facility] Comment on above: Order Comment: Speci men Type: BLOOD SPECIMENOrdering Facility: [facility] Address: [address] [address] [place], [place] [id number] Performed By: #### 5 7021-8 ####[facility] LABORATORYCLIA [id number] [place] [id number] [facility] WBC (Bld) [#/Vol] 11.60 10*3/uL High 3.70-11.00 [facility] Comment on above: Order Comment: Speci men Type: BLOOD SPECIMENOrdering Facility: [facility] Address: [address] [place] [address] Performed By: #### 5 7021-8 ####[facility] LABORATORYCLIA [id number] [address] CNDSon 01-03-2024 CNDS HNO ID: [id number] Author: ZAC HENAO MD Service: Hospital Medicine [...] MEDICAL TEAM: My Main Hospital Doctor: Nick Morgan MD Primary Care Provider: Emi Cook APRN.SALES ENABLEMENT CONSULTANT My Medical Team Members: Treatment Team: Attending Provider: Nick Morgan MD MY CONDITION AT DISCHARGE: Stable REASON [...] to call for appointment?: Yes Emi Cook, PROBATION AND PATROL AGENT.[facility] [phone] [address] [place] [phone] PCP Requested Referral Additional Provider to Provider Information: No notes on file Active Hospital Problems as of 01/03/2024 Noted - Resolved POA Hospital Back pain 01/03/2024 - Present Unknown Resolved Hospital Problems as of 01/03/2024 None Transitions of Care Critical Issues: HENDRIX MEDICATION CHANGES: none LABS AND PROCEDURES PENDING AT DISCHARGE: No pending results. FOLLOW-UP APPOINTMENTS ALREADY SCHEDULED WITH A [facility] PROVIDER: No future appointments. ALLERGIES No [...] Provider, RN, Patient I have performed the gicf-xn-faod and relevant services for a total of < 30 minutes. SIGNATURE: Zac Henao MD DATE: January 03, 2024 TIME: 10:20 AM Normal [facility] CRP SerPl-mCncon 01-03-2024 CRP [Mass/Vol] mg/L Normal <0.9 [facility] Comment on above: Order Comment: Speci men Type: BLOOD SPECIMENOrdering Facility: [facility] Address: [address] [place] [address] Performed By: #### 1 988-5, 2777-1, [id number], 78510-2 ####[facility] LABORATORYCLIA [id number] [address] [place] BRAIN WO IVCONon 01-03-[address] BRAIN WO IVCON * * [...] base and imaged soft tissues are unremarkable. Finish Painter (topogram) images: No additional findings. IMPRESSION: No acute intracranial abnormality identified Mild chronic intracranial changes as described Tooling Manager: TOSIN Transcribe Date/Time: Jan 03 2024 5:23A Dictated by : CHUY DAVIS MD This examination was interpreted and the report reviewed and electronically signed by: CHUY DAVIS MD on Jan 03 2024 5:26AM EST [id number] [facility] CTA ABD/PELV W IVCONon 01-03 CTA [...] Please consider direct visualization as necessary. Diverticulosis Tooling Manager: TOSIN Transcribe Date/Time: Jan 03 2024 5:44A Dictated by : SATYA SINGH MD This examination was interpreted and the report reviewed and electronically signed by: SATYA SINGH MD on Jan 03 2024 5:52AM EST [id number] Normal [facility] CTA CHEST (GATED) WO/W IVCON on [...] Please consider direct visualization as necessary. Diverticulosis Tooling Manager: TOSIN Transcribe Date/Time: Jan 03 2024 5:44A Dictated by : SATYA SINGH MD This examination was interpreted and the report reviewed and electronically signed by: SATYA SINGH MD on Jan 03 2024 5:52AM EST [id number] Normal [facility] Comprehensive metabolic 2000 panelon 01-03-2024 Albumin [Mass/Vol] 4.5 g/dL Normal 3.9-4.9 [facility] Comment on above: Order Comment: Jessica shearer Type: BLOOD SPECIMEN [facility] Address: [address] [place] [address] Performed By: #### 3 040-3, 58384-7, 41747-4, 60660-3, [id number] #### [facility] CLIA [id number] [address] [place] [address] [place] ALP [Catalytic activity/Vol] 127 U/L High 34-123 [facility] Comment on above: Order Comment: Jessica shearer Type: BLOOD SPECIMEN [facility] Address: [address] [place] [address] Performed By: #### 3 040-3, 07653-0, 85460-2, 46168-3, [id number] #### [facility] CLIA [id number] [address] [place] [address] [place] ALT [Catalytic activity/Vol] 24 U/L Normal 7-38 [facility] Comment on above: Order Comment: Speci men Type: BLOOD SPECIMEN [facility] Address: [address] [place] [address] Performed By: #### 3 040-3, 33847-0, 38485-1, 63123-4, [id number] #### [facility] CLIA [id number] [address] [place] [address] [place] Anion gap [Moles/Vol] 14 mmol/L Normal 9-18 [facility] Comment on above: Order Comment: Speci men Type: BLOOD SPECIMEN [facility] Address: [address] [place] [address] Performed By: #### 3 040-3, 86726-2, 37639-7, 50362-1, [id number] #### [facility] CLIA [id number] [address] [place] [address] [place] AST [Catalytic activity/Vol] 21 U/L Normal 13-35 [facility] Comment on above: Order Comment: Speci men Type: BLOOD SPECIMEN [facility] Address: [address] [place] [address] Performed By: #### 3 040-3, 09728-3, 81664-4, 19703-3, [id number] #### [facility] CLIA [id number] [address] [place] [address] [place] Bilirubin [Mass/Vol] 0.4 mg/dL Normal 0.2-1.3 [facility] Comment on above: Order Comment: Speci men Type: BLOOD SPECIMEN [facility] Address: [address] [place] [address] Performed By: #### 3 040-3, 83230-3, 14105-9, 18969-1, [id number] #### [facility] CLIA [id number] [address] [place] [address] [place] Calcium [Mass/Vol] 9.4 mg/dL Normal 8.5-10.2 [facility] Comment on above: Order Comment: Speci men Type: BLOOD SPECIMEN [facility] Address: [address] [place] [address] Performed By: #### 3 040-3, 01944-2, 15388-4, 73060-6, [id number] #### [facility] CLIA [id number] [address] [place] [address] [place] Chloride [Moles/Vol] 102 mmol/L Normal 97-105 [facility] Comment on above: Order Comment: Speci men Type: BLOOD SPECIMEN [facility] Address: [address] [place] [address] Performed By: #### 3 040-3, 15222-9, 37293-8, 84152-9, [id number] #### [facility] CLIA [id number] [address] STATES [place] CO2 [Moles/Vol] 25 mmol/L Normal 22-30 [facility] Comment on above: Order Comment: Speci men Type: BLOOD SPECIMEN [facility] Address: [address] [place] [address] Performed By: #### 3 040-3, 63754-7, 78986-9, 96675-7, [id number] #### [facility] CLIA [id number] [address] [place] [address] [place] Creatinine [Mass/Vol] 0.81 mg/dL Normal 0.58-0.96 [facility] Comment on above: Order Comment: Speci men Type: BLOOD SPECIMEN [facility] Address: [address] [place] [address] Performed By: #### 3 040-3, 14862-9, 45111-4, 51466-4, [id number] #### [facility] CLIA [id number] [address] Creatinine and Glomerular filtration rate.predicted panel (S/P/Bld) 75 mL/min/1.73m??? Normal >=60 [facility] Comment on above: Order Comment: Speci men Type: BLOOD SPECIMEN [facility] Address: [address] [place] [address] Result Comment: Tanja mated Glomerular Filtration Rate [...] actual GFR. Performed By: #### 3 040-3, 86403-9, 49331-1, 80041-2, [id number] #### [facility] CLIA [id number] [address] [place] [address] [place] Glucose [Mass/Vol] 158 mg/dL High 74-99 [facility] Comment on above: Order Comment: Jessica shearer Type: BLOOD SPECIMEN [facility] Address: [address] [place] [address] Result Comment: The [place] Diabetes Association (ADA) provides guidance for cutoff [...] Standards of Medical Care in Diabetes 2016, [place] Diabetes Association. Diabetes Care. 2016.39(Suppl 1). Performed By: #### 3 040-3, 53644-7, 25696-6, 92762-9, [id number] #### [facility] CLIA [id number] [address] [place] [address] [place] Potassium [Moles/Vol] 3.7 mmol/L Normal 3.7-5.1 [facility] Comment on above: Order Comment: Jessica shearer Type: BLOOD SPECIMEN [facility] Address: [address] [place] [address] Performed By: #### 3 040-3, 04691-1, 45964-6, 30817-6, [id number] #### [facility] CLIA [id number] [address] [place] [address] [place] Protein [Mass/Vol] 7.9 g/dL Normal 6.3-8.0 [facility] Comment on above: Order Comment: Speci men Type: BLOOD SPECIMEN [facility] Address: [address] [place] [address] Performed By: #### 3 040-3, 88049-7, 84258-1, 36517-7, [id number] #### [facility] CLIA [id number] [address] [place] [address] [place] Sodium [Moles/Vol] 141 mmol/L Normal 136-144 [facility] Comment on above: Order Comment: Speci men Type: BLOOD SPECIMEN [facility] Address: [address] [place] [address] Performed By: #### 3 040-3, 91387-0, 10791-6, 65754-4, [id number] #### [facility] CLIA [id number] [address] [place] [address] [place] Urea nitrogen [Mass/Vol] 23 mg/dL High 7-21 [facility] Comment on above: Order Comment: Speci men Type: BLOOD SPECIMEN [facility] Address: [address] [place] [address] Performed By: #### 3 040-3, 95068-1, 96730-0, 51349-1, [id number] #### [facility] CLIA [id number] [address] [place] [address] [place] ECG COMPLETEon 01-03-2024 ECG COMPLETE Ventricular Rate : 5 1 BPM Atrial Rate : 51 BPM P-R Interval : 138 ms QRS Duration : 78 ms Q-T Interval : 432 ms QTC Calculation(Bazett) : 398 ms Calculated P [place] : 49 degrees Calculated R [place] : -9 degrees Calculated T [place] : 59 degrees SINUS BRADYCARDIA NONSPECIFIC ST ABNORMALITY ABNORMAL ECG no STEMI Confirmed by MD CAROLANN, ELIEZER.S ([id number]), online editor CHUY INFANTE ([id number]) on 01/04/2024 7:14:53 AM NAME : CYNDEE VITAL PID : [id number] : 1945 Gender : Female Race : ORD : [id number] Procedure Date : Jan 03 2024 04:14:58 Edit Date : Jan 04 2024 07:14:56 Diagnosis: SINUS BRADYCARDIA NONSPECIFIC ST ABNORMALITY ABNORMAL ECG no STEMI Confirmed by MD CAROLANN, ELIEZER.S ([id number]), online editor CHUY INFANTE ([id number]) on 01/04/2024 7:14:53 AM Test Reason : Chest Pain Location : 1 : ER 0203 Overread By : MD CAROLANN,ELIEZER.Ari Edited By : CHUY INFANTE Referred By : , Acquired by : [place] [id number], [facility] ED PROV NOTEon 01-03-2024 ED PROV NOTE HNO ID: [id number] Author: ELIEZER VUONG MD Service: Emergency Medicine [...] unspecified abdominal location COVID-19 test performed per [facility] [place] policy for suspected COVID community exposure. MDM [...] the following (more content not included)... Normal [facility] FLUABV+SARS-CoV-2+RSV Pnl Re sp ROSEMARY+probeon 01-03-2024 FLUABV+SARS-CoV-2+RSV Pnl Resp ROSEMARY+probe COVID 19 RESULT: Detected The method used is RT-PCR or an equivalent NAAT method. Reference Range(the expected result in uninfected individuals): Not detected INFLUENZA A PCR: Not detected INFLUENZA B PCR: Not detected RSV PCR: Not detected Abnormal [facility] Comment on above: Performed By: #### 9 5941-1 ####[facility] LABORATORYCLIA [id number] [place] [address] [place] HIGH SENSITIVITY TROPONIN T (INITIAL)on 01-03-2024 Troponin T.cardiac High sensitivity method [Mass/Vol] 6 ng/L Normal <12 [facility] Comment on above: Order Comment: Speci men Type: BLOOD SPECIMENOrdering Facility: [facility] Address: [address] [place] [address] [place] [address] Result Comment: When assessing risk for acute [...] 30 day MACE. Performed By: #### 3 405-3, 89292-9, 25903-7, 08120-5, [id number] ####[facility] LABORATORYCLIA [id number] [place] [address] [place] HIGH SENSITIVITY TROPONIN T (SECOND)on 01-03-2024 Troponin T.cardiac High sensitivity method [Mass/Vol] 7 ng/L Normal <12 [facility] Comment on above: Order Comment: Zoilai manfred Type: BLOOD SPECIMENOrdering Facility: [facility] Address: [address] [place] [address] Result Comment: When assessing risk for acute [...] MACE. Performed By: #### 1 988-5, 2777-1, [id number], ####[facility] LABORATORYCLIA [id number] [place] [address] [place] Lipase SerPl-cCncon 01-03-20 24 Lipase [Catalytic activity/Vol] 52 U/L Normal 16-61 [facility] Comment on above: Order Comment: Jessica shearer Type: BLOOD SPECIMENOrdering Facility: [facility] Address: [address] [place] [address] Performed By: #### 3 040-3, 94757-7, 41551-7, 99128-3, [id number] ####[facility] LABORATORYCLIA [id number] [place] [id number] [place] Magnesium SerPl-mCncon 01-03 Magnesium [Mass/Vol] 2.0 mg/dL Normal 1.7-2.3 [facility] Comment on above: Order Comment: Jessica shearer Type: BLOOD SPECIMENOrdering Facility: [facility] Address: [address] [place] [address] Performed By: #### 1 988-5, 2777-1, [id number], 10868-9 ####[facility] LABORATORYCLIA [id number] [address] STATES [facility] Magnesium [Mass/Vol] 2.2 mg/dL Normal 1.7-2.3 [facility] Comment on above: Order Comment: Jessica shearer Type: BLOOD SPECIMENOrdering Facility: [facility] Address: [address] [place] [address] Performed By: #### 3 040-3, 01181-2, 21403-4, 71226-7, [id number] ####[facility] LABORATORYCLIA [id number] [address] NT-proBNP [facility] Natriuretic peptide.B prohormone N-Terminal [Mass/Vol] 407 pg/mL Normal <450 [facility] Comment on above: Order Comment: Jessica shearer Type: BLOOD SPECIMENOrdering Facility: [facility] Address: [address] [place] [address] Performed By: #### 3 040-3, 68490-3, 33518-9, 09333-9, [id number] ####[facility]ORATORYCLIA [id number] [address] PT panel Coag (PPP)on 2023 INR Coag (PPP) [Relative time] 1.0 {INR} Normal 0.9-1.3 [facility] Comment on above: Order Comment: Jessica shearer Type: BLOOD SPECIMENOrdering Facility: [facility] Address: [address] [place] [address] Result Comment: Gege min K Antagonist (VKA) Therapeutic Range: INR 2 to 3 (Target INR of 2.5) Note: For patients treated with VKA drugs, such as warfarin, the [place] [employer]icians 2012 Guideline recommends [...] Chest 2012, 141:7S-47S Sunshine RA, et al. [facility] 2017, 70: 252-289 Performed By: #### 3 4528-0, 55967-5 ####[facility]ORATORYCLIA [id number] [address] STATES OF [facility] PT Coag (PPP) [Time] 10.8 s Normal 9.7-13.0 [facility] Comment on above: Order Comment: Speci men Type: BLOOD SPECIMENOrdering Facility: [facility] Address: [address] [place] [address] Performed By: #### 3 4528-0, 67829-1 ####[facility]ORATORYCLIA [id number] [address] Phosphate SerPl-mCncon 01-03 Phosphate [Mass/Vol] 2.9 mg/dL Normal 2.7-4.8 [facility] Comment on above: Order Comment: Speci men Type: BLOOD SPECIMENOrdering Facility: [facility] Address: [address] [place] [address] Performed By: #### 1 988-5, 2777-1, [id number], 05532-4 ####[facility]ATORYCLIA [id number] [address] Urinalysis complete panel (U )on 01-03-2024 Bilirubin Ql (U) Negative Normal Negative [facility] Comment on above: Order Comment: Speci men Type: URINE SPECIMENOrdering Facility: [facility] Address: [address] [place] [address] Performed By: #### 2 4356-8 ####[facility]ORATORYCLIA [id number] [address] [place] Clarity (Unsp spec) Clear Normal Clear [facility] Comment on above: Order Comment: Speci men Type: URINE SPECIMENOrdering Facility: [facility] Address: [address] [place] [address] Performed By: #### 2 4356-8 ####[facility]ATORYCLIA [id number] [place] [address] [place] Color (U) Yellow Normal Yellow [facility] Comment on above: Order Comment: Speci men Type: URINE SPECIMENOrdering Facility: [facility] Address: [address] [place] [address] Performed By: #### 2 4356-8 ####[facility]ATORYCLIA [id number] [place] [address] [place] Glucose Test strip (U) [Mass/Vol] Trace Abnormal Negative [facility] Comment on above: Order Comment: Speci men Type: URINE SPECIMENOrdering Facility: [facility] Address: [address] [place] [address] Performed By: #### 2 4356-8 ####[facility]ATORYCLIA [id number] [place] [address] [place] Hemoglobin Ql (U) Trace Abnormal Negative [facility] Comment on above: Order Comment: Speci men Type: URINE SPECIMENOrdering Facility: [facility] Address: [address] [place] [address] Performed By: #### 2 4356-8 ####[facility]ATORYCLIA [id number] [place] [address] [place] Ketones Ql (U) Negative Normal Negative [facility] Comment on above: Order Comment: Speci men Type: URINE SPECIMENOrdering Facility: [facility] Address: [address] [place] [address] Performed By: #### 2 4356-8 ####[facility]ATORYCLIA [id number] [place] [address] [place] Leukocyte esterase Test strip Ql (U) Negative Normal Negative [facility] Comment on above: Order Comment: Speci men Type: URINE SPECIMENOrdering Facility: [facility] Address: [address] [place] [address] Performed By: #### 2 4356-8 ####[facility]ATORYCLIA [id number] [place] [address] [place] Nitrite Ql (U) Negative Normal Negative [facility] Comment on above: Order Comment: Speci men Type: URINE SPECIMENOrdering Facility: [facility] Address: [address] [place] [address] Performed By: #### 2 4356-8 ####[facility]ORYCLIA [id number] [address] pH (U) 7.0 [pH] Normal 5.0-8.0 [facility] Comment on above: Order Comment: Speci men Type: URINE SPECIMENOrdering Facility: [facility] Address: [address] [place] [address] Performed By: #### 2 4356-8 ####[facility]ATORYCLIA [id number] [address] STATES [facility] Protein (U) [Mass/Vol] Negative Normal Negative [facility] Comment on above: Order Comment: Speci men Type: URINE SPECIMENOrdering Facility: [facility] Address: [address] [place] [address] Performed By: #### 2 4356-8 ####[facility]ORYCLIA [id number] [address] STATES [facility] RBC LM.HPF (Urine sed) [#/Area] 0-3 /HPF Normal 0-3 /HPF [facility] Comment on above: Order Comment: Speci men Type: URINE SPECIMENOrdering Facility: [facility] Address: [address] [place] [address] Performed By: #### 2 4356-8 ####[facility]ATORYCLIA [id number] [address] [place] Specific gravity (U) [Rel density] 1.010 Normal 1.005-1.030 [facility] Comment on above: Order Comment: Speci men Type: URINE SPECIMENOrdering Facility: [facility] Address: [address] [place] [address] Performed By: #### 2 4356-8 ####[facility]ORYCLIA [id number] [address] Urobilinogen Ql (U) 0.2 EU/dL Normal 0.2-1.0 EU/dL [facility] Comment on above: Order Comment: Speci men Type: URINE SPECIMENOrdering Facility: [facility] Address: [address] [place] [address] Performed By: #### 2 4356-8 ####[facility]ATORYCLIA [id number] [place] [address] [place] WBC LM.HPF (Urine sed) [#/Area] 0-5 /HPF Normal 0-5 /HPF [facility] Comment on above: Order Comment: Speci men Type: URINE SPECIMENOrdering Facility: [facility] Address: [address] [place] [address] Performed By: #### 2 4356-8 ####[facility]ATORYCLIA [id number] [place] [address] [place] aPTT PPPon 01-03-2024 aPTT Coag (PPP) [Time] 21.9 s Low 23.0-32.4 [facility] Comment on above: Order Comment: Speci men Type: BLOOD SPECIMENOrdering Facility: [facility] Address: [address] [place] [address] Performed By: #### 3 4528-0, 88832-2 ####[facility]ORATORYCLIA [id number] [place] [address] [place] NM PET/CT BRAIN PLAQUE IMAGI NGon 09-24-2023 [facility] Patient Instructionson 04-13 Inside Sales Recruiter Authentication Interface Message Text Sunscreen Recommendations: Recommend [...] Pure and Simple Zinc oxide Normal [facility]United Mobile [facility] System Progress Noteson 04-13-2023 Inside [employer] Recruiter Authentication Interface Message Text Vitals not obtained per provider's instructions. Patient was identified by name and date of . Charleneati Crichlreji Why are you seeing the gum mixer (doctor) today? mole What specific location on [...] Use? yes Tobacco Use? no Normal The Cle[employer] Goats Mediaation Interface Message Text ------- HISTORY OF PRESENT [...] by me, Celina Levy MD. Normal The [employer] [facility] [place] PET/CT BRAIN PLAQUE IMAGI NGon 02-19-2023 [facility] Absolute lymphocyte countOrd ered By: Emi Cook on 01-26-2023 Lymphocytes Auto (Unsp spec) [#/Vol] 1.61 10*3/uL 0.83-4.51 [facility] Basophil percentageOrdered B y: Emi Cook on 01-26-2023 Basophils/100 WBC (Bld) 0.6 % 0-1 [facility] Bilirubin [Mass/Vol] 0.50 mg/dL 0.20-1.00 [facility] Comment on above: For patients on eltr ombopag therapy, use of Dimension [place] TBIL is not recommended. Chloride [Moles/Vol] 112 mmol/L 98-107 [facility] Cholesterol [Mass/Vol] 144 mg/dL <200 [facility] Comment on above: <200 mg/dL Desirable 200-240 mg/dL Borderline >240 mg/dL High Risk Eosinophils/100 WBC (Bld) 3.0 % 0-5 [facility] Glucose [Mass/Vol] 107 mg/dL 74-106 [facility] Comment on above: Fasting Glucose resu lt from 100 to 125 mg/dL suggests IMPAIRED HOMEOSTASIS per A.D.A. criteria. Neutrophils (Bld) [#/Vol] 4.5 10*3/uL 2.0-7.7 [facility] Neutrophils/100 WBC (Bld) 63.8 % 47-70 [facility] Potassium [Moles/Vol] 3.6 mmol/L 3.5-5.1 [facility] Protein [Mass/Vol] 7.3 g/dL 6.4-8.2 [facility] Sodium [Moles/Vol] 145 mmol/L 136-145 [facility] Triglyceride [Mass/Vol] 221 mg/dL <199 [facility] Comment on above: The drugs N-Acetylcy steine and Metamizole may falsely depress this assay.Serum Triglycerides Reference Interval Normal <150 mg/dL Borderline high 150 - 199 mg/dL High 200 - 499 mg/dL Very High > or = 500 mg/dL WBC (Bld) [#/Vol] 7.0 10*3/uL 4.4-11.0 [facility] Blood erythrocytes count (nu mber/volume)Ordered By: Emi Cook on 01-26-2023 RBC (Bld) [#/Vol] 4.36 10*6/uL 4.2-5.4 [facility] Blood hemoglobin measurement (mass/volume)Ordered By: Emi Cook on 01-26-2023 Hemoglobin (Bld) [Mass/Vol] 13.4 g/dL 12.0-15.0 [facility] Blood lymphocytes/100 leukoc ytesOrdered By: Emi Cook on 01-26-2023 Lymphocytes/100 WBC (Bld) 23.0 % 19-41 [facility] Blood monocytes/100 leukocyt esOrdered By: Emi Cook on 01-26-2023 Monocytes/100 WBC (Bld) 9.3 % 0-10 [facility] Blood platelet mean volumeOr dered By: Emi Cook on 01-26-2023 Platelet mean volume (Bld) [Entitic vol] 10.8 fL 6.2-12.0 [facility] Determination of erythrocyte mean corpuscular volume (MCV)Ordered By: Emi Cook on 01-26-2023 MCV (RBC) [Entitic vol] 93.6 fL 81-99 [facility] Hematocrit Auto (Bld) [Volum e fraction]Ordered By: Emi Cook on 01-26-2023 Hematocrit (Bld) [Volume fraction] 40.8 % 37-47 [facility] Laboratory - Chemistry and C hemistry - challengeOrdered By: Emi Cook on 01-26-2023 ALP [Catalytic activity/Vol] 102 U/L 45-117 [facility] ALT [Catalytic activity/Vol] 23 U/L 13-56 [facility] CO2 [Moles/Vol] 27.0 mmol/L 21.0-32.0 [facility] Globulin (S) [Mass/Vol] 3.6 g/dL 2.2-4.2 [facility] Urea nitrogen/Creatinine [Mass ratio] 22.0 mg/mg 10-20 [facility] Laboratory - Hematology and Cell countsOrdered By: Emi Cook on 01-26-2023 Erythrocyte distribution width (RBC) [Entitic vol] 46.9 fL 35.1-43.9 [facility] Erythrocyte distribution width (RBC) [Ratio] 13.7 % 11.6-14.6 [facility] Immature granulocytes/100 WBC (Bld) 0.300 % 0.0-0.9 [facility] Comment on above: IG% - Immature Granu locytes (promyelocytes, myelocytes and metamyelocytes) > 1% indicates that a LEFT SHIFT is Present. MCH (RBC) [Entitic mass] 30.7 pg 27.0-32.0 [facility] Nucleated RBC/100 WBC (Bld) [Ratio] 0 % 0-5 [facility] MCHC Auto (RBC) [Mass/Vol]Or dered By: Emi Cook on 01-26-2023 MCHC (RBC) [Mass/Vol] 32.8 g/dL 32-36 [facility] No Panel InformationOrdered By: Emi Cook on 01-26-2023 Vitamin D 25-Hydroxy 12.5 ng/mL [facility] Comment on above: Vitamin D 25(OH) Sta tus Range Deficiency <20 ng/mL (50nmol/L) Insufficiency 20 - 30 ng/mL (50 - 75 nmol/L) Sufficiency 30 - 100 ng/mL (75 - 250 nmol/L) Toxicity >100 ng/mL (>250 nmol/L) Estimated GFR (MDRD) Amer 77 mL/min >60 [facility] Comment on above: GFR Calc Estimated GFR (MDRD) Non-Af Amer 64 mL/min >60 [facility] Comment on above: Non- GFR Calc Platelets bldOrdered By: Ventura Cook on 01-26-2023 Platelets (Bld) [#/Vol] 238 10*3/uL 150-450 [facility] Serum or plasma albumin yahaira urement (mass/volume)Ordered By: Emi Cook on 01-26-2023 Albumin [Mass/Vol] 3.7 g/dL 3.2-5.0 [facility] Serum or plasma albumin/glob ulin mass ratioOrdered By: Emi Cook on 01-26-2023 Albumin/Globulin [Mass ratio] 1.0 {ratio} 0.9-2.4 [facility] Serum or plasma calcium yahaira urement (mass/volume)Ordered By: Emi Cook on 01-26-2023 Calcium [Mass/Vol] 9.3 mg/dL 8.5-10.1 [facility] Serum or plasma cholesterol in HDL measurement (mass/volume)Ordered By: Emi Cook on 01-26-2023 Cholesterol in HDL [Mass/Vol] 68 mg/dL >40 [facility] Comment on above: The drugs N-Acetylcy steine and Metamizole may falsely depress this assay. Reference Range HDL <40 mg/dL Low HDL Cholesterol HDL >or= 60 mg/dL High HDL Cholesterol Serum or plasma cholesterol in VLDL measurement (mass/volume)Ordered By: Emi Cook on 01-26-2023 Cholesterol in VLDL [Mass/Vol] 44 mg/dL 5-40 [facility] Serum or plasma creatinine m easurement (mass/volume)Ordered By: Emi Cook on 01-26-2023 Creatinine [Mass/Vol] 0.91 mg/dL 0.55-1.02 [facility] Comment on above: The validity of the calculated GFR & GFRAA in patients over 70 years has not been determined. Clinical correlation is essential. Serum or plasma low density lipoprotein (LDL) cholesterol measurement (mass/volume)Ordered By: Emi Cook on 01-26-2023 Cholesterol in LDL [Mass/Vol] 32 mg/dL 0-130 [facility] Serum or plasma urea nitroge n measurement (mass/volume)Ordered By: Emi Cook on 01-26-2023 Urea nitrogen [Mass/Vol] 20 mg/dL 7-18 [facility] Thin prep Papanicolaou smear with manual screeningOrdered By: Emi Cook on 01-26-2023 Thin prep Papanicolaou smear with manual screening 17 U/L 15-37 [facility] Thin prep Papanicolaou smear with manual screening 6 5-15 [facility] MRI Brain w/o Contraston MRI Brain w/o Contrast Patient Name: CYNDEE VITAL [facility] ACCESSION EXAM DATE/TIME PROCEDURE ORDERING PROVIDER [id number] 11/11/2021 12:17 EST MRI Brain w/o Contrast MD JONATHAN, GUNJAN CPT code 14861 Reason For Exam (MRI Brain w/o Contrast) [...] Transcribed Date and Time: 11/11/2021 1:28 Normal [facility] Thyroid Stim. Hormoneon 12-0 Thyroid Stim. Hormone 2.135 u[IU]/mL Normal 0.465-4.68 0 [facility] Comment on above: Performed By: #### T SH5, B12 #### [facility] [address] [place] [address] Vitamin B12on 10-14-2021 Cobalamin (Vitamin B12) [Mass/Vol] 256 pg/mL Normal 239-931 [facility] Comment on above: Performed By: #### T SH5, B12 #### [facility] [address] [place] [address] [place] MAMMOGRAM SCREENING BILAT ERAL W/TOMOon 08-19-2021 [place] MAMMOGRAM SCREENING BILATERAL W/DOMINIC ORIGINAL FROM: [place] [address] [address] PROCEDURE FOR: CYNDEE VITAL [address] [place] [address] Home: PID#: [id number] Exam#: [id number] : 1945 Age: 76 TO: EMI COOK APRN SALES ENABLEMENT CONSULTANT [address] [phone] EXAMINATION: SCREENING DIGITAL BILATERAL MAMMOGRAM WITH TOMOSYNTHESIS, [...] 08/20/2021 9:23:16 AM Ordering Provider: EMI COOK Quality Control Manager: HAM RODRIGUEZ RT (R) (M) (CT) letter sent: Normal BI-RADS 1 and 2 Mammogram BI-RADS: 1 Negative Normal [facility] ([place]) Vital Signs Date Time Vital Sign Value Performing Clinician Renettai negro 02-23-2025 08:57-0400 Body mass index (BMI) [Ratio] 24.46 kg/m2 Gunjan Castillo MD Work Phone: [facility] [employer] 02-23-2025 08:57-0400 Body weight 58.24 kg Gunjan Castillo MD Work Phone: [facility] [employer] 02-23-2025 08:57-0400 Diastolic blood pressure 76 mm[Hg] Gunjan Castillo MD Work Phone: [facility] [employer] 02-23-2025 08:57-0400 Heart rate 78 /min Gunjan Castillo MD Work Phone: [facility] [employer] 02-23-2025 08:57-0400 Systolic blood pressure 121 mm[Hg] Gunjan Castillo MD Work Phone: [facility] [employer] 08-25-2024 08:44-0400 Body mass index (BMI) [Ratio] 26.18 kg/m2 Gunjan Castillo MD Work Phone: [facility] 08-25-2024 08:44-0400 Body weight 62.32 kg Gunjan Castillo MD Work Phone: [facility] 08-25-2024 08:44-0400 Diastolic blood pressure 74 mm[Hg] Gunjan Castillo MD Work Phone: [facility] 08-25-2024 08:44-0400 Heart rate 72 /min Gunjan Castillo MD Work Phone: [facility] 08-25-2024 08:44-0400 Systolic blood pressure 119 mm[Hg] Gunjan Castillo MD Work Phone: [facility] 02-25-2024 08:53-0400 Body mass index (BMI) [Ratio] 24.38 kg/m2 Gunjan Castillo MD Work Phone: [facility] 02-25-2024 08:53-0400 Body weight 58.06 kg Gunjan Castillo MD Work Phone: [facility] 02-25-2024 08:53-0400 Diastolic blood pressure 60 mm[Hg] Gunjan Castillo MD Work Phone: [facility] 02-25-2024 08:53-0400 Heart rate 69 /min Gunjan Castillo MD Work Phone: [facility] 02-25-2024 08:53-0400 Systolic blood pressure 94 mm[Hg] Gunjan Castillo MD Work Phone: [facility] 01-26-2024 17:41-0400 Body height 154.94 cm [facility] 01-26-2024 17:41-0400 Body mass index (BMI) [Ratio] 24 kg/m2 [facility] 01-26-2024 17:41-0400 Body temperature 96.3 [degF] [facility] 01-26-2024 17:41-0400 Body weight 57.6 kg [facility] 01-26-2024 17:41-0400 Diastolic blood pressure 80 mm[Hg] [facility] 01-26-2024 17:41-0400 Heart rate 84 /min [facility] 01-26-2024 17:41-0400 Respiratory rate 18 /min [facility] 01-26-2024 17:41-0400 SaO2% (BldA) [Mass fraction] 97 % [facility] 01-26-2024 17:41-0400 Systolic blood pressure 120 mm[Hg] [facility] 12-07-2023 17:43-0500 Body mass index (BMI) [Ratio] 25.1 kg/m2 [facility] 12-07-2023 17:43-0500 Body temperature 96.8 [degF] [facility] 12-07-2023 17:43-0500 Body weight 60.32 kg [facility] 12-07-2023 17:43-0500 Diastolic blood pressure 60 mm[Hg] [facility] 12-07-2023 17:43-0500 Heart rate 64 /min [facility] 12-07-2023 17:43-0500 Respiratory rate 18 /min [facility] 12-07-2023 17:43-0500 SaO2% (BldA) [Mass fraction] 95 % [facility] 12-07-2023 17:43-0500 Systolic blood pressure 98 mm[Hg] [facility] 10-22-2023 14:58-0500 Body mass index (BMI) [Ratio] 24.42 kg/m2 Gunjan Castillo MD Work Phone: [facility] 10-22-2023 14:58-0500 Body weight 58.15 kg Gunjan Castillo MD Work Phone: [facility] 10-22-2023 14:58-0500 Diastolic blood pressure 69 mm[Hg] Gunjan Castillo MD Work Phone: [facility] 10-22-2023 14:58-0500 Heart rate 56 /min Gunjan Castillo MD Work Phone: [facility] 10-22-2023 14:58-0500 Systolic blood pressure 112 mm[Hg] Gunjan Castillo MD Work Phone: [facility] 02-26-2023 15:46-0400 Body mass index (BMI) [Ratio] 21.87 kg/m2 Gunjan Castillo MD Work Phone: [facility] 02-26-2023 15:46-0400 Body temperature 96.6 [degF] Gunjan Castillo MD Work Phone: [facility] 02-26-2023 15:46-0400 Body weight 52.07 kg Gunjan Castillo MD Work Phone: [facility] 02-26-2023 15:46-0400 Diastolic blood pressure 72 mm[Hg] Gunjan Castillo MD Work Phone: [facility] 02-26-2023 15:46-0400 Heart rate 58 /min Gunjan Castillo MD Work Phone: [facility] 02-26-2023 15:46-0400 Systolic blood pressure 112 mm[Hg] Gunjan Castillo MD Work Phone: [facility] 01-26-2023 16:19-0400 Body height 154.94 cm [facility] 01-26-2023 16:19-0400 Body mass index (BMI) [Ratio] 22.8 kg/m2 [facility] 01-26-2023 16:19-0400 Body temperature 97.2 [degF] [facility] 01-26-2023 16:19-0400 Body weight 54.88 kg [facility] 01-26-2023 16:19-0400 Diastolic blood pressure 80 mm[Hg] [facility] 01-26-2023 16:19-0400 Heart rate 87 /min [facility] 01-26-2023 16:19-0400 Respiratory rate 18 /min [facility] 01-26-2023 16:19-0400 SaO2% (BldA) [Mass fraction] 97 % [facility] 01-26-2023 16:19-0400 Systolic blood pressure 120 mm[Hg] [facility] 02-28-2022 15:28-0400 Body height 154.9 cm Marcus Sorensen DO Work Phone: [facility] 02-28-2022 15:28-0400 Body weight 49.9 kg Marcus Sorensen DO Work Phone: [facility] 02-28-2022 15:28-0400 Diastolic blood pressure 58 mm[Hg] Marcus Sorensen DO Work Phone: [facility] 02-28-2022 15:28-0400 Heart rate 58 /min Marcus Sorensen DO Work Phone: [facility] 02-28-2022 15:28-0400 SaO2% (BldA) [Mass fraction] 98 % Marcus Sorensen DO Work Phone: [facility] 02-28-2022 15:28-0400 Systolic blood pressure 112 mm[Hg] Marcus Sorensen DO Work Phone: [facility] Encounters Encounter Date Encounter Type Care Provider Facility Start: 06-01-2025 ambulatory Emi Cook TELEPHONE SURVEYOR Faci lity:[facility] Start: 05-30-2025 ambulatory Josué Last OLS Facil ity:[facility] Start: 03-31-2025 Encounter for genera l adult medical examination without abnormal findings Josué BERG [facility] Start: 03-14-2025 ambulatory EMI COOK Facil ity:[facility] Start: 03-14-2025 End: 03-14-2025 Subsequent hospital visit by physician Fredi Liu [facility] Work Phone: Radiology Comment on above: Arrived Start: 03-10-2025 End: 03-10-2025 ambulatory Josué BERG Facility:[facility] Start: 02-23-2025 End: 03-10-2025 Telephone encounter Gunjan Castillo MD Work Phone: [facility] Start: 02-23-2025 End: 02-23-2025 Subsequent hospital visit by physician Gunjan Castillo MD Work Phone: [facility] Stress Comment on above: Irregular heart rate Start: 02-23-2025 End: 02-23-2025 ambulatory EMI COOK 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 Start: 02-14-2025 End: 02-14-2025 ambulatory EMI COOK Facility:[facility] Start: 02-14-2025 End: 02-14-2025 Subsequent hospital visit by physician [facility] Work Phone: Radiology Start: 01-24-2025 End: 01-24-2025 Refill Dorothy Kumar MA [facility] Start: 11-19-2024 End: 11-19-2024 Letter encounter Celina Levy MD Work Phone: [facility] Start: 09-29-2024 End: 09-29-2024 ambulatory AMILCAR BRADFORD Facility:[facility] Start: 09-29-2024 End: 09-29-2024 Patient encounter procedure Emi Cook PROBATION AND PATROL AGENT.SALES ENABLEMENT CONSULTANT Work Phone: [facility] Start: 09-29-2024 End: 09-29-2024 Subsequent hospital visit by physician [facility] Comment on above: Examination of parti cipant or control in clinical research [Z00.6] Start: 09-29-2024 End: 09-29-2024 ambulatory AMILCAR BRADFORD Facility:[facility] Start: 09-29-2024 Patient encounter procedure AMILCAR BRADFORD [facility] Start: 09-21-2024 End: 09-21-2024 ambulatory Emi Cook TELEPHONE SURVEYOR Facility:[facility] Start: 09-19-2024 End: 09-19-2024 Telephone encounter Amilcar Bradford MD, PhD Work Phone: Molecular Imaging Comment on above: Returning Patient's Call Start: 09-14-2024 End: 09-15-2024 Orders Only Amilcar Bradford MD, PhD Work Phone: Molecular Imaging Comment on above: Examination of parti cipant or control in clinical research (Primary Dx) Start: 09-14-2024 End: 09-15-2024 Patient encounter procedure Amilcar Bradford MD, PhD Work Phone: [facility] Start: 08-30-2024 End: 08-30-2024 Emergency department patient visit EMI COOK Facility:[facility] Start: 08-25-2024 End: 08-25-2024 Office outpatient visit 25 minutes Gunjan Castillo MD Work Phone: [facility] [employer] Comment on above: Alzheimer's dementia with behavioral disturbance (HCC) (Primary Dx) Start: 08-25-2024 End: 08-25-2024 ambulatory GUNJAN [employer] [facility] Start: 08-14-2024 End: 08-14-2024 Letter encounter Celina Levy MD Work Phone: [facility] Start: 07-22-2024 End: 07-22-2024 Refill Gunjan Castillo MD Work Phone: [facility] [employer] Comment on above: Depression, unspecif ied depression type Start: 05-10-2024 End: 05-10-2024 ambulatory EMI COOK Facility:[facility] Start: 04-26-2024 End: 04-26-2024 ambulatory AMILCAR BRADFORD Facility:[facility] Start: 04-26-2024 End: 04-26-2024 ambulatory AMILCAR BRADFORD Facility:[facility] Start: 04-26-2024 End: 04-26-2024 Patient encounter procedure Emi Cook PROBATION AND PATROL AGENT.SALES ENABLEMENT CONSULTANT Work Phone: [facility] Start: 04-26-2024 End: 04-26-2024 Subsequent hospital visit [...] St arun Bradford MD, PhD Work Phone: [facility] Start: 04-14-2024 Orders Only Amilcar naqvi MD, PhD Work Phone: Neurology Comment on above: Examination of parti cipant or control in clinical research (Primary Dx) Start: 04-14-[address] arun Bradford MD, PhD Work Phone: [facility] Start: 04-13-2024 Orders Only Amilcar naqvi MD, PhD Work Phone: Radiology Comment on above: Examination of parti cipant in clinical trial (Primary Dx) Start: 04-13-[address] arun Bradford MD, PhD Work Phone: [facility] Start: 02-25-2024 End: 02-25-2024 Office outpatient visit 40 minutes Gunjan Castillo MD Work Phone: [facility] Geriatrics Comment on above: Alzheimer's dementia with behavioral disturbance (HCC) (Primary Dx) Start: 02-01-2024 End: 02-01-2024 Patient encounter procedure [facility] Work Phone: [facility] Start: 02-01-2024 End: 02-01-2024 Subsequent hospital visit by physician [facility] Work Phone: Radiology Comment on above: Examination for norm al comparison or control in clinical research [Z00.6] Start: 01-26-2024 End: 01-26-2024 [facility] Work Phone: Start: 01-26-2024 End: 01-26-2024 Patient encounter procedure Wolfgang Sagastume Neurology Comment on above: Examination for norm al comparison or control in clinical research (Primary Dx) Start: 01-25-2024 ambulatory Roxann Frey C linical Communication Start: 01-25-2024 Patient encounter procedure Roxann Frey Clinical Communication Start: 01-25-2024 Telephone encounter Gunjan ferraro MD Work Phone: [facility] Geriatrics Start: 01-13-2024 End: 01-13-2024 Emergency department patient visit SHAKILA WARE Facility:[facility] Start: 01-03-2024 End: 01-03-2024 Evaluation and management of inpatient EMI COOK Facility:[facility] Start: 12-28-2023 Refill Monica Ahn [facility] [employer] Start: 10-22-2023 End: 10-22-2023 Office outpatient visit 40 minutes Gunjan Castillo MD Work Phone: [facility] Geriatrics Comment on above: Alzheimer's [...] 07-03-2023 Refill Gunjan goetz MD Work Phone: [facility] Geriatrics Comment on above: Depression, unspecif ied depression type Start: 04-13-2023 End: 04-13-2023 ambulatory UNKNOWN PROVIDER Facility:[facility] Start: 04-13-2023 End: 04-13-2023 Office outpatient new 20 minutes Celina Levy MD Work Phone: [facility] Dermatology Comment on above: Seborrheic keratoses (Primary Dx); Ephelides; Lentigines; Multiple nevi Start: 02-26-2023 End: 02-26-2023 Office outpatient visit 40 minutes Gunjan Castillo MD Work Phone: [facility] Geriatrics Comment on above: Alzheimer's dementia without behavioral disturbance (HCC) (Primary Dx); Depression, unspecified depression type Start: 02-19-2023 Telephone encounter Amilcar Bradford MD, PhD Work Phone: Molecular Imaging Comment on above: NM RESEARCH Cancelled Appointmen t (Cancel and reschedule ) Start: 02-19-2023 End: 02-19-2023 Patient encounter procedure Emi Cook APRN.SALES ENABLEMENT CONSULTANT Work Phone: Molecular Imaging Start: 02-19-2023 End: 02-19-2023 Subsequent hospital visit by physician [facility] Comment on above: Examination for norm al comparison or control in clinical research [Z00.6] Start: 01-26-2023 End: 01-26-2023 ambulatory [facility] Work Phone: Start: 01-26-2023 End: 01-26-2023 Patient encounter procedure [facility], Specimen Start: 01-21-2023 Patient encounter procedure Wolfgang gaston Neurology Comment on above: Examination for norm al comparison or control in clinical research (Primary Dx) Start: 08-22-2022 ambulatory Yoselyn Frey [facility] Start: 08-22-2022 End: 08-22-2022 Subsequent hospital visit by physician Yoselyn Paez PROBATION AND PATROL AGENT - SALES ENABLEMENT CONSULTANT Work Phone: [facility] Start: 02-28-2022 End: 02-28-2022 Patient encounter procedure Marcus Sorensen DO Work Phone: Cardiology Comment on above: PSVT (paroxysmal sup raventricular tachycardia) (HCC) (Primary Dx); PVC (premature ventricular contraction); Pure hypercholesterolemia Start: 02-17-2022 ambulatory UNKNOWN PROVIDER [facility] Start: 11-18-2021 ambulatory UNKNOWN PROVIDER [facility] Start: 10-28-2021 ambulatory UNKNOWN PROVIDER [facility] Start: 10-14-2021 ambulatory UNKNOWN PROVIDER [facility] Start: 08-19-2021 End: 08-19-2021 Patient encounter procedure EMI COOK PROBATION AND PATROL AGENT-SALES ENABLEMENT CONSULTANT [facility] Procedures Date Procedure Procedure Detail Performing Clinician [...] Sorensen DO Work Phone: H/O: hysterectomy EMI MASON RDSON PROBATION AND PATROL AGENT-SALES ENABLEMENT CONSULTANT Plan of Treatment Date Care Activity Detail Author Start: 08-30-2027 Diabetes Screening Diabetes Screenin [facility] Start: 01-12-2027 Diabetes Screening Diabetes Screenin [facility] Start: 08-31-2025 End: 08-31-2025 Patient encounter procedure 08/31/2025 9:00 AM EDT [facility] [address] [place] [address] Gunjan Castillo MD [address] [place] [id number] [facility] Start: 08-25-2025 [facility] Start: 07-10-2025 Influenza vaccination Influenz a Vaccine (Season Ended) [facility] Start: 04-11-2025 End: 04-11-2025 Patient encounter procedure 04/11/2025 9:30 AM EDT Appointment Radiology [address] [address] [address] [place] [id number] professional [id number] MR Radiology Comment on above: [id number]/ [address] [id number] professional [id number] MR Start: 02-23-2025 Depression Monitoring Depression Merary espinoza [facility] Start: 02-23-2025 End: 02-23-2025 Patient encounter procedure 02/23/2025 9:00 AM EDT [facility] [address] [place] [phone] Gunjan Castillo MD [address] [address] [facility] Start: 11-09-2024 Advance Directive Discussion Advance Directive Discussion [facility] Start: 11-09-2024 Medicare Advantage Annual Wellness Visit Medicare Advantage Annual Wellness Visit [facility] Start: 10-07-2024 LIPID SCREEN LIPID SCREEN [facility] Start: 09-29-2024 End: 09-29-2024 Patient encounter procedure [facility] Comment on above: NM PET/CT BRAIN PLAQ [facility] Start: 09-29-2024 End: 09-29-2024 Patient encounter procedure 09/29/2024 12:30 PM EST Office Visit Radiology [address] [place] [address] Direct pt.to MRI U15 desk Radiology Comment on above: Direct pt.to MRI U15 desk Start: 08-26-2024 Depression Monitoring Depression Merary espinoza [facility] Start: 08-26-2024 Depresssion Monitoring Depresssion M onitoring [facility] Start: 08-25-2024 End: 08-25-2024 Patient encounter procedure [facility] Start: 07-10-2024 COVID-19 Vaccine () COVID-19 Vaccine () [facility] Start: 07-10-2024 COVID-19 Vaccine () COVID-19 Vaccine () [facility] Start: 07-10-2024 Covid-19 Vaccine (4 - 2024-25 season) Covid-19 Vaccine ( season) [facility] Start: 07-10-2024 Influenza vaccination S [facility] Start: 04-26-2024 End: 04-26-2024 Patient encounter procedure Molecular Imaging Comment on above: NM PET/CT BRAIN PLAQ [facility] Start: 04-22-2024 Depresssion Monitoring Depresssion M [facility] Start: 04-19-2024 End: 04-19-2024 Patient encounter procedure 04/19/2024 9:30 AM EDT Office Visit Radiology [address] [place] [address] Research [id number] Subject [id number] Day 162 MRI Radiology Comment on above: Research [id number] Subject [id number] Day 162 MRI Start: 02-25-2024 End: 02-25-2024 Patient encounter procedure 02/25/2024 8:45 AM EDT Office Visit [facility] Ger[facility]s [address] [place] [phone] Gunjan Castillo MD [address] [address] [facility] Start: 01-26-2024 5,10-methylenetetrah ydr ofolate reductase gene analysis [facility] Start: 11-09-2023 Advance Directive Discussion Advance Directive Discussion [facility] Start: 11-09-2023 Behavioral Health Screening Behavioral Health Screening [facility] Start: 11-09-2023 Depression Assessment Depression Ass essment [facility] Start: 11-09-2023 Medicare Advantage Annual Wellness Visit Medicare Advantage Annual Wellness Visit [facility] Start: 10-22-2023 End: 10-22-2024 Cobalamin (Vitamin B12) [Mass/volume] in Serum or Plasma Vitamin B12 Lab Routine Vitamin B12 deficiency Expected: 10/22/2023 (Approximate), Expires: 10/22/2024 [employer] Work Phone: Comment on above: Expected: 10/22/2023 (Approximate), Expires: 10/22/2024 Start: 08-28-2023 Depresssion Monitoring Depresssion [facility] [employer] Start: 07-10-2023 COVID-19 Vaccine ( season) COVID-19 Vaccine ( season) [facility] Start: 07-10-2023 Covid-19 Vaccine ( season) Covid-19 Vaccine ( season) [facility] Start: 07-10-2023 Influenza vaccination C [facility] Start: 02-17-2023 Depression Monitoring Depression Mon itoring [facility] Start: 11-09-2022 ADVANCE DIRECTIVE DISCUSSION ADVANCE DIRECTIVE DISCUSSION [facility] Start: 11-09-2022 DEPRESSION ASSESSMENT DEPRESSION ASS ESSMENT [facility] Start: 10-07-2022 DIABETES SCREEN DIABETES SCREEN [facility] Start: 10-07-2022 Diabetes Screening Diabetes Screenin g [facility] Start: 07-10-2022 Influenza vaccination C [facility] Start: 06-09-2022 Influenza vaccination Flu vaccine (# 1) [facility] Start: 11-30-2021 COVID-19 VACCINE (4 - Booster for Pfizer series) COVID-19 VACCINE (4 - Booster for Pfizer series) [facility] Start: 11-30-2021 Covid-19 Vaccine (4 - Pfizer series) Covid-19 Vaccine (4 - Pfizer series) [facility] Start: 11-09-2021 ADVANCE DIRECTIVE DISCUSSION ADVANCE DIRECTIVE DISCUSSION [facility] Start: 10-14-2021 Annual Wellness Visi t (AWV) Annual Wellness Visit (AWV) [facility] Start: 2021 RSV Immunization for Adults (1 - 1-dose 75+ series) RSV Immunization for Adults (1 - 1-dose 75+ series) [facility] Start: 2021 RSV Vaccine (1 - 1-d ose 75+ series) RSV Vaccine (1 - 1-dose 75+ series) [facility] Start: 2021 RSV Vaccine (75+ years) RSV Vaccine (75+ years) [facility] Start: 2021 RSV vaccine (adult) (1 - 1-dose 75+ series) RSV vaccine (adult) (1 - 1-dose 75+ series) [facility] Start: 10-06-2020 Adult depression screening assessment DEPRESSION SCREENING [facility] Start: 2011 BONE DENSITY BONE DENSITY [facility] Start: 2011 Bone Density Screening Bone Density Screening [facility] Start: 2011 Pneumococcal 65+ yea rs Vaccine (1 - PCV) Pneumococcal 65+ years Vaccine (1 - PCV) [facility] Start: 2011 Pneumococcal vaccination [facility] Start: 2011 Pneumococcal Vaccine : 65+ (1 - PCV) Pneumococcal Vaccine: 65+ (1 - PCV) [facility] Start: 2011 Pneumococcal Vaccine : 65+ (1 of 1 - PCV) Pneumococcal Vaccine: 65+ (1 of 1 - PCV) [facility] Start: 2011 Pneumococcal Vaccine : 65+ Years (1 - PCV) Pneumococcal Vaccine: 65+ Years (1 - PCV) [facility] Start: 2011 Pneumococcal Vaccine : 65+ Years (1 of 1 - PCV) Pneumococcal Vaccine: 65+ Years (1 of 1 - PCV) [facility] Start: 2011 PNEUMOCOCCAL: 65+ (1 - PCV) PNEUMOCOCCAL: 65+ (1 - PCV) [facility] Start: 2011 PNEUMOVAX AGE 65 AND OVER WITH 5YR LOOKBACK (#1) PNEUMOVAX AGE 65 AND OVER WITH 5YR LOOKBACK (#1) [facility] Start: 2011 Screening for osteoporosis [facility] Start: 2006 Hepatitis B (HBV) Vaccine (optional start 60+ years) Hepatitis B (HBV) Vaccine (optional start 60+ years) [facility] Start: 2006 RSV Immunization age d 60 or older (1 - 1-dose 60+ series) RSV Immunization aged 60 or older (1 - 1-dose 60+ series) [facility] Start: 2006 RSV Vaccine (1 - 1-d ose 60+ series) RSV Vaccine (1 - 1-dose 60+ series) [facility] Start: 2001 Screening for osteoporosis DEXA (modify frequency per FRAX score) [facility] Start: 1996 Pneumococcal vaccination Pneumococcal Vaccine(s) (50+ yrs) (1 of 1 - PCV) [facility] Start: 1996 Pneumococcal Vaccine : 50+ (1 of 1 - PCV) Pneumococcal Vaccine: 50+ (1 of 1 - PCV) [facility] Start: 1996 Pneumococcal Vaccine : 50+ Years (1 of 1 - PCV) Pneumococcal Vaccine: 50+ Years (1 of 1 - PCV) [facility] Start: 1996 Shingles (RZV) Vacci ne (1 of 2) Shingles (RZV) Vaccine (1 of 2) [facility] Start: 1996 Shingles vaccine (1 of 2) Shingles vaccine (1 of 2) [facility] Start: 1996 SHINGRIX VACCINE (1 of 2) SHINGRIX VACCINE (1 of 2) [facility] Start: 1996 Zoster Vaccines (1 o f 2) Zoster Vaccines (1 of 2) [facility] Start: 1991 COLOGUARD (FIT-DNA) COLOGUARD (FIT-D NA) [facility] Start: 1991 Colonoscopy COLONOSCOPY [facility] Start: 1991 COLORECTAL CANCER SCREENING COLORECTAL CANCER SCREENING [facility] Start: [address] COLONOGRAPHY [facility] Start: 1991 FECAL OCCULT BLOOD FECAL OCCULT BLOO D [facility] Start: 1991 SIGMOIDOSCOPY SIGMOIDOSCOPY [facility] Start: 1965 DTaP/Tdap/Td vaccine (1 - Tdap) DTaP/Tdap/Td vaccine (1 - Tdap) [facility] Start: 1965 DTaP/Tdap/Td Vaccine s (1 - Tdap) DTaP/Tdap/Td Vaccines (1 - Tdap) [facility] Start: 1965 Hepatitis A (HAV) Vaccine (optional start 19+ years) Hepatitis A (HAV) Vaccine (optional start 19+ years) [facility] Start: 1965 Urine microalbumin profile [facility] Start: 1964 Anxiety Screening Anxiety Screening [facility] Start: 1964 Depression Screening Depression Scre ening [facility] Start: 1964 Diabetes mellitus screening Diabetes Screening [facility] Start: 1964 HEPATITIS C SCREENING HEPATITIS C SC REENING [facility] Start: 1964 Hepatitis C screening S [facility] Start: 1964 Tetanus + diphtheria + acellular pertussis vaccine (product) Tdap Booster [facility] Start: 1956 Lipid panel Lipids [facility] Start: 1946 COVID-19 Vaccine (#1) COVID-19 Vacci ne (#1) [facility] Start: 1946 Hepatitis B Vaccines (1 of 3 - 3-dose series) Hepatitis B Vaccines (1 of 3 - 3-dose series) [facility] Start: 1946 Lipid panel Lipid Panel [facility] Start: 1946 Medicare Advantage Annual Wellness Visit (AWV) Medicare Advantage Annual Wellness Visit (AWV) [facility] Start: 1946 Screening for osteoporosis Bone Density Scan [facility] 5,10-methylenetetrah ydr ofolate reductase gene analysis [facility] ECG 12 lead ECG 12 lead CV E CG Routine Irregular heart rate 02/23/2025 9:57 AM EDT [facility] Work Phone: End: 02-28-2023 ECG COMPLETE ECG COMPLETE ECG Routine PSVT (paroxysmal supraventricular tachycardia) (HCC) 1 Occurrences starting 02/28/2022 until 02/28/2023 [facility] Work Phone: Comment on above: 1 Occurrences starti ng 02/28/2022 until 02/28/2023 End: 02-24-2025 MR Brain WO contrast MRI BRAIN WO IVCON Radiology Routine Examination for normal comparison or control in clinical research 1 Occurrences starting 01/27/2024 until 02/24/2025 [facility] Work Phone: Comment on above: 1 Occurrences starti ng 01/27/2024 until 02/24/2025 End: 02-20-[address] for attenuation limited area NM PET/CT BRAIN [facility] IMAGING Radiology Routine Examination for normal comparison or control in clinical research 1 Occurrences starting 01/22/2023 until 02/20/2024 [facility] Work Phone: Comment on above: 1 Occurrences starti ng 01/22/2023 until 02/20/2024 End: 05-15-2025 PET+CT Brain for amyloidosis NM PET/CT BRAIN [facility] IMAGING Radiology Routine Examination of participant or control in clinical research 1 Occurrences starting 04/16/2024 until 05/15/2025 [facility] Work Phone: Comment on above: 1 Occurrences starti ng 04/16/2024 until 05/15/2025 PET+CT Brain for amyloidosis NM PET/CT BRAIN PLA[facility] IMAGING Radiology Routine Examination of participant or control in clinical research 04/26/2024 3:31 PM EDT [facility] Work Phone: End: 10-14-2025 PET+CT Brain for amyloidosis NM PET/CT BRAIN PLAQUE IMAGING Radiology Routine Examination of participant or control in clinical research 1 Occurrences starting 09/15/2024 until 10/14/2025 [facility] Work Phone: Comment on above: 1 Occurrences starti ng 09/15/2024 until 10/14/2025 PET+CT Brain for amyloidosis NM PET/CT BRAIN PLAQUE IMAGING Radiology Routine Examination of participant or control in clinical research 09/29/2024 3:39 PM EST [facility] Work Phone: [facility] Immunizations Immunization Date Immunization Notes Care Provider Kenroy hernandez 09-23-2007 influenza virus vacc ine, unspecified formulation [facility] Work Phone: [facility] Payers Date Payer Category Payer Medicare [id number] 2024 Medicare [id number] 2024 Self-pay [id number] 2022 Commercial Indemnity COMMERCIAL INSURANCE - OTHER Member Subscriber Plan / Payer (Effective 2022-Present) Name: ChoncodyYvette damicogy Relation to Subscriber: Self Name: Cyndee Vital Payer ID: Not on file Group ID: Not on file Type: Indemnity Address: [address] [place] [address] [id number] 11-09-2022 Medicare HMO [id number] 11-09-2022 Private Health Insurance [id number] 11-09-2022 Unknown COMMERCIAL INSUR ANCE - OTHER COMMERCIAL INSURANCE OTHER [id number] 11/09/2022-Present [address] [place] [address] Indemnity [id number] 11-09-2020 Medicare UHC AARP MEDICAR E [facility] MEDICARE O [id number] 11/09/2020-Present [phone] [address] [address] [place] [address] O [id number] 11-09-2020 Medicare [id number] 11-09-2020 Medicare [id number] 05-09-2011 Medicare MEDICARE PART A B [id number] 1945 Unknown [id number] Unknown [id number] Unknown [id number] .1945 Unknown [id number] 1945 Unknown [id number] .1945 Unknown [id number] Private Health Insurance Private Health Insurance [employer] [facility] MEB [id number] Unknown AARP [id number] Unknown PHYSICIAN [employer] CO [id number] Unknown [id number] Unknown [id number] Unknown [id number] Unknown [id number] Social History Date Type Detail Facility Start: 10-06-2019 End: 01-13-2024 Never smoked tobacco (finding) [facility] Start: 1945 Sex Assigned At Female [facility] Start: 10-06-2019 End: 01-13-2024 Tobacco use and exposure Smokeless tobacco non-user [facility] Start: 02-28-2022 End: 08-30-2024 Alcohol intake Current drinker of alcohol (finding) [facility] Start: 10-06-2019 History SDOH Alcohol Frequency 2 [facility] Start: 10-06-2019 History SDOH Alcohol Std Drinks 1 [facility] Start: 10-06-2019 History SDOH Alcohol Comment occasional [facility] Start: 1945 Sex Assigned At Not on file [facility] Start: 08-12-2022 End: 02-26-2023 Exposure to SARS-CoV-2 (event) Not sure [facility] Start: 12-21-2020 End: 08-31-2023 Tobacco smoking status NHIS Unknown if ever smoked [facility] Start: 02-26-2023 End: 02-23-2025 Alcohol intake Ex-drinker (finding) [facility] Start: 02-26-2023 End: 09-24-2023 Alcohol intake [facility] Start: 02-26-2023 End: 09-24-2023 Gender identity Not on file [facility] Start: 02-18-2023 Gender identity Identifies as female gender (finding) [facility] Start: 02-18-2023 Sexual orientation Heterosexual (finding) [facility] How often to you hav e a drink containing alcohol? Monthly or less [facility] Work Phone: How many standard dr inks containing alcohol do you have on a typical day? 1 or 2 [facility] Work Phone: How often do you hav e 6 or more drinks on 1 occasion? Never [facility] Work Phone: PHQ2 Score 0 [facility] Start: 06-09-2022 End: 11-04-2022 Sex Female (finding) [facility] Has the [employer], or [employer] threatened to shut off services in your home in past 12Mo No [facility] Do you belong to any clubs or organizations such as yazdanism groups, unions, fraternal or athletic groups, or school groups? Yes [facility] Are you now , , , , never or living with a partner? [facility] How hard is it for y ou to pay for the very basics like food, housing, medical care, and heating Somewhat hard [facility] Do you feel stress - tense, restless, nervous, or anxious, or unable to sleep at night because your mind is troubled all the time - these days [OSQ] To some extent [facility] Functional Status Date Assessment Result Facility 01-03-2024 Are you deaf, or do you have serious difficulty hearing No 01/03/2024 10:37 AM Tyra Patiño RN No [facility] 01-03-2024 Are you blind, or do you have serious difficulty seeing, even when wearing glasses No 01/03/2024 10:37 AM Tyra Patiño, PAULETTE No [facility] 01-03-2024 Do you have serious difficulty walking or climbing stairs No 01/03/2024 10:37 AM Tyra Patiño, PAULETTE No [facility] 01-03-2024 Do you have difficul ty dressing or bathing No 01/03/2024 10:37 AM Tyra Patiño, PAULETTE No [facility] 01-03-2024 Because of a physica l, mental, or emotional condition, do you have difficulty doing errands alone such as visiting a physician's office or shopping Yes 01/03/2024 10:37 AM yTra Patiño, RN Yes [facility] Mental Status Date Assessment Result Facility 01-03-2024 Because of a physica l, mental, or emotional condition, do you have serious difficulty concentrating, remembering, or making decisions Yes 01/03/2024 10:37 AM Tyra Patiño, RN Yes [facility] Clinical Notes 10-06-2019 to 02-24-2025 Telephone Encounter [...] Electronically Signed On 02-24-2025 10:47:30 EDT [address] [facility] 02-24-2025 Note IMPRESSION: Sinus rhythm Ventricular premature complex Abnormal R-wave progression, early transition No previous ECG available for comparison Electronically Signed On 02-24-2025 10:47:30 EDT by [facility] 02-23-2025 Telephone encounter Note Requested papers were signed by Dr Castillo and faxed to [phone]. [facility] 02-23-2025 Miscellaneous Notes Requested papers were signed by Dr Castillo and faxed to [phone]. Thanks! Patient will be moving into [facility]. They need the following per daughter: -History and Physical -Face Sheet -Med List -Progress Notes -Discharge orders ( statement from the physician recommending Print Support Specialist Care Placement) They could be sent by email or fax to [email or web address] F: [phone]" Can you print out today's note, today's letter, a facesheet, and a medication list? Once I sign the note/letter, then this can be faxed to [facility]. Thanks! I spoke to Elizabeth and [...] correct on the Med list for the alf documented in this encounter [facility] 02-23-2025 Telephone encounter Note Thanks! Patient will be moving into [facility]. They need the following per daughter: -History and Physical -Face Sheet -Med List -Progress Notes -Discharge orders ( statement from the physician recommending Group Home Care Placement) They could be sent by email or fax to [email or web address] F: [phone]" Can you print out today's note, today's letter, a facesheet, and a medication list? Once I sign the note/letter, then this can be faxed to [facility]. Thanks! [facility] 02-23-2025 Telephone encounter Note I spoke to Elizabeth and she said it was recently changed to: 25 mg at 10:00 am, 25 mg at 2:00 pm, 50 mg at 5:00 pm and 50 mg at 8:00 pm [facility] 02-23-2025 Telephone encounter Note Can you call and confirm the quetiapine (Seroquel) dosing with daughter Elizabeth? We have the dose as 50 mg at lunch, 50 mg at 4 pm, and 100 mg at 8 pm. I want to make sure it is correct on the Med list for the alf [facility] 02-23-2025 History of Present illness Narrative Images from the original note were not included. [facility] - [address] [address] Dept: [phone] Dept Loc: [phone] Visit type: [facility] Follow Up Visit Reason for Visit: [...] -Plan is for patient to move into [facility] care unit. I agree that she is appropriate for correction care placement at this time due to [...] Disease, hypertension, depression who presents to the [facility] for a follow-up visit. The patient [...] on seroquel for behavioral disturbance. Now with / care at home -Last seen in August 2024: Behaviors/Mood stable on the seroquel prescribed by her [facility] [employer]. They had prescribed ambien for sleep as well. MMSE 11/07 Received mychart message from the family: Patient will be moving into a memory care unit at [facility]. Will do the H and P [...] "wants to escape"). 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 -Sleep: Better now. -Appetite: Still eats well. 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 Activities: watches tv, spends time with cat >>02/17/22 just went on vacation, walks in condo, plays cards, plays piano, visiting friends >>08/22/22 outside, TV, cat sits out with neighbor, yazdanism, >>02/26/23 walks, visits with neighbors, yazdanism, kids' sports games, just came back from vacation >>10/22/23 same >>02/25/24 visits with aide, getting to physical therapy, going on walks >>08/25/24 visits with aides, goes to [facility], goes to [facility] >>02/23/25 same Exercise: walks around her house >>02/17/22 walking, weights >>08/22/22 walks around the condo or in her neighborhood >>02/26/23 walks >>10/22/23 walks >>02/25/24 walks, physical therapy >>08/25/24 walking, goint to [facility] Finances: meeting soon with Medicaid chief design drafter Healthcare Power of Record Tester: Yes, Daughter Elizabeth Financial Power of Record Tester: Yes, Daughter Elizabeth Living Will: Yes Guardian:No [...] sees her sometimes >>02/25/24 has 24 hour healthcare architect, April who is living with her, another [...] members. SW suggested that daughter check out [email or web address] to check out any other products that [...] will do fresh foods, etc, goes to [facility] [employer] >>02/26/23 patient buys her dry products at [facility] [employer], daughter picks up the rest >>10/22/23 same [...] same documented in this encounter [facility] 01-24-2025 Telephone encounter Note Request for refill received from interface Last appointment: 08/25/2024 Next appointment: 02/23/2025 Pharmacy confirmed: [x] Yes [] No [facility] 01-24-2025 Miscellaneous Notes Request for refill received from interface Last appointment: 08/25/2024 Next appointment: 02/23/2025 Pharmacy confirmed: [x] Yes [] No documented in this encounter [facility] 09-29-2024 History of Present illness Narrative [...] PATIENT PRESENTS WITH AN IMPLANTABLE OR ATTACHED BASIN OPERATOR: No CREATININE: Creatinine Date Value Ref Range [...] safety can be found using this link: [email or web address] [email or web address]-%20Diagnostic%20Nuclear %20Medicine%20Procedures.pdf SIGNATURE: MERLINE Silva) PATIENT NAME: Cyndee Vital DATE: September 29, 2024 TIME: 2:27 PM PAGER/CONTACT #: documented in this encounter [facility] 09-29-2024 Note HNO ID: [id number] Author: RAISA SMITH RT (R) Service: Radiology [...] PATIENT PRESENTS WITH AN IMPLANTABLE OR ATTACHED BASIN OPERATOR: No CREATININE: Creatinine Date Value Ref Range [...] 1424 PATIENT DISCHARGED TO: Ambulatory patient, left [place] department area. Is this a therapy: No A Diagnostic radioactive procedure has taken place, with no further precautions necessary other than routine body substance precautions. More information regarding radiation safety can be found using this link: [email or web address]%20Pro tection%20-% 20Diagnostic%20Nuclear%20Medicine% 20Procedures.pdf SIGNATURE: Raisa Smith RT(R) PATIENT NAME: Cyndee Vital DATE: September 29, 2024 TIME: 2:27 PM PAGER/CONTACT #: [facility] 09-19-2024 Telephone encounter Note CYNDEE VITAL \\ [id number] DOS: 09/29/24 PET INJ: 1430 PET 4: 1530 APPT NOTES: DO NOT SUBMIT AUTH TO INSURANCE, BILLED TO [employer] [id number] PET BRAIN AMYVID [employer] TRANSMITTAL FORM PET 2 ONLY NO CHARGE FOR DOSE [facility] 09-19-2024 Miscellaneous Notes CYNDEE VITAL \\ [id number] DOS: 09/29/24 PET INJ: 1430 PET 4: 1530 APPT NOTES: DO NOT SUBMIT AUTH TO INSURANCE, BILLED TO [facility] ANU [id number] PET BRAIN AMYVID [facility] TRANSMITTAL FORM PET 2 ONLY NO CHARGE FOR DOSE documented in this encounter [facility] 08-25-2024 History of Present illness Narrative Review [...] from the original note were not included. [facility] [address] [facility] [address] Dept: [phone] Dept Loc: [phone] Visit type: [facility] Follow Up Visit Reason for Visit: [...] Disease, hypertension, depression who presents to the [facility] for a follow-up visit. The patient [...] well. Hasn't complained about sciatica. Appetite: Good. 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 She has gained weight. [...] here close to daughter in 2018 from [place] >>02/17/22 same >>02/26/23 same >>10/22/23 same >>02/25/24 [...] of education: some college Occupation: retired from [employer] Activities: watches tv, spends time with cat >>02/17/22 just went on vacation, walks in [place], plays cards, plays piano, visiting friends >>08/22/22 outside, TV, cat sits out with neighbor, yazdanism, >>02/26/23 walks, visits with neighbors, yazdanism, kids' sports games, just came back from vacation >>10/22/23 same >>02/25/24 visits with aide, getting to physical therapy, going on walks >>08/25/24 visits with aides, goes to [facility], goes to [facility] Exercise: walks around her house >>02/17/22 walking, weights >>08/22/22 walks around the condo or in her neighborhood >>02/26/23 walks >>10/22/23 walks >>02/25/24 walks, physical therapy >>08/25/24 walking, goint to [facility] Finances: meeting soon with Medicaid chief design drafter Healthcare Power of Record Tester: Yes, Daughter Elizabeth Financial Power of Record Tester: Yes, Daughter Elizabeth Living Will: Yes Guardian:No [...] sees her sometimes >>02/25/24 has 24 hour healthcare architect, Xochitl who is living with her, another [...] members. SW suggested that daughter check out www.[email or web address]. [employer] to check out any other products that [...] will do fresh foods, etc, goes to [facility] >>02/26/23 patient buys her dry products at [facility] [employer], daughter picks up the rest >>10/22/23 same [...] same documented in this encounter [facility] 07-22-2024 Telephone encounter Note Ordering provider: Gunjan Castillo Date of last office visit: 02/25/24 Date of next office visit: 08/25/24 Updated/Validated preferred pharmacy: Yes [facility] - [place], [place] - [address] [phone] Patient instructed to contact the pharmacy prior [...] of last refill (see medication tab): 12/28/23 [facility] 07-22-2024 Miscellaneous Notes Ordering provider: Gunjan Castillo Date of last office visit: 02/25/24 Date of next office visit: 08/25/24 Updated/Validated preferred pharmacy: Yes [facility] - [place], [place] - [address] [phone] Patient instructed to contact the pharmacy prior [...] 12/28/23 documented in this encounter [facility] 04-26-2024 History of Present illness Narrative [...] PATIENT PRESENTS WITH AN IMPLANTABLE OR ATTACHED BASIN OPERATOR: No CREATININE: Creatinine Date Value Ref Range [...] safety can be found using this link: [email or web address] [email or web address]-%20Diagnostic%20Nuclear %20Medicine%20Procedures.pdf SIGNATURE: MERLINE Dan) PATIENT NAME: Cyndee Vital DATE: April 26, 2024 TIME: 2:22 PM PAGER/CONTACT #: documented in this encounter [facility] 04-26-2024 Note HNO ID: [id number] Author: EMERSON MOCTEZUMA RT (R) Service: Nuclear [...] PATIENT PRESENTS WITH AN IMPLANTABLE OR ATTACHED BASIN OPERATOR: No CREATININE: Creatinine Date Value Ref Range [...] 26, 2024 TIME: 2:22 PM PAGER/CONTACT #: [facility] 04-18-2024 Telephone encounter Note Scheduled as requested 04/26 @ 1530 [facility] 04-18-2024 Miscellaneous Notes Scheduled as requested 04/26 @ 1530 CYNDEE VITAL \\ [id number] DOS: 04/26/24 PET INJ: 1430 PET 2: 1530 APPT NOTES: DO NOT SUBMIT AUTH TO INSURANCE, BILLED TO [facility] PROTHENA [id number] PET BRAIN AMYVID [facility]EARCH STUDY TRANSMITTAL FORM PET 2 ONLY documented in this encounter [facility] 04-18-2024 Telephone encounter Note CYNDEE VITAL \\ [id number] DOS: 04/26/24 PET INJ: 1430 PET 2: 1530 APPT NOTES: DO NOT SUBMIT AUTH TO INSURANCE, BILLED TO [facility] PROTHENA [id number] PET BRAIN AMYVID RESEARCH STUDY TRANSMITTAL FORM PET 2 ONLY [facility] 02-25-2024 History of Present illness Narrative Review [...] from the original note were not included. [facility] [address] [facility] [address] Dept: [phone] Dept Loc: [phone] Visit type: [facility] Follow Up Visit Reason for Visit: [...] her home. Will eventually transition into a alf but family want to keep her home as long as possible. Follow up in about 6 months (around 08/26/2024). Subjective HPI: Cyndee Vital is a 78 y.o. female with past medical history of Alzheimer's Disease, hypertension, depression who presents to the [facility] for a follow-up visit. The patient [...] the end of December 2023: abdominal/back pain. [place] it was related to sciatica. Also tested positive for COVID. -Seen in ER on 01/12: she had a fall off the toilet and hit the back of her had. She had been taking flexeril for back pain. -In middle of January, daughter called in concerned about behavior changes. Patient left her condo, approached a supervisory historian, and asked them to take her home. [...] and vitamin B6 History obtained from caregiver(s): Sreekanth Betts -She has had a lot of cognitive [...] back -She now has a live in elderly caregiver and is receiving 01/06 care. Son is [...] poor. Comprehension: poor. Always losing things. Will continuous pickling line pickler helper a pack of cards and will ask [...] asymmetry. Motor: Motor function is intact. Coordination: Cnugyq-Kheu-Kkudcv Test normal. Psychiatric: Attention and Perception: Attention normal. Mood and Affect: Mood and affect normal. Speech: Speech normal. Cognition and Memory: Cognition is impaired. Memory is impaired. Comments: Poor insight Data Reviewed and Summarized Testing: The following tests were performed at today's visit and scanned in to thechart: MoCA score: 06/07, MIS score: 415 Clock drawing score: 2/7 PHQ-9 score: 1 I independently reviewed the [place] Cognitive Assessment from 02/25/2024. 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 Activities: watches tv, spends time with cat >>02/17/22 just went on vacation, walks in condo, plays cards, plays piano, visiting friends >>08/22/22 outside, TV, cat sits out with neighbor, yazdanism, >>02/26/23 walks, visits with neighbors, yazdanism, kids' sports games, just came back from vacation >>10/22/23 same >>02/25/24 visits with aide, getting to physical therapy, going on walks Exercise: walks around her house >>02/17/22 walking, weights >>08/22/22 walks around the condo or in her neighborhood >>02/26/23 walks >>10/22/23 walks >>02/25/24 walks, physical therapy Finances: meeting soon with Medicaid chief design drafter Healthcare Power of Record Tester: Yes, Daughter Elizabeth Financial Power of Record Tester: Yes, Daughter Elizabeth Living Will: Yes Guardian:No [...] sees her sometimes >>02/25/24 has 24 hour healthcare architect, Xochitl who is living with her, another [...] members. SW suggested that daughter check out www.[email or web address]. [employer] to check out any other products that [...] will do fresh foods, etc, goes to [facility] >>02/26/23 patient buys her dry products at [facility] [employer], daughter picks up the rest >>10/22/23 same [...] same documented in this encounter [facility] 02-01-2024 History of Present illness Narrative [...] PATIENT PRESENTS WITH AN IMPLANTABLE OR ATTACHED BASIN OPERATOR: No RADIOLOGY DEPARTMENT: MR; Exam(s) Completed: Head: Routine Brain PERIPHERAL IV DATA: Not applicable SIGNED BY: RT Radha(R) February 01, 2024 10:07 AM documented in this encounter [facility] 01-26-2024 Telephone encounter Note I spoke to daughter Elizabeth. I read her the instructions from Dr Bright verbatim. She understands she needs to be seen by PCP first available. I also got patient scheduled with [facility] 02/25/2024. [facility] 01-26-2024 Miscellaneous Notes I spoke to pravin Johnson. I read her the instructions from Dr Bright verbatim. She understands she needs to be seen by PCP first available. I also got patient scheduled with [facility] 02/25/2024. Noted thank you. Please have office schedule an appointment with us. Also should be seen by PCP to rule out medical causes of increased anxiety Late entry. Call returned at time of page. I spoke with [facility] nurse Yudy. I asked Yudy (nurse) to [...] Social Work(er) Yesica Coats. Sending to our director chemistry Yoselyn to please schedule in the next 2-[address] Castillo if Dr. Castillo has any openings. Otherwise, can offer patient to see a different provider who has openings sooner if patient/family amenable. S: Patient's Daughter Elizabeth spoke with [facility] nurse regarding update to previous TE B: [...] states she was in a complete panic. [facility] Police took her to her home and [...] very rapidly. R: Secure chat sent to induction coordination power engineer Provider Dr Bright who called and advised that Patient have increased supervision at home, if Daughter Elizabeth feels the Patient is a risk to herself or others she should call 911 and have the Patient taken to [facility] emergency room, also advised Elizabeth that they [...] symptoms. S: Patient's daughter, Elizabeth spoke with [facility] nurse regarding anxiety and fear. B: Onset [...] the triager Protocols used: Anxiety and Panic [id number] documented in this encounter [facility] [employer] 01-26-2024 Telephone encounter Note Noted thank you. Please have office schedule an appointment with us. Also should be seen by PCP to rule out medical causes of increased anxiety [facility] 01-25-2024 Telephone encounter Note Late entry. Call returned at time of page. I spoke with [facility] nurse Yudy. I asked Yudy (nurse) to [...] Social Work(er) Yesica Coats. Sending to our director chemistry Yoselyn to please schedule in the next 2-[address] Castillo if Dr. Castillo has any openings. Otherwise, can offer patient to see a different provider who has openings sooner if patient/family amenable. [facility] Work Phone: 01-25-2024 Telephone encounter Note S: Patient's Daughter Elizabeth spoke with [facility] nurse regarding update to previous TE B: [...] states she was in a complete panic. [facility] Police took her to her home and [...] very rapidly. R: Secure chat sent to induction coordination power engineer Provider Dr Bright who called and advised that Patient have increased supervision at home, if Daughter Elizabeth feels the Patient is a risk to herself or others she should call 911 and have the Patient taken to [facility] emergency room, also advised Elizabeth that they need to call PCP Dr Cook and have Patient evaluated. Elizabeth understands care advice. She is asking if Dr Castillo could follow up with her and schedule an appointment to see her. Message to Provider, please advise. No further needs at this time. Patient instructed to call back with new or worsening symptoms. [facility] 01-25-2024 Telephone encounter Note Error [facility] 01-25-2024 Miscellaneous Notes Error documented in this encounter [facility] 01-25-2024 Telephone encounter Note S: Patient's [...] the triager Protocols used: Anxiety and Panic [id number] [facility] 12-28-2023 Telephone encounter Note Request for refill received from [facility] Last appointment: 10/22/2024 Next appointment: recall Pharmacy confirmed: [x] Yes [] No [facility] 12-28-2023 Miscellaneous Notes Request for refill received from [facility] Last appointment: 10/22/2024 Next appointment: recall Pharmacy confirmed: [x] Yes [] No documented in this encounter [facility] 10-22-2023 History of Present illness Narrative Images from the original note were not included. [facility] [address] [facility] [address] Dept: [phone] Dept Loc: [phone] Visit type: [facility] Follow Up Visit Reason for Visit: Dementia Visit Date: 10/22/2023 Assessment and Plan 1. Alzheimer's dementia without behavioral disturbance (HCC) - [facility] IADL Occupational Therapy 2. History of depression 3. Driving safety issue - [facility]AD[facility] Occupational Therapy 4. Vitamin B12 deficiency [...] Disease, hypertension, depression who presents to the [facility] for a follow-up visit. The patient [...] use the microwave but doesn't cook anymore -senior care memory: good. -She had one episode of [...] of "dementia" is mentioned -Walks around her expressor software complex for exercise. She enjoys this. History [...] here close to daughter in 2018 from [place] >>02/17/22 same >>02/26/23 same >>10/22/23 same Household [...] of education: some college Occupation: retired from [employer] Activities: watches tv, spends time with cat >>02/17/22 just went on vacation, walks in condo, plays cards, plays piano, visiting friends >>08/22/22 outside, TV, cat sits out with neighbor, yazdanism, >>02/26/23 walks, visits with neighbors, yazdanism, kids' sports games, just came back from vacation >>10/22/23 same Exercise: walks around her house >>02/17/22 walking, weights >>08/22/22 walks around the condo or in her neighborhood >>02/26/23 walks >>10/22/23 walks Finances: meeting soon with Medicaid chief design drafter Healthcare Power of Record Tester: Yes, Daughter Elizabeth Financial Power of Record Tester: Yes, Daughter Elizabeth Living Will: Yes Guardian:No [...] members. SW suggested that daughter check out www[employer]. [employer] to check out any other products that [...] will do fresh foods, etc, goes to [facility] >>02/26/23 patient buys her dry products at [facility] [employer], daughter picks up the rest >>10/22/23 same [...] same documented in this encounter [facility] 10-22-2023 Instructions Gunjan Castillo MD - 10/22/2023 2:45 PM EST Restart Vitamin B12 pill. This can be picked up Over The Counter. Can take 500 mcg or 1000 mcg once a day. Please get your vitamin b12 levels rechecked in one month. documented in this encounter [facility] 09-24-2023 History of Present illness Narrative RADIOLOGY [...] 1355 PATIENT DISCHARGED TO: Ambulatory patient, left [place] department area. A Diagnostic radioactive procedure has taken place, with no further precautions necessary other than routine body substance precautions. More information regarding radiation safety can be found using this link: [email or web address] [email or web address] %[email or web address].[email or web address] SIGNATURE: RT Tae(R) PATIENT NAME: Cyndee Vital DATE: September 24, 2023 TIME: 2:02 PM PAGER/CONTACT #: documented in this encounter [facility] 09-17-2023 Miscellaneous Notes CYNDEE VITAL \\ [id number] DOS: 09/24/23 PET INJ: 1430 PET 2: 1530 APPT NOTES: DO NOT SUBMIT AUTH TO INSURANCE, BILLED TO RESEARCH STUDY GUSTAVOA [id number] PET BRAIN AMYVID RESEARCH STUDY TRANSMITTAL FORM PET 2 ONLY documented in this encounter [facility] 07-30-2023 Miscellaneous Notes Opend in error documented in this encounter [facility] 07-03-2023 Telephone encounter Note (1) Medication name: [...] refill (see medication tab): 02.19.22 [facility] 07-03-2023 Miscellaneous Notes (1) Medication name: [...] 02.19.22 documented in this encounter [facility] 04-13-2023 Instructions Celina Levy MD - [...] Simple Zinc oxide documented in this encounter [facility] 04-13-2023 History of Present illness Narrative Vitals not obtained per provider's instructions. Patient was identified by name and date of . Dropati Crichlow Why are you seeing the gum mixer (doctor) today? mole What specific location on [...] Tobacco Use? 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: watches tv, spends time with cat >>02/17/22 just went on vacation, walks in condo, plays cards, plays piano, visiting friends >>08/22/22 outside, TV, cat sits out with neighbor, yazdanism, >>02/26/23 walks, visits with neighbors, yazdanism, kids' sports games, just came back from vacation Exercise: walks around her house >>02/17/22 walking, weights >>08/22/22 walks around the condo or in her neighborhood >>02/26/23 walks Finances: meeting soon with Medicaid chief design drafter Healthcare Power of Record Tester: Yes, Daughter Elizabeth Financial Power of Record Tester: Yes, Daughter Elizabeth Living Will: Yes Guardian:No [...] members. SW suggested that daughter check out www[employer]. [employer] to check out any other products that [...] will do fresh foods, etc, goes to [facility] >>02/26/23 patient buys her dried products at [employer], daughter picks up the rest Meal prep [...] from the original note were not included. [facility] [address] [facility] [address] Dept: [phone] Dept Loc: [phone] Visit type: [facility] Follow Up Visit Reason for Visit: [...] Disease, hypertension, depression who presents to the [facility] for a follow-up visit. The patient [...] ADL issues. Still driving. MOCA was a 20 History obtained from caregiver(s): Daughter Elizabeth -She [...] the house a lot. Sometimes around the [employer] complex Reviewed progress notes completed by ALFREDO [...] evaluation documented in this encounter [facility] 02-26-2023 Instructions Gunjan Castillo MD - [...] pharmacy. documented in this encounter [facility] 02-19-2023 History of Present illness Narrative [...] link: [email or web address] [email or web address] %[email or web address] SIGNATURE: RT Amanda(Colette) PATIENT NAME: Cyndee Vital DATE: February 19, 2023 TIME: 2:37 PM PAGER/CONTACT #: documented in this encounter [facility] 02-19-2023 Telephone encounter Note Rescheduled. [facility] 02-19-2023 Miscellaneous Notes Rescheduled. DONNA Castillo Name of caller: Elizabeth Contact phone number: [phone] Relationship to Patient: patient daughter Provider: Dr. Castillo Practice: [facility] Chief Complaint/Reason for Call: The patient and daughter is at the [facility] getting a PET Scan because the patient [...] Yes documented in this encounter [facility] 02-19-2023 Telephone encounter Note DONNA Castillo [facility] 02-19-2023 Telephone encounter Note Name of caller: Elizabeth Contact phone number: [phone] Relationship to Patient: patient daughter Provider: Dr. Castillo Practice: [facility] Chief Complaint/Reason for Call: The patient and daughter is at the [facility] getting a PET Scan because the patient [...] to return their call: Yes [facility] 02-19-2023 Miscellaneous Notes CYNDEE VITAL \\ [id number] DOS: 02/19/23 PET INJ: 1445 PET 2: 1545 APPT NOTES: ANU [id number] PET BRAIN AMYVID RESEARCH STUDY TRANSMITTAL FORM PET 2 ONLY documented in this encounter [facility] 02-28-2022 History of Present illness Narrative Images from the original note were not included. [facility] SECTION OF [facility] CARDIOLOGY [facility] OUTPATIENT VISIT DATE February 28, 2022 PRIMARY CARE PHYSICIAN: Emi Cook (Aib) [address] [facility] [address] [place] [id number] HISTORY OF PRESENT ILLNESS: Ms. Vital is [...] Department of Medicine and Division of Cardiology, [facility] Submarine Advisory Team Watch Officergroundskeeping maintenance worker [facility] Submarine Advisory Team Watch Officer of Congestive Heart Failure Clinic [facility] Cardiology Office Submarine Advisory Team Watch Officer [facility] Staff Decorating Consultant, Rosemary and Kristina Johnston Department of Cardiovascular Medicine/Heart and Vascular [place], [facility] Clinical Inspector Elevators Profressor of Medicine, [facility] Please note: This note has been produced using speech recognition software and may contain errors related to that system including lianet, punctuation, spelling, words, gender and phrases that may be inappropriate. documented in this encounter [facility] 10-06-2019 History of Past i llness Narrative [...] of this encounter (statuses as of 02/28/2022) [facility] History of Past illness Narrative* Problem Noted [...] of this encounter (statuses as of 01/22/2023) [facility] History of Past illness Narrative* Problem Noted [...] of this encounter (statuses as of 02/20/2023) [facility] History of Past illness Narrative* Problem Noted [...] of this encounter (statuses as of 02/20/2023) [facility] History of Past illness Narrative* Problem Noted [...] of this encounter (statuses as of 07/30/2023) [facility] History of Past illness Narrative* Problem Noted [...] of this encounter (statuses as of 09/17/2023) [facility] History of Past illness Narrative* Problem Noted [...] of this encounter (statuses as of 09/25/2023) [facility] History of Past illness Narrative* Problem Noted [...] of this encounter (statuses as of 09/25/2023) [facility] History of Past illness Narrative* Problem Noted [...] of this encounter (statuses as of 01/27/2024) [facility] History of Past illness Narrative* Problem Noted [...] of this encounter (statuses as of 02/02/2024) [facility] + Plan note No data available for this section [facility] Evaluation note* Diagnosis PSVT (paroxysmal supraventricular tachycardia) (HCC)- Primary Paroxysmal supraventricular tachycardia PVC (premature ventricular contraction) Other premature beats Pure hypercholesterolemia documented in this encounter [facility] note* Diagnosis Examination for normal comparison or control in clinical research- Primary Examination of participant in clinical trial [facility]* Diagnosis Onset Date Resolution Status Acute buttock pain acute Hyperlipidemia acute Shingles acute [facility] Work Phone: Evaluation note* Diagnosis Examination for normal comparison or control in clinical research Examination of participant in clinical trial documented in this encounter [facility] note* Diagnosis Alzheimer's dementia without behavioral disturbance (HCC)- Primary Alzheimer's disease Depression, unspecified depression type [facility] Diagnosis Seborrheic keratoses- Primary Ephelides Other dyschromia Lentigines Other dyschromia Multiple nevi [facility] Diagnosis Depression, unspecified depression type [facility] Diagnosis Memory changes Memory loss documented in this encounter [facility] note* Diagnosis Alzheimer's dementia without behavioral disturbance (HCC)- Primary Alzheimer's disease History of depression Personal history of other mental disorder Driving safety issue Vitamin B12 deficiency Other B-complex deficiencies documented in this encounter [facility] note* Diagnosis Examination for normal comparison or control in clinical research- Primary Examination of participant in clinical trial documented in this encounter [facility] note* Diagnosis Onset Date Resolution Status Alzheimer's dementia acute Sciatica, left side acute Alzheimer's dementia acute Change in mental status acut e Panic attacks acute Sciatica, left side acute [facility] Work Phone: Evaluation note* Diagnosis Examination for normal comparison or control in clinical research Examination of participant in clinical trial documented in this encounter [facility] note* Diagnosis Alzheimer's dementia with behavioral disturbance (HCC)- Primary Alzheimer's disease documented in this encounter [facility] note* Diagnosis Examination of participant in clinical trial- Primary documented in this encounter [facility] note* Diagnosis Examination of participant or control in clinical research- Primary Examination of participant in clinical trial documented in this encounter [facility] note* Diagnosis Examination of participant or control in clinical research- Primary Examination of participant in clinical trial documented in this encounter [facility] note* Diagnosis Examination of participant or control in clinical research Examination of participant in clinical trial documented in this encounter [facility] note* Diagnosis Depression, unspecified depression type documented in this encounter [facility] note* Diagnosis Alzheimer's dementia with behavioral disturbance (HCC)- Primary Alzheimer's disease documented in this encounter [facility] note* Diagnosis Examination of participant or control in clinical research Examination of participant in clinical trial documented in this encounter [facility] note* Diagnosis 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 Irregular heart rate Primary hypertension Unspecified essential hypertension documented in this encounter [facility] note* Diagnosis Irregular heart rate documented in this encounter [facility] note* Diagnosis 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 Irregular heart rate Primary hypertension Unspecified essential hypertension Irregular heart rate documented in this encounter [facility] Discharge instructions No data available for this section [facility] for referral (narrative)* Outpatient Procedure (Routine) - Closed Specialty Diagnoses / Procedures Referred By Contac t Referred To Contact [facility] Diagnoses PSVT (paroxysmal supraventricular tachycardia) (HCC) Procedures ECG COMPLETE ECG ROUTINE ECG W/LEAST 12 LDS W/I&R Marcus Sorensen DO [address] [place] [address] [facility] [place] [address] [place] [address] Referral ID Status Reason Start Date Expiration Date V isits Requested Visits Authorized [id number] Closed Auto-Generate d Referral 02/28/2022 02/28/2023 1 1 [facility] for referral (narrative)* Diagnostic Procedure Only (Routine) - Pending Review Specialty Diagnoses / Procedures Referred By Contac t Referred To Contact MOLECULAR & FUNCTIONAL IMAGING Diagnoses Examination for normal comparison or control in clinical research Procedures NM PET/CT BRAIN PLAQUE IMAGING PET IMAGING CT FOR ATTENUATION LIMITED AREA Amilcar Bradford MD, MD, PhD [address] [id number] Molecular & Functional Imaging [address] [place], [place] [id number] Referral ID Status Reason Start Date Expiration Date Visits Requested Visits Authorized [id number] Pending Review Auto-Generat ed Referral 01/22/2023 02/20/2024 1 1 [facility] for referral (narrative)* Diagnostic Procedure Only (Routine) - Closed Specialty Diagnoses / Procedures Referred By Contac t Referred To Contact MOLECULAR [facility] FUNCTIONAL IMAGING Diagnoses Examination for normal comparison or control in clinical research Procedures NM PET/CT BRAIN PLAQUE IMAGING PET IMAGING CT FOR ATTENUATION LIMITED AREA Amilcar Bradford MD, , PhD [address] [place] [address] Molecular & Functional Imaging [address] [place] [address] Referral ID Status Reason Start Date Expiration Date V isits Requested Visits Authorized [id number] Closed Auto-Generate d Referral 01/22/2023 02/20/2024 1 1 [facility] for referral (narrative)* Diagnostic Procedure Only (Routine) - Closed Specialty Diagnoses / Procedures Referred By Contac t Referred To Contact MOLECULAR & FUNCTIONAL IMAGING Diagnoses Memory changes Procedures NM PET/CT BRAIN PLAQUE IMAGING PET IMAGING CT FOR ATTENUATION LIMITED AREA Amilcar Bradford MD, MD, PhD [address] [place] [address] Molecular & Functional Imaging [address] [id number] Referral ID Status Reason Start Date Expiration Date V isits Requested Visits Authorized [id number] Closed Auto-Generate d Referral 09/15/2023 10/13/2024 1 1 [facility] for referral (narrative)* Consultation (Routine) - Pending Review Specialty Diagnoses / Procedures Referred By Rufino Referred To Contact Occupational Therapy / Geriatric Medicine Diagnoses Alzheimer's dementia without behavioral disturbance (HCC) Driving safety issue Procedures [facility] OFFICE/OUTPATIENT [facility] 60-74 MINUTES Gunjan Castillo MD [address] [place] [address] [address] [facility] [address] [place] [address] Referral ID Status Reason Start Date Expiration Date Visits Requested Visits Authorized [id number] Pending Review Specialty Services Required 3 10/22/2024 99 99 [facility] for referral (narrative)* Diagnostic Procedure Only (Routine) - Pending Review Specialty Diagnoses / Procedures Referred By Rufino t Referred To Contact MOLECULAR & FUNCTIONAL IMAGING Diagnoses Examination of participant or control in clinical research Procedures NM PET/CT BRAIN PLAQUE IMAGING PET IMAGING CT FOR ATTENUATION LIMITED AREA Amilcar Bradford MD, , PhD [address] [place] [address] Molecular & Functional Imaging [address] [place] [address] Referral ID Status Reason Start Date Expiration Date Visits Requested Visits Authorized [id number] Pending Review Auto-Generat ed Referral 04/16/2024 05/15/2025 1 1 [facility] for referral (narrative)* Diagnostic Procedure Only (Routine) - New Request Specialty Diagnoses / Procedures [facility] Referred To Contact MOLECULAR & FUNCTIONAL IMAGING Diagnoses Examination of participant or control in clinical research Procedures NM PET/CT BRAIN PLAQUE IMAGING PET IMAGING CT FOR ATTENUATION LIMITED AREA Amilcar Bradford MD, , PhD [address] [place] [address] Molecular & Functional Imaging [address] [place] [address] Referral ID Status Reason Start Date Expiration Date Visits Requested Visits Authorized [id number] New Request Auto-Generat ed Referral 09/15/2024 10/14/2025 1 1 [facility] for visit Narrative* Diagnostic Procedure Only (Routine) - Closed Specialty Diagnoses / Procedures [facility] Referred To Contact MOLECULAR & FUNCTIONAL IMAGING Diagnoses Examination for normal comparison or control in clinical research Procedures NM PET/CT BRAIN PLAQUE IMAGING PET IMAGING CT FOR ATTENUATION LIMITED AREA Amilcar Bradford MD, MD, PhD [address] [place] [address] Molecular & Functional Imaging [address] [place] [address] Referral ID Status Reason Start Date Expiration Date V isits Requested Visits Authorized [id number] Closed Auto-Generate d Referral 01/22/2023 02/20/2024 1 1 [facility] for visit Narrative* Diagnostic Procedure Only (Routine) - Closed Specialty Diagnoses / Procedures Referred By Rufino estrella Referred To Contact MOLECULAR & FUNCTIONAL IMAGING Diagnoses Memory changes Procedures NM PET/CT BRAIN PLAQUE IMAGING PET IMAGING CT FOR ATTENUATION LIMITED AREA Amilcar Bradford MD, MD, PhD [address] [place] [address] Molecular & Functional Imaging [address] [place] [address] Referral ID Status Reason Start Date Expiration Date V isits Requested Visits Authorized [id number] Closed Auto-Generate d Referral 09/15/2023 10/13/2024 1 1 [facility] for visit Narrative* Diagnostic Procedure Only (Routine) - Closed Specialty Diagnoses / Procedures Referred By Rufino estrella Referred To Contact MOLECULAR & FUNCTIONAL IMAGING Diagnoses Examination of participant or control in clinical research Procedures NM PET/CT BRAIN PLAQUE IMAGING PET IMAGING CT FOR ATTENUATION LIMITED AREA Amilcar Bradford MD, MD, PhD [address] [id number] Molecular & Functional Imaging [address] [place] [address] Referral ID Status Reason Start Date Expiration Date V isits Requested Visits Authorized [id number] Closed Auto-Generate d Referral 04/16/2024 05/15/2025 1 1 [facility] for visit Narrative* Diagnostic Procedure Only (Routine) - Closed Specialty Diagnoses / Procedures Referred By Rufino estrella Referred To Contact MOLECULAR & FUNCTIONAL IMAGING Diagnoses Examination of participant or control in clinical research Procedures NM PET/CT BRAIN PLAQUE IMAGING PET IMAGING CT FOR ATTENUATION LIMITED AREA Amilcar Bradford MD MD, PhD [address] [place] [address] Molecular & Functional Imaging [address] [place] [address] Referral ID Status Reason Start Date Expiration Date V isits Requested Visits Authorized [id number] Closed Auto-Generate d Referral 09/15/2024 10/14/2025 1 1 [facility] Summary Purpose Family History No Family History Records Found Relationship Condition Age at Onset Recorded Date/T debbie mother Malignant neoplasm Unknown Malignant neoplasm of ovary Unknown daughter Malignant neoplasm of breast Unknown uncle Cardiac disease Unknown Advance Directives No Advanced Directives Records FoundDocuments on File Type Date Recorded Patient Manager Money Expl anation Advance Directive(s) 10/06/2019 2:19 PM Documents on File Type Date Recorded Patient Manager Money Expl anation ACP-Advance Directive 11/11/2021 Chief Complaint [...] CONTRAST MATERIAL Amilcar Bradford MD, MD, PhD [address] [place] [address] [facility] [address] [address] Referral ID Status Reason Start Date Expiration Date Visits Requested Visits Authorized [id number] Pending Review Auto-Generat ed Referral 01/27/2024 02/24/2025 1 1 Additional Source Comments INFORMATION SOURCE (unrecogn ized section and content) DATE CREATED AUTHOR [facility]/21/2021 [facility] DATE CREATED AUTHOR AUTHOR'S ORGANIZ ATION 11/15/2021 [facility] DATE CREATED AUTHOR AUTHOR'S ORGANIZ ATION 08/30/2022 [facility] DATE CREATED AUTHOR AUTHOR'S ORGANIZ ATION 04/18/2023 [facility] DATE CREATED AUTHOR AUTHOR'S ORGANIZ ATION 09/01/2024 [facility] DATE CREATED AUTHOR AUTHOR'S ORGANIZ ATION 02/25/2025 [facility] DATE CREATED AUTHOR AUTHOR'S ORGANIZ ATION 03/17/2025 [facility] DATE CREATED AUTHOR AUTHOR'S ORGANIZ ATION 06/21/2025 [facility] Source Comments (unrecognize d section and content) In the event this informatio n is protected by the Federal Confidentiality of Alcohol and Drug Abuse Patient Records regulations: The Federal rules restrict any use of the information to criminally investigate or prosecute any alcohol or drug abuse patient.[facility] the event this information is protected by the Federal Confidentiality of Alcohol and Drug Abuse Patient Records regulations: The Federal rules restrict any use of the information to criminally investigate or prosecute any alcohol or drug abuse patient.[facility] the event this information is protected by the Federal Confidentiality of Alcohol and Drug Abuse Patient Records regulations: The Federal rules restrict any use of the information to criminally investigate or prosecute any alcohol or drug abuse patient.[facility] the event this information is protected by the Federal Confidentiality of Alcohol and Drug Abuse Patient Records regulations: The Federal rules restrict any use of the information to criminally investigate or prosecute any alcohol or drug abuse patient.[facility] the event this information is protected by the Federal Confidentiality of Alcohol and Drug Abuse Patient Records regulations: The Federal rules restrict any use of the information to criminally investigate or prosecute any alcohol or drug abuse patient.[facility] the event this information is protected by the Federal Confidentiality of Alcohol and Drug Abuse Patient Records regulations: The Federal rules restrict any use of the information to criminally investigate or prosecute any alcohol or drug abuse patient.[facility] the event this information is protected by the Federal Confidentiality of Alcohol and Drug Abuse Patient Records regulations: The Federal rules restrict any use of the information to criminally investigate or prosecute any alcohol or drug abuse patient.[facility] the event this information is protected by [...] or prosecute any alcohol or drug abuse patient.[facility] the event this information is protected by the Federal Confidentiality of Alcohol and Drug Abuse Patient Records regulations: The Federal rules restrict any use of the information to criminally investigate or prosecute any alcohol or drug abuse patient.[facility] the event this information is protected by the Federal Confidentiality of Alcohol and Drug Abuse Patient Records regulations: The Federal rules restrict any use of the information to criminally investigate or prosecute any alcohol or drug abuse patient.[facility] the event this information is protected by the Federal Confidentiality of Alcohol and Drug Abuse Patient Records regulations: The Federal rules restrict any use of the information to criminally investigate or prosecute any alcohol or drug abuse patient.[facility] the event this information is protected by the Federal Confidentiality of Alcohol and Drug Abuse Patient Records regulations: The Federal rules restrict any use of the information to criminally investigate or prosecute any alcohol or drug abuse patient.[facility] the event this information is protected by the Federal Confidentiality of Alcohol and Drug Abuse Patient Records regulations: The Federal rules restrict any use of the information to criminally investigate or prosecute any alcohol or drug abuse patient.[facility] the event this information is protected by the Federal Confidentiality of Alcohol and Drug Abuse Patient Records regulations: The Federal rules restrict any use of the information to criminally investigate or prosecute any alcohol or drug abuse patient.[facility] the event this information is protected by the Federal Confidentiality of Alcohol and Drug Abuse Patient Records regulations: The Federal rules restrict any use of the information to criminally investigate or prosecute any alcohol or drug abuse patient.[facility] the event this information is protected by the Federal Confidentiality of Alcohol and Drug Abuse Patient Records regulations: The Federal rules restrict any use of the information to criminally investigate or prosecute any alcohol or drug abuse patient.[facility] the event this information is protected by the Federal Confidentiality of Alcohol and Drug Abuse Patient Records regulations: The Federal rules restrict any use of the information to criminally investigate or prosecute any alcohol or drug abuse patient.[facility] the event this information is protected by the Federal Confidentiality of Alcohol and Drug Abuse Patient Records regulations: The Federal rules restrict any use of the information to criminally investigate or prosecute any alcohol or drug abuse patient.[facility] the event this information is protected by the Federal Confidentiality of Alcohol and Drug Abuse Patient Records regulations: The Federal rules restrict any use of the information to criminally investigate or prosecute any alcohol or drug abuse patient.[facility] the event this information is protected by the Federal Confidentiality of Alcohol and Drug Abuse Patient Records regulations: The Federal rules restrict any use of the information to criminally investigate or prosecute any alcohol or drug abuse patient.[facility] the event this information is protected by the Federal Confidentiality of Alcohol and Drug Abuse Patient Records regulations: The Federal rules restrict any use of the information to criminally investigate or prosecute any alcohol or drug abuse patient.[facility] the event this information is protected by the Federal Confidentiality of Alcohol and Drug Abuse Patient Records regulations: The Federal rules restrict any use of the information to criminally investigate or prosecute any alcohol or drug abuse patient.[facility] Reason for Visit (unrecogniz ed section and content) Reason Comments Radiology NM Specialty Diagnoses / Procedures Referred By Contac t Referred To Contact MOLECULAR & FUNCTIONAL IMAGING Diagnoses Examination of participant or control in clinical research Procedures NM PET/CT BRAIN PLAQUE IMAGING PET IMAGING CT FOR ATTENUATION LIMITED AREA Amilcar Bradford MD, MD, PhD [address] [place] [address] Molecular & Functional Imaging [address] [id number] Referral ID Status Reason Start Date Expiration Date V isits Requested Visits Authorized [id number] Closed Auto-Generate d Referral 09/15/2024 10/14/2025 1 [...] CONTRAST MATERIAL Amilcar Bradford MD, , PhD [address] [id number] [place] [id number] Referral ID Status Reason Start Date Expiration Date V isits Requested Visits Authorized [id number] Closed Auto-Generate d Referral 01/27/2024 02/24/2025 1 1 Reason Onset Date Comments Med Refill 07/22/2024 Reason Comments Returning Patient's Call Reason Onset Date Comments Cancelled Appointment 02/19/2023 Cancel and reschedule Reason Onset Date Comments Med Refill 01/24/2025 Reason Comments Radiology MRI Research brain Reason Comments Memory Loss Reason Comments Radiology MRI Scanned under resear number. Care Teams (unrecognized sec tion and content) Professor Of Genetics Relationship Specialty Start Date End Date Emi Cook APRN.SALES ENABLEMENT CONSULTANT [address] [facility] [address] [place] [address] PCP - General Family Practice 10/06/19 Professor Of Genetics Relationship Specialty Start Date End Date Emi Cook [address] [facility] [place] [address] PCP - General Nurse Practitioner 09/10/21 Professor Of Genetics Relationship Specialty Start Date End Date Emi Cook, PROBATION AND PATROL AGENT.SALES ENABLEMENT CONSULTANT [address] [facility] [address] [place] [phone] PCP - General Family Medicine 10/06/19 Team Status: Active Member Role Status Dates Emi Cook TELEPHONE SURVEYOR, TELEPHONE SURVEYOR-C Primary Care Provider Active Team Status: Inactive Member Role Status Dates Emi Cook TELEPHONE SURVEYOR, TELEPHONE SURVEYOR-C Primary Care Pr ovider, Attending Provider, Referring Provider Active Team Status: Inactive Member Role Status Dates Emi Cook TELEPHONE SURVEYOR, TELEPHONE SURVEYOR-C Primary Care Provider, Attend ing Provider Active Professor Of Genetics Relationship Specialty Start Date End Date Emi Cook, PROBATION AND PATROL AGENT.SALES ENABLEMENT CONSULTANT [address] [facility] [address] [place] [phone] PCP - General Family Medicine 10/06/19 Professor Of Genetics Relationship Specialty Start Date End Date Emi Cook, PROBATION AND PATROL AGENT.SALES ENABLEMENT CONSULTANT [address] [facility] [address] [place] [phone] PCP - General Family Medicine 10/06/19 Professor Of Genetics Relationship Specialty Start Date End Date Emi Cook PROBATION AND PATROL AGENT.SALES ENABLEMENT CONSULTANT [address] [phone] PCP - General Family Medicine 10/06/19 Professor Of Genetics Relationship Specialty Start Date End Date Emi Cook [address] [place] [address] PCP - General 09/10/21 Professor Of Genetics Relationship Specialty Start Date End Date Emi Cook [address] [place] [address] PCP - General 09/10/21 Professor Of Genetics Relationship Specialty Start Date End Date Emi Cook, PROBATION AND PATROL AGENT.SALES ENABLEMENT CONSULTANT [address] [facility] [address] [place] [phone] PCP - General Family Medicine 10/06/19 Professor Of Genetics Relationship Specialty Start Date End Date Emi Cook, PROBATION AND PATROL AGENT.SALES ENABLEMENT CONSULTANT [address] [place], [place] [phone] PCP - General Family Medicine 10/06/19 Professor Of Genetics Relationship Specialty Start Date End Date Emi Cook, PROBATION AND PATROL AGENT.SALES ENABLEMENT CONSULTANT [address] [place], [place] [phone] PCP - General Family Medicine 10/06/19 Professor Of Genetics Relationship Specialty Start Date End Date Emi Cook, PROBATION AND PATROL AGENT.SALES ENABLEMENT CONSULTANT [address] [place], [place] [phone] PCP - General Family Medicine 10/06/19 Professor Of Genetics Relationship Specialty Start Date End Date Cook, Dora [address] [place] [address] PCP - General 09/10/21 Professor Of Genetics Relationship Specialty Start Date End Date Emi Cook [address] [place] [address] PCP - General 09/10/21 Professor Of Genetics Relationship Specialty Start Date End Date Emi Cook [address] [place] [address] PCP - General Nurse Practitioner 01/25/24 Professor Of Genetics Relationship Specialty Start Date End Date Emi Cook, PROBATION AND PATROL AGENT.SALES ENABLEMENT CONSULTANT [address] [place], [place] [phone] PCP - General Family Medicine 10/06/19 Professor Of Genetics Relationship Specialty Start Date End Date Emi Cook [address] [place], [place] [phone] PCP - General Nurse Practitioner 01/25/24 Professor Of Genetics Relationship Specialty Start Date End Date Emi Cook, PROBATION AND PATROL AGENT.SALES ENABLEMENT CONSULTANT [address] [place], [place] [phone] PCP - General Family Medicine 10/06/19 Professor Of Genetics Relationship Specialty Start Date End Date Emi Cook [address] [place], [place] [phone] PCP - General Nurse Practitioner 01/25/24 Professor Of Genetics Relationship Specialty Start Date End Date Emi Cook, PROBATION AND PATROL AGENT.S[employer]ES ENABLEMENT CONSULTANT [address] [place] [phone] PCP - General Family Medicine 10/06/19 Professor Of Genetics Relationship Specialty Start Date End Date Emi Cook, PROBATION AND PATROL AGENT.SALES ENABLEMENT CONSULTANT [address] [place], [place] [id number] PCP - General Family Medicine 10/06/19 Professor Of Genetics Relationship Specialty Start Date End Date Celina Levy MD [facility] [place] [address] Physician Dermatology 05/09/23 Professor Of Genetics Relationship Specialty Start Date End Date Emi Cook [address] [address] PCP - General Nurse Practitioner 01/25/24 Professor Of Genetics Relationship Specialty Start Date End Date Emi Cook, PROBATION AND PATROL AGENT.SALES ENABLEMENT CONSULTANT [address] [place], [place] [phone] PCP - General Family Medicine 10/06/19 Professor Of Genetics Relationship Specialty Start Date End Date Emi Cook, PROBATION AND PATROL AGENT.SALES ENABLEMENT CONSULTANT [address] [place], [place] [phone] PCP - General Family Medicine 10/06/19 Professor Of Genetics Relationship Specialty Start Date End Date Emi Cook [address] [place], [place] [id number] PCP - General 09/10/21 Professor Of Genetics Relationship Specialty Start Date End Date Emi Cook [address] [place] [address] PCP - General Nurse Practitioner 01/25/24 Professor Of Genetics Relationship Specialty Start Date End Date Emi Cook, PROBATION AND PATROL AGENT.SALES ENABLEMENT CONSULTANT [address] [place] [phone] PCP - General Family Medicine 10/06/19 Professor Of Genetics Relationship Specialty Start Date End Date Emi Cook [address] [place] [address] PCP - General Nurse Practitioner 01/25/24 Professor Of Genetics Relationship Specialty Start Date End Date Emi Cook [address] [place] [address] PCP - General Nurse Practitioner 01/25/24 Professor Of Genetics Relationship Specialty Start Date End Date Celina Levy MD [address] [place] [address] Physician Dermatology 05/09/23 Goals (unrecognized [...] BE BASED ON THE PRIMARY CLINICAL RECORDS. [facility] [employer] [facility]. provides no warranty or guarantee of the accuracy or completeness of information in this document.
[2025-07-18 10:16] LABS: T4 Total, Thyroxin 6.3 ug/dL (4.8-13.9)
== END ==
LOC: OLS.SW 05:00
PROVIDERS: PCP Nurse Practitioner; Visit Provider Family Medicine
DX: I10 Essential (primary) hypertension (principal); E03.9 Hypothyroidism, unspecified; E78.5 Hyperlipidemia, unspecified; F03.90 Unspecified dementia, unspecified severity, without behavioral disturbance, psychotic disturbance, mood disturbance, and anxiety
CPT/HCPCS: 36415; 84436; 84443

== ENCOUNTER → 2025-08-08 | Outpatient (REF) | payer MEDICARE, SELFPAY ==
[2025-08-08 08:06] LABS: Hematocrit 45.0 % (37-47); Hemoglobin 15.2 g/dL (12.0-15.0); Mean Corp Hgb Conc 33.8 g/dL (32-36); Mean Corpuscular Volume 96.8 fL (81-99); Mean Platelet Vol. 10.2 fl (6.2-12.0); Platelet Count 219 K/mm3 (150-450); RBC Distribution Width CV 12.9 % (11.6-14.6); RBC Distribution Width SD 45.6 fl (35.1-43.9); Red Blood Count 4.65 M/mm3 (4.2-5.4); White Blood Count 7.6 K/mm3 (4.4-11.0)
[2025-08-08 08:12] LABS: AST(SGOT) 29 U/L (<=31); Alanine Aminotransfer ALT/SGPT 22 U/L (<=34); Albumin, Serum 4.2 g/dL (3.4-4.8); Alkaline Phosphatase 56 U/L (35-104); Bilirubin, Direct 0.19 mg/dL (0.00-0.30); Globulin 2.8 g/dL (2.2-4.2)
[2025-08-08 08:21] LABS: Valproic Acid (Depakene) Level 57 ug/mL (50-100)
== END ==
LOC: OLS.SW 05:00
PROVIDERS: PCP Nurse Practitioner; Visit Provider Family Medicine
DX: E11.9 Type 2 diabetes mellitus without complications (principal); F03.90 Unspecified dementia, unspecified severity, without behavioral disturbance, psychotic disturbance, mood disturbance, and anxiety; I10 Essential (primary) hypertension; E78.5 Hyperlipidemia, unspecified
CPT/HCPCS: 36415; 80076; 80164; 85027

== ENCOUNTER → 2025-08-19 18:48 | Outpatient (REF) | payer MEDICARE, SELFPAY ==
[2025-08-19 18:48] LABS: Red Blood Cells-Urine 0 SEEN /hpf (0-5)
[2025-08-19 18:53] LABS: Color, Urine Yellow (Yellow); Glucose, Dipstick Normal (Normal); Ketone-Dipstick 5 mg/dl (Negative); Leukocyte Esterase-Dipstick 500 /ul (Negative); Nitrite-Dipstick Negative (Negative); Occult Blood-Urine 25 /ul (Negative); Protein-Dipstick 30 mg/dl (Negative); Specific Gravity, Urine 1.010 (1.002-1.030); Urine Bilirubin Dipstick Negative (Negative)
[2025-08-19 19:14] LABS: Mucous, Urine 1+ /hpf (<or=2+); Squamous Epithelial Cells - UA 0-5 SEEN /hpf (5-10)
[2025-08-19 19:25] LABS: Transitional Epithelial - Ur 0-5 SEEN /hpf (0-5)
== END ==
LOC: OLS.SW 18:48
PROVIDERS: PCP Nurse Practitioner; Referring Provider Family Medicine; Visit Provider Family Medicine
DX: R30.0 Dysuria (principal)
CPT/HCPCS: 81001; 87086; 87088; 87186

== ENCOUNTER → 2025-08-31 08:00 | Outpatient (REF) | payer MEDICARE, SELFPAY ==
[2025-08-31 09:24] LABS: Hematocrit 44.6 % (37-47); Hemoglobin 15.2 g/dL (12.0-15.0); Mean Corp Hgb Conc 34.1 g/dL (32-36); Mean Corpuscular Volume 94.5 fL (81-99); Mean Platelet Vol. 10.0 fl (6.2-12.0); Platelet Count 205 K/mm3 (150-450); RBC Distribution Width CV 12.6 % (11.6-14.6); RBC Distribution Width SD 44.0 fl (35.1-43.9); Red Blood Count 4.72 M/mm3 (4.2-5.4); White Blood Count 7.4 K/mm3 (4.4-11.0)
[2025-08-31 09:40] LABS: Valproic Acid (Depakene) Level 50 ug/mL (50-100)
[2025-08-31 09:41] LABS: Ammonia 23.2 umol/L (11-51)
[2025-08-31 09:42] LABS: AST(SGOT) 34 U/L (<=31); Alanine Aminotransfer ALT/SGPT 27 U/L (<=34); Albumin, Serum 4.0 g/dL (3.4-4.8); Alkaline Phosphatase 53 U/L (35-104); Bilirubin, Direct 0.23 mg/dL (0.00-0.30); Globulin 2.8 g/dL (2.2-4.2)
== END ==
LOC: OLS.SW 08:00
PROVIDERS: PCP Nurse Practitioner; Visit Provider Family Medicine
DX: G30.1 Alzheimer's disease with late onset (principal); F32.A Depression, unspecified; I49.9 Cardiac arrhythmia, unspecified
CPT/HCPCS: 36415; 80076; 80164; 82140; 85027

== ENCOUNTER → 2025-09-08 19:21 | Outpatient (REF) | payer MEDICARE, SELFPAY ==
--- OUTSIDE RECORDS SUMMARY | 2025-09-08 19:26 | XMS RPT_ITS | CCD ---
Author Organization [facility] Care Team Providers Care Track [employer] Rep[employer] Supervisor Name Role Phone HAWK PERKINS, DR ROSEMARY Molina Primary Care Physician [phone] Joey OFFICE HELPER.Emi LOPEZ Primary Care Provide r Yoselyn Paez [...] Unavailable Cook, Emi Primary Care Provider Joey OFFICE HELPER.Emi LOPEZ Primary Care Provide r Ventura Cooka Primary Care Provider [phone] PROVIDER, UNKNOWN Attending Unavailable PROVIDER, UNKNOWN Admitting Unavailable PATIENT, SELF Referring Unavailable Unavailable Primary Care Provider Unavailabl e Cook, Emi Primary Care Provider Joey Emi Primary Care Provider Joey OFFICE HELPER.Emi LOPEZ Primary Care Provide r Mildred PERKINS, Celina Unavailable [phone] COOK, EMI L Primary Care Unavailable EDDIE NICK Admitting Unavailable NICK MORGAN Attending Unavailable SHAKILA WARE Attending Unavailable COOK, EMI L Primary Care Unavailable COOK, EMI L Primary Care Unavailable SHAKILA RUIZ Attending Unavailable AMILCAR BRADFORD Referring Unavailable COOK, [...] Unavailable COOK, EMI L Primary Care Unavailable Cook, Emi Primary Care Provider GUNJAN CASTILLO Attending Unavailable GUNJAN CASTILLO Referring Unavailable COOK, EMI Primary Care Unavailable GUNJAN CASTILLO Attending Unavailable COOK, EMI Primary Care Unavailable Cook BEVELING MACHINE OPERATOR, Emi Primary Care Unavailable Cook BEVELING MACHINE OPERATOR, Emi Attending Unavailable Cook BEVELING MACHINE OPERATOR, Emi Referring Unavailable Cook BEVELING MACHINE OPERATOR, Emi Primary Care Unavailable Josué Orr Attending Unavailable Cook BEVELING MACHINE OPERATOR, Emi Primary Care Unavailable Josué Orr Referring Unavailable Josué Orr Attending Unavailable Josué Orr Attending Unavailable Cook BEVELING MACHINE OPERATOR, Emi Primary Care Unavailable Josué Orr Attending Unavailable Cook BEVELING MACHINE OPERATOR, Emi Primary Care Unavailable Josué Orr Attending Unavailable Cook BEVELING MACHINE OPERATOR, Emi Primary Care Unavailable Josué Orr Attending Unavailable Josué Orr Referring Unavailable Cook BEVELING MACHINE OPERATOR, Emi Primary Care Unavailable Cook BEVELING MACHINE OPERATOR, Emi Primary Care Unavailable Josué Orr Attending Unavailable Allergies Allergy Classification Reported Allergen(s) Allergy Type Date of Onset Reaction(s) Facility (3 sources) cat dander; Translations: [cat dander] Allergy to substance 2 NEEDS FOLLOW-UP [facility] Medications Current Medications Medication Drug Class(es) Dates [...] 1 tablet by mouth once daily donepezil (Aricept) 10 MG tablet Take 1 tablet (10 mg) by mouth Nightly. 90 tablet 1 01/24/2025 Active Start: 11-19-2021 take 5 mg by mouth once daily Donepezil Active 5 MG PO DAILY November 19, 2021 1:00am Comment on above: TAKE 1 TABLET BY YINA TH NIGHTLY Folic Acid (13 sources) Folic Acid (OSBALDO TE PO) Take [...] hydrochloride 10 mg oral tablet (20 sources) U-glbimz-Z-aspartate Receptor Antagonist Start: 04-09-2023 memantine (NAMENDA) 10 MG tablet 04/09/2023 Active Start: 01-27-2023 take 1 tablet by yina th twice daily memantine (Namenda) 10 MG tablet Take 10 mg by mouth 2 times daily. 01/27/2023 Active 24 hr metoprolol succinate 25 mg extended release oral tablet (20 sources) beta-Adrenergic Toribio Start: 03-10-2019 End: 08-31-2023 take 1 tablet by mouth twice daily metoprolol succinate XL (Toprol-XL) 25 MG 24 hr tablet Take 25 mg by mouth 2 times daily. 01/27/2023 Active Start: 11-30-2015 metoprolol tar trate 25 mg oral tablet Dose : 25 mg = 1 tab(s), Oral, BID, 0 Refill(s) Start Date: 11/30/15 Status: Ordered Comment on above: Take 1 tablet by yina twice daily. multivit-min/ferrous fumarate (MULTI VITAMIN ORAL) [...] Refill(s) Start Date: 10/11/15 Status: Ordered pyridoxine (13 sources) Pyridoxine HCl (VITAMIN B-6 PO) Take by mouth. Active Pyridoxine HCl ( VITAMIN B-6 PO) Take by mouth. 0 Active QUEtiapine 50 mg oral tablet (18 sources) Atypical Antipsychotic End: 02-25-2024 QUEtiapine (SEROquel) [...] by mouth daily. 30 tablet 11 07/22/2024 Active Start: 01-27-2023 End: 02-26-2023 take 1 [...] 7:24pm zolpidem tartrate 10 mg oral tablet (12 sources) gamma-Aminobutyric Acid-ergic Agonist take 1 tablet [...] 1000 MG PO THREE TIMES A DAY 21 7 January 26, 2023 12:00am February 02, 2023 12:04am [...] elsewhere without behavioral disturbance] Onset: 2 Chronic Diabetes mellitus without complication (1 source) Type 2 diabetes mellitus without complications; Translations: [Type 2 diabetes mellitus without complications] Onset: 5 Chronic Disorders of lipid metabolism (20 sources) [...] [Hypokalemia] Onset: 9 Resolved: 9 10-13-2019 Episodic Genitourinary symptoms and ill-defined conditions (1 source) Dysuria; Translations: [Dysuria] Onset: 5 Episodic Mood disorders (20 sources) Depressive disorder; Translations: [Depression, unspecified depression type] Onset: 3 10-11-2015 Chronic Mood disorders (2 sources) Mood disorders; Translations: [Depression, unspecified] Onset: 2 Nutritional deficiencies (4 sources) Deficiency of other specified B group vitamins; Translations: [Cobalamin deficiency] Onset: 2 Episodic Other aftercare (2 sources) Other puttier (current) drug therapy; Translations: [Other [place] [facility] (current) drug therapy] Onset: 5 Episodic Other [...] and behavioral disorders] 10-22-2023 Episodic Thyroid disorders (2 sources) Hypothyroidism, unspecified; Translations: [Hypothyroidism, unspecified] Onset: 5 Chronic Viral infection (1 source) COVID-19; Translations: [COVID-19] [...] Translations: [Dorsalgia, unspecified] Onset: 01-03-2024 01-03-2024 Episodic Viral infection (20 sources) Herpes zoster; Translations: [Zoster without complications] Onset: 02-26-2023 01-27-2023 Episodic Results Test Name Value Interpretation Reference Range Facility Ammoniaon 08-31-2025 Ammonia (P) [Moles/Vol] 23.2 umol/L Normal 11-51 [facility] Comment on above: Performed By: #### L 400.0001, .2199 #### [facility] [address] [place], [address] CBC-Complete Blood Cnt No Di ffon 08-31-2025 Erythrocyte distribution width (RBC) [Ratio] 12.6 % Normal 11.6-14.6 [facility] Comment on above: Performed By: #### L 400.0001, #### [facility] [address] [place], [address] Hematocrit (Bld) [Volume fraction] 44.6 % Normal 37-47 [facility] Comment on above: Performed By: #### L 400.0001, #### [facility] [address] [place], [address] Hemoglobin (Bld) [Mass/Vol] 15.2 g/dL High 12.0-15.0 [facility] Comment on above: Performed By: #### L 400.0001, .0 #### [facility] [address] [place], [address] MCH (RBC) [Entitic mass] 32.2 pg High 27.0-32.0 [facility] Comment on above: Performed By: #### L 400.0001, .2199 #### [facility] [address] [place], [address] MCHC (RBC) [Mass/Vol] 34.1 g/dL Normal 32-36 [facility] Comment on above: Performed By: #### L 400.0001, .2199 #### [facility] [address] [place], [address] MCV (RBC) [Entitic vol] 94.5 fL Normal 81-99 [facility] Comment on above: Performed By: #### L 400.0001, #### [facility] [address] [place], [address] Platelet mean volume (Bld) [Entitic vol] 10.0 fL Normal 6.2-12.0 [facility] Comment on above: Performed By: #### L 400.0001, #### [facility] [address] [place], [address] Platelets (Bld) [#/Vol] 205 10*3/uL Normal 150-450 [facility] Comment on above: Performed By: #### L 400.0001, #### [facility] [address] [place], [address] RBC (Bld) [#/Vol] 4.72 10*6/uL Normal 4.2-5.4 [facility] Comment on above: Performed By: #### L 400.0001, #### [facility] [address] [place], [address] RDW SD 44.0 fl High 35.1-43.9 [facility] Comment on above: Performed By: #### L 400.0001, #### [facility] [address] [place], [address] WBC (Bld) [#/Vol] 7.4 10*3/uL Normal 4.4-11.0 [facility] Comment on above: Performed By: #### L 400.0001, #### [facility] [address] [place], [address] Liver Profileon 08-31-2025 Albumin [Mass/Vol] 4.0 g/dL Normal 3.4-4.8 [facility] Comment on above: Performed By: #### L 400.0001, #### [facility] [address] [place], [address] ALK PHOS 53 U/L Normal 35-104 [facility] Comment on above: Performed By: #### L 400.0001, #### [facility] [address] [place], [address] ALT [Catalytic activity/Vol] 27 U/L Normal <=34 [facility] Comment on above: Performed By: #### L 400.0001, #### [facility] [address] [place], [address] AST [Catalytic activity/Vol] 34 U/L High <=31 [facility] Comment on above: Performed By: #### L 400.0001, #### [facility] [address] [place], [address] Bilirubin [Mass/Vol] 0.61 mg/dL Normal 0.00-1.30 [facility] Comment on above: Performed By: #### L 400.0001, #### [facility] [address] [place], [address] Bilirubin.direct [Mass/Vol] 0.23 mg/dL Normal 0.00-0.30 [facility] Comment on above: Performed By: #### L 400.0001, #### [facility] [address] [place], [address] Globulin (S) [Mass/Vol] 2.8 g/dL Normal 2.2-4.2 [facility] Comment on above: Performed By: #### L 400.0001, #### [facility] [address] [place], [address] T PROT 6.9 g/dL Normal 5.9-8.4 [facility] Comment on above: Performed By: #### L 400.0001, #### [facility] [address] [place], [place], [id number] Valproic Acid (Depakene) Lev ene 08-31-2025 VALPROIC ACID 50 ug/mL Normal 50-100 [facility] Comment on above: Result Comment: Valp roic Acid concentrations >100 ug/mL are potentially toxic. Performed By: #### L 400.0001, #### [facility] [address] [place], [place], [id number] 36on 08-29-2025 36 Noted Thank you [facility] 36 Cancelled. [facility] 36 Name of caller: Elizabeth Contact phone number: [phone] Relationship to Patient: daughter Provider: Jonathan Practice: [facility] Chief Complaint/Reason for Call: Elizabeth called to cancel pt appt on 08/31/25, she is in [facility]. Best time of day caller can be reached: any Patient advised that office/PCP has 24-48 business hours to return their call: N/A Normal [facility] Urine Cultureon 08-21-2025 [facility] Presumptive E. coli [place] Count >100,000 Presumptive E. coli: REACTION Ampicillin Islt RITCHIE >=32 Ampicillin+Sulbac Islt RITCHIE 16 I Cefepime Islt RITCHIE <=0.12 S cefTRIAXone Islt RITCHIE <=0.25 S Ciprofloxacin Islt RITCHIE <=0.06 S B-Lactamase Extended Susc Islt NEG Gentamicin Islt RITCHIE <=1 S levoFLOXacin Islt RITCHIE <=0.12 S Meropenem Islt RITCHIE <=0.25 S Nitrofurantoin Islt RITCHIE <=16 S Pip+Tazo Islt RITCHIE <=4 S TMP SMX Islt RITCHIE <=20 S Normal [facility] Comment on above: Performed By: #### L 400.0001, #### [facility] [address] [place], [address] Urinalysis, Completeon 08-19 EPI,TRANSITION 0-5 SEEN Normal 0-5 [facility] Comment on above: Order Comment: CLEAN CATCH Performed By: #### L 400.0001, M100.2200 #### [facility] [address] [place], [address] BACTERIA 2+ /hpf Normal None Seen [facility] Comment on above: Order Comment: CLEAN CATCH Performed By: #### L 400.0001, M100.2200 #### [facility] [address] [place], [address] EPI,SQUAMOUS 0-5 SEEN Normal 5-10 [facility] Comment on above: Order Comment: CLEAN CATCH Performed By: #### L 400.0001, M100.2200 #### [facility] [address] [place], [address] Mucus Ql (Urine sed) 1+ /hpf Normal [facility] Comment on above: Order Comment: CLEAN CATCH Performed By: #### L 400.0001, M100.2200 #### [facility] [address] [place], [address] WBC 25-50 SEEN Normal 0-5 [facility] Comment on above: Order Comment: CLEAN CATCH Performed By: #### L 400.0001, M100.2200 #### [facility] [address] [place], [address] RBC 0 SEEN Normal 0-5 [facility] Comment on above: Order Comment: CLEAN CATCH Performed By: #### L 400.0001, M100.2200 #### [facility] [address] [place], [address] CBC-Complete Blood Cnt No Di ffon 08-08-2025 Erythrocyte distribution width (RBC) [Ratio] 12.9 % Normal 11.6-14.6 [facility] Comment on above: Order Comment: 410.2 Performed By: #### L 400.0001, #### [facility] [address] [place], [address] Hematocrit (Bld) [Volume fraction] 45.0 % Normal 37-47 [facility] Comment on above: Order Comment: 410.2 Performed By: #### L 400.0001, #### [facility] [address] [place], [address] Hemoglobin (Bld) [Mass/Vol] 15.2 g/dL High 12.0-15.0 [facility] Comment on above: Order Comment: 410.2 Performed By: #### L 400.0001, #### [facility] [address] [place], [address] MCH (RBC) [Entitic mass] 32.7 pg High 27.0-32.0 [facility] Comment on above: Order Comment: 410.2 Performed By: #### L 400.0001, #### [facility] [address] [place], [address] MCHC (RBC) [Mass/Vol] 33.8 g/dL Normal 32-36 [facility] Comment on above: Order Comment: 410.2 Performed By: #### L 400.0001, #### [facility] [address] [place], [address] MCV (RBC) [Entitic vol] 96.8 fL Normal 81-99 [facility] Comment on above: Order Comment: 410.2 Performed By: #### L 400.0001, #### [facility] [address] [place], [address] Platelet mean volume (Bld) [Entitic vol] 10.2 fL Normal 6.2-12.0 [facility] Comment on above: Order Comment: 410.2 Performed By: #### L 400.0001, #### [facility] [address] [place], [address] Platelets (Bld) [#/Vol] 219 10*3/uL Normal 150-450 [facility] Comment on above: Order Comment: 410.2 Performed By: #### L 400.0001, #### [facility] [address] [place], [address] RBC (Bld) [#/Vol] 4.65 10*6/uL Normal 4.2-5.4 [facility] Comment on above: Order Comment: 410.2 Performed By: #### L 400.0001, #### [facility] [address] [place], [address] RDW SD 45.6 fl High 35.1-43.9 [facility] Comment on above: Order Comment: 410.2 Performed By: #### L 400.0001, #### [facility] [address] [place], [address] WBC (Bld) [#/Vol] 7.6 10*3/uL Normal 4.4-11.0 [facility] Comment on above: Order Comment: 410.2 Performed By: #### L 400.0001, #### [facility] [address] [place], [address] Liver Profileon 08-08-2025 Albumin [Mass/Vol] 4.2 g/dL Normal 3.4-4.8 [facility] Comment on above: Order Comment: 410.2 Performed By: #### L 400.0001, #### [facility] [address] [place], [address] ALK PHOS 56 U/L Normal 35-104 [facility] Comment on above: Order Comment: 410.2 Performed By: #### L 400.0001, #### [facility] [address] [place], [address] ALT [Catalytic activity/Vol] 22 U/L Normal <=34 [facility] Comment on above: Order Comment: 410.2 Performed By: #### L 400.0001, #### [facility] [address] [place], [address] AST [Catalytic activity/Vol] 29 U/L Normal <=31 [facility] Comment on above: Order Comment: 410.2 Performed By: #### L 400.0001, #### [facility] [address] [place], [address] Bilirubin [Mass/Vol] 0.48 mg/dL Normal 0.00-1.30 [facility] Comment on above: Order Comment: 410.2 Performed By: #### L 400.0001, #### [facility] [address] [place], [address] Bilirubin.direct [Mass/Vol] 0.19 mg/dL Normal 0.00-0.30 [facility] Comment on above: Order Comment: 410.2 Performed By: #### L 400.0001, #### [facility] [address] [place], [address] Globulin (S) [Mass/Vol] 2.8 g/dL Normal 2.2-4.2 [facility] Comment on above: Order Comment: 410.2 Performed By: #### L 400.0001, #### [facility] [address] [place], [address] T PROT 7.0 g/dL Normal 5.9-8.4 [facility] Comment on above: Order Comment: 410.2 Performed By: #### L 400.0001, .0 #### [facility] [address] [place], [address] Valproic Acid (Depakene) Lev ene 08-08-2025 VALPROIC ACID 57 ug/mL Normal 50-100 [facility] Comment on above: Order Comment: 410.2 Result Comment: Valp roic Acid concentrations >100 ug/mL are potentially toxic. Performed By: #### L 400.0001, M100.0 #### [facility] [address] [place], [address] T4 Total, Thyroxinon 025 T4 [Mass/Vol] 6.3 ug/dL Normal 4.8-13.9 [facility] Comment on above: Order Comment: 410.2 Performed By: #### L 501.9310, L501.9520 #### [facility] [address] [place], [address] Thyroid Stim Hormone (TSH)on 07-18-2025 TSH 2.160 uIU/mL Normal 0.300-4.200 [facility] Comment on above: Order Comment: 410.2 Performed By: #### L 501.9310, L501.9520 #### [facility] [address] [place], [address] Ammoniaon 06-01-2025 Ammonia (P) [Moles/Vol] 21.1 umol/L Normal 11-51 [facility] Comment on above: Order Comment: 410.2 Performed By: #### L 400.0001, M100.2200 #### [facility] [address] [place], [address] CBC-Complete Blood Cnt No Di ffon 06-01-2025 Erythrocyte distribution width (RBC) [Ratio] 13.9 % Normal 11.6-14.6 [facility] Comment on above: Order Comment: 402-1 Performed By: #### L 501.9310, L501.9520, L100.0500, L501.9985, L500.4050, L500.4100 #### [facility] [address] [place], [address] Hematocrit (Bld) [Volume fraction] 41.3 % Normal 37-47 [facility] Comment on above: Order Comment: 402-1 Performed By: #### L 501.9310, L501.9520, L100.0500, L501.9985, L500.4050, L500.4100 #### [facility] [address] [place], [address] Hemoglobin (Bld) [Mass/Vol] 13.7 g/dL Normal 12.0-15.0 [facility] Comment on above: Order Comment: 402-1 Performed By: #### L 501.9310, L501.9520, L100.0500, L501.9985, L500.4050, L500.4100 #### [facility] [address] [place], [address] MCH (RBC) [Entitic mass] 31.6 pg Normal 27.0-32.0 [facility] Comment on above: Order Comment: 402-1 Performed By: #### L 501.9310, L501.9520, L100.0500, L501.9985, L500.4050, L500.4100 #### [facility] [address] [place], [address] MCHC (RBC) [Mass/Vol] 33.2 g/dL Normal 32-36 [facility] Comment on above: Order Comment: 402-1 Performed By: #### L 501.9310, L501.9520, L100.0500, L501.9985, L500.4050, L500.4100 #### [facility] [address] [place], [address] MCV (RBC) [Entitic vol] 95.2 fL Normal 81-99 [facility] Comment on above: Order Comment: 402-1 Performed By: #### L 501.9310, L501.9520, L100.0500, L501.9985, L500.4050, L500.4100 #### [facility] [address] [place], [address] Platelet mean volume (Bld) [Entitic vol] 9.8 fL Normal 6.2-12.0 [facility] Comment on above: Order Comment: 402-1 Performed By: #### L 501.9310, L501.9520, L100.0500, L501.9985, L500.4050, L500.4100 #### [facility] [address] [place], [address] Platelets (Bld) [#/Vol] 215 10*3/uL Normal 150-450 [facility] Comment on above: Order Comment: 402-1 Performed By: #### L 501.9310, L501.9520, L100.0500, L501.9985, L500.4050, L500.4100 #### [facility] [address] [place], [address] RBC (Bld) [#/Vol] 4.34 10*6/uL Normal 4.2-5.4 [facility] Comment on above: Order Comment: 402-1 Performed By: #### L 501.9310, L501.9520, L100.0500, L501.9985, L500.4050, L500.4100 #### [facility] [address] [place], [address] RDW SD 49.1 fl High 35.1-43.9 [facility] Comment on above: Order Comment: 402-1 Performed By: #### L 501.9310, L501.9520, L100.0500, L501.9985, L500.4050, L500.4100 #### [facility] [address] [place], [address] WBC (Bld) [#/Vol] 6.6 10*3/uL Normal 4.4-11.0 [facility] Comment on above: Order Comment: 402-1 Performed By: #### L 501.9310, L501.9520, L100.0500, L501.9985, L500.4050, L500.4100 #### [facility] [address] [place], [address] Liver Profileon 06-01-2025 Albumin [Mass/Vol] 3.9 g/dL Normal 3.4-4.8 [facility] Comment on above: Order Comment: 402-1 Performed By: #### L 501.9310, L501.9520, L100.0500, L501.9985, L500.4050, L500.4100 #### [facility] [address] [place], [address] ALK PHOS 69 U/L Normal 35-104 [facility] Comment on above: Order Comment: 402-1 Performed By: #### L 501.9310, L501.9520, L100.0500, L501.9985, L500.4050, L500.4100 #### [facility] [address] [place], [address] ALT [Catalytic activity/Vol] 13 U/L Normal <=34 [facility] Comment on above: Order Comment: 402-1 Performed By: #### L 501.9310, L501.9520, L100.0500, L501.9985, L500.4050, L500.4100 #### [facility] [address] [place], [address] AST [Catalytic activity/Vol] 22 U/L Normal <=31 [facility] Comment on above: Order Comment: 402-1 Performed By: #### L 501.9310, L501.9520, L100.0500, L501.9985, L500.4050, L500.4100 #### [facility] [address] [place], [address] Bilirubin [Mass/Vol] 0.34 mg/dL Normal 0.00-1.30 [facility] Comment on above: Order Comment: 402-1 Performed By: #### L 501.9310, L501.9520, L100.0500, L501.9985, L500.4050, L500.4100 #### [facility] [address] [place], [address] Bilirubin.direct [Mass/Vol] 0.12 mg/dL Normal 0.00-0.30 [facility] Comment on above: Order Comment: 402-1 Performed By: #### L 501.9310, L501.9520, L100.0500, L501.9985, L500.4050, L500.4100 #### [facility] [address] [place], [address] Globulin (S) [Mass/Vol] 3.1 g/dL Normal 2.2-4.2 [facility] Comment on above: Order Comment: 402-1 Performed By: #### L 501.9310, L501.9520, L100.0500, L501.9985, L500.4050, L500.4100 #### [facility] [address] [place], [address] T PROT 7.0 g/dL Normal 5.9-8.4 [facility] Comment on above: Order Comment: 402-1 Performed By: #### L 501.9310, L501.9520, L100.0500, L501.9985, L500.4050, L500.4100 #### [facility] [address] [place], [address] Valproic Acid (Depakene) Lev ene 06-01-2025 VALPROIC ACID 40 ug/mL Low 50-100 [facility] Comment on above: Order Comment: 402-1 Result Comment: Valp roic Acid concentrations >100 ug/mL are potentially toxic. Performed By: #### L 501.9310, L501.9520, L100.0500, L501.9985, L500.4050, L500.4100 #### [facility] [address] [place], [address] T4 Total, Thyroxinon 025 T4 [Mass/Vol] 5.3 ug/dL Normal 4.8-13.9 [facility] Comment on above: Order Comment: 410.2 Performed By: #### L 400.0001, M100.2200 #### [facility] [address] [place], [address] Thyroid Stim Hormone (TSH)on 05-30-2025 TSH 4.480 uIU/mL High 0.300-4.200 [facility] Comment on above: Order Comment: 410.2 Performed By: #### L 400.0001, M100.2200 #### [facility] [address] [place], [address] CBC-Complete Blood Cnt No Di ffon 03-10-2025 Erythrocyte distribution width (RBC) [Ratio] 12.8 % Normal 11.6-14.6 [facility] Comment on above: Order Comment: 402-1 Performed By: #### L 501.9310, L501.9520, L100.0500, L501.9985, L500.4050, L500.4100 #### [facility] [address] [place], [address] Hematocrit (Bld) [Volume fraction] 39.0 % Normal 37-47 [facility] Comment on above: Order Comment: 402-1 Performed By: #### L 501.9310, L501.9520, L100.0500, L501.9985, L500.4050, L500.4100 #### [facility] [address] [place], [address] Hemoglobin (Bld) [Mass/Vol] 13.2 g/dL Normal 12.0-15.0 [facility] Comment on above: Order Comment: 402-1 Performed By: #### L 501.9310, L501.9520, L100.0500, L501.9985, L500.4050, L500.4100 #### [facility] [address] [place], [address] MCH (RBC) [Entitic mass] 31.0 pg Normal 27.0-32.0 [facility] Comment on above: Order Comment: 402-1 Performed By: #### L 501.9310, L501.9520, L100.0500, L501.9985, L500.4050, L500.4100 #### [facility] [address] [place], [address] MCHC (RBC) [Mass/Vol] 33.8 g/dL Normal 32-36 [facility] Comment on above: Order Comment: 402-1 Performed By: #### L 501.9310, L501.9520, L100.0500, L501.9985, L500.4050, L500.4100 #### [facility] [address] [place], [address] MCV (RBC) [Entitic vol] 91.5 fL Normal 81-99 [facility] Comment on above: Order Comment: 402-1 Performed By: #### L 501.9310, L501.9520, L100.0500, L501.9985, L500.4050, L500.4100 #### [facility] [address] [place], [address] Platelet mean volume (Bld) [Entitic vol] 9.6 fL Normal 6.2-12.0 [facility] Comment on above: Order Comment: 402-1 Performed By: #### L 501.9310, L501.9520, L100.0500, L501.9985, L500.4050, L500.4100 #### [facility] [address] [place], [address] Platelets (Bld) [#/Vol] 291 10*3/uL Normal 150-450 [facility] Comment on above: Order Comment: 402-1 Performed By: #### L 501.9310, L501.9520, L100.0500, L501.9985, L500.4050, L500.4100 #### [facility] [address] [place], [address] RBC (Bld) [#/Vol] 4.26 10*6/uL Normal 4.2-5.4 [facility] Comment on above: Order Comment: 402-1 Performed By: #### L 501.9310, L501.9520, L100.0500, L501.9985, L500.4050, L500.4100 #### [facility] [address] [place], [address] RDW SD 42.4 fl Normal 35.1-43.9 [facility] Comment on above: Order Comment: 402-1 Performed By: #### L 501.9310, L501.9520, L100.0500, L501.9985, L500.4050, L500.4100 #### [facility] [address] [place], [address] WBC (Bld) [#/Vol] 8.2 10*3/uL Normal 4.4-11.0 [facility] Comment on above: Order Comment: 402-1 Performed By: #### L 501.9310, L501.9520, L100.0500, L501.9985, L500.4050, L500.4100 #### [facility] [address] [place], [address] Comprehensive Metabolic Prof mson 03-10-2025 Albumin [Mass/Vol] 4.1 g/dL Normal 3.4-4.8 [facility] Comment on above: Order Comment: 402-1 Performed By: #### L 501.9310, L501.9520, L100.0500, L501.9985, L500.4050, L500.4100 #### [facility] [address] [place], [address] Albumin/Globulin [Mass ratio] 1.4 {ratio} Normal 0.9-2.4 [facility] Comment on above: Order Comment: 402-1 Performed By: #### L 501.9310, L501.9520, L100.0500, L501.9985, L500.4050, L500.4100 #### [facility] [address] [place], [place], [address] [phone] PHOS 73 U/L Normal 35-104 [facility] Comment on above: Order Comment: 402-1 Performed By: #### L 501.9310, L501.9520, L100.0500, L501.9985, L500.4050, L500.4100 #### [facility] [address] [place], [address] ALT [Catalytic activity/Vol] 14 U/L Normal <=34 [facility] Comment on above: Order Comment: 402-1 Performed By: #### L 501.9310, L501.9520, L100.0500, L501.9985, L500.4050, L500.4100 #### [facility] [address] [place], [address] AST [Catalytic activity/Vol] 21 U/L Normal <=31 [facility] Comment on above: Order Comment: 402-1 Performed By: #### L 501.9310, L501.9520, L100.0500, L501.9985, L500.4050, L500.4100 #### [facility] [address] [place], [address] Bilirubin [Mass/Vol] 0.26 mg/dL Normal 0.00-1.30 [facility] Comment on above: Order Comment: 402-1 Performed By: #### L 501.9310, L501.9520, L100.0500, L501.9985, L500.4050, L500.4100 #### [facility] [address] [place], [address] BUN/CRE 16.2 RATIO Normal 10-20 [facility] Comment on above: Order Comment: 402-1 Performed By: #### L 501.9310, L501.9520, L100.0500, L501.9985, L500.4050, L500.4100 #### [facility] [address] [place], [address] Calcium [Mass/Vol] 9.6 mg/dL Normal 7.6-11.0 [facility] Comment on above: Order Comment: 402-1 Performed By: #### L 501.9310, L501.9520, L100.0500, L501.9985, L500.4050, L500.4100 #### [facility] [address] [place], [address] Chloride [Moles/Vol] 107 mmol/L Normal 98-108 [facility] Comment on above: Order Comment: 402-1 Performed By: #### L 501.9310, L501.9520, L100.0500, L501.9985, L500.4050, L500.4100 #### [facility] [address] [place], [address] CO2 [Moles/Vol] 24.8 mmol/L Normal 21.0-32.0 [facility] Comment on above: Order Comment: 402-1 Performed By: #### L 501.9310, L501.9520, L100.0500, L501.9985, L500.4050, L500.4100 #### [facility] [address] [place], [address] Creatinine [Mass/Vol] 0.82 mg/dL Normal 0.70-1.20 [facility] Comment on above: Order Comment: 402-1 Performed By: #### L 501.9310, L501.9520, L100.0500, L501.9985, L500.4050, L500.4100 #### [facility] [address] [place], [address] GAP 11 Normal 5-15 [facility] Comment on above: Order Comment: 402-1 Performed By: #### L 501.9310, L501.9520, L100.0500, L501.9985, L500.4050, L500.4100 #### [facility] [address] [place], [address] GFR/1.73 sq M.predicted among non-blacks MDRD (S/P/Bld) [Vol rate/Area] 74 mL/min/{1.73_m2} Normal >60 [facility] Comment on above: Order Comment: 402-1 Result Comment: mL/m in/1.73m2 CKD-EPI Creatinine Equation (2020) Performed By: #### L 501.9310, L501.9520, L100.0500, L501.9985, L500.4050, L500.4100 #### [facility] [address] [place], [address] Globulin (S) [Mass/Vol] 3.0 g/dL Normal 2.2-4.2 [facility] Comment on above: Order Comment: 402-1 Performed By: #### L 501.9310, L501.9520, L100.0500, L501.9985, L500.4050, L500.4100 #### [facility] [address] [place], [address] Glucose [Mass/Vol] 102 mg/dL High 70-99 [facility] Comment on above: Order Comment: 402-1 Performed By: #### L 501.9310, L501.9520, L100.0500, L501.9985, L500.4050, L500.4100 #### [facility] [address] [place], [address] Potassium [Moles/Vol] 4.1 mmol/L Normal 3.3-5.1 [facility] Comment on above: Order Comment: 402-1 Performed By: #### L 501.9310, L501.9520, L100.0500, L501.9985, L500.4050, L500.4100 #### [facility] [address] [place], [address] Sodium [Moles/Vol] 143 mmol/L Normal 133-145 [facility] Comment on above: Order Comment: 402-1 Performed By: #### L 501.9310, L501.9520, L100.0500, L501.9985, L500.4050, L500.4100 #### [facility] [address] [place], [address] T PROT 7.2 g/dL Normal 5.9-8.4 [facility] Comment on above: Order Comment: 402-1 Performed By: #### L 501.9310, L501.9520, L100.0500, L501.9985, L500.4050, L500.4100 #### [facility] [address] [place], [address] Urea nitrogen [Mass/Vol] 13 mg/dL Normal 4-19 [facility] Comment on above: Order Comment: 402-1 Performed By: #### L 501.9310, L501.9520, L100.0500, L501.9985, L500.4050, L500.4100 #### [facility] [address] [place], [address] Hemoglobin A1con 03-10-2025 HbA1c (Bld) [Mass fraction] 5.7 % Normal <=5.6 [facility] Comment on above: Order Comment: 402-1 Result Comment: Norm al < 5.7 % Prediabetic 5.7 - 6.4 % Diabetic >or= 6.5 % Please note range changes. Performed By: #### L 501.9310, L501.9520, L100.0500, L501.9985, L500.4050, L500.4100 #### [facility] [address], [address] Lipid Profileon 03-10-2025 CHOL:HDL 3.43 Normal [facility] Comment on above: Order Comment: 402 Performed By: #### L 501.9310, L501.9520, L100.0500, L501.9985, L500.4050, L500.4100 #### [facility] [address] [place], [address] Cholesterol [Mass/Vol] 214 mg/dL High <=200 [facility] Comment on above: Order Comment: 402-1 Result Comment: Chol esterol level, Desirable <200 mg/dL Borderline high cholesterol 200-239 mg/dL High cholesterol >=240 mg/dL Recommendations of the NCEP Adult Treatment Panel for the following risk-cutoff thresholds for the [place] population. Performed By: #### L 501.9310, L501.9520, L100.0500, L501.9985, L500.4050, L500.4100 #### [facility] [address] [place], [address] Cholesterol in HDL [Mass/Vol] 62 mg/dL Normal [facility] Comment on above: Order Comment: 402-1 Result Comment: María onal Cholesterol Education Program (NCEP) guidelines: <40 mg/dL: Low HDL-cholesterol (major risk factor for CHD) >= 60 mg/dL: High HDL-cholesterol (negative risk factor for CHD) HDL-cholesterol is affected by a number of factors, e.g. smoking, exercise, hormones, sex and age. Performed By: #### L 501.9310, L501.9520, L100.0500, L501.9985, L500.4050, L500.4100 #### [facility] [address] [place], [address] Cholesterol in LDL [Mass/Vol] 136 mg/dL Normal [facility] Comment on above: Order Comment: 402-1 Result Comment: Bord vksbai=292-059 mg/dL Higher Nury=308 mg/dL or greater Performed By: #### L 501.9310, L501.9520, L100.0500, L501.9985, L500.4050, L500.4100 #### [facility] [address] [place], [address] Cholesterol in VLDL [Mass/Vol] 16 mg/dL Normal 5-40 [facility] Comment on above: Order Comment: 402-1 Performed By: #### L 501.9310, L501.9520, L100.0500, L501.9985, L500.4050, L500.4100 #### [facility] [address] [place], [address] Triglyceride [Mass/Vol] 78 mg/dL Normal [facility] Comment on above: Order Comment: 402-1 Result Comment: The drugs N-Acetylcysteine and Metamizole may falsely depress this assay. Normal range: <150 mg/dL Borderline High: 150-199 mg/dL High: 200-499 mg/dL Very High: >500 mg/dL Performed By: #### L 501.9310, L501.9520, L100.0500, L501.9985, L500.4050, L500.4100 #### [facility] [address] [place], [address] T4 Total, Thyroxinon 05-02-2 025 T4 [Mass/Vol] 5.1 ug/dL Normal 4.8-13.9 [facility] Comment on above: Order Comment: 402-1 Performed By: #### L 501.9310, L501.9520, L100.0500, L501.9985, L500.4050, L500.4100 #### [facility] [address] [place], [place], [address] Thyroid Stim Hormone (TSH)on 03-10-2025 TSH 4.260 uIU/mL High 0.300-4.200 [facility] Comment on above: Order Comment: 402-1 Performed By: #### L 501.9310, L501.9520, L100.0500, L501.9985, L500.4050, L500.4100 #### [facility] [address] [place], [place], [address] ECG 12 leadOrdered By: Fabricio Moctezuma on 02-24-2025 Heart rate 63 /min bpm [employer] Work Phone: P [place] 39 degrees [employer] Work Phone: ID Interval 158 ms [employer] Work Phone: QRS [place] -15 degrees [employer] Work Phone: QRSD Interval 68 ms [employer] Work Phone: QT Interval 396 ms [employer] [facility] Work Phone: QTC Interval 405 ms [employer] Work Phone: T Wave [place] 25 degrees [employer] Work Phone: [employer] Work Phone: ECG 12 leadon 02-24-2025 Fabricio Moctezuma MD - 02/24/2025 IMPRESSION: Sinus rhythm Ventricular premature complex Abnormal R-wave progression, early transition No previous ECG available for comparison Electronically Signed On 02-24-2025 10:47:30 EDT by Fabricio [facility]ctezuma [facility] 36on 02-23-2025 36 Requested papers wer e signed by Dr Castillo and faxed to [phone]. [facility] 36 Thanks! Patient will be moving into [facility]. 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 Once I sign the note/letter, then this can be faxed to [facility]. Thanks! Normal [facility] 36 I spoke to Elizabeth and she said it was recently changed to: 25 mg at 10:00 am, 25 mg at 2:00 pm, 50 mg at 5:00 pm and 50 mg at 8:00 pm [facility] 36 Can you call and confirm the quetiapine (Seroquel) dosing with daughter Elizabeth? We have the dose as 50 mg at lunch, 50 mg at 4 pm, and 100 mg at 8 pm. I want to make sure it is correct on the [place] [facility] Office Visiton 02-23-2025 Follow-up visit [id number] Manas Vital 1945 F Date Provider Department Center 02/23/2025 [id number] CASTILLO [facility] CS None Family History Problem Relation Age of Onset Dementia Maternal Grandmother Family Status - Relation Status Age at Maternal Grandmother Level of Service:72154 ID OFFICE/OUTPATIENT ESTABLISHED HIGH MDM 40 MIN Reason for Visit and Comments: Memory Loss [66] Normal [facility] Progress Noteon 02-23-2025 Progress Note [facility] [place] [address] Dept: [phone] Dept Loc: [phone] Visit type: [facility] Follow Up Visit Reason for Visit: Memory [...] -Plan is for patient to move into [facility] memory care unit. 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 The patient is [...] moving into a memory care unit at [facility]. Will do the H and P [...] "wants to escape"). 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 -Sleep: Better now. -Appetite: Still eats well. [...] See administration (more content not included)... [facility] Progress Note Review of Systems Constitutional: [...] for hallucinations. The patient is nervous/anxious. 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 Activities: watches tv, spends time with cat >>02/17/22 just went on vacation, walks in [place], plays cards, plays piano, visiting friends >>08/22/22 outside, TV, cat sits out with neighbor, nondenominational, >>02/26/23 walks, visits with neighbors, nondenominational, kids' sports games, just came back from vacation >>10/22/23 same >>02/25/24 visits with aide, getting to physical therapy, going on walks >>08/25/24 visits with aides, goes to [facility], goes to [facility] >>02/23/25 same Exercise: walks around her house >>02/17/22 walking, weights >>08/22/22 walks around the condo or in her neighborhood >>02/26/23 walks >>10/22/23 walks >>02/25/24 walks, physical therapy >>08/25/24 walking, goint to [facility] Finances: meeting soon with 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 SW suggested that daughter check out [email or web address] to check out any other prod (more content not included)... Normal [facility] 36on 01-24-2025 36 Request for refill received from interface Last appointment: 08/25/2024 Next appointment: 02/23/2025 Pharmacy confirmed: [x] Yes [] No [facility] NM PET/CT BRAIN PLAQUE IMAGI NGon [...] purposes. There are no significant incidental findings. Clinical Laboratory Service Teacher: TOSIN Transcribe Date/Time: Oct 03 2024 8:53A Dictated by : CARIE MELGAR MD This examination was interpreted and the report reviewed and electronically signed by: CARIE MELGAR MD on Oct 03 2024 8:56AM EST [id number] Normal [facility] CBC W/Diff, Automatedon 11- Absolute Lymph 1.36 X10 3/uL Normal 0.83-4.51 [facility] Comment on above: Performed By: #### L 501.9310, L501.9520, L100.0500, L501.9985, L500.4050, L500.4100 #### [facility] [address] [place], [address] Absolute Neut 4.0 X10 3/uL Normal 2.0-7.7 [facility] Comment on above: Performed By: #### L 501.9310, L501.9520, L100.0500, L501.9985, L500.4050, L500.4100 #### [facility] [address] [place], [address] Basophils/100 WBC (Bld) 0.5 % Normal 0-1 [facility] Comment on above: Performed By: #### L 501.9310, L501.9520, L100.0500, L501.9985, L500.4050, L500.4100 #### [facility] [address] [place], [address] Eosinophils/100 WBC (Bld) 2.0 % Normal 0-5 [facility] Comment on above: Performed By: #### L 501.9310, L501.9520, L100.0500, L501.9985, L500.4050, L500.4100 #### [facility] [address] [place], [address] Erythrocyte distribution width (RBC) [Ratio] 12.9 % Normal 11.6-14.6 [facility] Comment on above: Performed By: #### L 501.9310, L501.9520, L100.0500, L501.9985, L500.4050, L500.4100 #### [facility] [address] [place], [address] Hematocrit (Bld) [Volume fraction] 39.3 % Normal 37-47 [facility] Comment on above: Performed By: #### L 501.9310, L501.9520, L100.0500, L501.9985, L500.4050, L500.4100 #### [facility] [address] [place], [address] Hemoglobin (Bld) [Mass/Vol] 13.1 g/dL Normal 12.0-15.0 [facility] Comment on above: Performed By: #### L 501.9310, L501.9520, L100.0500, L501.9985, L500.4050, L500.4100 #### [facility] [address] [place], [address] IG% 0.700 Normal 0.0-0.9 [facility] Comment on above: Result Comment: IG% - Immature Granulocytes (promyelocytes, myelocytes and metamyelocytes) > 1% indicates that a LEFT SHIFT is Present. Performed By: #### L 501.9310, L501.9520, L100.0500, L501.9985, L500.4050, L500.4100 #### [facility] [address] [place], [address] Lymphocytes/100 WBC (Bld) 22.9 % Normal 19-41 [facility] Comment on above: Performed By: #### L 501.9310, L501.9520, L100.0500, L501.9985, L500.4050, L500.4100 #### [facility] [address] [place], [address] MCH (RBC) [Entitic mass] 31.2 pg Normal 27.0-32.0 [facility] Comment on above: Performed By: #### L 501.9310, L501.9520, L100.0500, L501.9985, L500.4050, L500.4100 #### [facility] [address] [place], [address] MCHC (RBC) [Mass/Vol] 33.3 g/dL Normal 32-36 [facility] Comment on above: Performed By: #### L 501.9310, L501.9520, L100.0500, L501.9985, L500.4050, L500.4100 #### [facility] [address] [place], [address] MCV (RBC) [Entitic vol] 93.6 fL Normal 81-99 [facility] Comment on above: Performed By: #### L 501.9310, L501.9520, L100.0500, L501.9985, L500.4050, L500.4100 #### [facility] [address] [place], [address] Monocytes/100 WBC (Bld) 7.4 % Normal 0-10 [facility] Comment on above: Performed By: #### L 501.9310, L501.9520, L100.0500, L501.9985, L500.4050, L500.4100 #### [facility] [address] [place], [address] Neutrophils/100 WBC (Bld) 66.5 % Normal 47-70 [facility] Administration Comment on above: Performed By: #### L 501.9310, L501.9520, L100.0500, L501.9985, L500.4050, L500.4100 #### [facility] [address] [place], [address] Nucleated RBC (Bld) [#/Vol] 0 10*3/uL Normal 0-5 [facility] Comment on above: Performed By: #### L 501.9310, L501.9520, L100.0500, L501.9985, L500.4050, L500.4100 #### [facility] [address] [place], [address] Platelet mean volume (Bld) [Entitic vol] 10.5 fL Normal 6.2-12.0 [facility] Comment on above: Performed By: #### L 501.9310, L501.9520, L100.0500, L501.9985, L500.4050, L500.4100 #### [facility] [address] [place], [address] Platelets (Bld) [#/Vol] 255 10*3/uL Normal 150-450 [facility] Comment on above: Performed By: #### L 501.9310, L501.9520, L100.0500, L501.9985, L500.4050, L500.4100 #### [facility] [address] [place], [address] RBC (Bld) [#/Vol] 4.20 10*6/uL Normal 4.2-5.4 [facility] Comment on above: Performed By: #### L 501.9310, L501.9520, L100.0500, L501.9985, L500.4050, L500.4100 #### [facility] [address] [place], [address] RDW SD 44.2 fl High 35.1-43.9 [facility] Comment on above: Performed By: #### L 501.9310, L501.9520, L100.0500, L501.9985, L500.4050, L500.4100 #### [facility] [address] [place], [address] WBC (Bld) [#/Vol] 6.0 10*3/uL Normal 4.4-11.0 [facility] Comment on above: Performed By: #### L 501.9310, L501.9520, L100.0500, L501.9985, L500.4050, L500.4100 #### [facility] [address] [place], [address] Comprehensive Metabolic Prof ilon 09-21-2024 Albumin [Mass/Vol] 3.7 g/dL Normal 3.2-5.0 [facility] Comment on above: Performed By: #### L 501.9310, L501.9520, L100.0500, L501.9985, L500.4050, L500.4100 #### [facility] [address] [place], [address] Albumin/Globulin [Mass ratio] 1.0 {ratio} Normal 0.9-2.4 [facility] Comment on above: Performed By: #### L 501.9310, L501.9520, L100.0500, L501.9985, L500.4050, L500.4100 #### [facility] [address], [address] ALK P 86 U/L Normal 45-117 [facility] Comment on above: Performed By: #### L 501.9310, L501.9520, L100.0500, L501.9985, L500.4050, L500.4100 #### [facility] [address] [place], [address] ALT [Catalytic activity/Vol] 18 U/L Normal 13-56 [facility] Comment on above: Performed By: #### L 501.9310, L501.9520, L100.0500, L501.9985, L500.4050, L500.4100 #### [facility] [address] [place], [address] AST [Catalytic activity/Vol] 17 U/L Normal 15-37 [facility] Comment on above: Performed By: #### L 501.9310, L501.9520, L100.0500, L501.9985, L500.4050, L500.4100 #### [facility] [address] [place], [address] Bilirubin [Mass/Vol] 0.30 mg/dL Normal 0.20-1.00 [facility] Comment on above: Result Comment: For patients on eltrombopag therapy, use of Dimension [place] TBIL is not recommended. Performed By: #### L 501.9310, L501.9520, L100.0500, L501.9985, L500.4050, L500.4100 #### [facility] [address] [place], [address] BUN/CRE 14.4 RATIO Normal 10-20 [facility] Comment on above: Performed By: #### L 501.9310, L501.9520, L100.0500, L501.9985, L500.4050, L500.4100 #### [facility] [address] [place], [address] CA,Total 9.5 mg/dL Normal 8.5-10.1 [facility] Comment on above: Performed By: #### L 501.9310, L501.9520, L100.0500, L501.9985, L500.4050, L500.4100 #### [facility] [address] [place], [address] Chloride [Moles/Vol] 107 mmol/L Normal 98-107 [facility] Comment on above: Performed By: #### L 501.9310, L501.9520, L100.0500, L501.9985, L500.4050, L500.4100 #### [facility] [address] [place], [address] CO2 [Moles/Vol] 29.0 mmol/L Normal 21.0-32.0 [facility] Comment on above: Performed By: #### L 501.9310, L501.9520, L100.0500, L501.9985, L500.4050, L500.4100 #### [facility] [address] [place], [address] Creatinine [Mass/Vol] 1.04 mg/dL High 0.55-1.02 [facility] Comment on above: Result Comment: The validity of the calculated GFR GFRAA in patients over 70 years has not been determined. Clinical correlation is essential. Performed By: #### L 501.9310, L501.9520, L100.0500, L501.9985, L500.4050, L500.4100 #### [facility] [address] [place], [place], [id number] (919) EST GFR - AA 66 mL/min Normal >60 [facility] Comment on above: Result Comment: Afri can [place] GFR Calc Performed By: #### L 501.9310, L501.9520, L100.0500, L501.9985, L500.4050, L500.4100 #### [facility] [address] [place], [address] GAP 4 Low 5-15 [facility] Comment on above: Performed By: #### L 501.9310, L501.9520, L100.0500, L501.9985, L500.4050, L500.4100 #### [facility] [address] [place], [place], [id number] (673) GFR/1.73 sq M.predicted among non-blacks MDRD (S/P/Bld) [Vol rate/Area] 54 mL/min/{1.73_m2} Low >60 [facility] Comment on above: Result Comment: Non- GFR Calc Performed By: #### L 501.9310, L501.9520, L100.0500, L501.9985, L500.4050, L500.4100 #### [facility] [address] [place], [address] Globulin (S) [Mass/Vol] 3.6 g/dL Normal 2.2-4.2 [facility] Comment on above: Performed By: #### L 501.9310, L501.9520, L100.0500, L501.9985, L500.4050, L500.4100 #### [facility] [address] [place], [address] Glucose [Mass/Vol] 135 mg/dL High 74-106 [facility] Comment on above: Result Comment: Fast ing Glucose result greater than or equal to 126 mg/dL suggests DIABETES MELLITUS per A.D.A. criteria. Performed By: #### L 501.9310, L501.9520, L100.0500, L501.9985, L500.4050, L500.4100 #### [facility] [address] [place], [address] Potassium [Moles/Vol] 3.5 mmol/L Normal 3.5-5.1 [facility] Comment on above: Performed By: #### L 501.9310, L501.9520, L100.0500, L501.9985, L500.4050, L500.4100 #### [facility] [address] [place], [address] Sodium [Moles/Vol] 141 mmol/L Normal 136-145 [facility] Comment on above: Performed By: #### L 501.9310, L501.9520, L100.0500, L501.9985, L500.4050, L500.4100 #### [facility] [address] [place], [address] T PROT 7.3 g/dL Normal 6.4-8.2 [facility] Comment on above: Performed By: #### L 501.9310, L501.9520, L100.0500, L501.9985, L500.4050, L500.4100 #### [facility] [address] [place], [address] Urea nitrogen [Mass/Vol] 15 mg/dL Normal 7-18 [facility] Comment on above: Performed By: #### L 501.9310, L501.9520, L100.0500, L501.9985, L500.4050, L500.4100 #### [facility] [address] [place], [address] Lipid Profileon 09-21-2024 Cholesterol [Mass/Vol] 205 mg/dL High 200 [facility] Comment on above: Result Comment: <200 mg/dL Desirable 200-240 mg/dL Borderline >240 mg/dL High Risk Performed By: #### L 501.9310, L501.9520, L100.0500, L501.9985, L500.4050, L500.4100 #### [facility] [address] [place], [address] Cholesterol in HDL [Mass/Vol] 59 mg/dL Normal [facility] Comment on above: Result Comment: The drugs N-Acetylcysteine and Metamizole may falsely depress this assay. Reference Range HDL <40 mg/dL Low HDL Cholesterol HDL >or= 60 mg/dL High HDL Cholesterol Performed By: #### L 501.9310, L501.9520, L100.0500, L501.9985, L500.4050, L500.4100 #### [facility] [address] [place], [address] Cholesterol in LDL [Mass/Vol] 114 mg/dL Normal 0-130 [facility] Comment on above: Performed By: #### L 501.9310, L501.9520, L100.0500, L501.9985, L500.4050, L500.4100 #### [facility] [address] [place], [address] Cholesterol in VLDL [Mass/Vol] 32 mg/dL Normal 5-40 [facility] Comment on above: Performed By: #### L 501.9310, L501.9520, L100.0500, L501.9985, L500.4050, L500.4100 #### [facility] [address] [place], [place], [address] Triglyceride [Mass/Vol] 162 mg/dL Normal [facility] Comment on above: Result Comment: The drugs N-Acetylcysteine and Metamizole may falsely depress this assay. Serum Triglycerides Reference Interval Normal <150 mg/dL Borderline high 150 - 199 mg/dL High 200 - 499 mg/dL Very High > or = 500 mg/dL Performed By: #### L 501.9310, L501.9520, L100.0500, L501.9985, L500.4050, L500.4100 #### [facility] [address] [place], [place], [address] Zoe 09-19-2024 CNPN Telephone ([facility]) CYNDEE VITAL ([id number]) 1945 F Date Time Provider Department 09/19/24 AMILCAR BRADFORD MD [facility] During your visit today, we recorded the following information about you: MoctezumaAbdon, (R) 09/19/2024 10:13 AM Signed CYNDEE VITAL [id number] DOS: 09/29/24 PET INJ: 1430 PET 4: 1530 APPT NOTES: DO NOT SUBMIT AUTH TO INSURANCE, BILLED TO [employer] ANU [id number] PET BRAIN AMYVID [employer]SMITTAL FORM [...] Encounter Status:Closed by ABDON MOCTEZUMA on 09/19/24 [facility] 08-30-2024 ALLIED HEALTH HNO ID: [id number] Author: LYDIA COSTA RT(Colette) Service: Radiology Author [...] PATIENT PRESENTS WITH AN IMPLANTABLE OR ATTACHED HAUNTED HISTORY TOUR GUIDE: No ALLERGIES: Reviewed and unchanged CONTRAST ALLERGY: [...] August 30, 2024 TIME: 12:40 PM Normal [facility] CBC W Auto Differential pane l (Bld)on 08-30-2024 Basophils (Bld) [#/Vol] 0.03 10*3/uL Normal <0.11 [facility] Comment on above: Order Comment: Speci men Type: BLOOD SPECIMENOrdering Facility: [facility] Address: [address] [place] [address] Performed By: #### 5 7021-8 ####[facility] LABORATORYCLIA [id number] [place] [address] [place] Basophils/100 WBC (Bld) 0.3 % Normal [facility] Comment on above: Order Comment: Speci men Type: BLOOD SPECIMENOrdering Facility: [facility] Address: [address] [place] [address] Performed By: #### 5 7021-8 ####[facility] LABORATORYCLIA [id number] [address] [place] Differential cell count method Nom (Bld) Auto Normal [facility] Comment on above: Order Comment: Speci men Type: BLOOD SPECIMENOrdering Facility: [facility] Address: [address] [place] [address] Performed By: #### 5 7021-8 ####[facility] LABORATORYCLIA [id number] [place] [address] [place] Eosinophils (Bld) [#/Vol] 0.07 10*3/uL Normal <0.46 [facility] Comment on above: Order Comment: Speci men Type: BLOOD SPECIMENOrdering Facility: [facility] Address: [address] [place] [address] Performed By: #### 5 7021-8 ####[facility] LABORATORYCLIA [id number] [address] [place] Eosinophils/100 WBC (Bld) 0.8 % Normal [facility] Comment on above: Order Comment: Speci men Type: BLOOD SPECIMENOrdering Facility: [facility] Address: [address] [place] [address] Performed By: #### 5 7021-8 ####[facility] LABORATORYCLIA [id number] [address] [place] Erythrocyte distribution width (RBC) [Ratio] 12.7 % Normal 11.5-15.0 [facility] Comment on above: Order Comment: Speci men Type: BLOOD SPECIMENOrdering Facility: [facility] Address: [address] [place] [address] Performed By: #### 5 7021-8 ####[facility] LABORATORYCLIA [id number] [address] [place] Hematocrit (Bld) [Volume fraction] 40.3 % Normal 36.0-46.0 [facility] Comment on above: Order Comment: Speci men Type: BLOOD SPECIMENOrdering Facility: [facility] Address: [address] [place] [address] Performed By: #### 5 7021-8 ####[facility] LABORATORYCLIA [id number] [place] [address] [place] Hemoglobin (Bld) [Mass/Vol] 13.6 g/dL Normal 11.5-15.5 [facility] Comment on above: Order Comment: Speci men Type: BLOOD SPECIMENOrdering Facility: [facility] Address: [address] [place] [address] Performed By: #### 5 7021-8 ####[facility] LABORATORYCLIA [id number] [place] [address] [place] Immature granulocytes (Bld) [#/Vol] 10*3/uL Normal <0.10 [facility] Comment on above: Order Comment: Speci men Type: BLOOD SPECIMENOrdering Facility: [facility] Address: [address] [place] [address] Performed By: #### 5 7021-8 ####[facility] LABORATORYCLIA [id number] [address] [place] Immature granulocytes/100 WBC (Bld) 0.2 % Normal [facility] Comment on above: Order Comment: Speci men Type: BLOOD SPECIMENOrdering Facility: [facility] Address: [address] [place] [address] Performed By: #### 5 7021-8 ####[facility] LABORATORYCLIA [id number] [place] [address] [place] Lymphocytes (Bld) [#/Vol] 1.87 10*3/uL Normal 1.00-4.00 [facility] Comment on above: Order Comment: Speci men Type: BLOOD SPECIMENOrdering Facility: [facility] Address: [address] [place] [address] Performed By: #### 5 7021-8 ####DIE[facility] LABORATORYCLIA [id number] [place] [address] [place] Lymphocytes/100 WBC (Bld) 21.5 % Normal [facility] Comment on above: Order Comment: Speci men Type: BLOOD SPECIMENOrdering Facility: [facility] Address: [address] [place] [address] Performed By: #### 5 7021-8 ####[facility] LABORATORYCLIA [id number] [address] MCH (RBC) [Entitic mass] 31.6 pg Normal 26.0-34.0 [facility] Comment on above: Order Comment: Speci men Type: BLOOD SPECIMENOrdering Facility: [facility] Address: [address] [place] [address] Performed By: #### 5 7021-8 ####[facility] LABORATORYCLIA [id number] [address] MCHC (RBC) [Mass/Vol] 33.7 g/dL Normal 30.5-36.0 [facility] Comment on above: Order Comment: Speci men Type: BLOOD SPECIMENOrdering Facility: [facility] Address: [address] [place] [address] Performed By: #### 5 7021-8 ####[facility] LABORATORYCLIA [id number] [address] MCV (RBC) [Entitic vol] 93.7 fL Normal 80.0-100.0 [facility] Comment on above: Order Comment: Speci men Type: BLOOD SPECIMENOrdering Facility: [facility] Address: [address] [place] [address] Performed By: #### 5 7021-8 ####[facility] LABORATORYCLIA [id number] [address] Monocytes (Bld) [#/Vol] 0.91 10*3/uL High <0.87 [facility] Comment on above: Order Comment: Speci men Type: BLOOD SPECIMENOrdering Facility: [facility] Address: [address] [place] [address] Performed By: #### 5 7021-8 ####[facility] LABORATORYCLIA [id number] [address] Monocytes/100 WBC (Bld) 10.5 % Normal [facility] Comment on above: Order Comment: Speci men Type: BLOOD SPECIMENOrdering Facility: [facility] Address: [address] [place] [address] Performed By: #### 5 7021-8 ####DIE[facility] LABORATORYCLIA [id number] [place] [address] [place] Neutrophils (Bld) [#/Vol] 5.79 10*3/uL Normal 1.45-7.50 [facility] Comment on above: Order Comment: Speci men Type: BLOOD SPECIMENOrdering Facility: [facility] Address: [address] [place] [address] Performed By: #### 5 7021-8 ####[facility] LABORATORYCLIA [id number] [place] [address] [place] Neutrophils/100 WBC (Bld) 66.7 % Normal [facility] Comment on above: Order Comment: Speci men Type: BLOOD SPECIMENOrdering Facility: [facility] Address: [address] [place] [address] Performed By: #### 5 7021-8 ####D[facility] LABORATORYCLIA [id number] [place] [address] [place] Nucleated RBC (Bld) [#/Vol] 10*3/uL Normal <0.01 [facility] Comment on above: Order Comment: Speci men Type: BLOOD SPECIMENOrdering Facility: [facility] Address: [address] [place] [address] Performed By: #### 5 7021-8 ####[facility] LABORATORYCLIA [id number] [place] [address] [place] Nucleated RBC/100 WBC (Bld) [Ratio] 0.0 /100 WBC Normal [facility] Comment on above: Order Comment: Speci men Type: BLOOD SPECIMENOrdering Facility: [facility] Address: [address] [place] [address] Performed By: #### 5 7021-8 ####D[facility] LABORATORYCLIA [id number] [place] [address] [place] Platelet mean volume (Bld) [Entitic vol] 9.5 fL Normal 9.0-12.7 [facility] Comment on above: Order Comment: Speci men Type: BLOOD SPECIMENOrdering Facility: [facility] Address: [address] [place] [address] Performed By: #### 5 7021-8 ####DIE[facility] LABORATORYCLIA [id number] [address] [place] Platelets (Bld) [#/Vol] 229 10*3/uL Normal 150-400 [facility] Comment on above: Order Comment: Speci men Type: BLOOD SPECIMENOrdering Facility: [facility] Address: [address] [place] [address] Performed By: #### 5 7021-8 ####BOSLER LABORATORYCLIA [id number] [address] [place] RBC (Bld) [#/Vol] 4.30 10*6/uL Normal 3.90-5.20 [facility] Comment on above: Order Comment: Speci men Type: BLOOD SPECIMENOrdering Facility: [facility] Address: [address] [place] [address] Performed By: #### 5 7021-8 ####BOSLER LABORATORYCLIA [id number] [address] [facility] WBC (Bld) [#/Vol] 8.69 10*3/uL Normal 3.70-11.00 [facility] Comment on above: Order Comment: Speci men Type: BLOOD SPECIMENOrdering Facility: [facility] Address: [address] [place] [address] Performed By: #### 5 7021-8 ####BOSLER LABORATORYCLIA [id number] [place] [id number] [facility] CT ABD/PEL W IVCONon 22-[address] ABD/PEL W IVCON * * *Final Report* * * DATE OF EXAM: Aug 30 2024 12:40PM [facility] [place]BD/PEL W IVCON / [...] acute process in the abdomen or pelvis Clinical Laboratory Service Teacher: [facility] Transcribe Date/Time: Aug 30 2024 1:18P Dictated by : CATY ROJAS MD This examination was interpreted and the report reviewed and electronically signed by: CATY ROJAS MD on Aug 30 2024 1:25PM EST [id number] Normal [facility] Comprehensive metabolic 2000 panelon 08-30-2024 Albumin [Mass/Vol] 4.3 g/dL Normal 3.9-4.9 [facility] Comment on above: Order Comment: Speci men Type: BLOOD SPECIMENOrdering Facility: [facility] Address: [address] [place] [address] Performed By: #### 2 4323-8 ####BOSLER LABORATORYCLIA [id number] [address] [facility] ALP [Catalytic activity/Vol] 73 U/L Normal 34-123 [facility] Comment on above: Order Comment: Speci men Type: BLOOD SPECIMENOrdering Facility: [facility] Address: [address] [place] [id number] Performed By: #### 2 4323-8 ####DIE[facility] LABORATORYCLIA [id number] [place], [place] [id number] [place] [address] ALT [Catalytic activity/Vol] 13 U/L Normal 7-38 [facility] Comment on above: Order Comment: Speci men Type: BLOOD SPECIMENOrdering Facility: [facility] Address: [address] [place] [address] Performed By: #### 2 4323-8 ####DIE[facility] LABORATORYCLIA [id number] [place] [address] [place] Anion gap [Moles/Vol] 10 mmol/L Normal 8-15 [facility] Comment on above: Order Comment: Speci men Type: BLOOD SPECIMENOrdering Facility: [facility] Address: [address] [place] [address] Performed By: #### 2 4323-8 ####DIE[facility] LABORATORYCLIA [id number] [address] [place] AST [Catalytic activity/Vol] 19 U/L Normal 13-35 [facility] Comment on above: Order Comment: Speci men Type: BLOOD SPECIMENOrdering Facility: [facility] Address: [address] [place] [address] Performed By: #### 2 4323-8 ####DIE[facility] LABORATORYCLIA [id number] [place] [address] [place] Bilirubin [Mass/Vol] 0.8 mg/dL Normal 0.2-1.3 [facility] Comment on above: Order Comment: Speci men Type: BLOOD SPECIMENOrdering Facility: [facility] Address: [address] [place] [address] Performed By: #### 2 4323-8 ####D[facility] LABORATORYCLIA [id number] [address] [place] Calcium [Mass/Vol] 9.4 mg/dL Normal 8.5-10.2 [facility] Comment on above: Order Comment: Speci men Type: BLOOD SPECIMENOrdering Facility: [facility] Address: [address] [place] [address] Performed By: #### 2 4323-8 ####DIE[facility] LABORATORYCLIA [id number] [place] [address] [place] Chloride [Moles/Vol] 103 mmol/L Normal 98-107 [facility] Comment on above: Order Comment: Jessica shearer Type: BLOOD SPECIMENOrdering Facility: [facility] Address: [address] [place] [address] Performed By: #### 2 4323-8 ####DIE[facility] LABORATORYCLIA [id number] [place] [address] [place] CO2 [Moles/Vol] 26 mmol/L Normal 22-30 [facility] Comment on above: Order Comment: Jessica shearer Type: BLOOD SPECIMENOrdering Facility: [facility] Address: [address] [place] [address] Performed By: #### 2 4323-8 ####[facility] LABORATORYCLIA [id number] [address] Creatinine [Mass/Vol] 1.13 mg/dL High 0.58-0.96 [facility] Comment on above: Order Comment: Jessica men Type: BLOOD SPECIMENOrdering Facility: [facility] Address: [address] [place] [address] Performed By: #### 2 4323-8 ####D[facility] LABORATORYCLIA [id number] [address] Creatinine and Glomerular filtration rate.predicted panel (S/P/Bld) 50 mL/min/1.73m??? Low >=60 [facility] Comment on above: Order Comment: Jessica [facility] Type: BLOOD SPECIMENOrdering Facility: [facility] Address: [address] [place] [address] Result Comment: Tanja mated Glomerular Filtration Rate [...] Performed By: #### 2 4323-8 ####D[facility] LABORATORYCLIA [id number] [place] [address] [place] Glucose [Mass/Vol] 113 mg/dL High 74-99 [facility] Comment on above: Order Comment: Speci men Type: BLOOD SPECIMENOrdering Facility: [facility] Address: [address] [place] [address] Result Comment: The [place] [employer] (ADA) provides guidance for cutoff [...] Standards of Medical Care in Diabetes 2016, [place] [employer]. Diabetes Care. 2016.39(Suppl 1). Performed By: #### 2 4323-8 ####DIEGO LABORATORYCLIA [id number] [place] [address] [place] Potassium [Moles/Vol] 4.4 mmol/L Normal 3.7-5.1 [facility] Comment on above: Order Comment: Zoilai men Type: BLOOD SPECIMENOrdering Facility: [facility] Address: [address] [place] [address] Performed By: #### 2 4323-8 ####DIEGO LABORATORYCLIA [id number] [place] [address] [place] Protein [Mass/Vol] 7.3 g/dL Normal 6.3-8.0 [facility] Comment on above: Order Comment: Speci men Type: BLOOD SPECIMENOrdering Facility: [facility] Address: [address] [place] [address] Performed By: #### 2 4323-8 ####DIEGO LABORATORYCLIA [id number] [place] [address] [place] Sodium [Moles/Vol] 139 mmol/L Normal 136-144 [facility] Comment on above: Order Comment: Speci men Type: BLOOD SPECIMENOrdering Facility: [facility] Address: [address] [id number] Performed By: #### 2 4323-8 ####DIEGO LABORATORYCLIA [id number] [place] [id number] [facility] Urea nitrogen [Mass/Vol] 14 mg/dL Normal 7- [facility] Comment on above: Order Comment: Speci men Type: BLOOD SPECIMENOrdering Facility: [facility] Address: [address] [id number] Performed By: #### 2 4323-8 ####DIEGO LABORATORYCLIA [id number] [address] ED NOTEon 08-30-2024 ED NOTE HNO ID: [id number] Author: NARESH GRAF RN Service: Nursing Author [...] all personal belongings exiting the facility. Normal [facility] ED PROV NOTEon 08-30-2024 ED PROV NOTE HNO ID: [id number] Author: SHAKILA RUIZ MD Service: ? Author [...] Abnormal; Notable for the following components: Abs Sully 0.91 (*) <0.87 k/uL All other components [...] Record Review (more content not included)... Normal [facility] PET/CT BRAIN [facility] IM[facility]I [facility] 04-26-2024 NM PET/CT BRAIN PLAQUE IMAGING * * *Final Report* * * DATE OF EXAM: Apr 26 2024 3:31PM [facility] 0104 - NM PET/CT BRAIN PLAQUE IMAGING [...] purposes. There are no significant incidental findings. Clinical Laboratory Service Teacher: TOSIN Transcribe Date/Time: May 04 2024 1:10P Dictated by : JOSUÉ MCCORMACK MD This examination was interpreted and the report reviewed and electronically signed by: JOSUÉ MCCORMACK MD on May 04 2024 1:14PM EST [id number] Normal [facility] 04-18-2024 CNPN Telephone (MFI) CYNDEE VITAL ([id number]) 1945 F Date Time Provider Department 04/18/24 AMILCAR BRADFORD MD [facility] During your visit today, we recorded the following information about you: Casey Abdon, RT(R) 04/18/2024 11:41 AM Signed CYNDEE VITAL [id number] DOS: 04/26/24 PET INJ: 1430 PET 2: 1530 APPT NOTES: DO NOT SUBMIT AUTH TO INSURANCE, [id number] PET BRAIN AMYVID [employer] TRANSMITTAL FORM [...] Status:Closed by ABDON MOCTEZUMA on 04/18/24 Normal [facility] MR Brain WO contraston 01-[address] [facility] Absolute lymphocyte countOrd ered By: Emi Cook on 01-26-2024 Lymphocytes Auto (Unsp spec) [#/Vol] 1.56 10*3/uL 0.83-4.51 [facility] Automated lymphocyte count a s percentage of total leukocytesOrdered By: Emi Cook on 01-26-2024 Lymphocytes/100 WBC Auto (Unsp spec) 23.9 % 19-41 [facility] Basophil percentageOrdered B y: Emi Cook on 01-26-2024 Basophils/100 WBC (Bld) 0.8 % 0-1 [facility] Bilirubin [Mass/Vol] 0.50 mg/dL 0.20-1.00 [facility] Comment on above: For patients on eltr ombopag therapy, use of Dimension [place] TBIL is not recommended. Chloride [Moles/Vol] 105 mmol/L 98-107 [facility] Eosinophils/100 WBC (Bld) 2.8 % 0-5 [facility] Glucose [Mass/Vol] 99 mg/dL 74-106 [facility] Hemoglobin (Bld) [Mass/Vol] 12.8 g/dL 12.0-15.0 [facility] Monocytes/100 WBC (Bld) 11.5 % 0-10 [facility] Neutrophils (Bld) [#/Vol] 4.0 10*3/uL 2.0-7.7 [facility] Neutrophils/100 WBC (Bld) 60.7 % 47-70 [facility] Potassium [Moles/Vol] 4.2 mmol/L 3.5-5.1 [facility] Protein [Mass/Vol] 7.4 g/dL 6.4-8.2 [facility] Sodium [Moles/Vol] 140 mmol/L 136-145 [facility] WBC (Bld) [#/Vol] 6.5 10*3/uL 4.4-11.0 [facility] Culture, urineOrdered By: Do ra Cook on 01-26-2024 Bacteria identified Cx Nom (U) Culture exhibits no growth. [facility] Determination of erythrocyte mean corpuscular volume (MCV)Ordered By: Emi Cook on 01-26-2024 MCV (RBC) [Entitic vol] 94.1 fL 81-99 [facility] Erythrocyte distribution wid th ratioOrdered By: Emi Cook on 01-26-2024 Erythrocyte distribution width (RBC) [Ratio] 13.9 % 11.6-14.6 [facility] Erythrocyte distribution wid th standard deviationOrdered By: Emi Cook on 01-26-2024 Erythrocyte distribution width (RBC) [Entitic vol] 47.3 fL 35.1-43.9 [facility] Hematocrit Auto (Bld) [Volum e fraction]Ordered By: Emi Cook on 01-26-2024 Hematocrit (Bld) [Volume fraction] 39.9 % 37-47 [facility] Immature granulocytes/100 WB C Auto (Bld)Ordered By: Emi Cook on 01-26-2024 Immature granulocytes/100 WBC (Bld) 0.300 % 0.0-0.9 [facility] Comment on above: IG% - Immature Granu locytes (promyelocytes, myelocytes and metamyelocytes) > 1% indicates that a LEFT SHIFT is Present. Laboratory - Chemistry and C hemistry - challengeOrdered By: Emi Cook on 01-26-2024 Albumin/Globulin [Mass ratio] 0.9 {ratio} 0.9-2.4 [facility] ALP [Catalytic activity/Vol] 106 U/L 45-117 [facility] ALT [Catalytic activity/Vol] 24 U/L 13-56 [facility] CO2 [Moles/Vol] 29.0 mmol/L 21.0-32.0 [facility] Cobalamin (Vitamin B12) [Mass/Vol] 908 pg/mL 211-911 [facility] Globulin (S) [Mass/Vol] 3.8 g/dL 2.2-4.2 [facility] Urea nitrogen/Creatinine [Mass ratio] 13.4 mg/mg 10-20 [facility] Laboratory - Chemistry and C hemistry - challengeon 01-26-2024 Bilirubin Ql (U) Negative [facility] Glucose Ql (U) Negative [facility] Ketones Ql (U) Negative [facility] pH (U) 6.5 [pH] [facility] Specific gravity (U) [Rel density] 1.015 [facility] Urobilinogen (U) [Mass/Vol] 0.5124112 mg/dL [facility] Laboratory - Hematology and Cell countsOrdered By: Emi Cook on 01-26-2024 MCH (RBC) [Entitic mass] 30.2 pg 27.0-32.0 [facility] MCHC (RBC) [Mass/Vol] 32.1 g/dL 32-36 [facility] Nucleated RBC/100 WBC (Bld) [Ratio] 0 % 0-5 [facility] Platelet mean volume (Bld) [Entitic vol] 9.5 fL 6.2-12.0 [facility] Platelets (Bld) [#/Vol] 302 10*3/uL 150-450 [facility] Laboratory - Hematology and Cell countson 01-26-2024 Hemoglobin Ql (U) Hemolyzed [facility] Laboratory - Specimen inform ationon 01-26-2024 Clarity (U) Clear [facility] Color (U) YELLOW [facility] Laboratory - Urinalysison Nitrite Ql (U) Negative [facility] Protein Ql (U) Negative [facility] No Panel InformationOrdered By: Emi Cook on 01-26-2024 Estimated GFR (MDRD) Amer 72 mL/min >60 [facility] Comment on above: GFR Calc Estimated GFR (MDRD) Non-Af Amer 59 mL/min >60 [facility] Comment on above: Non- GFR Calc No Panel Informationon 01-25 Urine Leukocytes Negatve [facility] Urine Non-Hemolyzed Blood Trace [facility] RBC Auto (Bld) [#/Vol]Ordere d By: Emi Cook on 01-26-2024 RBC (Bld) [#/Vol] 4.24 10*6/uL 4.2-5.4 [facility] Serum or plasma calcitriol m easurement (mass/volume)Ordered By: Emi Cook on 01-26-2024 1,25-dihydroxyvitamin D3 [Mass/Vol] 64.8 pg/mL 24.8-81.5 [facility] Comment on above: Performed at: - [address] [id number] Director: Amirah Menard MD, Phone: [phone] Serum or plasma calcium yahaira urement (mass/volume)Ordered By: Emi oCok on 01-26-2024 Calcium [Mass/Vol] 9.2 mg/dL 8.5-10.1 [facility] Serum or plasma creatinine m easurement (mass/volume)Ordered By: Emi Cook on 01-26-2024 Creatinine [Mass/Vol] 0.97 mg/dL 0.55-1.02 [facility] Comment on above: The validity of the calculated GFR & GFRAA in patients over 70 years has not been determined. Clinical correlation is essential. Serum or plasma thyroid stim ulating hormone (TSH) measurement (units/volume)Ordered By: Emi Cook on 01-26-2024 TSH Qn 2.75 uIU/mL 0.358-3.74 [facility] Serum or plasma urea nitroge n measurement (mass/volume)Ordered By: Emi Cook on 01-26-2024 Urea nitrogen [Mass/Vol] 13 mg/dL 7-18 [facility] Thin prep Papanicolaou smear with manual screeningOrdered By: Emi Cook on 01-26-2024 Thin prep Papanicolaou smear with manual screening 3.6 g/dL 3.2-5.0 [facility] Thin prep Papanicolaou smear with manual screening 19 U/L 15-37 [facility] Thin prep Papanicolaou smear with manual screening 6 5-15 [facility] ALLIED HEALTHon 01-13-2024 ALLIED HEALTH HNO ID: [id number] Author: ESPERANZA KAPADIA RT(R) Service: Radiology Author [...] PATIENT PRESENTS WITH AN IMPLANTABLE OR ATTACHED HAUNTED HISTORY TOUR GUIDE: No RADIOLOGY DEPARTMENT: CT; Exam(s) Completed: Brain and Spine PERIPHERAL IV DATA: Not applicable SIGNED BY: RT Traci(R) January 13, 2024 12:20 PM Normal [facility] Basic metabolic 2000 panelon 01-13-2024 Anion gap [Moles/Vol] 11 mmol/L Normal 9-18 [facility] Comment on above: Order Comment: Jessica shearer Type: BLOOD SPECIMENOrdering Facility: [facility] Address: [address] [place] [address] Performed By: #### 2 4321-2 ####BOSLER LABORATORYCLIA [id number] [place] [address] [place] Calcium [Mass/Vol] 9.3 mg/dL Normal 8.5-10.2 [facility] Comment on above: Order Comment: Jessica shearer Type: BLOOD SPECIMENOrdering Facility: [facility] Address: [address] [place] [address] Performed By: #### 2 4321-2 ####DIEGO LABORATORYCLIA [id number] [address] [place] [facility] Chloride [Moles/Vol] 96 mmol/L Low 97-105 [facility] Comment on above: Order Comment: Jessica shearer Type: BLOOD SPECIMENOrdering Facility: [facility] Address: [address] [place] [address] Performed By: #### 2 4321-2 ####DIEGO LABORATORYCLIA [id number] [address] CO2 [Moles/Vol] 27 mmol/L Normal 22-30 [facility] Comment on above: Order Comment: Jessica shearer Type: BLOOD SPECIMENOrdering Facility: [facility] Address: [address] [place] [address] Performed By: #### 2 4321-2 ####DIEGO LABORATORYCLIA [id number] [address] Creatinine [Mass/Vol] 0.85 mg/dL Normal 0.58-0.96 [facility] Comment on above: Order Comment: Jessica men Type: BLOOD SPECIMENOrdering Facility: [facility] Address: [address] [place] [address] Performed By: #### 2 4321-2 ####DIEGO LABORATORYCLIA [id number] [address] Creatinine and Glomerular filtration rate.predicted panel (S/P/Bld) 71 mL/min/1.73m??? Normal >=60 [facility] Comment on above: Order Comment: Jessica shearer Type: BLOOD SPECIMENOrdering Facility: [facility] Address: [address] [place] [address] Result Comment: Tanja mated Glomerular Filtration Rate [...] Performed By: #### 2 4321-2 ####DIEGO LABORATORYCLIA [id number] [place] [id number] [place] Glucose [Mass/Vol] 108 mg/dL High 74-99 [facility] Comment on above: Order Comment: Jessica shearer Type: BLOOD SPECIMENOrdering Facility: [facility] Address: [address] [place] [address] Result Comment: The [place] [employer] (ADA) provides guidance for cutoff [...] Standards of Medical Care in Diabetes 2016, [place] [employer]. Diabetes Care. 2016.39(Suppl 1). Performed By: #### 2 4321-2 ####DIEGO LABORATORYCLIA [id number] [place] [address] [place] Potassium [Moles/Vol] 3.7 mmol/L Normal 3.7-5.1 [facility] Comment on above: Order Comment: Jessica shearer Type: BLOOD SPECIMENOrdering Facility: [facility] Address: [address] [place] [address] Performed By: #### 2 4321-2 ####DIEGO LABORATORYCLIA [id number] [place] [id number] [place] Sodium [Moles/Vol] 134 mmol/L Low 136-144 [facility] Comment on above: Order Comment: Jessica shearer Type: BLOOD SPECIMENOrdering Facility: [facility] Address: [address] [place] [address] Performed By: #### 2 4321-2 ####DIEGO LABORATORYCLIA [id number] [place] [id number] [place] Urea nitrogen [Mass/Vol] 19 mg/dL Normal 7-21 [facility] Comment on above: Order Comment: Speci men Type: BLOOD SPECIMENOrdering Facility: [facility] Address: [address] [place] [address] Performed By: #### 2 4321-2 ####DIGEO LABORATORYCLIA [id number] [address] CBC panel Auto (Bld)on 01-12 Erythrocyte distribution width (RBC) [Ratio] 13.0 % Normal 11.5-15.0 [facility] Comment on above: Order Comment: Speci men Type: BLOOD SPECIMENOrdering Facility: [facility] Address: [address] [place] [address] Performed By: #### 5 8410-2 ####DIEGO LABORATORYCLIA [id number] [address] Hematocrit (Bld) [Volume fraction] 38.4 % Normal 36.0-46.0 [facility] Comment on above: Order Comment: Speci men Type: BLOOD SPECIMENOrdering Facility: [facility] Address: [address] [place] [address] Performed By: #### 5 8410-2 ####DIEGO LABORATORYCLIA [id number] [address] Hemoglobin (Bld) [Mass/Vol] 13.6 g/dL Normal 11.5-15.5 [facility] Comment on above: Order Comment: Speci men Type: BLOOD SPECIMENOrdering Facility: [facility] Address: [address] [place] [address] Performed By: #### 5 8410-2 ####DIEGO LABORATORYCLIA [id number] [address] MCH (RBC) [Entitic mass] 31.6 pg Normal 26.0-34.0 [facility] Comment on above: Order Comment: Speci men Type: BLOOD SPECIMENOrdering Facility: [facility] Address: [address] [place] [address] Performed By: #### 5 8410-2 ####DIEGO LABORATORYCLIA [id number] [address] MCHC (RBC) [Mass/Vol] 35.4 g/dL Normal 30.5-36.0 [facility] Comment on above: Order Comment: Speci men Type: BLOOD SPECIMENOrdering Facility: [facility] Address: [address] [place] [address] Performed By: #### 5 8410-2 ####DIEGO LABORATORYCLIA [id number] [place] [address] [place] MCV (RBC) [Entitic vol] 89.1 fL Normal 80.0-100.0 [facility] Comment on above: Order Comment: Speci men Type: BLOOD SPECIMENOrdering Facility: [facility] Address: [address] [place] [address] Performed By: #### 5 8410-2 ####IDEGO LABORATORYCLIA [id number] [address] [place] Nucleated RBC (Bld) [#/Vol] 10*3/uL Normal <0.01 [facility] Comment on above: Order Comment: Speci men Type: BLOOD SPECIMENOrdering Facility: [facility] Address: [address] [place] [address] Performed By: #### 5 8410-2 ####DIEGO LABORATORYCLIA [id number] [address] [place] Platelet mean volume (Bld) [Entitic vol] 9.2 fL Normal 9.0-12.7 [facility] Comment on above: Order Comment: Speci men Type: BLOOD SPECIMENOrdering Facility: [facility] Address: [address] [place] [address] Performed By: #### 5 8410-2 ####DIEGO LABORATORYCLIA [id number] [place] [address] [place] Platelets (Bld) [#/Vol] 322 10*3/uL Normal 150-400 [facility] Comment on above: Order Comment: Speci men Type: BLOOD SPECIMENOrdering Facility: [facility] Address: [address] [place] [address] Performed By: #### 5 8410-2 ####DIEGO LABORATORYCLIA [id number] [place] [address] [place] RBC (Bld) [#/Vol] 4.31 10*6/uL Normal 3.90-5.20 [facility] Comment on above: Order Comment: Speci men Type: BLOOD SPECIMENOrdering Facility: [facility] Address: [address] [place] [address] Performed By: #### 5 8410-2 ####BOSLER LABORATORYCLIA [id number] [address] [place] WBC (Bld) [#/Vol] 13.59 10*3/uL High 3.70-11.00 [facility] Comment on above: Order Comment: Speci men Type: BLOOD SPECIMENOrdering Facility: [facility] Address: [address] [place] [address] Performed By: #### 5 8410-2 ####BOSLER LABORATORYCLIA [id number] [address] BRAIN WO IVCONon 01-13-[address] BRAIN WO IVCON * * *Final Report* * * DATE OF EXAM: Jan 13 2024 12:20PM [facility] [place]IN [place] / [...] C5-C6 foraminal stenosis. No significant canal stenosis. Information Technology Professor (topogram) images: No significant findings. IMPRESSION: No CT evidence of acute intracranial abnormality. 5 cm LEFT parietal scalp hematoma without underlying calvarial fracture. No evidence of acute cervical spine fracture. 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 Clinical Laboratory Service Teacher: TOSIN Transcribe Date/Time: Jan 13 2024 12:40P Dictated by : ADDISON GUTIERREZ DO This examination was interpreted and the report reviewed and electronically signed by: ADDISON GUTIERREZ DO on Jan 13 2024 1:08PM EST [id number] [facility] CT CERVICAL SPINE WO IVCONon 01-13-2024 CT CERVICAL SPINE WO IVCON * * *Final Report* * * DATE OF EXAM: Jan 13 2024 12:20PM [facility] [place] CERVICAL SPINE WO IVCON [...] C5-C6 foraminal stenosis. No significant canal stenosis. Information Technology Professor (topogram) images: No significant findings. IMPRESSION: No CT evidence of acute intracranial abnormality. 5 cm LEFT parietal scalp hematoma without underlying calvarial fracture. No evidence of acute cervical spine fracture. 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 Clinical Laboratory Service Teacher: PSCB Transcribe Date/Time: Jan 13 2024 12:40P Dictated by : ADDISON GUTIERREZ DO This examination was interpreted and the report reviewed and electronically signed by: ADDISON GUTIERREZ DO on Jan 13 2024 1:08PM EST [id number] [facility] ED NOTEon 01-13-2024 ED NOTE HNO ID: [id number] Author: BETTY GAFFNEY, PAULETTE Service: Nursing Author Type: Registered Nurse Type: [...] off ED in no distress, with son. [facility] ED NOTE HNO ID: [id number] Author: BETTY GAFFNEY RN Service: Nursing Author Type: Registered Nurse Type: ED Notes Filed: 01/13/2024 12:26 Note Text: Pt back to Ed from [facility] ED NOTE HNO ID: [id number] Author: BETTY GAFFNEY RN Service: Nursing Author Type: Registered Nurse Type: ED Notes Filed: 01/13/2024 11:55 Note Text: Pt to CT with tech [facility] ED NOTE HNO ID: [id number] Author: SUJATHA MCKEE RN Service: Nursing Author Type: Registered Nurse Type: ED Notes Filed: 01/13/2024 11:20 Note Text: Patient has been taking flexeril 3x daily and has been unsteady. She fell off the toilet this morning, large hematoma on back of head. No thinners, no LOC per her daughter who witnessed the fall. [facility] ED PROV NOTEon 01-13-2024 ED PROV NOTE HNO ID: [id number] Author: SHAKILA WARE DO Service: Emergency Medicine [...] encounter MDM / Disposition / Plan Cyndee A Baringer 78-year-old female is presenting to the [...] with grade 1 C6 on C7 spondylolisthesis. Clinical Laboratory Service Teacher: TOSIN Transcribe Date/Time: Jan 13 2024 12:40P [...] with grade 1 C6 on C7 spondylolisthesis. Clinical Laboratory Service Teacher: TOSIN Transcribe Date/Time: Jan 13 2024 12:40P Dictated by : ADDISON GUTIERREZ DO This examination was interpreted and the report reviewed and electronically signed by: ADDISON GUTIERREZ DO on Jan 13 2024 1:08PM EST Meds Given During Visit ED Me (more content not included)... Normal [facility] Urinalysis complete panel (U )on 01-13-2024 Bacteria LM.HPF (Urine sed) [#/Area] Few Abnormal None Seen [facility] Comment on above: Order Comment: Speci men Type: URINE SPECIMENOrdering Facility: [facility] Address: [address] [place] [address] Performed By: #### 2 4356-8 ####DIEGO LABORATORYCLIA [id number] [address] Bilirubin Ql (U) Negative Normal Negative [facility] Comment on above: Order Comment: Speci men Type: URINE SPECIMENOrdering Facility: [facility] Address: [address] [place] [address] Performed By: #### 2 4356-8 ####DIEGO LABORATORYCLIA [id number] [address] CALCIUM OXALATE CRYSTALS (UA) Moderate Abnormal None Seen [facility] Comment on above: Order Comment: Speci men Type: URINE SPECIMENOrdering Facility: [facility] Address: [address] [place] [address] Performed By: #### 2 4356-8 ####DIEGO LABORATORYCLIA [id number] [address] Clarity (Unsp spec) Clear Normal Clear [facility] Comment on above: Order Comment: Speci men Type: URINE SPECIMENOrdering Facility: [facility] Address: [address] [place] [address] Performed By: #### 2 4356-8 ####DIEGO LABORATORYCLIA [id number] [address] Color (U) Yellow Normal Yellow [facility] Comment on above: Order Comment: Speci men Type: URINE SPECIMENOrdering Facility: [facility] Address: [address] [place] [address] Performed By: #### 2 4356-8 ####DIEGO LABORATORYCLIA [id number] [address] Epithelial cells LM.HPF (Urine sed) [#/Area] Few Normal [facility] Comment on above: Order Comment: Speci men Type: URINE SPECIMENOrdering Facility: [facility] Address: [address] [place] [address] Performed By: #### 2 4356-8 ####DIEGO LABORATORYCLIA [id number] [place] [address] [place] Glucose Test strip (U) [Mass/Vol] Negative Normal Negative [facility] Comment on above: Order Comment: Speci men Type: URINE SPECIMENOrdering Facility: [facility] Address: [address] [place] [address] Performed By: #### 2 4356-8 ####DIEGO LABORATORYCLIA [id number] [address] [place] Hemoglobin Ql (U) Trace Abnormal Negative [facility] Comment on above: Order Comment: Speci men Type: URINE SPECIMENOrdering Facility: [facility] Address: [address] [place] [address] Performed By: #### 2 4356-8 ####DIEGO LABORATORYCLIA [id number] [place] [address] [place] Ketones Ql (U) Negative Normal Negative [facility] Comment on above: Order Comment: Speci men Type: URINE SPECIMENOrdering Facility: [facility] Address: [address] [place] [address] Performed By: #### 2 4356-8 ####DIEGO LABORATORYCLIA [id number] [address] Leukocyte esterase Test strip Ql (U) Negative Normal Negative [facility] Comment on above: Order Comment: Speci men Type: URINE SPECIMENOrdering Facility: [facility] Address: [address] [place] [address] Performed By: #### 2 4356-8 ####DIEGO LABORATORYCLIA [id number] [place] [address] [place] Nitrite Ql (U) Negative Normal Negative [facility] Comment on above: Order Comment: Speci men Type: URINE SPECIMENOrdering Facility: [facility] Address: [address] [place] [address] Performed By: #### 2 4356-8 ####DIEGO LABORATORYCLIA [id number] [address] pH (U) 6.0 [pH] Normal 5.0-8.0 [facility] Comment on above: Order Comment: Speci men Type: URINE SPECIMENOrdering Facility: [facility] Address: [address] [place] [address] Performed By: #### 2 4356-8 ####DIEGO LABORATORYCLIA [id number] [place] [address] [place] Protein (U) [Mass/Vol] Negative Normal Negative [facility] Comment on above: Order Comment: Speci men Type: URINE SPECIMENOrdering Facility: [facility] Address: [address] [place] [address] Performed By: #### 2 4356-8 ####BOSLER LABORATORYCLIA [id number] [place] [address] [place] RBC LM.HPF (Urine sed) [#/Area] 0-3 /HPF Normal 0-3 /HPF [facility] Comment on above: Order Comment: Speci men Type: URINE SPECIMENOrdering Facility: [facility] Address: [address] [place] [address] Performed By: #### 2 4356-8 ####DIEGO LABORATORYCLIA [id number] [place] [address] [place] Specific gravity (U) [Rel density] 1.020 Normal 1.005-1.030 [facility] Comment on above: Order Comment: Speci men Type: URINE SPECIMENOrdering Facility: [facility] Address: [address] [place] [address] Performed By: #### 2 4356-8 ####DIEGO LABORATORYCLIA [id number] [address] [place] Urobilinogen Ql (U) 0.2 EU/dL Normal 0.2-1.0 EU/dL [facility] Comment on above: Order Comment: Speci men Type: URINE SPECIMENOrdering Facility: [facility] Address: [address] [id number] Performed By: #### 2 4356-8 ####BOSLER LABORATORYCLIA [id number] [address] WBC LM.HPF (Urine sed) [#/Area] 0-5 /HPF Normal 0-5 /HPF [facility] Comment on above: Order Comment: Speci men Type: URINE SPECIMENOrdering Facility: [facility] Address: [address] [place], [place] [address] Performed By: #### 2 4356-8 ####BOSLER LABORATORYCLIA [id number] [address] ALLIED HEALTHon 01-03-2024 ALLIED HEALTH HNO ID: [id number] Author: LETICIA HENDRIX RT(Colette) Service: Radiology Author [...] PATIENT PRESENTS WITH AN IMPLANTABLE OR ATTACHED HAUNTED HISTORY TOUR GUIDE: No ALLERGIES: Reviewed and unchanged CONTRAST ALLERGY: [...] Filtration Rate (eGFR) is calculated using the 2021 CKD-EPI creatinine equation. This equation utilizes serum [...] PERIPHERAL IV DATA: Inpatient - refer to [facility] documentation RADIOLOGY DEPARTMENT: CT; Exam(s) Completed: Brain , CTA Abdomen Pelvis, and CTA Chest SIGNATURE: Leticia Hendrix, RT(R) PATIENT NAME: Cyndee Vital DATE: January 03, 2024 TIME: 4:39 AM Normal [facility] CBC W Auto Differential pane l (Bld)on 01-03-2024 Basophils (Bld) [#/Vol] 10*3/uL Normal <0.11 [facility] Comment on above: Order Comment: Speci men Type: BLOOD SPECIMENOrdering Facility: [facility] Address: [address] [place] [address] Performed By: #### 5 7021-8 ####DIEGO LABORATORYCLIA [id number] [place] [address] [place] Basophils/100 WBC (Bld) 0.1 % Normal [facility] Comment on above: Order Comment: Zoilai men Type: BLOOD SPECIMENOrdering Facility: [facility] Address: [address] [place] [address] Performed By: #### 5 7021-8 ####DIEGO LABORATORYCLIA [id number] [place] [address] [place] Differential cell count method Nom (Bld) Auto Normal [facility] Comment on above: Order Comment: Speci men Type: BLOOD SPECIMENOrdering Facility: [facility] Address: [address] [place] [address] Performed By: #### 5 7021-8 ####DIEGO LABORATORYCLIA [id number] [place] [address] [place] Eosinophils (Bld) [#/Vol] 10*3/uL Normal <0.46 [facility] Comment on above: Order Comment: Speci men Type: BLOOD SPECIMENOrdering Facility: [facility] Address: [address] [place] [address] Performed By: #### 5 7021-8 ####DIEGO LABORATORYCLIA [id number] [address] [place] Eosinophils/100 WBC (Bld) 0.0 % Normal [facility] Comment on above: Order Comment: Speci men Type: BLOOD SPECIMENOrdering Facility: [facility] Address: [address] [place] [address] Performed By: #### 5 7021-8 ####DIEGO LABORATORYCLIA [id number] [address] [place] Erythrocyte distribution width (RBC) [Ratio] 13.1 % Normal 11.5-15.0 [facility] Comment on above: Order Comment: Speci men Type: BLOOD SPECIMENOrdering Facility: [facility] Address: [address] [place] [address] Performed By: #### 5 7021-8 ####DIEGO LABORATORYCLIA [id number] [address] Hematocrit (Bld) [Volume fraction] 44.7 % Normal 36.0-46.0 [facility] Comment on above: Order Comment: Speci men Type: BLOOD SPECIMENOrdering Facility: [facility] Address: [address] [place] [address] Performed By: #### 5 7021-8 ####DIEGO LABORATORYCLIA [id number] [address] [place] Hemoglobin (Bld) [Mass/Vol] 15.3 g/dL Normal 11.5-15.5 [facility] Comment on above: Order Comment: Speci men Type: BLOOD SPECIMENOrdering Facility: [facility] Address: [address] [place] [address] Performed By: #### 5 7021-8 ####DIEGO LABORATORYCLIA [id number] [address] [place] Immature granulocytes (Bld) [#/Vol] 0.09 10*3/uL Normal <0.10 [facility] Comment on above: Order Comment: Speci men Type: BLOOD SPECIMENOrdering Facility: [facility] Address: [address] [place] [address] Performed By: #### 5 7021-8 ####DIEGO LABORATORYCLIA [id number] [address] Immature granulocytes/100 WBC (Bld) 0.8 % Normal [facility] Comment on above: Order Comment: Speci men Type: BLOOD SPECIMENOrdering Facility: [facility] Address: [address] [place] [address] Performed By: #### 5 7021-8 ####DIEGO LABORATORYCLIA [id number] [address] Lymphocytes (Bld) [#/Vol] 1.54 10*3/uL Normal 1.00-4.00 [facility] Comment on above: Order Comment: Speci men Type: BLOOD SPECIMENOrdering Facility: [facility] Address: [address] [place] [address] Performed By: #### 5 7021-8 ####DIEGO LABORATORYCLIA [id number] [address] Lymphocytes/100 WBC (Bld) 13.3 % Normal [facility] Comment on above: Order Comment: Speci men Type: BLOOD SPECIMENOrdering Facility: [facility] Address: [address] [place] [address] Performed By: #### 5 7021-8 ####DIEGO LABORATORYCLIA [id number] [address] STATES [facility] MCH (RBC) [Entitic mass] 31.4 pg Normal 26.0-34.0 [facility] Comment on above: Order Comment: Speci men Type: BLOOD SPECIMENOrdering Facility: [facility] Address: [address] [place] [address] Performed By: #### 5 7021-8 ####DIEGO LABORATORYCLIA [id number] [address] [place] MCHC (RBC) [Mass/Vol] 34.2 g/dL Normal 30.5-36.0 [facility] Comment on above: Order Comment: Speci men Type: BLOOD SPECIMENOrdering Facility: [facility] Address: [facility] [place] [address] Performed By: #### 5 7021-8 ####DIEGO LABORATORYCLIA [id number] [address] [place] MCV (RBC) [Entitic vol] 91.8 fL Normal 80.0-100.0 [facility] Comment on above: Order Comment: Speci men Type: BLOOD SPECIMENOrdering Facility: [facility] Address: [address] [place] [address] Performed By: #### 5 7021-8 ####DIEGO LABORATORYCLIA [id number] [address] [place] Monocytes (Bld) [#/Vol] 0.47 10*3/uL Normal <0.87 [facility] Comment on above: Order Comment: Speci men Type: BLOOD SPECIMENOrdering Facility: [facility] Address: [address] [place] [address] Performed By: #### 5 7021-8 ####DIEGO LABORATORYCLIA [id number] [address] Monocytes/100 WBC (Bld) 4.1 % Normal [facility] Comment on above: Order Comment: Speci men Type: BLOOD SPECIMENOrdering Facility: [facility] Address: [address] [place] [address] Performed By: #### 5 7021-8 ####DIEGO LABORATORYCLIA [id number] [place] [address] [place] Neutrophils (Bld) [#/Vol] 9.49 10*3/uL High 1.45-7.50 [facility] Comment on above: Order Comment: Speci men Type: BLOOD SPECIMENOrdering Facility: [facility] Address: [address] [place] [address] Performed By: #### 5 7021-8 ####DIEGO LABORATORYCLIA [id number] [address] [place] Neutrophils/100 WBC (Bld) 81.7 % Normal [facility] Comment on above: Order Comment: Speci men Type: BLOOD SPECIMENOrdering Facility: [facility] Address: [address] [place] [address] Performed By: #### 5 7021-8 ####DIEGO LABORATORYCLIA [id number] [place] [address] [place] Nucleated RBC (Bld) [#/Vol] 10*3/uL Normal <0.01 [facility] Comment on above: Order Comment: Speci men Type: BLOOD SPECIMENOrdering Facility: [facility] Address: [address] [place] [address] Performed By: #### 5 7021-8 ####DIEGO LABORATORYCLIA [id number] [place] [address] [place] Nucleated RBC/100 WBC (Bld) [Ratio] 0.0 /100 WBC Normal [facility] Comment on above: Order Comment: Speci men Type: BLOOD SPECIMENOrdering Facility: [facility] Address: [address] [place] [address] Performed By: #### 5 7021-8 ####DIEGO LABORATORYCLIA [id number] [place] [address] [place] Platelet mean volume (Bld) [Entitic vol] 9.9 fL Normal 9.0-12.7 [facility] Comment on above: Order Comment: Speci men Type: BLOOD SPECIMENOrdering Facility: [facility] Address: [address] [place] [address] Performed By: #### 5 7021-8 ####DIEGO LABORATORYCLIA [id number] [place] [address] [place] Platelets (Bld) [#/Vol] 309 10*3/uL Normal 150-400 [facility] Comment on above: Order Comment: Speci men Type: BLOOD SPECIMENOrdering Facility: [facility] Address: [address] [place] [address] Performed By: #### 5 7021-8 ####DIEGO LABORATORYCLIA [id number] [place] [address] [place] RBC (Bld) [#/Vol] 4.87 10*6/uL Normal 3.90-5.20 [facility] Comment on above: Order Comment: Speci men Type: BLOOD SPECIMENOrdering Facility: [facility] Address: [address] [place], [place] [address] Performed By: #### 5 7021-8 ####DIEGO LABORATORYCLIA [id number] [place] [address] [place] [facility] [place] WBC (Bld) [#/Vol] 11.60 10*3/uL High 3.70-11.00 [facility] Comment on above: Order Comment: Speci men Type: BLOOD SPECIMENOrdering Facility: [facility] Address: [address] [place] [address] Performed By: #### 5 7021-8 ####BOSLER LABORATORYCLIA [id number] [address] CNDSon 01-03-2024 CNDS HNO ID: [id number] Author: ZAC HENAO MD Service: Hospital Medicine [...] Morgan MD Primary Care Provider: Emi Cook APRN.[employer] My Medical Team Members: Treatment Team: Attending [...] to call for appointment?: Yes Emi Cook, OFFICE HELPER.[facility] [phone] [address] [phone] PCP Requested Referral Additional Provider to Provider Information: No notes on file Active Hospital Problems as of 01/03/2024 Noted - Resolved POA Hospital Back pain 01/03/2024 - Present Unknown Resolved Hospital Problems as of 01/03/2024 None Transitions of Care Critical Issues: HENDRIX MEDICATION CHANGES: none LABS AND PROCEDURES PENDING AT DISCHARGE: No pending results. FOLLOW-UP APPOINTMENTS ALREADY SCHEDULED WITH A [facility] PROVID[facility]: No future appointments. ALLERGIES No [...] Provider, RN, Patient I have performed the vnxs-mk-droa and relevant services for a total of < 30 minutes. SIGNATURE: Zac Henao MD DATE: January 03, 2024 TIME: 10:20 AM Normal [facility] CRP SerPl-mCncon 01-03-2024 CRP [Mass/Vol] mg/L Normal <0.9 [facility] Comment on above: Order Comment: Speci men Type: BLOOD SPECIMENOrdering Facility: [facility] Address: [address] [place] [address] Performed By: #### 1 988-5, 2777-1, [id number], 40394-4 ####BOSLER LABORATORYCLIA [id number] [address] [facility] CT BRAIN WO IVCONon 01-03-[address] BRAIN WO IVCON * * *Final Report* * * DATE OF EXAM: Jan 03 2024 4:59AM [facility] [place] / [...] base and imaged soft tissues are unremarkable. Information Technology Professor (topogram) images: No additional findings. IMPRESSION: No acute intracranial abnormality identified Mild chronic intracranial changes as described Clinical Laboratory Service Teacher: TOSIN Transcribe Date/Time: Jan 03 2024 5:23A Dictated by : CHUY DAVIS MD This examination was interpreted and the report reviewed and electronically signed by: CHUY DAVIS MD on Jan 03 2024 5:26AM EST [id number] [facility] CTA ABD/PELV W IVCONon 01-03 CTA ABD/PELV W IVCON * * *Final Report* * * DATE OF EXAM: Jan 03 2024 5:34AM [facility] [place] ABD/PELV W IVCON / [...] Please consider direct visualization as necessary. Diverticulosis Clinical Laboratory Service Teacher: TOSIN Transcribe Date/Time: Jan 03 2024 5:44A Dictated by : SATYA SINGH MD This examination was interpreted and the report reviewed and electronically signed by: SATYA SINGH MD on Jan 03 2024 5:52AM EST [id number] Normal [facility] CTA CHEST (GATED) WO/W IVCON on 01-03-2024 CTA CHEST (GATED) WO/W IVCON * * *Final Report* * * DATE OF EXAM: Jan 03 2024 5:34AM [facility] [place] CT[place] CHEST (GATED) WO/W IVCON [...] Please consider direct visualization as necessary. Diverticulosis Clinical Laboratory Service Teacher: TOSIN Transcribe Date/Time: Jan 03 2024 5:44A Dictated by : SATYA SINGH MD This examination was interpreted and the report reviewed and electronically signed by: SATYA SINGH MD on Jan 03 2024 5:52AM EST [id number] Normal [facility] Comprehensive metabolic 2000 panelon 01-03-2024 Albumin [Mass/Vol] 4.5 g/dL Normal 3.9-4.9 [facility] Comment on above: Order Comment: Jessica shearer Type: BLOOD SPECIMEN [facility] Address: [address] [place] [address] Performed By: #### 3 040-3, 35424-6, 67856-7, 74146-1, [id number] #### [facility] CLIA [id number] [address] [place] [address] [place] ALP [Catalytic activity/Vol] 127 U/L High 34-123 [facility] Comment on above: Order Comment: Jessica shearer Type: BLOOD SPECIMEN [facility] Address: [address] [place] [address] Performed By: #### 3 040-3, 47074-0, 38669-8, 66908-0, [id number] #### [facility] CLIA [id number] [address] [place] [address] [place] ALT [Catalytic activity/Vol] 24 U/L Normal 7-38 [facility] Comment on above: Order Comment: Speci men Type: BLOOD SPECIMEN [facility] Address: [address] [place] [address] Performed By: #### 3 040-3, 25794-6, 01642-3, 91910-6, [id number] #### [facility] CLIA [id number] [address] [place] [address] [place] Anion gap [Moles/Vol] 14 mmol/L Normal 9-18 [facility] Comment on above: Order Comment: Speci men Type: BLOOD SPECIMEN [facility] Address: [address] [place] [address] Performed By: #### 3 040-3, 53343-5, 11557-7, 37926-9, [id number] #### [facility] CLIA [id number] [address] [place] AST [Catalytic activity/Vol] 21 U/L Normal 13-35 [facility] Comment on above: Order Comment: Speci men Type: BLOOD SPECIMEN [facility] Address: [address] [place] [address] Performed By: #### 3 040-3, 07244-0, 81068-7, 90454-3, [id number] #### [facility] CLIA [id number] [address] [place] [address] [place] Bilirubin [Mass/Vol] 0.4 mg/dL Normal 0.2-1.3 [facility] Comment on above: Order Comment: Speci men Type: BLOOD SPECIMEN [facility] Address: [address] [place] [address] Performed By: #### 3 040-3, 39191-1, 42536-3, 95216-8, [id number] #### [facility] CLIA [id number] [address] [place] Calcium [Mass/Vol] 9.4 mg/dL Normal 8.5-10.2 [facility] Comment on above: Order Comment: Speci men Type: BLOOD SPECIMEN [facility] Address: [address] [place] [address] Performed By: #### 3 040-3, 46993-3, 83843-5, 73108-4, [id number] #### [facility] CLIA [id number] [address] [place] [address] [place] Chloride [Moles/Vol] 102 mmol/L Normal 97-105 [facility] Comment on above: Order Comment: Speci men Type: BLOOD SPECIMEN [facility] Address: [address] [place] [address] Performed By: #### 3 040-3, 15674-0, 94910-3, 77432-8, [id number] #### [facility] CLIA [id number] [address] [place] [facility] CO2 [Moles/Vol] 25 mmol/L Normal 22-30 [facility] Comment on above: Order Comment: Speci men Type: BLOOD SPECIMEN [facility] Address: [address] [place] [address] Performed By: #### 3 040-3, 54918-3, 62414-6, 33635-3, [id number] #### [facility] CLIA [id number] [address] [place] Creatinine [Mass/Vol] 0.81 mg/dL Normal 0.58-0.96 [facility] Comment on above: Order Comment: Speci men Type: BLOOD SPECIMEN [facility] Address: [address] [place] [address] Performed By: #### 3 040-3, 18013-5, 37862-3, 35285-7, [id number] #### [facility] CLIA [id number] [address] Creatinine and Glomerular filtration rate.predicted panel (S/P/Bld) 75 mL/min/1.73m??? Normal >=60 [facility] Comment on above: Order Comment: Speci men Type: BLOOD SPECIMEN [facility] Address: [address] [place] [address] Result Comment: Tanja mated Glomerular Filtration Rate [...] actual GFR. Performed By: #### 3 040-3, 22262-6, 69165-5, 39784-6, [id number] #### [facility] CLIA [id number] [address] [place] [address] [place] Glucose [Mass/Vol] 158 mg/dL High 74-99 [facility] Comment on above: Order Comment: Jessica shearer Type: BLOOD SPECIMEN [facility] Address: [address] [place] [address] Result Comment: The [place] [employer] (ADA) provides guidance for cutoff [...] Standards of Medical Care in Diabetes 2016, [place] [employer]. Diabetes Care. 2016.39(Suppl 1). Performed By: #### 3 040-3, 82931-7, 72122-6, 60792-0, [id number] #### [facility] CLIA [id number] [address] [place] [address] [place] Potassium [Moles/Vol] 3.7 mmol/L Normal 3.7-5.1 [facility] Comment on above: Order Comment: Jessica shearer Type: BLOOD SPECIMEN [facility] Address: [address] [place] [address] Performed By: #### 3 040-3, 94649-4, 42508-3, 90353-7, [id number] #### [facility] CLIA [id number] [address] [place] [address] [place] Protein [Mass/Vol] 7.9 g/dL Normal 6.3-8.0 [facility] Comment on above: Order Comment: Speci men Type: BLOOD SPECIMEN [facility] Address: [address] [place] [address] Performed By: #### 3 040-3, 18117-1, 14382-9, 70046-5, [id number] #### [facility] CLIA [id number] [address] [place] [address] [place] Sodium [Moles/Vol] 141 mmol/L Normal 136-144 [facility] Comment on above: Order Comment: Speci men Type: BLOOD SPECIMEN [facility] Address: [address] [place] [address] Performed By: #### 3 040-3, 28504-7, 07302-0, 23332-3, [id number] #### [facility] CLIA [id number] [address] [place] Urea nitrogen [Mass/Vol] 23 mg/dL High 7-21 [facility] Comment on above: Order Comment: Speci men Type: BLOOD SPECIMEN [facility] Address: [address] [place] [address] Performed By: #### 3 040-3, 10937-8, 66758-2, 90190-3, [id number] #### [facility] CLIA [id number] [address] [place] ECG COMPLETEon 01-03-2024 ECG COMPLETE Ventricular Rate : 5 1 BPM Atrial Rate : 51 BPM P-R Interval : 138 ms QRS Duration : 78 ms Q-T Interval : 432 ms QTC Calculation(Bazett) : 398 ms Calculated P [place] : 49 degrees Calculated R [place] : -9 degrees Calculated T [place] : 59 degrees S[address]US [address]CARDIA NONSPECIFIC ST ABNORMALITY ABNORMAL ECG no STEMI Confirmed by MD CAROLANN, ELIEZER.S ([id number]), photograph editor CHUY INFANTE ([id number]) on 01/04/2024 7:14:53 AM NAME : CYNDEE VITAL PID : [id number] : 1945 Gender : Female Race : ORD : [id number] Procedure Date : Jan 03 2024 04:14:58 Edit Date : Jan 04 2024 07:14:56 Diagnosis: SINUS BRADYCARDIA NONSPECIFIC ST ABNORMALITY ABNORMAL ECG no STEMI Confirmed by MD VUONG EDWARD.S ([id number]), photograph editor CHUY INFANTE ([id number]) on 01/04/2024 7:14:53 AM Test Reason : Chest Pain Location : 1 : ER 0203 Overread By : MD VUONG EDWARD.Ari Edited By : CHUY INFANTE Referred By : , Acquired by : [place] [id number], [facility] ED PROV NOTEon 01-03-2024 ED PROV NOTE HNO ID: [id number] Author: ELIEZER VUONG MD Service: Emergency Medicine [...] unspecified abdominal location COVID-19 test performed per [facility] [place] policy for suspected COVID community exposure. MDM [...] the following (more content not included)... Normal [facility] FLUABV+SARS-CoV-2+RSV Pnl Re sp ROSEMARY+probeon 01-03-2024 FLUABV+SARS-CoV-2+RSV Pnl Resp ROSEMARY+probe COVID 19 RESULT: Detected The method used is RT-PCR or an equivalent NAAT method. Reference Range(the expected result in uninfected individuals): Not detected INFLUENZA A PCR: Not detected INFLUENZA B PCR: Not detected RSV PCR: Not detected Abnormal [facility] Comment on above: Performed By: #### 9 5941-1 ####BOSLER LABORATORYCLIA [id number] [place] [address] [place] HIGH SENSITIVITY TROPONIN T (INITIAL)on 01-03-2024 Troponin T.cardiac High sensitivity method [Mass/Vol] 6 ng/L Normal <12 [facility] Comment on above: Order Comment: Speci men Type: BLOOD SPECIMENOrdering Facility: [facility] Address: [address] [place] [address] Result Comment: When assessing risk for acute [...] day MACE. Performed By: #### 3 040-3, 88778-2, 32054-7, 29016-2, [id number] ####[facility] LABORATORYCLIA [id number] [place] [address] [place] HIGH SENSITIVITY TROPONIN T (SECOND)on 01-03-2024 Troponin T.cardiac High sensitivity method [Mass/Vol] 7 ng/L Normal <12 [facility] Comment on above: Order Comment: Speci men Type: BLOOD SPECIMENOrdering Facility: [facility] Address: [address] [place] [address] Result Comment: When assessing risk for acute [...] MACE. Performed By: #### 1 988-5, 2777-1, [id number], ####BOSLER LABORATORYCLIA [id number] [place] [address] [place] Lipase SerPl-cCncon 01-03-20 24 Lipase [Catalytic activity/Vol] 52 U/L Normal 16-61 [facility] Comment on above: Order Comment: Jessica shearer Type: BLOOD SPECIMENOrdering Facility: [facility] Address: [address] [place] [address] Performed By: #### 3 040-3, 85215-6, 46185-2, 86150-2, [id number] ####BOSLER LABORATORYCLIA [id number] [place] [address] [place] Magnesium SerPl-mCncon 01-03 Magnesium [Mass/Vol] 2.0 mg/dL Normal 1.7-2.3 [facility] Comment on above: Order Comment: Zoilai men Type: BLOOD SPECIMENOrdering Facility: [facility] Address: [address] [place] [address] Performed By: #### 1 988-5, 2777-1, [id number], 77440-1 ####BOSLER LABORATORYCLIA [id number] [address] Magnesium [Mass/Vol] 2.2 mg/dL Normal 1.7-2.3 [facility] Comment on above: Order Comment: Jessica shearer Type: BLOOD SPECIMENOrdering Facility: [facility] Address: [address] [place] [address] Performed By: #### 3 040-3, 08350-5, 82406-5, 14458-5, [id number] ####BOSLER LABORATORYCLIA [id number] [address] NT-proBNP [facility] 01-03 Natriuretic peptide.B prohormone N-Terminal [Mass/Vol] 407 pg/mL Normal <450 [facility] Comment on above: Order Comment: Jessica shearer Type: BLOOD SPECIMENOrdering Facility: [facility] Address: [address] [place] [address] Performed By: #### 3 040-3, 23516-8, 73666-4, 72299-9, [id number] ####BOSLER LABORATORYCLIA [id number] [address] PT panel Coag (PPP)on 2023 INR Coag (PPP) [Relative time] 1.0 {INR} Normal 0.9-1.3 [facility] Comment on above: Order Comment: Jessica shearer Type: BLOOD SPECIMENOrdering Facility: [facility] Address: [address] [place] [address] Result Comment: Gege min K Antagonist (VKA) Therapeutic Range: INR 2 to 3 (Target INR of 2.5) Note: For patients treated with VKA drugs, such as warfarin, the [place] [employer] 2012 Guideline recommends [...] Chest 2012, 141:7S-47S Sunshine RA, et al. [facility] 2017, 70: 252-289 Performed By: #### 3 4528-0, 16479-8 ####BOSLER LABORATORYCLIA [id number] [place] [address] [place] PT Coag (PPP) [Time] 10.8 s Normal 9.7-13.0 [facility] Comment on above: Order Comment: Speci men Type: BLOOD SPECIMENOrdering Facility: [facility] Address: [address] [place] [address] Performed By: #### 3 4528-0, 92544-5 ####BOSLER LABORATORYCLIA [id number] [address] Phosphate SerPl-mCncon 01-03 Phosphate [Mass/Vol] 2.9 mg/dL Normal 2.7-4.8 [facility] Comment on above: Order Comment: Speci men Type: BLOOD SPECIMENOrdering Facility: [facility] Address: [address] [place] [address] Performed By: #### 1 988-5, 2777-1, [id number], 62688-3 ####BOSLER LABORATORYCLIA [id number] [address] [facility] Urinalysis complete panel (U )on 01-03-2024 Bilirubin Ql (U) Negative Normal Negative [facility] Comment on above: Order Comment: Speci men Type: URINE SPECIMENOrdering Facility: [facility] Address: [address] [place] [address] Performed By: #### 2 4356-8 ####BOSLER LABORATORYCLIA [id number] [address] [place] Clarity (Unsp spec) Clear Normal Clear [facility] Comment on above: Order Comment: Speci men Type: URINE SPECIMENOrdering Facility: [facility] Address: [address] [place] [address] Performed By: #### 2 4356-8 ####DIEGO LABORATORYCLIA [id number] [place] [address] [place] Color (U) Yellow Normal Yellow [facility] Comment on above: Order Comment: Speci men Type: URINE SPECIMENOrdering Facility: [facility] Address: [address] [place] [address] Performed By: #### 2 4356-8 ####DIEGO LABORATORYCLIA [id number] [place] [address] [place] Glucose Test strip (U) [Mass/Vol] Trace Abnormal Negative [facility] Comment on above: Order Comment: Speci men Type: URINE SPECIMENOrdering Facility: [facility] Address: [address] [place] [address] Performed By: #### 2 4356-8 ####DIEGO LABORATORYCLIA [id number] [place] [address] [place] Hemoglobin Ql (U) Trace Abnormal Negative [facility] Comment on above: Order Comment: Speci men Type: URINE SPECIMENOrdering Facility: [facility] Address: [address] [place] [address] Performed By: #### 2 4356-8 ####DIEGO LABORATORYCLIA [id number] [place] [address] [place] Ketones Ql (U) Negative Normal Negative [facility] Comment on above: Order Comment: Speci men Type: URINE SPECIMENOrdering Facility: [facility] Address: [address] [place] [address] Performed By: #### 2 4356-8 ####DIEGO LABORATORYCLIA [id number] [place] [address] [place] Leukocyte esterase Test strip Ql (U) Negative Normal Negative [facility] Comment on above: Order Comment: Speci men Type: URINE SPECIMENOrdering Facility: [facility] Address: [address] [place] [address] Performed By: #### 2 4356-8 ####DIEGO LABORATORYCLIA [id number] [place] [address] [place] Nitrite Ql (U) Negative Normal Negative [facility] Comment on above: Order Comment: Speci men Type: URINE SPECIMENOrdering Facility: [facility] Address: [address] [place] [address] Performed By: #### 2 4356-8 ####DIEGO LABORATORYCLIA [id number] [address] pH (U) 7.0 [pH] Normal 5.0-8.0 [facility] Comment on above: Order Comment: Speci men Type: URINE SPECIMENOrdering Facility: [facility] Address: [address] [place] [address] Performed By: #### 2 4356-8 ####DIEGO LABORATORYCLIA [id number] [place] [address] [place] Protein (U) [Mass/Vol] Negative Normal Negative [facility] Comment on above: Order Comment: Speci men Type: URINE SPECIMENOrdering Facility: [facility] Address: [address] [place] [address] Performed By: #### 2 4356-8 ####DIEGO LABORATORYCLIA [id number] [place] [address] [place] [facility] RBC LM.HPF (Urine sed) [#/Area] 0-3 /HPF Normal 0-3 /HPF [facility] Comment on above: Order Comment: Speci men Type: URINE SPECIMENOrdering Facility: [facility] Address: [address] [place] [address] Performed By: #### 2 4356-8 ####DIEGO LABORATORYCLIA [id number] [address] [place] Specific gravity (U) [Rel density] 1.010 Normal 1.005-1.030 [facility] Comment on above: Order Comment: Speci men Type: URINE SPECIMENOrdering Facility: [facility] Address: [address] [place] [address] Performed By: #### 2 4356-8 ####DIEGO LABORATORYCLIA [id number] [address] Urobilinogen Ql (U) 0.2 EU/dL Normal 0.2-1.0 EU/dL [facility] Comment on above: Order Comment: Speci men Type: URINE SPECIMENOrdering Facility: [facility] Address: [address] [place] [address] Performed By: #### 2 4356-8 ####DIEGO LABORATORYCLIA [id number] [address] [place] WBC LM.HPF (Urine sed) [#/Area] 0-5 /HPF Normal 0-5 /HPF [facility] Comment on above: Order Comment: Speci men Type: URINE SPECIMENOrdering Facility: [facility] Address: [address] [place] [address] Performed By: #### 2 4356-8 ####DIEGO LABORATORYCLIA [id number] [address] [place] aPTT PPPon 01-03-2024 aPTT Coag (PPP) [Time] 21.9 s Low 23.0-32.4 [facility] Comment on above: Order Comment: Speci men Type: BLOOD SPECIMENOrdering Facility: [facility] Address: [address] [place] [address] Performed By: #### 3 4528-0, 68219-4 ####DIEGO LABORATORYCLIA [id number] [address] [place] NM PET/CT BRAIN PLAQUE IMAGI NGon 09-24-[address] [facility] Patient Instructionson 04-13 Cbx Operator Authentication Interface Message Text Sunscreen Recommendations: Recommend [...] Pure and Simple Zinc oxide Normal [facility] Progress Noteson 04-13-2023 Cbx Operator Authentication Interface Message Text Vitals not obtained per provider's instructions. Patient was identified by name and date of . Dropati Crichlow Why are you seeing the fire engineer (doctor) today? mole What specific location on [...] Use? yes Tobacco Use? no Normal The Smart[employer]ation Interface Message Text ------- HISTORY OF PRESENT [...] by me, Celina Levy MD. Normal [facility] NM PET/CT BRAIN PLAQUE IMAGI NGon 02-19-[address] [facility] Absolute lymphocyte countOrd ered By: Emi Cook on 01-26-2023 Lymphocytes Auto (Unsp spec) [#/Vol] 1.61 10*3/uL 0.83-4.51 [facility] Basophil percentageOrdered B y: Emi Cook on 01-26-2023 Basophils/100 WBC (Bld) 0.6 % 0-1 [facility] Bilirubin [Mass/Vol] 0.50 mg/dL 0.20-1.00 [facility] Comment on above: For patients on eltr ombopag therapy, use of Dimension [place] TBIL is not recommended. Chloride [Moles/Vol] 112 mmol/L 98-107 [facility] Cholesterol [Mass/Vol] 144 mg/dL <200 [facility] Comment on above: <200 mg/dL Desirable 200-240 mg/dL Borderline >240 mg/dL High Risk Eosinophils/100 WBC (Bld) 3.0 % 0-5 [facility] Glucose [Mass/Vol] 107 mg/dL 74-106 [facility] Comment on above: Fasting Glucose resu lt from 100 to 125 mg/dL suggests IMPAIRED HOMEOSTASIS per A.D.A. criteria. Neutrophils (Bld) [#/Vol] 4.5 10*3/uL 2.0-7.7 [facility] Neutrophils/100 WBC (Bld) 63.8 % 47-70 [facility] Potassium [Moles/Vol] 3.6 mmol/L 3.5-5.1 [facility] Protein [Mass/Vol] 7.3 g/dL 6.4-8.2 [facility] Sodium [Moles/Vol] 145 mmol/L 136-145 [facility] Triglyceride [Mass/Vol] 221 mg/dL <199 [facility] Comment on above: The drugs N-Acetylcy steine and Metamizole may falsely depress this assay.Serum Triglycerides Reference Interval Normal <150 mg/dL Borderline high 150 - 199 mg/dL High 200 - 499 mg/dL Very High > or = 500 mg/dL WBC (Bld) [#/Vol] 7.0 10*3/uL 4.4-11.0 [facility] Blood erythrocytes count (nu mber/volume)Ordered By: Emi Cook on 01-26-2023 RBC (Bld) [#/Vol] 4.36 10*6/uL 4.2-5.4 [facility] Blood hemoglobin measurement (mass/volume)Ordered By: Emi Cook on 01-26-2023 Hemoglobin (Bld) [Mass/Vol] 13.4 g/dL 12.0-15.0 [facility] Blood lymphocytes/100 leukoc ytesOrdered By: Emi Cook on 01-26-2023 Lymphocytes/100 WBC (Bld) 23.0 % 19-41 [facility] Blood monocytes/100 leukocyt esOrdered By: Emi Cook on 01-26-2023 Monocytes/100 WBC (Bld) 9.3 % 0-10 [facility] Blood platelet mean volumeOr dered By: Emi Cook on 01-26-2023 Platelet mean volume (Bld) [Entitic vol] 10.8 fL 6.2-12.0 [facility] Determination of erythrocyte mean corpuscular volume (MCV)Ordered By: Emi Cook on 01-26-2023 MCV (RBC) [Entitic vol] 93.6 fL 81-99 [facility] Hematocrit Auto (Bld) [Volum e fraction]Ordered By: Emi Cook on 01-26-2023 Hematocrit (Bld) [Volume fraction] 40.8 % 37-47 [facility] Laboratory - Chemistry and C hemistry - challengeOrdered By: Emi Cook on 01-26-2023 ALP [Catalytic activity/Vol] 102 U/L 45-117 [facility] ALT [Catalytic activity/Vol] 23 U/L 13-56 [facility] CO2 [Moles/Vol] 27.0 mmol/L 21.0-32.0 [facility] Globulin (S) [Mass/Vol] 3.6 g/dL 2.2-4.2 [facility] Urea nitrogen/Creatinine [Mass ratio] 22.0 mg/mg 10-20 [facility] Laboratory - Hematology and Cell countsOrdered By: Emi Cook on 01-26-2023 Erythrocyte distribution width (RBC) [Entitic vol] 46.9 fL 35.1-43.9 [facility] Erythrocyte distribution width (RBC) [Ratio] 13.7 % 11.6-14.6 [facility] Immature granulocytes/100 WBC (Bld) 0.300 % 0.0-0.9 [facility] Comment on above: IG% - Immature Granu locytes (promyelocytes, myelocytes and metamyelocytes) > 1% indicates that a LEFT SHIFT is Present. MCH (RBC) [Entitic mass] 30.7 pg 27.0-32.0 [facility] Nucleated RBC/100 WBC (Bld) [Ratio] 0 % 0-5 [facility] MCHC Auto (RBC) [Mass/Vol]Or dered By: Emi Cook on 01-26-2023 MCHC (RBC) [Mass/Vol] 32.8 g/dL 32-36 [facility] No Panel InformationOrdered By: Emi Cook on 01-26-2023 Vitamin D 25-Hydroxy 12.5 ng/mL [facility] Comment on above: Vitamin D 25(OH) Sta tus Range Deficiency <20 ng/mL (50nmol/L) Insufficiency 20 - 30 ng/mL (50 - 75 nmol/L) Sufficiency 30 - 100 ng/mL (75 - 250 nmol/L) Toxicity >100 ng/mL (>250 nmol/L) Estimated GFR (MDRD) Amer 77 mL/min >60 [facility] Comment on above: GFR Calc Estimated GFR (MDRD) Non-Af Amer 64 mL/min >60 [facility] Comment on above: Non- GFR Calc Platelets bldOrdered By: Ventura Cook on 01-26-2023 Platelets (Bld) [#/Vol] 238 10*3/uL 150-450 [facility] Serum or plasma albumin yahaira urement (mass/volume)Ordered By: Emi Cook on 01-26-2023 Albumin [Mass/Vol] 3.7 g/dL 3.2-5.0 [facility] Serum or plasma albumin/glob ulin mass ratioOrdered By: Emi Cook on 01-26-2023 Albumin/Globulin [Mass ratio] 1.0 {ratio} 0.9-2.4 [facility] Serum or plasma calcium yahaira urement (mass/volume)Ordered By: Emi Cook on 01-26-2023 Calcium [Mass/Vol] 9.3 mg/dL 8.5-10.1 [facility] Serum or plasma cholesterol in HDL measurement (mass/volume)Ordered By: Emi Cook on 01-26-2023 Cholesterol in HDL [Mass/Vol] 68 mg/dL >40 [facility] Comment on above: The drugs N-Acetylcy steine and Metamizole may falsely depress this assay. Reference Range HDL <40 mg/dL Low HDL Cholesterol HDL >or= 60 mg/dL High HDL Cholesterol Serum or plasma cholesterol in VLDL measurement (mass/volume)Ordered By: Emi Cook on 01-26-2023 Cholesterol in VLDL [Mass/Vol] 44 mg/dL 5-40 [facility] Serum or plasma creatinine m easurement (mass/volume)Ordered By: Emi Cook on 01-26-2023 Creatinine [Mass/Vol] 0.91 mg/dL 0.55-1.02 [facility] Comment on above: The validity of the calculated GFR & GFRAA in patients over 70 years has not been determined. Clinical correlation is essential. Serum or plasma low density lipoprotein (LDL) cholesterol measurement (mass/volume)Ordered By: Emi Cook on 01-26-2023 Cholesterol in LDL [Mass/Vol] 32 mg/dL 0-130 [facility] Serum or plasma urea nitroge n measurement (mass/volume)Ordered By: Emi Cook on 01-26-2023 Urea nitrogen [Mass/Vol] 20 mg/dL 7-18 [facility] Thin prep Papanicolaou smear with manual screeningOrdered By: Emi Cook on 01-26-2023 Thin prep Papanicolaou smear with manual screening 17 U/L 15-37 [facility] Thin prep Papanicolaou smear with manual screening 6 5-15 [facility] MRI Brain w/o Contraston MRI Brain w/o Contrast Patient Name: CYNDEE VITAL [facility] ACCESSION EXAM DATE/TIME PROCEDURE ORDERING PROVIDER [id number] 11/11/2021 12:17 EST MRI Brain w/o Contrast MD JONATHAN, GUNJAN CPT code 79018 Reason For Exam (MRI Brain w/o Contrast) [...] Transcribed Date and Time: 11/11/2021 1:28 Normal [facility] Thyroid Stim. Hormoneon 12-0 Thyroid Stim. Hormone 2.135 u[IU]/mL Normal 0.465-4.68 0 [facility] Comment on above: Performed By: #### T SH5, B12 #### [facility] [address] [place] [address] Vitamin B12on 10-14-2021 Cobalamin (Vitamin B12) [Mass/Vol] 256 pg/mL Normal 239-931 [facility] Comment on above: Performed By: #### T SH5, B12 #### [facility] [address] [place] [address] [place] MAMMOGRAM SCREENING BILAT ERAL W/TOMOon 08-19-2021 [place] MAMMOGRAM SCREENING BILATERAL W/DOMINIC ORIGINAL FROM: [facility] [address] [place], [place] [address] PROCEDURE FOR: CYNDEE VITAL [address] [place] [address] Home: PID#: [id number] Exam#: [id number] : 1945 Age: 76 TO: EMI COOK APRN [facility] [address] [place], [place] [address] EXAMINATION: SCREENING DIGITAL BILATERAL MAMMOGRAM WITH TOMOSYNTHESIS, [...] 08/20/2021 9:23:16 AM Ordering Provider: EMI COOK Medical Education Coordinator: HAM RODRIGUEZ RT (R) (M) (CT) letter sent: Normal BI-RADS 1 and 2 Mammogram BI-RADS: 1 Negative Normal [facility] ([place]) Vital Signs Date Time Vital Sign Value Performing Clinician Faci lit 02-23-2025 08:57-0400 Body mass index (BMI) [Ratio] 24.46 kg/m2 Gunjan Castillo MD Work Phone: [facility] [place] 02-23-2025 08:57-0400 Body weight 58.24 kg Gunjan Castillo MD Work Phone: [facility] [place] 02-23-2025 08:57-0400 Diastolic blood pressure 76 mm[Hg] Gunjan Castillo MD Work Phone: [facility] [place] 02-23-2025 08:57-0400 Heart rate 78 /min Gunjan Castillo MD Work Phone: [facility] [place] 02-23-2025 08:57-0400 Systolic blood pressure 121 mm[Hg] Gunjan Castillo MD Work Phone: [facility] [place] 08-25-2024 08:44-0400 Body mass index (BMI) [Ratio] 26.18 kg/m2 Gunjan Castillo MD Work Phone: [facility] 08-25-2024 08:44-0400 Body weight 62.32 kg Gunjan Castillo MD Work Phone: [facility] 08-25-2024 08:44-0400 Diastolic blood pressure 74 mm[Hg] Gunjan Castillo MD Work Phone: [facility] 08-25-2024 08:44-0400 Heart rate 72 /min Gunjan Castillo MD Work Phone: [facility] 08-25-2024 08:44-0400 Systolic blood pressure 119 mm[Hg] Gunjan Castillo MD Work Phone: [facility] 02-25-2024 08:53-0400 Body mass index (BMI) [Ratio] 24.38 kg/m2 Gunjan Castillo MD Work Phone: [facility] 02-25-2024 08:53-0400 Body weight 58.06 kg Gunjan Castillo MD Work Phone: [facility] 02-25-2024 08:53-0400 Diastolic blood pressure 60 mm[Hg] Gunjan Castillo MD Work Phone: [facility] 02-25-2024 08:53-0400 Heart rate 69 /min Gunjan Castillo MD Work Phone: [facility] 02-25-2024 08:53-0400 Systolic blood pressure 94 mm[Hg] Gunjan Castillo MD Work Phone: [facility] 01-26-2024 17:41-0400 Body height 154.94 cm [facility] 01-26-2024 17:41-0400 Body mass index (BMI) [Ratio] 24 kg/m2 [facility] 01-26-2024 17:41-0400 Body temperature 96.3 [degF] [facility] 01-26-2024 17:41-0400 Body weight 57.6 kg [facility] 01-26-2024 17:41-0400 Diastolic blood pressure 80 mm[Hg] [facility] 01-26-2024 17:41-0400 Heart rate 84 /min [facility] 01-26-2024 17:41-0400 Respiratory rate 18 /min [facility] 01-26-2024 17:41-0400 SaO2% (BldA) [Mass fraction] 97 % [facility] 01-26-2024 17:41-0400 Systolic blood pressure 120 mm[Hg] [facility] 12-07-2023 17:43-0500 Body mass index (BMI) [Ratio] 25.1 kg/m2 [facility] 12-07-2023 17:43-0500 Body temperature 96.8 [degF] [facility] 12-07-2023 17:43-0500 Body weight 60.32 kg [facility] 12-07-2023 17:43-0500 Diastolic blood pressure 60 mm[Hg] [facility] 12-07-2023 17:43-0500 Heart rate 64 /min [facility] 12-07-2023 17:43-0500 Respiratory rate 18 /min [facility] 12-07-2023 17:43-0500 SaO2% (BldA) [Mass fraction] 95 % [facility] 12-07-2023 17:43-0500 Systolic blood pressure 98 mm[Hg] [facility] 10-22-2023 14:58-0500 Body mass index (BMI) [Ratio] 24.42 kg/m2 Gunjan Castillo MD Work Phone: [facility] 10-22-2023 14:58-0500 Body weight 58.15 kg Gunjan Castillo MD Work Phone: [facility] 10-22-2023 14:58-0500 Diastolic blood pressure 69 mm[Hg] Gunjan Castillo MD Work Phone: [facility] 10-22-2023 14:58-0500 Heart rate 56 /min Gunjan Castillo MD Work Phone: [facility] 10-22-2023 14:58-0500 Systolic blood pressure 112 mm[Hg] Gunjan Castillo MD Work Phone: [facility] 02-26-2023 15:46-0400 Body mass index (BMI) [Ratio] 21.87 kg/m2 Gunjan Castillo MD Work Phone: [facility] 02-26-2023 15:46-0400 Body temperature 96.6 [degF] Gunjan Castillo MD Work Phone: [facility] 02-26-2023 15:46-0400 Body weight 52.07 kg Gunjan Castillo MD Work Phone: [facility] 02-26-2023 15:46-0400 Diastolic blood pressure 72 mm[Hg] Gunjan Castillo MD Work Phone: [facility] 02-26-2023 15:46-0400 Heart rate 58 /min Gunjan Castillo MD Work Phone: [facility] 02-26-2023 15:46-0400 Systolic blood pressure 112 mm[Hg] Gunjan Castillo MD Work Phone: [facility] 01-26-2023 16:19-0400 Body height 154.94 cm [facility] 01-26-2023 16:19-0400 Body mass index (BMI) [Ratio] 22.8 kg/m2 [facility] 01-26-2023 16:19-0400 Body temperature 97.2 [degF] [facility] 01-26-2023 16:19-0400 Body weight 54.88 kg [facility] 01-26-2023 16:19-0400 Diastolic blood pressure 80 mm[Hg] [facility] 01-26-2023 16:19-0400 Heart rate 87 /min [facility] 01-26-2023 16:19-0400 Respiratory rate 18 /min [facility] 01-26-2023 16:19-0400 SaO2% (BldA) [Mass fraction] 97 % [facility] 01-26-2023 16:19-0400 Systolic blood pressure 120 mm[Hg] [facility] 02-28-2022 15:28-0400 Body height 154.9 cm Marcus Sorensen DO Work Phone: [facility] 02-28-2022 15:28-0400 Body weight 49.9 kg Marcus Sorensen DO Work Phone: [facility] 02-28-2022 15:28-0400 Diastolic blood pressure 58 mm[Hg] Marcus Sorensen DO Work Phone: [facility] 02-28-2022 15:28-0400 Heart rate 58 /min Marcus Sorensen DO Work Phone: [facility] 02-28-2022 15:28-0400 SaO2% (BldA) [Mass fraction] 98 % Marcus Sorensen DO Work Phone: [facility] 02-28-2022 15:28-0400 Systolic blood pressure 112 mm[Hg] Marcus Sorensen DO Work Phone: 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 Faci lity:[facility] Start: 08-29-2025 End: 08-29-2025 Telephone encounter Gunjan Castillo MD Work Phone: [facility] Comment on above: Cancelled Appointmen t (08/31/25) Start: 08-23-2025 Encounter for genera l adult medical examination without abnormal findings Josué BERG [facility] Start: 08-19-2025 ambulatory Emi Cook BEVELING MACHINE OPERATOR Faci lity:[facility] Start: 08-08-2025 ambulatory Josué Mcarthurins OLS Facil ity:[facility] Start: 07-18-2025 ambulatory Josué Last OLS Facil ity:[facility] Start: 06-01-2025 ambulatory Josué Last OLS Facil ity:[facility] Start: 05-30-2025 ambulatory Josué Last OLS Facil ity:[facility] Start: 03-14-2025 ambulatory EMI COOK Facil ity:[facility] Start: 03-14-2025 End: 03-14-2025 Subsequent hospital visit by physician Fredi Lauren Work Phone: Radiology Comment on above: Arrived Start: 03-10-2025 End: 03-10-2025 ambulatory Emi Cook BEVELING MACHINE OPERATOR Facility:[facility] Start: 02-23-2025 End: 03-10-2025 Telephone encounter Gunjan Castillo MD Work Phone: [facility] [place] Start: 02-23-2025 End: 02-23-2025 Subsequent hospital visit by physician Gunjan Castillo MD Work Phone: [facility] Comment on above: Irregular heart rate Start: 02-23-2025 End: 02-23-2025 ambulatory [facility] Start: 02-23-2025 End: 02-23-2025 Office outpatient visit 40 minutes Gunjan Castillo MD [facility] Phone: [facility] Comment on above: 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) (Primary Dx); Irregular heart rate; Primary hypertension Start: 02-23-2025 End: 02-23-2025 [facility] Start: 02-14-2025 End: 02-14-2025 ambulatory EMI COOK Facility:[facility] Start: 02-14-2025 End: 02-14-2025 Subsequent hospital visit by physician Fredi Lauren Work Phone: Radiology Start: 01-24-2025 End: 01-24-2025 Refill Dorothy Kumar MA [facility] Start: 11-19-2024 End: 11-19-2024 Letter encounter Celina Levy MD Work Phone: [facility] Start: 09-29-2024 End: 09-29-2024 ambulatory AMILCAR BRADFORD Facility:[facility] Start: 09-29-2024 End: 09-29-2024 Patient encounter procedure Emi Cook OFFICE HELPER.CHRISTIAN SCIENCE HEALER Work Phone: [facility] Start: 09-29-2024 End: 09-29-2024 Subsequent hospital visit by physician [facility] Comment on above: Examination of parti cipant or control in clinical research [Z00.6] Start: 09-29-2024 End: 09-29-2024 ambulatory AMILCAR BRADFORD Facility:[facility] Start: 09-29-2024 Patient encounter procedure AMILCAR BRADFORD [facility] Start: 09-21-2024 End: 09-21-2024 ambulatory Eim Cook BEVELING MACHINE OPERATOR Facility:[facility] Start: 09-19-2024 End: 09-19-2024 Telephone encounter Amilcar Bradford MD, PhD Work Phone: Molecular Imaging Comment on above: Returning Patient's Call Start: 09-14-2024 End: 09-15-2024 Orders Only mAilcar Bradford MD, PhD Work Phone: Molecular Imaging Comment on above: Examination of parti cipant or control in clinical research (Primary Dx) Start: 09-14-2024 End: 09-15-2024 Patient encounter procedure Amilcar Bradford MD, PhD Work Phone: [facility] Start: 08-30-2024 End: 08-30-2024 Emergency department patient visit EMI COOK Facility:[facility] Start: 08-25-2024 End: 08-25-2024 Office outpatient visit 25 minutes Gunjan Castillo MD Work Phone: [employer] Comment on above: Alzheimer's dementia with behavioral disturbance (HCC) (Primary Dx) Start: 08-14-2024 End: 08-14-2024 Letter encounter [facility] Start: 07-22-2024 End: 07-22-2024 Refill Gunjan Castillo MD Work Phone: [facility] Comment on above: Depression, unspecif ied depression type Start: 05-10-2024 End: 05-10-2024 ambulatory EMI COOK Facility:[facility] Start: 04-26-2024 End: 04-26-2024 ambulatory AMILCAR BRADFORD Facility:[facility] Start: 04-26-2024 End: 04-26-2024 ambulatory AMILCAR BRADFORD Facility:[facility] Start: 04-26-2024 End: 04-26-2024 Patient encounter procedure Emi Cook OFFICE HELPER.CHRISTIAN SCIENCE HEALER Work Phone: [facility] Start: 04-26-2024 End: 04-26-2024 Subsequent hospital visit by physician Petct4 Work Phone: Molecular Imaging Comment on above: Examination of parti cipant or control in clinical research [Z00.6] Start: 04-18-2024 Telephone encounter Amilcar Bradofrd MD, PhD Work Phone: Molecular Imaging Comment on above: Returning Patient's Call Start: 04-15-2024 Orders Only Amilcar naqvi MD, PhD Work Phone: Molecular Imaging Comment on above: Examination of parti cipant or control in clinical research (Primary Dx) Start: 04-15-[address] arun Bradford MD, PhD Work Phone: [facility] Start: 04-14-2024 Orders Only Amilcar naqvi MD, PhD Work Phone: Neurology Comment on above: Examination of parti cipant or control in clinical research (Primary Dx) Start: 04-14-[address] arun Bradford MD, PhD Work Phone: [facility] Start: 04-13-2024 Orders Only Amilcar naqvi MD, PhD Work Phone: Radiology Comment on above: Examination of parti cipant in clinical trial (Primary Dx) Start: 04-13-[address] arun Bradford MD, PhD Work Phone: [facility] Start: 02-25-2024 End: 02-25-2024 Office outpatient visit 40 minutes Gunjan Castillo MD Work Phone: [facility] Geriatrics Comment on above: Alzheimer's dementia with behavioral disturbance (HCC) (Primary Dx) Start: 02-01-2024 End: 02-01-2024 Patient encounter procedure [facility] Work Phone: [facility] Start: 02-01-2024 End: 02-01-2024 Subsequent hospital visit by physician [facility] Work Phone: Radiology Comment on above: Examination for norm al comparison or control in clinical research [Z00.6] Start: 01-26-2024 End: 01-26-2024 ambulatory [facility] Work Phone: Start: 01-26-2024 End: 01-26-2024 Patient encounter procedure Wolfgang Sagastume Neurology Comment on above: Examination for norm al comparison or control in clinical research (Primary Dx) Start: 01-25-2024 ambulatory Roxann Collins RN [facility] Start: 01-25-2024 Patient encounter procedure Roxann Collins RN [facility] Start: 01-25-2024 Telephone encounter Gujnan ferraro MD Work Phone: [facility] Geriatric[facility] Start: 01-13-2024 End: 01-13-2024 Emergency department patient visit SHAKILA ZAVALETAKAM Facility:[facility] Start: 01-03-2024 End: 01-03-2024 Evaluation and management of inpatient EMI COOK Facility:[facility] Start: 12-28-2023 Refill Monica Ahn [facility] Start: 10-22-2023 End: 10-22-2023 Office outpatient visit 40 minutes Gunjan Castillo MD Work Phone: [facility] Geriatrics Comment on above: Alzheimer's [...] 07-03-2023 Refill Gunjan goetz MD Work Phone: [facility] Geriatrics Comment on above: Depression, unspecif ied depression type Start: 04-13-2023 End: 04-13-2023 ambulatory UNKNOWN PROVIDER Facility:[facility] Start: 04-13-2023 End: 04-13-2023 Office outpatient new 20 minutes Celina Levy MD Work Phone: [facility] Dermatology Comment on above: Seborrheic keratoses (Primary Dx); Ephelides; Lentigines; Multiple nevi Start: 02-26-2023 End: 02-26-2023 Office outpatient visit 40 minutes Gunjan Castillo MD Work Phone: [facility] Geriatrics Comment on above: Alzheimer's dementia without behavioral disturbance (HCC) (Primary Dx); Depression, unspecified depression type Start: 02-19-2023 Telephone encounter Amilcar Bradford MD, PhD Work Phone: Molecular Imaging Comment on above: NM RESEARCH Cancelled Appointmen t (Cancel and reschedule ) Start: 02-19-2023 End: 02-19-2023 Patient encounter procedure Emi Cook APRN.CHRISTIAN SCIENCE HEALER Work Phone: Molecular Imaging Start: 02-19-2023 End: 02-19-2023 Subsequent hospital visit by physician [facility] Comment on above: Examination for norm al comparison or control in clinical research [Z00.6] Start: 01-26-2023 End: 01-26-2023 [facility] Work Phone: Start: 01-26-2023 End: 01-26-2023 Patient encounter procedure [facility], Specimen Start: 01-21-2023 Patient encounter procedure Wolfgang gaston Neurology Comment on above: Examination for norm al comparison or control in clinical research (Primary Dx) Start: 08-22-2022 ambulatory Yoselyn Damon [facility] Start: 08-22-2022 End: 08-22-2022 Subsequent hospital visit by physician Yoselyn Paez APRN - CHRISTIAN SCIENCE HEALER [facility] Start: 02-28-2022 End: 02-28-2022 Patient encounter procedure Marcus Sorensen DO Work Phone: Cardiology Comment on above: PSVT (paroxysmal sup raventricular tachycardia) (HCC) (Primary Dx); PVC (premature ventricular contraction); Pure hypercholesterolemia Start: 02-17-2022 ambulatory UNKNOWN PROVIDER [facility] Start: 11-18-2021 ambulatory UNKNOWN PROVIDER [facility] Start: 10-28-2021 ambulatory UNKNOWN PROVIDER [facility] Start: 10-14-2021 ambulatory UNKNOWN PROVIDER [facility] Start: 08-19-2021 End: 08-19-2021 Patient encounter procedure EMI COOK OFFICE HELPER-CHRISTIAN SCIENCE HEALER [facility] Procedures Date Procedure Procedure Detail Performing Clinician [...] Sorensen DO Work Phone: H/O: hysterectomy EMI CUEVAS JEAN MARIE OFFICE HELPER-CHRISTIAN SCIENCE HEALER Plan of Treatment Date Care Activity Detail Author Start: 08-30-2027 Diabetes Screening Diabetes Screenin g [facility] Start: 01-12-2027 Diabetes Screening Diabetes Screenin g [facility] Start: 08-31-2025 End: 08-31-2025 Patient encounter procedure 08/31/2025 9:00 AM EDT Office Visit [facility] [place] [address] Gunjan Castillo MD [address] [address] [facility] [place] Start: 08-25-2025 Depression [facility] Start: 07-10-2025 COVID-19 Vaccine ( season) COVID-19 Vaccine ( season) [facility] Start: 07-10-2025 Influenza vaccination S [facility] Start: 04-11-2025 End: 04-11-2025 Patient encounter procedure 04/11/2025 9:30 AM EDT Appointment Radiology [address] [place] [id number]/ Prothena [id number] professional [id number] MR Radiology Comment on above: SA442 [address] 103/ Prothena [id number] professional [id number] MR Start: 02-23-2025 Depression [facility] Start: 02-23-2025 End: 02-23-2025 Patient encounter procedure 02/23/2025 9:00 AM EDT [facility] [address] [place] [phone] Gunjan Castillo MD [address] [place] [id number] [facility] Start: 11-09-2024 Advance Directive Discussion Advance Directive Discussion [facility] Start: 11-09-2024 Medicare Advantage Annual Wellness Visit Medicare Advantage Annual Wellness Visit [facility] Start: 10-07-2024 LIPID SCREEN LIPID SCREEN [facility] Start: 09-29-2024 End: 09-29-2024 Patient encounter procedure [facility] Comment on above: NM PET/CT BRAIN PLAQ [facility] Start: 09-29-2024 End: 09-29-2024 Patient encounter procedure 09/29/2024 12:30 PM EST Office Visit Radiology [address] [address] Direct pt.to MRI U15 desk Radiology Comment on above: Direct pt.to MRI U15 desk Start: 08-26-2024 Depression Monitoring Depression Mon itoring [facility] Start: 08-26-2024 Depresssion Monitoring Depresssion M [facility] Start: 08-25-2024 End: 08-25-2024 Patient encounter procedure [facility] Start: 07-10-2024 COVID-19 Vaccine ( season) COVID-19 Vaccine () [facility] Start: 07-10-2024 COVID-19 Vaccine () COVID-19 Vaccine () [facility] Start: 07-10-2024 Covid-19 Vaccine () Covid-19 Vaccine () [facility] Start: 07-10-2024 Influenza vaccination S [facility] Start: 04-26-2024 End: 04-26-2024 Patient encounter procedure [facility] Comment on above: NM PET/CT BRAIN PLAQ [facility] Start: 04-22-2024 Depresssion Monitoring Depresssion M [facility] Start: 04-19-2024 End: 04-19-2024 Patient encounter procedure 04/19/2024 9:30 AM EDT Office Visit Radiology [address] [place] [address] Research [id number] Subject [id number] Day 162 MRI Radiology Comment on above: Research [id number] Subject [id number] Day 162 MRI Start: 02-25-2024 End: 02-25-2024 Patient encounter procedure 02/25/2024 8:45 AM EDT Office Visit [facility] Geriatrics [facility] [place] [address] Gunjan Castillo MD [address] [address] [facility] Start: 01-26-2024 5,10-methylenetetrah ydr ofolate reductase gene analysis [facility] Start: 11-09-2023 Advance Directive Discussion Advance Directive Discussion [facility] Start: 11-09-2023 Behavioral Health Screening Behavioral Health Screening [facility] Start: 11-09-2023 Depression Assessment Depression Ass essment [facility] Start: 11-09-2023 Medicare Advantage Annual Wellness Visit Medicare Advantage Annual Wellness Visit [facility] Start: 10-22-2023 End: 10-22-2024 Cobalamin (Vitamin B12) [Mass/volume] in Serum or Plasma Vitamin B12 Lab Routine Vitamin B12 deficiency Expected: 10/22/2023 (Approximate), Expires: 10/22/2024 [facility] Work Phone: Comment on above: Expected: 10/22/2023 (Approximate), Expires: 10/22/2024 Start: 08-28-2023 Depresssion Monitoring Depresssion M onitoring [facility] Start: 07-10-2023 COVID-19 Vaccine () COVID-19 Vaccine () [facility] Start: 07-10-2023 Covid-19 Vaccine () Covid-19 Vaccine () [facility] Start: 07-10-2023 Influenza vaccination C [facility] Start: 02-17-2023 Depression Monitoring Depression Mon itoring [facility] Start: 11-09-2022 ADVANCE DIRECTIVE DISCUSSION ADVANCE DIRECTIVE DISCUSSION [facility] Start: 11-09-2022 DEPRESSION ASSESSMENT DEPRESSION ASS ESSMENT [facility] Start: 10-07-2022 DIABETES SCREEN DIABETES SCREEN [facility] Start: 10-07-2022 Diabetes Screening Diabetes Screenin g [facility] Start: 07-10-2022 Influenza vaccination C [facility] Start: 06-09-2022 Influenza vaccination Flu vaccine (# 1) [facility] Start: 11-30-2021 COVID-19 VACCINE (4 - Booster for Pfizer series) COVID-19 VACCINE (4 - Booster for Pfizer series) [facility] Start: 11-30-2021 Covid-19 Vaccine (4 - Pfizer series) Covid-19 Vaccine (4 - Pfizer series) [facility] Start: 11-09-2021 ADVANCE DIRECTIVE DISCUSSION ADVANCE DIRECTIVE DISCUSSION [facility] Start: 10-14-2021 Annual Wellness Visi t (AWV) Annual Wellness Visit (AWV) [facility] Start: 2021 RSV Immunization for Adults (1 - 1-dose 75+ series) RSV Immunization for Adults (1 - 1-dose 75+ series) [facility] Start: 2021 RSV Vaccine (1 - 1-d ose 75+ series) RSV Vaccine (1 - 1-dose 75+ series) [facility] Start: 2021 RSV Vaccine (75+ years) RSV Vaccine (75+ years) [facility] Start: 2021 RSV vaccine (adult) (1 - 1-dose 75+ series) RSV vaccine (adult) (1 - 1-dose 75+ series) [facility] Start: 10-06-2020 Adult depression screening assessment DEPRESSION SCREENING [facility] Start: 2011 BONE DENSITY BONE DENSITY [facility] Start: 2011 Bone Density Screening Bone Density Screening [facility] Start: 2011 Pneumococcal 65+ yea rs Vaccine (1 - PCV) Pneumococcal 65+ years Vaccine (1 - PCV) [facility] Start: 2011 Pneumococcal vaccination [facility] Start: 2011 Pneumococcal Vaccine : 65+ (1 - PCV) Pneumococcal Vaccine: 65+ (1 - PCV) [facility] Start: 2011 Pneumococcal Vaccine : 65+ (1 of 1 - PCV) Pneumococcal Vaccine: 65+ (1 of 1 - PCV) [facility] Start: 2011 Pneumococcal Vaccine : 65+ Years (1 - PCV) Pneumococcal Vaccine: 65+ Years (1 - PCV) [facility] Start: 2011 Pneumococcal Vaccine : 65+ Years (1 of 1 - PCV) Pneumococcal Vaccine: 65+ Years (1 of 1 - PCV) [facility] Start: 2011 PNEUMOCOCCAL: 65+ (1 - PCV) PNEUMOCOCCAL: 65+ (1 - PCV) [facility] Start: 2011 PNEUMOVAX AGE 65 AND OVER WITH 5YR LOOKBACK (#1) PNEUMOVAX AGE 65 AND OVER WITH 5YR LOOKBACK (#1) [facility] Start: 2011 Screening for osteoporosis [facility] Start: 2006 Hepatitis B (HBV) Vaccine (optional start 60+ years) Hepatitis B (HBV) Vaccine (optional start 60+ years) [facility] Start: 2006 RSV Immunization age d 60 or older (1 - 1-dose 60+ series) RSV Immunization aged 60 or older (1 - 1-dose 60+ series) [facility] Start: 2006 RSV Vaccine (1 - 1-d ose 60+ series) RSV Vaccine (1 - 1-dose 60+ series) [facility] Start: 2001 Screening for osteoporosis DEXA (modify frequency per FRAX score) [facility] Start: 1996 Pneumococcal vaccination Pneumococcal Vaccine(s) (50+ yrs) (1 of 1 - PCV) [facility] Start: 1996 Pneumococcal Vaccine : 50+ (1 of 1 - PCV) Pneumococcal Vaccine: 50+ (1 of 1 - PCV) [facility] Start: 1996 Pneumococcal Vaccine : 50+ Years (1 of 1 - PCV) Pneumococcal Vaccine: 50+ Years (1 of 1 - PCV) [facility] Start: 1996 Shingles (RZV) Vacci ne (1 of 2) Shingles (RZV) Vaccine (1 of 2) [facility] Start: 1996 Shingles vaccine (1 of 2) Shingles vaccine (1 of 2) [facility] Start: 1996 SHINGRIX VACCINE (1 of 2) SHINGRIX VACCINE (1 of 2) [facility] Start: 1996 Zoster Vaccines (1 o f 2) Zoster Vaccines (1 of 2) [facility] Start: 1991 COLOGUARD (FIT-DNA) COLOGUARD (FIT-D NA) [facility] Start: 1991 Colonoscopy COLONOSCOPY [facility] Start: 1991 COLORECTAL CANCER SCREENING COLORECTAL CANCER SCREENING [facility] Start: [address] COLONOGRAPHY [facility] Start: 1991 FECAL OCCULT BLOOD FECAL OCCULT BLOO D [facility] Start: 1991 SIGMOIDOSCOPY SIGMOIDOSCOPY [facility] Start: 1965 DTaP/Tdap/Td vaccine (1 - Tdap) DTaP/Tdap/Td vaccine (1 - Tdap) [facility] Start: 1965 DTaP/Tdap/Td Vaccine s (1 - Tdap) DTaP/Tdap/Td Vaccines (1 - Tdap) [facility] Start: 1965 Hepatitis A (HAV) Vaccine (optional start 19+ years) Hepatitis A (HAV) Vaccine (optional start 19+ years) [facility] Start: 1965 Urine microalbumin profile [facility] Start: 1964 Anxiety Screening Anxiety Screening [facility] Start: 1964 Depression Screening Depression Scre ening [facility] Start: 1964 Diabetes mellitus screening Diabetes Screening [facility] Start: 1964 HEPATITIS C SCREENING HEPATITIS C SC ALLIE [facility] Start: 1964 Hepatitis C screening S [facility] Start: 1964 Tetanus + diphtheria + acellular pertussis vaccine (product) Tdap Booster [facility] Start: 1956 Lipid panel Lipids [facility] Start: 1946 COVID-19 Vaccine (#1) COVID-19 Vacci ne (#1) [facility] Start: 1946 Hepatitis B Vaccines (1 of 3 - 3-dose series) Hepatitis B Vaccines (1 of 3 - 3-dose series) [facility] Start: 1946 Lipid panel Lipid Panel [facility] Start: 1946 Medicare Advantage Annual Wellness Visit (AWV) Medicare Advantage Annual Wellness Visit (AWV) [facility] Start: 1946 Screening for osteoporosis Bone Density Scan [facility] 5,10-methylenetetrah ydr ofolate reductase gene analysis [facility] ECG 12 lead ECG 12 lead CV E CG Routine Irregular heart rate 02/23/2025 9:57 AM EDT [facility] Work Phone: End: 02-28-2023 ECG COMPLETE ECG COMPLETE ECG Routine PSVT (paroxysmal supraventricular tachycardia) (HCC) 1 Occurrences starting 02/28/2022 until 02/28/2023 [facility] Work Phone: Comment on above: 1 Occurrences starti ng 02/28/2022 until 02/28/2023 End: 02-24-2025 MR Brain WO contrast MRI BRAIN WO IVCON Radiology Routine Examination for normal comparison or control in clinical research 1 Occurrences starting 01/27/2024 until 02/24/2025 [facility] Work Phone: Comment on above: 1 Occurrences starti ng 01/27/2024 until 02/24/2025 End: 02-20-[address] for attenuation limited area NM PET/CT BRAIN [facility] Radiology Routine Examination for normal comparison or control in clinical research 1 Occurrences starting 01/22/2023 until 02/20/2024 [facility] Work Phone: Comment on above: 1 Occurrences starti ng 01/22/2023 until 02/20/2024 End: 05-15-2025 PET+CT Brain for amyloidosis NM PET/CT BRAIN [facility] Radiology Routine Examination of participant or control in clinical research 1 Occurrences starting 04/16/2024 until 05/15/2025 [facility] Work Phone: Comment on above: 1 Occurrences starti ng 04/16/2024 until 05/15/2025 PET+CT Brain for amyloidosis NM PET/CT BRAIN [facility] IMAG[facility] Radiology Routine Examination of participant or control in clinical research 04/26/2024 3:31 PM EDT [facility] Work Phone: End: 10-14-2025 PET+CT Brain for amyloidosis NM PET/CT BRAIN [facility] IMAG[facility] Radiology Routine Examination of participant or control in clinical research 1 Occurrences starting 09/15/2024 until 10/14/2025 [facility] Work Phone: Comment on above: 1 Occurrences starti ng 09/15/2024 until 10/14/2025 PET+CT Brain for amyloidosis NM PET/CT BRAIN [facility] IMAGING Radiology Routine Examination of participant or control in clinical research 09/29/2024 3:39 PM EST [facility] Work Phone: [facility] Immunizations Immunization Date Immunization Notes Care Provider Kenroy hernandez 09-23-2007 influenza virus vacc ine, unspecified formulation [facility] Work Phone: [facility] Payers Date Payer Category Payer Medicare [id number] 2024 Medicare [id number] 2024 Self-pay [id number] 2022 Commercial Indemnity COMMERCIAL INSURANCE - OTHER Member Subscriber Plan / Payer (Effective 2022-Present) Name: Cyndee Vital Relation to Subscriber: Self Name: Cyndee Vital Payer ID: Not on file Group ID: Not on file Type: Indemnity Address: [address] [place] [address] [id number] 11-09-2022 Medicare HMO [id number] 11-09-2022 Private Health Insurance [id number] 11-09-2022 Unknown COMMERCIAL INSUR ANCE - OTHER COMMERCIAL INSURANCE OTHER [id number] 11/09/2022-Present [address] [place] [address] Indemnity [id number] 11-09-2020 Medicare UHC [facility]AR [facility] AAR MEDICARE HMO [id number] 11/09/2020-Present [phone] [address] [address] [place] [address] HMO [id number] 11-09-2020 Medicare [id number] 11-09-2020 Medicare [id number] 05-09-2011 Medicare MEDICARE PART A B [id number] 1945 Unknown [id number] .668 1945 Unknown [id number] 2.16.840.1.843240.3.579.2 .668 1945 Unknown [id number] .668 1945 Unknown [id number] 2.16.840.1.524368.3.579.2 .668 1945 Unknown [id number] 2.16.840.1.358701.3.579.2 .8 1945 Unknown [id number] 2.16.840.1.493024.3.579.2 .732 Private Health Insurance Private Health Insurance [employer] [facility] [facility] [id number] Unknown AARP [id number] Unknown PHYSICIAN M[employer] INS CO [id number] Unknown [id number] [id number] .462 Unknown [id number] 2.16.840.1.179217.3.579.2 .462 Unknown [id number] 2.16.840.1.421466.3.579.2 .462 Unknown [id number] 2.16.840.1.482906.3.579.2 .462 Unknown [id number] 2.16.840.1.723085.3.579.2 .462 Unknown [id number] 2.16.840.1.825491.3.579.2 .462 Unknown [id number] .462 Unknown [id number] .462 Social History Date Type Detail Facility Start: 10-06-2019 End: 01-13-2024 Never smoked tobacco (finding) [facility] Start: 1945 Sex Assigned At Female [facility] Start: 10-06-2019 End: 01-13-2024 Tobacco use and exposure Smokeless tobacco non-user [facility] Start: 02-28-2022 End: 08-30-2024 Alcohol intake Current drinker of alcohol (finding) [facility] Start: 10-06-2019 History SDOH Alcohol Frequency [address] [facility] Start: 10-06-2019 History SDOH Alcohol Std Drinks [address] [facility] Start: 10-06-2019 History SDOH Alcohol Comment occasional [facility] Start: 1945 Sex Assigned At Not on file [facility] Start: 08-12-2022 End: 02-26-2023 Exposure to SARS-CoV-2 (event) Not sure [facility] Start: 12-21-2020 End: 08-31-2023 Tobacco smoking status NHIS Unknown if ever smoked [facility] Start: 02-26-2023 End: 02-23-2025 Alcohol intake Ex-drinker (finding) [facility] Start: 02-26-2023 End: 02-20-2025 Alcohol intake [facility] Start: 02-26-2023 End: 02-20-2025 Gender identity Not on file [facility] Start: 02-18-2023 Gender identity Identifies as female gender (finding) [facility] Start: 02-18-2023 Sexual orientation Heterosexual (finding) [facility] How often to you hav e a drink containing alcohol? Monthly or less [facility] Work Phone: How many standard dr inks containing alcohol do you have on a typical day? 1 or [address] [facility] Work Phone: How often do you hav e 6 or more drinks on 1 occasion? Never [facility] Work Phone: PHQ2 Score 0 [facility] Start: 06-09-2022 End: 11-04-2022 Sex Female (finding) [facility] Has the [employer], or [employer] threatened to shut off services in your home in past 12Mo No [facility] Do you belong to any clubs or organizations such as nondenominational groups, unions, fraternal or athletic groups, or school groups? Yes [facility] Are you now , , , , never or living with a partner? [facility] How hard is it for y ou to pay for the very basics like food, housing, medical care, and heating Somewhat hard [facility] Do you feel stress - tense, restless, nervous, or anxious, or unable to sleep at night because your mind is troubled all the time - these days [OSQ] To some extent [facility] How often do you nee d to have someone help you when you read instructions, pamphlets, or other written material from your doctor or pharmacy [SILS] Always [facility] Functional Status Date Assessment Result Facility 01-03-2024 Are you deaf, or do you have serious difficulty hearing No 01/03/2024 10:37 AM Tyra Patiño RN No [facility] 01-03-2024 Are you blind, or do you have serious difficulty seeing, even when wearing glasses No 01/03/2024 10:37 AM Tyra Patiño, PAULETTE No [facility] 01-03-2024 Do you have serious difficulty walking or climbing stairs No 01/03/2024 10:37 AM Tyra Patiño RN No [facility] 01-03-2024 Do you have difficul ty dressing or bathing No 01/03/2024 10:37 AM Tyra Patiño, PAULETTE No [facility] 01-03-2024 Because of a physica l, mental, or emotional condition, do you have difficulty doing errands alone such as visiting a physician's office or shopping Yes 01/03/2024 10:37 AM Tyra Patiño, PAULETTE Yes [facility] Mental Status Date Assessment Result Facility 01-03-2024 Because of a physica l, mental, or emotional condition, do you have serious difficulty concentrating, remembering, or making decisions Yes 01/03/2024 10:37 AM Tyra Patiño, PAULETTE Yes [facility] Clinical Notes 10-06-2019 to 08-29-2025 Telephone Encounter - Gunjan Castillo MD - 08/29/2025 5:43 PM EDTTelephone Encounter - Gunjan Castillo MD - 08/29/2025 5:43 PM EDTTelephone Encounter - Roxann Howard - 08/29/2025 2:33 PM EDT Note Date & Type Note Facility 08-29-2025 Telephone encounter Note Noted Thank you [facility] 08-29-2025 Miscellaneous Notes Noted Thank you Cancelled. Name of caller: Elizabeth Contact phone number: [phone] Relationship to Patient: daughter Provider: Jonathan Practice: [facility] Chief Complaint/Reason for Call: Elizabeth called to cancel pt appt on 08/31/25, she is in [facility]. Best time of day caller can be reached: any Patient advised that office/PCP has 24-48 business hours to return their call: N/A documented in this encounter [facility] 08-29-2025 Telephone encounter Note Cancelled. [facility] 08-29-2025 Telephone encounter Note Name of caller: Elizabeth Contact phone number: [phone] Relationship to Patient: daughter Provider: Jonathan Practice: [facility] Chief Complaint/Reason for Call: Elizabeth called to cancel pt appt on 08/31/25, she is in [facility]. Best time of day caller can be reached: any Patient advised that office/PCP has 24-48 business hours to return their call: N/A [facility] 02-24-2025 Note Sinus rhythm Ventricular premature complex Abnormal R-wave progression, early transition No previous ECG available for comparison Electronically Signed On 02-24-2025 10:47:30 EDT by Fabricio [facility] 02-24-2025 Note IMPRESSION: Sinus rhythm Ventricular premature complex Abnormal R-wave progression, early transition No previous ECG available for comparison Electronically Signed On 02-24-2025 10:47:30 EDT by Fabricio [facility] 02-23-2025 Telephone encounter Note Requested papers were signed by Dr Castillo and faxed to [phone]. [facility] 02-23-2025 Miscellaneous Notes Requested papers were signed by Dr Castillo and faxed to [phone]. Thanks! Patient will be moving into [facility]. They need the following per daughter: -History and Physical -Face Sheet -Med List -Progress Notes -Discharge orders ( statement from the physician recommending Halfway Care Placement) They could be sent by email or fax to [email or web address] F: [phone]" Can you print out today's note, today's letter, a facesheet, and a medication list? Once I sign the note/letter, then this can be faxed to [facility]. Thanks! I spoke to Elizabeth and [...] correct [place] [facility] [place] documented in this encounter [facility] 02-23-2025 Telephone encounter Note Thanks! Patient will be moving into [facility]. They need the following per daughter: -History and Physical -Face Sheet -Med List -Progress Notes -Discharge orders ( statement from the physician recommending Halfway Care Placement) They could be sent by email or fax to [email or web address] F: [phone]" Can you print out today's note, today's letter, a facesheet, and a medication list? Once I sign the note/letter, then this can be faxed to [facility]. Thanks! [facility] 02-23-2025 Telephone encounter Note I spoke to Elizabeth and she said it was recently changed to: 25 mg at 10:00 am, 25 mg at 2:00 pm, 50 mg at 5:00 pm and 50 mg at 8:00 pm [facility] 02-23-2025 Telephone encounter Note Can you call and confirm the quetiapine (Seroquel) dosing with daughter Elizabeth? We have the dose as 50 mg at lunch, 50 mg at 4 pm, and 100 mg at 8 pm. I want to make sure it is correct on the Med [place] for the [place] [facility] [place] [facility] 02-23-2025 History of Present illness Narrative Images from the original note were not included. [facility] [address] [address] [facility] [address] Dept: [phone] Dept Loc: [phone] Visit type: [facility] Follow Up Visit Reason for Visit: Memory [...] -Plan is for patient to move into [facility] unit. I agree that she is appropriate for halfway care placement at this time due to Alzheimer's Disease. Needs 01/06 supervision due wandering risk. Needs medication administration [...] Disease, hypertension, depression who presents to the [facility] for a follow-up visit. The patient is [...] for sleep as well. MMSE 11/07 Received [employer] message from the family: Patient will be moving into a memory care unit at [facility]. Will do the H and P [...] "wants to escape"). 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 -Sleep: Better now. -Appetite: Still eats well. 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 Activities: watches tv, spends time with cat >>02/17/22 just went on vacation, walks in [place], plays cards, plays piano, visiting friends >>08/22/22 outside, TV, cat sits out with neighbor, nondenominational, >>02/26/23 walks, visits with neighbors, nondenominational, kids' sports games, just came back from vacation >>10/22/23 same >>02/25/24 visits with aide, getting to physical therapy, going on walks >>08/25/24 visits with aides, goes to [facility], goes to [facility] >>02/23/25 same Exercise: walks around her house >>02/17/22 walking, weights >>08/22/22 walks around the condo or in her neighborhood >>02/26/23 walks >>10/22/23 walks >>02/25/24 walks, physical therapy >>08/25/24 walking, goint to [facility] Finances: meeting soon with Medicaid production ski repairer Healthcare Power of [employer] Street[employer]: Yes, Daughter Elizabeth Financial Power of [employer] Street[employer]: Yes, Daughter Elizabeth Living Will: Yes Guardian:No [...] sees her sometimes >>02/25/24 has 24 hour critical care rnXochitl who is living with her, another aide [...] members. SW suggested that daughter check out www[employer] to check out any other products that [...] will do fresh foods, etc, goes to [employer] >>02/26/23 patient buys her dry products at [employer], daughter picks up the rest >>10/22/23 same [...] same >>08/25/24 same documented in this encounter [facility] 01-24-2025 Telephone encounter Note Request for refill received from [facility] Last appointment: 08/25/2024 Next appointment: 02/23/2025 Pharmacy confirmed: [x] Yes [] No [facility] 01-24-2025 Miscellaneous Notes Request for refill received from interface Last appointment: 08/25/2024 Next appointment: 02/23/2025 Pharmacy confirmed: [x] Yes [] No documented in this encounter [facility] 09-29-2024 History of Present illness Narrative RADIOLOGY [...] PATIENT PRESENTS WITH AN IMPLANTABLE OR ATTACHED HAUNTED HISTORY TOUR GUIDE: No CREATININE: Creatinine Date Value Ref Range [...] 1424 PATIENT DISCHARGED TO: Ambulatory patient, left [place] department area. Is this a therapy: No A Diagnostic radioactive procedure has taken place, with no further precautions necessary other than routine body substance precautions. More information regarding radiation safety can be found using this link: [email or web address] [email or web address]-%20Diagnostic%20Nuclear %20Medicine%20Procedures.pdf SIGNATURE: RT Shira(R) PATIENT NAME: Cyndee Vital DATE: September 29, 2024 TIME: 2:27 PM PAGER/CONTACT #: documented in this encounter [facility] 09-29-2024 Note HNO ID: [id number] Author: RAISA SMITH RT(R) Service: Radiology Author Type: Technologist Type: [...] PATIENT PRESENTS WITH AN IMPLANTABLE OR ATTACHED HAUNTED HISTORY TOUR GUIDE: No CREATININE: Creatinine Date Value Ref Range [...] 1424 PATIENT DISCHARGED TO: Ambulatory patient, left [place] department area. Is this a therapy: No A Diagnostic radioactive procedure has taken place, with no further precautions necessary other than routine body substance precautions. More information regarding radiation safety can be found using this link: [email or web address] [email or web address]-% 20Diagnostic%20Nuclear%20Medicine% 20Procedures.pdf SIGNATURE: RT Shira(R) PATIENT NAME: Cyndee Vital DATE: September 29, 2024 TIME: 2:27 PM PAGER/CONTACT #: [facility] 09-19-2024 Telephone encounter Note CYNDEE VITAL \\ [id number] DOS: 09/29/24 PET INJ: 1430 PET 4: 1530 APPT NOTES: DO NOT SUBMIT AUTH TO INSURANCE, BILLED TO [employer] [id number] PET BRAIN AMYVID [employer] TRANSMITTAL FORM PET 2 ONLY NO CHARGE FOR DOSE [facility] 09-19-2024 Miscellaneous Notes CYNDEE VITAL \\ [id number] DOS: 09/29/24 PET INJ: 1430 PET 4: 1530 APPT NOTES: DO NOT SUBMIT AUTH TO INSURANCE, BILLED TO [employer] [id number] PET BRAIN AMYVID [employer]EARCH [employer]Y TRANSMITTAL FORM PET 2 ONLY NO CHARGE FOR DOSE documented in this encounter [facility] 08-25-2024 History of Present illness Narrative Review [...] from the original note were not included. [facility] - [address] [address] Dept: [phone] Dept Loc: [phone] Visit type: [facility] Follow Up Visit Reason for Visit: Dementia [...] Disease, hypertension, depression who presents to the [facility] for a follow-up visit. The patient is [...] picking. -October 2023: MOCA score declined to 11. More [...] well. Hasn't complained about sciatica. Appetite: Good. Forest Engineer cooks for her. She has gained weight. 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, spends time with cat >>02/17/22 just went on vacation, walks in [place], plays cards, plays piano, visiting friends >>08/22/22 outside, TV, cat sits out with neighbor, nondenominational, >>02/26/23 walks, visits with neighbors, nondenominational, kids' sports games, just came back from vacation >>10/22/23 same >>02/25/24 visits with aide, getting to physical therapy, going on walks >>08/25/24 visits with aides, goes to [facility], goes to [facility] Exercise: walks around her house >>02/17/22 walking, weights >>08/22/22 walks around the condo or in her neighborhood >>02/26/23 walks >>10/22/23 walks >>02/25/24 walks, physical therapy >>08/25/24 walking, goint to [facility] Finances: meeting soon with Medicaid production ski repairer Healthcare Power of [employer]: Yes, Daughter Elizabeth Financial Power of [employer]: Yes, Daughter Elizabeth Living Will: Yes Guardian:No [...] sees her sometimes >>02/25/24 has 24 hour critical care rnXochitl who is living with her, another aide [...] members. SW suggested that daughter check out www[employer] to check out any other products that [...] will do fresh foods, etc, goes to [employer] >>02/26/23 patient buys her dry products at [employer], daughter picks up the rest >>10/22/23 same [...] immaculate >>02/26/23 same >>10/22/23 same >>02/25/24 berta Xochitl cleans >>08/25/24 same Medications [] [] [x] [...] same >>08/25/24 same documented in this encounter [facility] 07-22-2024 Telephone encounter Note Ordering provider: Gunjan Castillo Date of last office visit: 02/25/24 Date of next office visit: 08/25/24 Updated/Validated preferred pharmacy: Yes [id number] - [place], [place] - [address] [phone] Patient instructed to contact the pharmacy prior [...] of last refill (see medication tab): 12/28/23 [facility] 07-22-2024 Miscellaneous Notes Ordering provider: Gunjan Castillo Date of last office visit: 02/25/24 Date of next office visit: 08/25/24 Updated/Validated preferred pharmacy: Yes [facility] - [place], [place] - [address] [phone] Patient instructed to contact the pharmacy prior [...] medication tab): 12/28/23 documented in this encounter [facility] 04-26-2024 History of Present illness Narrative RADIOLOGY [...] PATIENT PRESENTS WITH AN IMPLANTABLE OR ATTACHED HAUNTED HISTORY TOUR GUIDE: No CREATININE: Creatinine Date Value Ref Range [...] 14:16 PATIENT DISCHARGED TO: Ambulatory patient, left [place] department area. A Diagnostic radioactive procedure has taken place, with no further precautions necessary other than routine body substance precautions. More information regarding radiation safety can be found using this link: [email or web address] [email or web address]-%20Diagnostic%20Nuclear %20Medicine%20Procedures.pdf SIGNATURE: RT Sy(Colette) PATIENT NAME: Cyndee Vital DATE: April 26, 2024 TIME: 2:22 PM PAGER/CONTACT #: documented in this encounter [facility] 04-26-2024 Note HNO ID: [id number] Author: EMERSON MOCTEZUMA RT (R) Service: Nuclear [...] PATIENT PRESENTS WITH AN IMPLANTABLE OR ATTACHED HAUNTED HISTORY TOUR GUIDE: No CREATININE: Creatinine Date Value Ref Range [...] 26, 2024 TIME: 2:22 PM PAGER/CONTACT #: [facility] 04-18-2024 Telephone encounter Note Scheduled as requested 04/26 @ [address] [facility] 04-18-2024 Miscellaneous Notes Scheduled as requested 04/26 @ 1530 CYNDEE VITAL \\ [id number] DOS: 04/26/24 PET INJ: 1430 PET 2: 1530 APPT NOTES: DO NOT SUBMIT AUTH TO INSURANCE, BILLED TO [employer] [id number] PET BRAIN AMYVID [employer] TRANSMITTAL FORM PET 2 ONLY documented in this encounter [facility] 04-18-2024 Telephone encounter Note CYNDEE VITAL \\ [id number] DOS: 04/26/24 PET INJ: 1430 PET 2: 1530 APPT NOTES: DO NOT SUBMIT AUTH TO INSURANCE, BILLED TO [employer] [id number] PET BRAIN AMYVID [employer]EARCH [employer]UDY TRANSMITTAL FORM PET [address] [facility] 02-25-2024 History of Present illness Narrative Review [...] original note were not included. [facility] [address] [facility] [address] Dept: [phone] Dept Loc: [phone] Visit type: [facility] Follow Up Visit Reason for Visit: Dementia [...] namenda -Continue zoloft for mood -Now with 24/ care in her home. [place] but family want to keep her home as long as possible. Follow up in about 6 months (around 08/26/2024). Subjective HPI: Cyndee Vital is a 78 y.o. female with past medical history of Alzheimer's Disease, hypertension, depression who presents to the [facility] for a follow-up visit. The patient is [...] in October 2023: MOCA score declined to 10/08. More forgetful and needing more cueing. Referred to Occupational Therapy for driving evaluation. Started back on Vitamin D. Continued on aricept, namenda, and zoloft. -Did receive a message that patient no longer driving. -She was hospitalized at the end of December 2023: abdominal/back pain. [place] it was related to sciatica. Also tested positive for COVID. -Seen in ER on 01/12: she had a fall off the toilet and hit the back of her had. She had been taking flexeril for back pain. -In middle of January, daughter called in concerned about behavior changes. Patient left her condo, approached a director bioinformatics, and asked them to take her home. [...] back -She now has a live in director critical care and is receiving 24/7 care. Son is [...] poor. Comprehension: poor. Always losing things. Will machine operator picker a pack of cards and will ask [...] asymmetry. Motor: Motor function is intact. Coordination: Dgsfkb-Jszt-Rgprox Test normal. 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 tv, spends time with cat >>02/17/22 just went on vacation, walks in condo, plays cards, plays piano, visiting friends >>08/22/22 outside, TV, cat sits out with neighbor, nondenominational, >>02/26/23 walks, visits with neighbors, nondenominational, kids' sports games, just came back from vacation >>10/22/23 same >>02/25/24 visits with aide, getting to physical therapy, going on walks Exercise: walks around her house >>02/17/22 walking, weights >>08/22/22 walks around the condo or in her neighborhood >>02/26/23 walks >>10/22/23 walks >>02/25/24 walks, physical therapy Finances: meeting soon with Medicaid production ski repairer Healthcare Power of [employer]: Yes, Daughter Elizabeth Financial Power of [employer]: Yes, Daughter Elizabeth Living Will: Yes Guardian:No [...] sees her sometimes >>02/25/24 has 24 hour critical care rn, Xochitl who is living with her, another [...] members. SW suggested that daughter check out www[employer] to check out any other products that [...] will do fresh foods, etc, goes to [employer] >>02/26/23 patient buys her dry products at [employer], daughter picks up the rest >>10/22/23 same [...] eat, mostly heating up prepared foods >>02/25/24 douge, February prepares food, puts in front of her Housework [] [] [x] Still cleaning, no issues >>02/17/22 same >>08/22/22 immaculate >>02/26/23 same >>10/22/23 same >>02/25/24 berta, February cleans Medications [] [] [x] Daughter [...] same >>02/25/24 same documented in this encounter [facility] 02-01-2024 History of Present illness Narrative Radiology [...] PATIENT PRESENTS WITH AN IMPLANTABLE OR ATTACHED HAUNTED HISTORY TOUR GUIDE: No RADIOLOGY DEPARTMENT: MR; Exam(s) Completed: Head: Routine Brain PERIPHERAL IV DATA: Not applicable SIGNED BY: RT Radha(R) February 01, 2024 10:07 AM documented in this encounter [facility] 01-26-2024 Telephone encounter Note I spoke to daughter Elizabeth. I read her the instructions from Dr Bright verbatim. She understands she needs to be seen by PCP first available. I also got patient scheduled with jonathan 02/25/2024. [facility] 01-26-2024 Miscellaneous Notes I spoke to daughter [...] at time of page. I spoke with [facility] nurse Yudy. I asked Yudy (nurse) [...] Social Work(er) Yesica Coats. Sending to our surgery scheduler Yoselyn to please schedule in the next 2-[address] Castillo if Dr. Castillo has any openings. Otherwise, can offer patient to see a different provider who has openings sooner if patient/family amenable. S: Patient's Daughter Elizabeth spoke with [facility] nurse regarding update to previous TE [...] states she was in a complete panic. [facility] Police took her to her home [...] very rapidly. R: Secure chat sent to air route controller Provider Dr Bright who called and advised that Patient have increased supervision at home, if Daughter Elizabeth feels the Patient is a risk to herself or others she should call 911 and have the Patient taken to [facility] emergency room, also advised Elizabeth that [...] symptoms. S: Patient's daughter, Elizabeth spoke with [facility] nurse regarding anxiety and fear. B: [...] the triager Protocols used: Anxiety and Panic Neoxid-[id number] documented in this encounter [employer] 01-26-2024 Telephone encounter Note Noted thank you. Please have office schedule an appointment with us. Also should be seen by PCP to rule out medical causes of increased anxiety [facility] 01-25-2024 Telephone encounter Note Late entry. Call returned at time of page. I spoke with [facility] nurse Yudy. I asked Yudy (nurse) [...] Social Work(er) Yesica Coats. Sending to our surgery scheduler Yoselyn to please schedule in the next 2-[address] Castillo if Dr. Castillo has any openings. Otherwise, can offer patient to see a different provider who has openings sooner if patient/family amenable. [employer] Phone: 01-25-2024 Telephone encounter Note S: Patient's Daughter Elizabeth spoke with [facility] nurse regarding update to previous TE [...] states she was in a complete panic. [facility] Police took her to her home [...] very rapidly. R: Secure chat sent to air route controller Provider Dr Bright who called and advised that Patient have increased supervision at home, if Daughter Elizabeth feels the Patient is a risk to herself or others she should call 911 and have the Patient taken to [facility] emergency room, also advised Elizabeth that they need to call PCP Dr Cook and have Patient evaluated. Elizabeth understands care advice. She is asking if Dr Castlilo could follow up with her and schedule an appointment to see her. Message to Provider, please advise. No further needs at this time. Patient instructed to call back with new or worsening symptoms. [facility] 01-25-2024 Telephone encounter Note Error [facility] 01-25-2024 Miscellaneous Notes Error documented in this encounter [facility] 01-25-2024 Telephone encounter Note S: Patient's daughter, Elizabeth spoke with [facility] nurse regarding anxiety and fear. B: [...] the triager Protocols used: Anxiety and Panic [id number] [facility] 12-28-2023 Telephone encounter Note Request for refill received from [facility] Last appointment: 10/22/2024 Next appointment: recall Pharmacy confirmed: [x] Yes [] No [facility] 12-28-2023 Miscellaneous Notes Request for refill received from [employer] Last appointment: 10/22/2024 Next appointment: recall Pharmacy confirmed: [x] Yes [] No documented in this encounter [facility] 10-22-2023 History of Present illness Narrative Images from the original note were not included. [facility] [address] [facility] [address] Dept: [phone] Dept Loc: [phone] Visit type: [facility] Follow Up Visit Reason for Visit: Dementia Visit Date: 10/22/2023 Assessment and Plan 1. Alzheimer's dementia without behavioral disturbance (HCC) - [facility] Occupational Therapy 2. History of depression 3. Driving safety issue - [facility] Occupational Therapy 4. Vitamin B12 [...] about 6 months (around 04/22/2024). Subjective HPI: Cnydee Vital is a 78 y.o. female with pmhof Alzheimer's Disease, hypertension, depression who presents to the [facility] for a follow-up visit. The patient is [...] use the microwave but doesn't cook anymore -[facility] memory: good. -She had one episode of [...] of "dementia" is mentioned -Walks around her [employer] complex for exercise. She enjoys this. 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: watches tv, spends time with cat >>02/17/22 just went on vacation, walks in condo, plays cards, plays piano, visiting friends >>08/22/22 outside, TV, cat sits out with neighbor, nondenominational, >>02/26/23 walks, visits with neighbors, nondenominational, kids' sports games, just came back from vacation >>10/22/23 same Exercise: walks around her house >>02/17/22 walking, weights >>08/22/22 walks around the condo or in her neighborhood >>02/26/23 walks >>10/22/23 walks Finances: meeting soon with Medicaid production ski repairer Healthcare Power of [employer] Street[employer]: Yes, Madi Johnson Financial Power of [employer] Street[employer]: Yes, Madi Johnson Living Will: Yes Guardian:No [...] members. SW suggested that daughter check out www.[employer] to check out any other products that [...] will do fresh foods, etc, goes to [employer] >>02/26/23 patient buys her dry products at [employer], daughter picks up the rest >>10/22/23 same [...] same >>10/22/23 same documented in this encounter [facility] 10-22-2023 Instructions Gunjan Castillo MD - 10/22/2023 2:45 PM EST Restart Vitamin B12 pill. This can be picked up Over The Counter. Can take 500 mcg or 1000 mcg once a day. Please get your vitamin b12 levels rechecked in one month. documented in this encounter [facility] 09-24-2023 History of Present illness Narrative RADIOLOGY [...] link: [email or web address] [email or web address] %[email or web address] SIGNATURE: RT Tae(R) PATIENT NAME: Cyndee Vital DATE: September 24, 2023 TIME: 2:02 PM PAGER/CONTACT #: documented in this encounter [facility] 09-17-2023 Miscellaneous Notes CYNDEE VITAL \\ [id number] DOS: 09/24/23 PET INJ: 1430 PET 2: 1530 APPT NOTES: DO NOT SUBMIT AUTH TO INSURANCE, BILLED TO [employer]EARCH [employer] [id number] PET BRAIN AMYVID RESEARCH STUDY TRANSMITTAL FORM PET 2 ONLY documented in this encounter [facility] 07-30-2023 Miscellaneous Notes Opend in error documented in this encounter [facility] 07-03-2023 Telephone encounter Note (1) Medication name: [...] of last refill (see medication tab): 02.19.22 [facility] 07-03-2023 Miscellaneous Notes (1) Medication name: Sertraline [...] Date of last refill (see medication tab): 22 documented in this encounter [facility] 04-13-2023 Instructions Celina Levy MD - 04/13/2023 [...] Simple Zinc oxide documented in this encounter [facility] 04-13-2023 History of Present illness Narrative Vitals not obtained per provider's instructions. Patient was identified by name and date of . Alvaro Collazo Why are you seeing the fire engineer (doctor) today? mole What specific location on [...] Tobacco Use? 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 Activities: watches tv, spends time with cat >>02/17/22 just went on vacation, walks in condo, plays cards, plays piano, visiting friends >>08/22/22 outside, TV, cat sits out with neighbor, nondenominational, >>02/26/23 walks, visits with neighbors, nondenominational, kids' sports games, just came back from vacation Exercise: walks around her house >>02/17/22 walking, weights >>08/22/22 walks around the condo or in her neighborhood >>02/26/23 walks Finances: 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 SW suggested that daughter check out www.[employer] to check out any other products that [...] will do fresh foods, etc, goes to [employer] >>02/26/23 patient buys her dried products at [employer], daughter picks up the rest Meal prep [...] from the original note were not included. [facility] [address] [facility] [address] Dept: [phone] Dept Loc: [phone] Visit type: [facility] Follow Up Visit Reason for Visit: Dementia [...] Disease, hypertension, depression who presents to the [facility] for a follow-up visit. The patient is [...] from building up again. -She went to [place] with the family on a trip. She [...] the house a lot. Sometimes around the [employer] complex Reviewed progress notes completed by ALFREDO (JULITO) [...] in buttock 02/26/2023 Paroxysmal supraventricular tachycardia (CMS/HCC) ([facility]) 01/25/2021 Pure hypercholesterolemia 10/14/2019 PVC (premature ventricular [...] independently reviewed the [place] [facility] Assessment from 02/26/2023. Test scanned in [...] exam and/or evaluation documented in this encounter [facility] 02-26-2023 Instructions Gunjan Castillo MD - 02/26/2023 [...] to your pharmacy. documented in this encounter [facility] 02-19-2023 History of Present illness Narrative RADIOLOGY [...] safety can be found using this link: [email or web address] [email or web address] SIGNATURE: RT Amanda(R) PATIENT NAME: Cyndee Vital DATE: February 19, 2023 TIME: 2:37 PM PAGER/CONTACT #: documented in this encounter [facility] 02-19-2023 Telephone encounter Note Rescheduled. [facility] 02-19-2023 Miscellaneous Notes Rescheduled. DONNA Castillo Name of caller: Elizabeth Contact phone number: [phone] Relationship to Patient: patient daughter Provider: Dr. Castillo Practice: Senior Services Chief Complaint/Reason for Call: The patient and daughter is at the [facility] getting a PET Scan because the patient [...] their call: Yes documented in this encounter [facility] 02-19-2023 Telephone encounter Note DONNA Castillo [facility] 02-19-2023 Telephone encounter Note Name of caller: Elizabeth Contact phone number: [phone] Relationship to Patient: patient daughter Provider: Dr. Castillo Practice: Senior Services Chief Complaint/Reason for Call: The patient and daughter is at the [facility] getting a PET Scan because the patient is part of a trail program. They will not be able to make it to the patient appointment at 3: 45 pm today. Please call the patient daughter to reschedule the patient appointment. Best time of day caller can be reached: any Patient advised that office/PCP has 24-48 business hours to return their call: Yes [facility] 02-19-2023 Miscellaneous Notes CYNDEE VITAL \\ [id number] DOS: 02/19/23 PET INJ: 1445 PET 2: 1545 APPT NOTES: ANU [id number] PET BRAIN AMYVID RESEARCH STUDY TRANSMITTAL FORM PET 2 ONLY documented in this encounter [facility] 02-28-2022 History of Present illness Narrative Images from the original note were not included. [facility] SECTION OF REGIONAL CARDIOLOGY [facility] OUTPATIENT VISIT DATE February 28, 2022 PRIMARY CARE PHYSICIAN: Emi Cook (Cassandra) [address] [address] HISTORY OF PRESENT ILLNESS: Ms. Vital is [...] is otherwise normal. Marcus Sorensen DO, FACC, FAC Clinical and Preventive Cardiology Department of Medicine and Division of Cardiology, [facility] Retail Office Associateadvertising teacher [facility] Retail Office Associate of Cong[facility] Heart Failure Clinic [facility] Cardiology Office Retail Office Associate [facility] Staff Home Hospice Rn, Delvis Johnston Department of Cardiovascular Medicine/[facility] [place], [facility] Clinical Brainer Profressor of Medicine, [facility] of Medicine [facility] Please note: This note has been produced using speech recognition software and may contain errors related to that system including lianet, punctuation, spelling, words, gender and phrases that may be inappropriate. documented in this encounter [facility] 10-06-2019 History of Past i llness Narrative [...] of this encounter (statuses as of 02/28/2022) [facility] History of Past illness Narrative* Problem Noted [...] of this encounter (statuses as of 01/22/2023) [facility] of Past [facility] Narrative* Problem Noted [...] of this encounter (statuses as of 02/20/2023) [facility] of Past illness Narrative* Problem Noted [...] of this encounter (statuses as of 02/20/2023) [facility] of [facility] Narrative* Problem Noted [...] of this encounter (statuses as of 07/30/2023) [facility] of Past [facility] Narrative* Problem Noted [...] of this encounter (statuses as of 09/17/2023) [facility] of [facility] Narrative* Problem Noted [...] of this encounter (statuses as of 09/25/2023) [facility] of [facility] Narrative* Problem Noted [...] of this encounter (statuses as of 09/25/2023) [facility] of Past [facility] Narrative* Problem Noted [...] of this encounter (statuses as of 01/27/2024) [facility] of Past [facility] Narrative* Problem Noted [...] of this encounter (statuses as of 02/02/2024) [facility] No data available for this section [facility] Evaluation note* Diagnosis PSVT (paroxysmal supraventricular tachycardia) (HCC)- Primary Paroxysmal supraventricular tachycardia PVC (premature ventricular contraction) Other premature beats Pure hypercholesterolemia documented in this encounter [facility] note* Diagnosis Examination for normal comparison or control in clinical research- Primary Examination of participant in clinical trial documented in this encounter [facility] note* Diagnosis Onset Date Resolution Status Acute buttock pain acute Hyperlipidemia acute Shingles acute [facility] Work Phone: Evaluation note* Diagnosis Examination for normal comparison or control in clinical research Examination of participant in clinical trial documented in this encounter [facility] note* Diagnosis Alzheimer's dementia without behavioral disturbance (HCC)- Primary Alzheimer's disease Depression, unspecified depression type documented in this encounter [facility] note* Diagnosis Seborrheic keratoses- Primary Ephelides Other dyschromia Lentigines Other dyschromia Multiple nevi documented in this encounter [facility] note* Diagnosis Depression, unspecified depression type documented in this encounter [facility] note* Diagnosis Memory changes Memory loss documented in this encounter [facility] note* Diagnosis Alzheimer's dementia without behavioral disturbance (HCC)- Primary Alzheimer's disease History of depression Personal history of other mental disorder Driving safety issue Vitamin B12 deficiency Other B-complex deficiencies documented in this encounter [facility] note* Diagnosis Examination for normal comparison or control in clinical research- Primary Examination of participant in clinical trial documented in this encounter [facility] note* Diagnosis Onset Date Resolution Status Alzheimer's dementia acute Sciatica, left side acute Alzheimer's dementia acute Change in mental status acut e Panic attacks acute Sciatica, left side acute [facility] Work Phone: Evaluation note* Diagnosis Examination for normal comparison or control in clinical research Examination of participant in clinical trial documented in this encounter [facility] note* Diagnosis Alzheimer's dementia with behavioral disturbance (HCC)- Primary Alzheimer's disease documented in this encounter [facility] note* Diagnosis Examination of participant in clinical trial- Primary documented in this encounter [facility] note* Diagnosis Examination of participant or control in clinical research- Primary Examination of participant in clinical trial documented in this encounter [facility] note* Diagnosis Examination of participant or control in clinical research- Primary Examination of participant in clinical trial documented in this encounter [facility] note* Diagnosis Examination of participant or control in clinical research Examination of participant in clinical trial documented in this encounter [facility] note* Diagnosis Depression, unspecified depression type documented in this encounter [facility] note* Diagnosis Alzheimer's dementia with behavioral disturbance (HCC)- Primary Alzheimer's disease documented in this encounter [facility] note* Diagnosis Examination of participant or control in clinical research Examination of participant in clinical trial documented in this encounter [facility] note* Diagnosis 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 Irregular heart rate Primary hypertension Unspecified essential hypertension documented in this encounter [facility] note* Diagnosis Irregular heart rate documented in this encounter [facility] note* Diagnosis 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 Irregular heart rate Primary hypertension Unspecified essential hypertension Irregular heart rate documented in this encounter [facility] Discharge instructions No data available for this section [facility] Reason for referral (narrative)* Outpatient Procedure (Routine) - Closed Specialty Diagnoses / Procedures Referred By Rufino estrella Referred To Contact [facility] Diagnoses PSVT (paroxysmal supraventricular tachycardia) (HCC) Procedures ECG COMPLETE ECG ROUTINE ECG W/LEAST 12 LDS W/I&R Marcus Sorensen DO [address] [place] [id number] [facility] [place] [address] [place] [address] Referral ID Status Reason Start Date Expiration Date V isits Requested Visits Authorized [id number] Closed Auto-Generate d Referral 02/28/2022 02/28/2023 1 1 [facility] for referral (narrative)* Diagnostic Procedure Only (Routine) - Pending Review Specialty Diagnoses / Procedures Referred By Rufino estrella Referred To Contact MOLECULAR & FUNCTIONAL IMAGING Diagnoses Examination for normal comparison or control in clinical research Procedures NM PET/CT BRAIN PLAQUE IMAGING PET IMAGING CT FOR ATTENUATION LIMITED AREA Amilcar Bradford MD, MD, PhD [address] [place] [address] Molecular & Functional Imaging [address] [place] [address] Referral ID Status Reason Start Date Expiration Date Visits Requested Visits Authorized [id number] Pending Review Auto-Generat ed Referral 01/22/2023 02/20/2024 1 1 [facility] for referral (narrative)* Diagnostic Procedure Only (Routine) - Closed Specialty Diagnoses / Procedures [facility] Referred To Contact MOLECULAR & FUNCTIONAL IMAGING Diagnoses Examination for normal comparison or control in clinical research Procedures NM PET/CT BRAIN PLAQUE IMAGING PET IMAGING CT FOR ATTENUATION LIMITED AREA Amilcar Bradford MD, MD, PhD [address] [place] [address] Molecular & Functional Imaging [address] [place] [address] Referral ID Status Reason Start Date Expiration Date V isits Requested Visits Authorized [id number] Closed Auto-Generate d Referral 01/22/2023 02/20/2024 1 1 [facility] for referral (narrative)* Diagnostic Procedure Only (Routine) - Closed Specialty Diagnoses / Procedures Referred By [facility] Referred To Contact MOLECULAR & FUNCTIONAL IMAGING Diagnoses Memory changes Procedures NM PET/CT BRAIN PLAQUE IMAGING PET IMAGING CT FOR ATTENUATION LIMITED AREA Amilcar Bradford MD, MD, PhD [address] [place] [address] Molecular & Functional Imaging [address] [place] [address] Referral ID Status Reason Start Date Expiration Date V isits Requested Visits Authorized [id number] Closed Auto-Generate d Referral 09/15/2023 10/13/2024 1 1 [facility] for referral (narrative)* Consultation (Routine) - Pending Review Specialty Diagnoses / Procedures Referred By Rufino estrella Referred To Contact Occupational Therapy / Geriatric Medicine Diagnoses Alzheimer's dementia without behavioral disturbance (HCC) Driving safety issue Procedures ID OFFICE/OUTPATIENT NEW HIGH MDM 60-74 MINUTES Gunjan Castillo MD [address] [place] [address] [address] [place] [address] Referral ID Status Reason Start Date Expiration Date Visits Requested Visits Authorized [id number] Pending Review Specialty Services Required 3 10/22/2024 99 99 [facility] for referral (narrative)* Diagnostic Procedure Only (Routine) - Pending Review Specialty Diagnoses / Procedures Referred By Rufino estrella Referred To Contact MOLECULAR & FUNCTIONAL IMAGING Diagnoses Examination of participant or control in clinical research Procedures NM PET/CT BRAIN PLAQUE IMAGING PET IMAGING CT FOR ATTENUATION LIMITED AREA Amilcar Bradford MD, , PhD [address] [place] [address] Molecular & Functional Imaging [address] [place] [address] Referral ID Status Reason Start Date Expiration Date Visits Requested Visits Authorized [id number] Pending Review Auto-Generat ed Referral 04/16/2024 05/15/2025 1 1 [facility] for referral (narrative)* Diagnostic Procedure Only (Routine) - New Request Specialty Diagnoses / Procedures Referred By Rufino estrella Referred To Contact MOLECULAR & FUNCTIONAL IMAGING Diagnoses Examination of participant or control in clinical research Procedures NM PET/CT BRAIN PLAQUE IMAGING PET IMAGING CT FOR ATTENUATION LIMITED AREA Amilcar Bradford MD, MD, PhD [address] [place] [address] Molecular & Functional Imaging [address] [place] [address] Referral ID Status Reason Start Date Expiration Date Visits Requested Visits Authorized [id number] New Request Auto-Generat ed Referral 09/15/2024 10/14/2025 1 1 [facility] for visit Narrative* Diagnostic Procedure Only (Routine) - Closed Specialty Diagnoses / Procedures Referred By Rufino estrella Referred To Contact MOLECULAR & FUNCTIONAL IMAGING Diagnoses Examination for normal comparison or control in clinical research Procedures NM PET/CT BRAIN PLAQUE IMAGING PET IMAGING CT FOR ATTENUATION LIMITED AREA Amilcar Bradford MD, , PhD [address] [id number] Molecular & Functional Imaging [address] [place] [address] Referral ID Status Reason Start Date Expiration Date V isits Requested Visits Authorized [id number] Closed Auto-Generate d Referral 01/22/2023 02/20/2024 1 1 [facility] for visit Narrative* Diagnostic Procedure Only (Routine) - Closed Specialty Diagnoses / Procedures Referred By Rufino estrella Referred To Contact MOLECULAR & FUNCTIONAL IMAGING Diagnoses Memory changes Procedures NM PET/CT BRAIN PLAQUE IMAGING PET IMAGING CT FOR ATTENUATION LIMITED AREA Amilcar Bradford MD, MD, PhD [address] [place] [address] Molecular & Functional Imaging [address] [place] [address] Referral ID Status Reason Start Date Expiration Date V isits Requested Visits Authorized [id number] Closed Auto-Generate d Referral 09/15/2023 10/13/2024 1 1 [facility] for visit Narrative* Diagnostic Procedure Only (Routine) - Closed Specialty Diagnoses / Procedures Referred By Rufino estrella Referred To Contact MOLECULAR & FUNCTIONAL IMAGING Diagnoses Examination of participant or control in clinical research Procedures NM PET/CT BRAIN PLAQUE IMAGING PET IMAGING CT FOR ATTENUATION LIMITED AREA Amilcar Bradford MD, , PhD [address] [place] [address] Molecular & Functional Imaging [address] [id number] Referral ID Status Reason Start Date Expiration Date V isits Requested Visits Authorized [id number] Closed Auto-Generate d Referral 04/16/2024 05/15/2025 [address] [facility] Diagnostic Procedure Only (Routine) - Closed Specialty Diagnoses / Procedures Referred By Rufino estrella Referred To Contact MOLECULAR & FUNCTIONAL IMAGING Diagnoses Examination of participant or control in clinical research Procedures NM PET/CT BRAIN PLAQUE IMAGING PET IMAGING CT FOR ATTENUATION LIMITED AREA Amilcar Bradford MD, , PhD [address] [place] [address] Molecular & Functional Imaging [address] [place] [address] Referral ID Status Reason Start Date Expiration Date V isits Requested Visits Authorized [id number] Closed Auto-Generate d Referral 09/15/2024 10/14/2025 [address] 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 Backup Administrative Coordinator Expl anation ACP-Advance Directive 11/11/2021 Chief Complaint [...] CONTRAST MATERIAL Amilcar Bradford MD, MD, PhD [address] [place] [address] Mr Imaging [facility] Referral ID Status Reason Start Date Expiration Date Visits Requested Visits Authorized [id number] Pending Review Auto-Generat ed Referral 01/27/2024 02/24/2025 1 1 Additional Source Comments INFORMATION SOURCE (unrecogn ized section and content) DATE CREATED AUTHOR 08/21/2021 [facility] ([place]) DATE CREATED AUTHOR AUTHOR'S ORGANIZ ATION 11/15/2021 [facility] DATE CREATED AUTHOR AUTHOR'S ORGANIZ ATION 08/30/2022 [facility] DATE CREATED AUTHOR AUTHOR'S ORGANIZ ATION 04/18/2023 [facility] DATE CREATED AUTHOR AUTHOR'S ORGANIZ ATION 09/01/2024 [facility] DATE CREATED AUTHOR AUTHOR'S ORGANIZ ATION 03/17/2025 [facility] DATE CREATED AUTHOR AUTHOR'S ORGANIZ ATION 08/30/2025 [facility] DATE CREATED AUTHOR AUTHOR'S ORGANIZ ATION 09/05/2025 [facility] Source Comments (unrecognize d section and content) In the event this informatio n is protected by the Federal Confidentiality of Alcohol and Drug Abuse Patient Records regulations: The Federal rules restrict any use of the information to criminally investigate or prosecute any alcohol or drug abuse patient.[facility] the event this information is protected by the Federal Confidentiality of Alcohol and Drug Abuse Patient Records regulations: The Federal rules restrict any use of the information to criminally investigate or prosecute any alcohol or drug abuse patient.[facility] the event this information is protected by the Federal Confidentiality of Alcohol and Drug Abuse Patient Records regulations: The Federal rules restrict any use of the information to criminally investigate or prosecute any alcohol or drug abuse patient.[facility] the event this information is protected by the Federal Confidentiality of Alcohol and Drug Abuse Patient Records regulations: The Federal rules restrict any use of the information to criminally investigate or prosecute any alcohol or drug abuse patient.[facility] the event this information is protected by the Federal Confidentiality of Alcohol and Drug Abuse Patient Records regulations: The Federal rules restrict any use of the information to criminally investigate or prosecute any alcohol or drug abuse patient.[facility] Center[facility] the event this information is protected by the Federal Confidentiality of Alcohol and Drug Abuse Patient Records regulations: The Federal rules restrict any use of the information to criminally investigate or prosecute any alcohol or drug abuse patient.[facility] Center[facility] the event this information is protected by the Federal Confidentiality of Alcohol and Drug Abuse Patient Records regulations: The Federal rules restrict any use of the information to criminally investigate or prosecute any alcohol or drug abuse patient.[facility] Center[facility] the event this information is protected by the Federal Confidentiality of Alcohol and Drug Abuse Patient Records regulations: The Federal rules restrict any use of the information to criminally investigate or prosecute any alcohol or drug abuse patient.[facility] Center[facility] the event this information is protected by the Federal Confidentiality of Alcohol and Drug Abuse Patient Records regulations: The Federal rules restrict any use of the information to criminally investigate or prosecute any alcohol or drug abuse patient.[facility] Center[facility] the event this information is protected by the Federal Confidentiality of Alcohol and Drug Abuse Patient Records regulations: The Federal rules restrict any use of the information to criminally investigate or prosecute any alcohol or drug abuse patient.[facility] Center[facility] the event this information is protected by the Federal Confidentiality of Alcohol and Drug Abuse Patient Records regulations: The Federal rules restrict any use of the information to criminally investigate or prosecute any alcohol or drug abuse patient.[facility] Center[facility] the event this information is protected by the Federal Confidentiality of Alcohol and Drug Abuse Patient Records regulations: The Federal rules restrict any use of the information to criminally investigate or prosecute any alcohol or drug abuse patient.[facility] CenterIn the event this information is protected by the Federal Confidentiality of Alcohol and Drug Abuse Patient Records regulations: The Federal rules restrict any use of the information to criminally investigate or prosecute any alcohol or drug abuse patient.[facility] Center[facility] the event this information is protected by the Federal Confidentiality of Alcohol and Drug Abuse Patient Records regulations: The Federal rules restrict any use of the information to criminally investigate or prosecute any alcohol or drug abuse patient.[facility] CenterIn the event this information is protected by the Federal Confidentiality of Alcohol and Drug Abuse Patient Records regulations: The Federal rules restrict any use of the information to criminally investigate or prosecute any alcohol or drug abuse patient.[facility] CenterIn the event this information is protected by the Federal Confidentiality of Alcohol and Drug Abuse Patient Records regulations: The Federal rules restrict any use of the information to criminally investigate or prosecute any alcohol or drug abuse patient.[facility] CenterIn the event this information is protected by the Federal Confidentiality of Alcohol and Drug Abuse Patient Records regulations: The Federal rules restrict any use of the information to criminally investigate or prosecute any alcohol or drug abuse patient.[facility] CenterIn the event this information is protected by the Federal Confidentiality of Alcohol and Drug Abuse Patient Records regulations: The Federal rules restrict any use of the information to criminally investigate or prosecute any alcohol or drug abuse patient.[facility] CenterIn the event this information is protected by the Federal Confidentiality of Alcohol and Drug Abuse Patient Records regulations: The Federal rules restrict any use of the information to criminally investigate or prosecute any alcohol or drug abuse patient.[facility] CenterIn the event this information is protected by the Federal Confidentiality of Alcohol and Drug Abuse Patient Records regulations: The Federal rules restrict any use of the information to criminally investigate or prosecute any alcohol or drug abuse patient.[facility] CenterIn the event this information is protected by the Federal Confidentiality of Alcohol and Drug Abuse Patient Records regulations: The Federal rules restrict any use of the information to criminally investigate or prosecute any alcohol or drug abuse patient.[facility] CenterIn the event this information is protected by the Federal Confidentiality of Alcohol and Drug Abuse Patient Records regulations: The Federal rules restrict any use of the information to criminally investigate or prosecute any alcohol or drug abuse patient.[facility] CenterIn the event this information is protected by the Federal Confidentiality of Alcohol and Drug Abuse Patient Records regulations: The Federal rules restrict any use of the information to criminally investigate or prosecute any alcohol or drug abuse patient.[facility] Reason for Visit (unrecogniz ed section and content) Reason Comments Radiology NM Specialty Diagnoses / Procedures Referred By Rufino t Referred To Contact MOLECULAR & FUNCTIONAL IMAGING Diagnoses Examination of participant or control in clinical research Procedures NM PET/CT BRAIN PLAQUE IMAGING PET IMAGING CT FOR ATTENUATION LIMITED AREA Amilcar Bradford MD, MD, PhD [address] [place] [address] Molecular & Functional Imaging [address] [place] [address] Referral ID Status Reason Start Date Expiration Date V isits Requested Visits Authorized [id number] Closed Auto-Generate d Referral 09/15/2024 10/14/2025 1 [...] MRI Specialty Diagnoses / Procedures Referred By Contitalo t Referred To Contact MR IMAGING Diagnoses Examination for normal comparison or control in clinical research Procedures MRI BRAIN WO IVCON MRI BRAIN BRAIN STEM W/O CONTRAST MATERIAL Amilcar Bradford MD, MD, PhD [address] [place] [address] [place] [address] Referral ID Status Reason Start Date Expiration Date V isits Requested Visits Authorized [id number] Closed Auto-Generate d Referral 01/27/2024 02/24/2025 1 1 Reason Onset Date Comments Med Refill 07/22/2024 Reason Comments Returning Patient's Call Reason Onset Date Comments Cancelled Appointment 02/19/2023 Cancel and reschedule Reason Onset Date Comments Med Refill 01/24/2025 Reason Comments Radiology MRI Research brain Reason Comments Memory Loss Reason Comments Radiology MRI Scanned under resear ch number. Reason Onset Date Comments Cancelled Appointment 08/29/2025 08/31/25 Care Teams (unrecognized sec tion and content) Track Subway Repair Supervisor Relationship Specialty Start Date End Date Emi Cook APRN.CH[employer]IAN [employer] [address] [place], [place] [phone] PCP - General Family Practice 10/06/19 Track [employer]way Repair Supervisor Relationship Specialty Start Date End Date Emi Cook [address] [facility] [place] [address] PCP - General Nurse Practitioner 09/10/21 Track [employer]way Repair Supervisor Relationship Specialty Start Date End Date Emi Cook APRN.CH[employer] [address] [place] [address] PCP - General Family Medicine 10/06/19 Team Status: Active Member Role Status Dates Emi Cook BEVELING MACHINE OPERATOR, BEVELING MACHINE OPERATOR-C Primary Care Provider Active Team Status: Inactive Member Role Status Dates Emi Cook BEVELING MACHINE OPERATOR, BEVELING MACHINE OPERATOR-C Primary Care Pr ovider, Attending Provider, Referring Provider Active Team Status: Inactive Member Role Status Dates Emi Cook BEVELING MACHINE OPERATOR, BEVELING MACHINE OPERATOR-C Primary Care Provider, Attend ing Provider Active Track [employer]way Rep[employer] Supervisor Relationship Specialty Start Date End Date Emi Cook APRN.[employer] [address] [place] [address] PCP - General Family Medicine 10/06/19 Track Subway Repair Supervisor Relationship Specialty Start Date End Date Emi Cook, OFFICE HELPER.CH[employer] [address] [place], [place] [id number] PCP - General Family Medicine 10/06/19 Track Subway Repair Supervisor Relationship Specialty Start Date End Date Emi Cook, OFFICE HELPER.CH[employer] [address] [place], [place] [phone] PCP - General Family Medicine 10/06/19 Track Subway Repair Supervisor Relationship Specialty Start Date End Date Emi Cook [address] [place] [address] PCP - General 09/10/21 Track Subway Repair Supervisor Relationship Specialty Start Date End Date Emi Cook [address] [place] [address] PCP - General 09/10/21 Track Subway Repair Supervisor Relationship Specialty Start Date End Date Emi Cook, OFFICE HELPER.CHRI[employer]IAN SCI[employer] HE[employer]ER [address] [place], [place] [id number] PCP - General Family Medicine 10/06/19 Track Subway Repair Supervisor Relationship Specialty Start Date End Date Emi Cook, OFFICE HELPER.CHRI[employer]IAN SCIENCE [employer]ER [address] [place], [place] [phone] PCP - General Family Medicine 10/06/19 Track Subway Repair Supervisor Relationship Specialty Start Date End Date Emi Cook, OFFICE HELPER.CHRISTIAN SCIENCE HEALER [address] [place], [place] [phone] PCP - General Family Medicine 10/06/19 Track Subway Repair Supervisor Relationship Specialty Start Date End Date Emi Cook, OFFICE HELPER.CHRISTIAN SCIENCE HEALER [address] [place], [place] [phone] PCP - General Family Medicine 10/06/19 Track Subway Repair Supervisor Relationship Specialty Start Date End Date Emi Cook [address] [place] [address] PCP - General 09/10/21 Track Subway Repair Supervisor Relationship Specialty Start Date End Date Emi Cook [address] [place] [address] PCP - General 09/10/21 Track Subway Repair Supervisor Relationship Specialty Start Date End Date Emi Cook [address] [place] [address] PCP - General Nurse Practitioner 01/25/24 Track Subway Repair Supervisor Relationship Specialty Start Date End Date Emi Cook, OFFICE HELPER.CHRI[employer]IAN SCI[employer]ER [address] [place], [place] [id number] PCP - General Family Medicine 10/06/19 Track Subway Repair Supervisor Relationship Specialty Start Date End Date Emi Cook [address] [place] [address] PCP - General Nurse Practitioner 01/25/24 Track Subway Repair Supervisor Relationship Specialty Start Date End Date Emi Cook, OFFICE HELPER.CHRI[employer]IAN SCIENCE HEALER [address] [place], [place] [phone] PCP - General Family Medicine 10/06/19 Track Subway Repair Supervisor Relationship Specialty Start Date End Date Emi Cook [address] [place] [address] PCP - General Nurse Practitioner 01/25/24 Track Subway Repair Supervisor Relationship Specialty Start Date End Date Emi Cook, OFFICE HELPER.CHRI[employer]IAN [employer]ENCE [employer]ER [address] [place], [place] [phone] PCP - General Family Medicine 10/06/19 Track Subway Repair Supervisor Relationship Specialty Start Date End Date Emi Cook, OFFICE HELPER.CHRI[employer]IAN SCIENCE HEALER [address] [place], [place] [id number] PCP - General Family Medicine 10/06/19 Track Subway Repair Supervisor Relationship Specialty Start Date End Date Celina Levy MD [address] [place] [address] Physician Dermatology 05/09/23 Track Subway Repair Supervisor Relationship Specialty Start Date End Date Emi Cook [address] [place], [place] [phone] PCP - General Nurse Practitioner 01/25/24 Track Subway Repair Supervisor Relationship Specialty Start Date End Date Emi Cook, OFFICE HELPER.CHRI[employer]IAN [employer] HEALER [address] [place], [place] [phone] PCP - General Family Medicine 10/06/19 Track Subway Repair Supervisor Relationship Specialty Start Date End Date Emi Cook, OFFICE HELPER.CHRI[employer]IAN SCIENCE HEALER [address] [place], [place] [phone] PCP - General Family Medicine 10/06/19 Track Subway Repair Supervisor Relationship Specialty Start Date End Date Emi Cook [address] [place] [phone] PCP - General 09/10/21 Track Subway Repair Supervisor Relationship Specialty Start Date End Date Emi Cook [address] [place] [place], [place] [phone] PCP - General Nurse Practitioner 01/25/24 Track Subway Repair Supervisor Relationship Specialty Start Date End Date CookEmi APRN.JOHN [address] [facility] [address] [place], [place] [phone] PCP - General Family Medicine 10/06/19 Track Subway Repair Supervisor Relationship Specialty Start Date End Date Emi Cook [address] [place], [place] [id number] PCP - General Nurse Practitioner 01/25/24 Track Subway Repair Supervisor Relationship Specialty Start Date End Date Cook Emi [address] [place] [place], [place] [address] PCP - General Nurse Practitioner 01/25/24 Track Subway Repair Supervisor Relationship Specialty Start Date End Date Cleina Levy MD [address] [place] [address] Physician Dermatology 05/09/23 Track Subway Repair Supervisor Relationship Specialty Start Date End Date Emi Cook [address] [place], [place] [address] PCP - General Nurse Practitioner 01/25/24 Goals (unrecognized section and content) Goals may [...] BE BASED ON THE PRIMARY CLINICAL RECORDS. [employer] [facility]. provides no warranty or guarantee of the accuracy or completeness of information in this document.
[2025-09-08 19:38] LABS: Color, Urine Yellow (Yellow); Glucose, Dipstick Normal (Normal); Ketone-Dipstick 5 mg/dl (Negative); Leukocyte Esterase-Dipstick 500 /ul (Negative); Nitrite-Dipstick Negative (Negative); Occult Blood-Urine Negative /ul (Negative); Protein-Dipstick 30 mg/dl (Negative); Specific Gravity, Urine 1.025 (1.002-1.030); Urine Bilirubin Dipstick Negative (Negative)
[2025-09-08 22:23] LABS: Calcium Oxalate Crystals Ur 1+ /hpf (<or=2+); Mucous, Urine 2+ /hpf (<or=2+)
[2025-09-08 22:25] LABS: Squamous Epithelial Cells - UA 0-5 SEEN /hpf (5-10)
[2025-09-08 22:26] LABS: Red Blood Cells-Urine 0-5 SEEN /hpf (0-5)
== END ==
LOC: OLS.SW 19:21
PROVIDERS: PCP Nurse Practitioner; Visit Provider Family Medicine
DX: R30.0 Dysuria (principal)
CPT/HCPCS: 81001; 87086; 87088

== ENCOUNTER → 2025-10-31 05:00 | Outpatient (REF) | payer MEDICARE, SELFPAY ==
--- OUTSIDE RECORDS SUMMARY | 2025-10-31 04:10 | XMS RPT_ITS | CCD ---
Author Organization [facility] Care Team Providers Care Honeycomb Decapper Name Role Phone HAWK PERKINS, DR ROSEMARY Molina Primary Care Physician [phone] Joey VICE PRESIDENT PLANNING.Emi LOPEZ Primary Care Provide r Yoselyn Paez [...] Unavailable Cook, Emi Primary Care Provider Joey VICE PRESIDENT PLANNING.Emi LOPEZ Primary Care Provide r Ventura Cooka Primary Care Provider PROVIDER, UNKNOWN Attending Unavailable PROVIDER, UNKNOWN Admitting Unavailable PATIENT, SELF Referring Unavailable Unavailable Primary Care Provider Unavailabl e Cook, Emi Primary Care Provider [phone] Joey Emi Primary Care Provider Joey VICE PRESIDENT PLANNING.Emi LOPEZ Primary Care Provide r Mildred PERKINS, Celina Unavailable COOK, EMI L Primary Care Unavailable EDDIE NICK Admitting Unavailable EDDIE NICK Attending Unavailable SHAKILA [...] Attending Unavailable COOK, EMI Primary Care Unavailable Josué Orr Attending Unavailable Cook POWERHOUSE ELECTRICIAN APPRENTICE, Emi Primary Care Unavailable Josué Orr Attending Unavailable Cook POWERHOUSE ELECTRICIAN APPRENTICE, Emi Primary Care Unavailable Cook POWERHOUSE ELECTRICIAN APPRENTICE, Emi Primary Care Unavailable Josué Orr Referring Unavailable Josué Orr Attending Unavailable Cook POWERHOUSE ELECTRICIAN APPRENTICE, Emi Primary Care Unavailable Josué Orr Attending Unavailable Cook POWERHOUSE ELECTRICIAN APPRENTICE, Emi Primary Care Unavailable Josué Orr Attending Unavailable Josué Orr Attending Unavailable Cook POWERHOUSE ELECTRICIAN APPRENTICE, Emi Primary Care Unavailable Cook POWERHOUSE ELECTRICIAN APPRENTICE, Emi Referring Unavailable Cook POWERHOUSE ELECTRICIAN APPRENTICE, Emi Primary Care Unavailable Joey POWERHOUSE ELECTRICIAN APPRENTICE, Emi Attending Unavailable Josué Orr Attending Unavailable Josué Orr Referring Unavailable Cook POWERHOUSE ELECTRICIAN APPRENTICE, Emi Primary Care Unavailable Josué Orr Attending Unavailable Cook POWERHOUSE ELECTRICIAN APPRENTICE, Emi Primary Care Unavailable Allergies Allergy Classification Reported Allergen(s) Allergy Type Date of Onset Reaction(s) Facility (3 sources) cat dander; Translations: [cat dander] Allergy to substance 2 NEEDS FOLLOW-UP [facility] Medications Current Medications Medication Drug Class(es) Dates [...] hydrochloride 10 mg oral tablet (20 sources) P-hrsmbm-C-aspartate Receptor Antagonist Start: 04-09-2023 memantine (NAMENDA) 10 [...] MG PO THREE TIMES A DAY 21 January 26, 2023 12:00am February 02, 2023 [...] type] Onset: 3 10-11-2015 Chronic Mood disorders (3 sources) Mood disorders; Translations: [Depression, unspecified] Onset: 2 Nutritional deficiencies (4 sources) Deficiency of other specified B group vitamins; Translations: [Cobalamin deficiency] Onset: 2 Episodic Other aftercare (2 sources) Other long-term (current) drug therapy; Translations: [Other long term care pharmacist (current) drug therapy] Onset: 5 Episodic Other [...] Test Name Value Interpretation Reference Range Facility Urine Cultureon 09-11-2025 [facility] #1, 2 Below infectio n level. Gram negative marissa Lookout Count <1000 Mixed Gram Positive Organisms Mixed Gram Positive Organisms MIXC Mixed contaminants. Submit a new specimen if indicated. Normal [facility] Comment on above: Performed By: #### L 501.9520, L501.9310 #### [facility] [address] [place], [address] Urinalysis, Completeon 09-08 RBC 0-5 SEEN Normal 0-5 [facility] Comment on above: Order Comment: 410.2 Performed By: #### L 501.9520, L501.9310 #### [facility] [address] [place], [address] EPI,SQUAMOUS 0-5 SEEN Normal 5-10 [facility] Comment on above: Order Comment: 410.2 Performed By: #### L 501.9520, L501.9310 #### [facility] [address] [place], [address] CA OX CRYSTAL 1+ /hpf Normal [facility] Comment on above: Order Comment: 410.2 Performed By: #### L 501.9520, L501.9310 #### [facility] [address] [place], [address] Mucus Ql (Urine sed) 2+ /hpf Normal [facility] Comment on above: Order Comment: 410.2 Performed By: #### L 501.9520, L501.9310 #### [facility] [address] [place], [address] WBC 25-50 SEEN Normal 0-5 [facility] Comment on above: Order Comment: 410.2 Performed By: #### L 501.9520, L501.9310 #### [facility] [address] [place], [address] BACTERIA 0 SEEN Normal None Seen [facility] Comment on above: Order Comment: 410.2 Performed By: #### L 501.9520, L501.9310 #### [facility] [address] [place], [address] Ammoniaon 08-31-2025 Ammonia (P) [Moles/Vol] 23.2 umol/L Normal 11-51 [facility] Comment on above: Performed By: #### L 501.9310, L500.4050, L500.4100, L501.9985, L100.0500, L501.9520 #### [facility] [address] [place], [address] CBC-Complete Blood Cnt No Di ffon 08-31-2025 Erythrocyte distribution width (RBC) [Ratio] 12.6 % Normal 11.6-14.6 [facility] Comment on above: Performed By: #### L 501.9310, L500.4050, L500.4100, L501.9985, L100.0500, L501.9520 #### [facility] [address], [address] Hematocrit (Bld) [Volume fraction] 44.6 % Normal 37-47 [facility] Comment on above: Performed By: #### L 501.9310, L500.4050, L500.4100, L501.9985, L100.0500, L501.9520 #### [facility] [address] [place], [address] Hemoglobin (Bld) [Mass/Vol] 15.2 g/dL High 12.0-15.0 [facility] Comment on above: Performed By: #### L 501.9310, L500.4050, L500.4100, L501.9985, L100.0500, L501.9520 #### [facility] [address] [place], [address] MCH (RBC) [Entitic mass] 32.2 pg High 27.0-32.0 [facility] Comment on above: Performed By: #### L 501.9310, L500.4050, L500.4100, L501.9985, L100.0500, L501.9520 #### [facility] [address] [place], [address] MCHC (RBC) [Mass/Vol] 34.1 g/dL Normal 32-36 [facility] Comment on above: Performed By: #### L 501.9310, L500.4050, L500.4100, L501.9985, L100.0500, L501.9520 #### [facility] [address] [place], [address] MCV (RBC) [Entitic vol] 94.5 fL Normal 81-99 [facility] Comment on above: Performed By: #### L 501.9310, L500.4050, L500.4100, L501.9985, L100.0500, L501.9520 #### [facility] [address] [place], [address] Platelet mean volume (Bld) [Entitic vol] 10.0 fL Normal 6.2-12.0 [facility] Comment on above: Performed By: #### L 501.9310, L500.4050, L500.4100, L501.9985, L100.0500, L501.9520 #### [facility] [address] [place], [address] Platelets (Bld) [#/Vol] 205 10*3/uL Normal 150-450 [facility] Comment on above: Performed By: #### L 501.9310, L500.4050, L500.4100, L501.9985, L100.0500, L501.9520 #### [facility] [address] [place], [address] RBC (Bld) [#/Vol] 4.72 10*6/uL Normal 4.2-5.4 [facility] Comment on above: Performed By: #### L 501.9310, L500.4050, L500.4100, L501.9985, L100.0500, L501.9520 #### [facility] [address] [place], [address] RDW SD 44.0 fl High 35.1-43.9 [facility] Comment on above: Performed By: #### L 501.9310, L500.4050, L500.4100, L501.9985, L100.0500, L501.9520 #### [facility] [address] [place], [address] WBC (Bld) [#/Vol] 7.4 10*3/uL Normal 4.4-11.0 [facility] Comment on above: Performed By: #### L 501.9310, L500.4050, L500.4100, L501.9985, L100.0500, L501.9520 #### [facility] [address] [place], [address] Liver Profileon 08-31-2025 Albumin [Mass/Vol] 4.0 g/dL Normal 3.4-4.8 [facility] Comment on above: Performed By: #### L 501.9310, L500.4050, L500.4100, L501.9985, L100.0500, L501.9520 #### [facility] [address] [place], [address] ALK PHOS 53 U/L Normal 35-104 [facility] Comment on above: Performed By: #### L 501.9310, L500.4050, L500.4100, L501.9985, L100.0500, L501.9520 #### [facility] [address] [place], [address] ALT [Catalytic activity/Vol] 27 U/L Normal <=34 [facility] Comment on above: Performed By: #### L 501.9310, L500.4050, L500.4100, L501.9985, L100.0500, L501.9520 #### [facility] [address] [place], [address] AST [Catalytic activity/Vol] 34 U/L High <=31 [facility] Comment on above: Performed By: #### L 501.9310, L500.4050, L500.4100, L501.9985, L100.0500, L501.9520 #### [facility] [address] [place], [address] Bilirubin [Mass/Vol] 0.61 mg/dL Normal 0.00-1.30 [facility] Comment on above: Performed By: #### L 501.9310, L500.4050, L500.4100, L501.9985, L100.0500, L501.9520 #### [facility] [address] [place], [address] Bilirubin.direct [Mass/Vol] 0.23 mg/dL Normal 0.00-0.30 [facility] Comment on above: Performed By: #### L 501.9310, L500.4050, L500.4100, L501.9985, L100.0500, L501.9520 #### [facility] [address] [place], [address] Globulin (S) [Mass/Vol] 2.8 g/dL Normal 2.2-4.2 [facility] Comment on above: Performed By: #### L 501.9310, L500.4050, L500.4100, L501.9985, L100.0500, L501.9520 #### [facility] [address] [place], [address] T PROT 6.9 g/dL Normal 5.9-8.4 [facility] Comment on above: Performed By: #### L 501.9310, L500.4050, L500.4100, L501.9985, L100.0500, L501.9520 #### [facility] [address] [place], [address] Valproic Acid (Depakene) Lev ene 08-31-2025 VALPROIC ACID 50 ug/mL Normal 50-100 [facility] Comment on above: Result Comment: Valp roic Acid concentrations >100 ug/mL are potentially toxic. Performed By: #### L 501.9310, L500.4050, L500.4100, L501.9985, L100.0500, L501.9520 #### [facility] [address] [place], [address] 36on 08-29-2025 36 Noted Thank you Normal [facility] 36 Cancelled. Normal [facility] 36 Name of caller: Elizabeth Contact phone number: [phone] Relationship to Patient: daughter Provider: Jonathan Practice: [facility] Chief Complaint/Reason for Call: Elizabeth called to cancel pt appt on 08/31/25, she is in [facility] unit. Best time of day caller can be reached: any Patient advised that office/PCP has 24-48 business hours to return their call: N/A Normal [facility] Urine Cultureon 08-21-2025 [facility] Presumptive E. coli Lookout Count >100,000 Presumptive E. coli: REACTION Ampicillin [...] TMP SMX Islt RITCHIE <=20 S Normal [facility] Comment on above: Performed By: #### L 501.9520, L501.9310 #### [facility] [address] [place], [address] Urinalysis, Completeon 08-19 EPI,TRANSITION 0-5 SEEN Normal 0-5 [facility] Comment on above: Order Comment: 410.2 Performed By: #### L 501.9520, L501.9310 #### [facility] [address] [place], [address] BACTERIA 2+ /hpf Normal None Seen [facility] Comment on above: Order Comment: 410.2 Performed By: #### L 501.9520, L501.9310 #### [facility] [address] [place], [address] EPI,SQUAMOUS 0-5 SEEN Normal 5-10 [facility] Comment on above: Order Comment: 410.2 Performed By: #### L 501.9520, L501.9310 #### [facility] [address] [place], [address] Mucus Ql (Urine sed) 1+ /hpf Normal [facility] Comment on above: Order Comment: 410.2 Performed By: #### L 501.9520, L501.9310 #### [facility] [address] [place], [address] WBC 25-50 SEEN Normal 0-5 [facility] Comment on above: Order Comment: 410.2 Performed By: #### L 501.9520, L501.9310 #### [facility] [address] [place], [address] RBC 0 SEEN Normal 0-5 [facility] Comment on above: Order Comment: 410.2 Performed By: #### L 501.9520, L501.9310 #### [facility] [address] [place], [address] CBC-Complete Blood Cnt No Di ffon 08-08-2025 Erythrocyte distribution width (RBC) [Ratio] 12.9 % Normal 11.6-14.6 [facility] Comment on above: Order Comment: 402-1 Performed By: #### L 501.9310, L500.4050, L500.4100, L501.9985, L100.0500, L501.9520 #### [facility] [address] [place], [address] Hematocrit (Bld) [Volume fraction] 45.0 % Normal 37-47 [facility] Comment on above: Order Comment: 402-1 Performed By: #### L 501.9310, L500.4050, L500.4100, L501.9985, L100.0500, L501.9520 #### [facility] [address] [place], [address] Hemoglobin (Bld) [Mass/Vol] 15.2 g/dL High 12.0-15.0 [facility] Comment on above: Order Comment: 402-1 Performed By: #### L 501.9310, L500.4050, L500.4100, L501.9985, L100.0500, L501.9520 #### [facility] [address] [place], [address] MCH (RBC) [Entitic mass] 32.7 pg High 27.0-32.0 [facility] Comment on above: Order Comment: 402-1 Performed By: #### L 501.9310, L500.4050, L500.4100, L501.9985, L100.0500, L501.9520 #### [facility] [address] [place], [address] MCHC (RBC) [Mass/Vol] 33.8 g/dL Normal 32-36 [facility] Comment on above: Order Comment: 402-1 Performed By: #### L 501.9310, L500.4050, L500.4100, L501.9985, L100.0500, L501.9520 #### [facility] [address] [place], [address] MCV (RBC) [Entitic vol] 96.8 fL Normal 81-99 [facility] Comment on above: Order Comment: 402-1 Performed By: #### L 501.9310, L500.4050, L500.4100, L501.9985, L100.0500, L501.9520 #### [facility] [address] [place], [address] Platelet mean volume (Bld) [Entitic vol] 10.2 fL Normal 6.2-12.0 [facility] Comment on above: Order Comment: 402-1 Performed By: #### L 501.9310, L500.4050, L500.4100, L501.9985, L100.0500, L501.9520 #### [facility] [address] [place], [address] Platelets (Bld) [#/Vol] 219 10*3/uL Normal 150-450 [facility] Comment on above: Order Comment: 402-1 Performed By: #### L 501.9310, L500.4050, L500.4100, L501.9985, L100.0500, L501.9520 #### [facility] [address] [place], [address] RBC (Bld) [#/Vol] 4.65 10*6/uL Normal 4.2-5.4 [facility] Comment on above: Order Comment: 402-1 Performed By: #### L 501.9310, L500.4050, L500.4100, L501.9985, L100.0500, L501.9520 #### [facility] [address] [place], [address] RDW SD 45.6 fl High 35.1-43.9 [facility] Comment on above: Order Comment: 402-1 Performed By: #### L 501.9310, L500.4050, L500.4100, L501.9985, L100.0500, L501.9520 #### [facility] [address] [place], [address] WBC (Bld) [#/Vol] 7.6 10*3/uL Normal 4.4-11.0 [facility] Comment on above: Order Comment: 402-1 Performed By: #### L 501.9310, L500.4050, L500.4100, L501.9985, L100.0500, L501.9520 #### [facility] [address] [place], [address] Liver Profileon 08-08-2025 Albumin [Mass/Vol] 4.2 g/dL Normal 3.4-4.8 [facility] Comment on above: Order Comment: 402-1 Performed By: #### L 501.9310, L500.4050, L500.4100, L501.9985, L100.0500, L501.9520 #### [facility] [address] [place], [address] ALK PHOS 56 U/L Normal 35-104 [facility] Comment on above: Order Comment: 402-1 Performed By: #### L 501.9310, L500.4050, L500.4100, L501.9985, L100.0500, L501.9520 #### [facility] [address] [place], [address] ALT [Catalytic activity/Vol] 22 U/L Normal <=34 [facility] Comment on above: Order Comment: 402-1 Performed By: #### L 501.9310, L500.4050, L500.4100, L501.9985, L100.0500, L501.9520 #### [facility] [address] [place], [address] AST [Catalytic activity/Vol] 29 U/L Normal <=31 [facility] Comment on above: Order Comment: 402-1 Performed By: #### L 501.9310, L500.4050, L500.4100, L501.9985, L100.0500, L501.9520 #### [facility] [address] [place], [address] Bilirubin [Mass/Vol] 0.48 mg/dL Normal 0.00-1.30 [facility] Comment on above: Order Comment: 402-1 Performed By: #### L 501.9310, L500.4050, L500.4100, L501.9985, L100.0500, L501.9520 #### [facility] [address] [place], [address] Bilirubin.direct [Mass/Vol] 0.19 mg/dL Normal 0.00-0.30 [facility] Comment on above: Order Comment: 402-1 Performed By: #### L 501.9310, L500.4050, L500.4100, L501.9985, L100.0500, L501.9520 #### [facility] [address] [place], [address] Globulin (S) [Mass/Vol] 2.8 g/dL Normal 2.2-4.2 [facility] Comment on above: Order Comment: 402-1 Performed By: #### L 501.9310, L500.4050, L500.4100, L501.9985, L100.0500, L501.9520 #### [facility] [address] [place], [address] T PROT 7.0 g/dL Normal 5.9-8.4 [facility] Comment on above: Order Comment: 402-1 Performed By: #### L 501.9310, L500.4050, L500.4100, L501.9985, L100.0500, L501.9520 #### [facility] [address] [place], [address] Valproic Acid (Depakene) Lev ene 08-08-2025 VALPROIC ACID 57 ug/mL Normal 50-100 [facility] Comment on above: Order Comment: 402-1 Result Comment: Valp roic Acid concentrations >100 ug/mL are potentially toxic. Performed By: #### L 501.9310, L500.4050, L500.4100, L501.9985, L100.0500, L501.9520 #### [facility] [address], [address] T4 Total, Thyroxinon 025 T4 [Mass/Vol] 6.3 ug/dL Normal 4.8-13.9 [facility] Comment on above: Order Comment: 410.2 Performed By: #### L 501.9520, L501.9310 #### [facility] [address], [address] Thyroid Stim Hormone (TSH)on 07-18-2025 TSH 2.160 uIU/mL Normal 0.300-4.200 [facility] Comment on above: Order Comment: 410.2 Performed By: #### L 501.9520, L501.9310 #### [facility] [address] [place], [address] Ammoniaon 06-01-2025 Ammonia (P) [Moles/Vol] 21.1 umol/L Normal 11-51 [facility] Comment on above: Order Comment: 410.2 Performed By: #### L 501.9520, L501.9310 #### [facility] [address] [place], [address] CBC-Complete Blood Cnt No Tatiana lemon 06-01-2025 Erythrocyte distribution width (RBC) [Ratio] 13.9 % Normal 11.6-14.6 [facility] Comment on above: Order Comment: 410.2 Performed By: #### L 501.9520, L501.9310 #### [facility] [address] [place], [address] Hematocrit (Bld) [Volume fraction] 41.3 % Normal 37-47 [facility] Comment on above: Order Comment: 410.2 Performed By: #### L 501.9520, L501.9310 #### [facility] [address] [place], [address] Hemoglobin (Bld) [Mass/Vol] 13.7 g/dL Normal 12.0-15.0 [facility] Comment on above: Order Comment: 410.2 Performed By: #### L 501.9520, L501.9310 #### [facility] [address] [place], [address] MCH (RBC) [Entitic mass] 31.6 pg Normal 27.0-32.0 [facility] Comment on above: Order Comment: 410.2 Performed By: #### L 501.9520, L501.9310 #### [facility] [address] [place], [address] MCHC (RBC) [Mass/Vol] 33.2 g/dL Normal 32-36 [facility] Comment on above: Order Comment: 410.2 Performed By: #### L 501.9520, L501.9310 #### [facility] [address] [place], [address] MCV (RBC) [Entitic vol] 95.2 fL Normal 81-99 [facility] Comment on above: Order Comment: 410.2 Performed By: #### L 501.9520, L501.9310 #### [facility] [address] [place], [address] Platelet mean volume (Bld) [Entitic vol] 9.8 fL Normal 6.2-12.0 [facility] Comment on above: Order Comment: 410.2 Performed By: #### L 501.9520, L501.9310 #### [facility] [address] [place], [address] Platelets (Bld) [#/Vol] 215 10*3/uL Normal 150-450 [facility] Comment on above: Order Comment: 410.2 Performed By: #### L 501.95, L501.9310 #### [facility] [address] [place], [address] RBC (Bld) [#/Vol] 4.34 10*6/uL Normal 4.2-5.4 [facility] Comment on above: Order Comment: 410.2 Performed By: #### L 501.9520, L501.9310 #### [facility] [address] [place], [address] RDW SD 49.1 fl High 35.1-43.9 [facility] Comment on above: Order Comment: 410.2 Performed By: #### L 501.9520, L501.9310 #### [facility] [address] [place], [address] WBC (Bld) [#/Vol] 6.6 10*3/uL Normal 4.4-11.0 [facility] Comment on above: Order Comment: 410.2 Performed By: #### L 501.95, L501.9310 #### [facility] [address] [place], [address] Liver Profileon 06-01-2025 Albumin [Mass/Vol] 3.9 g/dL Normal 3.4-4.8 [facility] Comment on above: Order Comment: 410.2 Performed By: #### L 501.9520, L501.9310 #### [facility] [address] [place], [address] ALK PHOS 69 U/L Normal 35-104 [facility] Comment on above: Order Comment: 410.2 Performed By: #### L 501.9520, L501.9310 #### [facility] [address] [place], [address] ALT [Catalytic activity/Vol] 13 U/L Normal <=34 [facility] Comment on above: Order Comment: 410.2 Performed By: #### L 501.9520, L501.9310 #### [facility] [address] [place], [address] AST [Catalytic activity/Vol] 22 U/L Normal <=31 [facility] Comment on above: Order Comment: 410.2 Performed By: #### L 501.9520, L501.9310 #### [facility] [address] [place], [address] Bilirubin [Mass/Vol] 0.34 mg/dL Normal 0.00-1.30 [facility] Comment on above: Order Comment: 410.2 Performed By: #### L 501.9520, L501.9310 #### [facility] [address] [place], [address] Bilirubin.direct [Mass/Vol] 0.12 mg/dL Normal 0.00-0.30 [facility] Comment on above: Order Comment: 410.2 Performed By: #### L 501.9520, L501.9310 #### [facility] [address] [place], [address] Globulin (S) [Mass/Vol] 3.1 g/dL Normal 2.2-4.2 [facility] Comment on above: Order Comment: 410.2 Performed By: #### L 501.9520, L501.9310 #### [facility] [address] [place], [address] T PROT 7.0 g/dL Normal 5.9-8.4 [facility] Comment on above: Order Comment: 410.2 Performed By: #### L 501.9520, L501.9310 #### [facility] [address] [place], [address] Valproic Acid (Depakene) Lev ene 06-01-2025 VALPROIC ACID 40 ug/mL Low 50-100 [facility] Comment on above: Order Comment: 410.2 Result Comment: Valp roic Acid concentrations >100 ug/mL are potentially toxic. Performed By: #### L 501.9520, L501.9310 #### [facility] [address] [place], [address] T4 Total, Thyroxinon 025 T4 [Mass/Vol] 5.3 ug/dL Normal 4.8-13.9 [facility] Comment on above: Order Comment: 410.2 Performed By: #### L 501.9520, L501.9310 #### [facility] [address] [place], [address] Thyroid Stim Hormone (TSH)on 05-30-2025 TSH 4.480 uIU/mL High 0.300-4.200 [facility] Comment on above: Order Comment: 402-1 Performed By: #### L 501.9310, L500.4050, L500.4100, L501.9985, L100.0500, L501.9520 #### [facility] [address] [place], [address] CBC-Complete Blood Cnt No Di ffon 03-10-2025 Erythrocyte distribution width (RBC) [Ratio] 12.8 % Normal 11.6-14.6 [facility] Comment on above: Order Comment: 402-1 Performed By: #### L 501.9310, L500.4050, L500.4100, L501.9985, L100.0500, L501.9520 #### [facility] [address], [address] Hematocrit (Bld) [Volume fraction] 39.0 % Normal 37-47 [facility] Comment on above: Order Comment: 402-1 Performed By: #### L 501.9310, L500.4050, L500.4100, L501.9985, L100.0500, L501.9520 #### [facility] [address] [place], [address] Hemoglobin (Bld) [Mass/Vol] 13.2 g/dL Normal 12.0-15.0 [facility] Comment on above: Order Comment: 402-1 Performed By: #### L 501.9310, L500.4050, L500.4100, L501.9985, L100.0500, L501.9520 #### [facility] [address] [place], [address] MCH (RBC) [Entitic mass] 31.0 pg Normal 27.0-32.0 [facility] Comment on above: Order Comment: 402-1 Performed By: #### L 501.9310, L500.4050, L500.4100, L501.9985, L100.0500, L501.9520 #### [facility] [address] [place], [address] MCHC (RBC) [Mass/Vol] 33.8 g/dL Normal 32-36 [facility] Comment on above: Order Comment: 402-1 Performed By: #### L 501.9310, L500.4050, L500.4100, L501.9985, L100.0500, L501.9520 #### [facility] [address] [place], [address] MCV (RBC) [Entitic vol] 91.5 fL Normal 81-99 [facility] Comment on above: Order Comment: 402-1 Performed By: #### L 501.9310, L500.4050, L500.4100, L501.9985, L100.0500, L501.9520 #### [facility] [address] [place], [address] Platelet mean volume (Bld) [Entitic vol] 9.6 fL Normal 6.2-12.0 [facility] Comment on above: Order Comment: 402-1 Performed By: #### L 501.9310, L500.4050, L500.4100, L501.9985, L100.0500, L501.9520 #### [facility] [address] [place], [address] Platelets (Bld) [#/Vol] 291 10*3/uL Normal 150-450 [facility] Comment on above: Order Comment: 402-1 Performed By: #### L 501.9310, L500.4050, L500.4100, L501.9985, L100.0500, L501.9520 #### [facility] [address] [place], [address] RBC (Bld) [#/Vol] 4.26 10*6/uL Normal 4.2-5.4 [facility] Comment on above: Order Comment: 402-1 Performed By: #### L 501.9310, L500.4050, L500.4100, L501.9985, L100.0500, L501.9520 #### [facility] [address] [place], [address] RDW SD 42.4 fl Normal 35.1-43.9 [facility] Comment on above: Order Comment: 402-1 Performed By: #### L 501.9310, L500.4050, L500.4100, L501.9985, L100.0500, L501.9520 #### [facility] [address] [place], [address] WBC (Bld) [#/Vol] 8.2 10*3/uL Normal 4.4-11.0 [facility] Comment on above: Order Comment: 402-1 Performed By: #### L 501.9310, L500.4050, L500.4100, L501.9985, L100.0500, L501.9520 #### [facility] [address] [place], [address] Comprehensive Metabolic Prof ilon 03-10-2025 Albumin [Mass/Vol] 4.1 g/dL Normal 3.4-4.8 [facility] Comment on above: Order Comment: 402-1 Performed By: #### L 501.9310, L500.4050, L500.4100, L501.9985, L100.0500, L501.9520 #### [facility] [address] [place], [address] Albumin/Globulin [Mass ratio] 1.4 {ratio} Normal 0.9-2.4 [facility] Comment on above: Order Comment: 402-1 Performed By: #### L 501.9310, L500.4050, L500.4100, L501.9985, L100.0500, L501.9520 #### [facility] [address] [place], [address] ALK PHOS 73 U/L Normal 35-104 [facility] Comment on above: Order Comment: 402-1 Performed By: #### L 501.9310, L500.4050, L500.4100, L501.9985, L100.0500, L501.9520 #### [facility] [address] [place], [address] ALT [Catalytic activity/Vol] 14 U/L Normal <=34 [facility] Comment on above: Order Comment: 402-1 Performed By: #### L 501.9310, L500.4050, L500.4100, L501.9985, L100.0500, L501.9520 #### [facility] [address] [place], [address] AST [Catalytic activity/Vol] 21 U/L Normal <=31 [facility] Comment on above: Order Comment: 402-1 Performed By: #### L 501.9310, L500.4050, L500.4100, L501.9985, L100.0500, L501.9520 #### [facility] [address] [place], [address] Bilirubin [Mass/Vol] 0.26 mg/dL Normal 0.00-1.30 [facility] Comment on above: Order Comment: 402-1 Performed By: #### L 501.9310, L500.4050, L500.4100, L501.9985, L100.0500, L501.9520 #### [facility] [address] [place], [address] BUN/CRE 16.2 RATIO Normal 10-20 [facility] Comment on above: Order Comment: 402-1 Performed By: #### L 501.9310, L500.4050, L500.4100, L501.9985, L100.0500, L501.9520 #### [facility] [address] [place], [address] Calcium [Mass/Vol] 9.6 mg/dL Normal 7.6-11.0 [facility] Comment on above: Order Comment: 402-1 Performed By: #### L 501.9310, L500.4050, L500.4100, L501.9985, L100.0500, L501.9520 #### [facility] [address] [place], [address] Chloride [Moles/Vol] 107 mmol/L Normal 98-108 [facility] Comment on above: Order Comment: 402-1 Performed By: #### L 501.9310, L500.4050, L500.4100, L501.9985, L100.0500, L501.9520 #### [facility] [address] [place], [address] CO2 [Moles/Vol] 24.8 mmol/L Normal 21.0-32.0 [facility] Comment on above: Order Comment: 402-1 Performed By: #### L 501.9310, L500.4050, L500.4100, L501.9985, L100.0500, L501.9520 #### [facility] [address] [place], [address] Creatinine [Mass/Vol] 0.82 mg/dL Normal 0.70-1.20 [facility] Comment on above: Order Comment: 402-1 Performed By: #### L 501.9310, L500.4050, L500.4100, L501.9985, L100.0500, L501.9520 #### [facility] [address] [place], [address] GAP 11 Normal 5-15 [facility] Comment on above: Order Comment: 402-1 Performed By: #### L 501.9310, L500.4050, L500.4100, L501.9985, L100.0500, L501.9520 #### [facility] [address] [place], [address] GFR/1.73 sq M.predicted among non-blacks MDRD (S/P/Bld) [Vol rate/Area] 74 mL/min/{1.73_m2} Normal >60 [facility] Comment on above: Order Comment: 402-1 Result Comment: mL/m in/1.73m2 CKD-EPI Creatinine Equation (2020) Performed By: #### L 501.9310, L500.4050, L500.4100, L501.9985, L100.0500, L501.9520 #### [facility] [address] [place], [address] Globulin (S) [Mass/Vol] 3.0 g/dL Normal 2.2-4.2 [facility] Comment on above: Order Comment: 402-1 Performed By: #### L 501.9310, L500.4050, L500.4100, L501.9985, L100.0500, L501.9520 #### [facility] [address] [place], [address] Glucose [Mass/Vol] 102 mg/dL High 70-99 [facility] Comment on above: Order Comment: 402-1 Performed By: #### L 501.9310, L500.4050, L500.4100, L501.9985, L100.0500, L501.9520 #### [facility] [address] [place], [address] Potassium [Moles/Vol] 4.1 mmol/L Normal 3.3-5.1 [facility] Comment on above: Order Comment: 402-1 Performed By: #### L 501.9310, L500.4050, L500.4100, L501.9985, L100.0500, L501.9520 #### [facility] [address] [place], [address] Sodium [Moles/Vol] 143 mmol/L Normal 133-145 [facility] Comment on above: Order Comment: 402-1 Performed By: #### L 501.9310, L500.4050, L500.4100, L501.9985, L100.0500, L501.9520 #### [facility] [address] [place], [address] T PROT 7.2 g/dL Normal 5.9-8.4 [facility] Comment on above: Order Comment: 402-1 Performed By: #### L 501.9310, L500.4050, L500.4100, L501.9985, L100.0500, L501.9520 #### [facility] [address] [place], [address] Urea nitrogen [Mass/Vol] 13 mg/dL Normal 4-19 [facility] Comment on above: Order Comment: 402-1 Performed By: #### L 501.9310, L500.4050, L500.4100, L501.9985, L100.0500, L501.9520 #### [facility] [address] [place], [address] Hemoglobin A1con 03-10-2025 HbA1c (Bld) [Mass fraction] 5.7 % Normal <=5.6 [facility] Comment on above: Order Comment: 402-1 Result Comment: Norm al < 5.7 % Prediabetic 5.7 - 6.4 % Diabetic >or= 6.5 % Please note range changes. Performed By: #### L 501.9310, L500.4050, L500.4100, L501.9985, L100.0500, L501.9520 #### [facility] [address] [place], [address] Lipid Profileon 03-10-2025 CHOL:HDL 3.43 Normal [facility] Comment on above: Order Comment: 402-1 Performed By: #### L 501.9310, L500.4050, L500.4100, L501.9985, L100.0500, L501.9520 #### [facility] [address] [place], [address] Cholesterol [Mass/Vol] 214 mg/dL High <=200 [facility] Comment on above: Order Comment: 402-1 Result Comment: Chol esterol level, Desirable <200 mg/dL Borderline high cholesterol 200-239 mg/dL High cholesterol >=240 mg/dL Recommendations of the NCEP Adult Treatment Panel for the following risk-cutoff thresholds for the [place] population. Performed By: #### L 501.9310, L500.4050, L500.4100, L501.9985, L100.0500, L501.9520 #### [facility] [address] [place], [address] Cholesterol in HDL [Mass/Vol] 62 mg/dL Normal [facility] Comment on above: Order Comment: 402-1 Result Comment: María onal Cholesterol Education Program (NCEP) guidelines: <40 mg/dL: Low HDL-cholesterol (major risk factor for CHD) >= 60 mg/dL: High HDL-cholesterol (negative risk factor for CHD) HDL-cholesterol is affected by a number of factors, e.g. smoking, exercise, hormones, sex and age. Performed By: #### L 501.9310, L500.4050, L500.4100, L501.9985, L100.0500, L501.9520 #### [facility] [address] [place], [address] Cholesterol in LDL [Mass/Vol] 136 mg/dL Normal [facility] Comment on above: Order Comment: 402-1 Result Comment: Bord hixvsk=825-969 mg/dL Higher Jzvp=789 mg/dL or greater Performed By: #### L 501.9310, L500.4050, L500.4100, L501.9985, L100.0500, L501.9520 #### [facility] [address] [place], [address] Cholesterol in VLDL [Mass/Vol] 16 mg/dL Normal 5-40 [facility] Comment on above: Order Comment: 402-1 Performed By: #### L 501.9310, L500.4050, L500.4100, L501.9985, L100.0500, L501.9520 #### [facility] [address] [place], [address] Triglyceride [Mass/Vol] 78 mg/dL Normal [facility] Comment on above: Order Comment: 402-1 Result Comment: The drugs N-Acetylcysteine and Metamizole may falsely depress this assay. Normal range: <150 mg/dL Borderline High: 150-199 mg/dL High: 200-499 mg/dL Very High: >500 mg/dL Performed By: #### L 501.9310, L500.4050, L500.4100, L501.9985, L100.0500, L501.9520 #### [facility] [address] [place], [place], [address] T4 Total, Thyroxinon 025 T4 [Mass/Vol] 5.1 ug/dL Normal 4.8-13.9 [facility] Comment on above: Order Comment: 402- Performed By: #### L 501.9310, L500.4050, L500.4100, L501.9985, L100.0500, L501.9520 #### [facility] [address] [facility] [place], [place], [address] Thyroid Stim Hormone (TSH)on 03-10-2025 TSH 4.260 uIU/mL High 0.300-4.200 [facility] Comment on above: Order Comment: 402- Performed By: #### L 501.9310, L500.4050, L500.4100, L501.9985, L100.0500, L501.9520 #### [facility] [address] [facility] [place], [place], [address] ECG 12 leadOrdered By: Fabricio Moctezuma on 02-24-2025 Heart rate 63 /min bpm [address] Work Phone: P [place] [address] Work Phone: NE Interval [address] Work Phone: QRS [place] -[address] Work Phone: QRSD Interval 68 ms [place] Work Phone: QT Interval [address] Work Phone: QTC Interval [address] Work Phone: T Wave [place] [address] Work Phone: [facility] Work Phone: ECG 12 leadon 02-24-2025 Fabricio Moctezuma MD - 02/24/2025 IMPRESSION: Sinus rhythm Ventricular premature complex Abnormal R-wave progression, early transition No previous ECG available for comparison Electronically Signed On 02-24-2025 10:47:30 EDT by Fabricio Moctezuma [facility] 36on 02-23-2025 36 Requested papers wer e signed by Dr Castillo and faxed to [phone]. [place] [address] Thanks! Patient will be moving into [facility]. They need the following per daughter: -History and Physical -Face Sheet -Med List -Progress Notes -Discharge orders ( statement from the physician recommending Technical Delivery Manager Care Placement) They could be sent by email or fax to [email or web address] F: [phone] Can you print out today's note, today's letter, a facesheet, and a medication list? Once I sign the note/letter, then this can be faxed to [facility]. Thanks! [place] [address] I spoke to Elizabeth and she said it was recently changed to: 25 mg at 10:00 am, 25 mg at 2:00 pm, 50 mg at 5:00 pm and 50 mg at 8:00 pm [facility] 36 Can you call and confirm the quetiapine (Seroquel) dosing with daughter Elizabeth? We have the dose as 50 mg at lunch, 50 mg at 4 pm, and 100 mg at 8 pm. I want to make sure it is correct on the Med list for the [facility]itentiary [facility] Office Visiton 02-23-2025 Follow-up visit [id number] [place] 1945 F Date Provider Department Center 02/23/2025 [id number]-WAYUDCXGUNJAN CASTILLO [facility] None Family History Problem Relation Age of Onset Dementia Maternal Grandmother Family Status - Relation Status Age at Maternal Grandmother Level of Service:42898 NE OFFICE/OUTPATIENT ESTABLISHED HIGH MDM 40 MIN Reason for Visit and Comments: Memory Loss [66] Normal [facility] Progress Noteon 02-23-2025 Progress Note [facility] [place] [address] Dept: [phone] Dept Loc: [phone] Visit type: [facility] Follow Up Visit Reason for Visit: [...] -Plan is for patient to move into [facility] care unit. I agree that she is appropriate for terminal operator care placement at this time due [...] Disease, hypertension, depression who presents to the [facility] for a follow-up visit. The patient [...] for sleep as well. MMSE 11/07 Received [employer] message from the family: Patient will be moving into a memory care unit at [facility]. Will do the H and P for admission at today's appointment History obtained from caregiver(s): Son Hao -Her cognition has continued to decline. Communication skills have really declined. Doesn't comprehend what family says - even instructions like wash your hands. -Unsteady on her feet. Not using a cane or a walker. No falls recently. -Mood: Does get mad at times. Can be more mean. Gets more agitation in the evenings. Will be restless and say she wants to go home. Occasionally she has tried to become physically combative with her daughter in the evenings (when she wants to escape). -Has a 24 hour hose builder. -Sleep: Better now. -Appetite: Still eats well. Does play with her food a lot. -Hallucinations: No -No physical health issues. -Goes to on walks with her caregiver. History obtained from patient: -Things going well. -Memory: pretty good. No trouble noticed. -Mood: Doing well. Doesn't feel down or hopeless. No stress or worry. -Sleep: I like to go to bed. -Appetite: Good. -Physical health: Good. No aches or pains. No fevers or nausea. Stomach feels good. Breathing feels fine. -Vision: wears glasses. She says: I see you. -Hallucinations: none. -Hearing: good. -Walking: good. Reviewed [...] content not included)... Normal [facility] Progress Note Review of Systems Constitutional: Negative [...] patient is nervous/anxious. 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 Activities: watches tv, spends time with cat >>02/17/22 just went on vacation, walks in [place], plays cards, plays piano, visiting friends >>08/22/22 outside, TV, cat sits out with neighbor, temple, >>02/26/23 walks, visits with neighbors, temple, kids' sports games, just came back from vacation >>10/22/23 same >>02/25/24 visits with aide, getting to physical therapy, going on walks >>08/25/24 visits with aides, goes to [facility], goes to [facility] >>02/23/25 same Exercise: walks around her house >>02/17/22 walking, weights >>08/22/22 walks around the condo or in her neighborhood >>02/26/23 walks >>10/22/23 walks >>02/25/24 walks, physical therapy >>08/25/24 walking, goint to [facility] Finances: meeting soon with Medicaid ip technology transactions attorney Healthcare Power of Board Filler: Yes, Daughter Elizabeth Financial Power of Board Filler: Yes, Daughter Elizabeth Living Will: Yes Guardian:No [...] sees her sometimes >>02/25/24 has 24 hour geriatric care managerXochitl who is living with her, another aide [...] members. SW suggested that daughter check out [email or web address] to check out any other prod (more content not included)... Normal [facility] 36on 01-24-2025 36 Request for refill received from interface Last appointment: 08/25/2024 Next appointment: 02/23/2025 Pharmacy confirmed: [x] Yes [] No Normal [facility] NM PET/CT [facility] NG 09-29-2024 NM PET/CT [facility] * [...] purposes. There are no significant incidental findings. [facility] Examiner: TOSIN Transcribe Date/Time: Oct 03 2024 8:53A Dictated by : CARIE MELGAR MD This examination was interpreted and the report reviewed and electronically signed by: CARIE MELGAR MD on Oct 03 2024 8:56AM EST [id number] Normal [facility] CBC W/Diff, Automatedon 11-1 Absolute Lymph 1.36 X10 3/uL Normal 0.83-4.51 [facility] Comment on above: Performed By: #### L 500.4050, L100.0100, L500.4100 #### [facility] [address] [place], [address] Absolute Neut 4.0 X10 3/uL Normal 2.0-7.7 [facility] Comment on above: Performed By: #### L 500.4050, L100.0100, L500.4100 #### [facility] [address] [place], [address] Basophils/100 WBC (Bld) 0.5 % Normal 0-1 [facility] Comment on above: Performed By: #### L 500.4050, L100.0100, L500.4100 #### [facility] [address] [place], [address] Eosinophils/100 WBC (Bld) 2.0 % Normal 0-5 [facility] Comment on above: Performed By: #### L 500.4050, L100.0100, L500.4100 #### [facility] [address] [place], [address] Erythrocyte distribution width (RBC) [Ratio] 12.9 % Normal 11.6-14.6 [facility] Comment on above: Performed By: #### L 500.4050, L100.0100, L500.4100 #### [facility] [address] [place], [address] Hematocrit (Bld) [Volume fraction] 39.3 % Normal 37-47 [facility] Comment on above: Performed By: #### L 500.4050, L100.0100, L500.4100 #### [facility] [address] [place], [address] Hemoglobin (Bld) [Mass/Vol] 13.1 g/dL Normal 12.0-15.0 [facility] Comment on above: Performed By: #### L 500.4050, L100.0100, L500.4100 #### [facility] [address] [place], [address] IG% 0.700 Normal 0.0-0.9 [facility] Comment on above: Result Comment: IG% - Immature Granulocytes (promyelocytes, myelocytes and metamyelocytes) > 1% indicates that a LEFT SHIFT is Present. Performed By: #### L 500.4050, L100.0100, L500.4100 #### [facility] [address] [place], [address] Lymphocytes/100 WBC (Bld) 22.9 % Normal 19-41 [facility] Comment on above: Performed By: #### L 500.4050, L100.0100, L500.4100 #### [facility] [address] [place], [address] MCH (RBC) [Entitic mass] 31.2 pg Normal 27.0-32.0 [facility] Comment on above: Performed By: #### L 500.4050, L100.0100, L500.4100 #### [facility] [address] [place], [address] MCHC (RBC) [Mass/Vol] 33.3 g/dL Normal 32-36 [facility] Comment on above: Performed By: #### L 500.4050, L100.0100, L500.4100 #### [facility] [address] [place], [address] MCV (RBC) [Entitic vol] 93.6 fL Normal 81-99 [facility] Comment on above: Performed By: #### L 500.4050, L100.0100, L500.4100 #### [facility] [address] [place], [address] Monocytes/100 WBC (Bld) 7.4 % Normal 0-10 [facility] Comment on above: Performed By: #### L 500.4050, L100.0100, L500.4100 #### [facility] [address] [place], [address] Neutrophils/100 WBC (Bld) 66.5 % Normal 47-70 [facility] Comment on above: Performed By: #### L 500.4050, L100.0100, L500.4100 #### [facility] [address] [place], [address] Nucleated RBC (Bld) [#/Vol] 0 10*3/uL Normal 0-5 [facility] Comment on above: Performed By: #### L 500.4050, L100.0100, L500.4100 #### [facility] [address] [place], [address] Platelet mean volume (Bld) [Entitic vol] 10.5 fL Normal 6.2-12.0 [facility] Comment on above: Performed By: #### L 500.4050, L100.0100, L500.4100 #### [facility] [address] [place], [address] Platelets (Bld) [#/Vol] 255 10*3/uL Normal 150-450 [facility] Comment on above: Performed By: #### L 500.4050, L100.0100, L500.4100 #### [facility] [address] [place], [address] RBC (Bld) [#/Vol] 4.20 10*6/uL Normal 4.2-5.4 [facility] Comment on above: Performed By: #### L 500.4050, L100.0100, L500.4100 #### [facility] [address] [place], [address] RDW SD 44.2 fl High 35.1-43.9 [facility] Comment on above: Performed By: #### L 500.4050, L100.0100, L500.4100 #### [facility] [address] [place], [address] WBC (Bld) [#/Vol] 6.0 10*3/uL Normal 4.4-11.0 [facility] Comment on above: Performed By: #### L 500.4050, L100.0100, L500.4100 #### [facility] [address] [place], [address] Comprehensive Metabolic [facility] 09-21-2024 Albumin [Mass/Vol] 3.7 g/dL Normal 3.2-5.0 [facility] Comment on above: Performed By: #### L 500.4050, L100.0100, L500.4100 #### [facility] [address] [place], [address] Albumin/Globulin [Mass ratio] 1.0 {ratio} Normal 0.9-2.4 [facility] Comment on above: Performed By: #### L 500.4050, L100.0100, L500.4100 #### [facility] [address] [place], [address] ALK P 86 U/L Normal 45-117 [facility] Comment on above: Performed By: #### L 500.4050, L100.0100, L500.4100 #### [facility] [address] [place], [address] ALT [Catalytic activity/Vol] 18 U/L Normal 13-56 [facility] Comment on above: Performed By: #### L 500.4050, L100.0100, L500.4100 #### [facility] [address] [place], [address] AST [Catalytic activity/Vol] 17 U/L Normal 15-37 [facility] Comment on above: Performed By: #### L 500.4050, L100.0100, L500.4100 #### [facility] [address] [place], [address] Bilirubin [Mass/Vol] 0.30 mg/dL Normal 0.20-1.00 [facility] Comment on above: Result Comment: For patients on eltrombopag therapy, use of Dimension [place] TBIL is not recommended. Performed By: #### L 500.4050, L100.0100, L500.4100 #### [facility] [address] [place], [address] BUN/CRE 14.4 RATIO Normal 10-20 [facility] Comment on above: Performed By: #### L 500.4050, L100.0100, L500.4100 #### [facility] [address] [place], [address] CA,Total 9.5 mg/dL Normal 8.5-10.1 [facility] Comment on above: Performed By: #### L 500.4050, L100.0100, L500.4100 #### [facility] [address] [place], [address] Chloride [Moles/Vol] 107 mmol/L Normal 98-107 [facility] Comment on above: Performed By: #### L 500.4050, L100.0100, L500.4100 #### [facility] [address] [place], [address] CO2 [Moles/Vol] 29.0 mmol/L Normal 21.0-32.0 [facility] Comment on above: Performed By: #### L 500.4050, L100.0100, L500.4100 #### [facility] [address] [place], [address] Creatinine [Mass/Vol] 1.04 mg/dL High 0.55-1.02 [facility] Comment on above: Result Comment: The validity of the calculated GFR GFRAA in patients over 70 years has not been determined. Clinical correlation is essential. Performed By: #### L 500.4050, L100.0100, L500.4100 #### [facility] [address] [place], [address] EST GFR - AA 66 mL/min Normal >60 [facility] Comment on above: Result Comment: Afri can [place]an GFR Calc Performed By: #### L 500.4050, L100.0100, L500.4100 #### [facility] [address] [place], [address] GAP 4 Low 5-15 [facility] Comment on above: Performed By: #### L 500.4050, L100.0100, L500.4100 #### [facility] [address] [place], [address] GFR/1.73 sq M.predicted among non-blacks MDRD (S/P/Bld) [Vol rate/Area] 54 mL/min/{1.73_m2} Low >60 [facility] Comment on above: Result Comment: Non- GFR Calc Performed By: #### L 500.4050, L100.0100, L500.4100 #### [facility] [address] [place], [address] Globulin (S) [Mass/Vol] 3.6 g/dL Normal 2.2-4.2 [facility] Comment on above: Performed By: #### L 500.4050, L100.0100, L500.4100 #### [facility] [address] [place], [address] Glucose [Mass/Vol] 135 mg/dL High 74-106 [facility] Comment on above: Result Comment: Fast ing Glucose result greater than or equal to 126 mg/dL suggests DIABETES MELLITUS per A.D.A. criteria. Performed By: #### L 500.4050, L100.0100, L500.4100 #### [facility] [address] [place], [address] Potassium [Moles/Vol] 3.5 mmol/L Normal 3.5-5.1 [facility] Comment on above: Performed By: #### L 500.4050, L100.0100, L500.4100 #### [facility] [address] [place], [address] Sodium [Moles/Vol] 141 mmol/L Normal 136-145 [facility] Comment on above: Performed By: #### L 500.4050, L100.0100, L500.4100 #### [facility] [address] [place], [address] T PROT 7.3 g/dL Normal 6.4-8.2 [facility] Comment on above: Performed By: #### L 500.4050, L100.0100, L500.4100 #### [facility] [address] [place], [address] Urea nitrogen [Mass/Vol] 15 mg/dL Normal 7-18 [facility] Comment on above: Performed By: #### L 500.4050, L100.0100, L500.4100 #### [facility] [address] [place], [address] Lipid Profileon 09-21-2024 Cholesterol [Mass/Vol] 205 mg/dL High 200 [facility] Comment on above: Result Comment: <200 mg/dL Desirable 200-240 mg/dL Borderline >240 mg/dL High Risk Performed By: #### L 501.9520, L501.9310 #### [facility] [address] [place], [address] Cholesterol in HDL [Mass/Vol] 59 mg/dL Normal [facility] Comment on above: Result Comment: The drugs N-Acetylcysteine and Metamizole may falsely depress this assay. Reference Range HDL <40 mg/dL Low HDL Cholesterol HDL >or= 60 mg/dL High HDL Cholesterol Performed By: #### L 501.9520, L501.9310 #### [facility] [address] [place], [address] Cholesterol in LDL [Mass/Vol] 114 mg/dL Normal 0-130 [facility] Comment on above: Performed By: #### L 501.9520, L501.9310 #### [facility] [address] [place], [address] Cholesterol in VLDL [Mass/Vol] 32 mg/dL Normal 5-40 [facility] Comment on above: Performed By: #### L 501.9520, L501.9310 #### [facility] [address] [place], [address] Triglyceride [Mass/Vol] 162 mg/dL Normal [facility] Comment on above: Result Comment: The drugs N-Acetylcysteine and Metamizole may falsely depress this assay. Serum Triglycerides Reference Interval Normal <150 mg/dL Borderline high 150 - 199 mg/dL High 200 - 499 mg/dL Very High > or = 500 mg/dL Performed By: #### L 501.9520, L501.9310 #### [facility] [address] [place], [address] Zoe 09-19-2024 CNPN Telephone ([facility]) QUANDAVIDCYNDEE A ([id number]) 1945 F Date Time Provider Department 09/19/24 AMILCAR BRADFORD MD [facility] During your visit today, we recorded the following information about you: Abdon Moctezuma, (R) 09/19/2024 10:13 AM Signed CYNDEE AURECHELITA [id number] DOS: 09/29/24 PET INJ: 1430 PET 4: 1530 APPT NOTES: DO NOT SUBMIT AUTH TO INSURANCE, BILLED TO [employer] ANU [id number] PET BRAIN AMYVID [employer] TRANSMITTAL FORM [...] Status:Closed by ABDON MOCTEZUMA on 09/19/24 [facility] HNO ID: [id number] Author: LYDIA PIÑA RT(R) Service: Radiology Author Type: Technologist Type: [...] PATIENT PRESENTS WITH AN IMPLANTABLE OR ATTACHED MATHEMATICS INSTRUCTOR: No ALLERGIES: Reviewed and unchanged CONTRAST ALLERGY: [...] RADIOLOGY DEPARTMENT: CT; Exam(s) Completed: Abdomen/Pelvis SIGNATURE: Lydia Piña RT(R) PATIENT NAME: Cyndee Vital DATE: August 30, 2024 TIME: 12:40 PM Normal [facility] CBC W Auto Differential pane l (Bld)on 08-30-2024 Basophils (Bld) [#/Vol] 0.03 10*3/uL Normal <0.11 [facility] Comment on above: Order Comment: Speci men Type: BLOOD SPECIMENOrdering Facility: [facility] Address: [address] [place] [address] Performed By: #### 5 7021-8 ####[facility] LABORATORYCLIA [id number] [place] [address] [place] Basophils/100 WBC (Bld) 0.3 % Normal [facility] Comment on above: Order Comment: Speci men Type: BLOOD SPECIMENOrdering Facility: [facility] Address: [address] [place] [address] Performed By: #### 5 7021-8 ####[facility] LABORATORYCLIA [id number] [place] [address] [place] Differential cell count method Nom (Bld) Auto Normal [facility] Comment on above: Order Comment: Speci men Type: BLOOD SPECIMENOrdering Facility: [facility] Address: [address] [place] [address] Performed By: #### 5 7021-8 ####[facility] LABORATORYCLIA [id number] [place] [address] [place] Eosinophils (Bld) [#/Vol] 0.07 10*3/uL Normal <0.46 [facility] Comment on above: Order Comment: Speci men Type: BLOOD SPECIMENOrdering Facility: [facility] Address: [address] [place] [address] Performed By: #### 5 7021-8 ####[facility] LABORATORYCLIA [id number] [place] [address] [place] Eosinophils/100 WBC (Bld) 0.8 % Normal [facility] Comment on above: Order Comment: Speci men Type: BLOOD SPECIMENOrdering Facility: [facility] Address: [address] [place] [address] Performed By: #### 5 7021-8 ####[facility] LABORATORYCLIA [id number] [place] [address] [place] Erythrocyte distribution width (RBC) [Ratio] 12.7 % Normal 11.5-15.0 [facility] Comment on above: Order Comment: Speci men Type: BLOOD SPECIMENOrdering Facility: [facility] Address: [address] [place] [address] Performed By: #### 5 7021-8 ####[facility] LABORATORYCLIA [id number] [address] [place] Hematocrit (Bld) [Volume fraction] 40.3 % Normal 36.0-46.0 [facility] Comment on above: Order Comment: Speci men Type: BLOOD SPECIMENOrdering Facility: [facility] Address: [address] [place] [address] Performed By: #### 5 7021-8 ####[facility] LABORATORYCLIA [id number] [place] [address] [place] Hemoglobin (Bld) [Mass/Vol] 13.6 g/dL Normal 11.5-15.5 [facility] Comment on above: Order Comment: Speci men Type: BLOOD SPECIMENOrdering Facility: [facility] Address: [address] [place] [address] Performed By: #### 5 7021-8 ####[facility] LABORATORYCLIA [id number] [place] [address] [place] Immature granulocytes (Bld) [#/Vol] 10*3/uL Normal <0.10 [facility] Comment on above: Order Comment: Speci men Type: BLOOD SPECIMENOrdering Facility: [facility] Address: [address] [place] [address] Performed By: #### 5 7021-8 ####[facility] LABORATORYCLIA [id number] [address] Immature granulocytes/100 WBC (Bld) 0.2 % Normal [facility] Comment on above: Order Comment: Speci men Type: BLOOD SPECIMENOrdering Facility: [facility] Address: [address] [place] [address] Performed By: #### 5 7021-8 ####[facility] LABORATORYCLIA [id number] [address] [place] Lymphocytes (Bld) [#/Vol] 1.87 10*3/uL Normal 1.00-4.00 [facility] Comment on above: Order Comment: Speci men Type: BLOOD SPECIMENOrdering Facility: [facility] Address: [address] [place] [address] Performed By: #### 5 7021-8 ####[facility] LABORATORYCLIA [id number] [address] Lymphocytes/100 WBC (Bld) 21.5 % Normal [facility] Comment on above: Order Comment: Speci men Type: BLOOD SPECIMENOrdering Facility: [facility] Address: [address] [place] [address] Performed By: #### 5 7021-8 ####[facility] LABORATORYCLIA [id number] [address] [place] MCH (RBC) [Entitic mass] 31.6 pg Normal 26.0-34.0 [facility] Comment on above: Order Comment: Speci men Type: BLOOD SPECIMENOrdering Facility: [facility] Address: [address] [place] [address] Performed By: #### 5 7021-8 ####[facility] LABORATORYCLIA [id number] [address] MCHC (RBC) [Mass/Vol] 33.7 g/dL Normal 30.5-36.0 [facility] Comment on above: Order Comment: Speci men Type: BLOOD SPECIMENOrdering Facility: [facility] Address: [address] [place] [address] Performed By: #### 5 7021-8 ####[facility] LABORATORYCLIA [id number] [place] [address] [place] MCV (RBC) [Entitic vol] 93.7 fL Normal 80.0-100.0 [facility] Comment on above: Order Comment: Speci men Type: BLOOD SPECIMENOrdering Facility: [facility] Address: [address] [place] [address] Performed By: #### 5 7021-8 ####[facility] LABORATORYCLIA [id number] [place] [address] [place] Monocytes (Bld) [#/Vol] 0.91 10*3/uL High <0.87 [facility] Comment on above: Order Comment: Speci men Type: BLOOD SPECIMENOrdering Facility: [facility] Address: [address] [place] [address] Performed By: #### 5 7021-8 ####[facility] LABORATORYCLIA [id number] [address] [place] Monocytes/100 WBC (Bld) 10.5 % Normal [facility] Comment on above: Order Comment: Speci men Type: BLOOD SPECIMENOrdering Facility: [facility] Address: [address] [place] [address] Performed By: #### 5 7021-8 ####[facility] LABORATORYCLIA [id number] [address] [place] Neutrophils (Bld) [#/Vol] 5.79 10*3/uL Normal 1.45-7.50 [facility] Comment on above: Order Comment: Speci men Type: BLOOD SPECIMENOrdering Facility: [facility] Address: [address] [place] [address] Performed By: #### 5 7021-8 ####[facility] LABORATORYCLIA [id number] [address] [place] Neutrophils/100 WBC (Bld) 66.7 % Normal [facility] Comment on above: Order Comment: Speci men Type: BLOOD SPECIMENOrdering Facility: [facility] Address: [address] [place] [address] Performed By: #### 5 7021-8 ####[facility] LABORATORYCLIA [id number] [place] [address] [place] Nucleated RBC (Bld) [#/Vol] 10*3/uL Normal <0.01 [facility] Comment on above: Order Comment: Speci men Type: BLOOD SPECIMENOrdering Facility: [facility] Address: [address] [place] [address] Performed By: #### 5 7021-8 ####D[facility] LABORATORYCLIA [id number] [place] [address] [place] Nucleated RBC/100 WBC (Bld) [Ratio] 0.0 /100 WBC Normal [facility] Comment on above: Order Comment: Speci men Type: BLOOD SPECIMENOrdering Facility: [facility] Address: [address] [place] [address] Performed By: #### 5 7021-8 ####D[facility] LABORATORYCLIA [id number] [place] [address] [place] Platelet mean volume (Bld) [Entitic vol] 9.5 fL Normal 9.0-12.7 [facility] Comment on above: Order Comment: Speci men Type: BLOOD SPECIMENOrdering Facility: [facility] Address: [address] [place] [address] Performed By: #### 5 7021-8 ####[facility] LABORATORYCLIA [id number] [place] [address] [place] Platelets (Bld) [#/Vol] 229 10*3/uL Normal 150-400 [facility] Comment on above: Order Comment: Speci men Type: BLOOD SPECIMENOrdering Facility: [facility] Address: [address] [place] [address] Performed By: #### 5 7021-8 ####[facility] LABORATORYCLIA [id number] [place] [address] [place] RBC (Bld) [#/Vol] 4.30 10*6/uL Normal 3.90-5.20 [facility] Comment on above: Order Comment: Speci men Type: BLOOD SPECIMENOrdering Facility: [facility] Address: [address] [place], [place] [address] Performed By: #### 5 7021-8 ####DIE[facility] LABORATORYCLIA [id number] [place] [id number] [place] WBC (Bld) [#/Vol] 8.69 10*3/uL Normal 3.70-11.00 [facility] Comment on above: Order Comment: Speci men Type: BLOOD SPECIMENOrdering Facility: [facility] Address: [address] [place] [id number] Performed By: #### 5 7021-8 ####DIE[facility] LABORATORYCLIA [id number] [place] [address] [place] [address] ABD/PEL W IVCONon 024 CT ABD/PEL W IVCON * * *Final Report* * * DATE OF EXAM: Aug 30 2024 12:40PM [facility] 0530 - CT ABD/PEL W IVCON / [...] acute process in the abdomen or pelvis [facility] Examiner: TOSIN Transcribe Date/Time: Aug 30 2024 1:18P Dictated by : CATY ROJAS MD This examination was interpreted and the report reviewed and electronically signed by: CATY ROJAS MD on Aug 30 2024 1:25PM EST [id number] Normal [facility] Comprehensive metabolic 2000 panelon 08-30-2024 Albumin [Mass/Vol] 4.3 g/dL Normal 3.9-4.9 [facility] Comment on above: Order Comment: Speci men Type: BLOOD SPECIMENOrdering Facility: [facility] Address: [address] [place] [address] Performed By: #### 2 4323-8 ####ORGAN LABORATORYCLIA [id number] [address] STATES OF [facility] ALP [Catalytic activity/Vol] 73 U/L Normal 34-123 [facility] Comment on above: Order Comment: Speci men Type: BLOOD SPECIMENOrdering Facility: [facility] Address: [address] [place] [address] Performed By: #### 2 4323-8 ####ORGAN LABORATORYCLIA [id number] [address] STATES OF [facility] ALT [Catalytic activity/Vol] 13 U/L Normal 7-38 [facility] Comment on above: Order Comment: Speci men Type: BLOOD SPECIMENOrdering Facility: [facility] Address: [address] [place] [address] Performed By: #### 2 4323-8 ####ORGAN LABORATORYCLIA [id number] [address] STATES [facility] Anion gap [Moles/Vol] 10 mmol/L Normal 8-15 [facility] Comment on above: Order Comment: Speci men Type: BLOOD SPECIMENOrdering Facility: [facility] Address: [facility] [place] [address] Performed By: #### 2 4323-8 ####DIE[facility] LABORATORYCLIA [id number] [place] [address] [place] AST [Catalytic activity/Vol] 19 U/L Normal 13-35 [facility] Comment on above: Order Comment: Speci men Type: BLOOD SPECIMENOrdering Facility: [facility] Address: [address] [place] [address] Performed By: #### 2 4323-8 ####DIE[facility] LABORATORYCLIA [id number] [place] [address] [place] Bilirubin [Mass/Vol] 0.8 mg/dL Normal 0.2-1.3 [facility] Comment on above: Order Comment: Speci men Type: BLOOD SPECIMENOrdering Facility: [facility] Address: [address] [place] [address] Performed By: #### 2 4323-8 ####DIE[facility] LABORATORYCLIA [id number] [place] [address] [place] Calcium [Mass/Vol] 9.4 mg/dL Normal 8.5-10.2 [facility] Comment on above: Order Comment: Speci men Type: BLOOD SPECIMENOrdering Facility: [facility] Address: [address] [place] [address] Performed By: #### 2 4323-8 ####DIE[facility] LABORATORYCLIA [id number] [place] [address] [place] Chloride [Moles/Vol] 103 mmol/L Normal 98-107 [facility] Comment on above: Order Comment: Speci men Type: BLOOD SPECIMENOrdering Facility: [facility] Address: [address] [place] [address] Performed By: #### 2 4323-8 ####DIE[facility] LABORATORYCLIA [id number] [place] [address] [place] CO2 [Moles/Vol] 26 mmol/L Normal 22-30 [facility] Comment on above: Order Comment: Speci men Type: BLOOD SPECIMENOrdering Facility: [facility] Address: [address] [place] [address] Performed By: #### 2 4323-8 ####DIE[facility] LABORATORYCLIA [id number] [place] [id number] [place] Creatinine [Mass/Vol] 1.13 mg/dL High 0.58-0.96 [facility] Comment on above: Order Comment: Jessica shearer Type: BLOOD SPECIMENOrdering Facility: [facility] Address: [address] [place] [address] Performed By: #### 2 4323-8 ####ORGAN LABORATORYCLIA [id number] [place] [id number] [facility] Creatinine and Glomerular filtration rate.predicted panel (S/P/Bld) 50 mL/min/1.73m??? Low >=60 [facility] Comment on above: Order Comment: Jessica shearer Type: BLOOD SPECIMENOrdering Facility: [facility] Address: [address] [place] [address] Result Comment: Tanja mated Glomerular Filtration Rate [...] Performed By: #### 2 4323-8 ####DIE[facility] LABORATORYCLIA [id number] [place] [id number] [place] Glucose [Mass/Vol] 113 mg/dL High 74-99 [facility] Comment on above: Order Comment: Jessica shearer Type: BLOOD SPECIMENOrdering Facility: [facility] Address: [address] [place] [address] Result Comment: The [place] Diabetes Association (ADA) provides guidance for cutoff [...] Standards of Medical Care in Diabetes 2016, [place] [employer] Association. Diabetes Care. 2016.39(Suppl 1). Performed By: #### 2 4323-8 ####DIE[facility] LABORATORYCLIA [id number] [address] Potassium [Moles/Vol] 4.4 mmol/L Normal 3.7-5.1 [facility] Comment on above: Order Comment: Speci men Type: BLOOD SPECIMENOrdering Facility: [facility] Address: [address] [place] [address] Performed By: #### 2 4323-8 ####DIE[facility] LABORATORYCLIA [id number] [address] Protein [Mass/Vol] 7.3 g/dL Normal 6.3-8.0 [facility] Comment on above: Order Comment: Speci men Type: BLOOD SPECIMENOrdering Facility: [facility] Address: [address] [place] [address] Performed By: #### 2 4323-8 ####D[facility] LABORATORYCLIA [id number] [address] Sodium [Moles/Vol] 139 mmol/L Normal 136-144 [facility] Comment on above: Order Comment: Speci men Type: BLOOD SPECIMENOrdering Facility: [facility] Address: [address] [place] [address] Performed By: #### 2 4323-8 ####DIE[facility] LABORATORYCLIA [id number] [address] [place] Urea nitrogen [Mass/Vol] 14 mg/dL Normal 7-21 [facility] Comment on above: Order Comment: Speci men Type: BLOOD SPECIMENOrdering Facility: [facility] Address: [address] [place] [address] Performed By: #### 2 4323-8 ####DIEGO LABORATORYCLIA [id number] [address] [place] ED NOTEon 08-30-2024 ED NOTE HNO ID: [id number] Author: NARESH GRAF RN Service: Nursing Author [...] with all personal belongings exiting the facility. [facility] ED PROV NOTEon 08-30-2024 ED PROV NOTE HNO ID: [id number] Author: SHAKILA RUIZ MD Service: ? Author [...] Abnormal; Notable for the following components: Abs [place] 0.91 (*) <0.87 k/uL All other components [...] Record Review (more content not included)... Normal [facility] PET/CT BRAIN PLAQUE IMAGI [facility] 04-26-2024 NM PET/CT BRAIN PLAQUE IMAGING * * *Final Report* * * DATE OF EXAM: Apr 26 2024 3:31PM [facility] - [place] PET/CT BRAIN PLAQUE IMAGING / PROCEDURE REASON: [...] purposes. There are no significant incidental findings. [facility] Examiner: PSCB Transcribe Date/Time: May 04 2024 1:10P Dictated by : JOSUÉ MCCORMACK MD This examination was interpreted and the report reviewed and electronically signed by: JOSUÉ MCCORMACK MD on May 04 2024 1:14PM EST [id number] [facility] CYNDEE VITAL ([id number]) 1945 F Date Time Provider Department 04/18/24 AMILCAR BRADFORD MD [facility] During your visit today, we recorded the following information about you: Abdon Moctezuma RT(R) 04/18/2024 11:41 AM Signed CYNDEE VITAL [id number] DOS: 04/26/24 PET INJ: 1430 PET 2: 1530 APPT NOTES: DO NOT SUBMIT AUTH TO INSURANCE, BILLED TO [employer] ANU [id number] PET BRAIN AMYVID [employer] TRANSMITTAL FORM [...] Status:Closed by ABDON MOCTEZUMA on 04/18/24 Normal [facility] MR Brain WO contraston 01-31 [facility] Absolute lymphocyte countOrd ered By: Emi Cook on 01-26-2024 Lymphocytes Auto (Unsp spec) [#/Vol] 1.56 10*3/uL 0.83-4.51 [facility] Automated lymphocyte count a s percentage of total leukocytesOrdered By: Emi Cook on 01-26-2024 Lymphocytes/100 WBC Auto (Unsp spec) 23.9 % 19-41 [facility] Basophil percentageOrdered B y: Emi Cook on 01-26-2024 Basophils/100 WBC (Bld) 0.8 % 0-1 [facility] Bilirubin [Mass/Vol] 0.50 mg/dL 0.20-1.00 [facility] Comment on above: For patients on eltr ombopag therapy, use of [facility] [place] TBIL is not recommended. Chloride [Moles/Vol] 105 mmol/L 98-107 [facility] Eosinophils/100 WBC (Bld) 2.8 % 0-5 [facility] Glucose [Mass/Vol] 99 mg/dL 74-106 [facility] Hemoglobin (Bld) [Mass/Vol] 12.8 g/dL 12.0-15.0 [facility] Monocytes/100 WBC (Bld) 11.5 % 0-10 [facility] Neutrophils (Bld) [#/Vol] 4.0 10*3/uL 2.0-7.7 [facility] Neutrophils/100 WBC (Bld) 60.7 % 47-70 [facility] Potassium [Moles/Vol] 4.2 mmol/L 3.5-5.1 [facility] Protein [Mass/Vol] 7.4 g/dL 6.4-8.2 [facility] Sodium [Moles/Vol] 140 mmol/L 136-145 [facility] WBC (Bld) [#/Vol] 6.5 10*3/uL 4.4-11.0 [facility] Culture, urineOrdered By: Do ra Cook on 01-26-2024 Bacteria identified Cx Nom (U) Culture exhibits no growth. [facility] Determination of erythrocyte mean corpuscular volume (MCV)Ordered By: Emi Cook on 01-26-2024 MCV (RBC) [Entitic vol] 94.1 fL 81-99 [facility] Erythrocyte distribution wid th ratioOrdered By: Emi Cook on 01-26-2024 Erythrocyte distribution width (RBC) [Ratio] 13.9 % 11.6-14.6 [facility] Erythrocyte distribution wid th standard deviationOrdered By: Emi Cook on 01-26-2024 Erythrocyte distribution width (RBC) [Entitic vol] 47.3 fL 35.1-43.9 [facility] Hematocrit Auto (Bld) [Volum e fraction]Ordered By: Emi Cook on 01-26-2024 Hematocrit (Bld) [Volume fraction] 39.9 % 37-47 [facility] Immature granulocytes/100 WB C Auto (Bld)Ordered By: mEi Cook on 01-26-2024 Immature granulocytes/100 WBC (Bld) 0.300 % 0.0-0.9 [facility] Comment on above: IG% - Immature Granu locytes (promyelocytes, myelocytes and metamyelocytes) > 1% indicates that a LEFT SHIFT is Present. Laboratory - Chemistry and C hemistry - challengeOrdered By: Emi Cook on 01-26-2024 Albumin/Globulin [Mass ratio] 0.9 {ratio} 0.9-2.4 [facility] ALP [Catalytic activity/Vol] 106 U/L 45-117 [facility] ALT [Catalytic activity/Vol] 24 U/L 13-56 [facility] CO2 [Moles/Vol] 29.0 mmol/L 21.0-32.0 [facility] Cobalamin (Vitamin B12) [Mass/Vol] 908 pg/mL 211-911 [facility] Globulin (S) [Mass/Vol] 3.8 g/dL 2.2-4.2 [facility] Urea nitrogen/Creatinine [Mass ratio] 13.4 mg/mg 10-20 [facility] Laboratory - Chemistry and C hemistry - challengeon 01-26-2024 Bilirubin Ql (U) Negative [facility] Glucose Ql (U) Negative [facility] Ketones Ql (U) Negative [facility] pH (U) 6.5 [pH] [facility] Specific gravity (U) [Rel density] 1.015 [facility] Urobilinogen (U) [Mass/Vol] 0.3545102 mg/dL [facility] Laboratory - Hematology and Cell countsOrdered By: Emi Cook on 01-26-2024 MCH (RBC) [Entitic mass] 30.2 pg 27.0-32.0 [facility] MCHC (RBC) [Mass/Vol] 32.1 g/dL 32-36 [facility] Nucleated RBC/100 WBC (Bld) [Ratio] 0 % 0-5 [facility] Platelet mean volume (Bld) [Entitic vol] 9.5 fL 6.2-12.0 [facility] Platelets (Bld) [#/Vol] 302 10*3/uL 150-450 [facility] Laboratory - Hematology and Cell countson 01-26-2024 Hemoglobin Ql (U) Hemolyzed [facility] Laboratory - Specimen inform ationon 01-26-2024 Clarity (U) Clear [facility] Color (U) YELLOW [facility] Laboratory - Urinalysison Nitrite Ql (U) Negative [facility] Protein Ql (U) Negative [facility] No Panel InformationOrdered By: Emi Cook on 01-26-2024 Estimated GFR (MDRD) Amer 72 mL/min >60 [facility] Comment on above: GFR Calc Estimated GFR (MDRD) Non-Af Amer 59 mL/min >60 [facility] Comment on above: Non- GFR Calc No Panel Informationon 01-25 Urine Leukocytes Negatve [facility] Urine Non-Hemolyzed Blood Trace [facility] RBC Auto (Bld) [#/Vol]Ordere d By: Emi Cook on 01-26-2024 RBC (Bld) [#/Vol] 4.24 10*6/uL 4.2-5.4 [facility] Serum or plasma calcitriol m easurement (mass/volume)Ordered By: Emi Cook on 01-26-2024 1,25-dihydroxyvitamin D3 [Mass/Vol] 64.8 pg/mL 24.8-81.5 [facility] Comment on above: Performed at: - [address] [id number] Director: Amirah eMnard MD, Phone: [phone] Serum or plasma calcium yahaira urement (mass/volume)Ordered By: Emi Cook on 01-26-2024 Calcium [Mass/Vol] 9.2 mg/dL 8.5-10.1 [facility] Serum or plasma creatinine m easurement (mass/volume)Ordered By: Emi Cook on 01-26-2024 Creatinine [Mass/Vol] 0.97 mg/dL 0.55-1.02 [facility] Comment on above: The validity of the calculated GFR & GFRAA in patients over 70 years has not been determined. Clinical correlation is essential. Serum or plasma thyroid stim ulating hormone (TSH) measurement (units/volume)Ordered By: Emi Cook on 01-26-2024 TSH Qn 2.75 uIU/mL 0.358-3.74 [facility] Serum or plasma urea nitroge n measurement (mass/volume)Ordered By: Emi Cook on 01-26-2024 Urea nitrogen [Mass/Vol] 13 mg/dL 7-18 [facility] Thin prep Papanicolaou smear with manual screeningOrdered By: Emi Cook on 01-26-2024 Thin prep Papanicolaou smear with manual screening 3.6 g/dL 3.2-5.0 [facility] Thin prep Papanicolaou smear with manual screening 19 U/L 15-37 [facility] Thin prep Papanicolaou smear with manual screening 6 5-15 [facility] ALLIED HEALTHon 01-13-2024 ALLIED HEALTH HNO ID: [id number] Author: ESPERANZA ARCINIEGA RT(R) Service: Radiology Author [...] PATIENT PRESENTS WITH AN IMPLANTABLE OR ATTACHED MATHEMATICS INSTRUCTOR: No RADIOLOGY DEPARTMENT: CT; Exam(s) Completed: Brain and Spine PERIPHERAL IV DATA: Not applicable SIGNED BY: Esperanza Arciniega RT(R) January 13, 2024 12:20 PM Normal [facility] Basic metabolic 2000 panelon 01-13-2024 Anion gap [Moles/Vol] 11 mmol/L Normal 9-18 [facility] Comment on above: Order Comment: Speci men Type: BLOOD SPECIMENOrdering Facility: [facility] Address: [address] [place] [address] Performed By: #### 2 4321-2 ####ORGAN LABORATORYCLIA [id number] [place] [address] [place] Calcium [Mass/Vol] 9.3 mg/dL Normal 8.5-10.2 [facility] Comment on above: Order Comment: Speci men Type: BLOOD SPECIMENOrdering Facility: [facility] Address: [address] [place] [address] Performed By: #### 2 4321-2 ####ORGAN LABORATORYCLIA [id number] [place] [address] [place] Chloride [Moles/Vol] 96 mmol/L Low 97-105 [facility] Comment on above: Order Comment: Speci men Type: BLOOD SPECIMENOrdering Facility: [facility] Address: [address] [place] [address] Performed By: #### 2 4321-2 ####ORGAN LABORATORYCLIA [id number] [place] [address] [place] CO2 [Moles/Vol] 27 mmol/L Normal 22-30 [facility] Comment on above: Order Comment: Speci men Type: BLOOD SPECIMENOrdering Facility: [facility] Address: [address] [place] [address] Performed By: #### 2 4321-2 ####ORGAN LABORATORYCLIA [id number] [address] STATES OF [facility] Creatinine [Mass/Vol] 0.85 mg/dL Normal 0.58-0.96 [facility] Comment on above: Order Comment: Jessica shearer Type: BLOOD SPECIMENOrdering Facility: [facility] Address: [address] [place] [address] Performed By: #### 2 4321-2 ####ORGAN LABORATORYCLIA [id number] [address] Creatinine and Glomerular filtration rate.predicted panel (S/P/Bld) 71 mL/min/1.73m??? Normal >=60 [facility] Comment on above: Order Comment: Jessica shearer Type: BLOOD SPECIMENOrdering Facility: [facility] Address: [address] [place] [address] Result Comment: Tanja mated Glomerular Filtration Rate [...] actual GFR. Performed By: #### 2 4321-2 ####ORGAN LABORATORYCLIA [id number] [address] Glucose [Mass/Vol] 108 mg/dL High 74-99 [facility] Comment on above: Order Comment: Jessica shearer Type: BLOOD SPECIMENOrdering Facility: [facility] Address: [address] [place] [address] Result Comment: The [place] [employer] (ADA) provides guidance for cutoff [...] Standards of Medical Care in Diabetes 2016, [place] [employer]. Diabetes Care. 2016.39(Suppl 1). Performed By: #### 2 4321-2 ####DIEGO LABORATORYCLIA [id number] [address] STATES OF [facility] Potassium [Moles/Vol] 3.7 mmol/L Normal 3.7-5.1 [facility] Comment on above: Order Comment: Speci men Type: BLOOD SPECIMENOrdering Facility: [facility] Address: [address] [place] [address] Performed By: #### 2 4321-2 ####DIEGO LABORATORYCLIA [id number] [address] Sodium [Moles/Vol] 134 mmol/L Low 136-144 [facility] Comment on above: Order Comment: Zoilai manfred Type: BLOOD SPECIMENOrdering Facility: [facility] Address: [address] [place] [address] Performed By: #### 2 4321-2 ####DIEGO LABORATORYCLIA [id number] [address] STATES [facility] Urea nitrogen [Mass/Vol] 19 mg/dL Normal 7-21 [facility] Comment on above: Order Comment: Jessica shearer Type: BLOOD SPECIMENOrdering Facility: [facility] Address: [address] [place] [address] Performed By: #### 2 4321-2 ####DIEGO LABORATORYCLIA [id number] [address] CBC panel Auto (Bld)on 01-12 Erythrocyte distribution width (RBC) [Ratio] 13.0 % Normal 11.5-15.0 [facility] Comment on above: Order Comment: Jessica men Type: BLOOD SPECIMENOrdering Facility: [facility] Address: [address] [place] [address] Performed By: #### 5 8410-2 ####DIEGO LABORATORYCLIA [id number] [address] Hematocrit (Bld) [Volume fraction] 38.4 % Normal 36.0-46.0 [facility] Comment on above: Order Comment: Speci men Type: BLOOD SPECIMENOrdering Facility: [facility] Address: [address] [place] [address] Performed By: #### 5 8410-2 ####DIEGO LABORATORYCLIA [id number] [address] OF [facility] Hemoglobin (Bld) [Mass/Vol] 13.6 g/dL Normal 11.5-15.5 [facility] Comment on above: Order Comment: Speci men Type: BLOOD SPECIMENOrdering Facility: [facility] Address: [address] [place] [address] Performed By: #### 5 8410-2 ####DIEGO LABORATORYCLIA [id number] [address] MCH (RBC) [Entitic mass] 31.6 pg Normal 26.0-34.0 [facility] Comment on above: Order Comment: Speci men Type: BLOOD SPECIMENOrdering Facility: [facility] Address: [address] [place] [address] Performed By: #### 5 8410-2 ####DIEGO LABORATORYCLIA [id number] [address] MCHC (RBC) [Mass/Vol] 35.4 g/dL Normal 30.5-36.0 [facility] Comment on above: Order Comment: Speci men Type: BLOOD SPECIMENOrdering Facility: [facility] Address: [address] [place] [address] Performed By: #### 5 8410-2 ####DIEGO LABORATORYCLIA [id number] [address] MCV (RBC) [Entitic vol] 89.1 fL Normal 80.0-100.0 [facility] Comment on above: Order Comment: Speci men Type: BLOOD SPECIMENOrdering Facility: [facility] Address: [address] [place] [address] Performed By: #### 5 8410-2 ####DIEGO LABORATORYCLIA [id number] [address] Nucleated RBC (Bld) [#/Vol] 10*3/uL Normal <0.01 [facility] Comment on above: Order Comment: Speci men Type: BLOOD SPECIMENOrdering Facility: [facility] Address: [address] [place] [address] Performed By: #### 5 8410-2 ####DIEGO LABORATORYCLIA [id number] [address] OF [place] Platelet mean volume (Bld) [Entitic vol] 9.2 fL Normal 9.0-12.7 [facility] Comment on above: Order Comment: Speci men Type: BLOOD SPECIMENOrdering Facility: [facility] Address: [address] [place] [address] Performed By: #### 5 8410-2 ####DIEGO LABORATORYCLIA [id number] [address] OF [place] Platelets (Bld) [#/Vol] 322 10*3/uL Normal 150-400 [facility] Comment on above: Order Comment: Speci men Type: BLOOD SPECIMENOrdering Facility: [facility] Address: [address] [place] [address] Performed By: #### 5 8410-2 ####DIEGO LABORATORYCLIA [id number] [address] RBC (Bld) [#/Vol] 4.31 10*6/uL Normal 3.90-5.20 [facility] Comment on above: Order Comment: Speci men Type: BLOOD SPECIMENOrdering Facility: [facility] Address: [address] [place] [address] Performed By: #### 5 8410-2 ####DIEGO LABORATORYCLIA [id number] [address] OF [place] WBC (Bld) [#/Vol] 13.59 10*3/uL High 3.70-11.00 [facility] Comment on above: Order Comment: Speci men Type: BLOOD SPECIMENOrdering Facility: [facility] Address: [address] [place] [address] Performed By: #### 5 8410-2 ####DIEGO LABORATORYIA [id number] [place] [address] [place] [address] BRAIN WO IVCONon 01-13-20 CT BRAIN WO IVCON * * *Final Report* * * DATE OF EXAM: Jan 13 2024 12:20PM [facility] 0504 - CT BRAIN WO IVCON / [...] C5-C6 foraminal stenosis. No significant canal stenosis. Senior Construction Project Manager (topogram) images: No significant findings. IMPRESSION: No CT evidence of acute intracranial abnormality. 5 cm LEFT parietal scalp hematoma without underlying calvarial fracture. No evidence of acute cervical spine fracture. 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 Cone Examiner: PSCB Transcribe Date/Time: Jan 13 2024 12:40P Dictated by : ADDISON GUTIERREZ DO This examination was interpreted and the report reviewed and electronically signed by: ADDISON GUTIERREZ DO on Jan 13 2024 1:08PM EST [id number] [facility] CT CERVICAL SPINE WO IVCONon 01-13-2024 CT CERVICAL SPINE WO IVCON * * *Final Report* * * DATE OF EXAM: Jan 13 2024 12:20PM [facility] 0[address] - CT CERVICAL SPINE WO IVCON [...] C5-C6 foraminal stenosis. No significant canal stenosis. Senior Construction Project Manager (topogram) images: No significant findings. IMPRESSION: No CT evidence of acute intracranial abnormality. 5 cm LEFT parietal scalp hematoma without underlying calvarial fracture. No evidence of acute cervical spine fracture. 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 Cone Examiner: TOSIN Transcribe Date/Time: Jan 13 2024 12:40P Dictated by : ADDISON GUTIERREZ DO This examination was interpreted and the report reviewed and electronically signed by: ADDISON GUTIERREZ DO on Jan 13 2024 1:08PM EST [id number] [facility] ED NOTEon 01-13-2024 ED NOTE HNO ID: [id number] Author: BETTY GAFFNEY RN Service: Nursing Author [...] off ED in no distress, with son. [facility] ED NOTE HNO ID: [id number] Author: BETTY GAFFNEY RN Service: Nursing Author Type: Registered Nurse Type: ED Notes Filed: 01/13/2024 12:26 Note Text: Pt back to Ed from CT [facility] ED NOTE HNO ID: [id number] Author: BETTY GAFFNEY RN Service: Nursing Author Type: Registered Nurse Type: ED Notes Filed: 01/13/2024 11:55 Note Text: Pt to CT with tech [facility] ED NOTE HNO ID: [id number] Author: SUJATHA MCKEE RN Service: Nursing Author Type: Registered Nurse Type: ED Notes Filed: 01/13/2024 11:20 Note Text: Patient has been taking flexeril 3x daily and has been unsteady. She fell off the toilet this morning, large hematoma on back of head. No thinners, no LOC per her daughter who witnessed the fall. [facility] ED PROV NOTEon 01-13-2024 ED PROV NOTE HNO ID: [id number] Author: SHAKILA WARE DO Service: Emergency Medicine [...] encounter MDM / Disposition / Plan Cyndee Givensnger 78-year-old female is presenting to the emergency [...] with grade 1 C6 on C7 spondylolisthesis. Cone Examiner: TOSIN Transcribe Date/Time: Jan 13 2024 12:40P [...] with grade 1 C6 on C7 spondylolisthesis. Cone Examiner: [employer]im[employer] Transcribe Date/Time: Jan 13 2024 12:40P Dictated by : ADDISON GUTIERREZ DO This examination was interpreted and the report reviewed and electronically signed by: ADDISON GUTIERREZ DO on Jan 13 2024 1:08PM EST Meds Given During Visit ED Me (more content not included)... Normal [facility] Urinalysis complete panel (U )on 01-13-2024 Bacteria LM.HPF (Urine sed) [#/Area] Few Abnormal None Seen [facility] Comment on above: Order Comment: Speci men Type: URINE SPECIMENOrdering Facility: [facility] Address: [address] [place] [address] Performed By: #### 2 4356-8 ####ORGAN LABORATORYCLIA [id number] [place] [address] [place] Bilirubin Ql (U) Negative Normal Negative [facility] Comment on above: Order Comment: Speci men Type: URINE SPECIMENOrdering Facility: [facility] Address: [address] [place] [address] Performed By: #### 2 4356-8 ####DIEGO LABORATORYCLIA [id number] [place] [address] [facility] CALCIUM OXALATE CRYSTALS (UA) Moderate Abnormal None Seen [facility] Comment on above: Order Comment: Speci men Type: URINE SPECIMENOrdering Facility: [facility] Address: [address] [place] [address] Performed By: #### 2 4356-8 ####DIEGO LABORATORYCLIA [id number] [place] [id number] [facility] Clarity (Unsp spec) Clear Normal Clear [facility] Comment on above: Order Comment: Speci men Type: URINE SPECIMENOrdering Facility: [facility] Address: [address] [place] [address] Performed By: #### 2 4356-8 ####DIEGO LABORATORYCLIA [id number] [address] OF [place] Color (U) Yellow Normal Yellow [facility] Comment on above: Order Comment: Speci men Type: URINE SPECIMENOrdering Facility: [facility] Address: [address] [place] [address] Performed By: #### 2 4356-8 ####DIEGO LABORATORYCLIA [id number] [address] Epithelial cells LM.HPF (Urine sed) [#/Area] Few Normal [facility] Comment on above: Order Comment: Speci men Type: URINE SPECIMENOrdering Facility: [facility] Address: [address] [place] [address] Performed By: #### 2 4356-8 ####DIEGO LABORATORYCLIA [id number] [place] [id number] [facility] [place] Glucose Test strip (U) [Mass/Vol] Negative Normal Negative [facility] Comment on above: Order Comment: Speci men Type: URINE SPECIMENOrdering Facility: [facility] Address: [address] [place] [id number] Performed By: #### 2 4356-8 ####DIEGO LABORATORYCLIA [id number] [place] [address] [place] Hemoglobin Ql (U) Trace Abnormal Negative [facility] Comment on above: Order Comment: Speci men Type: URINE SPECIMENOrdering Facility: [facility] Address: [address] [place] [address] Performed By: #### 2 4356-8 ####DIEGO LABORATORYCLIA [id number] [place] [address] [place] Ketones Ql (U) Negative Normal Negative [facility] Comment on above: Order Comment: Speci men Type: URINE SPECIMENOrdering Facility: [facility] Address: [address] [place] [address] Performed By: #### 2 4356-8 ####DIEGO LABORATORYCLIA [id number] [place] [address] [place] Leukocyte esterase Test strip Ql (U) Negative Normal Negative [facility] Comment on above: Order Comment: Speci men Type: URINE SPECIMENOrdering Facility: [facility] Address: [address] [place] [address] Performed By: #### 2 4356-8 ####DIEGO LABORATORYCLIA [id number] [place] [address] [place] Nitrite Ql (U) Negative Normal Negative [facility] Comment on above: Order Comment: Speci men Type: URINE SPECIMENOrdering Facility: [facility] Address: [address] [place] [address] Performed By: #### 2 4356-8 ####DIEGO LABORATORYCLIA [id number] [place] [address] [place] pH (U) 6.0 [pH] Normal 5.0-8.0 [facility] Comment on above: Order Comment: Speci men Type: URINE SPECIMENOrdering Facility: [facility] Address: [address] [place] [address] Performed By: #### 2 4356-8 ####DIEGO LABORATORYCLIA [id number] [place] [address] [place] Protein (U) [Mass/Vol] Negative Normal Negative [facility] Comment on above: Order Comment: Speci men Type: URINE SPECIMENOrdering Facility: [facility] Address: [address] [place] [address] Performed By: #### 2 4356-8 ####DIEGO LABORATORYCLIA [id number] [place] [address] [place] RBC LM.HPF (Urine sed) [#/Area] 0-3 /HPF Normal 0-3 /HPF [facility] Comment on above: Order Comment: Speci men Type: URINE SPECIMENOrdering Facility: [facility] Address: [address] [place] [address] Performed By: #### 2 4356-8 ####DIEGO LABORATORYCLIA [id number] [place] [address] [place] Specific gravity (U) [Rel density] 1.020 Normal 1.005-1.030 [facility] Comment on above: Order Comment: Speci men Type: URINE SPECIMENOrdering Facility: [facility] Address: [address] [place] [address] Performed By: #### 2 4356-8 ####DIEGO LABORATORYCLIA [id number] [address] Urobilinogen Ql (U) 0.2 EU/dL Normal 0.2-1.0 EU/dL [facility] Comment on above: Order Comment: Speci men Type: URINE SPECIMENOrdering Facility: [facility] Address: [address] [place] [address] Performed By: #### 2 4356-8 ####DIEGO LABORATORYCLIA [id number] [address] [place] WBC LM.HPF (Urine sed) [#/Area] 0-5 /HPF Normal 0-5 /HPF [facility] Comment on above: Order Comment: Speci men Type: URINE SPECIMENOrdering Facility: [facility] Address: [address] [place] [address] Performed By: #### 2 4356-8 ####DIEGO LABORATORYCLIA [id number] [address] [place] ALLIED HEALTHon 01-03-2024 ALLIED HEALTH HNO ID: [id number] Author: DENISE CHURCH RT(R) Service: Radiology Author [...] PATIENT PRESENTS WITH AN IMPLANTABLE OR ATTACHED MATHEMATICS INSTRUCTOR: No ALLERGIES: Reviewed and unchanged CONTRAST ALLERGY: [...] PERIPHERAL IV DATA: [facility] RADIOLOGY DEPARTMENT: CT; Exam(s) Completed: Brain , CTA Abdomen Pelvis, and CTA Chest SIGNATURE: RT Ranjit(R) PATIENT NAME: Cyndee Vital DATE: January 03, 2024 TIME: 4:39 AM [facility] CBC W Auto Differential pane l (Bld)on 01-03-2024 Basophils (Bld) [#/Vol] 10*3/uL Normal <0.11 [facility] Comment on above: Order Comment: Speci men Type: BLOOD SPECIMENOrdering Facility: [facility] Address: [address] [place] [address] Performed By: #### 5 7021-8 ####DIEGO LABORATORYCLIA [id number] [place] [address] [place] Basophils/100 WBC (Bld) 0.1 % Normal [facility] Comment on above: Order Comment: Speci men Type: BLOOD SPECIMENOrdering Facility: [facility] Address: [address] [place] [address] Performed By: #### 5 7021-8 ####DIEGO LABORATORYCLIA [id number] [place] [address] [place] Differential cell count method Nom (Bld) Auto Normal [facility] Comment on above: Order Comment: Speci men Type: BLOOD SPECIMENOrdering Facility: [facility] Address: [address] [place] [address] Performed By: #### 5 7021-8 ####DIEGO LABORATORYCLIA [id number] [place] [address] [place] Eosinophils (Bld) [#/Vol] 10*3/uL Normal <0.46 [facility] Comment on above: Order Comment: Speci men Type: BLOOD SPECIMENOrdering Facility: [facility] Address: [address] [place] [address] Performed By: #### 5 7021-8 ####[facility] LABORATORYCLIA [id number] [place] [address] [place] Eosinophils/100 WBC (Bld) 0.0 % Normal [facility] Comment on above: Order Comment: Speci men Type: BLOOD SPECIMENOrdering Facility: [facility] Address: [address] [place] [address] Performed By: #### 5 7021-8 ####[facility] LABORATORYCLIA [id number] [place] [address] [place] Erythrocyte distribution width (RBC) [Ratio] 13.1 % Normal 11.5-15.0 [facility] Comment on above: Order Comment: Speci men Type: BLOOD SPECIMENOrdering Facility: [facility] Address: [address] [place] [address] Performed By: #### 5 7021-8 ####[facility] LABORATORYCLIA [id number] [address] [place] Hematocrit (Bld) [Volume fraction] 44.7 % Normal 36.0-46.0 [facility] Comment on above: Order Comment: Speci men Type: BLOOD SPECIMENOrdering Facility: [facility] Address: [address] [place] [address] Performed By: #### 5 7021-8 ####[facility] LABORATORYCLIA [id number] [address] [place] Hemoglobin (Bld) [Mass/Vol] 15.3 g/dL Normal 11.5-15.5 [facility] Comment on above: Order Comment: Speci men Type: BLOOD SPECIMENOrdering Facility: [facility] Address: [address] [place] [address] Performed By: #### 5 7021-8 ####[facility] LABORATORYCLIA [id number] [place] [address] [place] Immature granulocytes (Bld) [#/Vol] 0.09 10*3/uL Normal <0.10 [facility] Comment on above: Order Comment: Speci men Type: BLOOD SPECIMENOrdering Facility: [facility] Address: [address] [place] [address] Performed By: #### 5 7021-8 ####[place] LABORATORYCLIA [id number] [address] [place] Immature granulocytes/100 WBC (Bld) 0.8 % Normal [facility] Comment on above: Order Comment: Speci men Type: BLOOD SPECIMENOrdering Facility: [facility] Address: [address] [place] [address] Performed By: #### 5 7021-8 ####[facility] LABORATORYCLIA [id number] [place] [address] [facility] [place] Lymphocytes (Bld) [#/Vol] 1.54 10*3/uL Normal 1.00-4.00 [facility] Comment on above: Order Comment: Speci men Type: BLOOD SPECIMENOrdering Facility: [facility] Address: [address] [place] [address] Performed By: #### 5 7021-8 ####[facility] LABORATORYCLIA [id number] [address] Lymphocytes/100 WBC (Bld) 13.3 % Normal [facility] Comment on above: Order Comment: Speci men Type: BLOOD SPECIMENOrdering Facility: [facility] Address: [address] [place] [address] Performed By: #### 5 7021-8 ####[facility] LABORATORYCLIA [id number] [address] MCH (RBC) [Entitic mass] 31.4 pg Normal 26.0-34.0 [facility] Comment on above: Order Comment: Speci men Type: BLOOD SPECIMENOrdering Facility: [facility] Address: [address] [place] [address] Performed By: #### 5 7021-8 ####[facility] LABORATORYCLIA [id number] [address] MCHC (RBC) [Mass/Vol] 34.2 g/dL Normal 30.5-36.0 [facility] Comment on above: Order Comment: Speci men Type: BLOOD SPECIMENOrdering Facility: [facility] Address: [address] [place] [address] Performed By: #### 5 7021-8 ####[facility] LABORATORYCLIA [id number] [address] MCV (RBC) [Entitic vol] 91.8 fL Normal 80.0-100.0 [facility] Comment on above: Order Comment: Speci men Type: BLOOD SPECIMENOrdering Facility: [facility] Address: [address] [place] [address] Performed By: #### 5 7021-8 ####[facility] LABORATORYCLIA [id number] [place] [address] [place] Monocytes (Bld) [#/Vol] 0.47 10*3/uL Normal <0.87 [facility] Comment on above: Order Comment: Speci men Type: BLOOD SPECIMENOrdering Facility: [facility] Address: [address] [place] [address] Performed By: #### 5 7021-8 ####[facility] LABORATORYCLIA [id number] [place] [address] [place] Monocytes/100 WBC (Bld) 4.1 % Normal [facility] Comment on above: Order Comment: Speci men Type: BLOOD SPECIMENOrdering Facility: [facility] Address: [address] [place] [address] Performed By: #### 5 7021-8 ####[facility] LABORATORYCLIA [id number] [place] [address] [place] Neutrophils (Bld) [#/Vol] 9.49 10*3/uL High 1.45-7.50 [facility] Comment on above: Order Comment: Speci men Type: BLOOD SPECIMENOrdering Facility: [facility] Address: [address] [place] [address] Performed By: #### 5 7021-8 ####[facility] LABORATORYCLIA [id number] [place] [address] [place] Neutrophils/100 WBC (Bld) 81.7 % Normal [facility] Comment on above: Order Comment: Speci men Type: BLOOD SPECIMENOrdering Facility: [facility] Address: [address] [place] [address] Performed By: #### 5 7021-8 ####[facility] LABORATORYCLIA [id number] [place] [address] [place] Nucleated RBC (Bld) [#/Vol] 10*3/uL Normal <0.01 [facility] Comment on above: Order Comment: Speci men Type: BLOOD SPECIMENOrdering Facility: [facility] Address: [address] [place] [address] Performed By: #### 5 7021-8 ####[facility] LABORATORYCLIA [id number] [place] [address] [place] Nucleated RBC/100 WBC (Bld) [Ratio] 0.0 /100 WBC Normal [facility] Comment on above: Order Comment: Speci men Type: BLOOD SPECIMENOrdering Facility: [facility] Address: [address] [place] [address] Performed By: #### 5 7021-8 ####[facility] LABORATORYCLIA [id number] [place] [address] [place] Platelet mean volume (Bld) [Entitic vol] 9.9 fL Normal 9.0-12.7 [facility] Comment on above: Order Comment: Speci men Type: BLOOD SPECIMENOrdering Facility: [facility] Address: [address] [place] [address] Performed By: #### 5 7021-8 ####[facility] LABORATORYCLIA [id number] [place] [address] [place] Platelets (Bld) [#/Vol] 309 10*3/uL Normal 150-400 [facility] Comment on above: Order Comment: Speci men Type: BLOOD SPECIMENOrdering Facility: [facility] Address: [address] [place] [address] Performed By: #### 5 7021-8 ####[facility] LABORATORYCLIA [id number] [place] [address] [place] RBC (Bld) [#/Vol] 4.87 10*6/uL Normal 3.90-5.20 [facility] Comment on above: Order Comment: Speci men Type: BLOOD SPECIMENOrdering Facility: [facility] Address: [address] [place] [address] Performed By: #### 5 7021-8 ####[facility] LABORATORYCLIA [id number] [place] [address] [place] WBC (Bld) [#/Vol] 11.60 10*3/uL High 3.70-11.00 [facility] Comment on above: Order Comment: Speci men Type: BLOOD SPECIMENOrdering Facility: [facility] Address: [address] [place] [address] Performed By: #### 5 7021-8 ####[place] LABORATORYCLIA [id number] [place] [address] [facility] CNDSon 01-03-2024 CNDS HNO ID: [id number] Author: ZAC HENAO MD Service: Hospital Medicine [...] Torrez MD Primary Care Provider: Emi Cook APRN.CHILD SPECIALIST My Medical Team Members: Treatment Team: Attending [...] Patient/Parents to call for appointment?: Yes Emi Cook Lilo, VICE PRESIDENT PLANNING.CHILD SPECIALIST [phone] [address] [facility] [address] [place] [phone] PCP Requested Referral Additional Provider to Provider Information: No notes on file Active Hospital Problems as of 01/03/2024 Noted - Resolved POA Hospital Back pain 01/03/2024 - Present Unknown Resolved Hospital Problems as of 01/03/2024 None Transitions of Care Critical Issues: [facility] MEDICATION CHANGES: none LABS AND PROCEDURES PENDING AT DISCHARGE: No pending results. FOLLOW-UP APPOINTMENTS ALREADY SCHEDULED WITH A [facility] PROVIDER: No future appointments. ALLERGIES No [...] (Oral) Resp 18 Ht 155 cm (5' 1.02) Wt 58.1 kg (128 lb 1.4 oz) [...] Provider, RN, Patient I have performed the bprq-um-xojq and relevant services for a total of < 30 minutes. SIGNATURE: Shameer Khubber, MD DATE: January 03, 2024 TIME: 10:20 AM Normal [facility] CRP SerPl-mCncon 01-03-2024 CRP [Mass/Vol] mg/L Normal <0.9 [facility] Comment on above: Order Comment: Speci men Type: BLOOD SPECIMENOrdering Facility: [facility] Address: [address] [place] [address] Performed By: #### 1 988-5, 2777-1, [id number], 92250-7 ####[facility] LABORATORYCLIA [id number] [place], [place] [address] [place] [address] CT BRAIN WO IVCONon 01-03-20 CT BRAIN WO IVCON * * *Final Report* * * DATE OF EXAM: Jan 03 2024 4:59AM [facility] 0504 - CT BRAIN WO IVCON / [...] base and imaged soft tissues are unremarkable. Senior Construction Project Manager (topogram) images: No additional findings. IMPRESSION: No acute intracranial abnormality identified Mild chronic intracranial changes as described [facility] Examiner: TOSIN Transcribe Date/Time: Jan 03 2024 5:23A Dictated by : CHUY DAVIS MD This examination was interpreted and the report reviewed and electronically signed by: CHUY DAVIS MD on Jan 03 2024 5:26AM EST [id number] [facility] CTA ABD/PELV W IVCONon 01-03 CTA ABD/PELV W IVCON * * *Final Report* * * DATE OF EXAM: Jan 03 2024 5:34AM [facility] 0466 - CTA ABD/PELV W IVCON / [...] Please consider direct visualization as necessary. Diverticulosis [facility] Examiner: TOSIN Transcribe Date/Time: Jan 03 2024 5:44A Dictated by : SATYA SINGH MD This examination was interpreted and the report reviewed and electronically signed by: SATYA SINGH MD on Jan 03 2024 5:52AM EST [id number] [facility] CTA CHEST (GATED) WO/W IVCON on 01-03-2024 CTA CHEST (GATED) WO/W IVCON * * *Final Report* * * DATE OF EXAM: Jan 03 2024 5:34AM [facility] 0126 - CTA CHEST (GATED) WO/W IVCON [...] Please consider direct visualization as necessary. Diverticulosis [facility] Examiner: PSCB Transcribe Date/Time: Jan 03 2024 5:44A Dictated by : SATYA SINGH MD This examination was interpreted and the report reviewed and electronically signed by: SATYA SINGH MD on Jan 03 2024 5:52AM EST [id number] Normal [facility] Comprehensive metabolic 2000 panelon 01-03-2024 Albumin [Mass/Vol] 4.5 g/dL Normal 3.9-4.9 [facility] Comment on above: Order Comment: Speci men Type: BLOOD SPECIMEN [facility] Address: [address] [place] [address] Performed By: #### 3 040-3, 89615-3, 66474-5, 56325-2, [id number] #### [facility] CLIA [id number] [address] [place] [address] [place] ALP [Catalytic activity/Vol] 127 U/L High 34-123 [facility] Comment on above: Order Comment: Speci men Type: BLOOD SPECIMEN [facility] Address: [address] [place] [address] Performed By: #### 3 040-3, 65582-5, 77687-0, 58093-5, [id number] #### [facility] CLIA [id number] [address] [place] [address] [place] ALT [Catalytic activity/Vol] 24 U/L Normal 7-38 [facility] Comment on above: Order Comment: Speci men Type: BLOOD SPECIMEN [facility] Address: [address] [place] [address] Performed By: #### 3 040-3, 98252-0, 17337-4, 42919-5, [id number] #### [facility] CLIA [id number] [address] [place] [address] [place] Anion gap [Moles/Vol] 14 mmol/L Normal 9-18 [facility] Comment on above: Order Comment: Speci men Type: BLOOD SPECIMEN [facility] Address: [address] [place] [address] Performed By: #### 3 040-3, 78787-3, 47457-1, 53441-9, [id number] #### [facility] CLIA [id number] [address] [place] [address] [place] AST [Catalytic activity/Vol] 21 U/L Normal 13-35 [facility] Comment on above: Order Comment: Speci men Type: BLOOD SPECIMEN [facility] Address: [address] [place] [address] Performed By: #### 3 040-3, 56455-0, 11522-8, 22539-8, [id number] #### [facility] CLIA [id number] [address] [place] [address] [place] Bilirubin [Mass/Vol] 0.4 mg/dL Normal 0.2-1.3 [facility] Comment on above: Order Comment: Speci men Type: BLOOD SPECIMEN [facility] Address: [address] [place] [address] Performed By: #### 3 040-3, 81344-2, 83284-5, 49221-8, [id number] #### [facility] CLIA [id number] [address] [place] [address] [place] Calcium [Mass/Vol] 9.4 mg/dL Normal 8.5-10.2 [facility] Comment on above: Order Comment: Speci men Type: BLOOD SPECIMEN [facility] Address: [address] [place] [address] Performed By: #### 3 040-3, 15770-2, 07614-1, 40276-1, [id number] #### [facility] CLIA [id number] [address] [place] [address] [place] Chloride [Moles/Vol] 102 mmol/L Normal 97-105 [facility] Comment on above: Order Comment: Speci men Type: BLOOD SPECIMEN [facility] Address: [address] [place] [address] Performed By: #### 3 040-3, 46992-0, 31220-7, 41928-7, [id number] #### [facility] CLIA [id number] [address] [place] [address] [place] CO2 [Moles/Vol] 25 mmol/L Normal 22-30 [facility] Comment on above: Order Comment: Jessica shearer Type: BLOOD SPECIMEN [facility] Address: [address] [place] [address] Performed By: #### 3 040-3, 65802-7, 49363-6, 13940-3, [id number] #### [facility] CLIA [id number] [address] [place] Creatinine [Mass/Vol] 0.81 mg/dL Normal 0.58-0.96 [facility] Comment on above: Order Comment: Zoilai manfred Type: BLOOD SPECIMEN [facility] Address: [address] [place] [address] Performed By: #### 3 040-3, 26468-5, 99608-0, 64634-8, [id number] #### [facility] CLIA [id number] [address] Creatinine and Glomerular filtration rate.predicted panel (S/P/Bld) 75 mL/min/1.73m??? Normal >=60 [facility] Comment on above: Order Comment: Jessica shearer Type: BLOOD SPECIMEN [facility] Address: [address] [place] [address] Result Comment: Tanja mated Glomerular Filtration Rate [...] actual GFR. Performed By: #### 3 040-3, 36414-4, 39414-0, 73875-8, [id number] #### [facility] CLIA [id number] [address] STATES OF [facility] Glucose [Mass/Vol] 158 mg/dL High 74-99 [facility] Comment on above: Order Comment: Jessica shearer Type: BLOOD SPECIMEN [facility] Address: [address] [place] [address] Result Comment: The [place] [employer] (ADA) provides guidance for cutoff [...] Standards of Medical Care in Diabetes 2016, [place] [employer]. Diabetes Care. 2016.39(Suppl 1). Performed By: #### 3 040-3, 82950-6, 60606-9, 46170-0, [id number] #### [facility] CLIA [id number] [address] [place] [address] [place] Potassium [Moles/Vol] 3.7 mmol/L Normal 3.7-5.1 [facility] Comment on above: Order Comment: Zoilai men Type: BLOOD SPECIMEN [facility] Address: [address] [place] [address] Performed By: #### 3 040-3, 81802-0, 47813-0, 33397-6, [id number] #### [facility] CLIA [id number] [address] [place] [address] [place] Protein [Mass/Vol] 7.9 g/dL Normal 6.3-8.0 [facility] Comment on above: Order Comment: Zoilai men Type: BLOOD SPECIMEN [facility] Address: [address] [place] [place] [address] Performed By: #### 3 040-3, 20289-1, 31614-1, 05237-9, [id number] #### [facility] CLIA [id number] [address] [place] [address] [place] Sodium [Moles/Vol] 141 mmol/L Normal 136-144 [facility] Comment on above: Order Comment: Zoilai men Type: BLOOD SPECIMEN [facility] Address: [address] [place] [address] Performed By: #### 3 040-3, 77323-1, 05715-1, 98676-7, [id number] #### [facility] CLIA [id number] [address] [place] [address] [place] [facility] Urea nitrogen [Mass/Vol] 23 mg/dL High 7-21 [facility] Comment on above: Order Comment: Speci men Type: BLOOD SPECIMEN [facility] Address: [address] [place] [address] Performed By: #### 3 040-3, 47068-7, 43989-8, 99518-5, [id number] #### [facility] CLIA [id number] [address] [place] [address] [facility] [place] ECG COMPLETEon 01-03-2024 ECG COMPLETE Ventricular Rate : 5 1 BPM Atrial Rate : 51 BPM P-R Interval : 138 ms QRS Duration : 78 ms Q-T Interval : 432 ms QTC Calculation(Bazett) : 398 ms Calculated P [place] : 49 degrees Calculated R [place] : -9 degrees Calculated T [place] : 59 degrees SINUS BRADYCARDIA NONSPECIFIC ST ABNORMALITY ABNORMAL ECG no STEMI Confirmed by MD VUONG EDWARD.S ([id number]), food expeditor CHUY INFANTE ([id number]) on 01/04/2024 7:14:53 AM NAME : CYNDEE VITAL PID : [id number] : 1945 Gender : Female Race : ORD : [id number] Procedure Date : Jan 03 2024 04:14:58 Edit Date : Jan 04 2024 07:14:56 Diagnosis: SINUS BRADYCARDIA NONSPECIFIC ST ABNORMALITY ABNORMAL ECG no STEMI Confirmed by MD VUONG EDWARD.S ([id number]), food expeditor CHUY INFANTE ([id number]) on 01/04/2024 7:14:53 AM Test Reason : Chest Pain Location : 1 : ER 0203 Overread By : MD VUONG EDWARD.S Edited By : CHUY INFANTE Referred By : , Acquired by : [place] [id number], [facility] ED PROV NOTEon 01-03-2024 ED PROV NOTE HNO ID: [id number] Author: ELIEZER VUONG MD Service: Emergency Medicine [...] test performed per [facility] [employer] policy for suspected COVID community exposure. MDM [...] the following (more content not included)... Normal [facility] FLUABV+SARS-CoV-2+RSV Pnl Re sp ROSEMARY+probeon 01-03-2024 FLUABV+SARS-CoV-2+RSV Pnl Resp ROSEMARY+probe COVID 19 RESULT: Detected The method used is RT-PCR or an equivalent NAAT method. Reference Range(the expected result in uninfected individuals): Not detected INFLUENZA A PCR: Not detected INFLUENZA B PCR: Not detected RSV PCR: Not detected Abnormal [facility] Comment on above: Performed By: #### 9 5941-1 ####[facility] LABORATORYCLIA [id number] [address] OF [place] HIGH SENSITIVITY TROPONIN T (INITIAL)on 01-03-2024 Troponin T.cardiac High sensitivity method [Mass/Vol] 6 ng/L Normal <12 [facility] Comment on above: Order Comment: Jessica shearer Type: BLOOD SPECIMENOrdering Facility: [facility] Address: [address] [place] [address] Result Comment: When assessing risk for acute [...] day MACE. Performed By: #### 3 040-3, 57251-3, 52230-3, 12551-6, [id number] ####[facility] LABORATORYCLIA [id number] [address] [place] HIGH SENSITIVITY TROPONIN T (SECOND)on 01-03-2024 Troponin T.cardiac High sensitivity method [Mass/Vol] 7 ng/L Normal <12 [facility] Comment on above: Order Comment: Jessica shearer Type: BLOOD SPECIMENOrdering Facility: [facility] Address: [address] [place] [address] Result Comment: When assessing risk for acute [...] MACE. Performed By: #### 1 988-5, 2777-1, [id number], 15610-6 ####[facility] LABORATORYCLIA [id number] [place] [address] [place] Lipase SerPl-cCncon 01-03-20 24 Lipase [Catalytic activity/Vol] 52 U/L Normal 16-61 [facility] Comment on above: Order Comment: Speci men Type: BLOOD SPECIMENOrdering Facility: [facility] Address: [address] [place] [address] Performed By: #### 3 040-3, 06056-6, 93326-1, 25439-6, [id number] ####[facility] LABORATORYCLIA [id number] [address] [place] Magnesium SerPl-mCncon 01-03 Magnesium [Mass/Vol] 2.0 mg/dL Normal 1.7-2.3 [facility] Comment on above: Order Comment: Speci men Type: BLOOD SPECIMENOrdering Facility: [facility] Address: [address] [place] [address] Performed By: #### 1 988-5, 2777-1, [id number], 20998-0 ####[facility] LABORATORYCLIA [id number] [address] STATES OF [facility] Magnesium [Mass/Vol] 2.2 mg/dL Normal 1.7-2.3 [facility] Comment on above: Order Comment: Speci men Type: BLOOD SPECIMENOrdering Facility: [facility] Address: [address] [place] [address] Performed By: #### 3 040-3, 18494-5, 72705-3, 98429-8, [id number] ####[facility] LABORATORYCLIA [id number] [place] [address] [facility] [place] NT-proBNP SerPl-mCncon 01-03 Natriuretic peptide.B prohormone N-Terminal [Mass/Vol] 407 pg/mL Normal <450 [facility] Comment on above: Order Comment: Speci men Type: BLOOD SPECIMENOrdering Facility: [facility] Address: [address] [place] [address] Performed By: #### 3 040-3, 03745-4, 86498-6, 19161-7, [id number] ####[facility] LABORATORYCLIA [id number] [place] [address] [place] PT panel Coag (PPP)on 2023 INR Coag (PPP) [Relative time] 1.0 {INR} Normal 0.9-1.3 [facility] Comment on above: Order Comment: Jessica shearer Type: BLOOD SPECIMENOrdering Facility: [facility] Address: [address] [place] [address] Result Comment: Gege min K Antagonist (VKA) Therapeutic Range: INR 2 to 3 (Target INR of 2.5) Note: For patients treated with VKA drugs, such as warfarin, the [place] [employer] 2012 Guideline recommends [...] Chest 2012, 141:7S-47S Sunshine RA, et al. [facility] 2017, 70: 252-289 Performed By: #### 3 4528-0, 58608-6 ####[facility] LABORATORYCLIA [id number] [place] [id number] [place] PT Coag (PPP) [Time] 10.8 s Normal 9.7-13.0 [facility] Comment on above: Order Comment: Jessica shearer Type: BLOOD SPECIMENOrdering Facility: [facility] Address: [address] [place] [address] Performed By: #### 3 4528-0, 79341-4 ####[facility] LABORATORYCLIA [id number] [place] [id number] [place] Phosphate SerPl-mCncon 01-03 Phosphate [Mass/Vol] 2.9 mg/dL Normal 2.7-4.8 [facility] Comment on above: Order Comment: Speci men Type: BLOOD SPECIMENOrdering Facility: [facility] Address: [address] [place] [address] Performed By: #### 1 988-5, 2777-1, [id number], 48325-5 ####[facility] [facility]ORATORYCLIA [id number] [address] Urinalysis complete panel (U )on 01-03-2024 Bilirubin Ql (U) Negative Normal Negative [facility] Comment on above: Order Comment: Speci men Type: URINE SPECIMENOrdering Facility: [facility] Address: [address] [place] [address] Performed By: #### 2 4356-8 ####[facility] LABORATORYCLIA [id number] [address] Clarity (Unsp spec) Clear Normal Clear [facility] Comment on above: Order Comment: Speci men Type: URINE SPECIMENOrdering Facility: [facility] Address: [address] [place] [address] Performed By: #### 2 4356-8 ####[place] [facility]ORATORYCLIA [id number] [address] Color (U) Yellow Normal Yellow [facility] Comment on above: Order Comment: Speci men Type: URINE SPECIMENOrdering Facility: [facility] Address: [address] [place] [address] Performed By: #### 2 4356-8 ####DIEGO LABORATORYCLIA [id number] [address] Glucose Test strip (U) [Mass/Vol] Trace Abnormal Negative [facility] Comment on above: Order Comment: Speci men Type: URINE SPECIMENOrdering Facility: [facility] Address: [address] [place] [address] Performed By: #### 2 4356-8 ####DIEGO LABORATORYCLIA [id number] [address] Hemoglobin Ql (U) Trace Abnormal Negative [facility] Comment on above: Order Comment: Speci men Type: URINE SPECIMENOrdering Facility: [facility] Address: [address] [place] [address] Performed By: #### 2 4356-8 ####DIEGO LABORATORYCLIA [id number] [address] [place] Ketones Ql (U) Negative Normal Negative [facility] Comment on above: Order Comment: Speci men Type: URINE SPECIMENOrdering Facility: [facility] Address: [address] [place] [address] Performed By: #### 2 4356-8 ####DIEGO LABORATORYCLIA [id number] [address] [place] Leukocyte esterase Test strip Ql (U) Negative Normal Negative [facility] Comment on above: Order Comment: Speci men Type: URINE SPECIMENOrdering Facility: [facility] Address: [address] [place] [address] Performed By: #### 2 4356-8 ####DIEGO LABORATORYCLIA [id number] [place] [address] [place] Nitrite Ql (U) Negative Normal Negative [facility] Comment on above: Order Comment: Speci men Type: URINE SPECIMENOrdering Facility: [facility] Address: [address] [place] [address] Performed By: #### 2 4356-8 ####DIEGO LABORATORYCLIA [id number] [place] [address] [place] pH (U) 7.0 [pH] Normal 5.0-8.0 [facility] Comment on above: Order Comment: Speci men Type: URINE SPECIMENOrdering Facility: [facility] Address: [address] [place] [address] Performed By: #### 2 4356-8 ####DIEGO LABORATORYCLIA [id number] [place] [address] [place] Protein (U) [Mass/Vol] Negative Normal Negative [facility] Comment on above: Order Comment: Speci men Type: URINE SPECIMENOrdering Facility: [facility] Address: [address] [place] [address] Performed By: #### 2 4356-8 ####DIEGO LABORATORYCLIA [id number] [address] [place] RBC LM.HPF (Urine sed) [#/Area] 0-3 /HPF Normal 0-3 /HPF [facility] Comment on above: Order Comment: Speci men Type: URINE SPECIMENOrdering Facility: [facility] Address: [address] [place] [address] Performed By: #### 2 4356-8 ####DIEGO LABORATORYCLIA [id number] [address] Specific gravity (U) [Rel density] 1.010 Normal 1.005-1.030 [facility] Comment on above: Order Comment: Speci men Type: URINE SPECIMENOrdering Facility: [facility] Address: [address] [place] [address] Performed By: #### 2 4356-8 ####DIEGO LABORATORYCLIA [id number] [address] Urobilinogen Ql (U) 0.2 EU/dL Normal 0.2-1.0 EU/dL [facility] Comment on above: Order Comment: Speci men Type: URINE SPECIMENOrdering Facility: [facility] Address: [address] [place] [address] Performed By: #### 2 4356-8 ####DIEGO LABORATORYCLIA [id number] [address] [place] WBC LM.HPF (Urine sed) [#/Area] 0-5 /HPF Normal 0-5 /HPF [facility] Comment on above: Order Comment: Speci men Type: URINE SPECIMENOrdering Facility: [facility] Address: [address] [place] [address] Performed By: #### 2 4356-8 ####DIEGO LABORATORYCLIA [id number] [address] [place] aPTT PPPon 01-03-2024 aPTT Coag (PPP) [Time] 21.9 s Low 23.0-32.4 [facility] Comment on above: Order Comment: Speci men Type: BLOOD SPECIMENOrdering Facility: [facility] Address: [address] [place] [address] Performed By: #### 3 4528-0, 17984-5 ####ORGAN LABORATORYCLIA [id number] [place] [address] [place] NM PET/CT BRAIN PLAQUE IMAGI NGon 09-24-2023 [facility] Patient Instructionson 04-13 Side Seam Envelope Machine Operator Authentication Interface Message Text Sunscreen Recommendations: [...] Pure and Simple Zinc oxide Normal [facility] Progress Noteson 04-13-2023 Side Seam Envelope Machine Operator Authentication Interface Message Text Vitals not obtained per provider's instructions. Patient was identified by name and date of . Alvaro Collazo Why are you seeing the assistant professor of german (doctor) today? mole What specific location on [...] Use? yes Tobacco Use? no Normal [facility] Side Seam Envelope Machine Operator Authentication Interface Message Text ------- HISTORY OF [...] by me, Celina Levy MD. Normal [facility] NM PET/CT BRAIN PLAQUE IMAGI NGon 02-19-2023 [facility] Absolute lymphocyte countOrd ered By: Emi Cook on 01-26-2023 Lymphocytes Auto (Unsp spec) [#/Vol] 1.61 10*3/uL 0.83-4.51 [facility] Basophil percentageOrdered B y: Emi Cook on 01-26-2023 Basophils/100 WBC (Bld) 0.6 % 0-1 [facility] Bilirubin [Mass/Vol] 0.50 mg/dL 0.20-1.00 [facility] Comment on above: For patients on eltr ombopag therapy, use of Dimension [place] TBIL is not recommended. Chloride [Moles/Vol] 112 mmol/L 98-107 [facility] Cholesterol [Mass/Vol] 144 mg/dL <200 [facility] Comment on above: <200 mg/dL Desirable 200-240 mg/dL Borderline >240 mg/dL High Risk Eosinophils/100 WBC (Bld) 3.0 % 0-5 [facility] Glucose [Mass/Vol] 107 mg/dL 74-106 [facility] Comment on above: Fasting Glucose resu lt from 100 to 125 mg/dL suggests IMPAIRED HOMEOSTASIS per A.D.A. criteria. Neutrophils (Bld) [#/Vol] 4.5 10*3/uL 2.0-7.7 [facility] Neutrophils/100 WBC (Bld) 63.8 % 47-70 [facility] Potassium [Moles/Vol] 3.6 mmol/L 3.5-5.1 [facility] Protein [Mass/Vol] 7.3 g/dL 6.4-8.2 [facility] Sodium [Moles/Vol] 145 mmol/L 136-145 [facility] Triglyceride [Mass/Vol] 221 mg/dL <199 [facility] Comment on above: The drugs N-Acetylcy steine and Metamizole may falsely depress this assay.Serum Triglycerides Reference Interval Normal <150 mg/dL Borderline high 150 - 199 mg/dL High 200 - 499 mg/dL Very High > or = 500 mg/dL WBC (Bld) [#/Vol] 7.0 10*3/uL 4.4-11.0 [facility] Blood erythrocytes count (nu mber/volume)Ordered By: Emi Cook on 01-26-2023 RBC (Bld) [#/Vol] 4.36 10*6/uL 4.2-5.4 [facility] Blood hemoglobin measurement (mass/volume)Ordered By: Emi Cook on 01-26-2023 Hemoglobin (Bld) [Mass/Vol] 13.4 g/dL 12.0-15.0 [facility] Blood lymphocytes/100 leukoc ytesOrdered By: Emi Cook on 01-26-2023 Lymphocytes/100 WBC (Bld) 23.0 % 19-41 [facility] Blood monocytes/100 leukocyt esOrdered By: Emi Cook on 01-26-2023 Monocytes/100 WBC (Bld) 9.3 % 0-10 [facility] Blood platelet mean volumeOr dered By: Emi Cook on 01-26-2023 Platelet mean volume (Bld) [Entitic vol] 10.8 fL 6.2-12.0 [facility] Determination of erythrocyte mean corpuscular volume (MCV)Ordered By: Emi Cook on 01-26-2023 MCV (RBC) [Entitic vol] 93.6 fL 81-99 [facility] Hematocrit Auto (Bld) [Volum e fraction]Ordered By: Emi Cook on 01-26-2023 Hematocrit (Bld) [Volume fraction] 40.8 % 37-47 [facility] Laboratory - Chemistry and C hemistry - challengeOrdered By: Emi Cook on 01-26-2023 ALP [Catalytic activity/Vol] 102 U/L 45-117 [facility] ALT [Catalytic activity/Vol] 23 U/L 13-56 [facility] CO2 [Moles/Vol] 27.0 mmol/L 21.0-32.0 [facility] Globulin (S) [Mass/Vol] 3.6 g/dL 2.2-4.2 [facility] Urea nitrogen/Creatinine [Mass ratio] 22.0 mg/mg 10-20 [facility] Laboratory - Hematology and Cell countsOrdered By: Emi Cook on 01-26-2023 Erythrocyte distribution width (RBC) [Entitic vol] 46.9 fL 35.1-43.9 [facility] Erythrocyte distribution width (RBC) [Ratio] 13.7 % 11.6-14.6 [facility] Immature granulocytes/100 WBC (Bld) 0.300 % 0.0-0.9 [facility] Comment on above: IG% - Immature Granu locytes (promyelocytes, myelocytes and metamyelocytes) > 1% indicates that a LEFT SHIFT is Present. MCH (RBC) [Entitic mass] 30.7 pg 27.0-32.0 [facility] Nucleated RBC/100 WBC (Bld) [Ratio] 0 % 0-5 [facility] MCHC Auto (RBC) [Mass/Vol]Or dered By: Emi Cook on 01-26-2023 MCHC (RBC) [Mass/Vol] 32.8 g/dL 32-36 [facility] No Panel InformationOrdered By: Emi Cook on 01-26-2023 Vitamin D 25-Hydroxy 12.5 ng/mL [facility] Comment on above: Vitamin D 25(OH) Sta tus Range Deficiency <20 ng/mL (50nmol/L) Insufficiency 20 - 30 ng/mL (50 - 75 nmol/L) Sufficiency 30 - 100 ng/mL (75 - 250 nmol/L) Toxicity >100 ng/mL (>250 nmol/L) Estimated GFR (MDRD) Amer 77 mL/min >60 [facility] Comment on above: GFR Calc Estimated GFR (MDRD) Non-Af Amer 64 mL/min >60 [facility] Comment on above: Non- GFR Calc Platelets bldOrdered By: Ventura Cook on 01-26-2023 Platelets (Bld) [#/Vol] 238 10*3/uL 150-450 [facility] Serum or plasma albumin yahaira urement (mass/volume)Ordered By: Emi Cook on 01-26-2023 Albumin [Mass/Vol] 3.7 g/dL 3.2-5.0 [facility] Serum or plasma albumin/glob ulin mass ratioOrdered By: Emi Cook on 01-26-2023 Albumin/Globulin [Mass ratio] 1.0 {ratio} 0.9-2.4 [facility] Serum or plasma calcium yahaira urement (mass/volume)Ordered By: Emi Cook on 01-26-2023 Calcium [Mass/Vol] 9.3 mg/dL 8.5-10.1 [facility] Serum or plasma cholesterol in HDL measurement (mass/volume)Ordered By: Emi Cook on 01-26-2023 Cholesterol in HDL [Mass/Vol] 68 mg/dL >40 [facility] Comment on above: The drugs N-Acetylcy steine and Metamizole may falsely depress this assay. Reference Range HDL <40 mg/dL Low HDL Cholesterol HDL >or= 60 mg/dL High HDL Cholesterol Serum or plasma cholesterol in VLDL measurement (mass/volume)Ordered By: Emi Cook on 01-26-2023 Cholesterol in VLDL [Mass/Vol] 44 mg/dL 5-40 [facility] Serum or plasma creatinine m easurement (mass/volume)Ordered By: Emi Cook on 01-26-2023 Creatinine [Mass/Vol] 0.91 mg/dL 0.55-1.02 [facility] Comment on above: The validity of the calculated GFR & GFRAA in patients over 70 years has not been determined. Clinical correlation is essential. Serum or plasma low density lipoprotein (LDL) cholesterol measurement (mass/volume)Ordered By: Emi Cook on 01-26-2023 Cholesterol in LDL [Mass/Vol] 32 mg/dL 0-130 [facility] Serum or plasma urea nitroge n measurement (mass/volume)Ordered By: Emi Cook on 01-26-2023 Urea nitrogen [Mass/Vol] 20 mg/dL 7-18 [facility] Thin prep Papanicolaou smear with manual screeningOrdered By: Emi Cook on 01-26-2023 Thin prep Papanicolaou smear with manual screening 17 U/L 15-37 [facility] Thin prep Papanicolaou smear with manual screening 6 5-15 [facility] MRI Brain w/o Contraston MRI Brain w/o Contrast Patient Name: CYNDEE VITAL [facility] ACCESSION EXAM DATE/TIME PROCEDURE ORDERING PROVIDER [id number] 11/11/2021 12:17 EST MRI Brain w/o Contrast MD JONATHAN, GUNJAN CPT code 79639 Reason For Exam (MRI Brain w/o Contrast) [...] #### [facility] [address] [place] [address] Vitamin B12on 10-14-2021 Cobalamin (Vitamin B12) [Mass/Vol] 256 pg/mL Normal 239-931 [facility] Comment on above: Performed By: #### T SH5, B12 #### [facility] [address] [place] [address] MA MAMMOGRAM SCREENING BILAT ERAL W/TOMOon 08-19-2021 MA MAMMOGRAM SCREENING BILATERAL W/DOMINIC ORIGINAL FROM: [facility] [address] [place], [place] [address] PROCEDURE FOR: CYNDEE AguirreHubert AURECHELITA [address] [place] [address] Home: PID#: [id number] Exam#: [id number] : 1945 Age: 76 TO: EMI COOK APRN [facility] [address] [place], [place] [address] EXAMINATION: SCREENING DIGITAL BILATERAL MAMMOGRAM WITH TOMOSYNTHESIS, [...] 08/20/2021 9:23:16 AM Ordering Provider: EMI COOK [employer] Consultant: HAM RODRIGUEZ RT (R) (M) (CT) letter sent: Normal BI-RADS 1 and 2 Mammogram BI-RADS: 1 Negative Normal [facility] ([place]) Vital Signs Date Time Vital Sign Value Performing Clinician Mirna trinh 02-23-2025 08:57-0400 Body mass index (BMI) [Ratio] 24.46 kg/m2 Gunjan Castillo MD Work Phone: [facility] [employer] 02-23-2025 08:57-0400 Body weight 58.24 kg Gunjan Castillo MD Work Phone: [employer] 02-23-2025 08:57-0400 Diastolic blood pressure 76 mm[Hg] Gunjan Castillo MD Work Phone: [employer] 02-23-2025 08:57-0400 Heart rate 78 /min Gunjan Castillo MD Work Phone: [employer] 02-23-2025 08:57-0400 Systolic blood pressure 121 mm[Hg] Gunjan Castillo MD Work Phone: [employer] 08-25-2024 08:44-0400 Body mass index (BMI) [Ratio] 26.18 kg/m2 Gunjan Castillo MD Work Phone: [employer] 08-25-2024 08:44-0400 Body weight 62.32 kg Gunjan Castillo MD Work Phone: [employer] 08-25-2024 08:44-0400 Diastolic blood pressure 74 mm[Hg] Gunjan Castillo MD Work Phone: [employer] 08-25-2024 08:44-0400 Heart rate 72 /min Gunjan Castillo MD Work Phone: [employer] 08-25-2024 08:44-0400 Systolic blood pressure 119 mm[Hg] Gunjan Castillo MD Work Phone: [employer] 02-25-2024 08:53-0400 Body mass index (BMI) [Ratio] 24.38 kg/m2 Gunjan Castillo MD Work Phone: [facility] 02-25-2024 08:53-0400 Body weight 58.06 kg Gunjan Castillo MD Work Phone: [facility] 02-25-2024 08:53-0400 Diastolic blood pressure 60 mm[Hg] Gunjan Castillo MD Work Phone: [facility] 02-25-2024 08:53-0400 Heart rate 69 /min Gunjan Castillo MD Work Phone: [facility] 02-25-2024 08:53-0400 Systolic blood pressure 94 mm[Hg] Gunjan Castillo MD Work Phone: [facility] 01-26-2024 17:41-0400 Body height 154.94 cm [facility] 01-26-2024 17:41-0400 Body mass index (BMI) [Ratio] 24 kg/m2 [facility] 01-26-2024 17:41-0400 Body temperature 96.3 [degF] [facility] 01-26-2024 17:41-0400 Body weight 57.6 kg [facility] 01-26-2024 17:41-0400 Diastolic blood pressure 80 mm[Hg] [facility] 01-26-2024 17:41-0400 Heart rate 84 /min [facility] 01-26-2024 17:41-0400 Respiratory rate 18 /min [facility] 01-26-2024 17:41-0400 SaO2% (BldA) [Mass fraction] 97 % [facility] 01-26-2024 17:41-0400 Systolic blood pressure 120 mm[Hg] [facility] 12-07-2023 17:43-0500 Body mass index (BMI) [Ratio] 25.1 kg/m2 [facility] 12-07-2023 17:43-0500 Body temperature 96.8 [degF] [facility] 12-07-2023 17:43-0500 Body weight 60.32 kg [facility] 12-07-2023 17:43-0500 Diastolic blood pressure 60 mm[Hg] [facility] 12-07-2023 17:43-0500 Heart rate 64 /min [facility] 12-07-2023 17:43-0500 Respiratory rate 18 /min [facility] 12-07-2023 17:43-0500 SaO2% (BldA) [Mass fraction] 95 % [facility] 12-07-2023 17:43-0500 Systolic blood pressure 98 mm[Hg] [facility] 10-22-2023 14:58-0500 Body mass index (BMI) [Ratio] 24.42 kg/m2 Gunjan Castillo MD Work Phone: [facility] 10-22-2023 14:58-0500 Body weight 58.15 kg Gunjan Castillo MD Work Phone: [facility] 10-22-2023 14:58-0500 Diastolic blood pressure 69 mm[Hg] Gunjan Castillo MD Work Phone: [facility] 10-22-2023 14:58-0500 Heart rate 56 /min Gunjan Castillo MD Work Phone: [facility] 10-22-2023 14:58-0500 Systolic blood pressure 112 mm[Hg] Gunjan Castillo MD Work Phone: [facility] 02-26-2023 15:46-0400 Body mass index (BMI) [Ratio] 21.87 kg/m2 Gunjan Castillo MD Work Phone: [facility] 02-26-2023 15:46-0400 Body temperature 96.6 [degF] Gunjan Castillo MD Work Phone: [facility] 02-26-2023 15:46-0400 Body weight 52.07 kg Gunjan Castillo MD Work Phone: [facility] 02-26-2023 15:46-0400 Diastolic blood pressure 72 mm[Hg] Gunjan Castillo MD Work Phone: [facility] 02-26-2023 15:46-0400 Heart rate 58 /min Gunjan Castillo MD Work Phone: [facility] 02-26-2023 15:46-0400 Systolic blood pressure 112 mm[Hg] Gunjan Castillo MD Work Phone: [facility] 01-26-2023 16:19-0400 Body height 154.94 cm [facility] 01-26-2023 16:19-0400 Body mass index (BMI) [Ratio] 22.8 kg/m2 [facility] 01-26-2023 16:19-0400 Body temperature 97.2 [degF] [facility] 01-26-2023 16:19-0400 Body weight 54.88 kg [facility] 01-26-2023 16:19-0400 Diastolic blood pressure 80 mm[Hg] [facility] 01-26-2023 16:19-0400 Heart rate 87 /min [facility] 01-26-2023 16:19-0400 Respiratory rate 18 /min [facility] 01-26-2023 16:19-0400 SaO2% (BldA) [Mass fraction] 97 % [facility] 01-26-2023 16:19-0400 Systolic blood pressure 120 mm[Hg] [facility] 02-28-2022 15:28-0400 Body height 154.9 cm Marcus Sorensen DO Work Phone: [facility] 02-28-2022 15:28-0400 Body weight 49.9 kg Marcus Sorensen DO Work Phone: [facility] 02-28-2022 15:28-0400 Diastolic blood pressure 58 mm[Hg] Marcus Sorensen DO Work Phone: [facility] 02-28-2022 15:28-0400 Heart rate 58 /min Marcus Sorensen DO Work Phone: [facility] 02-28-2022 15:28-0400 SaO2% (BldA) [Mass fraction] 98 % Marcus Sorensen DO Work Phone: [facility] 02-28-2022 15:28-0400 Systolic blood pressure 112 mm[Hg] Marcus Sorensen DO Work Phone: [facility] Encounters Encounter Date Encounter Type Care Provider Facility Start: 09-08-2025 ambulatory Emi Gonzalezson POWERHOUSE ELECTRICIAN APPRENTICE Faci lity:[facility] Start: 08-31-2025 ambulatory Emi Cook POWERHOUSE ELECTRICIAN APPRENTICE Faci lity:[facility] Start: 08-29-2025 End: 08-29-2025 Telephone encounter Gunjan Castillo MD Work Phone: [facility] Comment on above: Cancelled Appointmen t (08/31/25) Start: 08-23-2025 Encounter for genera l adult medical examination without abnormal findings Josué BERG [facility] Start: 08-19-2025 ambulatory Emi Cook POWERHOUSE ELECTRICIAN APPRENTICE Faci lity:[facility] Start: 08-08-2025 End: 08-08-2025 ambulatory Josué Last OLS Facility:[facility] Start: 07-18-2025 ambulatory Josué Last OLS Facil ity:[facility] Start: 06-01-2025 ambulatory Josué Last OLS Facil ity:[facility] Start: 05-30-2025 ambulatory Josué Last OLS Facil ity:[facility] Start: 03-14-2025 ambulatory EMI Nagy COOK Facil ity:[facility] Start: 03-14-2025 End: 03-14-2025 Subsequent hospital visit by physician Fredi Lauren Work Phone: Radiology Comment on above: Arrived Start: 03-10-2025 End: 03-10-2025 ambulatory Josué Last OLS Facility:[facility] Start: 02-23-2025 End: 03-10-2025 Telephone encounter [facility] Start: 02-23-2025 End: 02-23-2025 Subsequent hospital visit by physician Gunjan Castillo MD Work Phone: [facility] Comment on above: Irregular heart rate Start: 02-23-2025 End: 02-23-2025 ambulatory GUNJAN CASTILLO [facility] Start: 02-23-2025 End: 02-23-2025 Office outpatient visit 40 minutes Gunjan Castillo MD Work Phone: [facility] [place] Comment on above: 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) (Primary Dx); Irregular heart rate; Primary hypertension Start: 02-23-2025 End: 02-23-2025 ambulatory GUNJAN CASTILLO [facility] Start: 02-14-2025 End: 02-14-2025 ambulatory EMI COOK Facility:[facility] Start: 02-14-2025 End: 02-14-2025 Subsequent hospital visit by physician [facility] Work Phone: Radiology Start: 01-24-2025 End: 01-24-2025 Refill Dorothy Kumar MA [facility] [place] Start: 11-19-2024 End: 11-19-2024 Letter encounter Celina Levy MD Work Phone: [facility] Start: 09-29-2024 End: 09-29-2024 ambulatory AMILCAR BRADFORD Facility:[facility] Start: 09-29-2024 End: 09-29-2024 Patient encounter procedure Emi Cook VICE PRESIDENT PLANNING.CHILD SPECIALIST Work Phone: [facility] Start: 09-29-2024 End: 09-29-2024 Subsequent hospital visit by physician [facility] Comment on above: Examination of parti cipant or control in clinical research [Z00.6] Start: 09-29-2024 End: 09-29-2024 ambulatory AMILCAR BRADFORD Facility:[facility] Start: 09-29-2024 Patient encounter procedure AMILCAR BRADFORD [facility] Start: 09-21-2024 End: 09-21-2024 ambulatory Emi Cook POWERHOUSE ELECTRICIAN APPRENTICE Facility:[facility] Start: 09-19-2024 End: 09-19-2024 Telephone encounter Amilcar Bradford MD, PhD Work Phone: Molecular Imaging Comment on above: Returning Patient's Call Start: 09-14-2024 End: 09-15-2024 Orders Only Amilcar Bradford MD, PhD Work Phone: [facility] Imaging Comment on above: Examination of parti cipant or control in clinical research (Primary Dx) Start: 09-14-2024 End: 09-15-2024 Patient encounter procedure Amilcar Bradford MD, PhD Work Phone: [facility] Start: 08-30-2024 End: 08-30-2024 Emergency department patient visit EMICarla COOK Facility:[facility] Start: 08-25-2024 End: 08-25-2024 Office outpatient visit 25 minutes [facility] MD [facility] Comment on above: Alzheimer's dementia with behavioral disturbance (HCC) (Primary Dx) Start: 08-14-2024 End: 08-14-2024 Letter encounter Celina Levy MD Work Phone: [facility] Start: 07-22-2024 End: 07-22-2024 Refill [facility]jan Castillo MD [facility] Comment on above: Depression, unspecif ied depression type Start: 05-10-2024 End: 05-10-2024 ambulatory EMI L COOK Facility:[facility] Start: 04-26-2024 End: 04-26-2024 ambulatory AMILCAR BRADFORD Facility:[facility] Start: 04-26-2024 End: 04-26-2024 ambulatory AMILCAR BRADFORD Facility:[facility] Start: 04-26-2024 End: 04-26-2024 Patient encounter procedure Emi Cook VICE PRESIDENT PLANNING.CHILD SPECIALIST Work Phone: [facility] Start: 04-26-2024 End: 04-26-2024 Subsequent hospital visit [...] St arun Bradford MD, PhD Work Phone: [facility] Start: 04-14-2024 Orders Only Amilcar naqvi MD, PhD Work Phone: Neurology Comment on above: Examination of parti cipant or control in clinical research (Primary Dx) Start: 04-14-[address] arun Bradford MD, PhD Work Phone: [facility] Start: 04-13-2024 Orders Only Amilcar naqvi MD, PhD Work Phone: Radiology Comment on above: Examination of parti cipant in clinical trial (Primary Dx) Start: 04-13-[address] arun Bradford MD, PhD Work Phone: [facility] Start: 02-25-2024 End: 02-25-2024 Office outpatient visit 40 minutes Gunjan Castillo MD Work Phone: [facility] Ger[facility] Comment on above: Alzheimer's dementia with behavioral disturbance (HCC) (Primary Dx) Start: 02-01-2024 End: 02-01-2024 Patient encounter [facility] Work Phone: [facility] Start: 02-01-2024 End: 02-01-2024 Subsequent hospital visit by physician [facility] Work Phone: Radiology Comment on above: Examination for norm al comparison or control in clinical research [Z00.6] Start: 01-26-2024 End: 01-26-2024 ambulatory [facility] Work Phone: Start: 01-26-2024 End: 01-26-2024 Patient encounter procedure Wolfgang [facility] Comment on above: Examination for norm al comparison or control in clinical research (Primary Dx) Start: 01-25-2024 ambulatory Roxann Collins RN [facility] Start: 01-25-2024 Patient encounter procedure Roxann Collins RN [facility] Start: 01-25-2024 Telephone encounter Gunjan ferraro MD Work Phone: [facility] Start: 01-13-2024 End: 01-13-2024 Emergency department patient visit SHAKILA WARE Facility:[facility] Start: 01-03-2024 End: 01-03-2024 Evaluation and management of inpatient EMI COOK Facility:[facility] Start: 12-28-2023 Refill Monica Ahn [facility] Start: 10-22-2023 End: 10-22-2023 Office outpatient visit 40 minutes Gunjan Castillo MD Work Phone: [facility] Comment on above: Alzheimer's dementia [...] 07-03-2023 Refill Gunjan goetz MD Work Phone: [facility] Comment on above: Depression, unspecif ied depression type Start: 04-13-2023 End: 04-13-2023 ambulatory UNKNOWN PROVIDER Facility:[facility] Start: 04-13-2023 End: 04-13-2023 Office outpatient new 20 minutes Celina Levy MD Work Phone: [facility] Comment on above: Seborrheic keratoses (Primary Dx); Ephelides; Lentigines; Multiple nevi Start: 02-26-2023 End: 02-26-2023 Office outpatient visit 40 minutes Gunjan Castillo MD Work Phone: [facility] Comment on above: Alzheimer's dementia without behavioral disturbance (HCC) (Primary Dx); Depression, unspecified depression type Start: 02-19-2023 Telephone encounter Amilcar Bradford MD, PhD Work Phone: Molecular Imaging Comment on above: NM RESEARCH Cancelled Appointmen t (Cancel and reschedule ) Start: 02-19-2023 End: 02-19-2023 Patient encounter procedure Emi Cook APRN.CHILD SPECIALIST Work Phone: Molecular Imaging Start: 02-19-2023 End: 02-19-2023 Subsequent hospital visit by physician [facility] Comment on above: Examination for norm al comparison or control in clinical research [Z00.6] Start: 01-26-2023 End: 01-26-2023 ambulatory [facility] Work Phone: Start: 01-26-2023 End: 01-26-2023 Patient encounter procedure [facility], Specimen Start: 01-21-2023 Patient encounter procedure Wolfgang Molina eard Neu[facility] Comment on above: Examination for norm al comparison or control in clinical research (Primary Dx) Start: 08-22-2022 ambulatory Yoselyn Frey [facility] Start: 08-22-2022 End: 08-22-2022 Subsequent hospital visit by physician Yoselyn Paez VICE PRESIDENT PLANNING - CHILD SPECIALIST Work Phone: [facility] Start: 02-28-2022 End: 02-28-2022 Patient encounter procedure Marcus Christian Sorensen DO Work Phone: Cardiology Comment on above: PSVT (paroxysmal sup raventricular tachycardia) (HCC) (Primary Dx); PVC (premature ventricular contraction); Pure hypercholesterolemia Start: 02-17-2022 ambulatory UNKNOWN PROVIDER [facility] Start: 11-18-2021 ambulatory UNKNOWN PROVIDER [facility] Start: 10-28-2021 ambulatory UNKNOWN PROVIDER [facility] Start: 10-14-2021 ambulatory UNKNOWN PROVIDER [facility] Start: 08-19-2021 End: 08-19-2021 Patient encounter procedure EMI COOK VICE PRESIDENT PLANNING-CHILD SPECIALIST [facility] Procedures Date Procedure Procedure Detail Performing Clinician [...] DO Work Phone: H/O: hysterectomy EMI MASON BACAON VICE PRESIDENT PLANNING-CHILD SPECIALIST Plan of Treatment Date Care Activity Detail Author Start: 08-30-2027 [facility] Start: 01-12-2027 [facility] Start: 08-31-2025 End: 08-31-2025 Patient encounter procedure 08/31/2025 9:00 AM EDT Office Visit [facility] [address] [place] [address] Gunjan Castillo MD [address] [place] [id number] [facility] Start: 08-25-2025 [facility] Start: 07-10-2025 COVID-19 Vaccine ( season) COVID-19 Vaccine ( season) [facility] Start: 07-10-2025 Influenza vaccination [facility] Start: 04-11-2025 End: 04-11-2025 Patient encounter procedure 04/11/2025 9:30 AM EDT Appointment Radiology [address] [address] [address]/ [place] [id number] professional [id number] MR Radiology Comment on above: [address]/ [place] [id number] professional [id number] MR Start: 02-23-2025 Depression [facility] Start: 02-23-2025 End: 02-23-2025 Patient encounter procedure 02/23/2025 9:00 AM EDT [facility] [address] [place] [phone] Gunjan Castillo MD [address] [address] [facility] Start: 11-09-2024 Advance Directive Discussion Advance Directive Discussion [facility] Start: 11-09-2024 Medicare Formerly [facility] Annual Wellness Visit Medicare Advantage Annual Wellness Visit [facility] Start: 10-07-2024 LIPID SCREEN LIPID SCREEN [facility] Start: 09-29-2024 End: 09-29-2024 Patient encounter procedure Molecular Imaging Comment on above: NM PET/CT BRAIN PLAQ [facility] Start: 09-29-2024 End: 09-29-2024 Patient encounter procedure 09/29/2024 12:30 PM EST Office Visit Radiology [address] [place] [address] Direct pt.to MRI U15 desk Radiology Comment on above: Direct pt.to MRI U15 desk Start: 08-26-2024 Depression Monitoring Depression [facility] Start: 08-26-2024 Depresssion Monitoring Depresssion M onitoring [facility] Start: 08-25-2024 End: 08-25-2024 Patient encounter procedure [facility] Start: 07-10-2024 COVID-19 Vaccine ( season) COVID-19 Vaccine ( season) [facility] Start: 07-10-2024 COVID-19 Vaccine ( season) COVID-19 Vaccine ( season) [facility] Start: 07-10-2024 Covid-19 Vaccine ( season) Covid-19 Vaccine () [facility] Start: 07-10-2024 Influenza vaccination [facility] Start: 04-26-2024 End: 04-26-2024 Patient encounter procedure Molecular Imaging Comment on above: NM PET/CT BRAIN PLAQ [facility] Start: 04-22-2024 Depresssion [facility] Start: 04-19-2024 End: 04-19-2024 Patient encounter procedure 04/19/2024 9:30 AM EDT Office Visit Radiology [address] [place] [address] Research [id number] Subject [id number] Day 162 MRI Radiology Comment on above: Research [id number] Subject [id number] Day 162 MRI Start: 02-25-2024 End: 02-25-2024 Patient encounter procedure 02/25/2024 8:45 AM EDT Office Visit [facility] [address] [place] [phone] Gunjan Castillo MD [address] [address] [facility] Start: 01-26-2024 5,10-methylenetetrah ydr ofolate reductase gene analysis [facility] Start: 11-09-2023 Advance Directive Discussion Advance Directive Discussion [facility] Start: 11-09-2023 Behavioral Health Screening Behavioral Health Screening [facility] Start: 11-09-2023 Depression Assessment Depression Ass essment [facility] Start: 11-09-2023 Medicare Advantage Annual Wellness Visit Medicare Advantage Annual Wellness Visit [facility] Start: 10-22-2023 End: 10-22-2024 Cobalamin (Vitamin B12) [Mass/volume] in Serum or Plasma Vitamin B12 Lab Routine Vitamin B12 deficiency Expected: 10/22/2023 (Approximate), Expires: 10/22/2024 [employer] Work Phone: Comment on above: Expected: 10/22/2023 (Approximate), Expires: 10/22/2024 Start: 08-28-2023 Depresssion Monitoring [facility]ion [facility] Start: 07-10-2023 COVID-19 Vaccine ( season) COVID-19 Vaccine ( season) [facility] Start: 07-10-2023 Covid-19 Vaccine ( season) Covid-19 Vaccine () [facility] Start: 07-10-2023 Influenza vaccination C [facility] Start: 02-17-2023 Depression Monitoring Depression Mon itoring [facility] Start: 11-09-2022 ADVANCE DIRECTIVE DISCUSSION ADVANCE DIRECTIVE DISCUSSION [facility] Start: 11-09-2022 DEPRESSION ASSESSMENT DEPRESSION ASS ESSMENT [facility] Start: 10-07-2022 DIABETES [facility]CREEN [facility] Start: 10-07-2022 Diabetes Screening Diabetes Screenin g [facility] Start: 07-10-2022 Influenza vaccination C [facility] Start: 06-09-2022 Influenza vaccination Flu vaccine (# 1) [facility] Start: 11-30-2021 COVID-19 VACCINE (4 - Booster for Pfizer series) COVID-19 VACCINE (4 - Booster for Pfizer series) [facility] Start: 11-30-2021 Covid-19 Vaccine (4 - Pfizer series) Covid-19 Vaccine (4 - Pfizer series) [facility] Start: 11-09-2021 ADVANCE DIRECTIVE DISCUSSION ADVANCE DIRECTIVE DISCUSSION [facility] Start: 10-14-2021 Annual Wellness Visi t (AWV) Annual Wellness Visit (AWV) [facility] Start: 2021 RSV Immunization for Adults (1 - 1-dose 75+ series) RSV Immunization for Adults (1 - 1-dose 75+ series) [facility] Start: 2021 RSV Vaccine (1 - 1-d ose 75+ series) RSV Vaccine (1 - 1-dose 75+ series) [facility] Start: 2021 RSV Vaccine (75+ years) RSV Vaccine (75+ years) [facility] Start: 2021 RSV vaccine (adult) (1 - 1-dose 75+ series) RSV vaccine (adult) (1 - 1-dose 75+ series) [facility] Start: 10-06-2020 Adult depression screening assessment DEPRESSION SCREENING [facility] Start: 2011 BONE DENSITY BONE DENSITY [facility] Start: 2011 Bone Density Screening Bone Density Screening [facility] Start: 2011 Pneumococcal 65+ yea rs Vaccine (1 - PCV) Pneumococcal 65+ years Vaccine (1 - PCV) [facility] Start: 2011 Pneumococcal vaccination [facility] Start: 2011 Pneumococcal Vaccine : 65+ (1 - PCV) Pneumococcal Vaccine: 65+ (1 - PCV) [facility] Start: 2011 Pneumococcal Vaccine : 65+ (1 of 1 - PCV) Pneumococcal Vaccine: 65+ (1 of 1 - PCV) [facility] Start: 2011 Pneumococcal Vaccine : 65+ Years (1 - PCV) Pneumococcal Vaccine: 65+ Years (1 - PCV) [facility] Start: 2011 Pneumococcal Vaccine : 65+ Years (1 of 1 - PCV) Pneumococcal Vaccine: 65+ Years (1 of 1 - PCV) [facility] Start: 2011 PNEUMOCOCCAL: 65+ (1 - PCV) PNEUMOCOCCAL: 65+ (1 - PCV) [facility] Start: 2011 PNEUMOVAX AGE 65 AND OVER WITH 5YR LOOKBACK (#1) PNEUMOVAX AGE 65 AND OVER WITH 5YR LOOKBACK (#1) [facility] Start: 2011 Screening for osteoporosis [facility] Start: 2006 Hepatitis B (HBV) Vaccine (optional start 60+ years) Hepatitis B (HBV) Vaccine (optional start 60+ years) [facility] Start: 2006 RSV Immunization age d 60 or older (1 - 1-dose 60+ series) RSV Immunization aged 60 or older (1 - 1-dose 60+ series) [facility] Start: 2006 RSV Vaccine (1 - 1-d ose 60+ series) RSV Vaccine (1 - 1-dose 60+ series) [facility] Start: 2001 Screening for osteoporosis DEXA (modify frequency per FRAX score) [facility] Start: 1996 Pneumococcal vaccination Pneumococcal Vaccine(s) (50+ yrs) (1 of 1 - PCV) [facility] Start: 1996 Pneumococcal Vaccine : 50+ (1 of 1 - PCV) Pneumococcal Vaccine: 50+ (1 of 1 - PCV) [facility] Start: 1996 Pneumococcal Vaccine : 50+ Years (1 of 1 - PCV) Pneumococcal Vaccine: 50+ Years (1 of 1 - PCV) [facility] Start: 1996 Shingles (RZV) Vacci ne (1 of 2) Shingles (RZV) Vaccine (1 of 2) [facility] Start: 1996 Shingles vaccine (1 of 2) Shingles vaccine (1 of 2) [facility] Start: 1996 SHINGRIX VACCINE (1 of 2) SHINGRIX VACCINE (1 of 2) [facility] Start: 1996 Zoster Vaccines (1 o f 2) Zoster Vaccines (1 of 2) [facility] Start: 1991 COLOGUARD (FIT-DNA) COLOGUARD (FIT-D NA) [facility] Start: 1991 Colonoscopy COLONOSCOPY [facility] Start: 1991 COLORECTAL CANCER SCREENING COLORECTAL CANCER SCREENING [facility] Start: [address] COLONOGRAPHY [facility] Start: 1991 FECAL OCCULT BLOOD FECAL OCCULT BLOO D [facility] Start: 1991 SIGMOIDOSCOPY SIGMOIDOSCOPY [facility] Start: 1965 DTaP/Tdap/Td vaccine (1 - Tdap) DTaP/Tdap/Td vaccine (1 - Tdap) [facility] Start: 1965 DTaP/Tdap/Td Vaccine s (1 - Tdap) DTaP/Tdap/Td Vaccines (1 - Tdap) [facility] Start: 1965 Hepatitis A (HAV) Vaccine (optional start 19+ years) Hepatitis A (HAV) Vaccine (optional start 19+ years) [facility] Start: 1965 Urine microalbumin profile [facility] Start: 1964 Anxiety Screening Anxiety Screening [facility] Start: 1964 Depression Screening Depression Scre ening [facility] Start: 1964 Diabetes mellitus screening Diabetes Screening [facility] Start: 1964 HEPATITIS C SCREENING HEPATITIS C SC REENING [facility] Start: 1964 Hepatitis C screening S [facility] Start: 1964 Tetanus + diphtheria + acellular pertussis vaccine (product) Tdap Booster [facility] Start: 1956 Lipid panel Lipids [facility] Start: 1946 COVID-19 Vaccine (#1) COVID-19 Vacci ne (#1) [facility] Start: 1946 Hepatitis B Vaccines (1 of 3 - 3-dose series) Hepatitis B Vaccines (1 of 3 - 3-dose series) [facility] Start: 1946 Lipid panel Lipid Panel [facility] Start: 1946 Medicare Advantage Annual Wellness Visit (AWV) Medicare Advantage Annual Wellness Visit (AWV) [facility] Start: 1946 Screening for osteoporosis Bone Density Scan [facility] 5,10-methylenetetrah ydr ofolate reductase gene analysis [facility] ECG 12 lead ECG 12 lead CV E CG Routine Irregular heart rate 02/23/2025 9:57 AM EDT [facility] [facility] Work Phone: End: 02-28-2023 ECG COMPLETE ECG COMPLETE ECG Routine PSVT (paroxysmal supraventricular tachycardia) (HCC) 1 Occurrences starting 02/28/2022 until 02/28/2023 [facility] Work Phone: Comment on above: 1 Occurrences starti ng 02/28/2022 until 02/28/2023 End: 02-24-2025 MR Brain WO contrast MRI BRAIN WO IVCON Radiology Routine Examination for normal comparison or control in clinical research 1 Occurrences starting 01/27/2024 until 02/24/2025 [facility] Work Phone: Comment on above: 1 Occurrences starti ng 01/27/2024 until 02/24/2025 End: 02-20-[address] for attenuation limited area NM PET/CT BRAIN PLAQUE IMAGING Radiology Routine Examination for normal comparison or control in clinical research 1 Occurrences starting 01/22/2023 until 02/20/2024 [facility] Work Phone: Comment on above: 1 Occurrences starti ng 01/22/2023 until 02/20/2024 End: 05-15-2025 PET+CT Brain for amyloidosis NM PET/CT BRAIN PLAQUE IMAGING Radiology Routine Examination of participant or control in clinical research 1 Occurrences starting 04/16/2024 until 05/15/2025 [facility] Work Phone: Comment on above: 1 Occurrences starti ng 04/16/2024 until 05/15/2025 PET+CT Brain for amyloidosis NM PET/CT BRAIN PLAQUE IMAGING Radiology Routine Examination of participant or control in clinical research 04/26/2024 3:31 PM EDT [facility] Work Phone: End: 10-14-2025 PET+CT Brain for amyloidosis NM PET/CT BRAIN PLAQUE IMAGING Radiology Routine Examination of participant or control in clinical research 1 Occurrences starting 09/15/2024 until 10/14/2025 [facility] Work Phone: Comment on above: 1 Occurrences starti ng 09/15/2024 until 10/14/2025 PET+CT Brain for amyloidosis NM PET/CT BRAIN PLAQUE IMAGING Radiology Routine Examination of participant or control in clinical research 09/29/2024 3:39 PM EST [facility] Work Phone: [facility] Immunizations Immunization Date Immunization Notes Care Provider Fa david 09-23-2007 influenza virus vacc ine, unspecified formulation [facility] Work Phone: [facility] Payers Date Payer Category Payer Medicare [id number] 2024 Medicare [id number] 2024 Self-pay [id number] 2022 Commercial Indemnity COMMERCIAL INSURANCE - OTHER Member Subscriber Plan / Payer (Effective 2022-Present) Name: Cyndee Vital Relation to Subscriber: Self Name: Cyndee Vital Payer ID: Not on file Group ID: Not on file Type: Indemnity Address: [address] [place] [address] [id number] 11-09-2022 Medicare HMO [id number] 11-09-2022 Private Health Insurance [id number] 11-09-2022 Unknown COMMERCIAL INSUR ANCE - OTHER COMMERCIAL INSURANCE OTHER [id number] 11/09/2022-Present [id number] [place] [address] Indemnity [id number] 11-09-2020 Medicare UHC AARP MEDICAR E [facility] AAR MEDICARE HMO [id number] 11/09/2020-Present [phone] [address] [address] [place] [address] O [id number] 11-09-2020 Medicare [id number] 11-09-2020 Medicare [id number] 05-09-2011 Medicare MEDICARE PART A B [id number] 1945 Unknown [id number] 1945 Unknown [id number] 1946 Unknown [id number] 1946 Unknown [id number] .1945 Unknown [id number] .8 1945 Unknown [id number] Private Health Insurance Private Health Insurance [employer] [facility] [id number] Unknown AARP [id number] Unknown PH[employer]ICIAN [employer] CO [id number] Unknown [id number] Unknown [id number] Unknown [id number] Unknown [id number] Unknown [id number] Unknown [id number] Unknown [id number] Unknown [id number] Unknown [id number] Social History Date Type Detail Facility Start: 10-06-2019 End: 01-13-2024 Never smoked tobacco (finding) [facility] Start: 1945 Sex Assigned At Female [facility] Start: 10-06-2019 End: 01-13-2024 Tobacco use and exposure Smokeless tobacco non-user [facility] Start: 02-28-2022 End: 08-30-2024 Alcohol intake Current drinker of alcohol (finding) [facility] Start: 10-06-2019 History SDOH Alcohol Frequency 2 [facility] Start: 10-06-2019 History SDOH Alcohol Std Drinks 1 [facility] Start: 10-06-2019 History SDOH Alcohol Comment occasional [facility] Start: 1945 Sex Assigned At Not on file [facility] Start: 08-12-2022 End: 02-26-2023 Exposure to SARS-CoV-2 (event) Not sure [facility] Start: 12-21-2020 End: 08-31-2023 Tobacco smoking status NHIS Unknown if ever smoked [facility] Start: 02-26-2023 End: 02-23-2025 Alcohol intake Ex-drinker (finding) [facility] Start: 02-26-2023 End: 02-20-2025 Alcohol intake [facility] Start: 02-26-2023 End: 02-20-2025 Gender identity Not on file [facility] Start: 02-18-2023 Gender identity Identifies as female gender (finding) [facility] Start: 02-18-2023 Sexual orientation Heterosexual (finding) [facility] How often to you hav e a drink containing alcohol? Monthly or less [facility] Work Phone: How many standard dr inks containing alcohol do you have on a typical day? 1 or 2 [facility] Work Phone: How often do you hav e 6 or more drinks on 1 occasion? Never [facility] Work Phone: PHQ2 Score 0 [facility] Start: 06-09-2022 End: 11-04-2022 Sex Female (finding) [facility] Has the [employer], [employer], or [employer] threatened to shut off services in your home in past 12Mo No [facility] Do you belong to any clubs or organizations such as temple groups, unions, fraternal or athletic groups, or school groups? Yes [facility] Are you now , , , , never or living with a partner? [facility] How hard is it for y ou to pay for the very basics like food, housing, medical care, and heating Somewhat hard [facility] Do you feel stress - tense, restless, nervous, or anxious, or unable to sleep at night because your mind is troubled all the time - these days [OSQ] To some extent [facility] How often do you nee d to have someone help you when you read instructions, pamphlets, or other written material from your doctor or pharmacy [SILS] Always [facility] Functional Status Date Assessment Result Facility 01-03-2024 Are you deaf, or do you have serious difficulty hearing No 01/03/2024 10:37 AM Tyra Patiño RN No [facility] 01-03-2024 Are you blind, or do you have serious difficulty seeing, even when wearing glasses No 01/03/2024 10:37 AM Tyra Patiño RN No [facility] 01-03-2024 Do you have serious difficulty walking or climbing stairs No 01/03/2024 10:37 AM Tyra Patiño, PAULETTE No [facility] 01-03-2024 Do you have difficul ty dressing or bathing No 01/03/2024 10:37 AM Tyra Patiño RN No [facility] 01-03-2024 Because of a physica l, mental, or emotional condition, do you have difficulty doing errands alone such as visiting a physician's office or shopping Yes 01/03/2024 10:37 AM Tyra Patiño RN Yes [facility] Mental Status Date Assessment Result Facility 01-03-2024 Because of a physica l, mental, or emotional condition, do you have serious difficulty concentrating, remembering, or making decisions Yes 01/03/2024 10:37 AM Tyra Patiño RN Yes [facility] Clinical Notes 10-06-2019 to 08-29-2025 Telephone Encounter - Gunjan Castillo MD - 08/29/2025 5:43 PM EDTTelephone Encounter - Gunjan Castillo MD - 08/29/2025 5:43 PM EDTTelephone Encounter - Roxann Howard - 08/29/2025 2:33 PM EDT Note Date & Type Note Facility 08-29-2025 Telephone encounter Note Noted Thank you [facility] 08-29-2025 Miscellaneous Notes Noted Thank you Cancelled. Name of caller: Elizabeth Contact phone number: [phone] Relationship to Patient: daughter Provider: Jonathan Practice: [facility] Chief Complaint/Reason for Call: Elizabeth called to cancel pt appt on 08/31/25, she is in [facility] unit. Best time of day caller can be reached: any Patient advised that office/PCP has 24-48 business hours to return their call: N/A documented in this encounter [facility] 08-29-2025 Telephone encounter Note Cancelled. [facility] 08-29-2025 Telephone encounter Note Name of caller: Elizabeth Contact phone number: [phone] Relationship to Patient: daughter Provider: Jonathan Practice: [facility] Chief Complaint/Reason for Call: Elizabeth called to cancel pt appt on 08/31/25, she is in [facility]. Best time of day caller can be reached: any Patient advised that office/PCP has 24-48 business hours to return their call: N/A [facility] 02-24-2025 Note Sinus rhythm Ventricular premature complex Abnormal R-wave progression, early transition No previous ECG available for comparison Electronically Signed On 02-24-2025 10:47:30 EDT by [facility] 02-24-2025 Note IMPRESSION: Sinus rhythm Ventricular premature complex Abnormal R-wave progression, early transition No previous ECG available for comparison Electronically Signed On 02-24-2025 10:47:30 EDT by [facility] 02-23-2025 Telephone encounter Note Requested papers were signed by Dr Castillo and faxed to [phone]. [facility] 02-23-2025 Miscellaneous Notes Requested papers were signed by Dr Castillo and faxed to [phone]. Thanks! Patient will be moving into [facility]. They need the following per daughter: -History and Physical -Face Sheet -Med List -Progress Notes -Discharge orders ( statement from the physician recommending Technical Delivery Manager Care Placement) They could be sent by email or fax to [email or web address] F: [phone] Can you print out today's note, today's letter, a facesheet, and a medication list? Once I sign the note/letter, then this can be faxed to [facility]. Thanks! I spoke to Elizabeth and she [...] correct on the Med list for the penitentiary documented in this encounter [facility] 02-23-2025 Telephone encounter Note Thanks! Patient will be moving into [facility]. They need the following per daughter: -History and Physical -Face Sheet -Med List -Progress Notes -Discharge orders ( statement from the physician recommending Senior Living Care Placement) They could be sent by email or fax to [email or web address] F: [phone] Can you print out today's note, today's letter, a facesheet, and a medication list? Once I sign the note/letter, then this can be faxed to [facility]. Thanks! [facility] 02-23-2025 Telephone encounter Note I spoke to Elizabeth and she said it was recently changed to: 25 mg at 10:00 am, 25 mg at 2:00 pm, 50 mg at 5:00 pm and 50 mg at 8:00 pm [facility] 02-23-2025 Telephone encounter Note Can you call and confirm the quetiapine (Seroquel) dosing with madi Johnson? We have the dose as 50 mg at lunch, 50 mg at 4 pm, and 100 mg at 8 pm. I want to make sure it is correct on the Med list for the penitentiary [facility] 02-23-2025 History of Present illness Narrative Images from the original note were not included. [facility] - [address] [address] Dept: [phone] Dept Loc: [phone] Visit type: [facility] Follow Up Visit Reason for Visit: [...] at [facility] -We did call madi Johnson to confirm seroquel dosing. Neurology manages. She reported the seroquel is currently dosed at: 25 mg at 10:00 am, 25 mg at 2:00 pm, 50 mg at 5:00 pm and 50 mg at 8:00 pm -Plan is for patient to move into [facility] care unit. I agree that she is appropriate for assisted care placement at this time due to [...] Disease, hypertension, depression who presents to the [facility] for a follow-up visit. The patient [...] on seroquel for behavioral disturbance. Now with 24/7 care at home -Last seen in August 2024: Behaviors/Mood stable on the seroquel prescribed by her Research [facility]. They had prescribed ambien for sleep as well. MMSE 11/07 Received Bonica.cot message from the family: Patient will be moving into a memory care unit at [facility]. Will do the H and P for admission at today's appointment History obtained from caregiver(s): Son Hao -Her cognition has continued to decline. Communication skills have really declined. Doesn't comprehend what family says - even instructions like wash your hands. -Unsteady on her feet. Not using a cane or a walker. No falls recently. -Mood: Does get mad at times. Can be more mean. Gets more agitation in the evenings. Will be restless and say she wants to go home. Occasionally she has tried to become physically combative with her daughter in the evenings (when she wants to escape). -Has a 24 hour hose builder. -Sleep: Better now. -Appetite: Still eats well. Does play with her food a lot. -Hallucinations: No -No physical health issues. -Goes to on walks with her caregiver. History obtained from patient: -Things going well. -Memory: pretty good. No trouble noticed. -Mood: Doing well. Doesn't feel down or hopeless. No stress or worry. -Sleep: I like to go to bed. -Appetite: Good. -Physical health: Good. No aches or pains. No fevers or nausea. Stomach feels good. Breathing feels fine. -Vision: wears glasses. She says: I see you. -Hallucinations: none. -Hearing: good. -Walking: good. 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 Activities: watches tv, spends time with cat >>02/17/22 just went on vacation, walks in condo, plays cards, plays piano, visiting friends >>08/22/22 outside, TV, cat sits out with neighbor, temple, >>02/26/23 walks, visits with neighbors, temple, kids' sports games, just came back from vacation >>10/22/23 same >>02/25/24 visits with aide, getting to physical therapy, going on walks >>08/25/24 visits with aides, goes to [facility], goes to [facility] >>02/23/25 same Exercise: walks around her house >>02/17/22 walking, weights >>08/22/22 walks around the condo or in her neighborhood >>02/26/23 walks >>10/22/23 walks >>02/25/24 walks, physical therapy >>08/25/24 walking, goint to [facility] Finances: meeting soon with Medicaid ip technology transactions attorney Healthcare Power of Board Filler: Yes, Daughter Elizabeth Financial Power of Board Filler: Yes, Daughter Elizabeth Living Will: Yes Guardian:No [...] sees her sometimes >>02/25/24 has 24 hour geriatric care manager, Xochitl who is living with her, another [...] members. SW suggested that daughter check out [email or web address] to check out any other products that [...] No resources given today. >>08/25/24 Still has 24/ aide, patient still involved with research study. [...] will do fresh foods, etc, goes to [employer] >>02/26/23 patient buys her dry products at [employer], daughter picks up the rest >>10/22/23 same [...] same >>08/25/24 same documented in this encounter [facility] 01-24-2025 Telephone encounter Note Request for refill received from interface Last appointment: 08/25/2024 Next appointment: 02/23/2025 Pharmacy confirmed: [x] Yes [] No [facility] 01-24-2025 Miscellaneous Notes Request for refill received from interface Last appointment: 08/25/2024 Next appointment: 02/23/2025 Pharmacy confirmed: [x] Yes [] No documented in this encounter [facility] 09-29-2024 History of Present illness Narrative [...] to prevent falls during this visit? [place] Risk Wristband Applied, Offered Assistance with Transfers/Clothing, and Increased Observations by Caregivers PATIENT GENDER DATA: .female : No ALLERGIES: Reviewed and unchanged MEDICATIONS REVIEWED: Yes PATIENT RELEVANT IMPLANT DATA REVIEWED: Not Applicable PATIENT PRESENTS WITH AN IMPLANTABLE OR ATTACHED MATHEMATICS INSTRUCTOR: No CREATININE: Creatinine Date Value Ref Range [...] link: [email or web address] [email or web address]-%20Diagnostic%20Nuclear %20Medicine%20Procedures.pdf SIGNATURE: MERLINE Silva) PATIENT NAME: Cyndee Vital DATE: September 29, 2024 TIME: 2:27 PM PAGER/CONTACT #: documented in this encounter [facility] 09-29-2024 Note HNO ID: [id number] Author: RAISA SMITH RT(R) Service: Radiology Author [...] to prevent falls during this visit? [place] Risk Wristband Applied, Offered Assistance with Transfers/Clothing, and Increased Observations by Caregivers PATIENT GENDER DATA: .female : No ALLERGIES: Reviewed and unchanged MEDICATIONS REVIEWED: Yes PATIENT RELEVANT IMPLANT DATA REVIEWED: Not Applicable PATIENT PRESENTS WITH AN IMPLANTABLE OR ATTACHED MATHEMATICS INSTRUCTOR: No CREATININE: Creatinine Date Value Ref Range [...] 1424 PATIENT DISCHARGED TO: Ambulatory patient, left [place] department area. Is this a therapy: No A Diagnostic radioactive procedure has taken place, with no further precautions necessary other than routine body substance precautions. More information regarding radiation safety can be found using this link: [email or web address] [email or web address]-% 20Diagnostic%20Nuclear%20Medicine% 20Procedures.pdf SIGNATURE: RT Shira(R) PATIENT NAME: Cyndee Vital DATE: September 29, 2024 TIME: 2:27 PM PAGER/CONTACT #: [facility] 09-19-2024 Telephone encounter Note CYNDEE VITAL \ [id number] DOS: 09/29/24 PET INJ: 1430 PET 4: 1530 APPT NOTES: DO NOT SUBMIT AUTH TO INSURANCE, BILLED TO [employer] [id number] PET BRAIN AMYVID [employer] TRANSMITTAL FORM PET 2 ONLY NO CHARGE FOR DOSE [facility] 09-19-2024 Miscellaneous Notes CYNDEE VITAL \ [id number] DOS: 09/29/24 PET INJ: 1430 PET 4: 1530 APPT NOTES: DO NOT SUBMIT AUTH TO INSURANCE, BILLED TO [employer] [id number] PET BRAIN AMYVID [employer]Y TRANSMITTAL FORM PET 2 ONLY NO CHARGE FOR DOSE documented in this encounter [facility] 08-25-2024 History of Present illness Narrative Review [...] the original note were not included. [facility] [address] [facility] [address] Dept: [phone] Dept Loc: [phone] Visit type: [facility] Follow Up Visit Reason for Visit: [...] Disease, hypertension, depression who presents to the [facility] for a follow-up visit. The patient [...] with the research study. Receiving injections/infusions. The blooming on her brain MRI cleared up. -The research physicians prescribe her seroquel and ambien. The seroquel is 50 mg at lunch, 50 mg at four pm, and 100 mg at bedside. This helps to control behaviors. No longer gets upset. -Did have one behavioral blip recently. On Thursday she crawled out a [...] well. Hasn't complained about sciatica. Appetite: Good. Contact Center Team Lead cooks for her. She has gained weight. -Still with 01/06 care. Sleep: Research physicians put her on ambien. She is tolerating this well. Sleep is overall better with the seroquel and ambien. Mood: Good overall. A little depressed at times. Upset she crawled out the window. History obtained from patient: Doing well today. Memory: pretty good. No problems noticed. Sh does not think she receives any help during the day. Mood: doing well. No anxiety. Hallucination: None Sleep: good. Appetite: I love to eat. Physically feeling well. No pains anywhere. 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: watches tv, spends time with cat >>02/17/22 just went on vacation, walks in [place] [place], plays cards, plays piano, visiting friends >>08/22/22 outside, TV, cat sits out with neighbor, temple, >>02/26/23 walks, visits with neighbors, temple, kids' sports games, just came back from vacation >>10/22/23 same >>02/25/24 visits with aide, getting to physical therapy, going on walks >>08/25/24 visits with aides, goes to [facility], goes to [facility] Exercise: walks around her house >>02/17/22 walking, weights >>08/22/22 walks around the condo or in her neighborhood >>02/26/23 walks >>10/22/23 walks >>02/25/24 walks, physical therapy >>08/25/24 walking, goint to [facility] Finances: meeting soon with Medicaid ip technology transactions attorney Healthcare Power of Board Filler: Yes, Madi Johnson Financial Power of Board Filler: Yes, Daughter Elizabeth Living Will: Yes Guardian:No [...] sees her sometimes >>02/25/24 has 24 hour geriatric care managerXochitl who is living with her, another aide [...] members. SW suggested that daughter check out [email or web address] to check out any other products that [...] will do fresh foods, etc, goes to [employer] >>02/26/23 patient buys her dry products at [employer], daughter picks up the rest >>10/22/23 same [...] same >>08/25/24 same documented in this encounter [facility] 07-22-2024 Telephone encounter Note Ordering provider: Gunjan Castillo Date of last office visit: 02/25/24 Date of next office visit: 08/25/24 Updated/Validated preferred pharmacy: Yes [id number] - [place], [place] - [address] [phone] Patient instructed to contact the pharmacy prior [...] of last refill (see medication tab): 12/28/23 [facility] 07-22-2024 Miscellaneous Notes Ordering provider: Gunjan Castillo Date of last office visit: 02/25/24 Date of next office visit: 08/25/24 Updated/Validated preferred pharmacy: Yes [id number] - [place], [place] - [address] [phone] Patient instructed to contact the pharmacy prior [...] medication tab): 12/28/23 documented in this encounter [facility] 04-26-2024 History of Present illness Narrative [...] PATIENT PRESENTS WITH AN IMPLANTABLE OR ATTACHED MATHEMATICS INSTRUCTOR: No CREATININE: Creatinine Date Value Ref Range [...] PM PAGER/CONTACT #: documented in this encounter [facility] 04-26-2024 Note HNO ID: [id number] Author: EMERSON MOCTEZUMA RT (R) Service: Nuclear [...] PATIENT PRESENTS WITH AN IMPLANTABLE OR ATTACHED MATHEMATICS INSTRUCTOR: No CREATININE: Creatinine Date Value Ref Range [...] 14:16 PATIENT DISCHARGED TO: Ambulatory patient, left [place] department area. A Diagnostic radioactive procedure has taken place, with no further precautions necessary other than routine body substance precautions. More information regarding radiation safety can be found using this link: [email or web address] [email or web address]-% 20Diagnostic%20Nuclear%20Medicine% 20Procedures.pdf SIGNATURE: RT Sy(R) PATIENT NAME: Cyndee Vital DATE: April 26, 2024 TIME: 2:22 PM PAGER/CONTACT #: [facility] 04-18-2024 Telephone encounter Note Scheduled as requested 04/26 @ 0622 [facility] 04-18-2024 Miscellaneous Notes Scheduled as requested 04/26 @ 1530 CYNDEE VITAL \ [id number] DOS: 04/26/24 PET INJ: 1430 PET 2: 1530 APPT NOTES: DO NOT SUBMIT AUTH TO INSURANCE, BILLED TO [employer] [id number] PET BRAIN AMYVID [employer] TRANSMITTAL FORM PET 2 ONLY documented in this encounter [facility] 04-18-2024 Telephone encounter Note CYNDEE VITAL \ [id number] DOS: 04/26/24 PET INJ: 1430 PET 2: 1530 APPT NOTES: DO NOT SUBMIT AUTH TO INSURANCE, BILLED TO [employer] [id number] PET BRAIN AMYVID [employer] TRANSMITTAL FORM PET 2 ONLY [facility] 02-25-2024 History of Present illness Narrative Review [...] from the original note were not included. [facility] [address] [place] [address] Dept: [phone] Dept Loc: [phone] Visit type: [facility] Follow Up Visit Reason for Visit: [...] her home. Will eventually transition into a penitentiary but family want to keep her home as long as possible. Follow up in about 6 months (around 08/26/2024). Subjective HPI: Cyndee Vital is a 78 y.o. female with past medical history of Alzheimer's Disease, hypertension, depression who presents to the [facility] for a follow-up visit. The patient [...] the end of December 2023: abdominal/back pain. [place] it was related to sciatica. Also tested positive for COVID. -Seen in ER on 01/12: she had a fall off the toilet and hit the back of her had. She had been taking flexeril for back pain. -In middle of January, daughter called in concerned about behavior changes. Patient left her condo, approached a automobile tester, and asked them to take her home. [...] MAY REPRESENT HEMOSIDEROSIS FROM PRIOR SUBARACHNOID HEMORRHAGE. -started on folate and vitamin B6 History [...] She now has 24/7 care. She gets mean and agitated. She tries to run away. Police had [...] He was told that the medication caused blooming changes that can look like a stroke. [...] back -She now has a live in respiratory care assistant and is receiving 01/06 care. Son is [...] poor. Comprehension: poor. Always losing things. Will slate picker a pack of cards and will ask are these my shoes? Mood: No tearfulness. Does have periods of contentment/happiness. However, she can get mad. Says I want to go home even when she is at home. History obtained from patient: -She feels she is doing pretty well -memory: not as clear as it used to be. Not able to answer questions on the test today -She says she is not receiving help in her home. -Mood: I think it's been doing good. No anxiety. Occasionally feels down. Not irritated -No hallucinations. -Appetite: I like to eat -Sleep: Seems well. -Physically been feeling well. [...] asymmetry. Motor: Motor function is intact. Coordination: Taougt-Xcmu-Dbpyvp Test normal. 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: watches tv, spends time with cat >>02/17/22 just went on vacation, walks in condo, plays cards, plays piano, visiting friends >>08/22/22 outside, TV, cat sits out with neighbor, temple, >>02/26/23 walks, visits with neighbors, temple, kids' sports games, just came back from vacation >>10/22/23 same >>02/25/24 visits with aide, getting to physical therapy, going on walks Exercise: walks around her house >>02/17/22 walking, weights >>08/22/22 walks around the condo or in her neighborhood >>02/26/23 walks >>10/22/23 walks >>02/25/24 walks, physical therapy Finances: meeting soon with Medicaid ip technology transactions attorney Healthcare Power of Board Filler: Yes, Daughter Elizabeth Financial Power of Board Filler: Yes, Daughter Elizabeth Living Will: Yes Guardian:No [...] sees her sometimes >>02/25/24 has 24 hour geriatric care managerXochitl who is living with her, another aide [...] members. SW suggested that daughter check out [email or web address] to check out any other products that [...] will do fresh foods, etc, goes to [employer] >>02/26/23 patient buys her dry products at [employer], daughter picks up the rest >>10/22/23 same [...] same >>02/25/24 same documented in this encounter [facility] 02-01-2024 History of Present illness Narrative [...] PATIENT PRESENTS WITH AN IMPLANTABLE OR ATTACHED MATHEMATICS INSTRUCTOR: No RADIOLOGY DEPARTMENT: MR; Exam(s) Completed: Head: Routine Brain PERIPHERAL IV DATA: Not applicable SIGNED BY: RT Radha(R) February 01, 2024 10:07 AM documented in this encounter [facility] 01-26-2024 Telephone encounter Note I spoke to daughter Elizabeth. I read her the instructions from Dr Bright verbatim. She understands she needs to be seen by PCP first available. I also got patient scheduled with jonathan 02/25/2024. [facility] 01-26-2024 Miscellaneous Notes I spoke to [...] at time of page. I spoke with [facility] nurse Yudy. I asked Yudy [...] Social Work(er) Yesica Coats. Sending to our try out person Yoselyn to please schedule in the next 2-[address] Castillo if [address]. Castillo has any openings. Otherwise, can offer patient to see a different provider who has openings sooner if patient/family amenable. S: Patient's Daughter Elizabeth spoke with [facility] nurse regarding update to previous [...] very rapidly. R: Secure chat sent to television technician Provider Dr Bright who called and advised that Patient have increased supervision at home, if Daughter Elizabeth feels the Patient is a risk to herself or others she should call 911 and have the Patient taken to [facility] emergency room, also advised Elizabeth [...] symptoms. S: Patient's daughter, Elizabeth spoke with [facility] nurse regarding anxiety and fear. [...] the triager Protocols used: Anxiety and Panic [id number] documented in this encounter [facility] 01-26-2024 Telephone encounter Note Noted thank you. Please have office schedule an appointment with us. Also should be seen by PCP to rule out medical causes of increased anxiety [facility] 01-25-2024 Telephone encounter Note Late entry. Call returned at time of page. I spoke with [facility] nurse Yudy. I asked Yudy [...] on 10/22/23 along w Social Work(er) Yesica Pauly. Sending to our try out person Yoselyn to please schedule in the next 2-[address] Castillo if Dr. Castillo has any openings. Otherwise, can offer patient to see a different provider who has openings sooner if patient/family amenable. [employer] Phone: 01-25-2024 Telephone encounter Note S: Patient's Daughter Elizabeth spoke with [facility] nurse regarding update to previous [...] states she was in a complete panic. [facility] Police took her to her home [...] very rapidly. R: Secure chat sent to television technician Provider Dr Bright who called and advised that Patient have increased supervision at home, if Daughter Elizabeth feels the Patient is a risk to herself or others she should call 911 and have the Patient taken to [facility] emergency room, also advised Elizabeth that they need to call PCP Dr Cook and have Patient evaluated. Elizabeth understands care advice. She is asking if Dr Castillo could follow up with her and schedule an appointment to see her. Message to Provider, please advise. No further needs at this time. Patient instructed to call back with new or worsening symptoms. [facility] 01-25-2024 Telephone encounter Note Error [facility] 01-25-2024 Miscellaneous Notes Error documented in this encounter [facility] 01-25-2024 Telephone encounter Note S: Patient's daughter, Elizabeth spoke with [facility] nurse regarding anxiety and fear. [...] the triager Protocols used: Anxiety and Panic [id number] [facility] 12-28-2023 Telephone encounter Note Request for refill received from Interface Last appointment: 10/22/2024 Next appointment: recall Pharmacy confirmed: [x] Yes [] No [facility] 12-28-2023 Miscellaneous Notes Request for refill received from Interface Last appointment: 10/22/2024 Next appointment: recall Pharmacy confirmed: [x] Yes [] No documented in this encounter [facility] 10-22-2023 History of Present illness Narrative Images from the original note were not included. [facility] [address] [place] [address] Dept: [phone] Dept Loc: [phone] Visit type: [facility] Follow Up Visit Reason for Visit: Dementia Visit Date: 10/22/2023 Assessment and Plan 1. Alzheimer's dementia without behavioral disturbance (HCC) - [facility] Occupational Therapy 2. History of depression 3. Driving safety issue - [facility] Occupational Therapy 4. Vitamin [...] Disease, hypertension, depression who presents to the [facility] for a follow-up visit. The patient [...] a medical trial for Prothena. Did the blind trial of Prothena. Will be going into the open label once a month for a year. -Daughter has seem some progression of the dementia. -short term memory: iffy -She does her own laundry. Dresses appropriately. Can use the microwave but doesn't cook anymore -long term care pharmacist memory: good. -She had one episode of a weird dream that she thought was real. -No hallucinations -Driving locally. There is a GPS on the car. No accidents. -Appetite: gained 14 pounds. She has not forgotten to eat. -Sleep: Great -Mood: Increasing the dose of zoloft last visit seemed to help her mood. No depression. Gets anxious about what the future will be like. -Gets upset when the diagnosis of dementia is mentioned -Walks around her [employer] complex for exercise. She enjoys this. History obtained from patient: -She feels she is doing well. -Memory: I don't think it is well. Example: not able to give an example -Short term memory seems 'pretty good -Knows the people that she sees the most -She lives alone. -Still driving. Doesn't feel that she is in trouble. -Sleep: good -Appetite: doing well -Mood: Really good. Enjoys life -Hallucinations: good -Physical health is good. Feels good on her feet. No falls. No walker or cane. 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 Activities: watches tv, spends time with cat >>02/17/22 just went on vacation, walks in condo, plays cards, plays piano, visiting friends >>08/22/22 outside, TV, cat sits out with neighbor, temple, >>02/26/23 walks, visits with neighbors, temple, kids' sports games, just came back from vacation >>10/22/23 same Exercise: walks around her house >>02/17/22 walking, weights >>08/22/22 walks around the condo or in her neighborhood >>02/26/23 walks >>10/22/23 walks Finances: meeting soon with Medicaid ip technology transactions attorney Healthcare Power of Board Filler: Yes, Daughter Elizabeth Financial Power of Board Filler: Yes, Daughter Elizabeth Living Will: Yes Guardian:No Code Status: Full Code Primary Caregiver: Elizabeth costello Current care plan/supervision: daughter sees patient 2x/week, [...] members. SW suggested that daughter check out [email or web address] [employer]WM to check out any other products that [...] will do fresh foods, etc, goes to [employer] >>02/26/23 patient buys her dry products at [employer], daughter picks up the rest >>10/22/23 same [...] same >>10/22/23 same documented in this encounter [facility] 10-22-2023 Instructions Gunjan Castillo MD - 10/22/2023 2:45 PM EST Restart Vitamin B12 pill. This can be picked up Over The Counter. Can take 500 mcg or 1000 mcg once a day. Please get your vitamin b12 levels rechecked in one month. documented in this encounter [facility] 09-24-2023 History of Present illness Narrative [...] 1355 PATIENT DISCHARGED TO: Ambulatory patient, left [place] department area. A Diagnostic radioactive procedure has taken place, with no further precautions necessary other than routine body substance precautions. More information regarding radiation safety can be found using this link: [email or web address] [email or web address]%20Nuclear %20Medicine%20Procedures.[email or web address] SIGNATURE: RT Tae(R) PATIENT NAME: Cnydee Vital DATE: September 24, 2023 TIME: 2:02 PM PAGER/CONTACT #: documented in this encounter [facility] 09-17-2023 Miscellaneous Notes CYNDEE VITAL \ [id number] DOS: 09/24/23 PET INJ: 1430 PET 2: 1530 APPT NOTES: DO NOT SUBMIT AUTH TO INSURANCE, BILLED TO RESEARCH STUDY IAIN [id number] PET BRAIN AMYVID RESEARCH STUDY TRANSMITTAL FORM PET 2 ONLY documented in this encounter [facility] 07-30-2023 Miscellaneous Notes Opend in error documented in this encounter [facility] 07-03-2023 Telephone encounter Note (1) Medication name: [...] of last refill (see medication tab): 02.19.22 [facility] 07-03-2023 Miscellaneous Notes (1) Medication name: [...] medication tab): 02.19.22 documented in this encounter [facility] 04-13-2023 Instructions Celina Levy MD - [...] Simple Zinc oxide documented in this encounter [facility] 04-13-2023 History of Present illness Narrative Vitals not obtained per provider's instructions. Patient was identified by name and date of . Alvaro Collazo Why are you seeing the assistant professor of german (doctor) today? mole What specific location on [...] Tobacco Use? 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: watches tv, spends time with cat >>02/17/22 just went on vacation, walks in condo, plays cards, plays piano, visiting friends >>08/22/22 outside, TV, cat sits out with neighbor, temple, >>02/26/23 walks, visits with neighbors, temple, kids' sports games, just came back from vacation Exercise: walks around her house >>02/17/22 walking, weights >>08/22/22 walks around the condo or in her neighborhood >>02/26/23 walks Finances: meeting soon with Medicaid ip technology transactions attorney Healthcare Power of Board Filler: Yes, Daughter Elizabeth Financial Power of Board Filler: Yes, Daughter Elizabeth Living Will: Yes Guardian:No Code Status: Full Code Primary Caregiver: Elizabeth costello Current care plan/supervision: daughter sees patient 2x/week, [...] members. SW suggested that daughter check out [email or web address] to check out any other products that [...] will do fresh foods, etc, goes to [employer] >>02/26/23 patient buys her dried products at [employer], daughter picks up the rest Meal prep [...] note were not included. [facility] [address] [facility] [address] Dept: [phone] Dept Loc: [phone] Visit type: [facility] Follow Up Visit Reason for Visit: [...] Disease, hypertension, depression who presents to the [facility] for a follow-up visit. The patient is known to me. Chart Review: First seen in October 2021. MOCA 15/30. Repeating questions more. Getting overwhelmed with too much information. Diagnosed with mild Alzheimer's Disease -last seen by JESSICA Paez in August 2022. Continued aricept. Continue zoloft to help with mood. Having some issues with hallucinations. Discussed that one day she may need antipsychotic to help manage them. No ADL issues. Still driving. MOCA was a / History obtained from caregiver(s): Daughter Elizabeth -She finished one clinical trail for Alzheimer's Disease. Will be starting another one soon. -Her memory issues seemed to be pretty steady during the last clinical trial. 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 2nd stage: a medication to prevent the plague from building up again. -She went to [place] with the family on a trip. She [...] patient: -Memory has not been doing well. Not as sharp as it should be. Doesn't feel like the memory issues have gotten in the way of her day to day life though. -Lives alone. -Doesn't have a lot of people to talk to Watches TV a lot. Did make friends with the lady across the street. -Mood: Good. Sometimes gets a bit down. No hallucinations -Appetite: Love to eat -Sleep: sleep very well. -likes were she lives -driving locally. Not a lot. No accidents -walks around the house a lot. Sometimes around the [employer] complex Reviewed progress notes completed by ALFREDO [...] PHQ-9 score: 1 I independently reviewed the [place] Cognitive Assessment from 02/26/2023. Test scanned in [...] exam and/or evaluation documented in this encounter [facility] 02-26-2023 Instructions Gunjan Castillo MD - [...] to your pharmacy. documented in this encounter [facility] 02-19-2023 History of Present illness Narrative [...] link: [email or web address] [email or web address] %[email or web address] SIGNATURE: RT Amanda(Colette) PATIENT NAME: Cyndee Vital DATE: February 19, 2023 TIME: 2:37 PM PAGER/CONTACT #: documented in this encounter [facility] 02-19-2023 Telephone encounter Note Rescheduled. [facility] 02-19-2023 Miscellaneous Notes Rescheduled. DONNA Castillo Name of caller: Elizabeth Contact phone number: [phone] Relationship to Patient: patient daughter Provider: Dr. Castillo Practice: [facility] Chief Complaint/Reason for Call: The patient and daughter is at the [facility] getting a PET Scan because the patient [...] their call: Yes documented in this encounter [facility] 02-19-2023 Telephone encounter Note DONNA Castillo [facility] 02-19-2023 Telephone encounter Note Name of caller: Elizabeth Contact phone number: [phone] Relationship to Patient: patient daughter Provider: Dr. Castillo Practice: [facility] Chief Complaint/Reason for Call: The patient and daughter is at the [facility] getting a PET Scan because the patient is part of a trail program. They will not be able to make it to the patient appointment at 3: 45 pm today. Please call the patient daughter to reschedule the patient appointment. Best time of day caller can be reached: any Patient advised that office/PCP has 24-48 business hours to return their call: Yes [facility] 02-19-2023 Miscellaneous Notes CYNDEE VITAL \ [id number] DOS: 02/19/23 PET INJ: 1445 PET 2: 1545 APPT NOTES: ANU [id number] PET BRAIN AMYVID RESEARCH STUDY TRANSMITTAL FORM PET 2 ONLY documented in this encounter [facility] 02-28-2022 History of Present illness Narrative Images from the original note were not included. [facility]STITUTE SECTION OF [facility] CARDIOLOGY [facility] OUTPATIENT VISIT DATE February 28, 2022 PRIMARY CARE PHYSICIAN: Emi Cook ([facility]) [address] [address] HISTORY OF PRESENT ILLNESS: Ms. Vital is [...] Pulse (!) 58 Ht 154.9 cm (5' 1) Wt 49.9 kg (110 lb) SpO2 98% [...] Department of Medicine and Division of Cardiology, [facility] Food Managermanager disaster recovery [facility] Food Manager of Congestive Heart Failure Clinic [facility] Cardiology Office Food Manager [facility] Staff Accounts Administrator, Rosemary and Kristina Johnston Department of Cardiovascular Medicine/Heart and Vascular [place], [facility] Clinical Stitchdown Thread Laster Profressor of Medicine, [facility] Please note: This note has been produced using speech recognition software and may contain errors related to that system including lianet, punctuation, spelling, words, gender and phrases that may be inappropriate. documented in this encounter [facility] 10-06-2019 History of Past i llness Narrative [...] of this encounter (statuses as of 02/28/2022) [facility] History of Past illness Narrative* Problem Noted [...] of this encounter (statuses as of 01/22/2023) [facility] History of Past illness Narrative* Problem Noted [...] of this encounter (statuses as of 02/20/2023) [facility] History of Past illness Narrative* Problem Noted [...] of this encounter (statuses as of 02/20/2023) [facility] History of Past illness Narrative* Problem Noted [...] of this encounter (statuses as of 07/30/2023) [facility] History of Past illness Narrative* Problem Noted [...] of this encounter (statuses as of 09/17/2023) [facility] of Past illness Narrative* Problem Noted [...] of this encounter (statuses as of 09/25/2023) [facility] History of Past illness Narrative* Problem Noted [...] of this encounter (statuses as of 09/25/2023) [facility] of Past illness Narrative* Problem Noted [...] of this encounter (statuses as of 01/27/2024) [facility] of Past [facility] Narrative* Problem Noted [...] of this encounter (statuses as of 02/02/2024) [facility] + Plan note No data available for this section [facility] Evaluation note* Diagnosis PSVT (paroxysmal supraventricular tachycardia) (HCC)- Primary Paroxysmal supraventricular tachycardia PVC (premature ventricular contraction) Other premature beats Pure hypercholesterolemia documented in this encounter [facility] note* Diagnosis Examination for normal comparison or control in clinical research- Primary Examination of participant in clinical trial documented in this encounter [facility] note* Diagnosis Onset Date Resolution Status Acute buttock pain acute Hyperlipidemia acute Shingles acute [facility] Work Phone: Evaluation note* Diagnosis Examination for normal comparison or control in clinical research Examination of participant in clinical trial documented in this encounter [facility] note* Diagnosis Alzheimer's dementia without behavioral disturbance (HCC)- Primary Alzheimer's disease Depression, unspecified depression type documented in this encounter [facility] note* Diagnosis Seborrheic keratoses- Primary Ephelides Other dyschromia Lentigines Other dyschromia Multiple nevi documented in this encounter [facility] note* Diagnosis Depression, unspecified depression type documented in this encounter [facility] note* Diagnosis Memory changes Memory loss documented in this encounter [facility] note* Diagnosis Alzheimer's dementia without behavioral disturbance (HCC)- Primary Alzheimer's disease History of depression Personal history of other mental disorder Driving safety issue Vitamin B12 deficiency Other B-complex deficiencies documented in this encounter [facility] note* Diagnosis Examination for normal comparison or control in clinical research- Primary Examination of participant in clinical trial documented in this encounter [facility] note* Diagnosis Onset Date Resolution Status Alzheimer's dementia acute Sciatica, left side acute Alzheimer's dementia acute Change in mental status acut e Panic attacks acute Sciatica, left side acute [facility] Work Phone: Evaluation note* Diagnosis Examination for normal comparison or control in clinical research Examination of participant in clinical trial documented in this encounter [facility] note* Diagnosis Alzheimer's dementia with behavioral disturbance (HCC)- Primary Alzheimer's disease documented in this encounter [facility] note* Diagnosis Examination of participant in clinical trial- Primary documented in this encounter [facility] note* Diagnosis Examination of participant or control in clinical research- Primary Examination of participant in clinical trial documented in this encounter [facility] note* Diagnosis Examination of participant or control in clinical research- Primary Examination of participant in clinical trial documented in this encounter [facility] note* Diagnosis Examination of participant or control in clinical research Examination of participant in clinical trial documented in this encounter [facility] note* Diagnosis Depression, unspecified depression type documented in this encounter [facility] note* Diagnosis Alzheimer's dementia with behavioral disturbance (HCC)- Primary Alzheimer's disease [facility]* Diagnosis Examination of participant or control in clinical research Examination of participant in clinical trial documented in this encounter [facility] note* Diagnosis 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 Irregular heart rate Primary hypertension Unspecified essential hypertension documented in this encounter [facility] note* Diagnosis Irregular heart rate documented in this encounter [facility] note* Diagnosis 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 Irregular heart rate Primary hypertension Unspecified essential hypertension Irregular heart rate documented in this encounter [facility] Discharge instructions No data available for this section [facility] Reason for referral (narrative)* Outpatient Procedure (Routine) - Closed Specialty Diagnoses / Procedures Referred By Contac t Referred To Contact [facility] Diagnoses PSVT (paroxysmal supraventricular tachycardia) ([facility]) Procedures ECG COMPLETE ECG ROUTINE ECG W/LEAST 12 LDS W/I&R Marcus Sorensen DO [address] [place] [address] [facility] [place] [address] [place] [address] Referral ID Status Reason Start Date Expiration Date V isits Requested Visits Authorized [id number] Closed Auto-Generate d Referral 02/28/2022 02/28/2023 1 1 [facility] for referral (narrative)* Diagnostic Procedure Only (Routine) - Pending Review Specialty Diagnoses / Procedures Referred By Contac t Referred To Contact MOLECULAR & FUNCTIONAL IMAGING Diagnoses Examination for normal comparison or control in clinical research Procedures NM PET/CT BRAIN PLAQUE IMAGING PET IMAGING CT FOR ATTENUATION LIMITED AREA Amilcar Bradford MD, , PhD [address] [place] [address] Molecular & Functional Imaging [address] [place] [address] Referral ID Status Reason Start Date Expiration Date Visits Requested Visits Authorized [id number] Pending Review Auto-Generat ed Referral 01/22/2023 02/20/2024 1 1 [facility] for referral (narrative)* Diagnostic Procedure Only (Routine) - Closed Specialty Diagnoses / Procedures Referred By Contac t Referred To Contact MOLECULAR & FUNCTIONAL IMAGING Diagnoses Examination for normal comparison or control in clinical research Procedures NM PET/CT BRAIN PLAQUE IMAGING PET IMAGING CT FOR ATTENUATION LIMITED AREA Amilcar Bradford MD, MD, PhD [address] [place] [address] Molecular & Functional Imaging [address] [id number] Referral ID Status Reason Start Date Expiration Date V isits Requested Visits Authorized [id number] Closed Auto-Generate d Referral 01/22/2023 02/20/2024 1 1 [facility] for referral (narrative)* Diagnostic Procedure Only (Routine) - Closed Specialty Diagnoses / Procedures Referred By Rufino t Referred To Contact MOLECULAR & FUNCTIONAL IMAGING Diagnoses Memory changes Procedures NM PET/CT BRAIN PLAQUE IMAGING PET IMAGING CT FOR ATTENUATION LIMITED AREA Amilcar Bradford MD, , PhD [address] [place] [place] [id number] Molecular & Functional Imaging [address] [place] [address] Referral ID Status Reason Start Date Expiration Date V isits Requested Visits Authorized [id number] Closed Auto-Generate d Referral 09/15/2023 10/13/2024 1 1 [facility] for referral (narrative)* Consultation (Routine) - Pending Review Specialty Diagnoses / Procedures Referred By Contitalo t Referred To Contact Occupational Therapy / Geriatric Medicine Diagnoses Alzheimer's dementia without behavioral disturbance (HCC) Driving safety issue Procedures NE OFFICE/OUTPATIENT [facility] 60-74 MINUTES Gunjan Castillo MD [address] [place] [address] [address] [facility] [address] [place] [address] Referral ID Status Reason Start Date Expiration Date Visits Requested Visits Authorized [id number] Pending Review Specialty Services Required 3 10/22/2024 99 99 [facility] for referral (narrative)* Diagnostic Procedure Only (Routine) - Pending Review Specialty Diagnoses / Procedures [facility] Referred To Contact MOLECULAR & FUNCTIONAL IMAGING Diagnoses Examination of participant or control in clinical research Procedures NM PET/CT BRAIN PLAQUE IMAGING PET IMAGING CT FOR ATTENUATION LIMITED AREA Amilcar Bradford MD, MD, PhD [address] [place] [address] Molecular & Functional Imaging [address] [place] [address] Referral ID Status Reason Start Date Expiration Date Visits Requested Visits Authorized [id number] Pending Review Auto-Generat ed Referral 04/16/2024 05/15/2025 1 1 [facility] for referral (narrative)* Diagnostic Procedure Only (Routine) - New Request Specialty Diagnoses / Procedures [facility] Referred To Contact MOLECULAR & FUNCTIONAL IMAGING Diagnoses Examination of participant or control in clinical research Procedures NM PET/CT BRAIN PLAQUE IMAGING PET IMAGING CT FOR ATTENUATION LIMITED AREA Amilcar Bradford MD, MD, PhD [address] [id number] Molecular & Functional Imaging [address] [place] [address] Referral ID Status Reason Start Date Expiration Date Visits Requested Visits Authorized [id number] New Request Auto-Generat ed Referral 09/15/2024 10/14/2025 1 1 [facility] for visit Narrative* Diagnostic Procedure Only (Routine) - Closed Specialty Diagnoses / Procedures [facility] Referred To Contact MOLECULAR & FUNCTIONAL IMAGING Diagnoses Examination for normal comparison or control in clinical research Procedures NM PET/CT BRAIN PLAQUE IMAGING PET IMAGING CT FOR ATTENUATION LIMITED AREA Amilcar Bradford MD, , PhD [address] [place] [address] Molecular & Functional Imaging [address] [place] [address] Referral ID Status Reason Start Date Expiration Date V isits Requested Visits Authorized [id number] Closed Auto-Generate d Referral 01/22/2023 02/20/2024 1 1 [facility] for visit Narrative* Diagnostic Procedure Only (Routine) - Closed Specialty Diagnoses / Procedures Referred By Contac t Referred To Contact MOLECULAR & FUNCTIONAL IMAGING Diagnoses Memory changes Procedures NM PET/CT BRAIN PLAQUE IMAGING PET IMAGING CT FOR ATTENUATION LIMITED AREA Amilcar Bradford MD, MD, PhD [address] [place] [address] Molecular & Functional Imaging [address] [place] [address] Referral ID Status Reason Start Date Expiration Date V isits Requested Visits Authorized [id number] Closed Auto-Generate d Referral 09/15/2023 10/13/2024 1 1 [facility] for visit Narrative* Diagnostic Procedure Only (Routine) - Closed Specialty Diagnoses / Procedures Referred By Contac t Referred To Contact MOLECULAR & FUNCTIONAL IMAGING Diagnoses Examination of participant or control in clinical research Procedures NM PET/CT BRAIN PLAQUE IMAGING PET IMAGING CT FOR ATTENUATION LIMITED AREA Amilcar Bradford MD, MD, PhD [address] [place] [address] Molecular & Functional Imaging [address] [place] [address] Referral ID Status Reason Start Date Expiration Date V isits Requested Visits Authorized [id number] Closed Auto-Generate d Referral 04/16/2024 05/15/2025 1 1 [facility] for visit Narrative* Diagnostic Procedure Only (Routine) - Closed Specialty Diagnoses / Procedures Referred By Contac t Referred To Contact MOLECULAR & FUNCTIONAL IMAGING Diagnoses Examination of participant or control in clinical research Procedures NM PET/CT BRAIN PLAQUE IMAGING PET IMAGING CT FOR ATTENUATION LIMITED AREA Amilcar Bradford MD, MD, PhD [address] [id number] Molecular & Functional Imaging [address] [place] [address] Referral ID Status Reason Start Date Expiration Date V isits Requested Visits Authorized [id number] Closed Auto-Generate d Referral 09/15/2024 10/14/2025 1 1 [facility] Summary Purpose Family History No Family History Records Found Relationship Condition Age at Onset Recorded Date/T debbie mother Malignant neoplasm Unknown Malignant neoplasm of ovary Unknown daughter Malignant neoplasm of breast Unknown uncle Cardiac disease Unknown Advance Directives No Advanced Directives Records FoundDocuments on File Type Date Recorded 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 Referral ID Status Reason Start Date Expiration Date Visits Requested Visits Authorized [id number] Pending Review Auto-Generat ed Referral 01/27/2024 02/24/2025 1 1 Additional Source Comments INFORMATION SOURCE (unrecogn ized section and content) DATE CREATED AUTHOR 08/21/2021 [facility] ([place]) DATE CREATED AUTHOR AUTHOR'S ORGANIZ ATION 11/15/2021 [facility] DATE CREATED AUTHOR AUTHOR'S ORGANIZ ATION 08/30/2022 [facility] DATE CREATED AUTHOR AUTHOR'S ORGANIZ ATION 04/18/2023 [facility] DATE CREATED AUTHOR AUTHOR'S ORGANIZ ATION 09/01/2024 [facility] DATE CREATED AUTHOR AUTHOR'S ORGANIZ ATION 03/17/2025 [facility] DATE CREATED AUTHOR AUTHOR'S ORGANIZ ATION 08/30/[address] [facility] DATE CREATED AUTHOR AUTHOR'S ORGANIZ ATION 09/20/2025 [facility] Source Comments (unrecognize d section and content) In the event this informatio n is protected by the Federal Confidentiality of Alcohol and Drug Abuse Patient Records regulations: The Federal rules restrict any use of the information to criminally investigate or prosecute any alcohol or drug abuse patient.[facility] Institute[facility] the event this information is protected by the Federal Confidentiality of Alcohol and Drug Abuse Patient Records regulations: The Federal rules restrict any use of the information to criminally investigate or prosecute any alcohol or drug abuse patient.[facility] InstituteIn the event this information is protected by the Federal Confidentiality of Alcohol and Drug Abuse Patient Records regulations: The Federal rules restrict any use of the information to criminally investigate or prosecute any alcohol or drug abuse patient.[facility] InstituteIn the event this information is protected by the Federal Confidentiality of Alcohol and Drug Abuse Patient Records regulations: The Federal rules restrict any use of the information to criminally investigate or prosecute any alcohol or drug abuse patient.[facility] InstituteIn the event this information is protected by the Federal Confidentiality of Alcohol and Drug Abuse Patient Records regulations: The Federal rules restrict any use of the information to criminally investigate or prosecute any alcohol or drug abuse patient.[facility] InstituteIn the event this information is protected by the Federal Confidentiality of Alcohol and Drug Abuse Patient Records regulations: The Federal rules restrict any use of the information to criminally investigate or prosecute any alcohol or drug abuse patient.[facility] InstituteIn the event this information is protected by the Federal Confidentiality of Alcohol and Drug Abuse Patient Records regulations: The Federal rules restrict any use of the information to criminally investigate or prosecute any alcohol or drug abuse patient.[facility] InstituteIn the event this information is protected by the Federal Confidentiality of Alcohol and Drug Abuse Patient Records regulations: The Federal rules restrict any use of the information to criminally investigate or prosecute any alcohol or drug abuse patient.[facility] InstituteIn the event this information is protected by the Federal Confidentiality of Alcohol and Drug Abuse Patient Records regulations: The Federal rules restrict any use of the information to criminally investigate or prosecute any alcohol or drug abuse patient.[facility] InstituteIn the event this information is protected by the Federal Confidentiality of Alcohol and Drug Abuse Patient Records regulations: The Federal rules restrict any use of the information to criminally investigate or prosecute any alcohol or drug abuse patient.[facility] InstituteIn the event this information is protected by the Federal Confidentiality of Alcohol and Drug Abuse Patient Records regulations: The Federal rules restrict any use of the information to criminally investigate or prosecute any alcohol or drug abuse patient.[facility] InstituteIn the event this information is protected by the Federal Confidentiality of Alcohol and Drug Abuse Patient Records regulations: The Federal rules restrict any use of the information to criminally investigate or prosecute any alcohol or drug abuse patient.[facility] InstituteIn the event this information is protected by the Federal Confidentiality of Alcohol and Drug Abuse Patient Records regulations: The Federal rules restrict any use of the information to criminally investigate or prosecute any alcohol or drug abuse patient.[facility] InstituteIn the event this information is protected by the Federal Confidentiality of Alcohol and Drug Abuse Patient Records regulations: The Federal rules restrict any use of the information to criminally investigate or prosecute any alcohol or drug abuse patient.[facility] InstituteIn the event this information is protected by the Federal Confidentiality of Alcohol and Drug Abuse Patient Records regulations: The Federal rules restrict any use of the information to criminally investigate or prosecute any alcohol or drug abuse patient.[facility] InstituteIn the event this information is protected by the Federal Confidentiality of Alcohol and Drug Abuse Patient Records regulations: The Federal rules restrict any use of the information to criminally investigate or prosecute any alcohol or drug abuse patient.[facility] InstituteIn the event this information is protected by the Federal Confidentiality of Alcohol and Drug Abuse Patient Records regulations: The Federal rules restrict any use of the information to criminally investigate or prosecute any alcohol or drug abuse patient.[facility] InstituteIn the event this information is protected by the Federal Confidentiality of Alcohol and Drug Abuse Patient Records regulations: The Federal rules restrict any use of the information to criminally investigate or prosecute any alcohol or drug abuse patient.[facility] InstituteIn the event this information is protected by the Federal Confidentiality of Alcohol and Drug Abuse Patient Records regulations: The Federal rules restrict any use of the information to criminally investigate or prosecute any alcohol or drug abuse patient.[facility] InstituteIn the event this information is protected by the Federal Confidentiality of Alcohol and Drug Abuse Patient Records regulations: The Federal rules restrict any use of the information to criminally investigate or prosecute any alcohol or drug abuse patient.[facility] InstituteIn the event this information is protected by the Federal Confidentiality of Alcohol and Drug Abuse Patient Records regulations: The Federal rules restrict any use of the information to criminally investigate or prosecute any alcohol or drug abuse patient.[facility] InstituteIn the event this information is protected by the Federal Confidentiality of Alcohol and Drug Abuse Patient Records regulations: The Federal rules restrict any use of the information to criminally investigate or prosecute any alcohol or drug abuse patient.[facility] InstituteIn the event this information is protected by the Federal Confidentiality of Alcohol and Drug Abuse Patient Records regulations: The Federal rules restrict any use of the information to criminally investigate or prosecute any alcohol or drug abuse patient.[facility] Reason for Visit (unrecogniz ed section and content) Reason Comments Radiology NM Specialty Diagnoses / Procedures Referred By Contac t Referred To Contact MOLECULAR & FUNCTIONAL IMAGING Diagnoses Examination of participant or control in clinical research Procedures NM PET/CT BRAIN PLAQUE IMAGING PET IMAGING CT FOR ATTENUATION LIMITED AREA Amilcar Bradford MD, MD, PhD [address] [place] [address] Molecular & Functional Imaging [address] [id number] Referral ID Status Reason Start Date Expiration Date V isits Requested Visits Authorized [id number] Closed Auto-Generate d Referral 09/15/2024 10/14/2025 1 [...] MRI Specialty Diagnoses / Procedures Referred By Contac t Referred To Contact MR IMAGING Diagnoses Examination for normal comparison or control in clinical research Procedures MRI BRAIN WO IVCON MRI BRAIN BRAIN STEM W/O CONTRAST MATERIAL Amilcar Bradford MD, , PhD [address] [place] [address] [place] [address] Referral ID Status Reason Start Date Expiration Date V isits Requested Visits Authorized [id number] Closed Auto-Generate d Referral 01/27/2024 02/24/2025 1 [...] Care Teams (unrecognized sec tion and content) Honeycomb Decapper Relationship Specialty Start Date End Date Emi Cook, VICE PRESIDENT PLANNING.CHILD SPECIALIST [address] [facility] [address] [place] [address] PCP - General Family Practice 10/06/19 Honeycomb Decapper Relationship Specialty Start Date End Date Emi Cook [address] [place] [address] PCP - General Nurse Practitioner 09/10/21 Honeycomb Decapper Relationship Specialty Start Date End Date Emi Cook, VICE PRESIDENT PLANNING.CHILD SPECIALIST [address] [place], [place] [phone] PCP - General Family Medicine 10/06/19 Team Status: Active Member Role Status Dates Emi Cook POWERHOUSE ELECTRICIAN APPRENTICE, POWERHOUSE ELECTRICIAN APPRENTICE-C Primary Care Provider Active Team Status: Inactive Member Role Status Dates Emi Cook POWERHOUSE ELECTRICIAN APPRENTICE, POWERHOUSE ELECTRICIAN APPRENTICE-C Primary Care Pr ovider, Attending Provider, Referring Provider Active Team Status: Inactive Member Role Status Dates Emi Cook POWERHOUSE ELECTRICIAN APPRENTICE, POWERHOUSE ELECTRICIAN APPRENTICE-C Primary Care Provider, Attend ing Provider Active Honeycomb Decapper Relationship Specialty Start Date End Date Emi Cook, VICE PRESIDENT PLANNING.CHILD SPECIALIST [address] [place], [place] [phone] PCP - General Family Medicine 10/06/19 Honeycomb Decapper Relationship Specialty Start Date End Date Emi Cook, VICE PRESIDENT PLANNING.CHILD SPECIALIST [address] [place], [place] [id number] PCP - General Family Medicine 10/06/19 Honeycomb Decapper Relationship Specialty Start Date End Date Emi Cook, VICE PRESIDENT PLANNING.CHILD SPECIALIST [address] [place], [place] [phone] PCP - General Family Medicine 10/06/19 Honeycomb Decapper Relationship Specialty Start Date End Date Emi Cook [address] [place] [address] PCP - General 09/10/21 Honeycomb Decapper Relationship Specialty Start Date End Date Emi Cook [address] [place] [address] PCP - General 09/10/21 Honeycomb Decapper Relationship Specialty Start Date End Date Emi Cook, VICE PRESIDENT PLANNING.CHILD SPECIALIST [address] [place], [place] [phone] PCP - General Family Medicine 10/06/19 Honeycomb Decapper Relationship Specialty Start Date End Date Emi Cook, VICE PRESIDENT PLANNING.CHILD SPECIALIST [address] [place] [address] PCP - General Family Medicine 10/06/19 Honeycomb Decapper Relationship Specialty Start Date End Date Emi Cook, VICE PRESIDENT PLANNING.CHILD SPECIALIST [address] [place], [place] [phone] PCP - General Family Medicine 10/06/19 Honeycomb Decapper Relationship Specialty Start Date End Date Emi Cook, VICE PRESIDENT PLANNING.CHILD SPECIALIST [address] [place], [place] [phone] PCP - General Family Medicine 10/06/19 Honeycomb Decapper Relationship Specialty Start Date End Date Emi Cook [address] [place] [address] PCP - General 09/10/21 Honeycomb Decapper Relationship Specialty Start Date End Date Joey Emi [address] [place] [address] PCP - General 09/10/21 Honeycomb Decapper Relationship Specialty Start Date End Date Ventura Cooka [address] [place] [address] PCP - General Nurse Practitioner 01/25/24 Honeycomb Decapper Relationship Specialty Start Date End Date Emi Cook, VICE PRESIDENT PLANNING.CHILD SPECIALIST [address] [place], [place] [phone] PCP - General Family Medicine 10/06/19 Honeycomb Decapper Relationship Specialty Start Date End Date Emi Cook [address] [facility] [place] [address] PCP - General Nurse Practitioner 01/25/24 Honeycomb Decapper Relationship Specialty Start Date End Date Emi Cook, VICE PRESIDENT PLANNING.CHILD SPECIALIST [address] [place], [place] [phone] PCP - General Family Medicine 10/06/19 Honeycomb Decapper Relationship Specialty Start Date End Date Joey Emi [address] [facility] [place] [address] PCP - General Nurse Practitioner 01/25/24 Honeycomb Decapper Relationship Specialty Start Date End Date Emi Cook, VICE PRESIDENT PLANNING.CHILD SPECIALIST [address] [place], [place] [phone] PCP - General Family Medicine 10/06/19 Honeycomb Decapper Relationship Specialty Start Date End Date Emi Cook, VICE PRESIDENT PLANNING.CHILD SPECIALIST [address] [place] [phone] PCP - General Family Medicine 10/06/19 Honeycomb Decapper Relationship Specialty Start Date End Date Celina Levy MD [facility] [place] [address] Physician Dermatology 05/09/23 Honeycomb Decapper Relationship Specialty Start Date End Date Emi Cook [address] [facility] [place] [place] [phone] PCP - General Nurse Practitioner 01/25/24 Honeycomb Decapper Relationship Specialty Start Date End Date Emi Cook, VICE PRESIDENT PLANNING.CHILD SPECIALIST [address] [place], [place] [phone] PCP - General Family Medicine 10/06/19 Honeycomb Decapper Relationship Specialty Start Date End Date Emi Cook, VICE PRESIDENT PLANNING.CHILD SPECIALIST [address] [place], [place] [phone] PCP - General Family Medicine 10/06/19 Honeycomb Decapper Relationship Specialty Start Date End Date Emi Cook [address] [place] [address] PCP - General 09/10/21 Honeycomb Decapper Relationship Specialty Start Date End Date Emi Cook [address] [place] [address] PCP - General Nurse Practitioner 01/25/24 Honeycomb Decapper Relationship Specialty Start Date End Date Emi Cook, VICE PRESIDENT PLANNING.CHILD SPECIALIST [address] [place], [place] [phone] PCP - General Family Medicine 10/06/19 Honeycomb Decapper Relationship Specialty Start Date End Date Emi Cook [address] [place] [address] PCP - General Nurse Practitioner 01/25/24 Honeycomb Decapper Relationship Specialty Start Date End Date Emi Cook [address] [place] [address] PCP - General Nurse Practitioner 01/25/24 Honeycomb Decapper Relationship Specialty Start Date End Date Celina Levy MD [address] [place] [address] Physician Dermatology 05/09/23 Honeycomb Decapper Relationship Specialty Start Date End Date Cook, Dora [address] [place], [place] [phone] PCP - General Nurse Practitioner 01/25/24 Goals [...] BE BASED ON THE PRIMARY CLINICAL RECORDS. [facility]. provides no warranty or guarantee of the accuracy or completeness of information in this document.
[2025-10-31 08:49] LABS: Valproic Acid (Depakene) Level 51 ug/mL (50-100)
== END ==
LOC: OLS.SW 05:00
PROVIDERS: PCP Nurse Practitioner; Visit Provider Internal Medicine
DX: Z79.899 Other long term (current) drug therapy (principal)
CPT/HCPCS: 36415; 80164